=== PATIENT | male | born 1950 ===

== ENCOUNTER 2023-09-02 10:47 | Outpatient (AMB) | payer MEDICARE, MEDICAID, SELFPAY ==
[2023-09-02 10:55] VITALS: BP 163/83; PULSE 78; RESP 14; O2SAT 96; BMI 26.4
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
== END 2023-09-06 14:22 | disposition home or self-care (01) ==
PROVIDERS: PCP Physical Medicine & Rehabilitation; Visit Provider Internal Medicine
DX: M54.51 Vertebrogenic low back pain (principal); M47.816 Spondylosis without myelopathy or radiculopathy, lumbar region; M54.16 Radiculopathy, lumbar region
CPT/HCPCS: 99204

== ENCOUNTER → 2023-09-02 10:47 | Outpatient (BNVA) | payer MEDICARE, MEDICAID, SELFPAY | PROVIDERS: PCP Physical Medicine & Rehabilitation; Visit Provider Internal Medicine | DX: M54.51 Vertebrogenic low back pain (principal); M47.816 Spondylosis without myelopathy or radiculopathy, lumbar region; M54.16 Radiculopathy, lumbar region | CPT/HCPCS: 99202 ==

== ENCOUNTER 2023-10-12 08:53 | Outpatient (AMB) | payer MEDICARE, MEDICAID, SELFPAY ==
--- NOTE | 2023-10-12 09:32 | MHC.OFFVIS ---
Vital Signs 10/12/23 09:34 Height 6 ft Weight 195 lb BMI 26.4 BP 157/86 H Blood Pressure Location Rt brachial Position Sitting Respiration 15 Pulse 86 Pulse Source Pulse Oximeter Pulse Oximetry (%) 96 Oxygen Delivery Method Room Air Intake Visit Reasons: 6 Week Follow Up Allergies No Known Allergies Allergy (Verified 10/12/23 09:35) Medication List - Last Reconciled 10/12/23 by Marilu Rincon LPN amlodipine 5 mg PO BID cholecalciferol (vitamin D3) 50 mcg PO DAILY diazepam (Valium) 0.5 mg PO BID PRN irbesartan (Avapro) 300 mg PO DAILY rosuvastatin (Crestor) 40 mg PO DAILY tamsulosin 0.4 mg PO BEDTIME HPI HPI 6 Week Follow Up: Details: 72-year-old male who presents today to the office for a follow-up. He reports he has a long standing history of sciatica pain with worsening symptoms for the past 11 months. He notices he has difficulty lifting his hand up to his chin. He has excruciating pain in the back and lumbar area along with sciatica associated with difficulty bending over. 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 He recalls he had an injury to the back for which he was seen in the [place], and had taken many months to recover. He has been evaluated by Dr. Thomson and Dr. CHAVES. He has had 2 TFESI at the L4-L5 with [address] Thomson which provided some benefit. He states Dr. Cortez refused to operate for his sciatica pain. He is taking ibuprofen. He had an MRI scan at [facility]. She requests referral to a different spine surgery facility for a 2nd opinion. [facility] Medical History (Updated 09/05/23 @ 11:19 by Feliberto Delgadillo MD) BPH (benign prostatic hyperplasia) Hyperlipidemia Hypertension Physical Exam Vital Signs: Last Vital Signs Pulse 86 10/12/23 09:34 Resp 15 10/12/23 09:34 BP 157/86 H 10/12/23 09:34 Pulse Ox 96 10/12/23 09:34 Oxygen Delivery Method Room Air 10/12/23 09:34 BMI result Body Mass Index 26.4 General: Appears afebrile. Alert and oriented. Mood and affect appropriate. Follows and participates in conversation appropriately. Respiratory effort is unlabored. Able to transition from sit to stand unassisted. Ambulates with bilaterally normal heel strike and toe off. Assessment & Plan Assessment & Plan (1) Lumbar radiculitis: Code(s): M54.16 - Radiculopathy, lumbar region Category: Medical (2) Vertebrogenic low back pain: Code(s): M54.51 - Vertebrogenic low back pain Category: Medical Plan 73-year-old male with a combination of lumbar radiculitis causing left leg pain as well as vertebrogenic low back pain. I had a long discussion with him, and explained to him that while we can address his axial low back pain with a potential basivertebral nerve ablation, this is unlikely to help with his lumbar radicular symptoms. He has had 2 prior TFESIs that have provided positive diagnostic relief at the left L4-5 level. I recommended that he follow-up with an endoscopic supine surgeon to assess his candidacy for an endoscopic diskectomy/decompression. Once his lumbar radicular symptoms are addressed, we can potentially revisit the basivertebral nerve ablation for the axial low back component of his pain. Patient expressed understanding and is in agreement with the plan. He will contact Dr. Thomson to place a referral for [facility]. Scribed for Dr. Delgadillo by Alejandro medical illustrator, on 10/12/2023. I, Dr. Delgadillo, have personally reviewed and agree with the information entered by the scribe. Coding Level of Care Code Est Pt Level 4 (13339) Diagnoses Lumbar radiculitis M54.16 Vertebrogenic low back pain M54.51
[2023-10-12 09:34] VITALS: BP 157/86; PULSE 86; RESP 15; O2SAT 96; BMI 26.4
== END 2023-10-12 10:19 | disposition home or self-care (01) ==
PROVIDERS: PCP Physical Medicine & Rehabilitation; Visit Provider Internal Medicine
DX: M54.16 Radiculopathy, lumbar region (principal); M54.51 Vertebrogenic low back pain
CPT/HCPCS: 99214

== ENCOUNTER → 2023-10-12 08:53 | Outpatient (BNVA) | payer MEDICARE, MEDICAID, SELFPAY | PROVIDERS: PCP Physical Medicine & Rehabilitation; Visit Provider Internal Medicine | DX: M54.16 Radiculopathy, lumbar region (principal); M54.51 Vertebrogenic low back pain | CPT/HCPCS: 99212 ==

== ENCOUNTER 2023-11-07 09:25 | Outpatient (AMB) | payer MEDICARE, MEDICAID, SELFPAY ==
--- NOTE | 2023-11-07 10:06 | MHC.OFFVIS ---
Vital Signs 11/07/23 10:09 Height 6 ft Weight 195 lb BMI 26.4 BP 130/76 Blood Pressure Location Lt brachial Position Sitting Respiration 14 Pulse 80 Pulse Source Pulse Oximeter Pulse Oximetry (%) 98 Oxygen Delivery Method Room Air Intake Visit Reasons: Lumbar Pain/Discuss Ablations Allergies No Known Allergies Allergy (Verified 11/07/23 10:09) Medication List - Last Reconciled 11/07/23 by Marilu Rincon LPN amlodipine 5 mg PO BID cholecalciferol (vitamin D3) 50 mcg PO DAILY clonidine HCl 0.2 mg PO BID diazepam (Valium) 0.5 mg PO BID PRN irbesartan (Avapro) 300 mg PO DAILY rosuvastatin (Crestor) 40 mg PO DAILY tamsulosin 0.4 mg PO BEDTIME HPI HPI Lumbar Pain/Discuss Ablations: Details: 73-year-old male who presents today to the office for lumbar pain and discussion of BVN ablation. He had neck fusion surgery in the recent past. He states that he had limited ROM for three weeks post-surgery. He has also tried oxycodone with no relief. He was put in new orthotics after six months. He has been following up with the womens health nurse practitioner. He states that his bone in the foot is different. His weight has been affecting his bones. He requested to undergo a nerve ablation procedure for lower back pain. He has difficulty sitting straight for prolonged periods of time. He reports severe pain with weight bearing. He had a sciatic-pain attack and was seen in the ER. He states that he also saw a neurologist, who recommended evaluation for lumbar surgery. He was taking oral medications with minimal benefits. He had five epidural steroid injections and two transforaminal injections in the past. He lives alone and has no support for dressing changes at home. [facility] Medical History (Updated 09/05/23 @ 11:19 by Feliberto Delgadillo MD) BPH (benign prostatic hyperplasia) Hyperlipidemia Hypertension Review of Systems Const All systems reviewed & are unremarkable except as noted in HPI and below Physical Exam Vital Signs: Last Vital Signs Pulse 80 11/07/23 10:09 Resp 14 11/07/23 10:09 BP 130/76 11/07/23 10:09 Pulse Ox 98 11/07/23 10:09 Oxygen Delivery Method Room Air 11/07/23 10:09 BMI result Body Mass Index 26.4 General: Appears afebrile. Alert and oriented. Mood and affect appropriate. Follows and participates in conversation appropriately. Respiratory effort is unlabored. Able to transition from sit to stand unassisted. Ambulates with bilaterally normal heel strike and toe off. Results Reviewed Results Reviewed: No imaging is available for review. Assessment & Plan Assessment & Plan (1) Vertebrogenic low back pain: Code(s): M54.51 - Vertebrogenic low back pain Category: Medical (2) Lumbar radiculitis: Code(s): M54.16 - Radiculopathy, lumbar region Category: Medical Plan Discussed trying diagnostic facet injections prior to proceeding with basi-vertebral nerve ablation procedure as possible treatment option but he is not interested in short term solution. Therefore we will schedule him for a BVN ablation at L3-L4-L5 S1 level for vertebrogenic low back pain associated with Modic changes on MRI. Discussed the risks and benefits of the procedure with the patient in detail. All questions were answered. The patient is on board with the plan. Advised follow-up with spine surgery to continue discussions regarding addressing his radicular symptoms. Justification for interventional therapy: ? Patient with average pain > 6/10 ? Patient has exhausted conservative therapy ? Patient unable to tolerate physical therapy due to pain. . Patient has a good understanding of their pain condition and has appropriate mental and social support Scribed for Dr. Delgadillo by Herman White, medical staff coordinator, on 11/07/2023. I, Dr. Delgadillo, have personally reviewed and agree with the information entered by the scribe. Coding Level of Care Code Est Pt Level 3 (25920) Diagnoses Vertebrogenic low back pain M54.51 Lumbar radiculitis M54.16
[2023-11-07 10:09] VITALS: BP 130/76; PULSE 80; RESP 14; O2SAT 98; BMI 26.4
== END 2023-11-07 10:53 | disposition home or self-care (01) ==
LOC: HO.PMC 09:26
PROVIDERS: PCP Physical Medicine & Rehabilitation; Visit Provider Internal Medicine
DX: M54.51 Vertebrogenic low back pain (principal); M54.16 Radiculopathy, lumbar region
CPT/HCPCS: 99213

== ENCOUNTER → 2023-11-07 09:25 | Outpatient (BNVA) | payer MEDICARE, MEDICAID, SELFPAY | PROVIDERS: PCP Physical Medicine & Rehabilitation; Visit Provider Internal Medicine | DX: M54.51 Vertebrogenic low back pain (principal); M54.16 Radiculopathy, lumbar region | CPT/HCPCS: 99212 ==

== ENCOUNTER 2023-12-28 09:29 | Day surgery (SDC) | payer MEDICARE, MEDICAID, SELFPAY ==
--- NOTE | 2023-12-27 09:57 | P.CONAN_ITS ---
Documented by User: Heydi Taveras NP 12/27/23 09:57 HPI - Anesthesia Eval Consult details Narrative: 73yo M for L3,L4,L5 and S1 Basivertebral Nerve Ablation (Intracept RFA) PMFSH Active Problems Active Problems: All Active Problems Lumbar radiculitis (Acute) Lumbar spondylosis (Acute) Vertebrogenic low back pain (Acute) Past Medical History Medical History (Updated 12/28/23 @ 10:22 by Leslie Gillis, RN) Pre-diabetes BRIANA (obstructive sleep apnea) BPH (benign prostatic hyperplasia) Hyperlipidemia Hypertension Surgical History Surgical History (Updated 12/28/23 @ 10:24 by Leslie Gillis RN) History of orthopedic surgery H/O hernia repair History of knee replacement Social History Social History Are you a primary personal care assistant to a significant other at home: No Do you presently have visiting nurse or other home services: No Patient Tobacco Use Status: Never used Tobacco Use of substances other than those prescribed or required for medical reasons: No Have you been hit, kicked, punched, or otherwise hurt by someone within the past year? If so, by whom?: No Are you DNR?: No Advance Directives: No Advance Directives Information Provided: Yes (Sister Hyun Green/Yefri (per patient)) Advance Directives on File: No Recently lost weight without trying: No How much weight loss: Not applicable Eating poorly because of decreased appetite: No Nutrition screen score: 0 Nutrition Risks: No Nutritional Risk Poor oral hygiene: No Meds Allergies Allergy/AdvReac Type Severity Reaction Status Date / Time No Known Allergies Allergy Verified 12/28/23 10:11 Home Medications ?Medication ?Instructions ?Recorded ?Confirmed ?Last Taken ?Type amlodipine 5 mg tablet 5 mg PO BID 09/02/23 12/28/23 12/28/23 History cholecalciferol (vitamin D3) 50 50 mcg PO DAILY 09/02/23 12/28/23 Unknown History mcg (2,000 unit) capsule diazepam 2 mg tablet (Valium) 0.5 mg PO BID PRN Anxiety 09/02/23 12/28/23 Unknown History irbesartan 300 mg tablet (Avapro) 300 mg PO DAILY 09/02/23 12/28/23 12/27/23 History rosuvastatin 40 mg tablet (Crestor) 40 mg PO DAILY 09/02/23 12/28/23 Unknown History tamsulosin 0.4 mg capsule 0.4 mg PO BEDTIME 09/02/23 12/28/23 Unknown History clonidine HCl 0.1 mg tablet 0.2 mg PO BID 11/07/23 12/28/23 Unknown History Assessment and Plan Assessment Anesthesia Assessment: Chart Reviewed Documented by User: Tashia Escobar MD 12/28/23 11:10 [facility] Past Medical History Medical History (Updated 12/28/23 @ 10:22 by Leslie Gillis RN) Pre-diabetes BRIANA (obstructive sleep apnea) BPH (benign prostatic hyperplasia) Hyperlipidemia Hypertension Family History Family history of problems with anesthesia: No Surgical History Surgical History (Updated 12/28/23 @ 10:24 by Leslie Gillis RN) History of orthopedic surgery H/O hernia repair History of knee replacement History of Problems with Anesthesia: No Social History Social History Are you a primary personal care assistant to a significant other at home: No Do you presently have visiting nurse or other home services: No Patient Tobacco Use Status: Never used Tobacco Use of substances other than those prescribed or required for medical reasons: No Have you been hit, kicked, punched, or otherwise hurt by someone within the past year? If so, by whom?: No Are you DNR?: No Advance Directives: No Advance Directives Information Provided: Yes (Sister Hyun Green/Yefri (per patient)) Advance Directives on File: No Recently lost weight without trying: No How much weight loss: Not applicable Eating poorly because of decreased appetite: No Nutrition screen score: 0 Nutrition Risks: No Nutritional Risk Poor oral hygiene: No Meds Allergies Allergy/AdvReac Type Severity Reaction Status Date / Time No Known Allergies Allergy Verified 12/28/23 10:11 Home Medications ?Medication ?Instructions ?Recorded ?Confirmed ?Last Taken ?Type amlodipine 5 mg tablet 5 mg PO BID 09/02/23 12/28/23 12/28/23 History cholecalciferol (vitamin D3) 50 50 mcg PO DAILY 09/02/23 12/28/23 Unknown History mcg (2,000 unit) capsule diazepam 2 mg tablet (Valium) 0.5 mg PO BID PRN Anxiety 09/02/23 12/28/23 Unknown History irbesartan 300 mg tablet (Avapro) 300 mg PO DAILY 09/02/23 12/28/23 12/27/23 History rosuvastatin 40 mg tablet (Crestor) 40 mg PO DAILY 09/02/23 12/28/23 Unknown History tamsulosin 0.4 mg capsule 0.4 mg PO BEDTIME 09/02/23 12/28/23 Unknown History clonidine HCl 0.1 mg tablet 0.2 mg PO BID 11/07/23 12/28/23 Unknown History Exam Airway Mallampati Class: II (caps laterally) TM Dist: >3cm Neck ROM: Full Heart: rrr Lungs: cta Assessment and Plan Assessment Anesthesia Assessment: Anesthesia Plan Discussed Final Anesthetic Review Family History of Problems with Anesthesia: No History of Problems with Anesthesia: No NPO: Yes ASA Class: III Final Preanesthetic Review: No Changes in Pt Med Stat, Meds/Allgs Chart Reviewed and Consent Obtained/Reviewed Patient Risk: Low Procedure Risk: Low Anesthetic Plan Anesthetic Plan: GA Disposition: Standard PACU
[2023-12-28] VITALS (10 sets, daily range): BP systolic 142–167; BP diastolic 79–92; PULSE 77–81; RESP 16–20; TEMP 36.2–37; O2SAT 91–96; BMI 26.2
[2023-12-28] MEDS: Lactated Ringers 1,000 ML 100 ML IVCONT (10:51)
[2023-12-28] MEDS: dexAMETHasone sod phosphate 4 MG/ML VIAL IVPUSH (10:51)
[2023-12-28 12:08] LABS: MRSA Nasal PCR NEGATIVE (Negative); SA Nasal PCR POSITIVE (Negative)
--- NOTE | 2023-12-28 12:14 | MHC.SHP ---
Pre-Procedural Eval Section A - 24 Hr Update-Section A only Date of Service: 12/28/23 The patient is an INPATIENT: No Changes since office visit: Yes Patient answered all questions The patient has been examined within 24 hours of the surgical procedure. The History & Physical has been completed within 30 days and I have reviewed it.: No Section B - Complete if H&P > 30 days Chief Complaint: Vertebrogenic low back pain Relevant Family History (Specify if Yes): No Relevant Social History: None Present Medications: see Short Stay Collaborative assessment Medical History: No relevant PMH History of Previous Operations: No relevant previous surgery Allergies: Allergies Allergy/AdvReac Type Severity Reaction Status Date / Time No Known Allergies Allergy Verified 12/28/23 10:11 Review of Systems Sugical H&P ROS: Negative: Constitution, Cardiovascular and Respiratory Exam Surgical H&P Exam: Normal: HEENT, Normal: Heart and Normal: Lungs Plan Diagnosis/Plan: Unchanged I have reviewed the history and physical and performed a pertinent physical examination on my patient. No changes have occurred unless specified. Time Spent With Patient Time: Total time managing care of this patient today ____ minutes.
--- NOTE | 2023-12-28 14:55 | PM.OP ---
Brief Operative Note Date of Service: 12/28/23 Pre-op diagnosis: Vertebrogenic low back pain Post-op diagnosis: same Procedure: Basivertebral nerve ablation (Intracept procedure) L3, L4, L5, S1 Surgeon: Feliberto Delgadillo MD Anesthesia: GETA Was an Feltmaker And Weigher used for this Procedure?: No Estimated blood loss (mL): 20 Pathology: none sent Condition: stable Disposition: PACU
--- NOTE | 2023-12-28 14:56 | P.OP_ITS ---
Operative Note Operative Note Date of Service: 12/28/23 Narrative: Preoperative diagnosis: Vertebrogenic low back pain Postoperative diagnosis: Same Procedure: Basivertebral nerve (BVN) ablation ? Intracept Procedure L3, L4, L5, S1 Procedure Time Out: Patient ID confirmed, correct procedure to be performed, correct site and/or side for procedure as per marked location and correct medication(s), including antibiotic to be used for the procedure. Description of Procedure: After receiving anesthesia in the supine position, the patient was placed prone on the operating room table and all pressure points w ere appropriately padded. The back was sterilely prepped and draped. The C-arm was sterilely draped and moved into position to visualize the S1 vertebral body in the AP and lateral plane. The C-arm was rotated to a Horn view to square off the superior endplate at S1. The C-arm was then rotated to the right approximately 15-20 degrees for an approach to the right S1 pedicle. The skin entry point was identified and infiltrated with 1% lidocaine using a 25-gauge 1- 1/2 inch needle. A 22-gauge 5-inch spinal needle was used to anesthetize the track to the pedicle and periosteum and confirm the introducer cannula trajectory. A skin incision was made with 15 scalpel blade. The introducer cannula with bevel tip was then introduced through the skin, subcutaneous tissue and paraspinal muscle until bony contact was made. The position was checked in the AP and lateral plane. Using a mallet, the trocar was then advanced thru the pedicle to the posterior aspect of the vertebral body using a combination of AP and lateral views to ensure appropriate traversing of the pedicle and no breaching of the pedicle medially. Once the trocar was in the posterior aspect of the S1 vertebral body, the trocar was removed from the cannula and the curved cannula assembly with the nitinol J-stylet was inserted. The spin wheel was rotated counterclockwise permitting excursion of the J-stylet. The curved can nula assembly was then advanced using a mallet in 1-2 mm increments. The J- stylet was observed to traverse the vertebral body in the AP and lateral views. The J-stylet was removed and replaced with the straight stylet to reach the BVN target. Target was reached when the tip of the stylet was 50% anterior of the posterior wall of the S1 in the lateral view (midway between the superior and inferior endplates) and it crossed the midline of the S1 spinous process in the AP view. The stylet was then removed. The bipolar radiofrequency (RF) probe was connected to the generator and then inserted into the introducer cannula in its ablation position. The spin wheel was rotated clockwise to retract the PEEK sleeve to expose the proximal electrode on the radiofrequency probe. The BVN was then ablated using [employer]?s targeted RFG algorithm. While the ablation was occurring at S1, the C-arm was moved to visualize the target at the superolateral aspect of the L5 vertebral body. The C-arm was rota devan to square off the superior endplate at L5 and rotated left to obtain an oblique view. The superolateral left L5 pedicle was identified for access. The same process was utilized to place the tip of the cannular 40% anterior of the posterior wall of the L5 in the lateral view and it crossed the midline of the L5 spinous process in the AP view. The stylet was then removed. The bipolar radiofrequency (RF) probe was removed from the previous vertebral body, the tip cleaned and was inserted into the introducer cannula in its ablation position. The spin wheel was rotated clockwise to retract the PEEK sleeve to expose the proximal electrode on the radiofrequency probe. The BVN was then ablated using [employer]?s targeted RFG algorithm. While the ablation was occurring at L5, the C-arm was moved to visualize the target at the superolateral aspect of the L3 vertebral body using the approach similar to the L5 vertebral body. The C-arm was rotated to square off the superior endplate at L3 and rotated approximately to the right to obtain an oblique view. The superolateral right L3 pedicle was identified, and the skin entry point identified. Same steps were followed as for L5. Target was reached when the tip of the stylet was 30% anterior of the posterior wall of the L3 in the lateral view and it crossed the midline of the L3 spinous process in the AP view. The stylet was then removed. The bipolar radiofrequency (RF) probe was removed from the previous vertebral body, the tip cleaned and was inserted into the introducer cannula in its ablation position. The spin wheel was rotated cl ockwise to retract the PEEK sleeve to expose the proximal electrode on the radiofrequency probe. The BVN was then ablated using [employer]?s targeted RFG algorithm. While the ablation was occurring at L3, the C-arm was moved to visualize the target at the superolateral aspect of the L4 vertebral body. The C-arm was rotated to square off the superior endplate at L4 and rotated left to obtain an oblique view. The superolateral left L4 pedicle was identified for access. The same process was utilized to place the tip of the cannular 30% anterior of the posterior wall of the L4 in the lateral view and it crossed the midline of the L4 spinous process in the AP view. The stylet was then removed. The bipolar radiofrequency (RF) probe was removed from the previous vertebral body, the tip cleaned and was inserted into the introducer cannula in its ablation position. The spin wheel was rotated clockwise to retract the PEEK sleeve to expose the proximal electrode on the radiofrequency probe. The BVN was then ablated using [employer]?s targeted RFG algorithm. With all ablations completed, the instruments were removed from the vertebral bodies. The surgical wounds were closed with Mastisol and Steri-Strips and a sterile dressing was applied. The patient was returned to the supine position and the anesthesia reversed. The patient tolerated the procedure well and was brought to the recovery room. No changes in lower extremity strength or sensation was reported by the patient in the PACU. The patient was provided post-op and follow up instructions. Complications: None Estimate Blood Loss: 20 mL
[2023-12-28] MEDS: fentaNYL citrate/PF 100 MCG/2 ML VIAL 50 MCG IVPUSH (15:12)
== END 2023-12-28 16:22 | disposition home or self-care (01) ==
PROVIDERS: Registered Nurse Emergency; PCP Internal Medicine; Visit Provider Internal Medicine
PROC: (CPT 64628; principal; 2023-12-28 11:30)
DX: M54.51 Vertebrogenic low back pain (principal); M54.16 Radiculopathy, lumbar region; I10 Essential (primary) hypertension; E78.5 Hyperlipidemia, unspecified; R73.03 Prediabetes; N40.0 Benign prostatic hyperplasia without lower urinary tract symptoms; G47.33 Obstructive sleep apnea (adult) (pediatric); Z79.899 Other long term (current) drug therapy; Z98.1 Arthrodesis status
CPT/HCPCS: 64628; 64629 ×2; 87640; 87641; C1889; J0690; J1100; J2003; J2371; J2405; J2704; J3010

== ENCOUNTER → 2023-12-28 09:29 | Outpatient (BNV) | payer MEDICARE, MEDICAID, SELFPAY | PROVIDERS: PCP Internal Medicine; Visit Provider Internal Medicine | DX: M54.51 Vertebrogenic low back pain (principal) | CPT/HCPCS: 64628; 64629 ==

== ENCOUNTER 2024-01-04 08:33 | Outpatient (AMB) | payer MEDICARE, MEDICAID, SELFPAY ==
[2024-01-04 09:05] VITALS: BP 180/88; PULSE 72; RESP 15; O2SAT 95; BMI 26.3
--- NOTE | 2024-01-04 09:05 | MHC.OFFVIS ---
Vital Signs 01/04/24 09:05 Height 6 ft 1 in Weight 199 lb BMI 26.3 BP 180/88 H Blood Pressure Location Lt radial Position Sitting Respiration 15 Pulse 72 Pulse Source Pulse Oximeter Pulse Oximetry (%) 95 Oxygen Delivery Method Room Air Intake Visit Reasons: S/p L3, L4, L5, and S1 BVN (Intracept) 12/28/23 Allergies No Known Allergies Allergy (Verified 01/04/24 09:08) Medication List - Last Reconciled 01/04/24 by Marilu Rincon LPN amlodipine 5 mg PO BID cholecalciferol (vitamin D3) 50 mcg PO DAILY clonidine HCl 0.2 mg PO BID diazepam (Valium) 0.5 mg PO BID PRN irbesartan (Avapro) 300 mg PO DAILY oxycodone-acetaminophen 5-325 mg 1 tab PO TID PRN rosuvastatin (Crestor) 40 mg PO DAILY tamsulosin 0.4 mg PO BEDTIME HPI HPI S/p L3, L4, L5, and S1 BVN (Intracept) 12/28/23: Details: 73-year-old male who presents today to the office for status post L3, L4, L5, S1 BVN ablation. The patient reports mild initial relief following the procedure. He has been doing well since the surgery. He continues to have some soreness at the needle insertion sites, his left side feels better than the right, but seems to be improving at this point.He has been having some polyarticular pain issues, especially in his shoulders, worse on the left side than right, which have been very painful lately. He reports pain with ROM. He also reports pain in the hip which radiates down to the ankles. He reports difficulty getting up from the chair and sleeping due to pain. He notices his pain is more muscular which is different from before. He is following up with a surgeon next week, and is inquiring if he needs to wait for injection until he sees him. He reports pain in the bottom of the feet and he was previous advised to wear arch supports. He is taking Percocet, which causes weakness, dizzy, nausea, headache, and vomiting. He used to be on oxycodone in the past with benefit. He reports feeling anxious and depressed due to his health condition. He is planning to receive medication for anxiety. He was noted to have elevated BP and his initial BP was 185/111 today. He is seeing a nephrology for elevated BP. He was advised to avoid NSAIDs. Past procedures 12/28/23: Basivertebral nerve (BVN) ablation ? Intracept Procedure L3, L4, L5, S1: mild initial relief. [facility] Medical History (Updated 01/17/24 @ 08:29 by Feliberto Delgadillo MD) Pre-diabetes BRIANA (obstructive sleep apnea) BPH (benign prostatic hyperplasia) Hyperlipidemia Hypertension Surgical History (Updated 12/28/23 @ 10:24 by Leslie Gillis RN) History of orthopedic surgery H/O hernia repair History of knee replacement Social History Are you a primary critical care clinical nurse specialist to a significant other at home: No Do you presently have visiting nurse or other home services: No Patient Tobacco Use Status: Never used Tobacco Review of Systems Const All systems reviewed & are unremarkable except as noted in HPI and below Physical Exam Vital Signs: Last Vital Signs Pulse 72 01/04/24 09:05 Resp 15 01/04/24 09:05 BP 180/88 H 01/04/24 09:05 Pulse Ox 95 01/04/24 09:05 Oxygen Delivery Method Room Air 01/04/24 09:05 BMI result Body Mass Index 26.3 General: Appears afebrile. Alert and oriented. Mood and affect appropriate. Follows and participates in conversation appropriately. Respiratory effort is unlabored. Able to transition from sit to stand unassisted. Ambulates with bilaterally normal heel strike and toe off. Incisions well healed. Results Reviewed Results Reviewed: No imaging is available for review. Assessment & Plan Assessment & Plan (1) Vertebrogenic low back pain: Code(s): M54.51 - Vertebrogenic low back pain Category: Medical (2) Chronic shoulder pain: Code(s): M25.519 - Pain in unspecified shoulder; G89.29 - Other chronic pain Category: Medical Plan Discussed intraarticular steroid injection vs PRP injection vs temporary nerve stimulation and permanent nerve stimulation as possible treatments for the shoulder pain. The patient will continue his home exercise program for low back rehabilitation. For his shoulder, he has a follow-up coming up with Dr. Walker. I asked him to have Dr. Walker fax us their notes and exam findings and we can potentially then plan for an ultrasound guided intraarticular glenohumeral/supraspinatus tendon injection. I also discussed PRP and temporary PNS with him, but he would like to hold off on those options for now. Scribed for Dr. Delgadillo by Alejandro medical office representative, on 01/04/2024. I, Dr. Delgadillo, have personally reviewed and agree with the information entered by the scribe. Coding Level of Care Code Est Pt Level 4 (04866) Diagnoses Vertebrogenic low back pain M54.51 Chronic shoulder pain M25.519; G89.29
== END 2024-01-04 09:42 | disposition home or self-care (01) ==
PROVIDERS: PCP Internal Medicine; Visit Provider Internal Medicine
DX: M54.51 Vertebrogenic low back pain (principal); M25.519 Pain in unspecified shoulder; G89.29 Other chronic pain
CPT/HCPCS: 99024

== ENCOUNTER → 2024-01-04 08:33 | Outpatient (BNVA) | payer MEDICARE, MEDICAID, SELFPAY | PROVIDERS: PCP Internal Medicine; Visit Provider Internal Medicine | DX: M54.51 Vertebrogenic low back pain (principal); M25.519 Pain in unspecified shoulder; G89.29 Other chronic pain; Z98.890 Other specified postprocedural states | CPT/HCPCS: 99212 ==

== ENCOUNTER 2024-01-25 10:31 | Outpatient (AMB) | payer MEDICARE, MEDICAID, SELFPAY ==
--- NOTE | 2024-01-25 10:39 | MHC.OFFVIS ---
Vital Signs 01/25/24 10:41 Height 6 ft 1 in Weight 199 lb BMI 26.3 BP 150/84 H Blood Pressure Location Lt brachial Position Sitting Respiration 15 Pulse 90 Pulse Source Pulse Oximeter Pulse Oximetry (%) 98 Oxygen Delivery Method Room Air Intake Visit Reasons: Shoulder Injetion Allergies No Known Allergies Allergy (Verified 01/25/24 10:42) Medication List - Last Reconciled 01/25/24 by Marilu Rincon LPN amlodipine 5 mg PO BID cholecalciferol (vitamin D3) 50 mcg PO DAILY clonidine HCl 0.2 mg PO BID diazepam (Valium) 0.5 mg PO BID PRN irbesartan (Avapro) 300 mg PO DAILY oxycodone-acetaminophen 5-325 mg 1 tab PO TID PRN rosuvastatin (Crestor) 40 mg PO DAILY tamsulosin 0.4 mg PO BEDTIME HPI HPI Shoulder Injetion: Details: 73-year-old male who presents to the office today for bilateral glenohumeral injection. He reports having sciatica pain which radiates down to the knees. He has had epidural injection to the back with Dr. Thomson. He still continues to have pain in the bilateral shoulder. He is following up with Dr. Santamaria next week, and is planning to discuss possible surgery. He notices pain in the scapular region while holding his pants. He states he underwent neck fusion with Dr. Slater. He used to do 20-35 bicep curls but is not able to do it now due to pain. He is frustrated that he is not able to workout. He had injections under fluoroscopy in 2021. He is inquiring about ablation. Denies any recent cough, cold, infection, fever or other significant changes in medical history since last office visit. Past procedures 12/28/23: Basivertebral nerve (BVN) ablation ? Intracept Procedure L3, L4, L5, S1: Reduced axial low back pain. [facility] Medical History (Updated 01/17/24 @ 08:29 by Feliberto Delgadillo MD) Pre-diabetes BRIANA (obstructive sleep apnea) BPH (benign prostatic hyperplasia) Hyperlipidemia Hypertension Surgical History (Updated 12/28/23 @ 10:24 by Leslie Gillis RN) History of orthopedic surgery H/O hernia repair History of knee replacement Social History Are you a primary respiratory care instructor to a significant other at home: No Do you presently have visiting nurse or other home services: No Patient Tobacco Use Status: Never used Tobacco Review of Systems Const All systems reviewed & are unremarkable except as noted in HPI and below Physical Exam Vital Signs: Last Vital Signs Pulse 90 01/25/24 10:41 Resp 15 01/25/24 10:41 BP 150/84 H 01/25/24 10:41 Pulse Ox 98 01/25/24 10:41 Oxygen Delivery Method Room Air 01/25/24 10:41 BMI result Body Mass Index 26.3 General: Appears afebrile. Alert and oriented. Mood and affect appropriate. Follows and participates in conversation appropriately. Respiratory effort is unlabored. Able to transition from sit to stand unassisted. Ambulates with bilaterally normal heel strike and toe off. Office Procedures AMB Joint Injection/Aspiration Joint Injection/Aspiration Primary Site: right shoulder Secondary Site: left shoulder Prep: site was prepped using aseptic technique and site was prepped using sterile technique Injected: 40 mg of, Kenalog, with 0.25 mL of and with 3 mL of (ropivacaine ) Procedure: The patient tolerated the procedure well Coding Details: An ultrasound image of the injection was taken and stored in the permanent record. - Glenohumeral with ultrasound guidance Procedure code (CPT) selection complete Results Reviewed Results Reviewed: Ultrasound exam did not reveal any obvious calcific tendinitis or rotator cuff pathology in either shoulder. Assessment & Plan Assessment & Plan (1) Chronic shoulder pain: Code(s): M25.519 - Pain in unspecified shoulder; G89.29 - Other chronic pain Category: Medical (2) Vertebrogenic low back pain: Code(s): M54.51 - Vertebrogenic low back pain Category: Medical Plan Patient is status post bilateral glenohumeral injections under US-guidance. Patient tolerated procedure well and was discharged home in stable condition with discharge instructions. All questions were answered. Follow up as needed. Scribed for Dr. Delgadillo by Alejandro bilingual medical receptionist, on 01/25/2024. I, Dr. Delgadillo, have personally reviewed and agree with the information entered by the scribe. Coding Level of Care Code Procedure Only Diagnoses Chronic shoulder pain M25.519; G89.29 Vertebrogenic low back pain M54.51 CPT Codes Coding - Joint 8: 62886 - Glenohumeral with ultrasound guidance ([id number])
[2024-01-25 10:41] VITALS: BP 150/84; PULSE 90; RESP 15; O2SAT 98; BMI 26.3
== END 2024-01-25 11:20 | disposition home or self-care (01) ==
PROVIDERS: PCP Internal Medicine; Visit Provider Internal Medicine
DX: M25.511 Pain in right shoulder (principal); G89.29 Other chronic pain; M54.51 Vertebrogenic low back pain
CPT/HCPCS: 20611

== ENCOUNTER → 2024-01-25 | Outpatient (BNVA) | payer MEDICARE, MEDICAID, SELFPAY | PROVIDERS: PCP Internal Medicine; Visit Provider Internal Medicine | DX: M25.512 Pain in left shoulder (principal); M25.511 Pain in right shoulder; M54.51 Vertebrogenic low back pain; G89.29 Other chronic pain | CPT/HCPCS: 20610; 20611 ==

== ENCOUNTER 2024-04-16 10:17 | Outpatient (AMB) | payer MEDICARE, MEDICAID, SELFPAY ==
--- NOTE | 2024-04-16 10:38 | A.OFFVIS_ITS ---
Vital Signs 04/16/24 10:39 Height 6 ft 1 in Weight 192 lb BMI 25.3 BP 145/80 H Blood Pressure Location Rt brachial Position Sitting Pulse 93 Pulse Source Pulse Oximeter Pulse Oximetry (%) 97 Oxygen Delivery Method Room Air Intake Visit Reasons: Shoulder Injection Parts Coordinator Required: No Allergies No Known Allergies Allergy (Verified 04/16/24 10:40) Medication List - Last Reconciled 04/16/24 by Madison Gill, SUPERVISOR [employer] WORKER amlodipine 5 mg PO BID cholecalciferol (vitamin D3) 50 mcg PO DAILY clonidine HCl 0.2 mg PO BID diazepam (Valium) 0.5 mg PO BID PRN irbesartan (Avapro) 300 mg PO DAILY rosuvastatin (Crestor) 40 mg PO DAILY tamsulosin 0.4 mg PO BEDTIME HPI HPI Shoulder Injection: Details: History of Present Illness The patient is a 73-year-old male presenting with chronic shoulder pain and sleep deprivation. 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 An injection from the last visit helped alleviate the shoulder pain for a significant period, yet the pain has returned, affecting his ability to sleep. The patient describes exasperating pain specifically when sleeping on his left side, complicated by living alone amidst stressful social dynamics. The patient's musculoskeletal complaints are compounded by chronic foot pain post knee replacement, which hinders his physical activity and worsens his overall mobility. He underwent neck fusion surgery last year, which led to muscle attrition in his left arm, further limiting his physical capacity. Medications such as NSAIDs are minimally effective due to gastrointestinal constraints. Pain Description - Chronic, severe shoulder pain with epik-jo-nwci osteoarthritis. - Exacerbated pain when sleeping on the left side. - Pain radiates to the right side but less severe. - Pain markedly affects the patient's sleep and daily function. - Foot pain post bilateral knee replacement affecting gait. - Pain intensified by lack of sleep and emotional distress. Physical Exam Appears afebrile. Alert and oriented. Mood and affect appropriate. Follows and participates in conversation appropriately. Respiratory effort is unlabored. Able to transition from sit to stand unassisted. Ambulates with bilaterally normal heel strike and toe off. Able to stand and walk on toes and heels. Pain Management - Affect: The patient experiences significant psychological distress due to chronic pain and sleep deprivation. - Analgesia: Previous injections provided substantial relief; current medications include NSAIDs but are ineffective due to side effects. - Adverse Effects: Gastrointestinal side effects from NSAIDs prevent effective pain management. - Activities of Daily Living: Severely limited by pain; unable to exercise or perform basic self-care effectively. - Aberrant Drug Related Behaviors: No aberrant behaviors noted; compliance with current medication regimen. AMB Joint Injection/Aspiration Joint Injection/Aspiration Primary Site: right shoulder Secondary Site: left shoulder Prep: site was prepped using aseptic technique and site was prepped using sterile technique Injected: 40 mg of, Kenalog, with 0.25 mL of and with 3 mL of (ropivacaine ) Procedure: The patient tolerated the procedure well Coding Details: An ultrasound image of the injection was taken and stored in the permanent record. - Glenohumeral with ultrasound guidance [facility] Medical History (Updated 01/17/24 @ 08:29 by Feliberto Delgadillo MD) Pre-diabetes BRIANA (obstructive sleep apnea) BPH (benign prostatic hyperplasia) Hyperlipidemia Hypertension Surgical History (Updated 12/28/23 @ 10:24 by Leslie Glilis RN) History of orthopedic surgery H/O hernia repair History of knee replacement Social History Are you a primary primary care pediatrician to a significant other at home: No Do you presently have visiting nurse or other home services: No Patient Tobacco Use Status: Never used Tobacco Physical Exam Vital Signs: Last Vital Signs Pulse 93 04/16/24 10:39 BP 145/80 H 04/16/24 10:39 Pulse Ox 97 04/16/24 10:39 Oxygen Delivery Method Room Air 04/16/24 10:39 BMI result Body Mass Index 25.3 Assessment & Plan Assessment & Plan (1) Chronic shoulder pain: Code(s): M25.519 - Pain in unspecified shoulder; G89.29 - Other chronic pain Category: Medical (2) Lumbar radiculitis: Code(s): M54.16 - Radiculopathy, lumbar region Category: Medical Plan Plan The patient's chronic shoulder pain was addressed today with steroid injection to provide symptom relief while minimizing the risk of joint damage. The patient's limited efficacy from traditional NSAIDs can be supplemented by trying CBD gummies for potential relief. Follow-up is scheduled in three months to assess treatment response and consider further interventions. In parallel, recommendations on sleep hygiene and managing pain-induced psychological distress were made to support the patient's overall well-being. Patient was informed and verbally consented to the use of an ambient scribe for clinic note documentation during this visit. Discussion Notes During the visit, I discussed with the patient the potential benefits and risks of receiving an injection for managing chronic shoulder pain, emphasizing a reduced dosage due to potential joint damage with repeated use. The patient was informed about the possibility of future shoulder replacement surgery should conservative treatments fail. I also discussed non-pharmacologic interventions, including modifications in sleep positioning and adaptive devices. The patient expressed understanding of the discussed risks and benefits and agreed with proceeding with the injection and use of CBD gummies. A three-month follow-up was scheduled to monitor progress. I emphasized the importance of maintaining social support and implementing strategies to manage stress and improve sleep quality. Patient Instructions - Return in three months for re-evaluation. - Try CBD gummies for additional pain relief. - Practice sleep hygiene and consider sleep position modifications for comfort. - Report any adverse effects or worsening symptoms immediately. - Maintain regular follow-ups and adhere to prescribed medication regimen. Coding Level of Care Code Est Pt Level 3 (07963) Diagnoses Chronic shoulder pain M25.519; G89.29 Lumbar radiculitis M54.16
[2024-04-16 10:39] VITALS: BP 145/80; PULSE 93; O2SAT 97; BMI 25.3
--- OUTSIDE RECORDS SUMMARY | 2024-04-16 11:32 | XMS_ITS | Encounter Summary ---
Author Organization [facility] Address [address] [place] [address] Phone Care Team Providers Care Emt Name Role Phone Ja Holley MD Primary Care Provider Encounter Details Date Type Department Care Team (Late st Contact Info) Description 03/16/2024 Documentation Only [facility], [address] [place] [address] Manuela Torres [address] [place] [address] Social History Tobacco Use Types Packs/Day Years Used Date Smoking Tobacco: Never Assessed Sex and Gender Information Value Date Recorded Sex Assigned at Not on file Legal Sex Male 5:20 PM EST Gender Identity Not on file Sexual Orientation Not on file documented as of this encounter Plan of Treatment Not on file documented as of this encounter Visit Diagnoses Not on filedocumented in this encounter Care Teams Emt Relationship Specialty Start Date End Date Ja Holley MD [address] [place] [address], [address] [place] [address] PCP - General Internal Medicine 02/21/24 documented as of this encounter
--- OUTSIDE RECORDS SUMMARY | 2024-04-16 11:32 | XMS_ITS | Encounter Summary ---
Author Organization [facility] Address [address] [place] [address] Phone Care Team Providers Care Vegetable Canner Name Role Phone Ja Holley MD Primary Care Provider Encounter Details Date Type Department Care Team (Late st Contact Info) Description 03/30/2024 Office Communication [facility], [address] [place] [address] Santa Santoyo [address] [place] [address] Social History Tobacco Use Types [...] on filedocumented in this encounter Care Teams Vegetable Canner Relationship Specialty Start Date End Date Ja Holley MD [address] [place] [address], [address] [place] [address] PCP - General Internal Medicine 02/21/24 documented as of this encounter
--- OUTSIDE RECORDS SUMMARY | 2024-04-16 11:32 | XMS_ITS | Encounter Summary ---
Author Organization [facility] Address [address] [place] [address] Phone Care Team Providers Care Vendor Analyst Name Role Phone Ja Holley MD Primary Care Provider [phone] Encounter Details Date Type Department Care Team (Late st Contact Info) Description 02/21/2024 Documentation Only [facility], [address] [place] [address] Laina MunozKISSIMMEE, [place] [address] [place] [address] Social History Tobacco Use Types [...] on filedocumented in this encounter Care Teams Vendor Analyst Relationship Specialty Start Date End Date Ja Holley MD [address] [place] [address], [address] [place], [place] [phone] PCP - General Internal Medicine 02/21/24 documented as of this encounter
--- OUTSIDE RECORDS SUMMARY | 2024-04-16 11:32 | XMS_ITS | Encounter Summary ---
Author Organization [facility] Address [address] [place] [address] Phone Care Team Providers Care Diamond Expert Name Role Phone Ja Holley MD Primary Care Provider Encounter Details Date Type Department Care Team (Late st Contact Info) Description 02/24/2024 Documentation Only [facility], [address] [place] [address] Laina MunozPIERCE, [place] [address] [place] [address] Social History Tobacco Use Types [...] on filedocumented in this encounter Care Teams Diamond Expert Relationship Specialty Start Date End Date Ja Holley MD [address] [place] [address], [address] [place], [place] [phone] PCP - General Internal Medicine 02/21/24 documented as of this encounter
--- OUTSIDE RECORDS SUMMARY | 2024-04-16 11:32 | XMS_ITS | Clinical Summary ---
Author Organization [facility] Address [address] [place] [address] Phone Care Team Providers Care Data Center Manager Name Role Phone Ja Holley MD Primary Care Provider Medications doxazosin (Cardura) 2 MG tablet Take 1 tablet (2 mg total) by mouth every night 30 tablet 3 03/07/2024 Active Active Problems Problem Noted Date Diagnosed Date Essential (primary) hypertension 03/07/2024 Encounters Date Type Department Care Team Description 03/30/2024 Office Communication [facility] [address] [place] [address] Santa Santoyo 03/16/2024 Documentation Only [facility] [address] [place] [address] Manuela Torres 03/07/2024 2:30 PM EST Office Visit [facility] [address] [place] [phone] Nathan Bacon MD Hypertension (Primary Dx); Essential (primary) hypertension 02/24/2024 Documentation Only [facility] [address] [place] [address] Laina Munoz MA 02/23/2024 Telephone [facility] [address] [place] [address] Laina Munoz MA 02/23/2024 Office Communication [facility] [address] [place] [address] Laina Munoz MA 02/21/2024 Documentation Only [facility] [address] [place] [address] Laina Munoz MA from Last 3 Months Social History Tobacco Use Types Packs/Day Years Used Date Smoking Tobacco: Never Assessed Sex and Gender Information Value Date Recorded Sex Assigned at Not on file Legal Sex Male 5:20 PM EST Gender Identity Not on file Sexual Orientation Not on file Plan of Treatment Health Maintenance Due Date Last Done Comments Colorectal Cancer Screening: Annual FOBT 09/08/1999 Colorectal Cancer Screening: Colonoscopy 09/08/1999 Colorectal Cancer Screening: Sigmoidoscopy 09/08/1999 Influenza Vaccine (#1) 2023 0, 11/08/2019, 12/19/2018, Additional history exists Diabetes: Hemoglobin A1C 02/23/2024 Diabetes: Ophthalmology Exam 02/23/2024 Diabetes: Pedal Pulse Checked 02/23/2024 Diabetes: Sensory Foot Exam 02/23/2024 Diabetes: Visual Foot Exam 02/23/2024 Pneumococcal Vaccine: 65+ Years Completed 12/27/2019, 12/16/2016 Hepatitis B Vaccine Aged Out No longe r eligible based on patient's age to complete this topic Insurance * Guarantor: Albert [employer] Account Type Relation to Patient Date of Phone Billing Address Personal/Family Self [address] [place] [address] MEDICARE MEDICAID [place] * Guarantor: Albert Green Account Type Relation to Patient Date of Phone Billing Address Personal/Family Self [address] [place] [address] * Guarantor: Albert [employer] Account Type Relation to Patient Date of Phone Billing Address Personal/Family Self [address] [place] [address] Care Teams Data Center Manager Relationship Specialty Start Date End Date Ja Holley MD [address] [place] [address], [address] [place] [address] PCP - General Internal Medicine 02/21/24
== END 2024-04-16 11:36 | disposition home or self-care (01) ==
PROVIDERS: PCP Internal Medicine; Visit Provider Internal Medicine
DX: M25.519 Pain in unspecified shoulder (principal); G89.29 Other chronic pain; M54.16 Radiculopathy, lumbar region
CPT/HCPCS: 99213

== ENCOUNTER → 2024-04-16 10:17 | Outpatient (BNVA) | payer MEDICARE, MEDICAID, SELFPAY | PROVIDERS: PCP Internal Medicine; Visit Provider Internal Medicine | DX: M25.511 Pain in right shoulder (principal); M25.512 Pain in left shoulder; G89.29 Other chronic pain; M54.16 Radiculopathy, lumbar region | CPT/HCPCS: 20611; 99212; J2795; J3301 ==

== ENCOUNTER 2024-07-18 09:00 | Outpatient (AMB) | payer MEDICARE, MEDICAID, SELFPAY ==
[2024-07-18 09:15] VITALS: BP 149/81; PULSE 74; RESP 16; O2SAT 97; BMI 23.9
--- NOTE | 2024-07-18 09:15 | MHC.OFFVIS ---
Vital Signs 07/18/24 09:15 Height 6 ft 1 in Weight 181 lb BMI 23.9 BP 149/81 H Blood Pressure Location Rt brachial Position Sitting Respiration 16 Pulse 74 Pulse Source Pulse Oximeter Pulse Oximetry (%) 97 Oxygen Delivery Method Room Air Intake Visit Reasons: Shoulder Injection Marketing Account Manager Required: No Chinese Medicine Practitioner: Chinese Medicine Practitioner Present Accompanied by: Nish Howard Allergies No Known Allergies Allergy (Verified 07/18/24 09:18) Medication List - Last Reconciled 07/18/24 by Marilu Rincon LPN amlodipine 5 mg PO BID cholecalciferol (vitamin D3) 50 mcg PO DAILY clonidine HCl 0.2 mg PO BID diazepam (Valium) 0.5 mg PO BID PRN olmesartan 40 mg PO DAILY rosuvastatin (Crestor) 40 mg PO DAILY tamsulosin 0.4 mg PO BEDTIME tirzepatide (Mounjaro) mg subcut HPI HPI Shoulder Injection: Details: History of Present Illness The patient is a 73-year-old male presenting with chronic pain management concerns. The patient has a longstanding history of an adrenal tumor, which has increased in size over the years but has not yet reached the threshold for surgical intervention. The patient also reports a history of sciatica. His LBP has somewhat improved since BVN ablation. Additionally, the patient has had bilateral knee replacements and continues to experience lumbar pain, likely related to unresolved foot and ankle injuries sustained from a fall. Despite using custom orthotics, the patient remains symptomatic due to continued pronation. The patient has shoulder pain that worsens at night, and despite injections for muscle relief, the discomfort persists. Following a cervical spinal fusion, the patient has experienced muscle atrophy and weakness, particularly in the arms. The patient remains active, engaging in physical therapy and regular exercise, but continues to seek effective pain management strategies, including PRP injections. Pain Description - Chronic lumbar pain, exacerbated by biomechanical issues related to foot and ankle alignment. - Shoulder pain, particularly during sleep, following internal rotator muscle injections. - Muscle atrophy and weakness in the arms following spinal fusion. - Pain in feet and ankles due to past injuries and pronation, exacerbated by inadequate orthotics. Physical Exam - Appears afebrile. - Alert and oriented. - Mood and affect appropriate. - Follows and participates in conversation appropriately. - Respiratory effort is unlabored. Results - Labs: Elevated metanephrines, dexamethasone suppression test results indicating possible adrenal suppression. - Tests: Adrenal tumor measurements indicating growth from 2 cm to 3.8 cm. - Procedures: Lumbar injection provided temporary relief for sciatica. Pain Management - Affect: Chronic pain impacts daily life and mood. - Analgesia: History of steroid injections, considering PRP injections. - Adverse Effects: Concerns about adrenal suppression from long-term steroid use. - Activities of Daily Living: Pain interferes with normal activities, despite regular exercise and physical therapy. - Aberrant Drug Related Behaviors: No evidence of medication misuse. [facility] Medical History (Updated 01/17/24 @ 08:29 by Feliberto Delgadillo MD) Pre-diabetes BRIANA (obstructive sleep apnea) BPH (benign prostatic hyperplasia) Hyperlipidemia Hypertension Surgical History (Updated 12/28/23 @ 10:24 by Leslie Mattson RN) History of orthopedic surgery H/O hernia repair History of knee replacement Social History Are you a primary home health caregiver to a significant other at home: No Do you presently have visiting nurse or other home services: No Patient Tobacco Use Status: Never used Tobacco Physical Exam Vital Signs: Last Vital Signs Pulse 74 07/18/24 09:15 Resp 16 07/18/24 09:15 BP 149/81 H 07/18/24 09:15 Pulse Ox 97 07/18/24 09:15 Oxygen Delivery Method Room Air 07/18/24 09:15 BMI result Body Mass Index 23.9 Assessment & Plan Assessment & Plan (1) Chronic shoulder pain: Code(s): M25.519 - Pain in unspecified shoulder; G89.29 - Other chronic pain Category: Medical (2) Lumbar radiculitis: Code(s): M54.16 - Radiculopathy, lumbar region Category: Medical (3) Lumbar spondylosis: Code(s): M47.816 - Spondylosis without myelopathy or radiculopathy, lumbar region Category: Medical (4) Vertebrogenic low back pain: Code(s): M54.51 - Vertebrogenic low back pain Category: Medical Plan Plan - Discussed avoiding further steroid injections due to adrenal suppression concerns. - PRP injections considered as an alternative, though not covered by insurance. - Continue physical therapy and exercise regimen. - Follow up with adjuster arbitrator regarding adrenal tumor and function concerns. - Explore better orthotic solutions for foot and ankle alignment. Patient was informed and verbally consented to the use of an ambient scribe for clinic note documentation during this visit. Discussion Notes During the consultation, I discussed with the patient the potential risks associated with continued steroid use, particularly adrenal suppression, and the need to consult with his adjuster arbitrator. I explained the option of PRP injections as an alternative treatment for chronic pain, although it is not covered by insurance. We reviewed the patient's current exercise and physical therapy regimen, emphasizing the importance of maintaining mobility and strength. I also addressed the patient's concerns about orthotics and recommended exploring other options for better foot and ankle alignment. I advised the patient to follow up with his adjuster arbitrator regarding the adrenal tumor and potential implications of adrenal suppression. Patient Instructions - Avoid further steroid injections until further consultation with your adjuster arbitrator. - Consider PRP injections for pain management, keeping in mind they are not covered by insurance. - Continue regular physical therapy and exercise to maintain strength and mobility. - Follow up with your adjuster arbitrator regarding the adrenal tumor and discuss the possibility of adrenal suppression. - Explore alternative orthotic solutions to improve foot and ankle alignment. Coding Level of Care Code Est Pt Level 4 (36668) Diagnoses Chronic shoulder pain M25.519; G89.29 Lumbar radiculitis M54.16 Lumbar spondylosis M47.816 Vertebrogenic low back pain M54.51
--- OUTSIDE RECORDS SUMMARY | 2024-07-18 09:29 | XMS_ITS | Encounter Summary ---
Author Organization [facility] Address [address] [place] [address] Phone Care Team Providers Care Fugitive Investigator Name Role Phone Ja Holley MD Primary Care Provider Encounter Details Date Type Department Care Team (Late Contact Info) Description 02/21/2024 Documentation Only [facility] [address] [place] [address] [facility] [place], [place] [address] [place] [address] Social History Tobacco Use Types Packs/Day Years Used Date Smoking Tobacco: Never Assessed Sex and Gender Information Value Date Recorded Sex Assigned at Not on file Legal Sex Male 5:20 PM EST Gender Identity Not on file Sexual Orientation Not on file documented as of this encounter Plan of Treatment Upcoming Encounters Date Type Department Care Team (Late Contact Info) Description 11/29/2024 9:30 AM EDT Office Visit [facility] Dr Claudette CALIX [address] [place] [phone] Nathan Bacon MD [address] [place] [address] [place] [address] documented as of this encounter Visit Diagnoses Not on filedocumented in this encounter Care Teams Fugitive Investigator Relationship Specialty Start Date End Date Ja Holley MD [address] [place] [address], [address] [place] [address] PCP - General Internal Medicine 02/21/24 documented as of this encounter
== END 2024-07-18 10:14 | disposition home or self-care (01) ==
LOC: HO.PMC 09:01
PROVIDERS: PCP Internal Medicine; Visit Provider Internal Medicine
DX: M25.519 Pain in unspecified shoulder (principal); G89.29 Other chronic pain; M54.16 Radiculopathy, lumbar region; M47.816 Spondylosis without myelopathy or radiculopathy, lumbar region; M54.51 Vertebrogenic low back pain
CPT/HCPCS: 99214

== ENCOUNTER → 2024-07-18 09:00 | Outpatient (BNVA) | payer MEDICARE, MEDICAID, SELFPAY | PROVIDERS: PCP Internal Medicine; Visit Provider Internal Medicine | DX: M25.519 Pain in unspecified shoulder (principal); G89.29 Other chronic pain; M54.16 Radiculopathy, lumbar region; M47.816 Spondylosis without myelopathy or radiculopathy, lumbar region; M54.51 Vertebrogenic low back pain; Z96.653 Presence of artificial knee joint, bilateral | CPT/HCPCS: 99212 ==

== ENCOUNTER 2024-09-17 10:52 | Outpatient (AMB) | payer MEDICARE, MEDICAID, SELFPAY ==
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
[2024-09-17 11:40] VITALS: BP 166/87; PULSE 79; RESP 16; O2SAT 96; BMI 23.9
--- OUTSIDE RECORDS SUMMARY | 2024-09-17 12:08 | XMS_ITS | Encounter Summary ---
Author Organization [facility] Address [address] [place] [address] Phone Care Team Providers Care Fiber Analyst Name Role Phone Leonel Alegria MD Primary Care Provider [phone] Emile Blake MD Unavailable Andrei Coon DO Primary Care Provider Lupis Copeland MD Primary Care Provider [phone] Gordon Moralez MD Primary Care Provider Ja Holley MD Primary Care Provider [phone] Frank Mak MD Unavailable Alfonzo Perkins MD Unavailable Rosalia Vargas RN Unavailable [phone] Jamari Ellison DO Unavailable [phone] Fredi Unger MD Unavailable Elroy Calderon MD Unavailable [phone] Ja Holley MD Unavailable [phone] Bartolo Morgan MD Unavailable Molly Spring RN Unavailable Criss Cosme Unavailable [phone] Maximino Dorado MD, PhD Unavailable [phone] Maximino Dorado MD, PhD Unavailable Lincoln Thomson MD Unavailable [phone] Dhaval Slater MD Unavailable Reason for Referral * Physical Therapy (Routine) - Closed Specialty Diagnoses / Procedures Referred By Glory pablo Referred To Contact Physical Therapy Diagnoses Encounter for rehabilitation System, Provider Not In, [facility] [id number] [place] [address] [address] [place] [address] Phone: tel: Referral ID Status Reason Start Date Expiration Date Visits Re quested Visits Authorized [id number] Closed 11/07/2017 02/20/2018 99 99 Encounter Details Date Type Department Care Team (Latest Contact Info) Description 11/07/2017 Transcribe Orders [facility] [address] [place] [address] [place] [address] [email or web address] Encounter for rehabilitation (Primary Dx) Social History Tobacco Use Types Packs/Day Years Used Date Smoking Tobacco: Never Smokeless Tobacco: Never Alcohol Use Standard Drinks/Week Comments Yes 0 (1 standard drink = 0.6 oz pur e alcohol) few times a year Sex and Gender Information Value Date Recorded Sex Assigned at Male 02/19/2018 2:53 AM EST Legal Sex Male 5:26 PM EST Gender Identity Male 02/19/2018 2:53 AM EST Sexual Orientation Straight 11/22/2019 9: 30 AM EDT documented as of this encounter Plan of Treatment Upcoming Encounters Date Type Department Care Team (Late st Contact Info) Description 09/21/2024 1:30 PM EDT Office Visit [facility] Comprehensive Hypertension Program [address] [place] [address], [address] [place] [address] Rashard Garcia MD [address] [place] [address] [address] [place] [address] [email or web address] 10/03/2024 2:30 PM EDT Office Visit [facility] [address] [place] [address] Jamari Ellison DO 4 [facility], [facility] [place] [address] 10/31/2024 12:10 PM EDT Office Visit [facility] [address] [place] [address] Fredi Elaine [address] [address] 12/27/2024 1:30 PM EST Appointment Department of Radiation Oncology [address] [place] [address] Lincoln Burton, MABLE [address] [place] [address] [email or web address] 03/01/2025 10:50 AM EST Office Visit [facility] [address] [place] [address] Fred[address] Elaine [address] [address] 07/22/2025 9:40 AM EDT Office Visit [facility] [address] [place] [address] 3rd Floor, [address] [place] [address] Asif Araiza MD, [place] 22 [facility], [address] [id number] [email or web address] Scheduled Referrals Name Type Priority Associated Diagnoses Orde r Schedule Ambulatory referral to [facility] Physical Therapy Outpatient Referral Routine Encounter for rehabilitation Ordered: 11/07/2017 documented as of this encounter Visit Diagnoses Diagnosis Encounter for rehabilitation- Primary documented in this encounter Additional Health Concerns Infection Onset Date Last Indicated Resolved Time CoV-Exposed Comment:Recent close contact documented in the COVID-19 PCR/PRO order 12/04/2020 12/18/2020 12/19/2020 1:25 AM E DT CoV-Risk 01/21/2022 01/21/2022 02/01/2022 1:32 AM EST documented as of this encounter Care Teams Fiber Analyst Relationship Specialty Start Date End [place] [address] [email or web address] PCP - General Internal Medicine 05/20/17 01/07/19 Andrei Coon DO [address] [place] [phone] [email or web address] PCP - General Family Medicine 01/08/19 01/03/20 Lupis Copeland MD [address] [place] [phone] [email or web address] PCP - General Family Medicine 01/04/20 06/09/20 Gordon Moralez MD [address] [place] [phone] [email or web address] PCP - General 06/10/20 07/22/20 Ja Holley MD [address] [place] [address], [address] [place] [address] [email or web address] PCP - General Internal Medicine 07/23/20 Emile Blake MD [address] [place] [address] Gastroenterology 10/31/18 Frank Mak MD [address] [place] [address], [address] [place] [address] [email or web address] Physical Medicine and Rehabilitation 11/14/20 Alfonzo Perkins MD [address] [place], [place] [address] [address] Psychiatry 02/01/21 10/07/22 Rosalia Vargas RN [address] [place] [address] [email or web address] 02/12/21 03/10/21 Jamari Ellison DO [address] [place] [address] [facility] [place] [address] Orthopedic Surgery 07/24/21 Fredi Unger MD [address] [place] [address] Ophthalmology 07/24/21 Elroy Calderon MD [address] [place] [address], [address] [place] [address] Urology 10/27/21 Ja Holley MD [address] [place] [address], [address] [place] [address] Insurance Assigned Provider 05/28/23 Bartolo Morgan MD [address] [place] [address] Psychiatry 10/08/22 Molly Spring, KATEY [address] [place] [address] [email or web address] [facility] Beverage Host 02/07/23 Criss Cosme [address] [place] [address] [email or web address] Community Health Worker 03/29/23 03/29/23 Maximino Dorado MD, PhD [address] [place] [phone] [email or web address] 05/03/23 Maximino Dorado MD, PhD [address] [place] [phone] [email or web address] 06/01/23 06/25/23 Lincoln Thomson MD [address] [place] [address], [address] [place] [phone] [email or web address] Physical Medicine and Rehabilitation 06/26/23 Dhaval Slater MD [address] [place] [address] Dr CALIX [address] [place] [phone] Neurosurgery 07/07/23 documented as of this encounter Additional Source Comments The information contained in this document represents components of the legal health record. It is not the complete legal health record.[facility]
--- OUTSIDE RECORDS SUMMARY | 2024-09-17 12:08 | XMS_ITS | Encounter Summary ---
Author Organization [facility] Address [address] [place] [address] Phone Care Team Providers Care Tow Motor Driver Name Role Phone Ja Holley MD Primary Care Provider Encounter Details Date Type Department Care Team (Late st Contact Info) Description 07/19/2024 Documentation Only [facility], [address] [place] [address] [facility] [address] [place] [address] Social History Tobacco Use Types [...] on filedocumented in this encounter Care Teams Tow Motor Driver Relationship Specialty Start Date End Date Ja Holley MD [address] [place] [address], [address] [place] [address] PCP - General Internal Medicine 02/21/24 documented as of this encounter
== END 2024-09-17 12:35 | disposition home or self-care (01) ==
LOC: HO.PMC 10:52
PROVIDERS: PCP Internal Medicine; Visit Provider Internal Medicine
DX: M25.519 Pain in unspecified shoulder (principal); G89.29 Other chronic pain
CPT/HCPCS: 20611

== ENCOUNTER → 2024-09-17 10:52 | Outpatient (BNVA) | payer MEDICARE, MEDICAID, SELFPAY | PROVIDERS: PCP Internal Medicine; Visit Provider Internal Medicine | DX: M25.511 Pain in right shoulder (principal); M25.562 Pain in left knee; G89.29 Other chronic pain | CPT/HCPCS: 20611; J2795; J3301 ==

== ENCOUNTER 2024-09-24 12:48 | Outpatient (AMB) | payer MEDICARE, MEDICAID, SELFPAY ==
--- NOTE | 2024-09-24 12:49 | MHC.OFFVIS ---
Vital Signs 09/24/24 12:51 Height 6 ft 1 in Weight 181 lb BMI 23.9 BP 144/70 H Blood Pressure Location Lt brachial Position Sitting Respiration 16 Pulse 83 Pulse Source Pulse Oximeter Pulse Oximetry (%) 94 Oxygen Delivery Method Room Air Intake Visit Reasons: Back Pain [employer] Bus Dispatcher Required: No Allergies No Known Allergies Allergy (Verified 09/24/24 12:52) Medication List - Last Reconciled 09/24/24 by Marilu Rincon LPN amlodipine 5 mg PO BID cholecalciferol (vitamin D3) 50 mcg PO DAILY clonidine HCl 0.2 mg PO BID diazepam (Valium) 0.5 mg PO BID PRN olmesartan 40 mg PO DAILY rosuvastatin (Crestor) 40 mg PO DAILY tamsulosin 0.4 mg PO BEDTIME tirzepatide (Mounjaro) mg subcut HPI HPI Back Pain: Details: History of Present Illness The patient is a 74-year-old male presenting with chronic pain management. He reports persistent and severe pain, primarily in the back, knees, and feet, which has been ongoing for many years. The pain worsens with age and movement, despite attempts to remain active, including rowing and pool walking. The patient has a history of arthritis affecting multiple areas of his body except his hair. He has tried various medications, including ibuprofen and meloxicam, with limited relief. He expresses frustration with the lack of effective pain management options and the impact of chronic pain on his quality of life. The patient also reports sciatica, with pain radiating down both legs, and has undergone microdiscectomy in the past. His knees were replaced, but he continues to experience significant pain due to issues with his ankles and feet. He is concerned about the potential for further degeneration and disability. He has a history of hypertension and is worried about the risk of stroke, especially given his family history of stroke and his sister's experience. The patient is also experiencing muscle loss, which he attributes to a GLP-1 receptor agonist he was previously taking. He has since discontinued the medication due to concerns about muscle loss. The patient expresses a significant fear of , which he attributes to his experiences with family members' deaths and his own health challenges. He describes himself as a thanatophobe and is preoccupied with thoughts of mortality. Pain Description - Onset: Chronic, ongoing for many years - Quality: Severe, persistent - Location: Primarily in the back, knees, and feet - Radiation: Pain radiating down both legs (sciatica) - Exacerbating factors: Movement, age - Relieving factors: Limited relief with ibuprofen and meloxicam - Interference: Affects quality of life and daily activities Physical Exam - Musculoskeletal: Pain on lumbar extension and facet loading Pain Management - Affect: Significant impact on mood and psychological wellbeing due to chronic pain and fear of - Analgesia: Currently using ibuprofen and meloxicam with limited relief; pain remains severe - Adverse Effects: Concerns about muscle loss from previous GLP-1 receptor agonist use - Activities of Daily Living: Pain significantly affects daily activities and quality of life - Aberrant Drug Related Behaviors: No evidence of medication misuse or abuse [facility] Medical History (Updated 01/17/24 @ 08:29 by Feliberto Delgadillo MD) Pre-diabetes BRIANA (obstructive sleep apnea) BPH (benign prostatic hyperplasia) Hyperlipidemia Hypertension Surgical History (Updated 12/28/23 @ 10:24 by Leslie Mattson RN) History of orthopedic surgery H/O hernia repair History of knee replacement Social History Are you a primary health care marketing specialist to a significant other at home: No Do you presently have visiting nurse or other home services: No Patient Tobacco Use Status: Never used Tobacco Physical Exam Vital Signs: Last Vital Signs Pulse 83 09/24/24 12:51 Resp 16 09/24/24 12:51 BP 144/70 H 09/24/24 12:51 Pulse Ox 94 09/24/24 12:51 Oxygen Delivery Method Room Air 09/24/24 12:51 BMI result Body Mass Index 23.9 Assessment & Plan Assessment & Plan (1) Lumbar spondylosis: Code(s): M47.816 - Spondylosis without myelopathy or radiculopathy, lumbar region Category: Medical Plan Plan - Consider spinal cord stimulation and ITDD for chronic pain management, with options for temporary or permanent solutions discussed. - Proceed with diagnostic bilateral L3, L4, L5 medial branch blocks for facet-mediated pain, with potential for ablation if effective. He has previously had 1 round of positive diagnostic blocks with >80% relief for the duration of the anesthetic. - Evaluate the use of a pain pump for back pain, noting its limitations for neck pain. - Advise alternating NSAID use, such as ibuprofen and naproxen, while monitoring for gastrointestinal side effects. - Encourage continued physical activity within pain tolerance limits. Patient was informed and verbally consented to the use of an ambient scribe for clinic note documentation during this visit. Discussion Notes During the consultation, I discussed with the patient the potential benefits and risks of spinal cord stimulation for chronic pain management, including the differences between temporary and permanent options. We also reviewed the plan for diagnostic bilateral L3, L4, L5 medial branch blocks to assess facet-mediated pain, with the possibility of proceeding to ablation if the blocks provide relief. The option of a pain pump was considered, with an explanation of its potential benefits for back pain but limitations for neck pain. I advised the patient on the use of NSAIDs, such as ibuprofen and naproxen, emphasizing the importance of monitoring for gastrointestinal side effects and considering alternating use. We discussed the importance of maintaining physical activity as tolerated, to help manage pain and improve quality of life. Patient Instructions - Consider spinal cord stimulation for pain management; discuss options with your doctor. - Follow up with diagnostic injections for back pain and discuss potential ablation with your healthcare provider. - Use NSAIDs like ibuprofen or naproxen as directed, and watch for stomach issues. - Stay active as much as possible without worsening your pain. Medications: New naproxen 375 mg PO BID PRN 30 tabs 0RF pain Coding Level of Care Code Est Pt Level 5 (54909) Diagnoses Lumbar spondylosis M47.816 Time Spent (min) 40
[2024-09-24 12:51] VITALS: BP 144/70; PULSE 83; RESP 16; O2SAT 94; BMI 23.9
--- OUTSIDE RECORDS SUMMARY | 2024-09-24 13:07 | XMS_ITS | Encounter Summary ---
Author Organization [facility] Address [address] [place] [phone] Phone Care Team Providers Care Jet Wiper Name Role Phone Leonel Alegria MD Primary Care Provider Emile Blake MD Unavailable [email or web address] Andrei Coon DO Primary Care Provider [phone] Lupis Copeland MD Primary Care Provider Gordon Moralez MD Primary Care Provider + [phone] Ja Holley MD Primary Care Provider [phone] Frank Mak MD Unavailable [phone] Alfonzo Perkins MD Unavailable Rosalia Vargas RN Unavailable [phone] Jamari Ellison DO Unavailable [phone] Fredi Unger MD Unavailable [phone] Elroy Calderon MD Unavailable [phone] Ja Holley MD Unavailable [phone] Bartolo [place] MD Unavailable [phone] Molly Spring RN Unavailable [phone] Criss Cosme Unavailable [phone] Maximino Dorado MD, PhD Unavailable [phone] Maximino Dorado MD, PhD Unavailable [phone] [place] Thomsno MD Unavailable [phone] Dhaval Slater MD Unavailable Reason for Referral * Physical Therapy (Routine) - Closed Specialty Diagnoses / Procedures Referred By Glory pablo Referred To Contact Physical Therapy Diagnoses Encounter for rehabilitation System, Provider Not In, [facility] [id number] [place] [address] [address] [place] [address] Phone: tel: Referral ID Status Reason Start Date Expiration Date Visits Re quested Visits Authorized [id number] Closed 11/07/2017 02/20/2018 99 99 Encounter Details Date Type Department Care Team (Latest Contact Info) Description 11/07/2017 Transcribe Orders [facility] [address] [place] [address] [place] [address] [email or web address] Encounter for rehabilitation (Primary Dx) Social [...] Care Team (Late st Contact Info) Description 10/03/2024 2:30 PM EDT Office Visit [facility] Orthopedics & Sports Medicine [address] [place] [phone] Jamari Ellison DO [address] [place] [address] Orthopedics & Sports Medicine, [facility]. [place], [place] [phone] 10/31/2024 12:10 PM EDT Office Visit [facility] [address] [place] [address] Fredi Elaine DO [address] [place] [address] 12/27/2024 1:30 PM EST Appointment Department of Radiation Oncology [address] [place] [phone] [place] Burton, MABLE [address] [place] [address] [email or web address] 03/01/2025 10:50 AM EST Office Visit [facility] [address] [place] [address] Fredi Elaine DO [address] [place] [id number] 07/22/2025 9:40 AM EDT Office Visit [facility] [address] [place] [address] 3rd Floor, [address] [place] [address] Asif Araiza MD, MS 22 [facility], [address] [address] [email or web address] Scheduled Referrals Name Type Priority Associated Diagnoses Orde r Schedule Ambulatory referral to [facility] Physical Therapy Outpatient Referral Routine Encounter for [...] documented as of this encounter Care Teams Jet Wiper Relationship Specialty Start Date End Date [place] [address] [email or web address] PCP - General Internal Medicine 05/20/17 01/07/19 Andrei Coon DO [address] [place] [address] [email or web address] PCP - General Family Medicine 01/08/19 01/03/20 Lupis Copeland MD [address] [address] [email or web address] PCP - General Family Medicine 01/04/20 06/09/20 Gordon Moralez MD [address] [place] [id number] [email or web address] PCP - General 06/10/20 07/22/20 Ja Holley MD [address] [place] [address], [address] [place] [address] [email or web address] PCP - General Internal Medicine 07/23/20 Emile Blake MD [address] [place] [address] [email or web address] Gastroenterology 10/31/18 Frank Mak MD [address] [place] [address], [address] [place] [address] [email or web address] Physical Medicine and Rehabilitation 11/14/20 Alfonzo Perkins MD [address] [place] [address]. [address] [address] Psychiatry 02/01/21 10/07/22 Rosalia Vargas RN [address] [place] [address] [facility] [employer] 02/12/21 03/10/21 Jamari Ellison DO [address] [place] [address] Orthopedics & Sports Medicine, [facility] [place] [address] Orthopedic Surgery 07/24/21 Fredi Unger MD [address] [place] [address] Ophthalmology 07/24/21 Elroy Calderon MD [address] [place] [address], [address] [place] [address] Urology 10/27/21 Ja Holley MD [address] [place] [address], [address] [place] [address] Insurance Assigned Provider 05/28/23 Bartolo [place] MD [address] [place] [address] Psychiatry 10/08/22 Molly Spring, KATEY [address] [place] [address] [facility] [employer] 02/07/23 Criss Cosme [address] [place] [address] [email or web address] [facility] Community Health Worker 03/29/23 03/29/23 Maximino Dorado MD, PhD [address] [place] [id number] [email or web address] Radiation Oncology 05/03/23 Maximino Dorado MD, PhD [address] [place] [phone] [email or web address] Radiation Oncology 06/01/23 06/25/23 [place] Thomson MD [address] [place] [address], [address] [place] [address] [email or web address] Physical Medicine and Rehabilitation 06/26/23 Dhaval Slater MD [address] [place] [address] [place] [address] Neurosurgery 07/07/23 documented as of this encounter Additional Source Comments The information contained in this document represents components of the legal health record. It is not the complete legal health record.[facility]
--- OUTSIDE RECORDS SUMMARY | 2024-09-24 13:07 | XMS_ITS | Encounter Summary ---
Author Organization [facility] Address [address] [place] [address] Phone Care Team Providers Care Scale Tank Operator Name Role Phone Ja Holley MD Primary Care Provider Encounter Details Date Type Department Care Team (Late st Contact Info) Description 07/19/2024 Documentation Only [facility], [address] [place] [address] Manuela Torres [address] [place] [address] Social History Tobacco Use Types [...] on filedocumented in this encounter Care Teams Scale Tank Operator Relationship Specialty Start Date End Date Ja Holley MD [address] [place] [address], [address] [place] [address] PCP - General Internal Medicine 02/21/24 documented as of this encounter
== END 2024-09-24 13:48 | disposition home or self-care (01) ==
PROVIDERS: PCP Internal Medicine; Visit Provider Internal Medicine
DX: M47.816 Spondylosis without myelopathy or radiculopathy, lumbar region (principal)
CPT/HCPCS: 99215

== ENCOUNTER → 2024-09-24 12:48 | Outpatient (BNVA) | payer MEDICARE, MEDICAID, SELFPAY | PROVIDERS: PCP Internal Medicine; Visit Provider Internal Medicine | DX: M47.816 Spondylosis without myelopathy or radiculopathy, lumbar region (principal); G89.29 Other chronic pain | CPT/HCPCS: 99212 ==

== ENCOUNTER 2024-11-23 12:09 | Outpatient (AMB) | payer MEDICARE, MEDICAID, SELFPAY ==
--- OUTSIDE RECORDS SUMMARY | 2006-04-20 01:00 | XMS_ITS | Encounter Summary ---
Author Organization [facility] Address [address] [facility] [address] [place] [phone] Phone Care Team Providers Care Certified Residential Medication Aide Name Role Phone Unavailable Primary Care Provider Unavailabl e Encounter Details Date Type Department Care Team (Late st Contact Info) Description 04/20/2006 Hospital Encounter [facility] [address] [place] [address] Reese Villegas PA-C [address] [place] [facility] [place] [address] Social History Tobacco Use Types Packs/Day Years [...] 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 on file disabled Not on file Not on file Not on file documented as of this encounter Functional Status * Calculated C-SSRS Risk Score (Lifetime/Recent) Answer Date of Assessment Author No Risk Indicated 10/08/2023 10:04 PM EDT Antonia Kuhn RN * [place] Suicide Severity Rating Scale (Screener/Recent Self-Report) Question [...] Care Team (Late st Contact Info) Description 12/27/2024 1:30 PM EST Appointment Department of Radiation Oncology [address] [place] [address] Lincoln Burton NP [address] [place] [address] [email or web address] 02/19/2025 3:00 PM EST Office Visit [address] [place] [address] Ja Holley MD [address] [place] [address], [address] [place] [address] 04/30/2025 10:30 AM EDT Office Visit [facility] [address] [place] [address] [place] [address] Fredi Elaine DO [address] [place] [address] 07/22/2025 9:40 AM EDT Office Visit [facility] [address] [place] [address] [address]rd Floor, [address] [place] [address] Asif Araiza MD, MS [address] [place] [address], [address] [address] documented as of this encounter Procedures Procedure Name Priority Date/Time Associated Diagnosis Comments XR LOWER EXTREMITY OUTSIDE (NO INTERPRETATION) Routine 04/20/2006 12:00 AM EST documented in this encounter Results * XR Lower Extremity Outside (No Interpretation) (04/20/2006 12:00 AM EST) Narrative [facility] [place] - 11/22/2019 1:12 PM EDT This study is for PACS storage only and not for interpretation. us Reese Villegas PA-C IMG OUTSIDE IMAGING W/OUT IN TERPRETATION Final Result [facility] [place] [place] documented in this encounter Visit [...] It is not the complete legal health record.[facility]
--- NOTE | 2024-11-23 12:18 | MHC.OFFVIS ---
Vital Signs 11/23/24 12:19 Height 6 ft 1 in Weight 181 lb BMI 23.9 BP 126/86 Blood Pressure Location Lt brachial Position Sitting Respiration 16 Pulse 80 Pulse Source Pulse Oximeter Pulse Oximetry (%) 99 Oxygen Delivery Method Room Air Intake Visit Reasons: PROCEDURE DISCUSSION Fingernail Sculpturer Required: No Allergies No Known Allergies Allergy (Verified 11/23/24 12:20) Medication List - Last Reconciled 11/23/24 by Marilu Rincon LPN amlodipine 5 mg PO BID cholecalciferol (vitamin D3) 50 mcg PO DAILY clonidine HCl 0.2 mg PO BID diazepam (Valium) 0.5 mg PO BID PRN nabumetone 500 mg PO BID olmesartan 40 mg PO DAILY rosuvastatin (Crestor) 40 mg PO DAILY tamsulosin 0.4 mg PO BEDTIME tirzepatide (Mounjaro) mg subcut HPI HPI PROCEDURE DISCUSSION: Details: History of Present Illness The patient is a 74-year-old male presenting with low back pain. The pain is primarily located in the lumbar region and has been persistent, causing significant discomfort, especially when sitting. The patient reports that the pain is throbbing and is exacerbated by sitting, while bending does not significantly increase the pain. The patient has previously undergone medial branch blocks at the L3, L4, and L5 levels, which provided 80% relief during the duration of the anesthetic. The numbing agent used in the past was effective, but the steroid did not provide relief. The patient is physically active, engaging in activities such as rowing and weightlifting, which he believes may be affected by more invasive procedures like spinal stimulators. He expresses concern about the impact of his pain on his ability to maintain his active lifestyle. The patient also reports experiencing sciatica, which is temporarily intense but subsides with movement. He has not had an SI joint injection previously and is considering it as a potential intervention. Pain Description - Onset: Persistent lumbar pain - Quality: Throbbing pain - Location: Lumbar region - Exacerbating factors: Sitting - Relieving factors: Movement for sciatica - Interference: Affects ability to sit comfortably and maintain active lifestyle Pain Management - Affect: Pain impacts ability to maintain active lifestyle - Analgesia: Previous medial branch blocks provided 80% relief; numbing agent effective, steroid not effective - Activities of Daily Living: Pain affects sitting and physical activities like rowing and weightlifting [facility] Medical History (Updated 01/17/24 @ 08:29 by Feliberto Delgadillo MD) Pre-diabetes BRIANA (obstructive sleep apnea) BPH (benign prostatic hyperplasia) Hyperlipidemia Hypertension Surgical History (Updated 12/28/23 @ 10:24 by Leslie Mattson RN) History of orthopedic surgery H/O hernia repair History of knee replacement Social History Are you a primary healthcare consulting manager to a significant other at home: No Do you presently have visiting nurse or other home services: No Patient Tobacco Use Status: Never used Tobacco Physical Exam Vital Signs: Last Vital Signs Pulse 80 11/23/24 12:19 Resp 16 11/23/24 12:19 BP 126/86 11/23/24 12:19 Pulse Ox 99 11/23/24 12:19 Oxygen Delivery Method Room Air 11/23/24 12:19 BMI result Body Mass Index 23.9 Assessment & Plan Assessment & Plan (1) Lumbar spondylosis: Code(s): M47.816 - Spondylosis without myelopathy or radiculopathy, lumbar region Category: Medical Plan Plan Patient was informed and verbally consented to the use of an ambient scribe for clinic note documentation during this visit. 1. Low Back Pain - Plan to proceed with a second round of medial branch blocks at L3, L4, and L5 once insurance approval is obtained. This is the same level he previously had the diagnostic injection at and obtained >80% diagnostic relief. - Consideration of diagnostic SI joint injections if current interventions are not effective. 2. Sciatica - Monitor symptoms and consider further interventions if necessary. Discussion Notes We discussed the potential for a second round of medial branch blocks at the L3, L4, and L5 levels, pending insurance approval. The patient was informed about the possibility of diagnostic SI joint injections if the current interventions do not provide adequate relief. We also reviewed the impact of pain on his active lifestyle and the limitations it imposes. Patient Instructions - Await insurance approval for the second round of medial branch blocks. - Consider SI joint injections if current treatments are ineffective. - Maintain physical activity as tolerated and monitor symptoms. Coding Level of Care Code Est Pt Level 3 (27469) Diagnoses Lumbar spondylosis M47.816
[2024-11-23 12:19] VITALS: BP 126/86; PULSE 80; RESP 16; O2SAT 99; BMI 23.9
--- OUTSIDE RECORDS SUMMARY | 2024-11-23 13:00 | XMS_ITS | Encounter Summary ---
Author Organization [facility] Address [address] [place] [address] Phone Care Team Providers Care Mailroom Manager Name Role Phone Leonel Alegria MD Primary Care Provider [phone] Emile Blake MD Unavailable [phone] Andrei Coon DO Primary Care Provider [phone] Lupis Copeland MD Primary Care Provider Gordon Moralez MD Primary Care Provider Ja Holley MD Primary Care Provider [phone] Frank Mak MD Unavailable [phone] Alfonzo Perkins MD Unavailable [phone] Rosalia Vargas RN Unavailable [phone] Jamari Ellison DO Unavailable [phone] Fredi Unger MD Unavailable [phone] Elroy Calderon MD Unavailable [phone] Ja Holley MD Unavailable [phone] Bartolo Morgan MD Unavailable [phone] Molly Spring RN Unavailable [email or web address] Criss Cosme Unavailable [phone] Maximino Dorado MD, PhD Unavailable [phone] Maximino Dorado MD, PhD Unavailable [phone] Lincoln Thomson MD Unavailable [phone] OhDhaval MD Unavailable Reason for Referral * Physical Therapy (Routine) - Closed Specialty Diagnoses / Procedures Referred By Glory pablo Referred To Contact Physical Therapy Diagnoses Encounter for rehabilitation System, Provider Not In, PhD Partners [facility] 2 [place] [address] [address] Phone: tel: Referral ID Status Reason Start Date Expiration Date Visits Re quested Visits Authorized [id number] Closed 07/14/2017 02/20/2018 99 99 Encounter Details Date Type Department Care Team (Latest Contact Info) Description 07/11/2017 Transcribe Orders [facility] [address] [place] [address] [place] [address] [email or web address] Encounter for rehabilitation (Primary Dx) Social [...] PM EST Appointment Department of Radiation Oncology [address] [place] [address] Lincoln Burton, SPIN INSTRUCTOR [address] [place] [address] [email or web address] 02/19/2025 3:00 PM EST Office Visit [facility] [address] [place] [address] [place] [address] Ja Holley MD 22 [facility], [address] [place] [address] 04/30/2025 10:30 AM EDT Office Visit [facility] [address] [place] [address] [place] [address] Fredi Elaine DO 22 [place] [address] 07/22/2025 9:40 AM EDT Office Visit [facility] [address] [place] [address] 3rd Floor, [address] [place] [address] Asif Araiza MD, MS [address] [place] [address], [address] [place] [address] documented as of this encounter Procedures Procedure Name Priority Date/Time Associated Diagnosis Comments AMB REFERRAL TO [facility] PHYSICAL THERAPY Routine 07/14/2017 1:39 PM EDT Encounter for rehabilitation documented in this encounter Results * Ambulatory referral to [facility] Physical Therapy (07/14/2017 1:39 PM EDT) us Provider Not In System PhD AMB [facility] REFERRALS Fin al Result documented in this encounter Visit Diagnoses Diagnosis Encounter for rehabilitation- Primary documented in this encounter Additional Health Concerns Infection Onset Date Last Indicated Resolved Time CoV-Exposed Comment:Recent close contact documented in the COVID-19 PCR/PRO order 12/04/2020 12/18/2020 12/19/2020 1:25 AM E DT CoV-Risk 01/21/2022 01/21/2022 02/01/2022 1:32 AM EST documented as of this encounter Care Teams Mailroom Manager Relationship Specialty Start Date End [place] [address] [email or web address] PCP - General Internal Medicine 05/20/17 01/07/19 Andrei Coon DO [address] [place] [address] [email or web address] PCP - General Family Medicine 01/08/19 01/03/20 Lupis Copeland MD [address] [place] [address] [email or web address] PCP - General Family Medicine 01/04/20 06/09/20 Gordon Moralez MD [address] [place] [address] Saji [email or web address] g PCP - General 06/10/20 07/22/20 Ja Holley MD [address] [place] [address], [address] [place] [address] [email or web address] PCP - General Internal Medicine 07/23/20 Emile Blake MD [address] [place] [address] [email or web address] Gastroenterology 10/31/18 Frank Mak MD [address] [place] [address], [address] [place] [address] [email or web address] Physical Medicine and Rehabilitation 11/14/20 [place] [address] [email or web address] Psychiatry 02/01/21 10/07/22 Rosalia Vargas RN [address] [place] [address] [email or web address] [facility] Colleter 02/12/21 03/10/21 Jamari Ellison DO [address] [place] [address] Orthopedics & Sports Medicine, [facility] [place] [address] [email or web address] Orthopedic Surgery 07/24/21 Fredi Unger MD [address] [place] [address] Ophthalmology 07/24/21 Elroy Calderon MD [address] [place] [address], [address] [address] [email or web address] Urology 10/27/21 Ja Holley MD [address] [place] [address] [address] [place] [address] [email or web address] Insurance Assigned Provider 05/28/23 Bartolo Morgan MD [address] [place] [address] Psychiatry 10/08/22 Molly Spring RN [address] [place] [address] [email or web address] 02/07/23 10/07/24 Criss Cosme [address] [place] [address] [email or web address] [facility] Community Health Worker 03/29/23 03/29/23 Maximino Dorado MD, PhD [address] [place] [address] [email or web address] Radiation Oncology 05/03/23 Maximino Dorado MD, PhD [address] [place] [address] [email or web address] Radiation Oncology 06/01/23 06/25/23 Lincoln Thomson MD [address] [place] [address], 2nd [place] [address] Physical Medicine and Rehabilitation 06/26/23 Dhavla Slater MD [address] [place] [address] [place] [address] Neurosurgery 07/07/23 documented as of this encounter Additional Source Comments The information contained in this document represents components of the legal health record. It is not the complete legal health record.[facility]
--- OUTSIDE RECORDS SUMMARY | 2024-11-23 13:00 | XMS_ITS | Encounter Summary ---
Author Organization [facility] Address [address] [place] [address] Phone Care Team Providers Care Occupational Health And Safety Officer Name Role Phone Emile Blake MD Unavailable Andrei Coon DO Primary Care Provider Lupis Copeland MD Primary Care Provider Gordon Moralez MD Primary Care Provider [phone] Ja Holley MD Primary Care Provider [phone] Frank Mak MD Unavailable Alfonzo Perkins MD Unavailable [phone] Rosalia Vargas RN Unavailable [phone] Jamari Ellison DO Unavailable Fredi Unger MD Unavailable Elroy Calderon MD Unavailable [phone] Ja Holley MD Unavailable Bartolo Morgan MD Unavailable [phone] Molly Spring RN Unavailable [email or web address] Criss Cosme Unavailable [phone] Maximino Dorado MD, PhD Unavailable [phone] Maximino Dorado MD, PhD Unavailable [phone] Lincoln Thomson MD Unavailable Dhaval Slater MD Unavailable Encounter Details Date Type Department Care Team (Late st Contact Info) Description 03/27/2019 Ancillary Orders Virtual Department [address] [place] [address] Arben Crews MD 100 [facility], [address] [place] [address] [email or web address] Voice hoarsenesses; Dysphagia, unspecified type Social History Tobacco Use Types Packs/Day Years [...] PM EST Appointment Department of Radiation Oncology [address] [place] [address] Lincoln Burton, PLATING AND POINT ASSEMBLY SUPERVISOR [address] [place] [address] [email or web address] 02/19/2025 3:00 PM EST Office Visit [facility] [address] [place] [address] Ja Holley MD 22 [facility], [address] [place] [address] 04/30/2025 10:30 AM EDT Office Visit [facility] [address] [place] [address] [place] [address] Fredi Elaine DO [address] [place] [address] 07/22/2025 9:40 AM EDT Office Visit [facility] [address] [place] [address] 3rd Floor, [address] [place] [address] Asif Araiza MD, MS 22 [facility], [address] [place] [address] [email or web address] documented as of this encounter Visit Diagnoses Diagnosis Voice hoarsenesses Dysphonia Dysphagia, unspecified type documented in this encounter Additional Health Concerns Infection Onset Date Last Indicated Resolved Time CoV-Exposed Comment:Recent close contact documented in the COVID-19 PCR/PRO order 12/04/2020 12/18/2020 12/19/2020 1:25 AM E DT CoV-Risk 01/21/2022 01/21/2022 02/01/2022 1:32 AM EST documented as of this encounter Care Teams Occupational Health And Safety Officer Relationship Specialty Start Date End Date Andrei Coon DO [address] [place] [address] [email or web address] PCP - General Family Medicine 01/08/19 01/03/20 Lupis Copeland MD [address] [place] [address] [email or web address] PCP - General Family Medicine 01/04/20 06/09/20 Gordon Moralez MD [address] [address] Saji [email or web address] PCP - General 06/10/20 07/22/20 Ja Holley MD [address] [place] [address], [address] [place] [address] PCP - General Internal Medicine 07/23/20 Emile Blake MD [address] [place] [address] Gastroenterology 10/31/18 Frank Mak MD [address] [place] [address], [address] [place] [address] [email or web address] Physical Medicine and Rehabilitation 11/14/20 [place] [address] Psychiatry 02/01/21 10/07/22 Rosalia Vargas, KATEY 30 [place] [address] [email or web address] iCMP Ict Programmer 02/12/21 03/10/21 Jamari Ellison DO [address] [place] [address] Orthopedics & Sports Medicine, [place] [address] Orthopedic Surgery 07/24/21 Fredi Unger MD [address] [place] [address] 2 [place] [address] Ophthalmology 07/24/21 Elroy Calderon MD [address] [place] [address], [address] [place] [address] Urology 10/27/21 Ja Holley MD [address] [place] [address] [address] [place] [address] [email or web address] Insurance Assigned Provider 05/28/23 Bartolo Morgan MD [address] [place] [address] Psychiatry 10/08/22 Molly Spring RN [address] [place] [address] [email or web address] Ict Programmer 02/07/23 10/07/24 Criss Cosme [address] [place] [address] [email or web address] Community Health Worker 03/29/23 03/29/23 Maximino Dorado MD, PhD [address] [place] [address] [email or web address]@[email or web address] Radiation Oncology 05/03/23 Maximino Dorado MD, PhD [address] [place] [address] [email or web address] Radiation Oncology 06/01/23 06/25/23 Lincoln Thomson MD [address] [place] [address], 2nd [place] [address] [email or web address] Physical Medicine and Rehabilitation 06/26/23 Dhaval Slater MD [address] [place] [address] Dr CALIX [address] [place] [address] Neurosurgery 07/07/23 documented as of this encounter Additional Source Comments The information contained in this document represents components of the legal health record. It is not the complete legal health record.[facility]
--- OUTSIDE RECORDS SUMMARY | 2024-11-23 13:00 | XMS_ITS | Encounter Summary ---
Author Organization [facility] Address [address] [place] [address] Phone Care Team Providers Care Beehive Kil[employer] Charcoal Burner Name Role Phone Leonel Alegria MD Primary Care Provider [phone] Emile Blake MD Unavailable [phone] Andrei Coon DO Primary Care Provider [phone] Lupis Copeland MD Primary Care Provider Gordon Moralez MD Primary Care Provider Ja Holley MD Primary Care Provider [phone] Frank Mak MD Unavailable [phone] Alfonzo Perkins MD Unavailable [phone] Rosalia Vargas RN Unavailable [phone] Jamari Ellison DO Unavailable [phone] Fredi Unger MD Unavailable [phone] Elroy Calderon MD Unavailable [phone] Ja Holley MD Unavailable [phone] Bartool Morgan MD Unavailable [phone] Molly Spring RN Unavailable [email or web address] Criss Cosme Unavailable [phone] Maximino Dorado MD, PhD Unavailable [phone] Maximino Dorado MD, PhD Unavailable Lincoln Thomson MD Unavailable OhDhaval MD Unavailable Encounter Details Date Type Department Care Team (Late Contact Info) Description 03/23/2018 Transcribe Orders Virtual Department [address] [place] [address] Ernestina Chapman MD [address] [place] [address] [email or web address] Dysphagia, unspecified type (Primary Dx) Social History Tobacco Use Types [...] Department Care Team (Late Contact Info) Description 12/27/2024 1:30 PM EST Appointment Department of Radiation Oncology [address] [place] [address] Lincoln Burton, MACHINE OPERATOR SLITTER TECHNICIAN [address] [place] [address] [email or web address] 02/19/2025 3:00 PM EST Office Visit [facility] [address] [place] [address] Ja Holley MD [address] [place] [address], [address] [place], [place] [phone] 04/30/2025 10:30 AM EDT Office Visit [facility] [address] [place] [address] [place] [address] CheleFredi poole DO 22 [place] [address] 07/22/2025 9:40 AM EDT Office Visit [facility] [address] [place] [address] 3rd Floor, [address] [place] [address] Asif Araiza MD, MS 22 [facility], [address] [place] [address] [email or web address] documented as of this encounter Results * FL (Speech) Video Swallow Study (04/05/2018 10:46 AM EST) Anatomical Region Laterality Modality Radiographic Crystal ging 04/05/2018 11:5 1 AM EST Impressions 04/05/2018 1:19 PM EST 1. No significant swallowing abnormality identified. No aspiration. Please refer to the speech pathologist's full report to follow. FLUOROSCOPY TIME: 1 MIN. 33 SEC; 2823 IMAGES/FRAMES POS [id number] Edited by: Bianka Lockhart on 04/05/2018 12:44 PM Narrative 04/05/2018 1:19 PM EST FL (SPEECH) VIDEO SWALLOW STUDY HISTORY: - DYSPHAGIA [SIGN/SX] hoarseness TECHNIQUE: Modified barium swallow examination was performed, with oral and pharyngeal swallowing function evaluated fluoroscopically with the assistance of a speech pathologist. FINDINGS: The patient was given thin liquid, applesauce, cracker, all mixed with barium. Normal oral and pharyngeal phase with normal swallowing reflex. There is normal epiglottic deflection. There is no significant residue. There is no deep penetration or aspiration. The patient swallowed one time performing chin tuck on his own, at which time there was transient penetration which promptly cleared. On the cripple cutter view there are multilevel endplate changes of degenerative disc disease with disc space narrowing, anterior marginal osteophytes. There is an anterior marginal disc calcification at C4-C5. Procedure Note Mariana Meyer MD - 04/05/2018 FL (SPEECH) VIDEO SWALLOW STUDY HISTORY: - DYSPHAGIA [SIGN/SX] hoarseness TECHNIQUE: Modified barium swallow examination was performed, with oraland pharyngeal swallowing function evaluated fluoroscopically with theassistance of a speech pathologist. FINDINGS: The patient was given thin liquid, applesauce, cracker, all mixed withbarium. Normal oral and pharyngeal phase with normal swallowing reflex. There isnormal epiglottic deflection. There is no significant residue. There is nodeep penetration or aspiration. The patient swallowed one time performing chin tuck on his own, at whichtime there was transient penetration which promptly cleared. On the cripple cutter view there are multilevel endplate changes of degenerativedisc disease with disc space narrowing, anterior marginal osteophytes.There is an anterior marginal disc calcification at C4-C5. IMPRESSION: 1. No significant swallowing abnormality identified. No aspiration. Pleaserefer to the speech pathologist's full report to follow. FLUOROSCOPY TIME: 1 MIN. 33 SEC; 2823 IMAGES/FRAMES POS [email or web address] Edited by: Bianka Lockhart on 04/05/2018 12:44 PM Ernestina Chapman MD IMG FL EXAMS Tasha l Result documented in this encounter Visit Diagnoses Diagnosis Dysphagia, unspecified type- Primary Dysphagia, unspecified type documented in this encounter Additional Health Concerns Infection Onset Date Last Indicated Resolved Time CoV-Exposed Comment:Recent close contact documented in the COVID-19 PCR/PRO order 12/04/2020 12/18/2020 12/19/2020 1:25 AM E DT CoV-Risk 01/21/2022 01/21/2022 02/01/2022 1:32 AM EST documented as of this encounter Care Teams Beehive Kiln Charcoal Burner Relationship Specialty Start Date End [place] [address] [email or web address] PCP - General Internal Medicine 05/20/17 01/07/19 Andrei Coon DO [address] [place] [id number] [email or web address] PCP - General Family Medicine 01/08/19 01/03/20 Lupis Copeland MD [address] [place] [address] [email or web address] PCP - General Family Medicine 01/04/20 06/09/20 Gordon Moralez MD [address] [address] Saji @[email or web address] g PCP - General 06/10/20 07/22/20 Ja Holley MD [address] [place] [address], [address] [place] [address] PCP - General Internal Medicine 07/23/20 Emile Blake MD [address] [address] Gastroenterology 10/31/18 Frank Mak MD [address] [place] [address], [address] [place] [address] [email or web address] Physical Medicine and Rehabilitation 11/14/20 [place] [address] Psychiatry 02/01/21 10/07/22 Rosalia Vargas, KATEY [address] [place] [address] [facility] Installment Agent 02/12/21 03/10/21 Jamari Ellison DO [address] [place] [address] Orthopedics & Sports Medicine, [place] [address] [email or web address] Orthopedic Surgery 07/24/21 Fredi Unger MD [address] [place] [address] [address] [place] [address] Ophthalmology 07/24/21 Elroy Calderon MD [address] [place] [address], [address] [place] [address] [email or web address] Urology 10/27/21 Ja Holley MD [address] [place] [address], [address] [place] [address] [email or web address] Insurance Assigned Provider 05/28/23 Bartolo Morgan MD [address] [place] [address] Psychiatry 10/08/22 Molly Spring RN [address] [place] [address] [email or web address] Installment Agent 02/07/23 10/07/24 Criss Cosme 10 [place] [address] [email or web address] martín [facility] Community Health Worker 03/29/23 03/29/23 Maximino Dorado MD, PhD [address] [place] [address] [email or web address] Radiation Oncology 05/03/23 Maximino Dorado MD, PhD [address] [place] [address] [email or web address] Radiation Oncology 06/01/23 06/25/23 Lincoln Thomson MD [address] [place] [address], 2nd [place] [address] [email or web address] Physical Medicine and Rehabilitation 06/26/23 Dhaval Slater MD [address] [place] [address] [place] [address] Neurosurgery 07/07/23 documented as of this encounter Additional Source Comments The information contained in this document represents components of the legal health record. It is not the complete legal health record.[facility]
--- OUTSIDE RECORDS SUMMARY | 2024-11-23 13:00 | XMS_ITS | Encounter Summary ---
Author Organization [facility] Address [address] [place] [address] Phone Care Team Providers Care Progressive Care Manager Name Role Phone Emile Blake MD Unavailable Ja Holley MD Primary Care Provider [phone] Frank Mak MD Unavailable Alfonzo Perkins MD Unavailable Jamari Ellison DO Unavailable [phone] Fredi Unger MD Unavailable Elroy Calderon MD Unavailable [phone] Ja Holley MD Unavailable [phone] Bartolo Morgan MD Unavailable [phone] Molly Spring RN Unavailable [email or web address] Criss Cosme Unavailable +[phone] Maximino Dorado MD, PhD Unavailable +[phone] Maximino Dorado MD, PhD Unavailable [phone] Lincoln Thomson MD Unavailable [phone] Dhaval Slater MD Unavailable Encounter Details Date Type Department Care Team (Late st Contact Info) Description 03/27/2021 Ancillary Orders [address] [id number] Niya Jaimes MD [address] [place] [address] [facility] [place] [address] [email or web address] Bilateral shoulder pain, unspecified chronicity Social History Tobacco Use Types Packs/Day Years [...] work, study, or receive health care? No 07/23/2020 Education Answer Date Recorded Are you interested in help w ith more adult education (for example, completing high school, GED, job training, learning the Syrian language, technical skills, or developing parenting skills)? I choose not to answer 07/23/2020 Food Answer Date Recorded Within the past 6 months we worried whether our food would run out before we got money to buy more. Sometimes True 021 Within the past 6 months the food we bought just didn't last and we didn't have enough money to get more. Never True 03/2020 Residential Stability Answer Date Recor ded What is your housing situation today? I have bolivardarren toro 07/23/2020 How many times have you move d in the past 12 months? Zero (I did not move) 07/23/2020 06 Are you worried that in t he next 2 months, you may not have your own housing to live in? I choose not to answer 07/24/19 21 Paying for Meds Answer Date Recorded Do you have trouble paying for medicines? No 07/23/2020 Paying Utility Bills Answer Date Record ed Do you have trouble paying your heating or elect ricity bill? No 07/23/2020 Transportation Answer Date Recorded Has the lack of transportati on kept you from medical appointments or from getting medications? No 07/23/2020 Unemployment Answer Date Recorded Are you currently unemployed or working on a part-time or temporary basis, and looking for work? 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 Not on file Not on file disabled Not on file Not on file Not on file documented as of this encounter Plan of Treatment Upcoming Encounters Date Type Department Care Team (Late st Contact Info) Description 12/27/2024 1:30 PM EST Appointment Department of Radiation Oncology [address] [place] [address] Lincoln Burton, MABLE [address] [place], [place] [id number] [place] [address] [email or web address] 02/19/2025 3:00 PM EST Office Visit [address] [place] [address] Ja Holley MD [address] [place] [address], [address] [place] [address] 04/30/2025 10:30 AM EDT Office Visit [facility] [address] [place] [address] [place] [address] Fredi Elaine DO [address] [place] [address] 07/22/2025 9:40 AM EDT Office Visit [facility] [address] [place] [address] 3rd Floor, [address] [place] [address] Asif Araiza MD, MS [address] [place] [address], [address] [address] Pending Results Name Type Priority Associated Diagnoses Date /Time FL Guidance Needle Placement Non-Spine Imaging Routine Bilateral shoulder pain, unspecified chronicity 03/31/2021 9:23 AM EST Scheduled Orders Name Type Priority Associated Diagnoses Orde r Schedule FL Guidance Needle Placement Non-Spine Imaging Routine Bilateral shoulder pain, unspecified chronicity 1 Occurrences starting 03/27/2021 until 06/24/2021 documented as of this encounter Visit Diagnoses Diagnosis Bilateral shoulder pain, unspecified chronicity documented in this encounter Additional Health Concerns Infection Onset Date Last Indicated Resolved Time CoV-Risk 01/21/2022 01/21/2022 02/01/2022 1:32 AM EST Assessment Noted Time PHQ-9 Depression Total Score: 23 021 8:56 AM EDT PHQ-2 Depression Total Score: 6 07/24/19 21 8:56 AM EDT documented as of this encounter Care Teams Progressive Care Manager Relationship Specialty Start Date End Date Ja Holley MD [address] [place] [address], [address] [place] [address] PCP - General Internal Medicine 07/23/20 Emile Blake MD [address] [place] [address] [email or web address] Gastroenterology 10/31/18 Frank Mak MD [address] [place] [address], [address] [place] [address] [email or web address] Physical Medicine and Rehabilitation 11/14/20 [place] [address] Psychiatry 02/01/21 10/07/22 Jamari Ellison DO [address] [place] [address] [facility], [place] [address] Orthopedic Surgery 07/24/21 Fredi Unger MD [address] [place] [address] 2 [place] [address] Ophthalmology 07/24/21 Elroy Calderon MD [address] [place] [address] [address] [place] [address] [email or web address] Urology 10/27/21 Ja Holley MD [address] [place] [address], [address] [place] [address] [email or web address] Insurance Assigned Provider 05/28/23 Bartolo Morgan MD [address] [place] [address] Psychiatry 10/08/22 Molly Spring RN [address] [place] [address] [email or web address] Ortho/[email or web address] Aide 02/07/23 10/07/24 Criss Cosme [address] [place] [address] [email or web address] Community Health Worker 03/29/23 03/29/23 Maximino Dorado MD, PhD [address] [place] [address] [email or web address] Radiation Oncology 05/03/23 Maximino Dorado MD, PhD [address] [place] [address] [email or web address] Radiation Oncology 06/01/23 06/25/23 Lincoln Thomson MD [address] [place] [address], 2nd [place] [address] Physical Medicine and Rehabilitation 06/26/23 Bryon, Dhaval Alvarado MD [address] [place] [address] [place] [address] Neurosurgery 07/07/23 documented as of this encounter Additional Source Comments The information contained in this document represents components of the legal health record. It is not the complete legal health record.[facility]
--- OUTSIDE RECORDS SUMMARY | 2024-11-23 13:00 | XMS_ITS | Encounter Summary ---
Author Organization [facility] Address [address] [place] [address] Phone Care Team Providers Care Jet Dyeing Machine Operator Name Role Phone Emile Blake MD Unavailable Ja Holley MD Primary Care Provider [phone] Frank Mak MD Unavailable Alfonzo Perkins MD Unavailable Jamari Ellison DO Unavailable [phone] Fredi Unger MD Unavailable Elroy Calderon MD Unavailable [phone] Ja Holley MD Unavailable [phone] Bartolo Morgan MD Unavailable [phone] Molly Spring RN Unavailable [email or web address] Criss Cosme Unavailable [phone] Maximino Dorado MD, PhD Unavailable [phone] Maximino Dorado MD, PhD Unavailable [phone] Lincoln Tohmson MD Unavailable [phone] Dhaval Slater MD Unavailable Encounter Details Date Type Department Care Team (Late st Contact Info) Description 03/27/2021 Ancillary Orders [facility] Medicine [address] [place] [address] [phone] Niya Jaimes MD [address] [place] [address] [facility] [address] [email or web address] Social History Tobacco Use Types Packs/Day Years [...] high school, GED, job training, learning the Israeli language, technical skills, or developing parenting skills)? [...] housing situation today? 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 Not on file Not on file Not on file documented as of this encounter Plan of Treatment Upcoming Encounters Date Type Department Care Team ([facility] st Contact Info) Description 12/27/2024 1:30 PM EST Appointment Department of Radiation Oncology [address] [place] [address] Lincoln Burton, MABLE [address] [place], [place] [address] [place] [address] [email or web address] 02/19/2025 3:00 PM EST Office Visit [facility] Medicine [address] [place] [address] [place] [address] Ja Holley MD [address] [place] [address], [address] [place] [address] 04/30/2025 10:30 AM EDT Office Visit [facility] [address] [place] [address] Fredi Elaine DO 22 [place] [address] 07/22/2025 9:40 AM EDT Office Visit [facility] [address] [place] [address] 3rd Floor, [address] [place] [address] Asif Araiza MD, MS 22 [facility], [address] [place] [address] documented as of this encounter Visit Diagnoses Not on filedocumented in this encounter Additional Health Concerns Infection Onset Date Last Indicated Resolved Time CoV-Risk 01/21/2022 01/21/2022 02/01/2022 1:32 AM EST Assessment Noted Time PHQ-9 Depression Total Score: 23 021 8:56 AM EDT PHQ-2 Depression Total Score: 6 07/24/19 21 8:56 AM EDT documented as of this encounter Care Teams Jet Dyeing Machine Operator Relationship Specialty Start Date End Date Ja Holley MD [address] [place] [address], [address] [place] [address] PCP - General Internal Medicine 07/23/20 Emile Blake MD [address] [place] [address] Gastroenterology 10/31/18 Frank Mak MD [address] [place] [address], [address] [place] [address] [email or web address] Physical Medicine and Rehabilitation 11/14/20 [place] [address] Psychiatry 02/01/21 10/07/22 Jamari Ellison DO [address] [place] [address] [facility], [place] [address] Orthopedic Surgery 07/24/21 Fredi Unger MD [address] [place] [address] Ophthalmology 07/24/21 Elroy Calderon MD [address] [place] [address], [address] [place] [address] Urology 10/27/21 Ja Holley MD [address] [place] [address], [address] [place] [address] [email or web address] Insurance Assigned Provider 05/28/23 Bartolo Morgan MD [address] [place] [address] Psychiatry 10/08/22 Molly Spring RN [address] [place] [address] [email or web address] [place] 02/07/23 10/07/24 Criss Cosme [address] [place] [address] [email or web address] [facility] Community Health Worker 03/29/23 03/29/23 Maximino Dorado MD, PhD [address] [place] [address] [email or web address] Radiation Oncology 05/03/23 Maximino Dorado MD, PhD [address] [place] [address] [email or web address] Radiation Oncology 06/01/23 06/25/23 Lincoln Thomson MD [address] [place] [address], 2nd [place] [address] [email or web address] Physical Medicine and Rehabilitation 06/26/23 Dhaval Slater MD [address] [place] [address] Dr CALIX [address] [place] [address] Neurosurgery 07/07/23 documented as of this encounter Additional Source Comments The information contained in this document represents components of the legal health record. It is not the complete legal health record.[facility]
--- OUTSIDE RECORDS SUMMARY | 2024-11-23 13:00 | XMS_ITS | Encounter Summary ---
Author Organization [facility] Address [address] [place] [address] Phone Care Team Providers Care Patient Office Rep Name Role Phone Leonel Alegria MD Primary Care Provider [phone] Emile Blake MD Unavailable [phone] Andrei Coon DO Primary Care Provider [phone] Lupis Copeland MD Primary Care Provider Gordon Moralez MD Primary Care Provider Ja Holley MD Primary Care Provider [phone] Frank Mak MD Unavailable [phone] Alfonzo Perkins MD Unavailable [phone] Rosalia Vargas RN Unavailable [phone] Jamari Ellison DO Unavailable [phone] Fredi Unger MD Unavailable [phone] Elroy Calderon MD Unavailable [phone] Ja Holley MD Unavailable [phone] Bartolo Morgan MD Unavailable [phone] Molly Spring RN Unavailable [email or web address] Criss Cosme Unavailable Maximino Dorado MD, PhD Unavailable [phone] Maximino Dorado MD, PhD Unavailable [phone] Lincoln Thomson MD Unavailable [phone] OhDhaval MD Unavailable Encounter Details Date Type Department Care Team (Late Contact Info) Description 05/23/2018 Procedure Pass [facility] Endoscopy Admitting Dept Virtual Department [address] [place] [address] Social History Tobacco Use Types Packs/Day Years [...] PM EST Appointment Department of Radiation Oncology [address] [place] [address] Lincoln Burton, SHOT BAGGER [address] [place] [address] [email or web address] 02/19/2025 3:00 PM EST Office Visit [facility] Medicine [address] [place] [address] [place] [address] Ja Holley MD [address] [place] [address], [address] [place] [address] 04/30/2025 10:30 AM EDT Office Visit [facility] [address] [place] [address] [place] [address] Fredi Elaine DO [address] [place] [address] 07/22/2025 9:40 AM EDT Office Visit [facility] [address] [facility] 3rd Floor, [address] [place] [address] Asif Araiza MD, MS 22 [facility], [address] [place] [address] [email or web address] documented as of this encounter Visit Diagnoses Not on filedocumented in this encounter Additional Health Concerns Infection Onset Date Last Indicated Resolved Time CoV-Exposed Comment:Recent close contact documented in the COVID-19 PCR/PRO order 12/04/2020 12/18/2020 12/19/2020 1:25 AM E DT CoV-Risk 01/21/2022 01/21/2022 02/01/2022 1:32 AM EST documented as of this encounter Care Teams Patient Office Rep Relationship Specialty Start Date End [place] [address] [email or web address] PCP - General Internal Medicine 05/20/17 01/07/19 Andrei Coon DO [address] [place] [address] [email or web address] PCP - General Family Medicine 01/08/19 01/03/20 Lupis Copeland MD [address] [place] [address] [email or web address] PCP - General Family Medicine 01/04/20 06/09/20 Gordon Moralez MD [address] [place] [address] Saji [email or web address] PCP - General 06/10/20 07/22/20 Ja Hollye MD [address] [place] [address], [address] [place] [address] PCP - General Internal Medicine 07/23/20 Emile Blake MD [address] [place] [address] Gastroenterology 10/31/18 Frank Mak MD [address] [place] [address], [address] [place] [address] [email or web address] Physical Medicine and Rehabilitation 11/14/20 [place] [address] Psychiatry 02/01/21 10/07/22 Rosalia Vargas, RN [address] [place] [address] [email or web address] Offshore Diver 02/12/21 03/10/21 Jamari Ellison DO [address] [place] [address] Orthopedics & Sports Medicine, [facility] [place] [address] Orthopedic Surgery 07/24/21 Fredi Unger MD [address] [place] [address] Ophthalmology 07/24/21 Elroy Calderon MD [address] [place] [address], [address] [place] [address] Urology 10/27/21 Ja Holley MD [address] [place] [address], [address] [place] [address] [email or web address] Insurance Assigned Provider 05/28/23 Bartolo Morgan MD [address] [place] [address] Psychiatry 10/08/22 Molly Spring RN [address] [place] [address] [email or web address] 02/07/23 10/07/24 Criss Cosme [address] [place] [address] [email or web address] [facility] Community Health Worker 03/29/23 03/29/23 Maximino Dorado MD, PhD [address] [place] [address] [email or web address] Radiation Oncology 05/03/23 Maximino Dorado MD, PhD [address] [place] [address] [email or web address] Radiation Oncology 06/01/23 06/25/23 Lincoln Thomson MD [address] [place] [address], 2nd [place] [address] [email or web address] Physical Medicine and Rehabilitation 06/26/23 Dhaval Slater MD [address] [place] [address] [place] [address] Neurosurgery 07/07/23 documented as of this encounter Additional Source Comments The information contained in this document represents components of the legal health record. It is not the complete legal health record.[facility]
--- OUTSIDE RECORDS SUMMARY | 2024-11-23 13:00 | XMS_ITS | Encounter Summary ---
Author Organization [facility] Address [address] [place] [address] Phone Care Team Providers Care Ebay Reseller Name Role Phone Emile Blake MD Unavailable Andrei Coon DO Primary Care Provider Lupis Copeland MD Primary Care Provider Gordon Moralez MD Primary Care Provider [phone] Ja Holley MD Primary Care Provider [phone] Frank Mak MD Unavailable Alfonzo Perkins MD Unavailable Rosalia Vargas RN Unavailable [phone] Jamari Ellison DO Unavailable Fredi Unger MD Unavailable Elroy Calderon MD Unavailable [phone] Ja Holley MD Unavailable Bartolo Morgan MD Unavailable [phone] Molly Spring RN Unavailable [email or web address] Criss Cosme Unavailable [phone] Maximino Dorado MD, PhD Unavailable [phone] Maximino Dorado MD, PhD Unavailable [phone] Lincoln Thomson MD Unavailable Dhaval Slater MD Unavailable Reason for Referral * MRI/CAT Scan - Closed Specialty Diagnoses / Procedures Referred By Glory pablo Referred To Contact Radiology Diagnoses Voice hoarsenesses Dysphagia, unspecified type GERD without esophagitis Postnasal drip Vasomotor rhinitis Feeling of foreign body in throat Obstructive sleep apnea (adult) (pediatric) Procedures CT Neck CT Neck Arben Crews MD Phone: tel: fax: [email or web address] Referral ID Status Reason Start Date Expiration Date Visits Re quested Visits Authorized [id number] Closed 03/27/2019 03/26/2020 1 1 Encounter Details Date Type Department Care Team (Late Contact Info) Description 03/27/2019 Ancillary Orders Virtual Department [address] [place] [address] Arben Crews MD [address] [place] [address], [address] [place] [address] [email or web address] Voice hoarsenesses; Dysphagia, unspecified type; GERD without esophagitis; Postnasal drip; Vasomotor rhinitis; Feeling of foreign body in throat; Obstructive sleep apnea (adult) (pediatric) Social History Tobacco Use Types Packs/Day Years [...] PM EST Appointment Department of Radiation Oncology [address] [place] [address] Lincoln Burton, MABLE 75 [facility] ASB1-L2 [place] [address] [email or web address] 02/19/2025 3:00 PM EST Office Visit [address] [place] [address] Ja Holley MD [address] [place] [address], [address] [place] [address] 04/30/2025 10:30 AM EDT Office Visit [facility] [address] [place] [address] [place] [address] Fredi Elaine DO [address] [place] [address] 07/22/2025 9:40 AM EDT Office Visit [facility] [address] [place] [address] [address]rd Floor, [address] [place] [address] Asif Araiza MD, MS 22 [facility], [address] [place] [address] documented as of this encounter Results * CT NECK SOFT TISSUE WITH CONTRAST (03/29/2019 8:42 AM EST) Anatomical Region Laterality Modality Neck Computed Tomogra phy 03/29/2019 9:13 AM EST Impressions 03/29/2019 9:28 AM EST 1. No evidence of cervical masses or measurable lymphadenopathy. No explanation for dysphagia. Clinical follow-up recommended. 2. 2 mm calculus in the inferior medial aspect of the left parotid gland, possibly a calculus. TOTAL CTDIvol: 10.50 mGy POS - [id number] Narrative 03/29/2019 9:28 AM EST HISTORY: Dysphagia, voice changes. COMPARISON: None. TECHNIQUE: After the administration of intravenous contrast, scanning obtained from skull base to thoracic inlet. Sagittal and coronal reformats generated. Automated exposure control utilized. FINDINGS: No evidence of cervical mass or measurable lymphadenopathy. Parapharyngeal soft tissues are within normal limits. Prevertebral soft tissues and epiglottis appear normal. Soft tissues in the region of the glottis and subglottic soft tissues appear normal. 2 mm calcification within the inferior medial aspect of the left parotid gland. Parotid glands otherwise appear normal. Submandibular glands appear normal. 5 mm well-circumscribed hypodense nodule in the right thyroid lobe, potentially a cyst. Thyroid normal in size. Lung apices are clear. Mild-moderate mucosal thickening in the right maxillary sinus. More mild mucosal thickening in the left maxillary sinus. Degenerative disc and endplate changes at multiple levels in the cervical spine, severe at C6-C7. Procedure Note Emile Christianson MD - 03/29/2019 HISTORY: Dysphagia, voice changes. COMPARISON: None. TECHNIQUE: After the administration of intravenous contrast, scanningobtained from skull base to thoracic inlet. Sagittal and coronalreformats generated. Automated exposure control utilized. FINDINGS: No evidence of cervical mass or measurable lymphadenopathy. Parapharyngeal soft tissues are within normal limits. Prevertebral softtissues and epiglottis appear normal. Soft tissues in the region of theglottis and subglottic soft tissues appear normal. 2 mm calcification within the inferior medial aspect of the left parotidgland. Parotid glands otherwise appear normal. Submandibular glands appearnormal. 5 mm well-circumscribed hypodense nodule in the right thyroidlobe, potentially a cyst. Thyroid normal in size. Lung apices are clear. Mild-moderate mucosal thickening in the right maxillary sinus. More mildmucosal thickening in the left maxillary sinus. Degenerative disc and endplate changes at multiple levels in the cervicalspine, severe at C6-C7. IMPRESSION: 1. No evidence of cervical masses or measurable lymphadenopathy. Noexplanation for dysphagia. Clinical follow-up recommended. 2. 2 mm calculus in the inferior medial aspect of the left parotid gland,possibly a calculus. TOTAL CTDIvol: 10.50 mGy POS - [id number] Arben Crews MD IMG CT XSPECIALTY ORDERA BLES Final Result documented in this encounter Visit Diagnoses Diagnosis Voice hoarsenesses Dysphonia Dysphagia, unspecified type GERD without esophagitis Esophageal reflux Postnasal drip Vasomotor rhinitis Allergic rhinitis, cause unspecified Feeling of foreign body in throat Other symptoms involving head and neck Obstructive sleep apnea (adult) (pediatric) Voice hoarsenesses Dysphonia Dysphagia, unspecified type GERD without esophagitis Esophageal reflux Postnasal drip Vasomotor rhinitis Allergic rhinitis, cause unspecified Feeling of foreign body in throat Other symptoms involving head and neck Obstructive sleep apnea (adult) (pediatric) documented in this encounter Additional Health Concerns Infection Onset Date Last Indicated Resolved Time CoV-Exposed Comment:Recent close contact documented in the COVID-19 PCR/PRO order 12/04/2020 12/18/2020 12/19/2020 1:25 AM E DT CoV-Risk 01/21/2022 01/21/2022 02/01/2022 1:32 AM EST documented as of this encounter Care Teams Ebay Reseller Relationship Specialty Start Date End Date Andrei Coon DO [address] [place] [address] [email or web address] PCP - General Family Medicine 01/08/19 01/03/20 Lupis Copeland MD [address] [place] [address] [email or web address] PCP - General Family Medicine 01/04/20 06/09/20 Gordon Moralez MD [address] [place] [address] Saji [email or web address] PCP - General 06/10/20 07/22/20 Ja Holley MD [address] [place] [address] [address] [place] [address] PCP - General Internal Medicine 07/23/20 Emile Blake MD [address] [place] [address] Gastroenterology 10/31/18 Frank Mak MD [address] [place] [address], [address] [place] [address] [email or web address] Physical Medicine and Rehabilitation 11/14/20 [place] [address] Psychiatry 02/01/21 10/07/22 Rosalia Vargas, KATEY [address] [place] [address] [email or web address] Environmental Education Specialist 02/12/21 03/10/21 Jamari Ellison DO [address] [place] [address] Orthopedics & Sports Medicine, [facility] [place] [address] Orthopedic Surgery 07/24/21 Fredi Unger MD [address] [place] [address] Ophthalmology 07/24/21 Elroy Calderon MD [address] [place] [address], [address] [place] [address] Urology 10/27/21 Ja Holley MD [address] [place] [address], [address] [place] [address] [email or web address] Insurance Assigned Provider 05/28/23 Bartolo Morgan MD [address] [place] [address] Psychiatry 10/08/22 Molly Spring RN [address] [place] [address] [email or web address] Environmental Education Specialist 02/07/23 10/07/24 Criss Cosme [address] [place] [address] [email or web address] Community Health Worker 03/29/23 03/29/23 Maximino Dorado MD, PhD [address] [place] [address] [email or web address] Radiation Oncology 05/03/23 Maximino Dorado MD, PhD [address] [place] [address] [email or web address] Radiation Oncology 06/01/23 06/25/23 Lincoln Thomson MD [address] [place] [address], 2[address] [place] [address] [email or web address] Physical Medicine and Rehabilitation 06/26/23 Dhaval Slater MD [address] [place] [address] Neurosurgery 07/07/23 documented as of this encounter Additional Source Comments The information contained in this document represents components of the legal health record. It is not the complete legal health record.[facility]
--- OUTSIDE RECORDS SUMMARY | 2024-11-23 13:00 | XMS_ITS | Encounter Summary ---
Author Organization [facility] Address [address] [place] [address] Phone Care Team Providers Care Skidder Loader Name Role Phone Leonel Alegria MD Primary Care Provider [phone] Emile Blake MD Unavailable [phone] Andrei Coon DO Primary Care Provider [phone] Lupis Copeland MD Primary Care Provider Gordon Moralez MD Primary Care Provider Ja Holley MD Primary Care Provider [phone] Frank Mak MD Unavailable [phone] Alfonzo Perkins MD Unavailable [phone] Rosalia Vargas RN Unavailable [phone] Jamari Ellison DO Unavailable [phone] Fredi Unger MD Unavailable [phone] Elroy Calderon MD Unavailable [phone] Ja Holley MD Unavailable [phone] Bartolo Morgan MD Unavailable [phone] Molly Spring RN Unavailable [email or web address] Criss Cosme Unavailable [phone] Maximino Dorado MD, PhD Unavailable [phone] Maximino Dorado MD, PhD Unavailable [phone] Lincoln Thomson MD Unavailable Dhaval Slater MD Unavailable Reason for Referral * Physical Therapy (Routine) - Closed Specialty Diagnoses / Procedures Referred By Glory pablo Referred To Contact Physical Therapy Diagnoses Encounter for rehabilitation System, Provider Not In, PhD [facility] [address] [place] [address] [address] Phone: tel: Referral ID Status Reason Start Date Expiration Date Visits Re quested Visits Authorized [id number] Closed 11/07/2017 02/20/2018 99 99 Encounter Details Date Type Department Care Team (Latest Contact Info) Description 11/07/2017 Transcribe Orders [facility] [address] [place] [address] [place] [address] [email or web address] Encounter for rehabilitation (Primary Dx) [...] PM EST Appointment Department of Radiation Oncology [address] [place] [address] Lincoln Burton, CONFERENCE SERVICES COORDINATOR [address] [place] [address] [email or web address] 02/19/2025 3:00 PM EST Office Visit [facility] [address] [place] [address] Ja Holley MD 22 [facility], [address] [place] [address] 04/30/2025 10:30 AM EDT Office Visit [facility] [address] [place] [address] Fredi Elaine DO [address] [place] [address] 07/22/2025 9:40 AM EDT Office Visit [facility] [address] [place] [address] 3rd Floor, [address] [place] [address] Asif Araiza MD, MS [address] [place] [address], [address] [place] [address] Scheduled Referrals Name Type Priority Associated Diagnoses Orde r Schedule Ambulatory referral to [facility] Physical Therapy Outpatient Referral Routine Encounter for [...] documented as of this encounter Care Teams Skidder Loader Relationship Specialty Start Date End Date [place] [address] PCP - General Internal Medicine 05/20/17 01/07/19 Andrei Coon DO [address] [place] [address] [email or web address] PCP - General Family Medicine 01/08/19 01/03/20 Lupis Copeland MD [address] [place] [address] [email or web address] PCP - General Family Medicine 01/04/20 06/09/20 Gordon Moralez MD [address] [place] [address] Saji [email or web address] PCP - General 06/10/20 07/22/20 Ja Holley MD [address] [place] [address], [address] [place] [address] PCP - General Internal Medicine 07/23/20 Emile Blake MD [address] [place] [address] [email or web address] Gastroenterology 10/31/18 Frank Mak MD [address] [place] [address], [address] [place] [address] [email or web address] Physical Medicine and Rehabilitation 11/14/20 [place] [address] Psychiatry 02/01/21 10/07/22 Rosalia Vargas, KATEY [address] [place] [address] [email or web address] Field Health Officer 02/12/21 03/10/21 Jamari Ellison DO [address] [place] [address] [facility] [place] [address] [email or web address] Orthopedic Surgery 07/24/21 Fredi Unger MD [address] [place] [address] Ophthalmology 07/24/21 Elroy Calderon MD [address] [place] [address], [address] [place] [address] [email or web address] Urology 10/27/21 Ja Holley MD [address] [place] [address], [address] [place] [address] [email or web address] Insurance Assigned Provider 05/28/23 Bartolo Morgan MD [address] [place] [address] Psychiatry 10/08/22 Molly Spring RN [address] [place] [address] [email or web address] Field Health Officer 02/07/23 10/07/24 Criss Cosme [address] [place] [address] [email or web address] Community Health Worker 03/29/23 03/29/23 Maximino Dorado MD, PhD [address] [place] [address] [email or web address] Radiation Oncology 05/03/23 Maximino Dorado MD, PhD [address] [place] [address] [email or web address] Radiation Oncology 06/01/23 06/25/23 Lincoln Thomson MD [address] [place] [address], 2[address] [place] [address] [email or web address] Physical Medicine and Rehabilitation 06/26/23 Dhaval Slater MD [address] [place] [address] [place] [address] Neurosurgery 07/07/23 documented as of this encounter Additional Source Comments The information contained in this document represents components of the legal health record. It is not the complete legal health record.[facility]
--- OUTSIDE RECORDS SUMMARY | 2024-11-23 13:03 | XMS_ITS | Encounter Summary ---
Author Organization [facility] Address [address] [place] [address] Phone Care Team Providers Care Application Software Engineer Name Role Phone Emile Blake MD Unavailable [phone] Andrei Coon DO Primary Care Provider Lupis Copeland MD Primary Care Provider Gordon Moralez MD Primary Care Provider [phone] Ja Holley MD Primary Care Provider [phone] Frank Mak MD Unavailable Alfonzo Perkins MD Unavailable [phone] Rosalia Vargas RN Unavailable [phone] Jamari Ellison DO Unavailable Fredi Unger MD Unavailable Elroy Calderon MD Unavailable [phone] Ja Holley MD Unavailable Bartolo Morgan MD Unavailable [phone] Molly Spring RN Unavailable [email or web address] Criss Cosme Unavailable [phone] Maximino Dorado MD, PhD Unavailable [phone] Maximino Dorado MD, PhD Unavailable [phone] Lincoln Thomson MD Unavailable Bryon Dhavalmumtaz Alvarado MD Unavailable Reason for Referral * MRI/CAT Scan - Closed Specialty Diagnoses / Procedures Referred By Glory pablo Referred To Contact Radiology Diagnoses Cervical disc disorder with radiculopathy, unspecified cervical region Procedures MRI Cervical Spine Compa Monsalve MD Phone: tel: fax: Referral ID Status Reason Start Date Expiration Date Visits Re quested Visits Authorized [id number] Closed 03/13/2019 03/12/2020 1 1 Encounter Details Date Type Department Care Team (Late Contact Info) Description 03/13/2019 Ancillary Orders Virtual Department [address] [place] [address] Compa Monsalve MD [address] [facility] 3 [place] [address] Cervical disc disorder with radiculopathy, unspecified cervical region Social History Tobacco Use Types Packs/Day Years [...] PM EST Appointment Department of Radiation Oncology [address] [place] [address] Lincoln Burton, MINE MOTOR OPERATOR [address] [place] [address] [email or web address] 02/19/2025 3:00 PM EST [facility] [address] [place] [address] Ja Holley MD 22 [facility], [address] [place] [address] 04/30/2025 10:30 AM EDT Office Visit [facility] [address] [place] [address] Fredi Elaine, DO 22 [place] [address] 07/22/2025 9:40 AM EDT Office Visit [facility] 22 [facility] 3rd Floor, [address] [place] [address] Asif Araiza MD, MS 22 [facility], [address] [place] [address] [email or web address] documented as of this encounter Results * MRI CERVICAL SPINE (NEURO) FOCUS WITHOUT CONTRAST (03/20/2019 7:55 AM EST) Anatomical Region Laterality Modality C-spine Magnetic Resonan ce 03/20/2019 10:1 2 AM EST Impressions 03/20/2019 10:18 AM EST Multilevel degenerative changes of the cervical spine with central canal and foraminal stenoses as described above. Borderline left-sided cord compression at C5-C6. No cord signal abnormality. The findings can be correlated with the patient's symptoms and neurological exam. POS - [id number] Narrative 03/20/2019 10:18 AM EST MRI CERVICAL SPINE (NEURO) FOCUS WITHOUT CONTRAST w/o contrast Cervical disc disorder with radiculopathy, unspecified cervical region TECHNIQUE: MRI of the cervical spine was performed without intravenous contrast utilizing sagittal T1, sagittal T2, sagittal STIR, axial gradient echo, and axial T2-weighted sequences. COMPARISON: None FINDINGS: ALIGNMENT, VERTEBRAE, MARROW, AND DISCS: Mild reversal of the cervical lordosis. Animal retrolisthesis of C4 on C5, C5 on C6, and C6 on C7. Subtle degenerative anterolisthesis of C7 on T1. The cervical vertebral bodies are normal in height. Marginal spurring and facet arthroses are present at multiple levels. Moderate- severe loss of height of C4-C5, C5-C6, and C6-C7. 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 No cervical cord signal abnormality. PARASPINAL TISSUES: The paraspinal soft tissues and visualized vertebral artery flow voids are unremarkable. DETAILED FINDINGS BY LEVEL: C2-C3: Left facet arthrosis. No central canal or significant foraminal narrowing. C3-C4: Right facet arthrosis. No central canal or foraminal stenosis. C4-C5: Concentric disc-osteophyte complex with minimal indentation of the ventral thecal sac. Moderate-severe right and severe left foraminal stenosis. C5-C6: Concentric disc-osteophyte complex. Moderate central canal narrowing and borderline left-sided cord compression. Severe bilateral foraminal stenosis. C6-C7: Concentric disc-osteophyte complex with mild-moderate central canal stenosis. Severe bilateral foraminal stenosis. C7-T1: Mild facet arthrosis. No central canal stenosis. No significant foraminal narrowing. Procedure Note Luis Carlin MD - 03/20/2019 MRI CERVICAL SPINE (NEURO) FOCUS WITHOUT CONTRAST w/o contrast Cervical disc disorder with radiculopathy, unspecifiedcervical region TECHNIQUE: MRI of the cervical spine was performed without intravenouscontrast utilizing sagittal T1, sagittal T2, sagittal STIR, axial gradientecho, and axial T2-weighted sequences. COMPARISON: None FINDINGS: ALIGNMENT, VERTEBRAE, MARROW, AND DISCS: Mild reversal of the cervicallordosis. Animal retrolisthesis of C4 on C5, C5 on C6, and C6 on C7.Subtle degenerative anterolisthesis of C7 on T1. The cervical vertebralbodies are normal in height. Marginal spurring and facet arthroses arepresent at multiple levels. Moderate- severe loss of height of C4-C5,C5-C6, and C6-C7. 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 Nocervical cord signal abnormality. PARASPINAL TISSUES: The paraspinal soft tissues and visualized vertebralartery flow voids are unremarkable. DETAILED FINDINGS BY LEVEL: C2-C3: Left facet arthrosis. No central canal or significant foraminalnarrowing. C3-C4: Right facet arthrosis. No central canal or foraminal stenosis. C4-C5: Concentric disc-osteophyte complex with minimal indentation of theventral thecal sac. Moderate-severe right and severe left foraminalstenosis. C5-C6: Concentric disc-osteophyte complex. Moderate central canalnarrowing and borderline left-sided cord compression. Severe bilateralforaminal stenosis. C6-C7: Concentric disc-osteophyte complex with mild-moderate central canalstenosis. Severe bilateral foraminal stenosis. C7-T1: Mild facet arthrosis. No central canal stenosis. No significantforaminal narrowing. IMPRESSION: Multilevel degenerative changes of the cervical spine with central canaland foraminal stenoses as described above. Borderline left-sided cordcompression at C5-C6. No cord signal abnormality. The findings can becorrelated with the patient's symptoms and neurological exam. POS - [id number] Compa Monsalve MD IMG MR XSPECIALTY Fin al Result documented in this encounter Visit Diagnoses Diagnosis Cervical disc disorder with radiculopathy, unspecified cervical region Cervical disc disorder with radiculopathy, unspecified cervical region documented in this encounter Additional Health Concerns Infection Onset Date Last Indicated Resolved Time CoV-Exposed Comment:Recent close contact documented in the COVID-19 PCR/PRO order 12/04/2020 12/18/2020 12/19/2020 1:25 AM E DT CoV-Risk 01/21/2022 01/21/2022 02/01/2022 1:32 AM EST documented as of this encounter Care Teams Application Software Engineer Relationship Specialty Start Date End Date Andrei Coon DO [address] [place] [address] [email or web address] PCP - General Family Medicine 01/08/19 01/03/20 Lupis Copeland MD [address] [place] [address] [email or web address] PCP - General Family Medicine 01/04/20 06/09/20 Gordon Moralez MD [address] [address] Saji [email or web address] PCP - General 06/10/20 07/22/20 Ja Holley MD [address] [place] [address], [address] [place] [address] PCP - General Internal Medicine 07/23/20 Emile Blake MD [address] [place] [address] Gastroenterology 10/31/18 Frank Mak MD [address] [place] [address], [address] [place] [address] [email or web address] Physical Medicine and Rehabilitation 11/14/20 [place] [address] Psychiatry 02/01/21 10/07/22 Rosalia Vargas RN 30 [place] [address] [email or web address] Airplane Dispatcher 02/12/21 03/10/21 Jamari Ellison DO [address] [place] [address] Orthopedics & Sports Medicine, [facility] [place] [address] [email or web address] Orthopedic Surgery 07/24/21 Fredi Unger MD [address] [place] [address] 2 [place] [address] Ophthalmology 07/24/21 Elroy Calderon MD [address] [place] [address], [address] [place] [address] [email or web address] Urology 10/27/21 Ja Holley MD [address] [place] [address], [address] [place] [address] [email or web address] Insurance Assigned Provider 05/28/23 Bartolo Morgan MD [address] [place] [address] Psychiatry 10/08/22 Molly Spring RN [address] [place] [address] [email or web address] Dispatcher 02/07/23 10/07/24 Criss Cosme [address] [place] [address] [email or web address] [facility] Community Health Worker 03/29/23 03/29/23 Maximino Dorado MD, PhD [address] [place] [address] [email or web address] Radiation Oncology 05/03/23 Maximino Dorado MD, PhD [address] [place] [address] [email or web address] Radiation Oncology 06/01/23 06/25/23 Lincoln Thomson MD [address] [place] [address], 2nd [place] [address] [email or web address] Physical Medicine and Rehabilitation 06/26/23 Dhaval Slater MD [address] [place] [address] [place] [address] Neurosurgery 07/07/23 documented as of this encounter Additional Source Comments The information contained in this document represents components of the legal health record. It is not the complete legal health record.[facility]
--- OUTSIDE RECORDS SUMMARY | 2024-11-23 13:03 | XMS_ITS | Encounter Summary ---
Author Organization [facility] Address [address] [place] [address] Phone Care Team Providers Care Commercial Litigation Associate Name Role Phone Emile Blake MD Unavailable [phone] Lupis Copeland MD Primary Care Provider Gordon Moralez MD Primary Care Provider [phone] Ja Holley MD Primary Care Provider [phone] Frank Mak MD Unavailable [phone] Alfonzo Perkins MD Unavailable Rosalia Vargas RN Unavailable [phone] Jamari Ellison DO Unavailable [phone] Fredi Unger MD Unavailable Elroy Calderon MD Unavailable [phone] Ja Holley MD Unavailable [phone] Bartolo Morgan MD Unavailable [phone] Molly Spring RN Unavailable [email or web address] Criss Cosme Unavailable Maximino Dorado MD, PhD Unavailable [phone] Maximino Dorado MD, PhD Unavailable [phone] Lincoln Thomson MD Unavailable [phone] Dhaval Slater MD Unavailable Encounter Details Date Type Department Care Team (Late st Contact Info) Description 01/09/2020 Telephone [facility] Department of Orthopaedic Surgery, Foot & Ankle Service [address] [facility], 3rd Floor, [address] [place] [address] Joel Cardona MD 55 [facility] [address] [place] [address] [email or web address] Social History Tobacco Use Types Packs/Day Years [...] PM EST Appointment Department of Radiation Oncology [address] [place] [address] Lincoln Burton, MABLE [address] [place] [address] [email or web address] 02/19/2025 3:00 PM EST [facility] Medicine [address] [place] [address] [place] [address] Ja Holley MD 22 [facility], [address] [place] [address] 04/30/2025 10:30 AM EDT Office Visit [facility] [address] [place] [address] [place] [address] Fredi Elaine DO 22 [place] [address] 07/22/2025 9:40 AM EDT Office Visit [facility] 22 [facility] 3rd Floor, [address] [place] [address] Asif Araiza MD, MS 22 [facility], [address] [place] [address] documented as of this encounter Visit Diagnoses Not on filedocumented in this encounter Additional Health Concerns Infection Onset Date Last Indicated Resolved Time CoV-Exposed Comment:Recent close contact documented in the COVID-19 PCR/PRO order 12/04/2020 12/18/2020 12/19/2020 1:25 AM E DT CoV-Risk 01/21/2022 01/21/2022 02/01/2022 1:32 AM EST documented as of this encounter Care Teams Commercial Litigation Associate Relationship Specialty Start Date End Date Lupis Copeland MD [address] [place] [address] [email or web address] PCP - General Family Medicine 01/04/20 06/09/20 Gordon Moralez MD [address] [place] [address] Saji [email or web address] PCP - General 06/10/20 07/22/20 aJ Holley MD 22 [facility], [address] [place] [address] PCP - General Internal Medicine 07/23/20 Emile Blake MD [address] [place] [address] Gastroenterology 10/31/18 Frank Mak MD [address] [place] [address], [address] [place] [address] [email or web address] Physical Medicine and Rehabilitation 11/14/20 [place] [address] Psychiatry 02/01/21 10/07/22 Rosalia Vargas RN 30 [place] [address] [email or web address] Surface Plate Finisher 02/12/21 03/10/21 Jamari Ellison DO [address] [place] [address] Orthopedics & Sports Medicine, [place] [address] Orthopedic Surgery 07/24/21 Fredi Unger MD [address] [place] [address] Ophthalmology 07/24/21 Elroy Calderon MD [address] [place] [address], [address] [place] [address] [email or web address] Urology 10/27/21 Ja Holley MD [address] [place] [address], [address] [place] [address] [email or web address] Insurance Assigned Provider 05/28/23 Bartolo Morgan MD [address] [place] [address] Psychiatry 10/08/22 Molly Spring, KATEY [address] [place] [address] [email or web address] Surface Plate Finisher 02/07/23 10/07/24 Priscilla Cosmes 10 [place] [address] [email or web address] Community Health Worker 03/29/23 03/29/23 Maximino Dorado MD, PhD [address] [place] [address] [email or web address] Radiation Oncology 05/03/23 Maximino Dorado MD, PhD [address] [place] [address] [email or web address] Radiation Oncology 06/01/23 06/25/23 Lincoln Thomson MD [address] [place] [address], [address] [place] [address] [email or web address] Physical Medicine and Rehabilitation 06/26/23 Dhaval Slater MD [address] [place] [address] Neurosurgery 07/07/23 documented as of this encounter Additional Source Comments The information contained in this document represents components of the legal health record. It is not the complete legal health record.[facility]
--- OUTSIDE RECORDS SUMMARY | 2024-11-23 13:03 | XMS_ITS | Encounter Summary ---
Author Organization [facility] Address [address] [place] [address] [place] [address] Phone Care Team Providers Care Information Developer Name Role Phone Emile Blake MD Unavailable [phone] Ja Holley MD Primary Care Provider [phone] Frank Mak MD Unavailable [phone] Jamari Ellison DO Unavailable [phone] Fredi Unger MD Unavailable [phone] Elroy Calderon MD Unavailable [phone] Ja Holley MD Unavailable [phone] Bartolo Morgan MD Unavailable [phone] Molly Spring RN Unavailable [email or web address] Criss Cosme Unavailable [phone] Maximino Dorado MD, PhD Unavailable [phone] Maximino Dorado MD, PhD Unavailable [phone] Lincoln Thomson MD Unavailable [phone] Dhaval Slater MD Unavailable Encounter Details Date Type Department Care Team (Late st Contact Info) Description 12/23/2022 Transcribe Orders [facility] Specimen Processing [address] [place], [place] [id number] Ja Holley MD 22 [facility], [address] [place], [place] [id number] [email or web address] Social History Tobacco Use Types Packs/Day Years [...] work, study, or receive health care? No 09/13/2022 Education Answer Date Recorded Are you interested in more education? Not on francisca e 07/26/2022 Are you concerned about learning? Not on file 07/26/2022 No 07/26/2022 No 07/26/2022 Food Answer Date Recorded Within the past 6 months we worried whether our food would run out before we got money to buy more. Sometimes True 023 Within the past 6 months the food we bought just didn't last and we didn't have enough money to get more. Sometimes True 08/22 Residential Stability Answer Date Recor ded What is your housing situation today? I have a place to live today, but I am worried about losing it in the next 3 months 09/13/2022 How many times have you move d in the past 12 months? Zero (I did not move) 09/13/2022 Paying for Meds Answer Date Recorded Do you have trouble paying for medicines? No 09/13/2022 Paying Utility Bills Answer Date Record ed Do you have trouble paying your heating or elect ricity bill? No 09/13/2022 Transportation Answer Date Recorded Has the lack of transportati on kept you from medical appointments or from getting medications? No 09/13/2022 Unemployment Answer Date Recorded Are you currently unemployed or working on a part-time or temporary basis, and looking for work? Yes 07/23/2020 Digital Access Answer Date Recorded No 09/13/2022 Yes 09/13/2022 Do you have reliable internet access at home? Ye s 09/13/2022 Do you have a device (e.g., phone, tablet, computer) with a working camera? 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 Not on file Not on file disabled Not on file Not on file Not on file documented as of this encounter Plan of Treatment Upcoming Encounters Date Type Department Care Team (Late st Contact Info) Description 12/27/2024 1:30 PM EST Appointment Department of Radiation Oncology [address] [place] [address] Lincoln Burton, MABLE [address] [place], [place] [address]L2 [place] [address] [email or web address] 02/19/2025 3:00 PM EST Office Visit [address] [address] Ja Holley MD [address] [place] [address], [address] [place] [address] 04/30/2025 10:30 AM EDT Office Visit [facility] [address] [place] [address] Fredi Elaine DO 22 [place] [address] 07/22/2025 9:40 AM EDT Office Visit [facility] [address] [place] [address] 3rd Floor, [address] [place] [address] Asif Araiza MD, MS [address] [place] [address], [address] [address] documented as of this encounter Visit Diagnoses Not on filedocumented in this encounter Additional Health Concerns Assessment Noted Time PHQ-9 Depression Total Score: 12 023 11:21 AM EDT PHQ-2 Depression Total Score: 3 07/14/19 23 11:21 AM EDT documented as of this encounter Care Teams Information Developer Relationship Specialty Start Date End Date Ja Holley MD [address] [place] [address], [address] [place] [address] PCP - General Internal Medicine 07/23/20 Emile Blake MD [address] [place] [address] Gastroenterology 10/31/18 Frank Mak MD [address] [place] [address], [address] [place] [address] [email or web address] Physical Medicine and Rehabilitation 11/14/20 Jamari Ellison DO [address] [place] [address] Orthopedics & Sports Medicine, [place] [address] Orthopedic Surgery 07/24/21 Fredi Unger MD [address] [place] [address] Ophthalmology 07/24/21 Elroy Calderon MD [address] [place] [address], [address] [place] [address] Urology 10/27/21 Ja Holley MD [address] [place] [address], [address] [place] [address] Insurance Assigned Provider 05/28/23 Bartolo Morgan MD [address] [place] [address] Psychiatry 10/08/22 Molly Spring RN [address] [address] [email or web address] [email or web address] Sales Agent 02/07/23 10/07/24 Criss Cosme [address] [place] [address] [email or web address] Community Health Worker 03/29/23 03/29/23 Maximino Dorado MD, PhD [address] [place] [address] [email or web address] Radiation Oncology 05/03/23 Maximino Dorado MD, PhD [address] [place] [address] [email or web address] Radiation Oncology 06/01/23 06/25/23 Lincoln Thomson MD [address] [place] [address] [email or web address] Physical Medicine and Rehabilitation 06/26/23 Dhaval Slater MD [address] [place] [address] Dr CALIX [address] [place] [address] Neurosurgery 07/07/23 documented as of this encounter Additional Source Comments The information contained in this document represents components of the legal health record. It is not the complete legal health record.[facility]
--- OUTSIDE RECORDS SUMMARY | 2024-11-23 13:03 | XMS_ITS | Clinical Summary ---
Author Organization [facility] Address [address] [place] [id number] Phone Care Team Providers Care Intervention Analyst Name Role Phone Emile Blake MD Unavailable Ja Holley MD Primary Care Provider [phone] Frank Mak MD Unavailable Jamari Ellison DO Unavailable Fredi Unger MD Unavailable Elroy Calderon MD Unavailable [phone] Ja Holley MD Unavailable Bartolo Morgan MD Unavailable Maximino Dorado MD, PhD Unavailable Lincoln Thomson MD Unavailable Dhaval Slater MD Unavailable Allergies No known active allergies Medications pantoprazole (PROTONIX) 20 MG tablet Take 1 tablet by mouth as needed. 04/06/19 24 Active olopatadine (PATADAY) 0.2 % Drop as needed. 10/03/19 24 Active olmesartan (BENICAR) 40 mg tablet Take 40 mg by mouth. 05/26/19 25 Active QUEtiapine (SEROQUEL) 25 MG tablet Take 1 tablet by mouth nightly at bedtime as needed. 03/26/19 25 Active amLODIPine (NORVASC) 5 MG tablet Take 5 mg by mouth daily. 05/26/19 25 Active albuterol 90 mcg/actuation inhaler Inhale 2 puffs into the lungs every 6 (six) hours as needed for wheezing. 18 g 1 06/21/19 25 Active sildenafiL (VIAGRA) 25 mg tabletIndicat ions:Prostate cancer Take 1-4 tablets (25-100 mg total) by mouth daily as needed (1 hr prior to sexual activity. No more than 100 mg in a 24-hour period). 10 tablet 09/11/19 25 Active tamsulosin (FLOMAX) 0.4 mg Cap TAKE ONE CAPSULE BY MOUTH EVERY DAY. START 1 WEEK BEFORE PROCEDURE 30 capsule 5 10/01/19 25 Active cholecalcifer ol (VITAMIN D3) 2,000 unit capsuleIndica tions:Vitamin D deficiency TAKE ONE CAPSULE BY MOUTH EVERY DAY 90 capsule 3 10/27/19 25 Active rosuvastatin (CRESTOR) 40 MG tabletIndicat ions:Hyperlip idemia LDL goal <70 Take 1 tablet (40 mg total) by mouth daily. 90 tablet 1 11/01/19 25 Active FREESTYLE 28 gauge lancetsIndica tions:Type 2 diabetes mellitus without complication, without long-term current use of insulin 1 each by Miscellaneous route daily. 100 each 3 11/01/19 25 Active FREESTYLE LITE Strp stripsIndicat ions:Type 2 diabetes mellitus without complication, without long-term current use of insulin 1 each by Miscellaneous route daily. 100 strip 3 11/01/19 25 Active naproxen (NAPROSYN) 375 MG tablet Take 375 mg by mouth 2 (two) times a day as needed. 10/03/19 25 Active FREESTYLE LITE Strp stripsIndicat ions:Type 2 diabetes mellitus without complication, without long-term current use of insulin 1 each by Miscellaneous route daily. 100 strip 3 04/02/19 25 2024 Discontinued(R eorder) FREESTYLE 28 gauge lancetsIndica tions:Type 2 diabetes mellitus without complication, without long-term current use of insulin 1 each by Miscellaneous route daily. 100 each 3 04/02/19 25 2024 Discontinued(R eorder) cholecalcifer ol (VITAMIN D3) 2,000 unit capsuleIndica tions:Vitamin D deficiency TAKE ONE CAPSULE BY MOUTH EVERY DAY 90 capsule 07/31/19 25 2024 Discontinued rosuvastatin (CRESTOR) 40 MG tabletIndicat ions:Hyperlip idemia LDL goal <100 TAKE ONE TABLET BY MOUTH EVERY DAY 90 tablet 09/29/19 25 2024 Discontinued(R eorder) Active Problems Problem Noted Date Diagnosed Date Adrenal benign tumor, left 07/05/2024 Assessment & Plan (07/19/2024 10:05 AM EDT): This is a benign adrenal tumor which is nonsecreting based on biochemical evaluation. He does not require further workup. Assessment & Plan (07/05/2024 9:27 AM EDT): At this point I am going to repeat 24-hour urine catecholamines and obtain metanephrines as well since this was not done. I will request serum aldosterone and renin level. This blood test should be done fasting in the morning. At this point I am still waiting on the dexamethasone level to see if the dexamethasone suppression test was an accurate study. However I will also request 24-hour urine cortisol since repeating the 24-hour urine studies and check salivary cortisol x 2 for further evaluation of the adrenal nodule/tumor. Hallux rigidus of both feet 03/09/2024 Osteoarthritis of ankle and foot 03/09/2024 Acquired hallux valgus of right foot 03/09/2024 Obsessive behavior 02/28/2024 Primary osteoarthritis of both shoulders 024 Assessment & Plan (12/15/2023 9:37 AM EDT): Pain is significantly disruptive. I reviewed his x-ray. The fact that he is failed to get substantial improvement with injections likely means his best option would be shoulder replacement. He is going to follow-up with orthopedics to discuss this later this year. He can continue using ibuprofen as needed but should use it sparingly and only if its effective in significantly improving his pain. Assessment & Plan (07/21/2023 9:32 AM EDT): Chronic osteoarthritis in multiple joints contributing to overall pain. -Continue current pain management regimen. History of actinic keratosis 10/27/2021 Assessment & Plan (10/27/2021 9:20 AM EDT): The area on his nose I believe is probably a scar from cryotherapy from an old actinic keratosis. At this point it appears benign. Should be followed clinically. Cervical spinal stenosis 07/28/2021 Overview (06/26/2023): Moderate at C5-6 on MRI in 2019. Unchanged on MRI June 2021, but severe multilevel foraminal stenosis. June 2023, worsening cord compression, now severe with worsening foraminal stenosis. Referred back to neurosurgery. Previous neurosurgical evaluation by Dr. Slater in 2019 and 2021 did not recommend surgery (symptoms do not seem consistent with myelopathy or radiculopathy). Assessment & Plan (07/21/2023 9:29 AM EDT): History of multiple injuries and surgeries leading to chronic pain in multiple joints including knees, lumbar spine, and shoulders. Recent cervical fusion due to arm weakness. Current pain management with Vicodin and Tizanidine deemed ineffective by the patient. -Continue current pain management regimen. -Consider consultation with custom motorcycle painter for further evaluation and treatment options. Assessment & Plan (07/06/2023 11:24 AM EDT): If labs show no significant abnormality, he is at low risk for complication related to surgery and there is no contraindication to proceeding with his cervical decompression. Assessment & Plan (01/13/2022 12:45 PM EST): MRI certainly seems to show multiple areas that could be causing his symptoms, but is not clear how much of these symptoms in his arms are related to arthritis and tendinitis versus radiculopathy. I like to have him reevaluated by neurosurgery. Referral was sent. Fibromyalgia syndrome 06/18/2021 Overview (05/31/2022): Failed multiple medications in the past Assessment & Plan (05/31/2022 8:51 AM EDT): Continues to have symptoms. I encouraged him to continue to exercise as tolerated but would avoid making any changes in his medication as they have not been efficacious in the past. Assessment & Plan (03/15/2022 1:07 PM EST): Significant amount of his problems related to fibromyalgia pain from his osteoarthritis. Importance of treatment for his mental health to lessen this application was emphasized. Continue regular exercise as this is definitely been helpful for him. Assessment & Plan (06/18/2021 9:20 AM EDT): Patient has a complex pain syndrome, clearly with some osteoarthritic component. His pain certainly seems amplified by his anxiety. I discouraged him from using an opioid as I doubt very much this will give him significant or lasting pain relief. I did applaud him for planning to work with the [facility] pain clinic which I think is likely to be very helpful to him. Treating his anxiety may be helpful and I encouraged him to try taking diazepam scheduled twice daily for a week to see if this has any significant impact on his pain. He has seen some benefit from ketorolac injections so I will give him a prescription to take the oral formulation to see if this is helpful. He will stop using meloxicam or other nonsteroidals. Primary osteoarthritis involving multiple joints 06/18/2021 Overview (06/18/2021): Failed Euflexxa and steroid injections Assessment & Plan (09/20/2023 8:54 PM EDT): Continues to have multiple joint pains. I think there is a component of fibromyalgia, but likely also significant osteoarthritis. He would like to try another medication. Meloxicam is a reasonable option, but it could raise his blood pressure so he needs to monitor that. If effective, he can take meloxicam once daily as needed for pain. Assessment & Plan (03/15/2022 1:09 PM EST): Left knee is feeling better after knee replacement. He is considering having his right knee done later this year. Assessment & Plan (10/27/2021 9:21 AM EDT): Planning to have a left knee replacement at [facility]. He will likely need a preop with me prior. Assessment & Plan (07/24/2021 10:15 AM EDT): Follow-up as planned with orthopedics he is planning to discuss possible knee replacement surgery Assessment & Plan (06/18/2021 9:19 AM EDT): Patient is considering total knee replacement. Asked him to follow-up with orthopedics. He is considering seeing an orthopedist at [facility] for Vitamin D deficiency 03/30/2021 Assessment & Plan (06/30/2021 9:41 AM EDT): Vitamin D levels are replete as long as he continues to take cholecalciferol 2000 units he should be fine. Narcissistic personality disorder 02/11/2021 Assessment & Plan (04/20/2023 9:12 AM EST): Doing reasonably well, seems somewhat better since starting ketamine. Type 2 diabetes mellitus wit hout complication, without long-term current use of insulin 02/01/2021 Overview (04/20/2023): Diet controlled. Assessment & Plan (11/01/2024 3:26 PM EDT): Blood sugars well-controlled, continue dietary management. Reminded to get influenza and COVID-19 vaccines at the pharmacy this fall. Assessment & Plan (10/31/2024 12:28 PM EDT): Controlled. Hemoglobin A1c 6.1% continue diet management exercise. Assessment & Plan (08/30/2024 11:12 AM EDT): Controlled. Hemoglobin A1c 6.4%. He was using Mounjaro temporarily but lost too much weight felt very fatigued and decided to stop. He actually does not require this medication he was doing well with diet control and he should continue doing the same continue monitoring diet and exercise. Exercise he gets plenty. Assessment & Plan (07/19/2024 10:09 AM EDT): Diet controlled. He was to follow-up in 3 months requested a hemoglobin A1c. Assessment & Plan (07/05/2024 9:46 AM EDT): Controlled. Hemoglobin A1c 6.4% urine microalbumin in the reference range. He is diet controlled. He should continue current regimen. Assessment & Plan (03/30/2024 8:54 AM EST): Controlled. But he would like to try a GLP-1 agonist. I will prescribe Mounjaro. Assessment & Plan (03/22/2024 9:14 AM EST): Sugars been well-controlled, continue dietary management Assessment & Plan (01/09/2024 9:30 AM EST): Controlled. Patient is diet controlled he exercises regularly. He does not require medications at present. Assessment & Plan (12/15/2023 9:36 AM EDT): Asymptomatic, unless hemoglobin A1c is substantially higher, continue dietary management. Assessment & Plan (09/28/2023 8:44 AM EDT): Controlled. Hemoglobin A1c is 6.6%. Continue diet and exercise. Assessment & Plan (09/20/2023 8:55 PM EDT): Blood sugars well-controlled with diet, continue same and recheck hemoglobin A1c at upcoming appointment Assessment & Plan (07/07/2023 3:17 PM EDT): Controlled. Continue diet and exercise. Repeat hemoglobin A1c in 6 months. Assessment & Plan (07/06/2023 11:24 AM EDT): Clinically doing well. Hemoglobin A1c has consistently been well-controlled below 6.5. Will recheck prior to surgery Assessment & Plan (04/20/2023 9:11 AM EST): Doing well with dietary management, continue the same. Assessment & Plan (03/29/2023 9:54 AM EST): Controlled. Hemoglobin A1c is 6.6%. Continue diet and exercise. Assessment & Plan (01/03/2023 2:07 PM EST): Doing very well with diet and exercise his hemoglobin A1c 6.4% he should continue what he is doing. Assessment & Plan (09/27/2022 11:06 AM EDT): His hemoglobin A1c increased but is still at or below 6.9%. This is controlled. He asked about use of metformin and I did tell him that based on diabetes prevention program trial study diet and exercise works best but if he wants to use metformin he can also use this. He states he does not want to be placed on another medication. So he should continue diet and exercise and repeat hemoglobin A1c in 6 months. Assessment & Plan (07/13/2022 12:01 PM EDT): Asymptomatic, recheck labs today. Assessment & Plan (05/31/2022 8:50 AM EDT): Last hemoglobin A1c about 2 months ago was up but still quite good. Continue dietary management. Assessment & Plan (03/25/2022 9:59 AM EST): Fair control his hemoglobin A1c is 6.5% increased from 5.7% but he states that he has been eating more sweets such as ice cream, chocolate and drinking soda something that he did not really used to do before he states he has not been eating it excessively but when he does eat it he does not do portion control very well. He is going to work on this he does not want to use diabetic medications at the present time. Assessment & Plan (01/01/2022 8:45 AM EST): Diet controlled hemoglobin A1c 5.7 continue what he is doing. Assessment & Plan (10/27/2021 9:21 AM EDT): Blood sugars well controlled, continue current diet. Assessment & Plan (07/24/2021 10:15 AM EDT): Diabetes is well controlled with diet and exercise. Continue the same. Assessment & Plan (06/30/2021 9:40 AM EDT): Diet controlled his hemoglobin A1c is 6.1% he should continue monitoring his diet he is following with the dietitian. He exercises regularly. Assessment & Plan (04/23/2021 10:52 AM EST): Dietary counseling was given. Unless his hemoglobin A1c is significantly higher, he does not need any medication. Assessment & Plan (03/30/2021 9:23 AM EST): The patient is now officially diabetic based on hemoglobin A1c of 6.5% so he continues with diet and exercise and he has seen the promotions manager and has learned a great deal and he is limiting his carbohydrate count. He is continuing to exercise. I will repeat her hemoglobin A1c in 3 months and also will obtain a urine microalbumin creatinine ratio asked him not to eat on that day to make sure that he does not exercise so that the protein will not be increased in the urine. Assessment & Plan (02/11/2021 2:39 PM EST): Blood sugar is gone up a little bit in the past couple of years. He is now at the point where he does have diabetes. He will see a clinical trial educator today and continue working on his diet. We will recheck his hemoglobin A1c at his next appointment Gastroesophageal reflux disease without esophagi tis 12/26/2020 Assessment & Plan (11/01/2024 3:28 PM EDT): Minimal amount of symptoms. This sensation he has around his thyroid cartilage is likely benign. Less symptoms worsen, I do not see any indication for an ENT evaluation Assessment & Plan (10/08/2022 9:29 AM EDT): Clearly symptoms are exacerbated by drinking coffee and encouraged him to discontinue this. He may then be able to discontinue using sucralfate and omeprazole. Assessment & Plan (04/23/2021 10:53 AM EST): He has had chronic symptoms for many years. I think part of this is due to his anxiety and I tried to reassure him that there is unlikely that he has any significant pathology in his esophagus since he has been symptomatic for many years and endoscopy is a consistently been normal. Assessment & Plan (12/26/2020 10:04 AM EDT): He can continue using Tums or famotidine as needed. Patient is concerned about the potential for developing osteopenia on a proton pump inhibitor, but reviewing his chart shows he has normal bone density. S/P inguinal hernia repair using synthetic patch 11/18/2020 Prostate cancer 10/09/2020 Overview (06/01/2023): Diagnosed in 2019, Tatyana 3+3. 2023, disease progressing. April 2023 started brachytherapy at [facility] Assessment & Plan (11/01/2024 3:26 PM EDT): Clinically doing well with PSA low and stable. Follow-up as planned with radiation oncology. Assessment & Plan (03/22/2024 9:13 AM EST): Doing well. He does have some symptoms of overactive bladder. I asked him to cut back on his caffeine intake and see if that helps. If symptoms persist we could add some medication for this. Assessment & Plan (12/15/2023 9:36 AM EDT): Clinically doing well. Recheck PSA and follow-up as planned with urology later this month. Assessment & Plan (07/06/2023 11:23 AM EDT): Clinically doing well Assessment & Plan (06/01/2023 1:39 PM EDT): More tired since last brachytherapy, but generally doing okay. Follow-up with radiation oncology as planned. Assessment & Plan (04/20/2023 9:11 AM EST): Considering having intermittent radium seeds implanted in [place]. Follow-up as planned with radiation oncology. Assessment & Plan (03/10/2023 8:46 AM EST): Clinically is doing reasonably well. Planning to start radiation. Follow-up as planned with radiation oncology and urology. Assessment & Plan (02/16/2023 2:48 PM EST): From his description sounds like he has had progression of his disease. He will follow-up as planned with urology to discuss management. Assessment & Plan (12/03/2022 5:58 PM EDT): Possible the back pain could be related to progression of prostate cancer. Like him to have a PSA checked as well as an x-ray of his spine. Assessment & Plan (10/27/2021 9:21 AM EDT): Clinically is doing well, follow-up as planned with urology this fall Assessment & Plan (07/24/2021 10:15 AM EDT): He is minimally symptomatic and his PSA is quite low. Continue to follow clinically and follow-up as planned with urology Assessment & Plan (02/11/2021 2:35 PM EST): Clinically is doing well, follow-up as scheduled with urology every 3-month Spondylolisthesis, lumbar region 09/25/2020 Overview (09/25/2020): L4-5, xray 2015, retrolisthesis of 6 mm of L2-3, anterolisthesis 6 mm L5-S1 November 2019 Assessment & Plan (12/15/2023 9:38 AM EDT): Back pain and radicular pain are unchanged. I would not recommend using an opioid due to the chronicity of his pain and pain involving multiple sites. Likelihood he will have significant improvement in his quality of life is low also given his chronic mental health problems. A better option may be nerve ablation as these considering. No follow-up as planned with the [place] pain clinic. Degenerative disc disease, cervical 09/25/2020 Overview (11/01/2024): MRI 2021 severe multilevel foraminal stenosis, moderate central canal stenosis. C3-5 fusion 2023 Assessment & Plan (07/24/2021 10:17 AM EDT): He continues to have pain in his shoulders which is more likely arthritic than radicular. He can continue using diclofenac and home exercises, but I do not see any indication for surgical intervention. Assessment & Plan (04/23/2021 10:55 AM EST): He has some paresthesias in the C6 distribution. He has no weakness. I reassured him it is unlikely his symptoms will progress. He should avoid any hyper flexion or extension of his neck. Unless his symptoms worsen no further intervention is recommended. Assessment & Plan (09/25/2020 9:47 AM EDT): MRI done about 18 months ago shows significant foraminal stenosis. From what he describes as something he had an EMG to assess the significance of the compression. I will pain the report and review it. My impression is that physiatry did not feel that surgical intervention was likely to be help. Chronic fatigue 08/22/2020 Assessment & Plan (09/25/2020 9:29 AM EDT): I check endocrine etiologies for fatigue and at their levels are within reference range of check for acromegaly and adrenal insufficiency, cortisol levels were in the reference range. TSH levels within the reference range. Assessment & Plan (08/22/2020 9:50 AM EDT): He has multiple reasons for fatigue he has arthralgias he does not sleep well he is depressed he is taking antidepressants. Hormonally everything so far that has been checked has been within the reference range. Potentially diabetes can result in fatigue. He has not had IGF-I levels checked and I really doubt that he has growth hormone deficiency but we can check this. I can repeat cortisol levels that in the past have been in the reference range. Hyperlipidemia LDL goal <70 08/22/2020 Assessment & Plan (10/31/2024 12:28 PM EDT): Controlled. LDL 69 mg/dL continue rosuvastatin 40. Assessment & Plan (08/30/2024 11:11 AM EDT): Controlled. LDL 63 mg/dL on rosuvastatin 40 mg daily no changes required. Assessment & Plan (07/05/2024 9:47 AM EDT): Controlled. LDL 63 mg/dL. Continue rosuvastatin. Assessment & Plan (03/30/2024 8:53 AM EST): Controlled. LDL 94 mg continue Crestor 40. Assessment & Plan (01/09/2024 9:30 AM EST): Controlled based on last lipid panel LDL 94 mg/dL previously using Crestor 40 mg. Unfortunately he did not repeat lipid panel prior to this visit. Advised to obtain at a later date. Assessment & Plan (09/28/2023 8:43 AM EDT): Controlled, LDL is 94 mg/dl he continues on Rosuvastatin 40 mg daily. Repeat lipid in 6 months. Assessment & Plan (07/07/2023 3:18 PM EDT): Controlled. LDL is 94 mg/dl continue Rosuvastatin 40 mg daily. Assessment & Plan (03/29/2023 9:28 AM EST): I do not have a lipid panel. He needs to get this done fasting but based on last LDL of 116 mg/dL he was not in the reference range but he has an excellent HDL and low cardiac risk ratio. He should continue Crestor 40 mg. Assessment & Plan (01/03/2023 2:07 PM EST): Uncontrolled we aim for an LDL of less than 100 mg/dL. Having said this he has very high HDL and low cardiac risk ratio. He should make an effort to take rosuvastatin 40 mg daily. Repeat lipid panel in 6 months time. Assessment & Plan (09/27/2022 11:06 AM EDT): Uncontrolled. His LDL was 112 mg he is going to do a trial of Crestor 40 mg concerned about myalgias. He should repeat the lipid panel prior to the follow-up visit in 6 months Assessment & Plan (03/25/2022 10:00 AM EST): Fair control. His LDL was 104 mg/dL on Crestor 20 mg but his cardiac risk ratio is low at 3.0 because he has very high HDL due to exercise. So not going to increase the dose of the Crestor and will continue monitoring levels. Assessment & Plan (01/01/2022 8:46 AM EST): Uncontrolled LDL 122 mg on Crestor 10 mg he feels that when he stopped statin he still continues to have myalgias. So he does not feel that the statin is the cause of his muscle pain. If this is the case then I will increase the dose of Crestor to 20 mg. I had a discussion with him where I explained that if he is having muscle pain and he feels that it is due to the Crestor we can always stop this and prescribe another medication such as ezetimibe. There are also PCSK9 inhibitors that he can use which is an injectable medication so maybe he would not want to do that. The bottom line is his LDL was uncontrolled and we need to find the right management. So at this point he feels okay to proceed with increasing the dose of Crestor to 20 mg a day. Assessment & Plan (06/30/2021 9:40 AM EDT): His LDL was elevated I had increased his Crestor to 10 mg but unfortunately forgot to request a lipid panel. I will request this today and he can get it done anytime. Assessment & Plan (03/30/2021 9:27 AM EST): UNControlled. LDL 133 mg/dL will increase Crestor to 10 mg daily and repeat levels in 3 months. He was advised to do the lab work fasting. Assessment & Plan (12/26/2020 10:38 AM EDT): He was prescribed Crestor 5 mg unfortunately he did not repeat her lipid panel prior to this visit. At this point I have renew the patient's medication. I deleted the previous lipid panel and I ordered a new 1 to be done fasting prior to the follow-up visit in 3 months. Assessment & Plan (09/25/2020 9:28 AM EDT): LDL should be less than 160 mg he agreed to take statins I will prescribe Crestor 5 mg daily repeat lipid panel in 3 months time. Assessment & Plan (08/22/2020 9:48 AM EDT): The patient has hyperlipidemia 1 risk factor his LDL should be less than 160. If he is diabetic the LDL should be less than 100 but I cannot say he is diabetic because his hemoglobin A1c was 6.4%. I do recommend a statin either atorvastatin or rosuvastatin he states that he is going to inquire with his primary care physician. Essential (primary) hypertension 07/23/2020 Overview (09/20/2023): No change with spironolactone, hydrochlorothiazide Assessment & Plan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 BRIANA (obstructive sleep apnea) 10/27/2021 06/01/2023 Overview (01/13/2022): Not able to tolerate CPAP. Sleep study in 2019. Noted to desaturate into the low 80s postoperatively after knee replacement in November 2021 Assessment & Plan (07/13/2022 12:01 PM EDT): Fortunately has been able to find a new mask that he is able to tolerate is doing much better. Continue the same Assessment & Plan (01/13/2022 12:48 PM EST): Patient is agreeable to retrying CPAP. He will see if he can get a copy of his sleep study done at sleep medicine services. I will also like him to be evaluated by sleep medicine referral was sent. He should avoid taking diazepam within 6 hours of bedtime because of the potential for respiratory depression, hypoxemia which could precipitate a fatal arrhythmia. Assessment & Plan (10/27/2021 9:22 AM EDT): Daytime somnolence is likely at least partially due to sleep apnea. Unfortunately is not able to tolerate CPAP and is not interested in looking at any other treatments at this time. Low back pain at multiple sites 06/24/2021 03/10/2023 Need for prophylactic vaccin ation and inoculation against influenza 12/26/2020 02/11/2021 S/P umbilical hernia repair, follow-up exam 11/18/2020 02/16/2023 Non-recurrent unilateral ing uinal hernia without obstruction or gangrene 10/20/2020 02/27/19 25 Prediabetes 08/22/2020 02/01/2021 Assessment & Plan (12/26/2020 10:39 AM EDT): Based on glucose tolerance test he does not have diabetes. I see that his primary care physician has requested hemoglobin A1c. In order to prevent progression from prediabetes to diabetes he needs to diet and exercise. He could also use Metformin extended release 500 mg once a day. The patient is on many medications. He exercises regularly and is quite fit. So he should continue with diet and exercise for the time being. Based on the diabetes prevention trial diet and exercise was more effective than Metformin for prevention of diabetes mellitus. Assessment & Plan (09/25/2020 9:28 AM EDT): Hemoglobin A1c 6.4% he is going to get a glucose tolerance test eventually. We will discuss this after the fact. Assessment & Plan (08/22/2020 9:49 AM EDT): Hemoglobin A1c 6.4% I explained to him that hemoglobin A1c of 6.5% his diabetes but he has high hemoglobin hematocrit unclear why and this may give us a false hemoglobin A1c what I will recommend is a glucose tolerance test if he's willing. Health care maintenance 08/22/202010/22 Assessment & Plan (08/30/2024 11:03 AM EDT): He is currently taking vitamin D 2000 units daily in the past he was deficient so I believe that he needs to take it. I will check a vitamin D level just to make sure that his numbers are in the reference range. Assessment & Plan (12/26/2020 10:25 AM EDT): On the last visit I requested a DXA scan that was done at [facility] on 10/03/2020 his T-scores are all in the normal reference range so he has normal bone mineral density. Assessment & Plan (09/25/2020 9:30 AM EDT): I requested a DEXA scan this is going to be done next week. Assessment & Plan (08/22/2020 9:51 AM EDT): The patient believes he has DJD he has arthralgias. He is on SSRIs and proton pump inhibitors that are risk factors for developing osteopenia/osteoporosis he may benefit from DXA scan. Lumbar radiculopathy 12/10/2008 025 Overview (02/28/2024): Dr Rodriguez, [facility] Encounters Date Type Department Care Team Description 11/15/[address] [place] [address] Ja Holley MD Referral; Request For Order(s) 11/01/2024 3:00 PM EDT Office Visit [address] [place] [address] Ja Holley MD Essential (primary) hypertension (Primary Dx); Type 2 diabetes mellitus without complication, without long-term current use of insulin; Degenerative disc disease, cervical; Generalized anxiety disorder; Prostate cancer; Gastroesophageal reflux disease without esophagitis 10/31/2024 12:10 PM EDT Office Visit [facility] Endocrinology [address] [place] [address] [place] [address] Fredi Elaine DO Type 2 diabetes mellitus without complication, without long-term current use of insulin (Primary Dx); Hyperlipidemia LDL goal <70 10/26/2024 Refill [facility] Endocrinology [address] [place] [address] [place] [address] Fredi Elaine DO Medication Refill 10/24/2024 12:30 PM EDT - 10/24/2024 11:59 PM EDT Hospital Encounter [facility] [address] [place] [address] Fredi Elaine DO Discharge Disposition: Home or Self Care 10/08/2024 Patient Outreach [facility] [address] [place] [address] Rosalia Vargas RN Administration (iCMP Discharge ) 10/08/2024 Patient Outreach [facility] [address] [place] [address] Molly Spring, KATEY Care Coordination (iCMP Follow up outreach/NCM transition ) 10/03/2024 2:30 PM EDT Office Visit [facility] Orthopedics & Sports Medicine [address] [place] [address] Jamari Ellison DO Chronic pain of both shoulders (Primary Dx) 09/27/2024 Refill [facility] [address] [place] [address] Fredi Elaine DO Medication Refill 09/27/2024 Refill Department of Radiation Oncology [address] [place] [address] Susy Murphy PA-C Medication Refill 09/10/2024 10:50 AM EDT - 09/10/2024 11:59 PM EDT Hospital Encounter Department of Radiation Oncology [address] [place] [address] Lincoln Burton, ALTERATION HAND Discharge Disposition: Home or Self Care 09/05/2024 Patient Outreach [facility] [address] [place] [address] Molly Spring, KATEY Care Coordination (iCMP Follow up outreach ) 08/30/2024 11:28 AM EDT - 08/30/2024 11:59 PM EDT Hospital Encounter [facility] Laboratory [address] [place] [address] [place] [address] Lincoln Burton, ALTERATION HAND Discharge Disposition: Home or Self Care 08/30/2024 11:10 AM EDT Office Visit [facility] [address] [place] [address] Fredi Elaine DO Type 2 diabetes mellitus without complication, without long-term current use of insulin (Primary Dx); Long-term corticosteroid use; Hyperlipidemia LDL goal <70; Health care maintenance from Last 3 Months Immunizations Immunization Administration Dates Next Due COVID-19 (Pre-12/13) Pfizer Vaccine, mRNA, PF 10/31/2021,05/13/2020,04/14/2020 INFLUENZA, SPLIT VIRUS, TRIV ALENT W/ PRESERVATIVE IM 12/16/2016,12/06/2014,11/09/2013,12/18,11/18/2011,11/02/2010,12/25/2009 Influenza High-Dose Quadriva lent Preservative Free IM 02/08/2022,10/31/2021,03/04/2021,12/26 Influenza High-Dose Trivalen t Preservative Free IM 12/19/2018,12/09/2015 Influenza Quadrivalent Adjuv anted Preservative Free IM 11/08/2019 Influenza Trivalent Adjuvant ed Preservative free IM 11/22/2017 Pneumococcal conjugate PCV13 12/16/2016 Pneumococcal polysaccharide PPSV23 12/27/2019 Td, unspecified formulation 12/09/2008, 8 Tdap 12/27/2019 Zoster recombinant 09/14/2017,06/03/2017 Family History Medical History Relation Comments Prostate cancer Brother Stroke Father Breast cancer Mother Hypertension Sister Stroke Sister Sleep disorder Neg Hx Relation Status Comments Brother (Age 72) Father (Age 71) Mother (Age 62) Sister (Age 62) Social History Tobacco Use Types Packs/Day Years Used Date Smoking Tobacco: Never Smokeless Tobacco: Never Tobacco Cessation:Counseling Given: Not Answered Alcohol Use Standard Drinks/Week Comments Not Currently [...] 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 Not on file Not on file disabled Not on file Not on file Not on file Last Filed Vital Signs Vital Sign Reading Time Taken Comments Blood Pressure 130/62 11/01/2024 2:59 PM EDT Pulse 62 11/01/2024 2:59 PM EDT Temperature 36.4 C (97.6 F) 11/01/2024 2:59 PM EDT Respiratory Rate 20 10/08/2023 10:0 1 PM EDT Oxygen Saturation 98% 11/01/2024 2:59 PM EDT Inhaled Oxygen Concentration - - Weight 83.8 kg (184 lb 12.8 oz) 11/01/2024 2:59 PM EDT Height 185.4 cm (6' 0.99 ) 11/01/2024 2:59 PM ED T Body Mass Index 24.39 11/01/2024 2:59 PM EDT Plan of Treatment Upcoming Encounters Date Type Department Care Team (Late st Contact Info) Description 12/27/2024 1:30 PM EST Appointment Department of Radiation Oncology [address] [place] [address] Lincoln Burton, MABLE [address] [place] [address] [email or web address] 02/19/2025 3:00 PM EST Office Visit [facility] [address] [place] [address] Ja Holley MD [address] [facility] [place] [address] 04/30/2025 10:30 AM EDT Office Visit [facility] [address] [place] [address] Fredi Elaine DO 22 [place] [address] 07/22/2025 9:40 AM EDT Office Visit [facility] [address], [address] [place] [address] Asif Araiza MD, MS [address] [facility], [address] [place] [address] [email or web address] Health Maintenance Due Date Last Done Comments HEPATITIS A VACCINES (1 of 2 - Risk 2-dose series) 1969 COLOGUARD 09/08/1995 FIT TEST 09/08/1995 FOBT 09/08/1995 SIGMOIDOSCOPY 09/08/1995 VIRTUAL COLONOSCOPY 09/08/1995 DIABETIC EYE EXAM 11/09/2023 11/08/2022 INFLUENZA VACCINE (#1) 2024 , 11/18/2022, 11/18/2022, Additional history exists COVID-19 VACCINE (2024- season) 2024 12/06/2023, 11/18/2022, 10/31/2021, Additional history exists REPEAT PHQ 12/01/2024 11/01/2024, 11/01/2024 COLONOSCOPY 03/10/2025 03/10/2022, 01/20/2017 COLORECTAL CANCER SCREENING 03/10/2025 HEMOGLOBIN A1C 04/23/2025 10/24/2024, 05, 12/15/2023, Additional history exists BLOOD PRESSURE 05/01/2025 11/01/2024 URINE MICROALBUMIN/CREATININE RATIO 06/30/2025 06/30/2024, 03/30/2023, 01/04/2023, Additional history exists DEPRESSION SCREENING 11/01/2025 11/01/2024, 11/02/19 25 Adult Td,Tdap Booster 02/25/2033 02/25/2023 , 12/27/2019, 12/09/2008, Additional history exists HEPATITIS C SCREENING Completed 03/28/2017, 018 ZOSTER VACCINES Completed 09/14/2017, 06/03/2017 PNEUMOCOCCAL VACCINES (50+ years) Completed 12/27/2019, 12/16/2016 RSV VACCINE Completed 02/25/2023 SMOKING STATUS SCREENING (Once After 26 Yrs) Completed 11/01/2024 HIB VACCINES Aged Out No longer eligi ble based on patient's age to complete this topic MENINGOCOCCAL VACCINES (ACWY) Aged Out No longer eligible based on patient's age to complete this topic MENINGOCOCCAL VACCINES (B) Aged Out N o longer eligible based on patient's age to complete this topic Medical Devices Implanted Type Area Heading Machine Operator Device Identifier Shelf Expiration Date Model / Serial / Lot Mesh Graft 1.6x1.9in 4.1 4.8cm Lg Perfix Polypropylene Monofilament Plug Inguinal Hernia Soft Tissue Repair Cs/2ea - [id number] Implanted:Qty: 1 on 11/05/2020 by Monique Cuenca MD at [facility] STANDARD Left: Inguinal DAVOL 06/18/2025 [id number] / / [id number] Mesh Surgical 1 32/32in Hernia Prolene 3d Polypropylene Patch Bx/3ea - [id number] Implanted:Qty: 1 on 11/05/2020 by Monique Cuenca MD at [facility] STANDARD N/A: Umbilical JNJ ETHICON / DIVISION OF J 04/20/2024 [id number] / / [id number] Procedures Procedure Name Priority Date/Time Associated Diagnosis Comments HEMOGLOBIN A1C Routine 10/24/2024 12:33 PM EDT Type 2 diabetes mellitus without complication, without long-term current use of insulin 25-OH VITAMIN D Routine 10/24/2024 12:33 PM EDT Health care maintenance PSA DIAGNOSTIC (MONITORING) Routine 08/30/2024 11:38 AM EDT Prostate cancer MICROALBUMIN/CREATIN INE RATIO, RANDOM URINE Routine 06/30/2024 9:39 AM EDT Type 2 diabetes mellitus without complication, without long-term current use of insulin HM DIABETES EYE EXAM FOR RESULT ENTRY ONLY Routine 11/08/2022 HM COLONOSCOPY FOR RESULT ENTRY ONLY Routine 03/10/2022 HEPATITIS C ANTIBODY, QUALITATIVE Routine 03/28/2017 1:35 PM EST Abdominal distention from Last 3 Months or Most Recently Relevant to Health Maintenance Results * 25-OH vitamin D (10/24/2024 12:33 PM EDT) 25 OH VIT D (TOTAL) 59 30 - 60 ng/mL [facility] Blood 10/24/2024 12:3 3 PM EDT 10/24/2024 12:44 PM EDT Fredi Elaine DO LAB BLOOD ORDERABLES Final Resul t Performing Organization Address [facility] Co de Phone Number [address] [address] * (ABNORMAL) Hemoglobin A1c (10/24/2024 12:33 PM EDT) HEMOGLOBIN A1C 6.1(H) 4.3 - 5.8 % [facility] Blood 10/24/2024 12:3 3 PM EDT 10/24/2024 12:44 PM EDT us Fredi Elaine DO LAB BLOOD ORDERABLES Final Resul t Performing Organization Address [facility] Co de Phone Number [address] [address] * PSA diagnostic (monitoring) (08/30/2024 11:38 AM EDT) PSA 0.89 0 - 4.00 ng/mL [facility] Comment: Test Methodology Maricruz [id number] Patient results determined by assays using different manufacturers or methods may not be comparable. Blood 08/30/2024 11:3 8 AM EDT 08/30/2024 11:42 AM EDT us Lincoln Burton ALTERATION HAND LAB BLOOD ORDERABLES Final Result Performing Organization Address [facility] Co de Phone Number [address] [address] * Microalbumin/creatinine ratio, random urine (06/30/2024 9:39 AM EDT) URINE MICROALBUMIN <1.2 0 - 2.3 mg/dL [facility] URINE CREATININE 39 mg/dL [facility] MICROALB/CRE RATIO NOT CALCULATED 0 - 20 mg/g Cre [facility] Comment:due to Microalbumin <1.2 Urine (Urine) 06/30/2024 9:3 9 AM EDT 06/30/2024 9:41 AM EDT us Fredi Elaine DO URINE ORDERABLES Final Result Performing Organization Address [facility] Co de Phone Number [address] [address] * DIABETES EYE EXAM FOR RESULT ENTRY ONLY (11/08/2022) us Annie Provider HEALTH MAINTENANCE Edited Result - Final * COLONOSCOPY FOR RESULT ENTRY ONLY (03/10/2022) us Ja Holley MD HEALTH MAINTENANCE Edited Result - Final * Hepatitis C antibody, qualitative (03/28/2017 1:35 PM EST) HCV Negative Negative [facility] Comment: This is a screening test and should be confirmed with molecular testing Blood 03/28/2017 1:35 PM EST 03/28/2017 1:39 PM EST us Emile Blake MD LAB BLOOD ORDERABLES Final R esult Performing Organization Address [facility] Co de Phone Number [address] [address] from Last 3 Months or Most Recently Relevant to Health Maintenance Insurance MEDICARE PART A & B [facility] * Guarantor: Albert [employer] Account Type Relation to Patient Date of Phone Billing Address Personal/Family Self [address] [place] [address] MEDICARE PART A & B [facility] MEDICARE PART A & [address] [place], [place] [address]HEALTH MEDICARE PART A & B [facility] MEDICARE PART A & B [place]ALTH MEDICARE PART [place] & [place] MED[place] PART [place] & B HEALTH MEDICARE PART A & B [facility] Advance Directives For more information, please contact: [phone] (9AM - 5PM [facility], Tuesday-Tuesday) Documents on File Type Date Recorded Patient Larder Cook Expl anation Healthcare Proxy 08/04/2018 2:10 PM HC PRO XY * Full Code (Latest Code Status on File) Date Activated Date Inactivated Comments 11/05/2020 11:05 AM Question Answer Comments Code Status Confirmed With: Patient Care Teams Intervention Analyst Relationship Specialty Start Date End Date Ja Holley MD [address] [place] [address], [address] [place] [address] PCP - General Internal Medicine 07/23/20 Emile Blake MD [address] [place] [address] Gastroenterology 10/31/18 Frank Mak MD [address] [place] [address], [address] [place] [address] [email or web address] Physical Medicine and Rehabilitation 11/14/20 Jamari [place] DO [address] [place] [address] Orthopedics & Sports Medicine, [place] [address] Orthopedic Surgery 07/24/21 Fredi Unger MD [address] [place] [address] [address] [place] [address] Ophthalmology 07/24/21 Elroy Calderon MD [address] [place] [address], [address] [place] [address] Urology 10/27/21 Ja Holley MD [address] [place] [address], [address] [place] [address] [email or web address] Insurance Assigned Provider 05/28/23 Bartolo Morgan MD [address] [place] [address] Psychiatry 10/08/22 Maximino Dorado MD, PhD [address] [place] [address] [email or web address] Radiation Oncology 05/03/23 Lincoln Thomson MD [address] [place] [address], [address] [place] [address] Physical Medicine and Rehabilitation 06/26/23 Dhaval Slater MD [address] [place] [address] Neurosurgery 07/07/23 Additional Source Comments The information contained in this document represents components of the legal health record. It is not the complete legal health record.[facility]
--- OUTSIDE RECORDS SUMMARY | 2024-11-23 13:03 | XMS_ITS | Encounter Summary ---
Author Organization [facility] Address [address] [place] [address] Phone Care Team Providers Care Pick Up Name Role Phone Emile Blake MD Unavailable [phone] Ja Holley MD Primary Care Provider [phone] Frank Mak MD Unavailable [phone] Alfonzo Perkins MD Unavailable Jamari Ellison DO Unavailable [phone] Fredi Unger MD Unavailable Elroy Calderon MD Unavailable [phone] Ja Holley MD Unavailable [phone] Bartolo Morgan MD Unavailable [phone] Molly Spring RN Unavailable [email or web address] Criss Cosme Unavailable [phone] Maximino Dorado MD, PhD Unavailable [phone] Maximino Dorado MD, PhD Unavailable [phone] Lincoln Thomson MD Unavailable [phone] Dhaval Slater MD Unavailable Encounter Details Date Type Department Care Team (Late st Contact Info) Description 12/23/2021 Procedure Pass OR Admitting Dept - Virtual Department [address] [place], [place] [id number] Social History Tobacco Use Types Packs/Day Years [...] high school, GED, job training, learning the Hungarian language, technical skills, or developing parenting skills)? [...] in? 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 file disabled Not on file Not on file Not on file documented as of this encounter Plan of Treatment Upcoming Encounters Date Type Department Care Team (Late st Contact Info) Description 12/27/2024 1:30 PM EST Appointment Department of Radiation Oncology [address] [facility] [address] [place] [address] Lincoln Burton, WOMEN'S STUDIES LECTURER [address] [facility] [address] [place] [address] [email or web address] 02/19/2025 3:00 PM EST Office Visit [address] [place] [address] Ja Holley MD [address] [place] [address], [address] [place] [address] 04/30/2025 10:30 AM EDT Office Visit [facility] [address] [place] [address] [place] [address] Fredi Elaine DO 22 [place] [address] 07/22/2025 9:40 AM EDT Office Visit [facility] [address] [place] [address] Dr [address] Floor, [address] [place] [address] Asif Araiza MD, MS [address] [place] [address], [address] [place] [address] documented as of this encounter Visit Diagnoses Not on filedocumented in this encounter Additional Health Concerns Infection Onset Date Last Indicated Resolved Time CoV-Risk 01/21/2022 01/21/2022 02/01/2022 1:32 AM EST Assessment Noted Time PHQ-9 Depression Total Score: 23 021 8:56 AM EDT PHQ-2 Depression Total Score: 6 07/24/19 21 8:56 AM EDT documented as of this encounter Care Teams Pick Up Relationship Specialty Start Date End Date Ja Holley MD [address] [place] [address], [address] [place] [address] PCP - General Internal Medicine 07/23/20 Emile Blake MD [address] [place] [address] [email or web address] Gastroenterology 10/31/18 Frank Mak MD [address] [place] [address], [address] [place] [address] [email or web address] Physical Medicine and Rehabilitation 11/14/20 [place] [address] [email or web address] 02/01/21 10/07/22 Jamari [place] DO [address] [place] [address] Orthopedics & Sports Medicine, [place] [address] Orthopedic Surgery 07/24/21 Fredi Unger MD [address] [place] [address] Ophthalmology 07/24/21 Elroy Calderon MD [address] [place] [address], [address] [address] Urology 10/27/21 Ja Holley MD [address] [place] [address], [address] [place] [address] [email or web address] Insurance Assigned Provider 05/28/23 Bartolo Morgan MD [address] [address] Psychiatry 10/08/22 Molly Spring RN [address] [place] [address] [email or web address] Insurance Underwriter 02/07/23 10/07/24 Criss Cosme [address] [place] [address] [email or web address] 03/29/23 03/29/23 Maximino Dorado MD, PhD [address] [place] [phone] [email or web address] Radiation Oncology 05/03/23 Maximino Dorado MD, PhD [address] [place] [phone] [email or web address] [email or web address] Oncology 06/01/23 06/25/23 Lincoln Thomson MD [address] [place] [address], [address] [place] [address] [email or web address] Physical Medicine and Rehabilitation 06/26/23 Dhaval Slater MD [address] [place] [address] Dr CALIX [address] [place] [address] Neurosurgery 07/07/23 documented as of this encounter Additional Source Comments The information contained in this document represents components of the legal health record. It is not the complete legal health record.[facility]
--- OUTSIDE RECORDS SUMMARY | 2024-11-23 13:03 | XMS_ITS | Encounter Summary ---
Author Organization [facility] Address [address] [place] [address] Phone Care Team Providers Care Life Support Technician Name Role Phone Emile Blake MD Unavailable Andrei Coon DO Primary Care Provider Lupis Copeland MD Primary Care Provider [phone] Gordon Moralez MD Primary Care Provider [phone] Ja Holley MD Primary Care Provider [phone] Frank Mak MD Unavailable Alfonzo Perkins MD Unavailable Rosalia Vargas RN Unavailable [phone] Jamari Ellison DO Unavailable Fredi Unger MD Unavailable Elroy Calderon MD Unavailable Ja Holley MD Unavailable Bartolo Morgan MD Unavailable [phone] Molly Spring RN Unavailable [email or web address] Criss Cosme Unavailable [phone] Maximino Dorado MD, PhD Unavailable [phone] Maximino Dorado MD, PhD Unavailable [phone] Lincoln Thomson MD Unavailable Dhaval Slater MD Unavailable Encounter Details Date Type Department Care Team (Late Contact Info) Description 03/13/2019 Procedure Pass [facility], [facility] - [address] [address] Social History Tobacco Use Types Packs/Day Years [...] AM EDT documented as of this encounter Last Filed Vital Signs Vital Sign Reading Time Taken Comments Blood Pressure - - Pulse - - Temperature - - Respiratory Rate - - Oxygen Saturation - - Inhaled Oxygen Concentration - - Weight 87.1 kg (192 lb) 03/14/2019 2:09 PM EST Height 185.4 cm (6' 1 ) 03/14/2019 2:09 PM EST Body Mass Index 25.33 03/14/2019 2:09 PM EST documented in this encounter Plan of Treatment Upcoming Encounters Date Type Department Care Team (Late Contact Info) Description 12/27/2024 1:30 PM EST Appointment Department of Radiation Oncology [address] [place] [address] Lincoln Burton, PHOTO LAB MANAGER [address] [place] [address] [email or web address] 02/19/2025 3:00 PM EST Office Visit [address] [place] [address] Ja Holley MD [address] [place] [address], [address] [place] [address] 04/30/2025 10:30 AM EDT Office Visit [facility] [address] [place] [address] [place] [address] Fredi Elaine DO 22 [place] [address] [email or web address] 07/22/2025 9:40 AM EDT Office Visit [facility] 22 [facility] 3rd Floor, [address] [place] [address] Asif Araiza MD, MS 22 [facility], [address] [place] [address] [email or web address] documented as of this encounter Visit Diagnoses Not on filedocumented in this encounter Additional Health Concerns Infection Onset Date Last Indicated Resolved Time CoV-Exposed Comment:Recent close contact documented in the COVID-19 PCR/PRO order 12/04/2020 12/18/2020 12/19/2020 1:25 AM E DT CoV-Risk 01/21/2022 01/21/2022 02/01/2022 1:32 AM EST documented as of this encounter Care Teams Life Support Technician Relationship Specialty Start Date End Date Andrei Coon DO [address] [place] [address] [email or web address] PCP - General Family Medicine 01/08/19 01/03/20 Lupis Copeland MD [address] [place] [address] [email or web address] PCP - General Family Medicine 01/04/20 06/09/20 Gordon Moralez MD [address] [place] [address] Saji [email or web address] PCP - General 06/10/20 07/22/20 Ja Holley MD [address] [place] [address], [address] [place] [address] PCP - General Internal Medicine 07/23/20 Emile Blake MD [address] [place] [address] Gastroenterology 10/31/18 Frank Mak MD [address] [place] [address], [address] [place] [address] [email or web address] Physical Medicine and Rehabilitation 11/14/20 [place] [address] Psychiatry 02/01/21 10/07/22 Rosalia Vargas, RN [address] [place] [address] [email or web address] iCMP Video Production Engineer 02/12/21 03/10/21 Jamari Ellison DO [address] [place] [address] Orthopedics & Sports Medicine, [facility] [place] [address] Orthopedic Surgery 07/24/21 Fredi Unger MD [address] [place] [address] Ophthalmology 07/24/21 Elroy Calderon MD [address] [place] [address], [address] [place] [address] Urology 10/27/21 Ja Holley MD [address] [place] [address], [address] [place] [address] [email or web address] Insurance Assigned Provider 05/28/23 Bartolo Morgan MD [address] [place] [address] Psychiatry 10/08/22 Molly Spring RN [address] [place] [address] [email or web address] Video Production Engineer 02/07/23 10/07/24 Criss Cosme [address] [place] [address] [email or web address] [facility] Community Health Worker 03/29/23 03/29/23 Maximino Dorado MD, PhD [address] [place] [address] [email or web address] Radiation Oncology 05/03/23 Maximino Dorado MD, PhD [address] [place] [address] [email or web address] Radiation Oncology 06/01/23 06/25/23 Lincoln Thomson MD [address] [place] [address], 2[address] [place] [address] [email or web address] Physical Medicine and Rehabilitation 06/26/23 Dhaval Slater MD [address] [place] [address] [place] [address] Neurosurgery 07/07/23 documented as of this encounter Additional Source Comments The information contained in this document represents components of the legal health record. It is not the complete legal health record.[facility]
--- OUTSIDE RECORDS SUMMARY | 2024-11-23 13:03 | XMS_ITS | Encounter Summary ---
Author Organization [facility] Address [address] [place] [address] Phone Care Team Providers Care Assistant Technician Name Role Phone Emile Blake MD Unavailable [phone] Ja Holley MD Primary Care Provider [phone] Frank Mak MD Unavailable Alfonzo Perkins MD Unavailable Jamari Ellison DO Unavailable [phone] Fredi Unger MD Unavailable Elroy Calderon MD Unavailable [phone] Ja Holley MD Unavailable [phone] Bartolo Morgan MD Unavailable [phone] Molly Spring RN Unavailable [email or web address] Criss Cosme Unavailable [phone] Maximino Dorado MD, PhD Unavailable [phone] Maximino Dorado MD, PhD Unavailable [phone] Lincoln Thomson MD Unavailable [phone] Dhaval Slater MD Unavailable Encounter Details Date Type Department Care Team (Late st Contact Info) Description 07/28/2021 Procedure Pass [facility], [address] [place] [address] Social History Tobacco Use Types Packs/Day Years [...] high school, GED, job training, learning the Marshallese language, technical skills, or developing parenting skills)? 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 Not on file disabled Not on file Not on file Not on file documented as of this encounter Plan of Treatment Upcoming Encounters Date Type Department Care Team (Late st Contact Info) Description 12/27/2024 1:30 PM EST Appointment Department of Radiation Oncology [address] [facility] [address] [place] [address] Lincoln Burton, CLEANING AND WASHING EQUIPMENT OPERATOR 75 [facility] ASB1-L2 [place] [address] [email or web address] 02/19/2025 3:00 PM EST Office Visit [address] [place] [address] Ja Holley MD [address] [place] [address], [address] [place] [address] 04/30/2025 10:30 AM EDT Office Visit [facility] [address] [place] [address] [place] [address] Fredi Elaine DO 22 [place] [address] 07/22/2025 9:40 AM EDT Office Visit [facility] [address] [place] [address] Dr [address]rd Floor, [address] [place] [address] Asif Araiza MD, MS [address] [place] [address], [address] [place] [address] documented as of this encounter Visit Diagnoses Not on filedocumented in this encounter Additional Health Concerns Infection Onset Date Last Indicated Resolved Time CoV-Risk 01/21/2022 01/21/2022 02/01/2022 1:32 AM EST Assessment Noted Time PHQ-9 Depression Total Score: 23 021 8:56 AM EDT PHQ-2 Depression Total Score: 6 07/24/19 21 8:56 AM EDT documented as of this encounter Care Teams Assistant Technician Relationship Specialty Start Date End Date Ja Holley MD [address] [place] [address], [address] [place] [address] PCP - General Internal Medicine 07/23/20 Emile Blake MD [address] [place] [address] [email or web address] Gastroenterology 10/31/18 Frank Mak MD [address] [place] [address], [address] [place] [address] [email or web address] Physical Medicine and Rehabilitation 11/14/20 [place] [address] [email or web address] Psychiatry 02/01/21 10/07/22 Jamari Ellison DO [address] [place] [address] Orthopedics & Sports Medicine, [place] [address] Orthopedic Surgery 07/24/21 Fredi Unger MD [address] [place] [address] Ophthalmology 07/24/21 Elroy Calderon MD [address] [place] [address], [address] [address] Urology 10/27/21 Ja Holley MD [address] [place] [address], [address] [place] [address] [email or web address] Insurance Assigned Provider 05/28/23 Bartolo Morgan MD [address] [address] Psychiatry 10/08/22 Molly Spring RN [address] [place] [address] [email or web address] Web Production Manager 02/07/23 10/07/24 Criss Cosme [address] [place] [address] [email or web address] Community Health Worker 03/29/23 03/29/23 Maximino Dorado MD, PhD [address] [place] [address] [email or web address] Radiation Oncology 05/03/23 Maximino Dorado MD, PhD [address] [place] [address] [email or web address] Radiation Oncology 06/01/23 06/25/23 Lincoln Thomson MD [address] [place] [address], [address] [place] [address] [email or web address] Physical Medicine and Rehabilitation 06/26/23 Dhaval Slater MD [address] [place] [address] Dr CALIX [address] [place] [address] Neurosurgery 07/07/23 documented as of this encounter Additional Source Comments The information contained in this document represents components of the legal health record. It is not the complete legal health record.[facility]
--- OUTSIDE RECORDS SUMMARY | 2024-11-23 13:03 | XMS_ITS | Encounter Summary ---
Author Organization [facility] Address [address] [place] [address] Phone Care Team Providers Care Hoop Machine Operator Name Role Phone Emile Blake MD Unavailable [phone] Lupis Copeland MD Primary Care Provider [phone] Gordon Moralez MD Primary Care Provider [phone] Ja Holley MD Primary Care Provider [phone] Frank Mak MD Unavailable [phone] Alfonzo Perkins MD Unavailable Rosalia Vargas RN Unavailable [phone] Jamari Ellison DO Unavailable [phone] Fredi Unger MD Unavailable Elroy Calderon MD Unavailable [phone] Ja Holley MD Unavailable [phone] Bartolo Morgan MD Unavailable [phone] Molly Spring RN Unavailable [email or web address] Criss Cosme Unavailable [phone] Maximino Dorado MD, PhD Unavailable [phone] Maximino Dorado MD, PhD Unavailable [phone] Lincoln Thomson MD Unavailable [phone] Dhaval Slater MD Unavailable Encounter Details Date Type Department Care Team (Late Contact Info) Description 05/27/2020 Ancillary Orders Virtual Department 30 [place] [address] Ewa Reza [place] [address] [address] Acquired cyst of kidney Social History Tobacco Use Types Packs/Day Years [...] PM EST Appointment Department of Radiation Oncology [address] [place] [address] Lincoln Burton, BRINE TANK OPERATOR [address] [place] [address] [email or web address] 02/19/2025 3:00 PM EST Office Visit [facility] [address] [place] [address] [place] [address] Ja Holley MD 22 [facility], [address] [place] [address] 04/30/2025 10:30 AM EDT Office Visit [facility] [address] [place] [address] [place] [address] Fredi Elaine DO 22 [place] [address] 07/22/2025 9:40 AM EDT Office Visit [facility] 22 [facility] 3rd Floor, [address] [place] [address] Asif Araiza MD, MS 22 [facility], [address] [place] [address] documented as of this encounter Results * US Kidneys (06/10/2020 9:26 AM EDT) Anatomical Region Laterality Modality Abdomen, Kidney Ultrasound 06/10/2020 9:32 AM EDT Impressions 06/10/2020 9:46 AM EDT Benign-appearing small bilateral renal cortical and parapelvic cysts as above. No acute findings. Narrative 06/10/2020 9:46 AM EDT COMPARISON: CT abdomen pelvis 03/08/2017. RENAL ULTRASOUND FINDINGS: Right Kidney: measures 12 x 7 cm. No hydronephrosis, masses or calculi. 1.9 cm upper interpolar cyst with echogenic focus in the wall which which may represent calcification but no CT correlate. 2.6 cm mid pole parapelvic cyst with similar findings in the wall with no CT correlate. Cortical echogenicity and thickness are normal. No perinephric fluid collections. Left Kidney: measures 12 x 6 cm. No hydronephrosis, masses or calculi. 1.1 cm simple upper pole cortical cyst. 1.9 cm upper interpolar cortical cyst and a 1.4 cm lower pole parapelvic simple cyst. Cortical echogenicity and thickness are normal. No perinephric fluid collections. Procedure Note Ja Leblanc MD - 06/10/2020 COMPARISON: CT abdomen pelvis 03/08/2017. RENAL ULTRASOUND FINDINGS: Right Kidney: measures 12 x 7 cm. No hydronephrosis, masses or calculi.1.9 cm upper interpolar cyst with echogenic focus in the wall which whichmay represent calcification but no CT correlate. 2.6 cm mid poleparapelvic cyst with similar findings in the wall with no CT correlate.Cortical echogenicity and thickness are normal. No perinephric fluidcollections. Left Kidney: measures 12 x 6 cm. No hydronephrosis, masses or calculi.1.1 cm simple upper pole cortical cyst. 1.9 cm upper interpolar corticalcyst and a 1.4 cm lower pole parapelvic simple cyst. Cortical echogenicityand thickness are normal. No perinephric fluid collections. IMPRESSION: Benign-appearing small bilateral renal cortical and parapelvic cysts asabove. No acute findings. Ewa [facility] RENAL Final Result documented in this encounter Visit Diagnoses Diagnosis Acquired cyst of kidney Acquired cyst of kidney documented in this encounter Additional Health Concerns Infection Onset Date Last Indicated Resolved Time CoV-Exposed Comment:Recent close contact documented in the COVID-19 PCR/PRO order 12/04/2020 12/18/2020 12/19/2020 1:25 AM E DT CoV-Risk 01/21/2022 01/21/2022 02/01/2022 1:32 AM EST documented as of this encounter Care Teams Hoop Machine Operator Relationship Specialty Start Date End Date Lupis Copeland MD [address] [place] [address] [email or web address] PCP - General Family Medicine 01/04/20 06/09/20 Gordon Moralez MD [address] [place] [address] Saji [email or web address] PCP - General 06/10/20 07/22/20 Ja Holley MD [address] [place] [address], [address] [place] [address] PCP - General Internal Medicine 07/23/20 Emile Blake MD [address] [place] [address] Gastroenterology 10/31/18 Frank Mak MD [address] [place] [address], [address] [place] [address] [email or web address] Physical Medicine and Rehabilitation 11/14/20 [place] [address] Psychiatry 02/01/21 10/07/22 Rosalia Vargas RN 30 [place] [address] [email or web address] Claim Administrator 02/12/21 03/10/21 Jamari Ellison DO [address] [place] [address] Orthopedics & Sports Medicine, [place] [address] Orthopedic Surgery 07/24/21 Fredi Unger MD [address] [place] [address] Ophthalmology 07/24/21 Elroy Calderon MD [address] [place] [address], [address] [place] [address] Urology 10/27/21 Ja Holley MD [address] [place] [address], [address] [place] [address] [email or web address] Insurance Assigned Provider 05/28/23 Bartolo Morgan MD [address] [address] Psychiatry 10/08/22 Molly Spring RN [address] [address] [email or web address] Claim Administrator 02/07/23 10/07/24 Criss Cosme [address] [place] [address] [email or web address] [facility] Community Health Worker 03/29/23 03/29/23 Maximino Dorado MD, PhD [address] [place] [address] [email or web address] Radiation Oncology 05/03/23 Maximino Dorado MD, PhD [address] [place] [address] [email or web address] Radiation Oncology 06/01/23 06/25/23 Lincoln Thomson MD [address] [place] [address], [address] [place] [address] [email or web address] Physical Medicine and Rehabilitation 06/26/23 Dhaval Slater MD [address] [place] [address] Dr CALIX [address] [place] [address] Neurosurgery 07/07/23 documented as of this encounter Additional Source Comments The information contained in this document represents components of the legal health record. It is not the complete legal health record.[facility]
--- OUTSIDE RECORDS SUMMARY | 2024-11-23 13:03 | XMS_ITS | Encounter Summary ---
Author Organization [facility] Address [address] [place] [address] Phone Care Team Providers Care Floor Tech Name Role Phone Emile Blake MD Unavailable Andrei Coon DO Primary Care Provider Lupis Copeland MD Primary Care Provider Gordon Moralez MD Primary Care Provider [phone] Ja Holley MD Primary Care Provider [phone] Frank Mak MD Unavailable Alfonzo Perkins MD Unavailable oRsalia Vargas RN Unavailable [phone] Jamari Ellison DO Unavailable Fredi Unger MD Unavailable Elroy Calderon MD Unavailable [phone] Ja Holley MD Unavailable Bartolo Morgan MD Unavailable [phone] Molly [place] RN Unavailable [email or web address] Criss Cosme Unavailable [phone] Maximino Dorado MD, PhD Unavailable [phone] Maximino Dorado MD, PhD Unavailable [phone] Lincoln Thomson MD Unavailable Dhaval Slater MD Unavailable Reason for Referral * MRI/CAT Scan - Closed Specialty Diagnoses / Procedures Referred By Glory pablo Referred To Contact Radiology Diagnoses Spondylosis Lumbar radiculopathy Procedures MRI Lumbar Spine Frank Finney PA Phone: tel: Referral ID Status Reason Start Date Expiration Date Visits Re quested Visits Authorized [id number] Closed 12/04/2019 12/03/2020 1 1 Encounter Details Date Type Department Care Team (Latest Contact Info) Description 12/04/2019 Ancillary Orders Virtual Department [address] [place] [address] Frank Finney PA 16 [facility] John 1 [place] [address] Spondylosis; Lumbar radiculopathy Social History Tobacco Use Types Packs/Day Years [...] EST Appointment Department of Radiation Oncology [address] [place] [address] Lincoln Burton, CLIMATOLOGY PROFESSOR [address] [place] [address] [email or web address] 02/19/2025 3:00 PM EST Office Visit [address] [place] [address] Ja Holley MD [address] [place] [address], [address] [place] [address] 04/30/2025 10:30 AM EDT Office Visit [facility] [address] [place] [address] Fredi Elaine DO 22 [place] [address] 07/22/2025 9:40 AM EDT Office Visit [facility] [address] [facility] 3rd Floor, [address] [place] [address] Asif Araiza MD, MS 22 [facility], [address] [place] [address] documented as of this encounter Results * MRI LUMBAR SPINE (NEURO) WITHOUT CONTRAST (12/11/2019 6:23 PM EDT) Anatomical Region Laterality Modality L-spine Magnetic Resonan ce 12/11/2019 6:41 PM EDT Impressions 12/11/2019 7:04 PM EDT 1. Diffuse degenerative disc disease. 2. Mild right L2 neural foraminal narrowing. 3. Central disc protrusion at L4-5. Bilateral L4 neural foraminal stenosis. 4. Mild L5-S1 spinal canal narrowing and mild right L5 neural foraminal narrowing. 5. Bilateral renal cysts, larger on the right. The right-sided cyst has increased in size compared to the 2010 lumbar spine MRI. POS - [facility]-RWVX Narrative 12/11/2019 7:04 PM EDT HISTORY: Spondylosis. Lumbar radiculopathy. TECHNIQUE: Exam performed on a 1.5 Elena high-field MRI scanner. Sagittal T1, T2 and STIR, axial T1 and T2 sequences were obtained. COMPARISON: 07/23/2009 FINDINGS: There is 6 mm of retrolisthesis of L2 on L3. There is 6 mm of anterolisthesis of L5 on S1. L1-2: There is disc space narrowing and anterior osteophytic spurring. There is no significant spinal canal or neural foraminal stenosis. L2-3: There is disc space narrowing and osteophytic spurring. There is mild right L2 neural foraminal narrowing. There is no significant spinal canal or left L2 neural foraminal stenosis. L3-4: There is mild facet hypertrophy. There is no significant spinal canal or neural foraminal stenosis. L4-5: There is disc space narrowing, degenerative endplate change and marrow edema. There is a central disc protrusion that indents the ventral margin of the thecal sac. There is bilateral L4 neural foraminal stenosis. L5-S1: There is bilateral facet hypertrophy. There is broad osteophytic spurring that indents the ventral margin of the thecal sac and mildly narrows the spinal canal. There is mild right L5 neural foraminal narrowing. The left L5 neural foramen is patent. Imaged portions of the aorta and iliac vessels are unremarkable. There is incompletely imaged cyst in the lower pole of the right kidney. It measures at least 2 x 5 cm. No suspicious features are identified. There is a 7 mm incompletely imaged cyst in the left kidney. Procedure Note Simón Aguilar MD - 12/11/2019 HISTORY: Spondylosis. Lumbar radiculopathy. TECHNIQUE: Exam performed on a 1.5 Elena high-field MRI scanner. SagittalT1, T2 and STIR, axial T1 and T2 sequences were obtained. COMPARISON: 07/23/2009 FINDINGS: There is 6 mm of retrolisthesis of L2 on L3. There is 6 mm ofanterolisthesis of L5 on S1. L1-2: There is disc space narrowing and anterior osteophytic spurring.There is no significant spinal canal or neural foraminal stenosis. L2-3: There is disc space narrowing and osteophytic spurring. There ismild right L2 neural foraminal narrowing. There is no significant spinalcanal or left L2 neural foraminal stenosis. L3-4: There is mild facet hypertrophy. There is no significant spinalcanal or neural foraminal stenosis. L4-5: There is disc space narrowing, degenerative endplate change andmarrow edema. There is a central disc protrusion that indents the ventralmargin of the thecal sac. There is bilateral L4 neural foraminalstenosis. L5-S1: There is bilateral facet hypertrophy. There is broad osteophyticspurring that indents the ventral margin of the thecal sac and mildlynarrows the spinal canal. There is mild right L5 neural foraminalnarrowing. The left L5 neural foramen is patent. Imaged portions of the aorta and iliac vessels are unremarkable. There isincompletely imaged cyst in the lower pole of the right kidney. Itmeasures at least 2 x 5 cm. No suspicious features are identified. Thereis a 7 mm incompletely imaged cyst in the left kidney. IMPRESSION: 1. Diffuse degenerative disc disease. 2. Mild right L2 neural foraminal narrowing. 3. Central disc protrusion at L4-5. Bilateral L4 neural foraminalstenosis. 4. Mild L5-S1 spinal canal narrowing and mild right L5 neural foraminalnarrowing. 5. Bilateral renal cysts, larger on the right. The right-sided cyst hasincreased in size compared to the 2010 lumbar spine MRI. POS - [facility]-RWVX Frank SALES IMG MR XSPECIALTY Final Result documented in this encounter Visit Diagnoses Diagnosis Spondylosis Spondylosis of unspecified site without mention of myelopathy Lumbar radiculopathy Thoracic or lumbosacral neuritis or radiculitis, unspecified Spondylosis Spondylosis of unspecified site without mention of myelopathy Lumbar radiculopathy Thoracic or lumbosacral neuritis or radiculitis, unspecified documented in this encounter Additional Health Concerns Infection Onset Date Last Indicated Resolved Time CoV-Exposed Comment:Recent close contact documented in the COVID-19 PCR/PRO order 12/04/2020 12/18/2020 12/19/2020 1:25 AM E DT CoV-Risk 01/21/2022 01/21/2022 02/01/2022 1:32 AM EST documented as of this encounter Care Teams Floor Tech Relationship Specialty Start Date End Date Andrei Coon DO [address] [place] [address] [email or web address] PCP - General Family Medicine 01/08/19 01/03/20 Lupis Copeland MD [address] [place] [address] [email or web address] PCP - General Family Medicine 01/04/20 06/09/20 Gordon Moralez MD [address] [address] [email or web address] PCP - General 06/10/20 07/22/20 Ja Holley MD [address] [facility], [address] [place] [address] PCP - General Internal Medicine 07/23/20 Emile Blake MD [address] [place] [address] Gastroenterology 10/31/18 Frank Mak MD [address] [place] [address], [address] [place] [address] [email or web address] Physical Medicine and Rehabilitation 11/14/20 [place] [address] Psychiatry 02/01/21 10/07/22 Rosalia Vargas RN 30 [place] [address] iCMP Rope Coiling Machine Operator 02/12/21 03/10/21 Jamari Ellison DO [address] [place] [address] [facility] [place] [address] [email or web address] Orthopedic Surgery 07/24/21 Fredi Unger MD [address] [place] [address] 2 [place] [address] Ophthalmology 07/24/21 Elroy Calderon MD [address] [place] [address], [address] [place] [address] [email or web address] Urology 10/27/21 Ja Holley MD [address] [place] [address], [address] [place] [address] [email or web address] Insurance Assigned Provider 05/28/23 Bartolo Morgan MD [address] [place] [address] Psychiatry 10/08/22 Molly [place] RN [address] [place] [address] [email or web address] Rope Coiling Machine Operator 02/07/23 10/07/24 Criss Cosme [address] [place] [address] [email or web address] [facility] Community Health Worker 03/29/23 03/29/23 Maximino Dorado MD, PhD [address] [place] [address] [email or web address] Radiation Oncology 05/03/23 Maximino Dorado MD, PhD [address] [place] [address] [email or web address] Radiation Oncology 06/01/23 06/25/23 Lincoln Thomson MD [address] [facility], 2nd [place] [address] [email or web address] Physical Medicine and Rehabilitation 06/26/23 Dhaval Slater MD [address] [place] [address] [place] [address] Neurosurgery 07/07/23 documented as of this encounter Additional Source Comments The information contained in this document represents components of the legal health record. It is not the complete legal health record.[facility]
--- OUTSIDE RECORDS SUMMARY | 2024-11-23 13:03 | XMS_ITS | Encounter Summary ---
Author Organization [facility] Address [address] [place] [address] Phone Care Team Providers Care Orthopedic Coder Name Role Phone Emile Blake MD Unavailable [phone] Ja Holley MD Primary Care Provider [phone] Frank Mak MD Unavailable Alfonzo Perkins MD Unavailable Rosalia Vargas RN Unavailable [phone] Jamari Ellison DO Unavailable [phone] Fredi Unger MD Unavailable Elroy Calderon MD Unavailable [phone] Ja Holley MD Unavailable [phone] Bartolo Morgan MD Unavailable [phone] Molly [place] RN Unavailable [email or web address] Criss Cosme Unavailable [phone] Maximino Dorado MD, PhD Unavailable [phone] Maximino Dorado MD, PhD Unavailable [phone] Lincoln Thomson MD Unavailable [phone] Dhaval Slater MD Unavailable Encounter Details Date Type Department Care Team (Latest Contact Info) Description 10/21/2020 Prep for Surgery [facility] General Surgical Care [address] [place] [address] Monique Cuenca MD 15 [facility], 2nd [place] [address] [email or web address] Non-recurrent unilateral inguinal hernia without obstruction or gangrene (Primary Dx); Umbilical hernia, incarcerated Social History Tobacco Use Types Packs/Day Years [...] high school, GED, job training, learning the Togolese language, technical skills, or developing parenting skills)? [...] your housing situation today? 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 Not on file Not on file Not on file documented as of this encounter Plan of Treatment Upcoming Encounters Date Type Department Care Team (Late st Contact Info) Description 12/27/2024 1:30 PM EST Appointment Department of Radiation Oncology [address] [place] [address] Lincoln Burton, MABLE [address] [place] [address] [email or web address] 02/19/2025 3:00 PM EST Office Visit [facility] [address] [place] [address] Ja Holley MD [address] [place] [address], [address] [place] [address] 04/30/2025 10:30 AM EDT Office Visit [facility] [address] [place] [address] Fredi Elaine DO [address] [place] [address] 07/22/2025 9:40 AM EDT Office Visit [facility] [address] [place] [address] 3rd Floor, [address] [place] [address] Asif Araiza MD, MS [address] [place] [address], [address] [address] documented as of this encounter Visit Diagnoses Diagnosis Non-recurrent unilateral inguinal hernia without obstruction or gangrene- Primary Umbilical hernia, incarcerated Umbilical hernia with obstruction documented in this encounter Additional Health Concerns Infection Onset Date Last Indicated Resolved Time CoV-Exposed Comment:Recent close contact documented in the COVID-19 PCR/PRO order 12/04/2020 12/18/2020 12/19/2020 1:25 AM E DT CoV-Risk 01/21/2022 01/21/2022 02/01/2022 1:32 AM EST Assessment Noted Time PHQ-9 Depression Total Score: 23 021 8:56 AM EDT PHQ-2 Depression Total Score: 07/24/19 21 8:56 AM EDT documented as of this encounter Care Teams Orthopedic Coder Relationship Specialty Start Date End Date Ja Holley MD [address] [place] [address], [address] [place] [address] PCP - General Internal Medicine 07/23/20 Emile Blake MD [address] [place] [address] Gastroenterology 10/31/18 Frank Mak MD [address] [place] [address], [address] [place] [address] [email or web address] Physical Medicine and Rehabilitation 11/14/20 [place] [address] Psychiatry 02/01/21 10/07/22 Rosalia Vargas RN 30 [place] [address] iCMP Unix Administrator 02/12/21 03/10/21 Jamari Ellison DO [address] [place] [address] [facility] Sports [facility], [place] [address] [email or web address] Orthopedic Surgery 07/24/21 Fredi Unger MD [address] [place] [address] 2 [place] [address] Ophthalmology 07/24/21 Elroy Calderon MD [address] [place] [address], [address] [place] [address] [email or web address] Urology 10/27/21 Ja Holley MD [address] [place] [address], [address] [place] [address] [email or web address] Insurance Assigned Provider 05/28/23 Bartolo Morgan MD [address] [place] [address] Psychiatry 10/08/22 Molly [place] RN [address] [place] [address] [email or web address] Administrator 02/07/23 10/07/24 Criss Cosme 10 [place] [address] [email or web address] [facility] Community Health Worker 03/29/23 03/29/23 Maximino Dorado MD, PhD [address] [place] [address] [email or web address] Radiation Oncology 05/03/23 Maximino Dorado MD, PhD [address] [place] [address] [email or web address] Radiation Oncology 06/01/23 06/25/23 Lincoln Thomson MD [address] [place] [address], 2nd [place] [address] [email or web address] Physical Medicine and Rehabilitation 06/26/23 Dhaval Slater MD [address] [place] [address] [place] [address] Neurosurgery 07/07/23 documented as of this encounter Additional Source Comments The information contained in this document represents components of the legal health record. It is not the complete legal health record.[facility]
--- OUTSIDE RECORDS SUMMARY | 2024-11-23 13:03 | XMS_ITS | Encounter Summary ---
Author Organization [facility] Address [address] [place] [address] Phone Care Team Providers Care Linen Room Supervisor Name Role Phone Emile Blake MD Unavailable [phone] Ja Holley MD Primary Care Provider + [phone] Frank Mak MD Unavailable [phone] Jamari Ellison DO Unavailable [phone] Fredi Unger MD Unavailable [phone] Elroy Calderon MD Unavailable [phone] Ja Holley MD Unavailable [phone] Bartolo Morgan MD Unavailable [phone] Molly [place] RN Unavailable [email or web address] Maximino Dorado MD, PhD Unavailable [phone] Maximino Dorado MD, PhD Unavailable [phone] Lincoln Thomson MD Unavailable [phone] Dhaval Slater MD Unavailable Encounter Details Date Type Department Care Team (Late st Contact Info) Description 06/13/2023 Procedure Pass [address] [place] [address] Social History Tobacco Use Types Packs/Day Years [...] your housing situation today? 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 file Not on file Not on file documented as of this encounter Last Filed Vital Signs Vital Sign Reading Time Taken Comments Blood Pressure - - Pulse - - Temperature - - Respiratory Rate - - Oxygen Saturation - - Inhaled Oxygen Concentration - - Weight 87.1 kg (192 lb) 06/15/2023 5:36 PM EDT Height 180.3 cm (5' 11 ) 06/15/2023 5:36 PM EDT Body Mass Index 26.78 06/15/2023 5:36 PM EDT documented in this encounter Plan of Treatment Upcoming Encounters Date Type Department Care Team (Late st Contact Info) Description 12/27/2024 1:30 PM EST Appointment Department of Radiation Oncology [address] [place] [address] Lincoln Burton, MABLE [address] [place] [address] [email or web address] 02/19/2025 3:00 PM EST Office Visit [facility] Medicine [address] [place] [address] Ja Holley MD [address] [place] [address], [address] [place] [address] 04/30/2025 10:30 AM EDT Office Visit [facility] [address] [place] [address] Fredi Elaine DO [address] [place] [address] 07/22/2025 9:40 AM EDT Office Visit [facility] [address] [place] [address] [address]rd Floor, [address] [place] [address] Asif Araiza MD, MS [address] [place] [address], [address] [address] documented as of this encounter Visit Diagnoses Not on filedocumented in this encounter Additional Health Concerns Assessment Noted Time PHQ-9 Depression Total Score: 24 024 12:44 PM EDT PHQ-2 Depression Total Score: 6 06/01/19 24 12:44 PM EDT documented as of this encounter Care Teams Linen Room Supervisor Relationship Specialty Start Date End Date Ja Holley MD [address] [place] [address], [address] [place] [address] PCP - General Internal Medicine 07/23/20 Emile Blake MD [address] [place] [address] Gastroenterology 10/31/18 Frank Mak MD [address] [place] [address], [address] [place] [address] [email or web address] Physical Medicine and Rehabilitation 11/14/20 Jamari Ellison DO [address] [place] [address] Orthopedics & Sports Medicine, [place] [address] Orthopedic Surgery 07/24/21 Fredi Unger MD [address] [place] [address] Ophthalmology 07/24/21 Elroy Calderon MD [address] [place] [address], [address] [place] [address] Urology 10/27/21 Ja Holley MD [address] [place] [address], [address] [place] [address] Insurance Assigned Provider 05/28/23 Bartolo Morgan MD [address] [address] Psychiatry 10/08/22 Molly [place] RN [address] [address] [email or web address] Marine Resource Economist 02/07/23 10/07/24 Maximino Dorado MD, PhD [address] [place] [address] [email or web address] Radiation Oncology 05/03/23 Maximino Dorado MD, PhD [address] [place] [address] [email or web address] Radiation Oncology 06/01/23 06/25/23 Lincoln Thomson MD [address] [place] [address], 2nd [place] [address] [email or web address] Physical Medicine and Rehabilitation 06/26/23 Dhaval Slater MD [address] [place] [address] [place] [address] Neurosurgery 07/07/23 documented as of this encounter Additional Source Comments The information contained in this document represents components of the legal health record. It is not the complete legal health record.[facility]
--- OUTSIDE RECORDS SUMMARY | 2024-11-23 13:03 | XMS_ITS ---
Author Organization [facility] Address [address] [place] [address] Phone Care Team Providers Care Filler Picker Name Role Phone Emile Blake MD Unavailable Ja Holley MD Primary Care Provider [phone] Frank Mak MD Unavailable [phone] Jamari Ellison DO Unavailable Fredi Unger MD Unavailable Elroy Calderon MD Unavailable [phone] Ja Holley MD Unavailable Bartolo Morgan MD Unavailable Maximino Dorado MD, PhD Unavailable Lincoln Thomson MD Unavailable Dhaval Slater MD Unavailable Active Problems Problem Noted Date Diagnosed Date [...] current pain management regimen. -Consider consultation with painting supervisor for further evaluation and treatment options. Assessment [...] him for planning to work with the [facility] pain clinic which I think is likely [...] to have a left knee replacement at [facility]. He will likely need a preop with me prior. Assessment & Plan (07/24/2021 10:15 AM EDT): Follow-up as planned with orthopedics he is planning to discuss possible knee replacement surgery Assessment & Plan (06/18/2021 9:19 AM EDT): Patient is considering total knee replacement. Asked him to follow-up with orthopedics. He is considering seeing an orthopedist at [facility] for Vitamin D deficiency 03/30/2021 Assessment & [...] and exercise and he has seen the pneumatic tube operator and has learned a great deal and [...] does have diabetes. He will see a perioperative educator today and continue working on his [...] disease progressing. April 2023 started brachytherapy at [facility] Assessment & Plan (11/01/2024 3:26 PM EDT): [...] Considering having intermittent radium seeds implanted in [place]. Follow-up as planned with radiation oncology. Assessment [...] considering. No follow-up as planned with the [place] pain clinic. Degenerative disc disease, cervical 09/25/2020 [...] treated prejudicially and was never accepted to [employer]. He did study medicine in [...] also asked him to start services with [facility]. Assessment & Plan (11/14/2020 12:50 PM EDT): [...] to try and establish care longitudinally with [facility] or [facility], and while awaiting for this [...] that continued treatments will help in this pr intern I expect will help his blood [...] clinical support options, I recommend he contact [facility], [facility], or service net and get on their [...] for him to see someone through the [facility]. There is only brief comment [...] his 20s. Managed by Dr. Finney at [facility]. MRI lumbar spine November [...] treatment options with implantable devices with the [facility] pain clinic. Follow-up as scheduled. Assessment [...] ibuprofen with acetaminophen. Follow-up as planned with [facility], considering another steroid injection. [...] to look into getting involved with the [place] functional druze program. I think this is a very [...] Calderon. He will follow-up as scheduled with [facility] pain Assessment & Plan (12/26/2020 10:02 AM [...] observed postoperatively for possible hypoventilation. Insomnia 09/19/2008 Current Treatment and Therapy Plans No current plan information found. Past Treatment and Therapy Plans No past plan information found. Radiation Treatments * Course C1 05/16/2023 - 05/26/2023 Treatment Period Energy Fraction Dose Fractions Total Dose Plans Planned C1A1F2 05/26/2023 - 05/26/2023 1,350 cGy 1,350 cGy C1A1F1^C1A1F1 05/16/2023 - 05/16/2023 1,350 cGy 1,350 cGy Reference Points Delivered Brachy 05/16/2023 - 05/26/2023 2,700 cGy Ci*s 05/16/2023 - 05/26/2023 7,061 cGy Resolved Problems Problem Noted Date Diagnosed Date [...] He will try to do this at [facility] I did inform him this can take up to a year. Vertigo 02/28/2024 09/10/2024 Abnormal LFTs 02/28/2024 02/28/2024 Asthma 02/28/2024 02/28/2024 Benign prostatic hyperplasia with urinary obstruction 02/28/2024 02/28/2024 Benign prostatic hyperplasia 02/28/2024 02/28/2024 Blepharitis, bilateral 02/28/202402/27 Carpal tunnel syndrome 02/28/202402/27 Constipation 02/28/2024 02/28/2024 Decreased liver function 02/28/202408/2024 FH: prostate cancer 02/28/2024 03/22/19 Osteoarthritis of knee 02/28/202411/01 Overview (02/28/2024): DR [...] a DXA scan that was done at [facility] on 10/03/2020 his T-scores are all in [...] radiculopathy 12/10/2008 025 Overview (02/28/2024): Dr Rodriguez, [facility]
--- OUTSIDE RECORDS SUMMARY | 2024-11-23 13:03 | XMS_ITS | Encounter Summary ---
Author Organization [facility] Address [address] [place] [address] Phone Care Team Providers Care Power Shear Operator Name Role Phone Emile Blake MD Unavailable Andrei Coon DO Primary Care Provider Lupis Copeland MD Primary Care Provider Gordon Moralez MD Primary Care Provider [phone] Ja Holley MD Primary Care Provider [phone] Frank Mak MD Unavailable Alfonzo Perkins MD Unavailable Rosalia Vargas RN Unavailable [phone] Jamari Ellison DO Unavailable Fredi Unger MD Unavailable Elroy Calderon MD Unavailable [phone] Ja Holley MD Unavailable Bartolo Morgan MD Unavailable [phone] Molly Spring RN Unavailable [email or web address] Criss Cosme Unavailable Maximino Dorado MD, PhD Unavailable [phone] Maximino Dorado MD, PhD Unavailable [phone] Lincoln Thomson MD Unavailable Dhaval Slater MD Unavailable Encounter Details Date Type Department Care Team (Late st Contact Info) Description 12/04/2019 Procedure Pass [facility] - [address] [address] Social History Tobacco Use Types Packs/Day Years [...] - Inhaled Oxygen Concentration - - Weight 81.6 kg (180 lb) 12/06/2019 1:09 PM EDT Height 185.4 cm (6' 1 ) 12/06/2019 1:09 PM EDT Body Mass Index 23.75 12/06/2019 1:09 PM EDT documented in this encounter Plan of Treatment Upcoming Encounters Date Type Department Care Team (Late st Contact Info) Description 12/27/2024 1:30 PM EST Appointment Department of Radiation Oncology [address] [place] [address] Lincoln Burton, CONTROL CLERK HEAD [address] [place] [address] [email or web address] 02/19/2025 3:00 PM EST Office Visit [address] [address] Ja Holley MD [address] [place] [address], [address] [place] [address] 04/30/2025 10:30 AM EDT Office Visit [facility] [place] [address] Fredi Elaine DO [address] [place] [address] 07/22/2025 9:40 AM EDT Office Visit [facility] [address] [facility] 3rd Floor, [address] [place] [address] Asif Araiza MD, MS 22 [facility], [address] [place] [address] [email or web address] documented as of this encounter Visit Diagnoses Not on filedocumented in this encounter Additional Health Concerns Infection Onset Date Last Indicated Resolved Time CoV-Exposed Comment:Recent close contact documented in the COVID-19 PCR/PRO order 12/04/2020 12/18/2020 12/19/2020 1:25 AM E DT CoV-Risk 01/21/2022 01/21/2022 02/01/2022 1:32 AM EST documented as of this encounter Care Teams Power Shear Operator Relationship Specialty Start Date End Date Andrei Coon DO [address] [place] [address] [email or web address] PCP - General Family Medicine 01/08/19 01/03/20 Lupis Copeland MD [address] [place] [address] [email or web address] PCP - General Family Medicine 01/04/20 06/09/20 Gordon Moralez MD [address] [address] [email or web address] PCP - General 06/10/20 07/22/20 Ja Holley MD [address] [place] [address], [address] [place] [address] PCP - General Internal Medicine 07/23/20 Emile Blake MD [address] [place] [address] Gastroenterology 10/31/18 Frank Mak MD [address] [place] [address], [address] [place] [address] [email or web address] Physical Medicine and Rehabilitation 11/14/20 [place] [address] Psychiatry 02/01/21 10/07/22 Rosalia Vargas, RN [address] [place] [address] [email or web address] Bike Mechanic 02/12/21 03/10/21 Jamari Ellison DO [address] [place] [address] Orthopedics & Sports Medicine, [place] [address] Orthopedic Surgery 07/24/21 Fredi Unger MD [address] [place] [address] Ophthalmology 07/24/21 Elroy Calderon MD [address] [place] [address], [address] [place] [address] Urology 10/27/21 Ja Holley MD [address] [place] [address], [address] [place] [address] [email or web address] Insurance Assigned Provider 05/28/23 Bartolo Morgan MD [address] [place] [address] Psychiatry 10/08/22 Molly Spring RN [address] [place] [address] [email or web address] B[facility] Mechanic 02/07/23 10/07/24 Criss Cosme [address] [place] [address] [email or web address] [facility] Community Health Worker 03/29/23 03/29/23 Maximino Dorado MD, PhD [address] [place] [address] [email or web address] Radiation Oncology 05/03/23 Maximino Dorado MD, PhD [address] [place] [address] [email or web address] Radiation Oncology 06/01/23 06/25/23 Lincoln Thomson MD [address] [place] [address], 2nd [place] [address] [email or web address] Physical Medicine and Rehabilitation 06/26/23 Dhaval Slater MD [address] [place] [address] Dr CALIX [address] [place] [address] Neurosurgery 07/07/23 documented as of this encounter Additional Source Comments The information contained in this document represents components of the legal health record. It is not the complete legal health record.[facility]
--- OUTSIDE RECORDS SUMMARY | 2024-11-23 13:03 | XMS_ITS | Encounter Summary ---
Author Organization [facility] Address [address] [place] [address] Phone Care Team Providers Care Radio Program Checker Name Role Phone Emile Blake MD Unavailable [phone] Ja oHlley MD Primary Care Provider + [phone] Frank Mak MD Unavailable [phone] Jamari Ellison DO Unavailable [phone] Fredi Unger MD Unavailable [phone] Elroy Calderon MD Unavailable [phone] Ja Holley MD Unavailable [phone] Bartolo Morgan MD Unavailable [phone] Molly Spring RN Unavailable [email or web address] Criss Cosme Unavailable [phone] Maximino Dorado MD, PhD Unavailable [phone] Maximino Dorado MD, PhD Unavailable [phone] Lincoln Thomson MD Unavailable [phone] Dhaval Slater MD Unavailable Encounter Details Date Type Department Care Team (Late st Contact Info) Description 12/21/2022 Procedure Pass [facility], [address] [place] [address] Social History Tobacco Use Types Packs/Day Years [...] 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 Not on file Not on file Not on file documented as of this encounter Plan of Treatment Upcoming Encounters Date Type Department Care Team (Late st Contact Info) Description 12/27/2024 1:30 PM EST Appointment Department of Radiation Oncology [address] [place] [address] Lincoln Burton, NEAR EASTERN ARCHAEOLOGY LECTURER [address] [facility] [place] [address] [email or web address] 02/19/2025 3:00 PM EST Office Visit [address] [place] [address] Ja Holley MD [address] [place] [address], [address] [address] 04/30/2025 10:30 AM EDT Office Visit [facility] [address] [place] [address] [place] [address] Fredi Elaine DO [address] [place] [address] 07/22/2025 9:40 AM EDT Office Visit [facility] [address] [place] [address] 3rd Floor, [address] [place] [address] Asif Araiza MD, MS [address] [place] [address], [address] [place] [address] documented as of this encounter Visit Diagnoses Not on filedocumented in this encounter Additional Health Concerns Assessment Noted Time PHQ-9 Depression Total Score: 12 023 11:21 AM EDT PHQ-2 Depression Total Score: 3 07/14/19 23 11:21 AM EDT documented as of this encounter Care Teams Radio Program Checker Relationship Specialty Start Date End Date Ja Holley MD [address] [place] [address], [address] [place] [address] PCP - General Internal Medicine 07/23/20 Emile Blake MD [address] [place] [address] Gastroenterology 10/31/18 Frank Mak MD [address] [place] [address], [address] [place] [address] [email or web address] Physical Medicine and Rehabilitation 11/14/20 Jamari Ellison DO [address] [place] [address] Orthopedics & Sports Medicine, [place] [address] Orthopedic Surgery 07/24/21 Fredi Unger MD [address] [place] [address] Ophthalmology 07/24/21 Elroy Calderon MD [address] [place] [address], [address] [place] [address] Urology 10/27/21 Ja Holley MD [address] [place] [address], [address] [place] [address] Insurance Assigned Provider 05/28/23 Bartolo Morgan MD [address] [place] [address] Psychiatry 10/08/22 Molly Spring RN [address] [place] [address] [email or web address] Nurse Practitioner 02/07/23 10/07/24 Criss Cosme [address] [place] [address] [email or web address] g [facility] Community Health Worker 03/29/23 03/29/23 Maximino Dorado MD, PhD [address] [place] [address] [email or web address] Radiation Oncology 05/03/23 Maximino Dorado MD, PhD [address] [place] [address] [email or web address] Radiation Oncology 06/01/23 06/25/23 Lincoln Thomson MD [address] [place] [address], [address] [place] [address] [email or web address] Physical Medicine and Rehabilitation 06/26/23 Dhaval Slater MD [address] [place] [address] Neurosurgery 07/07/23 documented as of this encounter Additional Source Comments The information contained in this document represents components of the legal health record. It is not the complete legal health record.[facility]
--- OUTSIDE RECORDS SUMMARY | 2024-11-23 13:03 | XMS_ITS | Encounter Summary ---
Author Organization [facility] Address [address] [place] [address] Phone Care Team Providers Care Automatic Operator Name Role Phone Emile Blake MD Unavailable [phone] Ja Holley MD Primary Care Provider + [phone] Frank Mak MD Unavailable [phone] Jamari Ellison DO Unavailable [phone] Fredi Unger MD Unavailable [phone] Elroy Calderon MD Unavailable [phone] Ja Holley MD Unavailable [phone] Bartolo Morgan MD Unavailable [phone] Molly Spring RN Unavailable [email or web address] Maximino Dorado MD, PhD Unavailable [phone] Lincoln Thomson MD Unavailable [phone] Dhaval Slater MD Unavailable Encounter Details Date Type Department Care Team (Late st Contact Info) Description 10/14/2023 Procedure Pass [facility], [address] [place] [address] Social History Tobacco Use Types Packs/Day Years [...] computer) with a working camera? 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 Not on file Not on file Not on file documented as of this encounter Last Filed Vital Signs Vital Sign Reading Time Taken Comments Blood Pressure - - Pulse - - Temperature - - Respiratory Rate - - Oxygen Saturation - - Inhaled Oxygen Concentration - - Weight 88.5 kg (195 lb) 10/14/2023 12:34 PM EDT Height 185.4 cm (6' 1 ) 10/14/2023 12:34 PM EDT Body Mass Index 25.73 10/14/2023 12:34 PM EDT documented in this encounter Plan of Treatment Upcoming Encounters Date Type Department Care Team (Late st Contact Info) Description 12/27/2024 1:30 PM EST Appointment Department of Radiation Oncology [address] [place] [address] Lincoln Burton, MABLE [address] [place] [address] [email or web address] 02/19/2025 3:00 PM EST Office Visit [facility] [address] [place] [address] Ja Holley MD [address] [place] [address], [address] [place] [address] 04/30/2025 10:30 AM EDT Office Visit [facility] [address] [place] [address] Fredi Elaine DO 22 [place] [address] 07/22/2025 9:40 AM EDT Office Visit [facility] [address], [address] [place] [address] Asif Araiza MD, MS 22 [facility], [address] [place] [address] [email or web address] documented as of this encounter Visit Diagnoses Not on filedocumented in this encounter Additional Health Concerns Assessment Noted Time PHQ-9 Depression Total Score: 23 024 3:21 PM EDT PHQ-2 Depression Total Score: 6 09/20/19 24 3:21 PM EDT documented as of this encounter Care Teams Automatic Operator Relationship Specialty Start Date End Date Ja Holley MD [address] [place] [address], [address] [place] [address] [email or web address] PCP - General Internal Medicine 07/23/20 Emile Blake MD [address] [place] [address] [email or web address] Gastroenterology 10/31/18 Frank Mak MD [address] [place] [address], [address] [place] [address] [email or web address] Physical Medicine and Rehabilitation 11/14/20 Jamari Ellison DO [address] [place] [address] [facility] [place] [address] Orthopedic Surgery 07/24/21 Fredi Unger MD [address] [place] [address] Ophthalmology 07/24/21 Elroy Calderon MD [address] [place] [address], [address] [place] [address] [place] [address] [email or web address] Urology 10/27/21 Ja Holley MD [address] [place] [address], [address] [place] [address] [email or web address] Insurance Assigned Provider 05/28/23 Bartolo Morgan MD [address] [place] [address] Psychiatry 10/08/22 Molly Spring RN [address] [place] [address] [email or web address] iCMP Game Designer/Creative Director 02/07/23 10/07/24 Maximino Dorado MD, PhD [address] [place] [address] [email or web address] Radiation Oncology 05/03/23 Lincoln Thomson MD [address] [place] [address], 2[address] [place] [address] [email or web address] Physical Medicine and Rehabilitation 06/26/23 Dhaval Slater MD [address] [place] [address] Dr CALIX [address] [place] [address] Neurosurgery 07/07/23 documented as of this encounter Additional Source Comments The information contained in this document represents components of the legal health record. It is not the complete legal health record.[facility]
--- OUTSIDE RECORDS SUMMARY | 2024-11-23 13:04 | XMS_ITS | Encounter Summary ---
Author Organization [facility] Address [address] [place] [address] Phone Care Team Providers Care Filler Sifter Helper Name Role Phone Emile Blake MD Unavailable [phone] Ja Holley MD Primary Care Provider [phone] Frank Mak MD Unavailable Alfonzo Perkins MD Unavailable Jamari Ellison DO Unavailable [phone] Fredi Unger MD Unavailable Elroy Calderon MD Unavailable [phone] Ja Holley MD Unavailable [phone] Bartolo [place] MD Unavailable [phone] Molly Spring RN Unavailable [email or web address] Criss Cosme Unavailable Maximino Dorado MD, PhD Unavailable [phone] Maximino Dorado MD, PhD Unavailable [phone] Lincoln Thomson MD Unavailable [phone] Dhaval Slater MD Unavailable Encounter Details Date Type Department Care Team (Late st Contact Info) Description 08/21/2022 Procedure Pass [facility], Ct Scan - [address] [address] Social History Tobacco Use Types Packs/Day Years [...] 07/23/2020 Digital Access Answer Date Recorded No 07/13/2022 No 07/13/2022 Reliable internet access at home? Not on file 07/13/2022 Device with a working camera? 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 Wish to be (Past 1 Month) No 08/21/2022 10:06 AM EDT Laura Underwood RN 2. Non-Specific Active Suici oral Thoughts (Past 1 Month) No 08/21/2022 10:06 AM EDT Alyse Underwood RN 6. Suicidal Behavior (Lifetime) No 10:06 AM EDT Laura Underwood RN documented as of this encounter Plan of Treatment Upcoming Encounters Date Type Department Care Team (Late st Contact Info) Description 12/27/2024 1:30 PM EST Appointment Department of Radiation Oncology [address] [place] [address] Lincoln Burton, MABLE [address] [place] [address] [email or web address] 02/19/2025 3:00 PM EST Office Visit [facility] [address] [place] [address] Ja Holley MD [address] [place] [address], [address] [place] [address] 04/30/2025 10:30 AM EDT Office Visit [facility] [address] [place] [address] [place] [address] Fredi Elaine DO [address] [place] [address] 07/22/2025 9:40 AM EDT Office Visit [facility] [address] [place] [address] 3rd Floor, [address] [place] [address] Asif Araiza MD, MS [address] [facility], [address] [place] [address] [email or web address] documented as of this encounter Visit Diagnoses Not on filedocumented in this encounter Additional Health Concerns Assessment Noted Time PHQ-9 Depression Total Score: 12 023 11:21 AM EDT PHQ-2 Depression Total Score: 3 07/14/19 23 11:21 AM EDT documented as of this encounter Care Teams Filler Sifter Helper Relationship Specialty Start Date End Date Ja Holley MD [address] [place] [address], [address] [place] [address] PCP - General Internal Medicine 07/23/20 Emile Blake MD [address] [place] [address] Gastroenterology 10/31/18 Frank Mak MD [address] [place] [address], [address] [place] [address] [email or web address] Physical Medicine and Rehabilitation 11/14/20 [place] [address] Psychiatry 02/01/21 10/07/22 Jamari Ellison DO [address] [place] [address] Orthopedics & Sports Medicine, [place] [address] [email or web address] Orthopedic Surgery 07/24/21 Fredi Unger MD [address] [place] [address] 2 [place] [address] Ophthalmology 07/24/21 Elroy Calderon MD [address] [place] [address], [address] [place] [address] [email or web address] Urology 10/27/21 Ja Holley MD [address] [place] [address], [address] [place] [address] [email or web address] Insurance Assigned Provider 05/28/23 Bartolo [place] MD [address] [place] [address] Psychiatry 10/08/22 Molly Spring, KATEY [address] [place] [address] [email or web address] 02/07/23 10/07/24 Criss Cosme [address] [place] [address] [email or web address] [facility] Community Health Worker 03/29/23 03/29/23 Maximino Dorado MD, PhD [address] [place] [address] [email or web address] Radiation Oncology 05/03/23 Maximino Dorado MD, PhD [address] [place] [address] [email or web address] Radiation Oncology 06/01/23 06/25/23 Lincoln Thomson MD [address] [place] [address], 2nd [place] [address] [email or web address] Physical Medicine and Rehabilitation 06/26/23 Dhaval Slater MD [address] [place] [address] [place] [address] Neurosurgery 07/07/23 documented as of this encounter Additional Source Comments The information contained in this document represents components of the legal health record. It is not the complete legal health record.[facility]
--- OUTSIDE RECORDS SUMMARY | 2024-11-23 13:04 | XMS_ITS | Encounter Summary ---
Author Organization [facility] Address [address] [facility] [address] [place] [address] Phone Care Team Providers Care Print Production Manager Name Role Phone Emile Blake MD Unavailable [phone] Ja Holley MD Primary Care Provider + [phone] Frank Mak MD Unavailable Jamari Ellison DO Unavailable [phone] Fredi Unger MD Unavailable [phone] Elroy Calderon MD Unavailable [phone] Ja Holley MD Unavailable [phone] Bartolo [place] MD Unavailable [phone] Molly Spring RN Unavailable [email or web address] Maximino Dorado MD, PhD Unavailable [phone] Lincoln Thomson MD Unavailable [phone] Dhaval Slater MD Unavailable Reason for Referral * Outpatient Procedure - Closed Specialty Diagnoses / Procedures Referred By Glory pablo Referred To Contact Radiology Diagnoses Hypertension, unspecified type Procedures US Renal Artery/ Veins Duplex Nathan Bacon MD [address] [facility] [address] [place] [address] Phone: tel: fax: [email or web address] Referral ID Status Reason Start Date Expiration Date Visits Re quested Visits Authorized [id number] Closed 03/09/2024 03/09/2025 1 1 Encounter Details Date Type Department Care Team (Latest Contact Info) Description 03/09/2024 Transcribe Orders Virtual Department [address] [place] [address] Nathan Bacon MD [address] [address] [email or web address] Hypertension, unspecified type (Primary Dx) Social History Tobacco [...] 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 Not on file Not on file Not on file documented as of this encounter Plan of Treatment Upcoming Encounters Date Type Department Care Team (Late st Contact Info) Description 12/27/2024 1:30 PM EST Appointment Department of Radiation Oncology [address] [place] [address] Lincoln Burton NP [address] [place] [address] [email or web address] 02/19/2025 3:00 PM EST Office Visit [facility] [address] [place] [address] Ja Hol[place] MD [address] [facility], [address] [place] [address] 04/30/2025 10:30 AM EDT Office Visit [facility] [address] [place] [address] Fredi Elaine DO [address] [place] [address] 07/22/2025 9:40 AM EDT Office Visit [facility] [address], [address] [place] [address] Asif Araiza MD, MS [address] [facility], [address] [place] [address] documented as of this encounter Results * US RENAL ARTERIES AND VEINS DUPLEX COMPLETE (03/16/2024 8:44 AM EST) Anatomical Region Laterality Modality Abdominal Vasculature Ultrasound 03/16/2024 8:50 AM EST Narrative 03/16/2024 10:46 AM EST US RENAL ARTERIES AND VEINS DUPLEX COMPLETE Referring clinician's provided indication for this examination in Epic: Outside Radiology Order; Hypertension, primary TECHNIQUE: A duplex ultrasound evaluation of the renal arteries and veins, was performed using a combination of bustamante scale imaging, color duplex and spectral Doppler analysis. COMPARISON: US KIDNEYS FINDINGS: Exam Quality: Technically adequate exam demonstrates: Multiple bilateral renal cysts. AORTA (cm/s) Aorta: 130 RIGHT: Kidney length: 12.1 cm Renal Artery (cm/s) Ostium: 89.2 Proximal: 159 Mid: 160 Distal: 79.7 Distal AT: 119 msec RAR: invalid Renal Vein: Patent with normal spectral Doppler waveforms. Resistance Index (RI): Upper Pole: 0.7 Mid: 0.6 Lower Pole: 0.6 Resistance Index: Normal Renal/Aortic Ratio: invalid Renal Artery Stenosis: no LEFT: Kidney length: 11.2 cm Renal Artery (cm/s) Ostium: 99.4 Proximal: 116 Mid: 118 Distal: 68.5 Distal AT: 120 msec RAR: invalid Renal Vein: Patent with normal spectral Doppler waveforms. Resistance Index (RI): Upper Pole: 0.6 Mid: 0.6 Lower Pole: 0.8 Resistance Index: Elevated Renal/Aortic Ratio: invalid Renal Artery Stenosis: no IMPRESSIONS: * No evidence of renal artery stenosis bilaterally. * Elevated resistive index in the left kidney may reflect intrinsic renal parenchymal disease. Procedure Note Anel Henley MD - 03/16/2024 US RENAL ARTERIES AND VEINS DUPLEX COMPLETE Referring clinician's provided indication for this examination in Epic:Outside Radiology Order; Hypertension, primary TECHNIQUE: A duplex ultrasound evaluation of the renal arteries and veins,was performed using a combination of bustamante scale imaging, color duplex andspectral Doppler analysis. COMPARISON: US KIDNEYS FINDINGS: Exam Quality: Technically adequate exam demonstrates: Multiple bilateralrenal cysts. AORTA (cm/s) Aorta: 130 RIGHT: Kidney length: 12.1 cm Renal Artery (cm/s) Ostium: 89.2 Proximal: 159 Mid: 160 Distal: 79.7 Distal AT: 119 msec RAR: invalid Renal Vein: Patent with normal spectral Doppler waveforms. Resistance Index (RI): Upper Pole: 0.7 Mid: 0.6 Lower Pole: 0.6 Resistance Index: Normal Renal/Aortic Ratio: invalid Renal Artery Stenosis: no LEFT: Kidney length: 11.2 cm Renal Artery (cm/s) Ostium: 99.4 Proximal: 116 Mid: 118 Distal: 68.5 Distal AT: 120 msec RAR: invalid Renal Vein: Patent with normal spectral Doppler waveforms. Resistance Index (RI): Upper Pole: 0.6 Mid: 0.6 Lower Pole: 0.8 Resistance Index: Elevated Renal/Aortic Ratio: invalid Renal Artery Stenosis: no IMPRESSIONS: * No evidence of renal artery stenosis bilaterally. * Elevated resistive index in the left kidney may reflect intrinsic renalparenchymal disease. Nathan Bacon MD IMG US ABDOMEN Final Result documented in this encounter Visit Diagnoses Diagnosis Hypertension, unspecified type- Primary Hypertension, unspecified type documented in this encounter Additional Health Concerns Assessment Noted Time PHQ-9 Depression Total Score: 23 09/19/ 024 3:21 PM EDT PHQ-2 Depression Total Score: 6 09/20/19 24 3:21 PM EDT documented as of this encounter Care Teams Print Production Manager Relationship Specialty Start Date End Date Ja Holley MD [address] [place] [address], [address] [place] [address] PCP - General Internal Medicine 07/23/20 Emile [place] MD [address] [place] [address] Gastroenterology 10/31/18 Frank Mak MD [address] [place] [address], [address] [place] [address] [email or web address] Physical Medicine and Rehabilitation 11/14/20 Jamari Ellison DO [address] [place] [address] Orthopedics & Sports Medicine, [place] [address] Orthopedic Surgery 07/24/21 Fredi Unger MD [address] [place] [address] Ophthalmology 07/24/21 Elroy Calderon MD [address] [place] [address], [address] [address] Urology 10/27/21 Ja Holley MD [address] [place] [address], [address] [place] [address] Insurance Assigned Provider 05/28/23 Bartolo [place] MD [address] [place] [address] Psychiatry 10/08/22 Molly Spring RN [address] [place] [address] [email or web address] Specialist 02/07/23 10/07/24 Maximino Dorado MD, PhD [address] [place] [address] [email or web address] Radiation Oncology 05/03/23 Lincoln Thomson MD [address] [place] [address], [address] [place] [address] [email or web address] Physical Medicine and Rehabilitation 06/26/23 Dhaval Slater MD [address] [place] [address] Dr CALIX [address] [place] [address] Neurosurgery 07/07/23 documented as of this encounter Additional Source Comments The information contained in this document represents components of the legal health record. It is not the complete legal health record.[facility]
--- OUTSIDE RECORDS SUMMARY | 2024-11-23 13:04 | XMS_ITS | Encounter Summary ---
Author Organization [facility] Address [address] [place] [address] Phone Care Team Providers Care Leg Breaker Name Role Phone Emile Blake MD Unavailable [phone] Ja Holley MD Primary Care Provider + [phone] Frank Mak MD Unavailable [phone] Jamari Ellison DO Unavailable [phone] Fredi Unger MD Unavailable [phone] Elroy Calderon MD Unavailable [phone] Ja Holley MD Unavailable [phone] Bartolo [place] MD Unavailable [phone] Molly Spring RN Unavailable [email or web address] Maximino Dorado MD, PhD Unavailable [phone] Lincoln Thomson MD Unavailable [phone] Dhaval Slater MD Unavailable Encounter Details Date Type Department Care Team (Late st Contact Info) Description 05/07/2024 Procedure Pass [facility], Ct Scan - [address] [id number] Social History Tobacco Use Types Packs/Day Years [...] 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 Not on file Not on file Not on file documented as of this encounter Plan of Treatment Upcoming Encounters Date Type Department Care Team (Late st Contact Info) Description 12/27/2024 1:30 PM EST Appointment Department of Radiation Oncology [address] [place] [address] Lincoln uBrton NP [address] [place] [address] [email or web address] 02/19/2025 3:00 PM EST Office Visit [facility] Medicine [address] [place] [address] [place] [address] Ja Holley MD [address] [place] [address], [address] [place] [address] 04/30/2025 10:30 AM EDT Office Visit [facility] [address] [place] [address] [place] [address] Fredi Elaine DO [address] [place] [address] 07/22/2025 9:40 AM EDT Office Visit [facility] [address] [place] [address] [address]rd Floor, [address] [place] [address] Asif Araiza MD, MS [address] [place] [address], [address] [place] [address] documented as of this encounter Visit Diagnoses Not on filedocumented in this encounter Additional Health Concerns Assessment Noted Time PHQ-9 Depression Total Score: 24 025 8:29 AM EST PHQ-2 Depression Total Score: 6 03/22/19 25 8:29 AM EST documented as of this encounter Care Teams Leg Breaker Relationship Specialty Start Date End Date Ja Holley MD [address] [place] [address], [address] [place] [address] PCP - General Internal Medicine 07/23/20 Emile Blake MD [address] [place] [address] Gastroenterology 10/31/18 Frank Mak MD [address] [place] [address], [address] [place] [address] [email or web address] Physical Medicine and Rehabilitation 11/14/20 Jamari Ellison DO [address] [place] [address] Orthopedics & Sports Medicine, [place] [address] Orthopedic Surgery 07/24/21 Fredi Unger MD [address] [place] [address] Ophthalmology 07/24/21 Elroy Calderon MD [address] [place] [address], [address] [place] [address] Urology 10/27/21 Ja Holley MD [address] [place] [address], [address] [place] [address] Insurance Assigned Provider 05/28/23 Bartolo [place] MD [address] [place] [address] Psychiatry 10/08/22 Molly Spring RN [address] [place] [address] [email or web address] Product Development Chemist 02/07/23 10/07/24 Maximino Dorado MD, PhD [address] [place] [address] [email or web address] Radiation Oncology 05/03/23 Lincoln Thomson MD [address] [place] [address], [address] [place] [address] [email or web address] Physical Medicine and Rehabilitation 06/26/23 Dhaval Slater MD [address] [place] [address] Dr CALIX [address] [place] [address] Neurosurgery 07/07/23 documented as of this encounter Additional Source Comments The information contained in this document represents components of the legal health record. It is not the complete legal health record.[facility]
--- OUTSIDE RECORDS SUMMARY | 2024-11-23 13:04 | XMS_ITS | Encounter Summary ---
Author Organization [facility] Address [address] [place] [address] Phone Care Team Providers Care Hydro Plant Technician Name Role Phone Emile Blake MD Unavailable Ja Holley MD Primary Care Provider [phone] Frank Mak MD Unavailable [phone] Alfonzo Perkins MD Unavailable [phone] Rosalia Vargas RN Unavailable [phone] Jamari Ellison DO Unavailable [phone] Fredi Unger MD Unavailable Elroy Calderon MD Unavailable [phone] Ja Holley MD Unavailable [phone] Bartolo Morgan MD Unavailable [phone] Molly Spring RN Unavailable [email or web address] Criss Cosme Unavailable Maximino Dorado MD, PhD Unavailable [phone] Maximino Dorado MD, PhD Unavailable [phone] Lincoln Thomson MD Unavailable Dhaval Slater MD Unavailable Reason for Visit * Reason Onset Date Comments pain clinic referral 11/21/2020 Encounter Details Date Type Department Care Team (Late st Contact Info) Description 11/21/2020 Telephone See [facility] [address] [place] [address] Ja Holley MD [address], [address] [place] [address] [email or web address] pain clinic referral Social History Tobacco Use Types Packs/Day Years [...] high school, GED, job training, learning the Scottish language, technical skills, or developing parenting skills)? 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 Patient would like referral for [facility] pain clinic. Script and referral pended. * Ja Holley MD - 11/24/2020 11:35 AM EDT I sent in a prescription for venlafaxine. He can start taking that now and discontinue taking citalopram. During the transition between medications, he may feel mildly unwell, but this should gradually improve over a week or 2. [facility] pain clinic is not likely to be able to offer anything other than injections. I think he will have better luck at the [facility] pain clinic. If you would like referral there I can arrangethat. I suggest seeing the pain clinic there prior to seeing another surgeon. * Terrie Meyers RN - 11/24/2020 9:05 AM EDT Spoke with patient who calls to request [facility] Pain management referral. Would like to explore other modalities of treatment rather than injections and mediation. Referral pended. Patient also would like to see a back surgeon. Does PCP have recommendations at [facility], or [facility]? Patient requests new prescription. States currently taking half of Celexa and had discussed switching to Effexor at last OV. * Angel Toth - 11/21/2020 1:37 PM EDT Albert called in, is not satisfied with his treatment from [facility], he would like to go to a pain clinic. Please contact and advise. documented in this encounter Plan of Treatment Upcoming Encounters Date Type Department Care Team (Late st Contact Info) Description 12/27/2024 1:30 PM EST Appointment Department of Radiation Oncology [address] [place] [address] Lincoln Burton, MABLE [address] [place] [address] [email or web address] 02/19/2025 3:00 PM EST Office Visit [facility] [address] [place] [address] [place] [address] Ja Holley MD [address] [place] [address], [address] [place] [address] 04/30/2025 10:30 AM EDT Office Visit [facility] [address] [place] [address] [place] [address] Fredi Elaine DO [address] [place] [address] 07/22/2025 9:40 AM EDT Office Visit [facility] [address] [place] [address] 3rd Floor, [address] [place] [address] Asif Araiza MD, MS [address] [place] [address], [address] [place] [address] documented as of this encounter Visit Diagnoses Diagnosis Degenerative disc disease, cervical- Primary Non-recurrent unilateral inguinal hernia without obstruction or gangrene Spondylolisthesis, lumbar region Chronic bilateral back pain Anxiety Anxiety state, unspecified documented in this encounter Additional Health [...] documented as of this encounter Care Teams Hydro Plant Technician Relationship Specialty Start Date End Date Ja Holley MD [address] [place] [address] PCP - General Internal Medicine 07/23/20 Emile Blake MD [address] [place] [address] Gastroenterology 10/31/18 Frank Mak MD [address] [place] [address] [address] [place] [address] [email or web address] Physical Medicine and Rehabilitation 11/14/20 [place] [address] Psychiatry 02/01/21 10/07/22 Rosalia Vargas RN [address] [place] [address] iCMP Plaster Die Maker 02/12/21 03/10/21 Jamari Ellison DO [address] [place] [address] [facility] [address] [email or web address] Orthopedic Surgery 07/24/21 Fredi Unger MD [address] [place] [address] 2 [place] [address] Ophthalmology 07/24/21 Elroy Calderon MD [address] [place] [address], [address] [place] [address] [email or web address] Urology 10/27/21 Ja Holley MD [address] [place] [address], [address] [place] [address] [email or web address] Insurance Assigned Provider 05/28/23 Bartolo Morgan MD [address] [place] [address] Psychiatry 10/08/22 Molly Spring, KATEY [address] [place] [address] [email or web address] Plaster Die Maker 02/07/23 10/07/24 Criss Cosme [address] [place] [address] [email or web address] [facility] Community Health Worker 03/29/23 03/29/23 Maximino Dorado MD, PhD [address] [place] [address] [email or web address] Radiation Oncology 05/03/23 Maximino Dorado MD, PhD [address] [place] [address] [email or web address] Radiation Oncology 06/01/23 06/25/23 Lincoln Thomson MD [address] [place] [address], 2[address] [place] [address] [email or web address] Physical Medicine and Rehabilitation 06/26/23 Dhaval Slater MD [address] [place] [address] [place] [address] Neurosurgery 07/07/23 documented as of this encounter Additional Source Comments The information contained in this document represents components of the legal health record. It is not the complete legal health record.[facility]
--- OUTSIDE RECORDS SUMMARY | 2024-11-23 13:04 | XMS_ITS | Encounter Summary ---
Author Organization [facility] Address [address] [place] [address] Phone Care Team Providers Care Curtain Stitcher Name Role Phone Kellee Gomez Allan PRICE Primary Care Provider [phone] Leonel Alegria MD Primary Care Provider Emile Blake MD Unavailable [phone] Andrei Coon DO Primary Care Provider [phone] Lupis Copeland MD Primary Care Provider Gordon Moralez MD Primary Care Provider + [phone] Ja Holley MD Primary Care Provider [phone] Frank Mak MD Unavailable [phone] Alfonzo Perkins MD Unavailable [phone] Rosalia Vargas RN Unavailable Jamari Ellison DO Unavailable [phone] Fredi Unger MD Unavailable [phone] Elroy Calderon MD Unavailable [phone] Ja Holley MD Unavailable [phone] Bartolo Morgan MD Unavailable [phone] Molly Spring RN Unavailable [email or web address] Criss Cosme Unavailable [phone] Maximino Dorado MD, PhD Unavailable [phone] Maximino Dorado MD, PhD Unavailable [phone] Lincoln Thomson MD Unavailable Dhaval Slater MD Unavailable Encounter Details Date Type Department Care Team (Latest Contact Info) Description 03/28/2017 Transcribe Orders [facility] [address] [place] [address] Emile Blake MD [address] [facility] 2 [place] [address] Abdominal distention (Primary Dx) Social History Tobacco Use Types Packs/Day Years Used Date Smoking Tobacco: Never Alcohol Use Standard Drinks/Week Comments [...] PM EST Appointment Department of Radiation Oncology [address] [place] [address] Lincoln Burton, RAMP AGENT [address] [place] [address] [email or web address] 02/19/2025 3:00 PM EST Office Visit [facility] [address] [place] [address] Ja Holley MD [address] [place] [address], [address] [place] [address] 04/30/2025 10:30 AM EDT Office Visit [facility] [address] [place] [address] [place] [address] Fredi Elaine, [address] [place] [address] 07/22/2025 9:40 AM EDT Office Visit [facility] [address] [facility] 3rd Floor, [address] [place] [address] Asif Araiza MD, MS 22 [facility], [address] [place] [address] [email or web address] documented as of this encounter Results * TSH (03/28/2017 1:35 PM EST) TSH 0.78 0.27 - 4.20 uIU/mL [facility] Blood 03/28/2017 1:35 PM EST 03/28/2017 1:39 PM EST us Emile Blake MD LAB BLOOD ORDERABLES Final R esult [address] [address] * Lipase (03/28/2017 1:35 PM EST) LIPASE 34 16 - 63 U/L [facility] Blood 03/28/2017 1:35 PM EST 03/28/2017 1:39 PM EST us Emile Blake MD LAB BLOOD ORDERABLES Final R esult [address] [address] * Hepatitis C antibody, qualitative (03/28/2017 1:35 PM EST) HCV Negative Negative [facility] Comment: This is a screening test and should be confirmed with molecular testing Blood 03/28/2017 1:35 PM EST 03/28/2017 1:39 PM EST us Emile Blake MD LAB BLOOD ORDERABLES Final R esult Performing Organization Address [facility] Co pr Phone Number [address] [address] * Hepatitis B surface antigen (03/28/2017 1:35 PM EST) HBV SURFACE ANTIGEN Negative Negative [facility] Blood 03/28/2017 1:35 PM EST 03/28/2017 1:39 PM EST Emile Blake MD LAB BLOOD ORDERABLES Final R esult Performing Organization Address [facility] Phone Number [address] [address] * Hepatitis A antibody, total (03/28/2017 1:35 PM EST) HAV TOTAL AB Negative Negative [facility] Blood 03/28/2017 1:35 PM EST 03/28/2017 1:39 PM EST us Emile Blake MD LAB BLOOD ORDERABLES Final R esult Performing Organization Address [facility] de Phone Number [address] [address] * C-Reactive Protein (03/28/2017 1:35 PM EST) C REACTIVE PROTEIN 0.2 0 - 0.5 mg/L [facility] Blood 03/28/2017 1:35 PM EST 03/28/2017 1:39 PM EST us Emile Blake MD LAB BLOOD ORDERABLES Final R esult Performing Organization Address [facility] Co pr Phone Number [address] [address] documented in this encounter Visit Diagnoses Diagnosis Abdominal distention- Primary Flatulence, eructation, and gas pain documented in this encounter Additional Health Concerns Infection Onset Date Last Indicated Resolved Time CoV-Exposed Comment:Recent close contact documented in the COVID-19 PCR/PRO order 12/04/2020 12/18/2020 12/19/2020 1:25 AM E DT CoV-Risk 01/21/2022 01/21/2022 02/01/2022 1:32 AM EST documented as of this encounter Care Teams Curtain Stitcher Relationship Specialty Start Date End Date Kellee Gomez FNP [address] [place] [address] [email or web address] PCP - General Family Medicine 01/19/17 05/19/17 [place] [address] [email or web address] PCP - General Internal Medicine 05/20/17 01/07/19 Andrei Coon DO [address] [place] [address] [email or web address] PCP - General Family Medicine 01/08/19 01/03/20 Lupis Copeland MD [address] [place] [address] [email or web address] PCP - General Family Medicine 01/04/20 06/09/20 Gordon Moralez MD [address] [address] [email or web address] PCP - General 06/10/20 07/22/20 Ja Holley MD [address] [place] [address], [address] [place] [address] [email or web address] PCP - General Internal Medicine 07/23/20 Emile Blake MD [address] [place] [address] 2 [place] [address] Gastroenterology 10/31/18 Frank Mak MD [address] [place] [address], [address] [place] [address] [email or web address] Physical Medicine and Rehabilitation 11/14/20 [place] [address] Psychiatry 02/01/21 10/07/22 Rosalia Vargas, KATEY [address] [place] [address] [email or web address] Bakery Supervisor 02/12/21 03/10/21 Jamari Ellison DO [address] [place] [address] [facility] Sports Medicine, [place] [address] Orthopedic Surgery 07/24/21 Fredi Unger MD [address] [place] [address] 2 [place] [address] Ophthalmology 07/24/21 Elroy Calderon MD [address] [place] [address], [address] [place] [address] Urology 10/27/21 Ja Holley MD [address] [place] [address], [address] [place] [address] [email or web address] Insurance Assigned Provider 05/28/23 Bartolo Morgan MD [address] [place] [address] Psychiatry 10/08/22 Molly Spring RN [address] [place] [address] [email or web address] Bakery Supervisor 02/07/23 10/07/24 Criss Cosme [address] [place] [address] [email or web address] Community Health Worker 03/29/23 03/29/23 Maximino Dorado MD, PhD [address] [place] [address] [email or web address] Radiation Oncology 05/03/23 Maximino Dorado MD, PhD [address] [place] [address] [email or web address] Radiation Oncology 06/01/23 06/25/23 Lincoln Thomson MD [address] [place] [address], 2nd [place] [address] [email or web address] Physical Medicine and Rehabilitation 06/26/23 Dhaval Slater MD [address] [place] [address] Dr CALIX [address] [place] [address] Neurosurgery 07/07/23 documented as of this encounter Additional Source Comments The information contained in this document represents components of the legal health record. It is not the complete legal health record.[facility]
--- OUTSIDE RECORDS SUMMARY | 2024-11-23 13:04 | XMS_ITS | Encounter Summary ---
Author Organization [facility] Address [address] [place] [address] Phone Care Team Providers Care Fiscal Services Manager Name Role Phone Emile Blake MD Unavailable [phone] Ja Holley MD Primary Care Provider + [phone] Frank Mak MD Unavailable [phone] Jamari Ellison DO Unavailable [phone] Fredi Unger MD Unavailable [phone] Elroy Calderon MD Unavailable [phone] Ja Holley MD Unavailable [phone] Bartolo Morgan MD Unavailable [phone] Molly Spring RN Unavailable [email or web address] Maximino Dorado MD, PhD Unavailable [phone] Lincoln Thomson MD Unavailable [phone] Dhaval Slater MD Unavailable Reason for Referral * MRI/CAT Scan - Closed Specialty Diagnoses / Procedures Referred By Glory pablo Referred To Contact Radiology Diagnoses Liver nodule Adrenal nodule Procedures MRI Abdomen Dorita Mcelroy PA [address] [place] [address] Phone: tel: fax: Referral ID Status Reason Start Date Expiration Date Visits Re quested Visits Authorized [id number] Closed 05/29/2024 05/29/2025 1 1 Encounter Details Date Type Department Care Team (Latest Contact Info) Description 05/29/2024 Transcribe Orders Virtual Department 30 [place] [address] Dorita Mcelroy PA [address] [place] [address] Mass of adrenal gland (Primary Dx); Liver nodule; Adrenal nodule Social History Tobacco Use Types Packs/Day Years [...] 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 Not on file disabled Not on file Not on file Not on file documented as of this encounter Plan of Treatment Upcoming Encounters Date Type Department Care Team ([facility] st Contact Info) Description 12/27/2024 1:30 PM EST Appointment Department of Radiation Oncology [address] [place] [address] Lincoln Burton, MABLE [address] [place] [address] [email or web address] 02/19/2025 3:00 PM EST Office Visit [facility] [address] [place] [address] [place] [address] Ja Holley MD [address] [facility], [address] [place] [address] 04/30/2025 10:30 AM EDT Office Visit [facility] [address] [place] [address] [place] [address] Fredi Elaine, 22 [place] [address] [email or web address] 07/22/2025 9:40 AM EDT Office Visit [facility] [address]rd Floor, [address] [place] [address] Asif Araiza MD, MS [address] [facility], [address] [place] [address] [email or web address] documented as of this encounter Results * MRI ABDOMEN (LIVER) WITH AND WITHOUT CONTRAST (06/19/2024 10:09 AM EDT) [facility] VETERAN APPEALS REVIEWER COMMENT Growing left adrenal nodule without specific benign features. Endocrine surgery consultation advised. Numerous pancreatic cystic lesions. Subspecialty follow-up and 12 month follow-up advised. [employer] Anatomical Region Laterality Modality Abdomen Magnetic Resonan ce 06/22/2024 10:0 3 AM EDT Impressions 06/22/2024 10:20 AM EDT 1. A heterogeneous left adrenal nodule measuring 3.4 cm has increased in size compared to more distant prior study from 03/03/2007 where it measured 2.0 cm. This does not demonstrate specific benign features on MRI. Endocrine surgical consult recommended for further management decisions. 2. No MR evidence for suspicious hepatic lesion. 3. Innumerable pancreatic cystic lesions measuring up to 10 mm without suspicious enhancement or main ductal dilatation. Leading differential is intraductal papillary mucinous neoplasm. Follow-up within 12 months recommended subspecialty referral for further management could be considered. A clinically significant result was initiated on 06/22/2024 10:20 AM, Message ID [id number]. Narrative 06/22/2024 10:20 AM EDT MRI ABDOMEN (LIVER) WITH AND WITHOUT CONTRAST Referring clinician's provided indication for this examination in Epic: Outside Radiology Order; liver and adrenal gland nodule TECHNIQUE: Multiplanar MR imaging of the abdomen was performed using T1, T2, fat saturated, and diffusion weighted techniques. Dynamic multiphase imaging was also performed after administration of an intravenous gadolinium contrast agent. COMPARISON: Prior studies, including CT abdomen/pelvis 05/19/2024 FINDINGS: Lower Chest: Normal. No effusions. Liver: No suspicious enhancing liver lesions. No definite MR correlate for ill-defined low-attenuation lesion in the left hepatic lobe on prior CT which may represent an area of altered perfusion. Biliary: No biliary ductal dilatation. Spleen: The spleen is not enlarged. Thin-walled T2 hyperintense posterior splenic lesion measuring 6 mm is likely a cyst. Pancreas: Numerous pancreatic cystic lesions are present throughout the head, body and tail of pancreas, measuring up to 10 mm (12:28). No pancreatic ductal dilatation or suspicious enhancement. Adrenal Glands: Heterogeneous left adrenal nodule measures 3.4 x 3.2 cm (8:39). This does not have specific benign features on MRI. Review of prior studies demonstrates that this measured 2.0 x 1.9 cm on 03/03/2007. No right adrenal nodule. Kidneys/Ureters: No hydronephrosis or enhancing renal lesion. Bilateral renal cysts. Peritoneum/Retroperitoneum: No suspicious free fluid in the abdomen. Lymph Nodes: No enlarged upper abdominal lymph nodes. Vessels: No abdominal aortic aneurysm. Patent portal vein. Bones/Soft Tissues: No focal marrow replacing lesions. Small hiatal hernia. Procedure Note Fredi Guevara MD - 06/22/2024 MRI ABDOMEN (LIVER) WITH AND WITHOUT CONTRAST Referring clinician's provided indication for this examination in Epic:Outside Radiology Order; liver and adrenal gland nodule TECHNIQUE: Multiplanar MR imaging of the abdomen was performed using T1,T2, fat saturated, and diffusion weighted techniques. Dynamic multiphaseimaging was also performed after administration of an intravenousgadolinium contrast agent. COMPARISON: Prior studies, including CT abdomen/pelvis 05/19/2024 FINDINGS: Lower Chest: Normal. No effusions. Liver: No suspicious enhancing liver lesions. No definite MR correlate forill- defined low-attenuation lesion in the left hepatic lobe on prior CTwhich may represent an area of altered perfusion. Biliary: No biliary ductal dilatation. Spleen: The spleen is not enlarged. Thin-walled T2 hyperintense posteriorsplenic lesion measuring 6 mm is likely a cyst. Pancreas: Numerous pancreatic cystic lesions are present throughout thehead, body and tail of pancreas, measuring up to 10 mm (12:28). Nopancreatic ductal dilatation or suspicious enhancement. Adrenal Glands: Heterogeneous left adrenal nodule measures 3.4 x 3.2 cm (8:39). This doesnot have specific benign features on MRI. Review of prior studiesdemonstrates that this measured 2.0 x 1.9 cm on 03/03/2007. No right adrenal nodule. Kidneys/Ureters: No hydronephrosis or enhancing renal lesion. Bilateralrenal cysts. Peritoneum/Retroperitoneum: No suspicious free fluid in the abdomen. Lymph Nodes: No enlarged upper abdominal lymph nodes. Vessels: No abdominal aortic aneurysm. Patent portal vein. Bones/Soft Tissues: No focal marrow replacing lesions. Small hiatal hernia. IMPRESSION: 1. A heterogeneous left adrenal nodule measuring 3.4 cm has increased insize compared to more distant prior study from 03/03/2007 where it measured2.0 cm. This does not demonstrate specific benign features on MRI.Endocrine surgical consult recommended for further management decisions. 2. No MR evidence for suspicious hepatic lesion. 3. Innumerable pancreatic cystic lesions measuring up to 10 mm withoutsuspicious enhancement or main ductal dilatation. Leading differential isintraductal papillary mucinous neoplasm. Follow-up within 12 monthsrecommended subspecialty referral for further management could beconsidered. A clinically significant result was initiated on 06/22/2024 10:20 AM,Message ID [id number]. us Dorita SALES IMG MR ABDOMEN Final Resul t documented in this encounter Visit Diagnoses Diagnosis Mass of adrenal gland- Primary Liver nodule Other specified disorders of liver Adrenal nodule Benign neoplasm of adrenal gland Liver nodule Other specified disorders of liver Adrenal nodule Benign neoplasm of adrenal gland documented in this encounter Additional Health Concerns Assessment Noted Time PHQ-9 Depression Total Score: 24 025 8:29 AM EST PHQ-2 Depression Total Score: 6 03/22/19 25 8:29 AM EST documented as of this encounter Care Teams Fiscal Services Manager Relationship Specialty Start Date End Date Ja Holley MD [address] [place] [address], [address] [place] [address] [email or web address] PCP - General Internal Medicine 07/23/20 Emile Blake MD [address] [place] [address] Gastroenterology 10/31/18 Frank Mak MD [address] [place] [address], [address] [place] [address] [email or web address] Physical Medicine and Rehabilitation 11/14/20 Jamari Ellison DO [address] [place] [address] Orthopedics & Sports Medicine, [place] [address] Orthopedic Surgery 07/24/21 Fredi Unger MD [address] [place] [address] Ophthalmology 07/24/21 Elroy Calderon MD [address] [place] [address], [address] [place] [address] Urology 10/27/21 Ja Holley MD [address] [place] [address], [address] [place] [address] [email or web address] Insurance Assigned Provider 05/28/23 Bartolo Morgan MD [address] [place] [address] Psychiatry 10/08/22 Molly Spring RN [address] [place] [address] [email or web address] 02/07/23 10/07/24 Maximino Dorado MD, PhD [address] [place] [address] [email or web address] Radiation Oncology 05/03/23 Lincoln Thomson MD [address] [place] [address], 2nd [place] [address] [email or web address] Physical Medicine and Rehabilitation 06/26/23 Dhaval Slater MD [address] [place] [address] Dr CALIX [address] [place] [address] Neurosurgery 07/07/23 documented as of this encounter Additional Source Comments The information contained in this document represents components of the legal health record. It is not the complete legal health record.[facility]
--- OUTSIDE RECORDS SUMMARY | 2024-11-23 13:04 | XMS_ITS | Encounter Summary ---
Author Organization [facility] Address [address] [place] [address] Phone Care Team Providers Care Automobile Mechanic Radiator Name Role Phone Kellee Gomez Allan PRICE Primary Care Provider [phone] Leonel Alegria MD Primary Care Provider [phone] Emile Blake MD Unavailable [phone] Andrei Coon DO Primary Care Provider [phone] Lupis Copeland MD Primary Care Provider [phone] Gordon Moralez MD Primary Care Provider + [phone] Ja Holley MD Primary Care Provider [phone] Frank Mak MD Unavailable [phone] Alfonzo Perkins MD Unavailable [phone] Rosalia Vargas RN Unavailable [phone] Jamari Ellison DO Unavailable [phone] Fredi Unger MD Unavailable [phone] Elroy Calderon MD Unavailable [phone] Ja Holley MD Unavailable [phone] Bartolo Morgan MD Unavailable [phone] Molly Spring RN Unavailable [email or web address] Criss Cosme Unavailable [phone] Maximino Dorado MD, PhD Unavailable [phone] Maximino Dorado MD, PhD Unavailable [phone] Lincoln Thomson MD Unavailable Dhaval Slater MD Unavailable Encounter Details Date Type Department Care Team (Late Contact Info) Description 01/20/2017 Procedure Pass [facility] Endoscopy Admitting Dept Virtual Department [address] [place] [address] Social History Tobacco Use Types Packs/Day Years [...] EST Appointment Department of Radiation Oncology [address] [place] [address] Lincoln Burton, EMERGENCY DEPARTMENT CLINICIAN [address] [place] [address] [email or web address] 02/19/2025 3:00 PM EST Office Visit [facility] [address] [place] [address] Ja Holley MD [address] [place] [address], [address] [place] [address] 04/30/2025 10:30 AM EDT Office Visit [facility] [address] [place] [address] [place] [address] Fredi Elaine DO [address] [place] [address] 07/22/2025 9:40 AM EDT Office Visit [facility] [address] [facility] 3rd Floor, [address] [place] [address] Asif Araiza MD, MS 22 [facility], [address] [place] [address] [email or web address] documented as of this encounter Visit Diagnoses Not on filedocumented in this encounter Additional Health Concerns Infection Onset Date Last Indicated Resolved Time CoV-Exposed Comment:Recent close contact documented in the COVID-19 PCR/PRO order 12/04/2020 12/18/2020 12/19/2020 1:25 AM E DT CoV-Risk 01/21/2022 01/21/2022 02/01/2022 1:32 AM EST documented as of this encounter Care Teams Automobile Mechanic Radiator Relationship Specialty Start Date End Date Kellee Gomez FNP [address] [place] [address] [email or web address] PCP - General Family Medicine 01/19/17 05/19/17 [place] [address] [email or web address] PCP - General Internal Medicine 05/20/17 01/07/19 Andrei Coon DO [address] [place] [address] [email or web address] PCP - General Family Medicine 01/08/19 01/03/20 Lupis Copeland MD [address], [place] [address] [email or web address] PCP - General Family Medicine 01/04/20 06/09/20 Gordon Moralez MD [address] [facility] [address] [place] [address] [email or web address] PCP - General 06/10/20 07/22/20 Ja Holley MD [address] [facility], [address] [place] [address] PCP - General Internal Medicine 07/23/20 Emile Blake MD [address] [place] [address] [address] Gastroenterology 10/31/18 Frank Mak MD [address] [facility], [address] [place] [address] [email or web address] Physical Medicine and Rehabilitation 11/14/20 [place] [address] Psychiatry 02/01/21 10/07/22 Rosalia Vargas, KATEY [address] [place] [address] iCMP Field Radio Technician 02/12/21 03/10/21 Jamari Ellison DO [address] [place] [address] [facility] [place] [address] Orthopedic Surgery 07/24/21 Fredi Unger MD [address] [place] [address] 2 [place] [address] Ophthalmology 07/24/21 Elroy Calderon MD [address] [place] [address] [address] [place] [address] [email or web address] Urology 10/27/21 Ja Holley MD [address] [place] [address], [address] [place] [address] [email or web address] Insurance Assigned Provider 05/28/23 Bartolo Morgan MD [address] [place] [address] Psychiatry 10/08/22 Molly Spring RN [address] [place] [address] [email or web address] Field [email or web address] 02/07/23 10/07/24 Criss Cosme 10 [place] [address] [email or web address] [facility] Community Health Worker 03/29/23 03/29/23 Maximino Dorado MD, PhD [address] [place] [address] [email or web address] Radiation Oncology 05/03/23 Maximino Dorado MD, PhD [address] [place] [place] [address] [email or web address] Radiation Oncology 06/01/23 06/25/23 Lincoln Thomson MD [address] [place] [address], 2nd [place] [address] Physical Medicine and Rehabilitation 06/26/23 Dhaval Slater MD [address] [place] [address] [place] [address] Neurosurgery 07/07/23 documented as of this encounter Additional Source Comments The information contained in this document represents components of the legal health record. It is not the complete legal health record.[facility]
--- OUTSIDE RECORDS SUMMARY | 2024-11-23 13:04 | XMS_ITS | Encounter Summary ---
Author Organization [facility] Address [address] [place] [address] Phone Care Team Providers Care Demo Event Specialist Name Role Phone Emile Blake MD Unavailable Ja Holley MD Primary Care Provider [phone] Frank Mak MD Unavailable Alfonzo Perkins MD Unavailable Rosalia Vargas RN Unavailable [phone] Jamari Ellison DO Unavailable [phone] Fredi Unger MD Unavailable Elroy Calderon MD Unavailable [phone] Ja Holley MD Unavailable [phone] Bartolo Morgan MD Unavailable [phone] Molly Spring RN Unavailable [email or web address] Criss Cosme Unavailable [phone] Maximino Dorado MD, PhD Unavailable [phone] Maximino Dorado MD, PhD Unavailable [phone] Lincoln Thomson MD Unavailable Dhaval Slater MD Unavailable Encounter Details Date Type Department Care Team (Late st Contact Info) Description 11/05/2020 Procedure Pass [place] Admitting Dept - Virtual Department [address] [place] [address] Social History Tobacco Use Types Packs/Day Years [...] high school, GED, job training, learning the [place] language, technical skills, or developing parenting skills)? 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 file disabled Not on file Not on file Not on file documented as of this encounter Plan of Treatment Upcoming Encounters Date Type Department Care Team (Late st Contact Info) Description 12/27/2024 1:30 PM EST Appointment Department of Radiation Oncology [address] [address] Lincoln Burton, MABLE 75 [facility] [place] [address] [email or web address] 02/19/2025 3:00 PM EST Office Visit [facility] [address] [place] [address] Ja Holley MD [address] [place] [address], [address] [place] [address] 04/30/2025 10:30 AM EDT Office Visit [facility] [address] [place] [address] [place] [address] Fredi Elaine DO [address] [place] [address] 07/22/2025 9:40 AM EDT Office Visit [facility] [address] [place] [address] 3rd Floor, [address] [place] [address] Asif Araiza MD, MS [address] [place] [address], [address] [place] [address] documented as of this encounter Visit Diagnoses Not on filedocumented in this encounter Additional Health Concerns Infection Onset Date Last Indicated Resolved Time CoV-Exposed Comment:Recent close contact documented in the COVID-19 PCR/PRO order 12/04/2020 12/18/2020 12/19/2020 1:25 AM E DT CoV-Risk 01/21/2022 01/21/2022 02/01/2022 1:3 2 AM EST Assessment Noted Time PHQ-9 Depression Total Score: 23 021 8:56 AM EDT PHQ-2 Depression Total Score: 6 07/24/19 21 8:56 AM EDT documented as of this encounter Care Teams Demo Event Specialist Relationship Specialty Start Date End Date Ja Holley MD [address] [place] [address], [address] [place] [address] PCP - General Internal Medicine 07/23/20 Emile Blake MD [address] [place] [address] Gastroenterology 10/31/18 Frank Mak MD [address] [place] [address], [address] [place] [address] [email or web address] Physical Medicine and Rehabilitation 11/14/20 [place] [address] Psychiatry 02/01/21 10/07/22 Rosalia Vargas, KATEY [address] [place] [address] [email or web address] Museum Preparator 02/12/21 03/10/21 Jamari Ellison DO [address] [place] [address] [facility] [place] [address] Orthopedic Surgery 07/24/21 Fredi Unger MD [address] [place] [address] Ophthalmology 07/24/21 Elroy Calderon MD [facility], [address] [place] [address] [email or web address] Urology 10/27/21 Ja Holley MD [address] [place] [address], [address] [place] [address] [email or web address] Insurance Assigned Provider 05/28/23 Bartolo Morgan MD [address] [place] [address] Psychiatry 10/08/22 Molly Spring RN [address] [place] [address] [email or web address] 02/07/23 10/07/24 Criss Cosme 10 [place] [address] [email or web address] [facility] Community Health Worker 03/29/23 03/29/23 Maximino Dorado MD, PhD [address] [place] [address] [email or web address] Radiation Oncology 05/03/23 Maximino Dorado MD, PhD [address] [place] [address] [email or web address] Radiation Oncology 06/01/23 06/25/23 Lincoln Thomson MD [address] [place] [address], 2nd [place] [address] [email or web address] Physical Medicine and Rehabilitation 06/26/23 Dhaval Slater MD [address] [place] [address] Dr [address] [place] [address] Neurosurgery 07/07/23 documented as of this encounter Additional Source Comments The information contained in this document represents components of the legal health record. It is not the complete legal health record.[facility]
--- OUTSIDE RECORDS SUMMARY | 2024-11-23 13:04 | XMS_ITS | Encounter Summary ---
Author Organization [facility] Address [address] [place] [address] Phone Care Team Providers Care Director Operations Broadcast Name Role Phone Kellee Gomez Allan PRICE Primary Care Provider [phone] Leonel Alegria MD Primary Care Provider Emile Blake MD Unavailable [phone] Andrei Coon DO Primary Care Provider [phone] Lupis Copeland MD Primary Care Provider Gordon Moralez MD Primary Care Provider + [phone] Ja Holley MD Primary Care Provider [phone] Frank Mak MD Unavailable [phone] Alfonzo Perkins MD Unavailable [phone] Rosalia Vargas RN Unavailable [phone] Jamari Ellison DO Unavailable [phone] Fredi Unger MD Unavailable [phone] Elroy Calderon MD Unavailable [phone] Ja Holley MD Unavailable [phone] Bartolo Morgan MD Unavailable [phone] Molly Spring RN Unavailable [email or web address] Criss Cosme Unavailable [phone] Maximino Dorado MD, PhD Unavailable [phone] Maximino Dorado MD, PhD Unavailable [phone] Lincoln Thomson MD Unavailable [phone] Dhaval Slater MD Unavailable Encounter Details Date Type Department Care Team (Late Contact Info) Description 03/02/2017 Ancillary Orders Virtual Department [address] [place] [address] Emile Blake MD [address] [place] [address] Lower abdominal pain; Abnormal results of liver function studies; Bloated abdomen; Weight gain Social History Tobacco Use Types Packs/Day Years [...] PM EST Appointment Department of Radiation Oncology [address] [place] [address] Lincoln Burton, OUTCOMES MANAGER [address] [place] [address] [email or web address] 02/19/2025 3:00 PM EST Office Visit [facility] [address] [address] Ja Holley MD [address] [facility] [place] [address] 04/30/2025 10:30 AM EDT Office Visit [facility] [address] [place] [address] Fredi Elaine, 22 [place] [address] 07/22/2025 9:40 AM EDT Office Visit [facility] [address], [address] [place] [address] Asif Araiza MD, MS [address] [facility], [address] [place] [address] documented as of this encounter Results * CT ABDOMEN/PELVIS WITH CONTRAST (03/08/2017 11:29 AM EST) Anatomical Region Laterality Modality Abdomen, Pelvis Computed Tomogra phy 03/08/2017 11:2 0 AM EST Addenda Addendum by Marcio Mckeon MD on 03/28/2017 11:23 AM EST COMPARISON: CT abdomen and pelvis March 03, 2007. TECHNIQUE: After the administration of oral and intravenous contrast, multidetector CT is obtained from dome of the liver through the inferior pubic rami. Multiplanar reformatted images generated. Automated exposure control utilized. FINDINGS: The lung bases are clear. No significant pleural fluid is seen. The liver is homogeneous. No focal findings of concern are seen. No bile duct dilatation is evident. The spleen is unremarkable. The pancreas appears normal. There is a low-density mass in the left adrenal gland consistent with an adenoma. This is unchanged. The right adrenal gland is unremarkable. There are multifocal renal low-density masses consistent with cysts. <<< SOME HAVE >>> developed since prior imaging. No hydronephrosis is seen. No nephrolithiasis is noted. No periaortic lymphadenopathy is seen. The bowel pattern is non-specific with scattered diverticulosis but no findings of diverticulitis identified. The terminal ileum is unremarkable. I cannot identify a definitive appendix. No pericecal inflammatory process is seen. The urinary bladder is unremarkable. There is a left inguinal hernia with fat in the hernia sac. There are moderately prominent degenerative changes in the thoracolumbar spine with definite progression noted at L4-5 since prior imaging. IMPRESSION: Sigmoid diverticulosis without diverticulitis. No bowel distention or displacement is seen. Fat-containing left inguinal hernia. Unchanged left adrenal adenoma. Multifocal renal cysts which have increased in number since prior imaging. Minor sliding-type hiatal hernia. Mild prominence of <<< MUCOSA >>> at the GE junction is noted which may be a benign finding but if symptoms persist, endoscopy may be helpful in further assessment. TOTAL CTDIvol: 7.90 mGy S/S: Lower abdominal pain, abnormal LFTs, bloating, weight gain. Diverticulosis of the sigmoid colon. POS - [id number] Edited by: Shilpi Delgado on 03/26/2017 6:37 PM Impressions 03/08/2017 11:34 AM EST Sigmoid diverticulosis without diverticulitis. No bowel distention or displacement is seen. Fat-containing left inguinal hernia. Unchanged left adrenal adenoma. Multifocal renal cysts which have increased in number since prior imaging. Minor sliding-type hiatal hernia. Mild prominence of ventricles at the GE junction is noted which may be a benign finding but if symptoms persist, endoscopy may be helpful for further assessment. TOTAL CTDIvol: 7.90 mGy S/S: Lower abdominal pain, abnormal LFTs, bloating, weight gain diverticulosis of the sigmoid colon POS - [id number] Narrative 03/08/2017 11:34 AM EST COMPARISON: CT abdomen pelvis March 03, 2007 TECHNIQUE: After the administration of oral and intravenous contrast, multidetector CT is obtained from dome of the liver through the inferior pubic rami. Multiplanar reformatted images generated. Automated exposure control utilized. FINDINGS: The lung bases are clear. No significant pleural fluid is seen. The liver is homogeneous. No focal findings of concern are seen. No bile duct dilatation is evident. The spleen is unremarkable. The pancreas appears normal. There is a low-density mass in the left adrenal gland consistent with an adenoma. This is unchanged. The right adrenal gland is unremarkable. There are multifocal renal low-density masses consistent with cysts. Sonographic developed since prior imaging. No hydronephrosis is seen. No nephrolithiasis is noted. No periaortic lymphadenopathy is seen. The bowel pattern is non-specific with scattered diverticulosis but no findings of diverticulitis identified. The terminal ileum is unremarkable. I cannot identify definitive appendix. No pericecal inflammatory process is seen. Urinary bladder is unremarkable. There is a left inguinal hernia with fat in the hernia sac. There are moderately prominent degenerative changes in the thoracal lumbar spine with definite progression noted at L4-5 since prior imaging. Procedure Note Marcio Mckeon MD - 03/08/2017 COMPARISON: CT abdomen pelvis March 03, 2007 TECHNIQUE: After the administration of oral and intravenous contrast,multidetector CT is obtained from dome of the liver through the inferiorpubic rami. Multiplanar reformatted images generated. Automated exposurecontrol utilized. FINDINGS: The lung bases are clear. No significant pleural fluid is seen. The liver is homogeneous. No focal findings of concern are seen. No bileduct dilatation is evident. The spleen is unremarkable. The pancreas appears normal. There is a low-density mass in the left adrenal gland consistent with anadenoma. This is unchanged. The right adrenal gland is unremarkable. There are multifocal renal low-density masses consistent with cysts.Sonographic developed since prior imaging. No hydronephrosis is seen. Nonephrolithiasis is noted. No periaortic lymphadenopathy is seen. The bowel pattern is non-specific with scattered diverticulosis but nofindings of diverticulitis identified. The terminal ileum is unremarkable.I cannot identify definitive appendix. No pericecal inflammatory processis seen. Urinary bladder is unremarkable. There is a left inguinal hernia with fat in the hernia sac. There are moderately prominent degenerative changes in the thoracal lumbarspine with definite progression noted at L4-5 since prior imaging. IMPRESSION: Sigmoid diverticulosis without diverticulitis. No bowel distention ordisplacement is seen. Fat-containing left inguinal hernia. Unchanged left adrenal adenoma. Multifocal renal cysts which have increased in number since priorimaging. Minor sliding-type hiatal hernia. Mild prominence of ventricles at the GEjunction is noted which may be a benign finding but if symptoms persist,endoscopy may be helpful for further assessment. TOTAL CTDIvol: 7.90 mGy S/S: Lower abdominal pain, abnormal LFTs, bloating, weight gaindiverticulosis of the sigmoid colon POS - [id number] Emile Blake MD IMG CT ABD/PELVIS Edited Res ult - Final documented in this encounter Visit Diagnoses Diagnosis Lower abdominal pain Abdominal pain, other specified site Abnormal results of liver function studies Nonspecific abnormal results of liver function study Bloated abdomen Flatulence, eructation, and gas pain Weight gain Other symptoms concerning nutrition, metabolism, and development Lower abdominal pain Abdominal pain, other specified site Abnormal results of liver function studies Nonspecific abnormal results of liver function study Bloated abdomen Flatulence, eructation, and gas pain Weight gain Other symptoms concerning nutrition, metabolism, and development documented in this encounter Additional Health Concerns Infection Onset Date Last Indicated Resolved Time CoV-Exposed Comment:Recent close contact documented in the COVID-19 PCR/PRO order 12/04/2020 12/18/2020 12/19/2020 1:25 AM E DT CoV-Risk 01/21/2022 01/21/2022 02/01/2022 1:32 AM EST documented as of this encounter Care Teams Director Operations Broadcast Relationship Specialty Start Date End Date Kellee Gomez FNP [address] [place] [id number] PCP - General Family Medicine 01/19/17 05/19/17 [place] [address] PCP - General Internal Medicine 05/20/17 01/07/19 Andrei Coon DO [address] [place] [address] [email or web address] PCP - General Family Medicine 01/08/19 01/03/20 Lupis Copeland MD [address] [place] [address] [email or web address] PCP - General Family Medicine 01/04/20 06/09/20 Gordon Moralez MD 110 [facility] [address] [place] [address] [email or web address] PCP - General 06/10/20 07/22/20 Ja Holley MD 22 [facility] [address] [place] [address] PCP - General Internal Medicine 07/23/20 Emile Blake MD [address] [address] Gastroenterology 10/31/18 Frank Mak MD [address] [place] [address], [address] [place] [address] [email or web address] Physical Medicine and Rehabilitation 11/14/20 [place] [address] Psychiatry 02/01/21 10/07/22 Rosalia Vargas, KATEY [address] [place] [address] [email or web address] [place] 02/12/21 03/10/21 Jamari Ellison DO [address] [place] [address] Orthopedics & Sports Medicine, [facility] [place] [address] Orthopedic Surgery 07/24/21 Fredi Unger MD [address] [place] [address] 2 [place] [address] Ophthalmology 07/24/21 Elroy Calderon MD [address] [place] [address], [address] [place] [address] [email or web address] Urology 10/27/21 Ja Holley MD [address] [place] [address], [address] [place] [address] [email or web address] Insurance Assigned Provider 05/28/23 Bartolo Morgan MD [address] [place] [address] Psychiatry 10/08/22 Molly Spring, KATEY [address] [place] [address] [email or web address] 02/07/23 10/07/24 Criss Cosme [address] [place] [address] [email or web address] [facility] Community Health Worker 03/29/23 03/29/23 Maximino Dorado MD, PhD [address] [place] [phone] [email or web address] Radiation Oncology 05/03/23 Maximino Dorado MD, PhD [address] [place] [id number] [email or web address] Radiation Oncology 06/01/23 06/25/23 Lincoln Thomson MD [address] [place] [address], [address] [place] [address] Physical Medicine and Rehabilitation 06/26/23 Dhaval Slater MD [address] [place] [address] [place] [address] Neurosurgery 07/07/23 documented as of this encounter Additional Source Comments The information contained in this document represents components of the legal health record. It is not the complete legal health record.[facility]
--- OUTSIDE RECORDS SUMMARY | 2024-11-23 13:04 | XMS_ITS | Encounter Summary ---
Author Organization [facility] Address [address] [place] [address] Phone Care Team Providers Care Radio Frequency Design Engineer Name Role Phone Emlie Blake MD Unavailable [phone] Ja Holley MD Primary Care Provider + [phone] Frank Mak MD Unavailable [phone] Jamari Ellison DO Unavailable [phone] Fredi Unger MD Unavailable [phone] Elroy Calderon MD Unavailable [phone] Ja Holley MD Unavailable [phone] Bartolo Morgan MD Unavailable [phone] Molly Spring RN Unavailable [email or web address] Maximino Dorado MD, PhD Unavailable +[phone] Lincoln Thomson MD Unavailable [phone] Dhaval Slater MD Unavailable Encounter Details Date Type Department Care Team (Late st Contact Info) Description 05/29/2024 Procedure [facility], [address] [place] [address] Social History Tobacco Use Types Packs/Day Years [...] Upcoming Encounters Date Type Department Care Team ([facility] st Contact Info) Description 12/27/2024 1:30 PM EST Appointment Department of Radiation Oncology [address] [place] [address] Lincoln Burton NP [address] [place], [place] [address] [place] [address] [email or web address] 02/19/2025 3:00 PM EST Office Visit [facility] [address] [place] [address] [place] [address] Ja Holley MD [address] [place] [address], [address] [place] [address] 04/30/2025 10:30 AM EDT Office Visit [facility] [address] [place] [address] [place] [address] Fredi Elaine DO [address] [place] [address] 07/22/2025 9:40 AM EDT Office Visit [facility] [address] [place] [address] [address] Floor, [address] [place] [address] Asif Araiza MD, MS [address] [place] [address], [address] [place] [address] documented as of this encounter Visit Diagnoses Not on filedocumented in this encounter Additional Health Concerns Assessment Noted Time PHQ-9 Depression Total Score: 24 025 8:29 AM EST PHQ-2 Depression Total Score: 6 03/22/19 25 8:29 AM EST documented as of this encounter Care Teams Radio Frequency Design Engineer Relationship Specialty Start Date End Date Ja Holley MD [address] [place] [address], [address] [place] [address] PCP - General Internal Medicine 07/23/20 Emile Blake MD [address] [place] [address] Gastroenterology 10/31/18 Frank Mak MD [address] [place] [address], [address] [place] [address] [email or web address] Physical Medicine and Rehabilitation 11/14/20 Jamari Ellison DO [address] [place] [address] Orthopedics & Sports Medicine, [place] [address] Orthopedic Surgery 07/24/21 Fredi Unger MD [address] [place] [address] Ophthalmology 07/24/21 Elroy Calderon MD [address] [place] [address], [address] [place] [address] Urology 10/27/21 Ja Holley MD [address] [place] [address], [address] [place] [address] Insurance Assigned Provider 05/28/23 Bartolo Morgan MD [address] [address] Psychiatry 10/08/22 Molly Spring RN [address] [address] [email or web address] Early Childhood Teacher 02/07/23 10/07/24 Maximino Dorado MD, PhD [address] [place] [address] [email or web address] Radiation Oncology 05/03/23 Lincoln Thomson MD [address] [place] [address], 2[address] [place] [address] [email or web address] Physical Medicine and Rehabilitation 06/26/23 Dhaval Slater MD [address] [place] [address] Dr CALIX [address] [place] [address] Neurosurgery 07/07/23 documented as of this encounter Additional Source Comments The information contained in this document represents components of the legal health record. It is not the complete legal health record.[facility]
--- OUTSIDE RECORDS SUMMARY | 2024-11-23 13:04 | XMS_ITS | Encounter Summary ---
Author Organization [facility] Address [address] [place] [phone] Phone Care Team Providers Care Propellant Charge Zone Assembler Name Role Phone Kellee Gomez Allan PRICE Primary Care Provider [phone] Leonel Alegria MD Primary Care Provider Emile Blake MD Unavailable [phone] Andrei Coon DO Primary Care Provider [phone] Lupis Copeland MD Primary Care Provider [phone] Gordon Moralez MD Primary Care Provider + [phone] Ja Holley MD Primary Care Provider [phone] Frank Mak MD Unavailable [phone] Alfonzo Perkins MD Unavailable [phone] Rosalia Vargas RN Unavailable [phone] Jamari Ellison DO Unavailable [phone] Fredi Unger MD Unavailable [phone] Elroy Calderon MD Unavailable [phone] Ja Holley MD Unavailable [phone] Bartolo Morgan MD Unavailable [phone] Molly Spring RN Unavailable [email or web address] Criss Cosme Unavailable [phone] Maximino Dorado MD, PhD Unavailable [phone] Maximino Dorado MD, PhD Unavailable [phone] Lincoln Thomson MD Unavailable Dhaval Slater MD Unavailable Encounter Details Date Type Department Care Team (Latest Contact Info) Description 03/02/2017 Transcribe Orders [facility] [address] 2[address] [place] [address] Emile Blake MD [address] . [facility] 2 [place] [address] Inguinal pain, unspecified laterality (Primary Dx); Nonspecific abnormal results of liver function study Social History Tobacco Use Types Packs/Day Years [...] EST Appointment Department of Radiation Oncology [address] [place] [address] Lincoln Burton, APPARATUS ENGINEERING TECHNOLOGIST [address] [place] [address] [email or web address] 02/19/2025 3:00 PM EST Office Visit See [facility] [address] [place] [address] Ja Holley MD [address] [place] [address], [address] [place] [address] 04/30/2025 10:30 AM EDT Office Visit [facility] [address] [place] [address] Fredi Elaine DO 22 [place] [address] 07/22/2025 9:40 AM EDT Office Visit [facility] [address], [address] [place] [address] Asif Araiza MD, MS 22 [facility], [address] [address] [email or web address] documented as of this encounter Results * Sedimentation rate (ESR) (03/02/2017 10:54 AM EST) ESR 9 0 - 20 mm/h [facility] Blood 03/02/2017 10:5 4 AM EST 03/02/2017 11:04 AM EST us Emile Blake MD LAB BLOOD ORDERABLES Final R esult [address] [address] * Ferritin (03/02/2017 10:54 AM EST) FERRITIN 237 30 - 400 ug/L [facility] Blood 03/02/2017 10:5 4 AM EST 03/02/2017 11:04 AM EST us Emile Blake MD LAB BLOOD ORDERABLES Final R esult [address] [address] * C-Reactive Protein (03/02/2017 10:54 AM EST) C REACTIVE PROTEIN 0.3 0 - 0.5 mg/L [facility] Blood 03/02/2017 10:5 4 AM EST 03/02/2017 11:04 AM EST us Emile Blake MD LAB BLOOD ORDERABLES Final R esult [address] [address] * (ABNORMAL) Comprehensive metabolic panel (03/02/2017 10:54 AM EST) SODIUM 140 133 - 146 mmol/L [facility] POTASSIUM 4.9 3.3 - 5.1 mmol/L [facility] CHLORIDE 100 96 - 108 mmol/L [facility] CO2 28 21 - 35 mmol/L [facility] BUN 21(H) 6 - 19 mg/dL [facility] CREATININE 0.90 0.5 - 1.5 mg/dL [facility] GLUCOSE 115(H) 70 - 99 mg/dL [facility] ALBUMIN 4.7 3.9 - 4.8 g/dL [facility] TOTAL PROTEIN 7.6 6.5 - 8.0 g/dL [facility] CALCIUM 10.0 8.4 - 10.3 mg/dL [facility] ALKALINE PHOSPHATASE 94 39 - 117 U/L [facility] TOTAL BILIRUBIN 0.7 0 - 1.2 mg/dL [facility] AST 29 0 - 37 U/L [facility] ALT 43(H) 0 - 40 U/L [facility] GLOBULIN 2.9 1 - 4.8 g/dL [facility] EGFR >60 >60 mL/min/1.7 3m2 [facility] Comment:Abnormal if <60. If patient is -Omani, multiply the result by 1.21. ANION GAP 17 10 - 20 mmol/L [facility] Blood 03/02/2017 10:5 4 AM EST 03/02/2017 11:04 AM EST us Emile Blake MD LAB BLOOD ORDERABLES Final R esult [address] [address] * Tissue transglutaminase IgA (03/02/2017 10:54 AM EST) TTG IGA ANTIBODY <1.2 <4.0 (Negative) U/mL [facility] MED [facility] PAT+ Blood 03/02/2017 10:5 4 AM EST 03/02/2017 11:04 AM EST us Emile Blake MD LAB BLOOD ORDERABLES Final R esult Performing Organization Address City/[facility]/ZIP Co de Phone Number [facility] MED [facility] PAT+ [address] [place] [address] * Immunoglobulin A (03/02/2017 10:54 AM EST) IgA 102 70 - 400 mg/dL [facility] Blood 03/02/2017 10:5 4 AM EST 03/02/2017 11:04 AM EST us Emile Blake MD LAB BLOOD ORDERABLES Final R esult Performing Organization Address City/[facility] Co de Phone Number [facility] [address] [place] [address] * Gliadin deamidated antibody, IgG/IgA (03/02/2017 10:54 AM EST) Gliadin Ab, IGA <10.0 <20.0 (Negative) U [facility] MED [facility] PAT+ GLIADIN AB IGG <10.0 <20.0 (Negative) U [facility] MED AND PAT+ Blood 03/02/2017 10:5 4 AM EST 03/02/2017 11:04 AM EST us Emile Blake MD LAB BLOOD ORDERABLES Final R esult Performing Organization Address City/[facility] Co de Phone Number [facility] MED [facility] PAT+ [address] [place] [address] * CBC and differential (03/02/2017 10:54 AM EST) WBC 6.20 3.40 - 11.20 K/uL [facility] RBC 5.33 4.50 - 5.50 M/uL [facility] HGB 15.8 13.0 - 17.0 g/dL [facility] HCT 46.7 40.0 - 51.0 % [facility] PLT 326 130 - 400 K/uL [facility] MCV 87.6 79.0 - 98.0 fL [facility] MCH 29.6 27.0 - 34.8 pg [facility] MCHC 33.8 31.5 - 36.0 g/dL [facility] RDW 13.4 10.8 - 14.6 % [facility] MPV 10.0 9.4 - 12.4 fl [facility] NRBC 0.00 /100 WBCs [facility] ABSOLUTE NRBC 0.00 K/uL [facility] DIFF METHOD Auto [facility] NEUTS 52.8 45.30 - 77.70 % [facility] LYMPHS 33.5 12.30 - 39.70 % [facility] MONOS 8.4 4.10 - 12.80 % [facility] EOS 4.0 0 - 7.2 % [facility] BASOS 1.0 0 - 2.80 % [facility] Granulocytes, immature (%) 0.3 0.0 - 0.9 % [facility] ABSOLUTE NEUTS 3.27 1.40 - 7.70 K/uL [facility] ABSOLUTE LYMPHS 2.08 0.60 - 3.20 K/uL [facility] ABSOLUTE MONOS 0.52 0.11 - 0.59 K/uL [facility] ABSOLUTE EOS 0.25 0.01 - 0.50 K/uL [facility] ABSOLUTE BASOS 0.06 0.00 - 0.08 K/uL [facility] Granulocytes, immature 0.02 0.00 - 0.05 K/uL [facility] Blood 03/02/2017 10:5 4 AM EST 03/02/2017 11:04 AM EST us Emile Blake MD LAB BLOOD ORDERABLES Final R esult [facility] [address] [place] [address] * Smooth Muscle Antibody (03/02/2017 10:54 AM EST) ANTI-SMOOTH MUSCLE AB Negative Negative [facility] MED AND PAT+ Comment: (NOTE) ADDITIONAL INFORMATION This test was developed and its performance characteristics determined by [facility] in a manner consistent with CLIA requirements. This test has not been cleared or approved by the U.S. Food and Drug Administration. Blood 03/02/2017 10:5 4 AM EST 03/02/2017 11:04 AM EST Emile Blake MD LAB BLOOD ORDERABLES Final R esult Performing Organization Address [facility] Co de Phone Number [facility] MED [facility] PAT+ [address] [place] [address] * Antinuclear antibody (RAFA) (03/02/2017 10:54 AM EST) RAFA SCREEN ON HEP 2 Negative Negative [facility] Blood 03/02/2017 10:5 4 AM EST 03/02/2017 11:04 AM EST Emile Blake MD LAB BLOOD ORDERABLES Final R esult Performing Organization Address City/[facility]/ZIP Co de Phone Number [facility] [address] [place] [address] * Anti-Mitochondrial Antibody (AMA) (03/02/2017 10:54 AM EST) MITOCHONDRIAL AB M2 <0.1 <0.1 (Negative) U [facility] MED AND PAT+ Blood 03/02/2017 10:5 4 AM EST 03/02/2017 11:04 AM EST Emile Blake MD LAB BLOOD ORDERABLES Final R esult Performing Organization Address City/[facility]/ZIP Co de Phone Number [facility] PAT+ [address] [place] [address] * Qvncb-3-gtqyzoktzmq phenotyping (03/02/2017 10:54 AM EST) ALPHA 1 ANTITRYPSIN 112 100 - 190 mg/dL [facility] MED AND PAT+ A1A PHENOTYPE MM bands [facility] MED AND PAT+ Comment: (NOTE) A single M isoform is detected. In the context of a normal quuhq-8-cojpsitwvyz concentration, this is consistent with an MM phenotype. Blood 03/02/2017 10:5 4 AM EST 03/02/2017 11:04 AM EST us Emile Blake MD LAB BLOOD ORDERABLES Final R esult [facility] MED AND PAT+ [address] [place] [address] documented in this encounter Visit Diagnoses Diagnosis Inguinal pain, unspecified laterality- Primary Nonspecific abnormal results of liver function study documented in this encounter Additional Health Concerns Infection Onset Date Last Indicated Resolved Time CoV-Exposed Comment:Recent close contact documented in the COVID-19 PCR/PRO order 12/04/2020 12/18/2020 12/19/2020 1:25 AM E DT CoV-Risk 01/21/2022 01/21/2022 02/01/2022 1:32 AM EST documented as of this encounter Care Teams Propellant Charge Zone Assembler Relationship Specialty Start Date End Date Kellee Gomez FNP [address] [place] [address] PCP - General Family Medicine 01/19/17 05/19/17 [place] [address] PCP - General Internal Medicine 05/20/17 01/07/19 Andrei Coon DO [address] [place] [address] [email or web address] PCP - General Family Medicine 01/08/19 01/03/20 Lupis Copeland MD [address] [place] [address] [email or web address] PCP - General Family Medicine 01/04/20 06/09/20 Gordon Moralez MD [address] [address] [email or web address] PCP - General 06/10/20 07/22/20 Ja Holley MD [address] [place] [address], [address] [place] [address] PCP - General Internal Medicine 07/23/20 Emile Blake MD [address] [place] [address] Gastroenterology 10/31/18 Frank Mak MD [address] [place] [address], [address] [place] [address] [email or web address] Physical Medicine and Rehabilitation 11/14/20 [place] [address] Psychiatry 02/01/21 10/07/22 Rosalia Vargas, KATEY [address] [place], [place] [id number] [email or web address] [facility] Faceter 02/12/21 03/10/21 Jamari Ellison DO [address] [place] [address] Orthopedics & Sports Medicine, [place] [address] [email or web address] Orthopedic Surgery 07/24/21 Fredi Unger MD [address] [place] [address] 2 [place] [address] Ophthalmology 07/24/21 Elroy Calderon MD [address] [place] [address], [address] [place] [address] [email or web address] Urology 10/27/21 Ja Holley MD [address] [place] [address], [address] [place] [address] [email or web address] Insurance Assigned Provider 05/28/23 Bartolo Morgan MD [address] [place] [address] Psychiatry 10/08/22 Molly Spring RN [address] [place] [address] [email or web address] 02/07/23 10/07/24 Criss Cosme [address] [place] [address] [email or web address] [facility] Community Health Worker 03/29/23 03/29/23 Maximino Dorado MD, PhD [address] [place] [address] [email or web address] Radiation Oncology 05/03/23 Maximino Dorado MD, PhD [address] [place] [address] [email or web address] Radiation Oncology 06/01/23 06/25/23 Lincoln Thomson MD [address] [place] [address], 2nd [place] [address] [email or web address] Physical Medicine and Rehabilitation 06/26/23 Dhaval Slater MD [address] [place] [address] [place] [address] Neurosurgery 07/07/23 documented as of this encounter Additional Source Comments The information contained in this document represents components of the legal health record. It is not the complete legal health record.[facility]
--- OUTSIDE RECORDS SUMMARY | 2024-11-23 13:04 | XMS_ITS | Encounter Summary ---
Author Organization [facility] Address [address] [place] [address] Phone Care Team Providers Care Nipple Maker Name Role Phone Emile Blake MD Unavailable Ja Holley MD Primary Care Provider [phone] Frank Mak MD Unavailable Alfonzo Perkins MD Unavailable Rosalia Vargas RN Unavailable [phone] Jamari Ellison DO Unavailable Fredi Unger MD Unavailable Elroy Calderon MD Unavailable [phone] Ja Holley MD Unavailable [phone] Bartolo Morgan MD Unavailable [phone] Molly Spring RN Unavailable [email or web address] Criss Cosme Unavailable [phone] Maximino Dorado MD, PhD Unavailable [phone] Maximino Dorado MD, PhD Unavailable [phone] Lincoln Thomson MD Unavailable Dhaval Slater MD Unavailable Encounter Details Date Type Department Care Team (Late st Contact Info) Description 02/04/2021 [facility] [address] [facility] 101 [place] [address] Eunice Rajan [email or web address] Social History Tobacco Use Types Packs/Day Years [...] high school, GED, job training, learning the Tajik language, technical skills, or developing parenting skills)? 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 st Contact Info) Description 12/27/2024 1:30 PM EST Appointment Department of Radiation Oncology [address] [address] Lincoln Burton, MABLE 75 [facility] ASB1-L2 [place] [address] [email or web address] 02/19/2025 3:00 PM EST Office Visit [facility] [address] [place] [address] Ja Holley MD [address] [place] [address], [address] [place] [address] 04/30/2025 10:30 AM EDT Office Visit [facility] [address] [place] [address] [place] [address] Fredi Elaine DO [address] [place] [address] 07/22/2025 9:40 AM EDT Office Visit [facility] [address] [place] [address] 3rd Floor, [address] [place] [address] Asif Araiza MD, MS [address] [place] [address], [address] [place] [address] documented as of this encounter Visit Diagnoses Not on filedocumented in this encounter Additional Health Concerns Infection Onset Date Last Indicated Resolved Time CoV-Risk 01/21/2022 01/21/2022 02/01/2022 1:32 AM EST Assessment Noted Time PHQ-9 Depression Total Score: 23 021 8:56 AM EDT PHQ-2 Depression Total Score: 6 07/24/19 21 8:56 AM EDT documented as of this encounter Care Teams Nipple Maker Relationship Specialty Start Date End Date Ja Holley MD [address] [place] [address], [address] [place] [address] PCP - General Internal Medicine 07/23/20 Emile Blake MD [address] [place] [address] Gastroenterology 10/31/18 Frank Mak MD [address] [place] [address], [address] [place] [address] [email or web address] Physical Medicine and Rehabilitation 11/14/20 [place] [address] Psychiatry 02/01/21 10/07/22 Rosalia Vargas, KATEY [address] [place] [address] [employer] Dimethylaniline Sulfator Operator 02/12/21 03/10/21 Jamari Ellison DO [address] [place] [address] [facility] [place] [address] Orthopedic Surgery 07/24/21 Fredi Unger MD [address] [place] [address] Ophthalmology 07/24/21 Elroy Calderon MD [address] [place] [address] [email or web address] Urology 10/27/21 Ja Holley MD 22 [facility], [address] [place] [address] [email or web address] Insurance Assigned Provider 05/28/23 Bartolo oMrgan MD [address] [place] [address] Psychiatry 10/08/22 Molly Spring RN [address] [place] [address] [email or web address] Dimethylaniline Sulfator Operator 02/07/23 10/07/24 Criss Cosme [address] [place] [address] [email or web address] [facility] Community Health Worker 03/29/23 03/29/23 Maximino Dorado MD, PhD [address] [place] [address] [email or web address] Radiation Oncology 05/03/23 Maximino Dorado MD, PhD [address] [place] [address] [email or web address] Radiation Oncology 06/01/23 06/25/23 Lincoln Thomson MD [address] [place] [address], 2nd [place] [address] [email or web address] Physical Medicine and Rehabilitation 06/26/23 Dhaval Slater MD [address] [place] [address] [place] [address] Neurosurgery 07/07/23 documented as of this encounter Additional Source Comments The information contained in this document represents components of the legal health record. It is not the complete legal health record.[facility]
--- OUTSIDE RECORDS SUMMARY | 2024-11-23 13:04 | XMS_ITS | Encounter Summary ---
Author Organization [facility] Address [address] [place] [address] Phone Care Team Providers Care Filler Mixer Name Role Phone Emile Blake MD Unavailable Ja Holley MD Primary Care Provider [phone] Frank Mak MD Unavailable Alfonzo Perkins MD Unavailable Rosalia Vargas RN Unavailable [phone] Jamari Ellison DO Unavailable [phone] Fredi Unger MD Unavailable Elroy Calderon MD Unavailable [phone] Ja Holley MD Unavailable [phone] Bartolo Morgan MD Unavailable [phone] Molly Spring RN Unavailable [email or web address] Criss Cosme Unavailable +[phone] Maximino Dorado MD, PhD Unavailable [phone] Maximino Dorado MD, PhD Unavailable [phone] Lincoln Thomson MD Unavailable Dhaval Slater MD Unavailable Encounter Details Date Type Department Care Team (Late st Contact Info) Description 02/24/2021 Telephone CuiCommissioner [address] [place] [address] Ja Holley MD 22 [facility], [address] [place] [address] [email or web address] Social History Tobacco Use Types Packs/Day Years [...] high school, GED, job training, learning the [place] language, technical skills, or developing parenting skills)? 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 Had gone to Dr Thomson's office. Patient said they recommended EMG referral to Dr Haas. Patient would also like referral to Dr Thomson for back pain and injection. * Sandrita Hansen - 02/24/2021 10:42 AM EST Patient presents in office. Dr Calderon wants EMG but patient does not want to go [facility]--will go anywhere else but [facility]. Patient is asking for valium because patient can't sleep at night because of pain. Patient says that he is ready to flip out because of pain. Patient state again that he does not want to go to [facility] and that valium is needed. documented in this encounter Plan of Treatment Upcoming Encounters Date Type Department Care Team (Late st Contact Info) Description 12/27/2024 1:30 PM EST Appointment Department of Radiation Oncology [address] [place] [address] Lincoln Burton, MABLE [address] [place] [address] [email or web address] 02/19/2025 3:00 PM EST Office Visit See [facility] [address] [place] [address] Ja Holley MD [address] [place] [address], [address] [place] [address] 04/30/2025 10:30 AM EDT Office Visit [facility] [address] [place] [address] Fredi Elaine DO 22 [place] [address] 07/22/2025 9:40 AM EDT Office Visit [facility] [address] Floor, [address] [place] [address] Asif Araiza MD, MS 22 [facility], [address] [place] [address] documented as of this encounter Visit Diagnoses Not on filedocumented in this encounter Additional Health Concerns Infection Onset Date Last Indicated Resolved Time CoV-Risk 01/21/2022 01/21/2022 02/01/2022 1:32 AM EST Assessment Noted Time PHQ-9 Depression Total Score: 23 021 8:56 AM EDT PHQ-2 Depression Total Score: 6 07/24/19 21 8:56 AM EDT documented as of this encounter Care Teams Filler Mixer Relationship Specialty Start Date End Date Ja Holley MD [address] [place] [address], [address] [place] [address] PCP - General Internal Medicine 07/23/20 Emile Blake MD [address] [place] [address] Gastroenterology 10/31/18 Frank Mak MD [address] [place] [address], [address] [place] [address] [email or web address] Physical Medicine and Rehabilitation 11/14/20 [place] [address] [email or web address] Psychiatry 02/01/21 10/07/22 Rosalia Vargas RN 30 [place] [address] [email or web address] iCMP Transportation Dispatcher 02/12/21 03/10/21 Jamari Ellison DO [address] [place] [address] Orthopedics & Sports Medicine, [place] [address] [email or web address] Orthopedic Surgery 07/24/21 Fredi Unger MD [address] [place] [address] 2 [place] [address] Ophthalmology 07/24/21 Elroy Calderon MD [address] [place] [address], [address] [place] [address] [email or web address] Urology 10/27/21 Ja Holley MD [address] [place] [address], [address] [place] [address] [email or web address] Insurance Assigned Provider 05/28/23 Bartolo Morgan MD 201 [facility] 5 [place] [address] Psychiatry 10/08/22 Molly Spring RN 201 [facility] 5 [place] [address] [email or web address] Transportation Dispatcher 02/07/23 10/07/24 Criss Cosme [address] [place] [address] [email or web address] [facility] Community Health Worker 03/29/23 03/29/23 Maximino Dorado MD, PhD [address] [place] [address] [email or web address] Radiation Oncology 05/03/23 Maximino Dorado MD, PhD [address] [place] [address] [email or web address] Radiation Oncology 06/01/23 06/25/23 Lincoln Thomson MD [address] [place] [address], [address] [place] [address] [email or web address] Physical Medicine and Rehabilitation 06/26/23 Dhaval Slater MD [address] [place] [address] [place] [address] Neurosurgery 07/07/23 documented as of this encounter Additional Source Comments The information contained in this document represents components of the legal health record. It is not the complete legal health record.[facility]
--- OUTSIDE RECORDS SUMMARY | 2024-11-23 13:04 | XMS_ITS | Encounter Summary ---
Author Organization [facility] Address [address] [place] [address] Phone Care Team Providers Care Drafter Civil (Cad) Name Role Phone Kellee Gomez Allan PRICE Primary Care Provider [phone] Leonel Alegria MD Primary Care Provider Emile Blake MD Unavailable [phone] Andrei Coon DO Primary Care Provider [phone] Lupis Copeland MD Primary Care Provider Gordon Moralez MD Primary Care Provider + [phone] Ja Holley MD Primary Care Provider [phone] Frank Mak MD Unavailable [phone] Alfonzo Perkins MD Unavailable [phone] Rosalia Vargas RN Unavailable Jamari Ellison DO Unavailable [phone] Fredi Unger MD Unavailable [phone] Elroy Calderon MD Unavailable [phone] Ja Holley MD Unavailable [phone] Bartolo Morgan MD Unavailable [phone] Molly Spring RN Unavailable [email or web address] Criss Cosme Unavailable [phone] Maximino Dorado MD, PhD Unavailable [phone] Maximino Dorado MD, PhD Unavailable [phone] Lincoln Thomson MD Unavailable [phone] Dhaval Slater MD Unavailable Encounter Details Date Type Department Care Team (Late Contact Info) Description 05/19/2017 Ancillary Orders Virtual Department [address] [place] [address] Katty Love PA-C [address] [place] [address] Abdominal bloating; Nausea; Gastroesophageal reflux disease, esophagitis presence not specified Social History Tobacco Use Types Packs/Day Years [...] PM EST Appointment Department of Radiation Oncology [address] [place] [address] Lincoln Burton, CLIENT CARE REPRESENTATIVE [address] [place] [address] [email or web address] 02/19/2025 3:00 PM EST Office Visit See [facility] [address] [place] [address] Ja Holley MD [address] [place] [address], [address] [place] [address] 04/30/2025 10:30 AM EDT Office Visit [facility] [address] [place] [address] Fredi Elaine DO 22 [place] [address] 07/22/2025 9:40 AM EDT Office Visit [facility] [address] Floor, [address] [place] [address] Asif Araiza MD, MS 22 [facility], [address] [address] [email or web address] documented as of this encounter Results * NM GASTRIC EMPTYING SOLID PHASE (05/20/2017 2:07 PM EDT) Anatomical Region Laterality Modality Abdomen, Pelvis Nuclear Medicine 05/20/2017 2:35 PM EDT Impressions 05/20/2017 2:39 PM EDT Normal gastric emptying at all 3 time points assessed. No findings of gastroparesis are seen. S/S: Abdominal bloating, nausea, gastroesophageal reflux disease, esophagitis POS - [id number] Narrative 05/20/2017 2:39 PM EDT The patient is given an oral meal of 0.976 mCi of Tc99m labeled sulfur colloid with egg whites, toast, jam and water. Evaluation of gastric emptying over four hours is obtained. At one hour there is 75.9% residual activity in the stomach which is within the normal range. At two hours there is 44.6% residual activity in the stomach which is within the normal range. At four hours there is 1.5% residual activity in the stomach which is within the normal range. No obvious gastroesophageal reflux is seen. NORMAL RANGE One hour 37-90% Two hours 30-60% Four hours 0-10% Procedure Note Marcio Mckeon MD - 05/20/2017 The patient is given an oral meal of 0.976 mCi of Tc99m labeled sulfurcolloid with egg whites, toast, jam and water. Evaluation of gastricemptying over four hours is obtained. At one hour there is 75.9% residual activity in the stomach which iswithin the normal range. At two hours there is 44.6% residual activity in the stomach which iswithin the normal range. At four hours there is 1.5% residual activity in the stomach which iswithin the normal range. No obvious gastroesophageal reflux is seen. NORMAL RANGE One hour 37-90% Two hours 30-60% Four hours 0-10% IMPRESSION: Normal gastric emptying at all 3 time points assessed. No findings ofgastroparesis are seen. S/S: Abdominal bloating, nausea, gastroesophageal reflux disease,esophagitis POS - [id number] Katty Love PA-C IMG NM ABDOMEN Final Result documented in this encounter Visit Diagnoses Diagnosis Abdominal bloating Flatulence, eructation, and gas pain Nausea Nausea alone Gastroesophageal reflux disease, esophagitis presence not specified Abdominal bloating Flatulence, eructation, and gas pain Nausea Nausea alone Gastroesophageal reflux disease, esophagitis presence not specified documented in this encounter Additional Health Concerns Infection Onset Date Last Indicated Resolved Time CoV-Exposed Comment:Recent close contact documented in the COVID-19 PCR/PRO order 12/04/2020 12/18/2020 12/19/2020 1:25 AM E DT CoV-Risk 01/21/2022 01/21/2022 02/01/2022 1:32 AM EST documented as of this encounter Care Teams Drafter Civil (Cad) Relationship Specialty Start Date End Date Kellee Gomez FNP [address] [place] [address] PCP - General Family Medicine 01/19/17 05/19/17 [place] [address] PCP - General Internal Medicine 05/20/17 01/07/19 Andrei Coon DO [address] [place] [address] [email or web address] PCP - General Family Medicine 01/08/19 01/03/20 Lupis Copeland MD [address] [place] [address] [email or web address] PCP - General Family Medicine 01/04/20 06/09/20 Gordon Moralez MD [address] [place] [address] Saji [email or web address] g PCP - General 06/10/20 07/22/20 Ja Holley MD [address] [place] [address], [address] [place] [address] PCP - General Internal Medicine 07/23/20 Emile Blake MD [address] [place] [address] Gastroenterology 10/31/18 Frank Mak MD [address] [place] [address], [address] [place] [address] [email or web address] Physical Medicine and Rehabilitation 11/14/20 [place] [address] Psychiatry 02/01/21 10/07/22 Rosalia Vargas, KATEY [address] [place] [address] [email or web address] [facility] Resaw Operator 02/12/21 03/10/21 Jamari Ellison DO [address] [place] [address] [facility] [place] [address] [email or web address] Orthopedic Surgery 07/24/21 Fredi Unger MD [address] [place] [address] 2 [place] [address] Ophthalmology 07/24/21 Elroy Calderon MD [address] [place] [address], [address] [place] [address] [email or web address] Urology 10/27/21 Ja Holley MD [address] [place] [address], [address] [place] [address] [email or web address] Insurance Assigned Provider 05/28/23 Bartolo Morgan MD [address] [place] [address] Psychiatry 10/08/22 Molly Spring RN [address] [place] [address] [email or web address] 02/07/23 10/07/24 Criss Cosme 10 [place] [address] [email or web address] [facility] Community Health Worker 03/29/23 03/29/23 Maximino Dorado MD, PhD [address] [place] [address] [email or web address] [email or web address] Oncology 05/03/23 Maximino Dorado MD, PhD [address] [place] [address] [email or web address] Oncology 06/01/23 06/25/23 Lincoln Thomson MD [address] [place] [address], 2nd [place] [address] Physical Medicine and Rehabilitation 06/26/23 Dhaval Slater MD [address] [place] [address] [place] [address] Neurosurgery 07/07/23 documented as of this encounter Additional Source Comments The information contained in this document represents components of the legal health record. It is not the complete legal health record.[facility]
--- OUTSIDE RECORDS SUMMARY | 2024-11-23 13:04 | XMS_ITS | Encounter Summary ---
Author Organization [facility] Address [address] [place] [address] Phone Care Team Providers Care Pharmacist In Charge Name Role Phone Kellee Gomez Allan PRICE Primary Care Provider [phone] Leonel Alegria MD Primary Care Provider Emile Blake MD Unavailable [phone] Andrei Coon DO Primary Care Provider [phone] Lupis Copeland MD Primary Care Provider Gordon Moralez MD Primary Care Provider + [phone] Ja Holley MD Primary Care Provider [phone] Frank Mak MD Unavailable [phone] Alfonzo Perkins MD Unavailable [phone] Rosalia Vargas RN Unavailable [phone] Jamari Ellison DO Unavailable [phone] Fredi Unger MD Unavailable [phone] Elroy Calderon MD Unavailable [phone] Ja Holley MD Unavailable [phone] Bartolo Morgan MD Unavailable [phone] Molly Spring RN Unavailable [email or web address] Criss Cosme Unavailable [phone] Maximino Dorado MD, PhD Unavailable [phone] Maximino Dorado MD, PhD Unavailable [phone] Lincoln Thomson MD Unavailable Dhaval Slater MD Unavailable Encounter Details Date Type Department Care Team (Late st Contact Info) Description 03/02/2017 Procedure Pass [facility] Ct Scan - [address] [address] Social History Tobacco Use Types Packs/Day Years [...] PM EST Appointment Department of Radiation Oncology [address] [place] [address] Lincoln Burton, ASSEMBLER RUBBER FOOTWEAR [address] [place] [address] [email or web address] 02/19/2025 3:00 PM EST Office Visit [address] [place] [address] Ja Holley MD [address] [place] [address], [address] [place] [address] 04/30/2025 10:30 AM EDT Office Visit [facility] [address] [place] [address] [place] [address] Fredi Elaine DO 22 [place] [address] 07/22/2025 9:40 AM EDT Office Visit [facility] 22 [facility] 3rd Floor, [address] [place] [address] Asif Araiza MD, MS 22 [facility], [address] [place] [address] [email or web address] documented as of this encounter Visit Diagnoses Not on filedocumented in this encounter Additional Health Concerns Infection Onset Date Last Indicated Resolved Time CoV-Exposed Comment:Recent close contact documented in the COVID-19 PCR/PRO order 12/04/2020 12/18/2020 12/19/2020 1:25 AM E DT CoV-Risk 01/21/2022 01/21/2022 02/01/2022 1:32 AM EST documented as of this encounter Care Teams Pharmacist In Charge Relationship Specialty Start Date End Date Kellee Gomez FNP [address] [place] [address] [email or web address] PCP - General Family Medicine 01/19/17 05/19/17 [place] [address] [email or web address] PCP - General Internal Medicine 05/20/17 01/07/19 Andrei Coon DO [address] [place] [address] [email or web address] PCP - General Family Medicine 01/08/19 01/03/20 Lupis Copeland MD [address] [address] [email or web address] PCP - General Family Medicine 01/04/20 06/09/20 Gordon Moralez MD [address] [facility] [address] [place], [place] [address] Saji [email or web address] g PCP - General 06/10/20 07/22/20 Ja Holley MD 22 [facility], [address] [place] [address] PCP - General Internal Medicine 07/23/20 Emile Blake MD [address] [address] Gastroenterology 10/31/18 Frank Mak MD 22 [facility], [address] [place] [address] [email or web address] Physical Medicine and Rehabilitation 11/14/20 [place] [address] Psychiatry 02/01/21 10/07/22 Rosalia Vargas, KATEY 30 [place] [address] iCMP Commercial Shrimping Captain 02/12/21 03/10/21 Jamari Ellison DO [address] [place] [address] [facility] [address] Orthopedic Surgery 07/24/21 Fredi Unger MD [address] [place] [address] 2 [place] [address] Ophthalmology 07/24/21 Elroy Calderon MD [address] [place] [address] [address] [place] [address] [email or web address] Urology 10/27/21 Ja Holley MD [address] [place] [address], [address] [place] [address] [email or web address] Insurance Assigned Provider 05/28/23 Bartolo Morgan MD [address] [place] [address] Psychiatry 10/08/22 Molly Spring RN [address] [place] [address] [email or web address] Commercial Shrimping Captain 02/07/23 10/07/24 Criss Cosme 10 [place] [address] [email or web address] [facility] Community Health Worker 03/29/23 03/29/23 Maximino Dorado MD, PhD [address] [place] [address] [email or web address] Radiation Oncology 05/03/23 Maximino Dorado MD, PhD [address] [place] [address] [email or web address] Radiation Oncology 06/01/23 06/25/23 Lincoln Thomson MD [address] [place] [address], 2nd [place] [address] Physical Medicine and Rehabilitation 06/26/23 Dhaval Slater MD [address] [place] [address] [place] [address] Neurosurgery 07/07/23 documented as of this encounter Additional Source Comments The information contained in this document represents components of the legal health record. It is not the complete legal health record.[facility]
--- OUTSIDE RECORDS SUMMARY | 2024-11-23 13:05 | XMS_ITS | Encounter Summary ---
Author Organization [facility] Address [address] [place] [address] Phone Care Team Providers Care Media Sales Consultant Name Role Phone Kellee Gomez Allan PRICE Primary Care Provider [phone] Leonel Alegria MD Primary Care Provider Emile Blake MD Unavailable [phone] Andrei Coon DO Primary Care Provider [phone] Lupis Copeland MD Primary Care Provider [phone] Gordon Moralez MD Primary Care Provider + [phone] Ja Holley MD Primary Care Provider [phone] Frank Mak MD Unavailable [phone] Alfonzo Perkins MD Unavailable [phone] Rosalia Vargas RN Unavailable [phone] Jamari Ellison DO Unavailable +[phone] Fredi Unger MD Unavailable +[phone] Elroy Calderon MD Unavailable [phone] Ja Holley MD Unavailable +[phone] Bartolo Morgan MD Unavailable [phone] Molly Spring RN Unavailable [email or web address] Criss Cosme Unavailable Maximino Dorado MD, PhD Unavailable +[phone] Maximino Dorado MD, PhD Unavailable +[phone] Lincoln Thomson MD Unavailable [phone] Dhaval Slater MD Unavailable Encounter Details Date Type Department Care Team (Latest Contact Info) Description 01/19/2017 Transcribe Orders [facility] [address] [address] Dorita Mcelroy PA 10 [place] [address] Abdominal pain, epigastric (Primary Dx) Social History Tobacco Use Types [...] PM EST Appointment Department of Radiation Oncology [address] [place] [address] Lincoln Burton, DESIGN DIRECTOR [address] [place] [address] [email or web address] 02/19/2025 3:00 PM EST Office Visit See [facility] Medicine [address] [place] [address] [place] [address] Ja Holley MD [address] [facility], [address] [place] [address] 04/30/2025 10:30 AM EDT Office Visit [facility] [address] [place] [address] [place] [address] Fredi Elaine DO [address] [place] [address] 07/22/2025 9:40 AM EDT Office Visit [facility] [address] [facility] 3rd Floor, [address] [place] [address] Asif Araiza MD, MS [address] [facility], [address] [place] [address] [email or web address] documented as of this encounter Results * Lipase (01/19/2017 11:41 AM EST) LIPASE 32 16 - 63 U/L [facility] Blood 01/19/2017 11:4 1 AM EST 01/19/2017 11:45 AM EST us Dorita SALES LAB BLOOD ORDERABLES Final Result Performing Organization Address City/State/[facility] Co de Phone Number [facility] [address] [place] [address] * (ABNORMAL) Comprehensive metabolic panel (01/19/2017 11:41 AM EST) SODIUM 140 133 - 146 mmol/L [facility] POTASSIUM 4.5 3.3 - 5.1 mmol/L [facility] CHLORIDE 101 96 - 108 mmol/L [facility] CO2 29 21 - 35 mmol/L [facility] BUN 19 6 - 19 mg/dL [facility] CREATININE 1.10 0.5 - 1.5 mg/dL [facility] GLUCOSE 97 70 - 99 mg/dL [facility] ALBUMIN 4.3 3.9 - 4.8 g/dL [facility] TOTAL PROTEIN 7.1 6.5 - 8.0 g/dL [facility] CALCIUM 9.7 8.4 - 10.3 mg/dL [facility] ALKALINE PHOSPHATASE 89 39 - 117 U/L [facility] TOTAL BILIRUBIN 0.6 0 - 1.2 mg/dL [facility] AST 48(H) 0 - 37 U/L [facility] ALT 64(H) 0 - 40 U/L [facility] GLOBULIN 2.8 1 - 4.8 g/dL [facility] EGFR >60 60 - 1000 mL/min/1.7 3m2 [facility] Comment:Abnormal if <60. If patient is -Indian, multiply the result by 1.21. ANION GAP 15 10 - 20 mmol/L [facility] Blood 01/19/2017 11:4 1 AM EST 01/19/2017 11:45 AM EST us Dorita SALES LAB BLOOD ORDERABLES Final Result [facility] [address] [place] [address] * CBC and differential (01/19/2017 11:41 AM EST) WBC 6.48 3.40 - 11.20 K/uL [facility] RBC 5.16 4.50 - 5.50 M/uL [facility] HGB 15.1 13.0 - 17.0 g/dL [facility] HCT 44.7 40.0 - 51.0 % [facility] PLT 280 130 - 400 K/uL [facility] MCV 86.6 79.0 - 98.0 fL [facility] MCH 29.3 27.0 - 34.8 pg [facility] MCHC 33.8 31.5 - 36.0 g/dL [facility] RDW 13.2 10.8 - 14.6 % [facility] MPV 9.8 9.4 - 12.4 fl [facility] NRBC 0.00 /100 WBCs [facility] ABSOLUTE NRBC 0.00 K/uL [facility] DIFF METHOD Auto [facility] NEUTS 50.0 45.30 - 77.70 % [facility] LYMPHS 36.7 12.30 - 39.70 % [facility] MONOS 8.8 4.10 - 12.80 % [facility] EOS 2.9 0 - 7.2 % [facility] BASOS 1.1 0 - 2.80 % [facility] Granulocytes, immature (%) 0.5 0.0 - 0.9 % [facility] ABSOLUTE NEUTS 3.24 1.40 - 7.70 K/uL [facility] ABSOLUTE LYMPHS 2.38 0.60 - 3.20 K/uL [facility] ABSOLUTE MONOS 0.57 0.11 - 0.59 K/uL [facility] ABSOLUTE EOS 0.19 0.01 - 0.50 K/uL [facility] ABSOLUTE BASOS 0.07 0.00 - 0.08 K/uL [facility] Granulocytes, immature 0.03 0.00 - 0.05 K/uL [facility] Blood 01/19/2017 11:4 1 AM EST 01/19/2017 11:45 AM EST us Dorita SALES LAB BLOOD ORDERABLES Final Result [address] [address] documented in this encounter Visit Diagnoses Diagnosis Abdominal pain, epigastric- Primary documented in this encounter Additional Health Concerns Infection Onset Date Last Indicated Resolved Time CoV-Exposed Comment:Recent close contact documented in the COVID-19 PCR/PRO order 12/04/2020 12/18/2020 12/19/2020 1:25 AM E DT CoV-Risk 01/21/2022 01/21/2022 02/01/2022 1:3 2 AM EST documented as of this encounter Care Teams Media Sales Consultant Relationship Specialty Start Date End Date Kellee Gomez FNP [address] [place] [address] [email or web address] PCP - General Family Medicine 01/19/17 05/19/17 [place] [address] [email or web address] PCP - General Internal Medicine 05/20/17 01/07/19 Andrei Coon DO [address] [place] [address] [email or web address] PCP - General Family Medicine 01/08/19 01/03/20 Lupis Copeland MD [address] [place] [address] [email or web address] PCP - General Family Medicine 01/04/20 06/09/20 Gordon Moralez MD [address] [address] Saji [email or web address] PCP - General 06/10/20 07/22/20 Ja Holley MD [address] [facility], [address] [place] [address] PCP - General Internal Medicine 07/23/20 Emile Blake MD [address] [address] Gastroenterology 10/31/18 Frank Mak MD [address] [place] [address], [address] [place] [address] [email or web address] Physical Medicine and Rehabilitation 11/14/20 [place] [address] Psychiatry 02/01/21 10/07/22 Rosalia Vargas, KATEY 30 [place] [address] iCMP Soft Iron Inspector 02/12/21 03/10/21 Jamari Ellison DO [address] [place] [address] Orthopedics & Sports Medicine, [place] [address] [email or web address] Orthopedic Surgery 07/24/21 Fredi Ungre MD [address] [place] [address] 2 [place] [address] Ophthalmology 07/24/21 Elroy Calderon MD [address] [place] [address], [address] [place] [address] [email or web address] Urology 10/27/21 Ja Holley MD [address] [place] [address], [address] [place] [address] [email or web address] Insurance Assigned Provider 05/28/23 Bartolo Morgan MD [address] [place] [address] Psychiatry 10/08/22 Molly Spring RN [address] [place] [address] [email or web address] Soft Iron Inspector 02/07/23 10/07/24 Criss Cosme 10 [place] [address] [email or web address] [facility] Community Health Worker 03/29/23 03/29/23 Maximino Dorado MD, PhD [address] [place] [address] [email or web address] Radiation Oncology 05/03/23 Maximino Dorado MD, PhD [address] [place] [address] [email or web address] Radiation Oncology 06/01/23 06/25/23 Lincoln Thomson MD [address] [place] [address], 2nd [place] [address] Physical Medicine and Rehabilitation 06/26/23 Dhaval Slater MD [address] [place] [address] [place] [address] Neurosurgery 07/07/23 documented as of this encounter Additional Source Comments The information contained in this document represents components of the legal health record. It is not the complete legal health record.[facility]
== END 2024-11-23 12:40 | disposition home or self-care (01) ==
PROVIDERS: PCP Internal Medicine; Visit Provider Internal Medicine
DX: M47.816 Spondylosis without myelopathy or radiculopathy, lumbar region (principal)
CPT/HCPCS: 99213

== ENCOUNTER → 2024-11-23 12:09 | Outpatient (BNVA) | payer MEDICARE, MEDICAID, SELFPAY | PROVIDERS: PCP Internal Medicine; Visit Provider Internal Medicine | DX: M47.816 Spondylosis without myelopathy or radiculopathy, lumbar region (principal) | CPT/HCPCS: 99212 ==

== ENCOUNTER 2024-12-13 06:23 | Outpatient (REF) | payer MEDICARE, MEDICAID, SELFPAY ==
--- OUTSIDE RECORDS SUMMARY | 2006-04-20 01:00 | XMS_ITS | Encounter Summary ---
Author Organization [facility] Address [address] [facility] [address] [place] [address] Phone Care Team Providers Care Gas Torch Solderer Name Role Phone Unavailable Primary Care Provider Unavailabl e Encounter Details Date Type Department Care Team (Late st Contact Info) Description 04/20/2006 Hospital Encounter [facility] [address] [place] [address] Reese Villegas PA-C [address] [facility] [place] [address] [email or web address] Social History Tobacco Use Types Packs/Day Years [...] work, study, or receive health care? No 04/06/2023 Education Answer Date Recorded Are you interested in more education? Not on francisca e 07/26/2022 Are you concerned about learning? Not on file 07/26/2022 No 07/26/2022 No 07/26/2022 Food Answer Date Recorded Within the past 6 months we worried whether our food would run out before we got money to buy more. Sometimes True 024 Within the past 6 months the food we bought just didn't last and we didn't have enough money to get more. Never True 03/24 Residential Stability Answer Date Recor ded What is your housing situation today? I have bolivar toro 04/06/2023 How many times have you move d in the past 12 months? Zero (I did not move) 04/06/2023 Paying for Meds Answer Date Recorded Do you have trouble paying for medicines? No 04/06/2023 Paying Utility Bills Answer Date Record ed Do you have trouble paying your heating or elect ricity bill? No 04/06/2023 Transportation Answer Date Recorded Has the lack of transportati on kept you from medical appointments or from getting medications? No 04/06/2023 Unemployment Answer Date Recorded Are you currently unemployed or working on a part-time or temporary basis, and looking for work? Yes 07/23/2020 Digital Access Answer Date Recorded No 09/13/2024 No 09/13/2024 Reliable internet access at home? Not on file 09/13/2024 Device with a working camera? Not on file Intimate Partner Violence Answer Date R ecorded Are you denied basic needs s uch as food, clothing, or medical care? No 10/08/2023 In the past 12 months have y ou been in a relationship with a person who hurts, threatens, or tries to control you? No 10/08/2023 Are you denied basic needs s uch as food, clothing, or medical care? No 10/08/2023 In the past 12 months have y ou been in a relationship with a person who hurts, threatens, or tries to control you? 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 Not on file disabled Not on file Not on file Not on file documented as of this encounter Functional Status * Calculated C-SSRS Risk Score (Lifetime/Recent) Answer Date of Assessment Author No Risk Indicated 10/08/2023 10:04 PM EDT Antonia Kuhn RN * [place] Suicide Severity Rating Scale (Screener/Recent Self-Report) Question [...] Care Team (Late st Contact Info) Description 12/28/2024 1:00 PM EST Appointment Department of Radiation Oncology [address] [place] [address] Susy Murphy PA-C [address] [place], [place] [address]am [place] [address] [email or web address] 02/19/2025 3:00 PM EST Office Visit [address] [address] Ja Holley MD [address] [place] [address], [address] [place] [address] 04/30/2025 10:30 AM EDT Office Visit [facility] [address] [place] [address] Fredi Elaine DO [address] [place] [address] 07/22/2025 9:40 AM EDT Office Visit [facility] [address] [place] [address] 3rd Floor, [address] [place] [address] Asif Araiza MD, MS [address] [place] [address], [address] [address] Scheduled Procedures Name Priority Associated Diagnoses Date/Ti ri COLONOSCOPY Gastroesophageal reflux disease with esophagitis without hemorrhage ESOPHAGOGASTRODUODENOSCOPY Gastroesophageal reflux disease with esophagitis without hemorrhage documented as of this encounter Procedures Procedure Name Priority Date/Time Associated Diagnosis Comments XR LOWER EXTREMITY OUTSIDE (NO INTERPRETATION) Routine 04/20/2006 12:00 AM EST documented in this encounter Results * XR Lower Extremity Outside (No Interpretation) (04/20/2006 12:00 AM EST) Narrative [facility] [place] [place] IMG INTERFACES - 11/22/2019 1:12 PM EDT This study is for PACS storage only and not for interpretation. Reese Villegas PA-C IMG OUTSIDE IMAGING W/OUT IN TERPRETATION Final Result [facility] [place] [place] IMG INTERFACES documented in this encounter Visit Diagnoses Not on filedocumented in this encounter Additional Health Concerns Infection Onset Date Last Indicated Resolved Time CoV-Exposed Comment:Recent close contact documented in the COVID-19 PCR/PRO order 12/04/2020 12/18/2020 12/19/2020 1:25 AM E DT CoV-Risk 01/21/2022 01/21/2022 02/01/2022 1:32 AM EST documented as of this encounter Additional Source Comments The information contained in this document represents components of the legal health record. It is not the complete legal health record.[facility]
--- NOTE | ~2024-12-13 | FL_ITS ---
EXAMINATION: FL GUIDANCE ONLY HISTORY: M47.816 - Spondylosis without myelopathy or radiculopathy, lumbar region COMPARISON: None available. TECHNIQUE: Fluoroscopy time: 0.2 minutes. Cumulative Dose: 3.10 mGy. DAP: 64.54 uGym2 Images: 2. FINDINGS: Fluoroscopic spot films of the lumbar spine in the AP projection demonstrate needles and contrast material in the regions of the bilateral L3-4, L4-5, and L5-S1 facet joints. FL/FL guidance in treatment room IMPRESSION: Fluoroscopy during procedure. Please see procedure report for additional information. Electronically signed by: Asif Garcia MD 12/13/2024 03:17 PM EDT
--- OUTSIDE RECORDS SUMMARY | 2024-12-13 06:25 | XMS_ITS | Encounter Summary ---
Author Organization [facility] Address [address] [place] [address] Phone Care Team Providers Care Body Wirer Name Role Phone Leonel Alegria MD Primary Care Provider [phone] Emile Blake MD Unavailable [phone] Andrei Coon DO Primary Care Provider [phone] Lupis Copeland MD Primary Care Provider [phone] Gordon Moralez MD Primary Care Provider Ja Holley MD Primary Care Provider [phone] Frank Mak MD Unavailable [phone] Alfonzo Perkins MD Unavailable [phone] Rosalia Vargas RN Unavailable [phone] Jamari Ellison DO Unavailable [phone] Fredi Unger MD Unavailable [phone] Elroy Calderon MD Unavailable [phone] Ja Holley MD Unavailable [phone] Bartolo Morgan MD Unavailable [phone] Molly Spring RN Unavailable [email or web address] Criss Cosme Unavailable [phone] Maximino Dorado MD, PhD Unavailable [phone] Maximino Dorado MD, PhD Unavailable [phone] Lincoln Thomson MD Unavailable [phone] Dhaval Slater MD Unavailable Reason for Referral * Physical Therapy (Routine) - Closed Specialty Diagnoses / Procedures Referred By Glory pablo Referred To Contact Physical Therapy Diagnoses Encounter for rehabilitation System, Provider Not In, PhD Partners [address] [address] [facility] 30 [place] [address] Phone: tel: Referral ID Status Reason Start Date Expiration Date Visits Re quested Visits Authorized [id number] Closed 07/14/2017 02/20/2018 99 99 Encounter Details Date Type Department Care Team (Latest Contact Info) Description 07/11/2017 Transcribe Orders [facility] 8 [place] [address] [place] [address] [email or web address] Encounter for rehabilitation (Primary Dx) [...] PM EST Appointment Department of Radiation Oncology [address] [place] [address] Susy Murphy PA-C [address] [place] [address] [place] [address] [email or web address] 02/19/2025 3:00 PM EST Office Visit [facility] [address] [place] [address] Ja Holley MD [address] [facility], [address] [place] [address] 04/30/2025 10:30 AM EDT Office Visit [facility] [address] [place] [address] [place] [address] Fredi Elaine DO [address] [place] [address] 07/22/2025 9:40 AM EDT Office Visit [facility] [address] [place] [address] 3rd Floor, [address] [place] [address] Asif Araiza MD, MS [address] [facility], [address] [place] [address] [email or web address] Scheduled Procedures Name Priority Associated Diagnoses Date/Ti me COLONOSCOPY Gastroesophageal reflux disease with esophagitis without hemorrhage ESOPHAGOGASTRODUODENOSCOPY Gastroesophageal reflux disease with esophagitis without hemorrhage documented as of this encounter Procedures Procedure Name Priority Date/Time Associated Diagnosis Comments AMB REFERRAL TO [facility] PHYSICAL THERAPY Routine 07/14/2017 1:39 PM EDT Encounter for rehabilitation documented in this encounter Results * Ambulatory referral to [facility] Physical Therapy (07/14/2017 1:39 PM EDT) us Provider Not In System PhD AMB [facility] REFERRALS Fin al Result documented in this encounter Visit Diagnoses Diagnosis Encounter for rehabilitation- Primary documented in this encounter Additional Health Concerns Infection Onset Date Last Indicated Resolved Time CoV-Exposed Comment:Recent close contact documented in the COVID-19 PCR/PRO order 12/04/2020 12/18/2020 12/19/2020 1:25 AM E DT CoV-Risk 01/21/2022 01/21/2022 02/01/2022 1:32 AM EST documented as of this encounter Care Teams Body Wirer Relationship Specialty Start Date End Date [place] [address] [email or web address] PCP - General Internal Medicine 05/20/17 01/07/19 Andrei Coon DO [address] [place] [address] [email or web address] PCP - General Family Medicine 01/08/19 01/03/20 Lupis Copeland MD [address] [place] [address] [email or web address] PCP - General Family Medicine 01/04/20 06/09/20 Gordon Moralez MD [address] [place] [address] Saji [email or web address] PCP - General 06/10/20 07/22/20 Ja Holley MD [address] [place] [address], [address] [place] [address] [email or web address] PCP - General Internal Medicine 07/23/20 Emile Blake MD [address] [place] [address] [email or web address] Gastroenterology 10/31/18 Frank Mak MD [address] [place] [address], [address] [place] [address] [email or web address] Physical Medicine and Rehabilitation 11/14/20 [place] [address] [email or web address] Psychiatry 02/01/21 10/07/22 Rosalia Vargas RN 30 [place] [address] [email or web address] Paste Thinner 02/12/21 03/10/21 Jamari Ellison DO [address] [place] [address] Orthopedics & Sports Medicine, [place] [address] [email or web address] Orthopedic Surgery 07/24/21 Fredi Unger MD [address] [place] [address] Ophthalmology 07/24/21 Elroy Calderon MD [address] [place] [address], [address] [place] [address] [email or web address] Urology 10/27/21 Ja Holley MD [address] [place] [address], [address] [place] [address] [email or web address] Insurance Assigned Provider 05/28/23 Bartolo Morgan MD [address] [address] Psychiatry 10/08/22 Molly Spring RN [address] [address] [email or web address] Paste Thinner 02/07/23 10/07/24 Criss Cosme 10 [place] [address] [email or web address] [facility] Community Health Worker 03/29/23 03/29/23 Maximino Dorado MD, PhD [address] [place] [address] [email or web address] Radiation Oncology 05/03/23 Maximino Dorado MD, PhD [address] [place] [address] [email or web address] Radiation Oncology 06/01/23 06/25/23 Lincoln Thomson MD [address] [place] [address], [address] [place] [address] Physical Medicine and Rehabilitation 06/26/23 Dhaval Slater MD [address] [place] [address] [place] [address] Neurosurgery 07/07/23 documented as of this encounter Additional Source Comments The information contained in this document represents components of the legal health record. It is not the complete legal health record.[facility]
--- OUTSIDE RECORDS SUMMARY | 2024-12-13 06:25 | XMS_ITS | Encounter Summary ---
Author Organization [facility] Address [address] [place] [address] Phone Care Team Providers Care Surgical Physician Assistant Name Role Phone Leonel Alegria MD Primary Care Provider [phone] Emile Blake MD Unavailable [phone] Andrei Coon DO Primary Care Provider [phone] Lupis Copeland MD Primary Care Provider [phone] Gordon Moralez MD Primary Care Provider Ja Holley MD Primary Care Provider [phone] Frank Mak MD Unavailable [phone] Alfonzo Perkins MD Unavailable [phone] Rosalia Vargas RN Unavailable [phone] Jamari Ellison DO Unavailable +[phone] Fredi Unger MD Unavailable [phone] Elroy Calderon MD Unavailable [phone] Ja Holley MD Unavailable [phone] Bartolo Morgan MD Unavailable [phone] Molly Spring RN Unavailable [email or web address] Criss Cosme Unavailable Maximino Dorado MD, PhD Unavailable [phone] Maximino Dorado MD, PhD Unavailable [phone] [place] Thomson MD Unavailable OhDhaval MD Unavailable Encounter Details Date Type Department Care Team (Late st Contact Info) Description 03/23/2018 Transcribe Orders Virtual Department 30 [place] [address] Ernestina Chapman MD [address] [place] [address] [email or web address] Dysphagia, unspecified type (Primary Dx) Social History [...] PM EST Appointment Department of Radiation Oncology [address] [place] [address] Susy Murphy PA-C [address] [place], [place] [address]am [place] [address] [email or web address] 02/19/2025 3:00 PM EST Office Visit [facility] [address] [place] [address] [place] [address] Ja Holley MD [address] [place] [address], [address] [place] [address] 04/30/2025 10:30 AM EDT Office Visit [facility] [address] [place] [address] [place] [address] Fredi Elaine, 22 [place] [address] [email or web address] 07/22/2025 9:40 AM EDT Office Visit [facility] [address] Floor, [address] [place] [address] Asif Araiza MD, MS 22 [facility], [address] [place] [address] [email or web address] Scheduled Procedures Name Priority Associated Diagnoses Date/Ti me COLONOSCOPY Gastroesophageal reflux disease with esophagitis without hemorrhage ESOPHAGOGASTRODUODENOSCOPY Gastroesophageal reflux disease with esophagitis without hemorrhage documented as of this encounter Results * [...] transient penetration which promptly cleared. On the glass unloading equipment tender view there are multilevel endplate changes of [...] transient penetration which promptly cleared. On the glass unloading equipment tender view there are multilevel endplate changes of degenerativedisc disease with disc space narrowing, anterior marginal osteophytes.There is an anterior marginal disc calcification at C4-C5. IMPRESSION: 1. No significant swallowing abnormality identified. No aspiration. Pleaserefer to the speech pathologist's full report to follow. FLUOROSCOPY TIME: 1 MIN. 33 SEC; 2823 IMAGES/FRAMES POS [id number] Edited by: Bianka Lockhart on 04/05/2018 12:44 PM Ernetsina Chapman MD IMG [place] EXAMS Tasha l [...] documented as of this encounter Care Teams Surgical Physician Assistant Relationship Specialty Start Date End [place] [address] PCP - General Internal Medicine 05/20/17 01/07/19 Andrei Coon DO [address] [place] [address] [email or web address] PCP - General Family Medicine 01/08/19 01/03/20 Lupis Copeland MD [address] [place] [address] [email or web address] PCP - General Family Medicine 01/04/20 06/09/20 Gordon Moralez MD [address] [place] [address] Saji [email or web address] g PCP - General 06/10/20 07/22/20 Ja Holley MD [address] [place] [address], [address] [place] [address] PCP - General Internal Medicine 07/23/20 Emile Blake MD [address] [place] [address] Gastroenterology 10/31/18 Frank Mak MD [address] [place] [address], [address] [place] [address] [email or web address] Physical Medicine and Rehabilitation 11/14/20 [place] [address] Psychiatry 02/01/21 10/07/22 Rosalia Vargas RN 30 [place] [address] [email or web address] PHCM Emissions Testing Technician 02/12/21 03/10/21 Jamari Ellison DO [address] [place] [address] Orthopedics & Sports Medicine, [facility] [place] [address] Orthopedic Surgery 07/24/21 Fredi Unger MD [address] [place] [address] Ophthalmology 07/24/21 Elroy Calderon MD [address] [place] [address], [address] [place] [address] [email or web address] Urology 10/27/21 Ja Holley MD [address] [place] [address], [address] [place] [address] [email or web address] Insurance Assigned Provider 05/28/23 Bartolo Morgan MD [address] [place] [address] Psychiatry 10/08/22 Molly Spring RN [address] [address] [email or web address] Emissions Testing Technician 02/07/23 10/07/24 Criss Cosme 10 [place] [address] [email or web address] [facility] Community Health Worker 03/29/23 03/29/23 Maximino Dorado MD, PhD [address] [place] [address] [email or web address] Radiation Oncology 05/03/23 Maximino Dorado MD, PhD [address] [place] [address] [email or web address] Radiation Oncology 06/01/23 06/25/23 Lincoln Thomson MD [address] [place] [address], 2nd [place] [address] Physical Medicine and Rehabilitation 06/26/23 Dhaval Slater MD [address] [place] [address] [place] [address] Neurosurgery 07/07/23 documented as of this encounter Additional Source Comments The information contained in this document represents components of the legal health record. It is not the complete legal health record.[facility]
--- OUTSIDE RECORDS SUMMARY | 2024-12-13 06:25 | XMS_ITS | Encounter Summary ---
Author Organization [facility] Address [address] [place] [address] Phone Care Team Providers Care Credit Product Analyst Name Role Phone Leonel Alegria MD Primary Care Provider [phone] Emile Blake MD Unavailable [phone] Andrei Coon DO Primary Care Provider [phone] Lupis Copeland MD Primary Care Provider Gordon Moralez MD Primary Care Provider Ja Holley MD Primary Care Provider [phone] Frank Mak MD Unavailable [phone] Alfonzo Perkins MD Unavailable [phone] Rosalia Vargas RN Unavailable [phone] Jamari Ellison DO Unavailable [phone] Fredi Unger MD Unavailable [phone] Elroy Calderon MD Unavailable [phone] Ja Holley MD Unavailable [phone] Bartolo Morgan MD Unavailable [phone] Molly Spring RN Unavailable [email or web address] Criss Cosme Unavailable [phone] Maximino Dorado MD, PhD Unavailable [phone] Maximino Dorado MD, PhD Unavailable Lincoln Thomson MD Unavailable [phone] OhDhaval MD Unavailable Encounter Details Date Type Department Care Team (Late Contact Info) Description 05/23/2018 Procedure Pass [facility] Endoscopy Admitting Dept Virtual Department [address] [place] [phone] Social History Tobacco Use Types Packs/Day Years [...] Department Care Team (Late Contact Info) Description 12/28/2024 1:00 PM EST Appointment Department of Radiation Oncology [address] [place] [address] Susy Murphy PA-C [address] [place], [place] [address]am [place] [address] [email or web address] 02/19/2025 3:00 PM EST Office Visit See [facility] [address] [address] Ja Holley MD [address] [place] [address], [address] [place] [address] 04/30/2025 10:30 AM EDT Office Visit [facility] [address] [place] [address] Fredi Elaine DO [address] [place] [address] 07/22/2025 9:40 AM EDT Office Visit [facility] [address] [facility] 3rd Floor, [address] [place] [address] Asif Araiza MD, MS [address] [facility], [address] [place] [address] [email or web address] Scheduled Procedures Name Priority Associated Diagnoses Date/Ti me COLONOSCOPY Gastroesophageal reflux disease with esophagitis without hemorrhage ESOPHAGOGASTRODUODENOSCOPY Gastroesophageal reflux disease with esophagitis without hemorrhage documented as of this encounter Visit Diagnoses Not on filedocumented in this encounter Additional Health Concerns Infection Onset Date Last Indicated Resolved Time CoV-Exposed Comment:Recent close contact documented in the COVID-19 PCR/PRO order 12/04/2020 12/18/2020 12/19/2020 1:25 AM E DT CoV-Risk 01/21/2022 01/21/2022 02/01/2022 1:32 AM EST documented as of this encounter Care Teams Credit Product Analyst Relationship Specialty Start Date End Date Le[place] [address] [email or web address] PCP - General Internal Medicine 05/20/17 01/07/19 Andrei Coon DO [address] [place] [address] [email or web address] PCP - General Family Medicine 01/08/19 01/03/20 Lupis Copeland MD [address] [place] [address] [email or web address] PCP - General Family Medicine 01/04/20 06/09/20 Gordon Moralez MD [address] [address] [email or web address] PCP - General 06/10/20 07/22/20 Ja Holley MD [address] [place] [address], [address] [place] [address] PCP - General Internal Medicine 07/23/20 Emile Blake MD [address] [place] [address] Gastroenterology 10/31/18 Frank Mak MD [address] [place] [address], [address] [place] [address] [email or web address] Physical Medicine and Rehabilitation 11/14/20 Al[place] [address] Psychiatry 02/01/21 10/07/22 Rosalia Vargas, KATEY [address] [place] [address] PHC Veterinary Pathologist 02/12/21 03/10/21 Jamari Ellison DO [address] [place] [address] [facility] [place] [place] [address] Orthopedic Surgery 07/24/21 Fredi Unger MD [address] [place] [address] Ophthalmology 07/24/21 Elroy Calderon MD [address] [facility], [address] [place] [address] [email or web address] Urology 10/27/21 Ja Holley MD [address] [place] [address], [address] [place] [address] [email or web address] Insurance Assigned Provider 05/28/23 Bartolo Morgan MD [address] [place] [address] Psychiatry 10/08/22 Molly Spring RN [address] [place] [address] [email or web address] PHCM Veterinary Pathologist 02/07/23 10/07/24 Criss Cosme [address] [place] [address] [email or web address] PHC Community Health Worker 03/29/23 03/29/23 Maximino Dorado MD, PhD [address] [place] [address] [email or web address] Radiation Oncology 05/03/23 Maximino Dorado MD, PhD [address] [place] [address] [email or web address] Radiation Oncology 06/01/23 06/25/23 Lincoln Thomson MD [address] [place] [address], 2nd [place] [address] [email or web address] Physical Medicine and Rehabilitation 06/26/23 Dhaval Slater MD [address] [place] [address] Dr CALIX [address] [place] [address] Neurosurgery 07/07/23 documented as of this encounter Additional Source Comments The information contained in this document represents components of the legal health record. It is not the complete legal health record.[facility]
--- OUTSIDE RECORDS SUMMARY | 2024-12-13 06:25 | XMS_ITS | Encounter Summary ---
Author Organization [facility] Address [address] [place] [address] Phone Care Team Providers Care Bulldozer/Loader/Compactor/Scraper Name Role Phone Emile Blake MD Unavailable [phone] Andrei Coon DO Primary Care Provider Lupis Copeland MD Primary Care Provider Gordon Moralez MD Primary Care Provider [phone] Ja Holley MD Primary Care Provider [phone] Frank Mak MD Unavailable Alfonzo Perkins MD Unavailable Rosalia Vargas RN Unavailable [phone] Jamari Ellison DO Unavailable Fredi Unger MD Unavailable Elroy Calderon MD Unavailable [phone] Ja Holley MD Unavailable Bartolo Morgan MD Unavailable [phone] Molly Spring RN Unavailable [email or web address] Criss Cosme Unavailable [phone] Maximino Dorado MD, PhD Unavailable [phone] Maximino Dorado MD, PhD Unavailable [phone] Lincoln Thomson MD Unavailable Dhaval Slater MD Unavailable Encounter Details Date Type Department Care Team (Late st Contact Info) Description 03/27/2019 Ancillary Orders Virtual Department [address] [place] [address] Arben Crews MD [address] [facility], [address] [place] [address] [email or web address] Voice hoarsenesses; Dysphagia, unspecified type Social History [...] EST Appointment Department of Radiation Oncology [address] [place] [address] Susy Murphy PA-C [address] [place] [address] [place] [address] [email or web address] 02/19/2025 3:00 PM EST Office Visit [facility] [address] [place] [address] Ja Holley MD 22 [facility], [address] [place], [place] [phone] 04/30/2025 10:30 AM EDT Office Visit [facility] [address] [place] [address] [place], [place] [phone] Fredi Elaine DO 22 [place] [address] [email or web address] 07/22/2025 9:40 AM EDT Office Visit [facility] [address] [place] [address] Dr 3rd Floor, [address] [place] [address] Asif Araiza MD, MS 22 [facility], [address] [place] [address] [email or web address] Scheduled Procedures Name Priority Associated Diagnoses Date/Ti [...] documented as of this encounter Care Teams Bulldozer/Loader/Compactor/Scraper Relationship Specialty Start Date End Date Andrei Coon DO [address] [place] [address] [email or web address] PCP - General Family Medicine 01/08/19 01/03/20 Lupis Copeland MD [address] [place] [address] [email or web address] PCP - General Family Medicine 01/04/20 06/09/20 Gordon Moralez MD [address] [address] [email or web address] PCP - General 06/10/20 07/22/20 Ja Holley MD [address] [place] [address], [address] [place] [address] PCP - General Internal Medicine 07/23/20 Emile Blake MD [address] [place] [address] Gastroenterology 10/31/18 Frank Mak MD [address] [place] [address], [address] [place] [address] [email or web address] Physical Medicine and Rehabilitation 11/14/20 [place] [address] Psychiatry 02/01/21 10/07/22 Rosalia Vargas, KATEY [address] [place] [address] PHC Analysis Director 02/12/21 03/10/21 Jamari Ellison DO [address] [place] [address] [facility] [place] [address] Orthopedic Surgery 07/24/21 Fredi Unger MD [address] [place] [address] Ophthalmology 07/24/21 Elroy Calderon MD [address] [place] [address], [address] [address] [email or web address] Urology 10/27/21 Ja Holley MD [address] [place] [address], [address] [place] [address] [email or web address] Insurance Assigned Provider 05/28/23 Bartolo Morgan MD [address] [place] [address] Psychiatry 10/08/22 Molly Spring RN [address] [place] [address] [email or web address] Director 02/07/23 10/07/24 Criss Cosme [address] [place] [address] [email or web address] [facility] Community Health Worker 03/29/23 03/29/23 Maximino Dorado MD, PhD [address] [place] [address] [email or web address] Radiation Oncology 05/03/23 Maximino Dorado MD, PhD [address] [place] [address] [email or web address] Radiation Oncology 06/01/23 06/25/23 Lincoln Thomson MD [address] [place] [address], 2nd [place] [address] [email or web address] Physical Medicine and Rehabilitation 06/26/23 Dhaval Slater MD [address] [place] [address] Neurosurgery 07/07/23 documented as of this encounter Additional Source Comments The information contained in this document represents components of the legal health record. It is not the complete legal health record.[facility]
--- OUTSIDE RECORDS SUMMARY | 2024-12-13 06:25 | XMS_ITS | Encounter Summary ---
Author Organization [facility] Address [address] [place] [address] Phone Care Team Providers Care Writer Editor Name Role Phone Emile Blake MD Unavailable Ja Holley MD Primary Care Provider [phone] Frank Mak MD Unavailable Alfonzo Perkins MD Unavailable Jamari Ellison DO Unavailable [phone] Fredi Unger MD Unavailable Elroy Calderon MD Unavailable [phone] Ja Holley MD Unavailable [phone] Bartolo Morgan MD Unavailable [phone] Molly Spring RN Unavailable [email or web address] Criss Cosme Unavailable [phone] Maximino Dorado MD, PhD Unavailable [phone] Maximino Dorado MD, PhD Unavailable [phone] Lincoln Thomson MD Unavailable [phone] Dhaval Slater MD Unavailable Encounter Details Date Type Department Care Team (Late st Contact Info) Description 03/27/2021 Ancillary Orders [facility] Orthopedics & Sports Medicine [address] [place] [phone] Niya Jaimes MD [address] [place] [address] [facility] [place] [address] [email or web address] Social History Tobacco Use Types Packs/Day Years [...] high school, GED, job training, learning the Tongan language, technical skills, or developing parenting skills)? 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 Not on file Not on file Not on file documented as of this encounter Plan of Treatment Upcoming Encounters Date Type Department Care Team (Late st Contact Info) Description 12/28/2024 1:00 PM EST Appointment Department of Radiation Oncology [address] [place] [address] Susy Murphy PA-C [address] [place] [address] [place] [address] [email or web address] 02/19/2025 3:00 PM EST Office Visit [address] [place] [address] Ja Holley MD [address] [place] [address], [address] [place] [address] 04/30/2025 10:30 AM EDT Office Visit [facility] [address] [place] [address] [place] [address] Fredi Elaine DO [address] [place] [address] 07/22/2025 9:40 AM EDT Office Visit [facility] [address] [place] [address] 3rd Floor, [address] [place] [address] Asif Araiza MD, MS [address] [place] [address], [address] [address] Scheduled Procedures Name Priority Associated Diagnoses Date/Ti mo COLONOSCOPY Gastroesophageal reflux disease with esophagitis without [...] documented as of this encounter Care Teams Writer Editor Relationship Specialty Start Date End Date Ja Holley MD [address] [place] [address], [address] [place] [address] [email or web address] PCP - General Internal Medicine 07/23/20 Emile Blake MD [address] [place] [address] Gastroenterology 10/31/18 Frank Mak MD [address] [place] [address], [address] [place] [address] [email or web address] Physical Medicine and Rehabilitation 11/14/20 [place] [address] Psychiatry 02/01/21 10/07/22 Jamari Ellison DO [address] [place] [address] [facility] [place] [address] Orthopedic Surgery 07/24/21 Fredi Unger MD [address] [place] [address] Ophthalmology 07/24/21 Elroy Calderon MD [facility], [address] [place] [address] [email or web address] Urology 10/27/21 Ja Holley MD [address] [place] [address], [address] [place] [address] [email or web address] Insurance Assigned Provider 05/28/23 Bartolo Morgan MD [address] [place] [address] Psychiatry 10/08/22 Molly Spring RN [address] [place] [address] [email or web address] PHCM Plant Anatomy Teacher 02/07/23 10/07/24 Criss Cosme [address] [place] [address] [email or web address] PHC Community Health Worker 03/29/23 03/29/23 Maximino Dorado MD, PhD [address] [place] [address] [email or web address] Radiation Oncology 05/03/23 Maximino Dorado MD, PhD [address] [place] [address] [email or web address] Radiation Oncology 06/01/23 06/25/23 Lincoln Thomson MD [address] [place] [address], 2nd [place] [address] [email or web address] Physical Medicine and Rehabilitation 06/26/23 Dhaval Slater MD [address] [place] [address] Dr CALIX [address] [place] [address] Neurosurgery 07/07/23 documented as of this encounter Additional Source Comments The information contained in this document represents components of the legal health record. It is not the complete legal health record.[facility]
--- OUTSIDE RECORDS SUMMARY | 2024-12-13 06:25 | XMS_ITS | Encounter Summary ---
Author Organization [facility] Address [address] [place] [address] Phone Care Team Providers Care Digital Camera Technician Name Role Phone Emile Blake MD Unavailable Andrei Coon DO Primary Care Provider Lupis Copeland MD Primary Care Provider Gordon Moralez MD Primary Care Provider [phone] Ja Holley MD Primary Care Provider [phone] Frank Mak MD Unavailable Alfonzo Perkins MD Unavailable Rosalia Vargas RN Unavailable [phone] Jamari Ellison DO Unavailable Fredi Unger MD Unavailable Elroy Calderon MD Unavailable [phone] Ja Holley MD Unavailable Bartolo Morgan MD Unavailable [phone] Molly Spring RN Unavailable [email or web address] Criss Cosme Unavailable [phone] Maximino Dorado MD, PhD Unavailable [phone] Maximino Dorado MD, PhD Unavailable [phone] Lincoln Thomson MD Unavailable Dhaval Slater MD Unavailable Encounter Details Date Type Department Care Team (Latest Contact Info) Description 01/28/2019 Transcribe Orders [facility] [address] [place] [address] Compa Monsalve MD [address] [facility] [address] [place] [address] Chronic fatigue syndrome (Primary Dx); Retention of urine, unspecified; Prostate enlargement Social History Tobacco Use Types Packs/Day Years [...] EST Appointment Department of Radiation Oncology [address] [place] [address] Susy Murphy PA-C [address] [place] [address] [place] [address] [email or web address] 02/19/2025 3:00 PM EST Office Visit [facility] Medicine [address] [place] [address] [place] [address] Ja Holley MD [address] [facility], [address] [place] [address] 04/30/2025 10:30 AM EDT Office Visit [facility] [address] [place] [address] [place] [address] Fredi Elaine DO 22 [place] [address] 07/22/2025 9:40 AM EDT Office Visit [facility] [address] [place] [address] 3rd Floor, [address] [place] [address] Asif Araiza MD, MS [address] [facility], [address] [place] [address] [email or web address] Scheduled Procedures Name Priority Associated Diagnoses Date/Ti va COLONOSCOPY Gastroesophageal reflux disease with esophagitis without hemorrhage ESOPHAGOGASTRODUODENOSCOPY Gastroesophageal reflux disease with esophagitis without hemorrhage documented as of this encounter Results * (ABNORMAL) Hemoglobin A1c (01/28/2019 10:36 AM EST) HEMOGLOBIN A1C 6.3(H) 4.3 - 5.8 % [facility] Blood 01/28/2019 10:3 6 AM EST 01/28/2019 10:44 AM EST Compa Monsalve MD LAB BLOOD ORDERABLES Final Result Performing Organization Address City/[facility]/ZIP Co de Phone Number [address] [address] * Cortisol AM (01/28/2019 10:36 AM EST) CORTISOL AM 8.1 6.2 - 19.4 ug/dL [facility] Blood 01/28/2019 10:3 6 AM EST 01/28/2019 10:44 AM EST Compa Monsalve MD LAB BLOOD ORDERABLES Final Result Performing Organization Address City/[facility]/ZIP Co de Phone Number [address] [address] * PSA (screening) (01/28/2019 10:36 AM EST) PSA 2.77 0 - 4.00 ng/mL [facility] Blood 01/28/2019 10:3 6 AM EST 01/28/2019 10:43 AM EST us Compa Monsalve MD LAB BLOOD ORDERABLES Final Result Performing Organization Address City/[facility]/ZIP Co de Phone Number [address] [address] * (ABNORMAL) 25-OH vitamin D (01/28/2019 10:36 AM EST) 25 OH VIT D (TOTAL) 28(L) 30 - 60 ng/mL [facility] Blood 01/28/2019 10:3 6 AM EST 01/28/2019 10:44 AM EST us Compa Monsalve MD LAB BLOOD ORDERABLES Final Result Performing Organization Address [facility] de Phone Number [address] [address] * Testosterone, total and free (01/28/2019 10:36 AM EST) FREE TESTOSTERONE 11.2 3.47 - 13.0 ng/dL [facility] Comment: (NOTE) ADDITIONAL INFORMATION Testing performed by [facility]. This test was developed and its performance characteristics determined by [facility] in a manner consistent with CLIA requirements. This test has not been cleared or approved by the U.S. Food and Drug Administration. TESTOSTERONE, TOTAL 511 240 - 950 ng/dL [facility] Comment: (NOTE) ADDITIONAL INFORMATION Testing performed by Liquid Chromatography-Tandem Mass Spectrometry (LC-MS/MS). This test was developed and its performance characteristics determined by [facility] in a manner consistent with CLIA requirements. This test has not been cleared or approved by the U.S. Food and Drug Administration. Blood 01/28/2019 10:3 6 AM EST 01/28/2019 10:45 AM EST us Compa Monsalve MD LAB BLOOD ORDERABLES Final Result [facility] [address] [place] [address] * TSH with reflex (01/28/2019 10:36 AM EST) TSH 1.20 0.27 - 4.20 uIU/mL [facility] Blood 01/28/2019 10:3 6 AM EST 01/28/2019 10:44 AM EST Compa Monsalve MD LAB BLOOD ORDERABLES Final Result Performing Organization Address City/[facility] Co de Phone Number [facility] [address] [place] [address] documented in this encounter Visit Diagnoses Diagnosis Chronic fatigue syndrome- Primary Retention of urine, unspecified Prostate enlargement Hypertrophy of prostate without urinary obstruction and other lower urinary tract symptoms (LUTS) documented in this encounter Additional Health Concerns Infection Onset Date Last Indicated Resolved Time CoV-Exposed Comment:Recent close contact documented in the COVID-19 PCR/PRO order 12/04/2020 12/18/2020 12/19/2020 1:25 AM E DT CoV-Risk 01/21/2022 01/21/2022 02/01/2022 1:32 AM EST documented as of this encounter Care Teams Digital Camera Technician Relationship Specialty Start Date End Date Andrei Coon DO [address] [place] [address] [email or web address] PCP - General Family Medicine 01/08/19 01/03/20 Lupis Copeland MD [address] [place] [address] [email or web address] PCP - General Family Medicine 01/04/20 06/09/20 Gordon Moralez MD [address] [facility] [address] [place], [place] [id number] Saji [email or web address] PCP - General 06/10/20 07/22/20 Ja Holley MD [address] [place] [address], [address] [place] [address] PCP - General Internal Medicine 07/23/20 Emile Blake MD [address] [place] [address] Gastroenterology 10/31/18 Frank Mak MD [address] [place] [address], [address] [place] [address] [email or web address] Physical Medicine and Rehabilitation 11/14/20 [place] [address] Psychiatry 02/01/21 10/07/22 Rosalia Vargas, KATEY [address] [place] [address] [facility] Cookie Breaker 02/12/21 03/10/21 Jamari Ellison DO [address] [place] [address] [facility] [place] [address] Orthopedic Surgery 07/24/21 Fredi Unger MD [address] [place] [address] 2 [place] [address] Ophthalmology 07/24/21 Elroy Calderon MD [address] [place] [address], [address] [place] [address] [email or web address] Urology 10/27/21 Ja Holley MD [address] [place] [address], [address] [place] [address] [email or web address] Insurance Assigned Provider 05/28/23 Bartolo Morgan MD [address] [place] [address] Psychiatry 10/08/22 Molly Spring, KATEY [address] [address] [email or web address] Cookie Breaker 02/07/23 10/07/24 Criss Cosme [address] [place] [address] [email or web address] PHC Community Health Worker 03/29/23 03/29/23 Maximino Dorado MD, PhD [address] [place] [address] [email or web address] Radiation Oncology 05/03/23 Maximino Dorado MD, PhD [address] [place] [address] [email or web address] Radiation Oncology 06/01/23 06/25/23 Lincoln Thomson MD [address] [place] [address], 2nd [place] [address] [email or web address] Physical Medicine and Rehabilitation 06/26/23 Dhaval Slater MD [address] [place] [address] [place] [address] Neurosurgery 07/07/23 documented as of this encounter Additional Source Comments The information contained in this document represents components of the legal health record. It is not the complete legal health record.[facility]
--- OUTSIDE RECORDS SUMMARY | 2024-12-13 06:25 | XMS_ITS | Encounter Summary ---
Author Organization [facility] Address [address] [place] [address] Phone Care Team Providers Care Store Specialist Name Role Phone Emile Blake MD Unavailable [phone] Andrei Coon DO Primary Care Provider Lupis Copeland MD Primary Care Provider Gordon Moralez MD Primary Care Provider [phone] Ja Holley MD Primary Care Provider [phone] Frank Mak MD Unavailable Alfonzo Perkins MD Unavailable Rosalia Vargas RN Unavailable [phone] Jamari Ellison DO Unavailable Fredi Unger MD Unavailable Elroy Calderon MD Unavailable [phone] Ja Holley MD Unavailable Bartolo Morgan MD Unavailable [phone] Molly Spring RN Unavailable [email or web address] Criss Cosme Unavailable [phone] Maximino Dorado MD, PhD Unavailable [phone] Maximino Dorado MD, PhD Unavailable [phone] Lincoln Thomson MD Unavailable Dhaval Slater MD Unavailable Encounter Details Date Type Department Care Team (Late st Contact Info) Description 03/13/2019 Procedure Pass [facility], [facility] - [address] [address] Social History Tobacco Use Types Packs/Day Years [...] EST Appointment Department of Radiation Oncology [address] [place] [address] Susy Murphy PA-C [address] [place] [address] [place] [address] [email or web address] 02/19/2025 3:00 PM EST Office Visit [address] [place] [address] Ja Holley MD [address] [facility] [place] [address] 04/30/2025 10:30 AM EDT Office Visit [facility] [address] [place] [address] Fredi Elaine DO 22 [place] [address] [email or web address] 07/22/2025 9:40 AM EDT Office Visit [facility] [address] [facility] 3rd Floor, [address] [place] [address] Asif Araiza MD, MS [address] [facility], [address] [place] [address] [email or web address] Scheduled Procedures Name Priority Associated Diagnoses Date/Ti [...] documented as of this encounter Care Teams Store Specialist Relationship Specialty Start Date End Date Andrei Coon DO [address] [place] [address] [email or web address] PCP - General Family Medicine 01/08/19 01/03/20 Lupis Copeland MD [address] [place] [address] [email or web address] PCP - General Family Medicine 01/04/20 06/09/20 Gordon Moralez MD [address] [address] Saji [email or web address] PCP - General 06/10/20 07/22/20 Ja Holley MD [address] [place] [address], [address] [place] [address] PCP - General Internal Medicine 07/23/20 Emile Blake MD [address] [place] [address] Gastroenterology 10/31/18 Frank Mak MD [address] [place] [address], [address] [place] [address] [email or web address] Physical Medicine and Rehabilitation 11/14/20 [place] [address] Psychiatry 02/01/21 10/07/22 Rosalia Vargas, KATEY 30 [place] [address] PHC Staff Air Defense Officer 02/12/21 03/10/21 Jamari Ellison DO [address] [place] [address] [facility] [place] [address] Orthopedic Surgery 07/24/21 Fredi Unger MD [address] [place] [address] Ophthalmology 07/24/21 Elroy Calderon MD Replaced by [facility], [address] [place] [address] [email or web address] Urology 10/27/21 Ja Holley MD [address] [place] [address], [address] [place] [address] [email or web address] Insurance Assigned Provider 05/28/23 Bartolo Morgan MD [address] [place] [address] Psychiatry 10/08/22 Molly Spring RN [address] [place] [address] [email or web address] PHC Staff Air Defense Officer 02/07/23 10/07/24 Criss Cosme 10 [place] [address] [email or web address] PHC Community Health Worker 03/29/23 03/29/23 Maximino Dorado MD, PhD [address] [place] [address] [email or web address] Radiation Oncology 05/03/23 Maximino Dorado MD, PhD [address] [place] [address] [email or web address] Radiation Oncology 06/01/23 06/25/23 Lincoln Thomson MD [address] [place] [address], 2nd [place] [address] [email or web address] Physical Medicine and Rehabilitation 06/26/23 Dhaval Slater MD [address] [place] [address] [place] [address] Neurosurgery 07/07/23 documented as of this encounter Additional Source Comments The information contained in this document represents components of the legal health record. It is not the complete legal health record.[facility]
--- OUTSIDE RECORDS SUMMARY | 2024-12-13 06:25 | XMS_ITS | Encounter Summary ---
Author Organization [facility] Address [address] [place] [address] Phone Care Team Providers Care Apartment Coordinator Name Role Phone Emile Blake MD Unavailable Ja Holley MD Primary Care Provider [phone] Frank Mak MD Unavailable Alfonzo Perkins MD Unavailable Jamari Ellison DO Unavailable Fredi Unger MD Unavailable Elroy Calderon MD Unavailable [phone] Ja Holley MD Unavailable [phone] Bartolo Morgan MD Unavailable [phone] Molly Spring RN Unavailable [email or web address] Criss Cosme Unavailable [phone] Maximino Dorado MD, PhD Unavailable [phone] Maximino Dorado MD, PhD Unavailable [phone] Lincoln Thomson MD Unavailable [phone] Dhaval Slater MD Unavailable Encounter Details Date Type Department Care Team (Late st Contact Info) Description 03/27/2021 Ancillary Orders [address] [phone] Niya Jaimes MD [address] [place] [address] [facility] [place] [address] [email or web address] Bilateral shoulder pain, unspecified chronicity [...] high school, GED, job training, learning the [place] language, technical skills, or developing parenting skills)? 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 Not on file Not on file Not on file documented as of this encounter Plan of Treatment Upcoming Encounters Date Type Department Care Team (Late st Contact Info) Description 12/28/2024 1:00 PM EST Appointment Department of Radiation Oncology [address] [place] [address] Susy Murphy PA-C [address] [place], [place] [address]am [place] [address] [email or web address] 02/19/2025 3:00 PM EST Office Visit [address] [place] [address] Ja Holley MD [address] [place] [address], [address] [place] [address] 04/30/2025 10:30 AM EDT Office Visit [facility] [address] [place] [address] [place] [address] Fredi Elaine DO [address] [place] [address] 07/22/2025 9:40 AM EDT Office Visit [facility] [address] [place] [address] 3rd Floor, [address] [place] [address] Asif Arazia MD, MS [address] [place] [address], [address] [address] Pending Results Name Type Priority Associated Diagnoses Date /Time FL Guidance Needle Placement Non-Spine Imaging Routine Bilateral shoulder pain, unspecified chronicity 03/31/2021 9:23 AM EST Scheduled Orders Name Type Priority Associated Diagnoses Orde r Schedule FL Guidance Needle Placement Non-Spine Imaging Routine Bilateral shoulder pain, unspecified chronicity 1 Occurrences starting 03/27/2021 until 06/24/2021 Scheduled Procedures Name Priority Associated Diagnoses Date/Ti [...] documented as of this encounter Care Teams Apartment Coordinator Relationship Specialty Start Date End Date Ja Holley MD [address] [place] [address], [address] [place] [address] PCP - General Internal Medicine 07/23/20 Emile Blake MD [address] [place] [address] Gastroenterology 10/31/18 Frank Mak MD [address] [place] [address], [address] [place] [address] [email or web address] Physical Medicine and Rehabilitation 11/14/20 [place] [address] Psychiatry 02/01/21 10/07/22 Jamari Ellison DO [address] [place] [address] [facility], [place] [address] [email or web address] Orthopedic Surgery 07/24/21 Fredi Unger MD [address] [place] [address] 2 [place] [address] Ophthalmology 07/24/21 Elroy Calderon MD [address] [place] [address], [address] [place] [address] [email or web address] Urology 10/27/21 Ja Holley MD [address] [place] [address], [address] [place] [address] [email or web address] Insurance Assigned Provider 05/28/23 Bartolo Morgan MD [address] [place] [address] Psychiatry 10/08/22 Molly Spring, KATEY [address] [place] [address] [email or web address] Business Management Consultant 02/07/23 10/07/24 Criss Cosme 10 [place] [address] [email or web address] [facility] Community Health Worker 03/29/23 03/29/23 Maximino Dorado MD, PhD [address] [place] [address] [email or web address] Radiation Oncology 05/03/23 Maximino Dorado MD, PhD [address] [place] [address] [email or web address] Radiation Oncology 06/01/23 06/25/23 Lincoln Thomson MD [address] [place] [address], 2nd [place] [address] [email or web address] Physical Medicine and Rehabilitation 06/26/23 Dhaval Slater MD [address] [place] [address] [place] [address] Neurosurgery 07/07/23 documented as of this encounter Additional Source Comments The information contained in this document represents components of the legal health record. It is not the complete legal health record.[facility]
--- OUTSIDE RECORDS SUMMARY | 2024-12-13 06:25 | XMS_ITS | Encounter Summary ---
Author Organization [facility] Address [address] [place] [address] Phone Care Team Providers Care Special Education Inclusion Teacher Name Role Phone Emile Blake MD Unavailable [phone] Andrei Coon DO Primary Care Provider Lupis Copeland MD Primary Care Provider Gordon Moralez MD Primary Care Provider [phone] Ja Holley MD Primary Care Provider [phone] Frank Mak MD Unavailable Alfonzo Perkins MD Unavailable Rosalia Vargas RN Unavailable [phone] Jamari Ellison DO Unavailable Fredi Unger MD Unavailable Elroy Calderon MD Unavailable [phone] Ja Holley MD Unavailable Bartolo Morgan MD Unavailable [phone] Molly Spring RN Unavailable [email or web address] Criss Cosme Unavailable [phone] Maximino Dorado MD, PhD Unavailable [phone] Maximino Dorado MD, PhD Unavailable + [...] Neck Arben Crews MD Phone: tel: fax: mailto:[email or web address] Referral ID Status Reason Start Date Expiration Date Visits Re quested Visits Authorized [id number] Closed 03/27/2019 03/26/2020 1 1 Encounter Details Date Type Department Care Team (Late Contact Info) Description 03/27/2019 Ancillary Orders Virtual Department [address] [place] [address] Arben Crews MD [address] [place] [address], [address] [place] [address] [email or web address] Voice hoarsenesses; Dysphagia, unspecified type; GERD without [...] EST Appointment Department of Radiation Oncology [address] [place] [address] Susy Murphy PA-C [address] [place], [place] [address]am [place] [address] [email or web address] 02/19/2025 3:00 PM EST Office Visit [address] [place] [address] Ja Holley MD [address] [place] [address], [address] [place] [address] 04/30/2025 10:30 AM EDT Office Visit [facility] [address] [place] [address] [place] [address] Fredi Elaine DO [address] [place] [address] 07/22/2025 9:40 AM EDT Office Visit [facility] [address] [place] [address] 3rd Floor, [address] [place] [address] Asif Araiza MD, [place] [address] [place] [address], [address] [place] [address] [email or web address] Scheduled Procedures Name Priority Associated Diagnoses Date/Ti hi COLONOSCOPY Gastroesophageal reflux disease with esophagitis without [...] TOTAL CTDIvol: 10.50 mGy POS - [id number] us Arben Crews MD IMG CT XSPECIALTY ORDERA [...] documented as of this encounter Care Teams Special Education Inclusion Teacher Relationship Specialty Start Date End Date Andrei Coon DO [address] [place] [address] [email or web address] PCP - General Family Medicine 01/08/19 01/03/20 Lupis Copeland MD [address] [place] [address] [email or web address] PCP - General Family Medicine 01/04/20 06/09/20 Gordon Moralez MD [address] [address] [email or web address] PCP - General 06/10/20 07/22/20 Ja Holley MD [address] [place] [address], [address] [place] [address] PCP - General Internal Medicine 07/23/20 Emile Blake MD [address] [place] [address] Gastroenterology 10/31/18 Frank Mak MD [address] [place] [address], [address] [place] [address] [email or web address] Physical Medicine and Rehabilitation 11/14/20 [place] [address] Psychiatry 02/01/21 10/07/22 Rosalia Vagras, RN 30 [place] [address] PHC Flap Presser 02/12/21 03/10/21 Jamari Ellison DO [address] [place] [address] [facility] [place] [address] Orthopedic Surgery 07/24/21 Fredi Unger MD [address] [place] [address] Ophthalmology 07/24/21 Elroy Calderon MD [address] [place] [address] [address] [place] [address] [email or web address] Urology 10/27/21 Ja Holley MD [address] [place] [address], [address] [place] [address] [email or web address] Insurance Assigned Provider 05/28/23 Bartool Morgan MD [address] [place] [address] Psychiatry 10/08/22 Molly Spring RN [address] [place] [address] [email or web address] PHCM Flap Presser 02/07/23 10/07/24 Criss Cosme 10 [place] [address] [email or web address] PHC Community Health Worker 03/29/23 03/29/23 Maximino Dorado MD, PhD [address] [place] [address] [email or web address] Radiation Oncology 05/03/23 Maximino Dorado MD, PhD [address] [place] [address] [email or web address] Radiation Oncology 06/01/23 06/25/23 Licnoln Thomson MD [address] [place] [address], 2nd [place] [address] [email or web address] Physical Medicine and Rehabilitation 06/26/23 Dhaval Slater MD [address] [place] [address] Dr CALIX [address] [place] [address] Neurosurgery 07/07/23 documented as of this encounter Additional Source Comments The information contained in this document represents components of the legal health record. It is not the complete legal health record.[facility]
--- OUTSIDE RECORDS SUMMARY | 2024-12-13 06:25 | XMS_ITS | Encounter Summary ---
Author Organization [facility] Address [address] [place] [address] Phone Care Team Providers Care Web Development Director Name Role Phone Leonel Alegria MD Primary Care Provider [phone] Emile Blake MD Unavailable [phone] Andrei Coon DO Primary Care Provider [phone] Lupis Copeland MD Primary Care Provider Gordon Moralez MD Primary Care Provider Ja Holley MD Primary Care Provider [phone] Frank Mak MD Unavailable [phone] Alfonzo Perkins MD Unavailable [phone] Rosalia Vargas RN Unavailable Jamari Ellison DO Unavailable [phone] Fredi Unger MD Unavailable [phone] Elroy Calderon MD Unavailable [phone] Ja Holley MD Unavailable [phone] Bartolo Morgan MD Unavailable [phone] Molly Spring RN Unavailable [email or web address] Criss Cosme Unavailable [phone] Maximino Dorado MD, PhD Unavailable [phone] Maximino Dorado MD, PhD Unavailable [phone] Lincoln Thomson MD Unavailable [phone] Dhaval Slater MD Unavailable Reason for Referral * Physical Therapy (Routine) - Closed Specialty Diagnoses / Procedures Referred By Glory pablo Referred To Contact Physical Therapy Diagnoses Encounter for rehabilitation System, Provider Not In, PhD Partners [address] [address] [facility] 30 [place] [address] Phone: tel: Referral ID Status Reason Start Date Expiration Date Visits Re quested Visits Authorized [id number] Closed 11/07/2017 02/20/2018 99 99 Encounter Details Date Type Department Care Team (Latest Contact Info) Description 11/07/2017 Transcribe Orders [facility] [address] [place] [address] [place] [address] [email or web address] Encounter for rehabilitation (Primary Dx) [...] EST Appointment Department of Radiation Oncology [address] [place] [address] Susy Murphy PA-C [address] [place] [address] [place] [address] [email or web address] 02/19/2025 3:00 PM EST Office Visit [facility] [place] [facility] [address] [place] [address] [place] [address] Ja Holley MD [address] [facility] [place], [address] [place] [address] 04/30/2025 10:30 AM EDT Office Visit [facility] [address] [place] [address] [place] [address] Fredi Elaine DO [address] [place] [address] 07/22/2025 9:40 AM EDT Office Visit [facility] [address] [place] [address] 3rd Floor, [address] [place] [address] Asif Araiza MD, MS [address] [facility] [place], [address] [place] [address] [email or web address] Scheduled Procedures Name Priority Associated Diagnoses Date/Ti me COLONOSCOPY Gastroesophageal reflux disease with esophagitis without hemorrhage ESOPHAGOGASTRODUODENOSCOPY Gastroesophageal reflux disease with esophagitis without hemorrhage Scheduled Referrals Name Type Priority Associated Diagnoses Orde r Schedule [facility] Outpatient Referral Routine Encounter for [...] documented as of this encounter Care Teams Web Development Director Relationship Specialty Start Date End Date [place] [address] [email or web address] PCP - General Internal Medicine 05/20/17 01/07/19 Andrei Coon DO [address] [place] [address] [email or web address] PCP - General Family Medicine 01/08/19 01/03/20 Lupis Copeland MD [address] [place] [address] [email or web address] PCP - General Family Medicine 01/04/20 06/09/20 Gordon Moralez MD [address] [place] [address] Saji [email or web address] g PCP - General 06/10/20 07/22/20 Ja Holley MD [address] [place] [address], [address] [place] [address] [email or web address] PCP - General Internal Medicine 07/23/20 Emile Blake MD [address] [place] [address] [email or web address] Gastroenterology 10/31/18 Frank Mak MD [address] [place] [address], [address] [place] [address] [email or web address] Physical Medicine and Rehabilitation 11/14/20 [place] [address] Psychiatry 02/01/21 10/07/22 Rosalia Vargas RN 30 [place] [address] [email or web address] PHCM Geriatric Personal Care Aide 02/12/21 03/10/21 Jamari Ellison DO [address] [place] [address] [facility] [place] [address] Orthopedic Surgery 07/24/21 Fredi Unger MD [address] [place] [address] Ophthalmology 07/24/21 Elroy Calderon MD [address] [place] [address], [address] [place] [address] [email or web address] Urology 10/27/21 Ja Holley MD [address] [place] [address] [address] [place] [address] [email or web address] Insurance Assigned Provider 05/28/23 Bartolo Morgan MD [address] [place] [address] Psychiatry 10/08/22 Molly Spring RN [address] [place] [address] [email or web address] PHC Geriatric Personal Care Aide 02/07/23 10/07/24 Criss Cosme 10 [place] [address] [email or web address] PHC Community Health Worker 03/29/23 03/29/23 Maximino Dorado MD, PhD [address] [place] [address] [email or web address] Radiation Oncology 05/03/23 Maximino Dorado MD, PhD [address] [place] [address] [email or web address] Radiation Oncology 06/01/23 06/25/23 Lincoln Thomson MD [address] [place] [address], 2nd [place] [address] [email or web address] Physical Medicine and Rehabilitation 06/26/23 Dhaval Slater MD [address] [place] [address] [place] [address] Neurosurgery 07/07/23 documented as of this encounter Additional Source Comments The information contained in this document represents components of the legal health record. It is not the complete legal health record.[facility]
--- OUTSIDE RECORDS SUMMARY | 2024-12-13 06:26 | XMS_ITS | Encounter Summary ---
Author Organization [facility] Address [address] [place] [address] [place] [address] Phone Care Team Providers Care Sr. Vendor Management Associate Name Role Phone Emile Blake MD Unavailable [phone] Ja Holley MD Primary Care Provider + [phone] Frank Mak MD Unavailable [phone] Jamari Ellison DO Unavailable [phone] Fredi Unger MD Unavailable [phone] Elroy Calderon MD Unavailable [phone] Ja Holley MD Unavailable [phone] Bartolo Morgan MD Unavailable [phone] Molly Spring RN Unavailable [email or web address] Criss Cosme Unavailable [phone] Maximino Dorado MD, PhD Unavailable [phone] Maximino Dorado MD, PhD Unavailable [phone] Lincoln Thomson MD Unavailable [phone] Dhaval Slater MD Unavailable Encounter Details Date Type Department Care Team (Late st Contact Info) Description 12/23/2022 Transcribe Orders [facility] Specimen Processing 30 [place], [place] [id number] Ja Holley MD [address] [facility], [address] [place], [place] [phone] [email or web address] Social History Tobacco Use Types Packs/Day Years [...] EST Appointment Department of Radiation Oncology [address] [place] [address] Susy Murphy PA-C [address] [place] [address] [place] [address] [email or web address] 02/19/2025 3:00 PM EST Office Visit [address] [place] [address] Ja Holley MD [address] [place] [address], [address] [place] [address] 04/30/2025 10:30 AM EDT Office Visit [facility] [address] [place] [address] [place] [address] Fredi Elaine DO [address] [place] [address] 07/22/2025 9:40 AM EDT Office Visit [facility] [address] [place] [address] 3rd Floor, [address] [place] [address] Asif Araiza MD, MS [address] [place] [address], [address] [address] Scheduled Procedures Name Priority Associated Diagnoses Date/Ti in COLONOSCOPY Gastroesophageal reflux disease with esophagitis without hemorrhage ESOPHAGOGASTRODUODENOSCOPY Gastroesophageal reflux disease with esophagitis without hemorrhage documented as of this encounter Visit Diagnoses Not on filedocumented in this encounter Additional Health Concerns Assessment Noted Time PHQ-9 Depression Total Score: 12 023 11:21 AM EDT PHQ-2 Depression Total Score: 3 07/14/19 23 11:21 AM EDT documented as of this encounter Care Teams Sr. Vendor Management Associate Relationship Specialty Start Date End Date Ja Holley MD [address] [place] [address], [address] [place] [address] PCP - General Internal Medicine 07/23/20 Emile Blake MD [address] [place] [address] Gastroenterology 10/31/18 Frank Mak MD [address] [place] [address], [address] [place] [address] [email or web address] Physical Medicine and Rehabilitation 11/14/20 Jamari Ellison DO [address] [place] [address] [facility], [place] [address] Orthopedic Surgery 07/24/21 Fredi Unger MD [address] [place] [address] Ophthalmology 07/24/21 Elroy Calderon MD [address] [place] [address], [address] [address] Urology 10/27/21 Ja Holley MD [address] [place] [address], [address] [place] [address] [email or web address] Insurance Assigned Provider 05/28/23 Bartolo Morgan MD [address] [place] [address] Psychiatry 10/08/22 Molly Spring RN [address] [place] [address] [email or web address] Wafer Fabricator 02/07/23 10/07/24 Criss Cosme [address] [place] [address] [email or web address] Community Health Worker 03/29/23 03/29/23 Maximino Dorado MD, PhD [address] [place] [address] [email or web address] Radiation Oncology 05/03/23 Maximino Dorado MD, PhD [address] [place] [address] [email or web address] Radiation Oncology 06/01/23 06/25/23 Lincoln Thomson MD [address] [place] [address], [address] [place] [address] Physical Medicine and Rehabilitation 06/26/23 Dhaval Slater MD [address] [place] [address] Dr CALIX [address] [place] [address] Neurosurgery 07/07/23 documented as of this encounter Additional Source Comments The information contained in this document represents components of the legal health record. It is not the complete legal health record.[facility]
--- OUTSIDE RECORDS SUMMARY | 2024-12-13 06:26 | XMS_ITS | Encounter Summary ---
Author Organization [facility] Address [address] [place] [address] Phone Care Team Providers Care Mobile Ui Developer Name Role Phone Emile Blake MD Unavailable [phone] Lupis Copeland MD Primary Care Provider Gordon Moralez MD Primary Care Provider [phone] Ja Holley MD Primary Care Provider [phone] Frank Mka MD Unavailable [phone] Alfonzo Perkins MD Unavailable Rosalia Vargas RN Unavailable [phone] Jamari Ellison DO Unavailable [phone] Fredi Unger MD Unavailable Elroy Calderon MD Unavailable [phone] Ja Holley MD Unavailable [phone] Bartolo Morgan MD Unavailable [phone] Molly Spring RN Unavailable [email or web address] Criss Cosme Unavailable [phone] Maximino Dorado MD, PhD Unavailable [phone] Maximino Dorado MD, PhD Unavailable [phone] Lincoln Thomson MD Unavailable [phone] Dhaval Slater MD Unavailable Encounter Details Date Type Department Care Team (Late st Contact Info) Description 05/27/2020 Ancillary Orders Virtual Department 30 [place] [address] Ewa Reza PA [address] [address] Acquired cyst of kidney Social History Tobacco [...] PM EST Appointment Department of Radiation Oncology [address] [place] [address] Susy Murphy PA-C [address] [place] [address] [place] [address] [email or web address] 02/19/2025 3:00 PM EST Office Visit [facility] [address] [place] [address] Ja Holley MD [address] [facility], [address] [place] [address] 04/30/2025 10:30 AM EDT Office Visit [facility] [address] [place] [address] [place] [address] Fredi Elaine DO [address] [place] [address] 07/22/2025 9:40 AM EDT Office Visit [facility] [address] [facility] 3rd Floor, [address] [place] [address] Asif Araiza MD, MS [address] [facility], [address] [place] [address] [email or web address] Scheduled Procedures Name Priority Associated Diagnoses Date/Ti ca COLONOSCOPY Gastroesophageal reflux disease with esophagitis without [...] cysts asabove. No acute findings. Ewa SALES [facility] Final Result documented in this [...] documented as of this encounter Care Teams Mobile Ui Developer Relationship Specialty Start Date End Date Lupis Copeland MD [address] [place] [address] [email or web address] PCP - General Family Medicine 01/04/20 06/09/20 Gordon Moralez MD [address] [address] Saji [email or web address] PCP - General 06/10/20 07/22/20 Ja Holley MD [address] [place] [address], [address] [place] [address] PCP - General Internal Medicine 07/23/20 Emile Blake MD [address] [place] [address] Gastroenterology 10/31/18 Frank Mak MD [address] [place] [address], [address] [place] [address] [email or web address] Physical Medicine and Rehabilitation 11/14/20 [place] [address] Psychiatry 02/01/21 10/07/22 Rosalia Vargas, KATEY 30 [place] [address] [email or web address] Quality Technician 02/12/21 03/10/21 Jamari Ellison DO [address] [place] [address] Orthopedics & Sports Medicine, [place] [address] Orthopedic Surgery 07/24/21 Fredi Unger MD [address] [place] [address] Ophthalmology 07/24/21 Elroy Calderon MD [address] [place] [address], [address] [address] Urology 10/27/21 Ja Holley MD [address] [place] [address], [address] [place] [address] [email or web address] Insurance Assigned Provider 05/28/23 Bartolo Morgan MD [address] [place] [address] Psychiatry 10/08/22 Molly Spring RN [address] [place] [address] [email or web address] PHC Quality Technician 02/07/23 10/07/24 Criss Cosme [address] [place] [address] [email or web address] PHC Community Health Worker 03/29/23 03/29/23 Maximino Dorado MD, PhD [address] [place] [address] [email or web address] Radiation Oncology 05/03/23 Maximino Dorado MD, PhD [address] [place] [address] [email or web address] Radiation Oncology 06/01/23 06/25/23 Lincoln Thomson MD [address] [place] [address], 2nd [place] [address] [email or web address] Physical Medicine and Rehabilitation 06/26/23 Dhaval Slater MD [address] [place] [address] Dr CALIX [address] [place] [address] Neurosurgery 07/07/23 documented as of this encounter Additional Source Comments The information contained in this document represents components of the legal health record. It is not the complete legal health record.[facility]
--- OUTSIDE RECORDS SUMMARY | 2024-12-13 06:26 | XMS_ITS | Encounter Summary ---
Author Organization [facility] Address [address] [place] [address] Phone Care Team Providers Care Marketing Rep Name Role Phone Emile Blake MD Unavailable Andrei Coon DO Primary Care Provider Lupis Copeland MD Primary Care Provider Gordon Moralez MD Primary Care Provider [phone] Ja Holley MD Primary Care Provider [phone] Frank Mak MD Unavailable Alfonzo Perkins MD Unavailable Rosalia Vargas RN Unavailable [phone] Jamari Ellison DO Unavailable Fredi Unger MD Unavailable Elroy Calderon MD Unavailable [phone] Ja Holley MD Unavailable Bartolo Morgan MD Unavailable [phone] Molly Spring RN Unavailable [email or web address] Criss Cosme Unavailable [phone] Maximino Dorado MD, PhD Unavailable [phone] Maximino Dorado MD, PhD Unavailable + [...] Expiration Date Visits Re quested Visits Authorized [id number] Closed 03/13/2019 03/12/2020 1 1 Encounter Details Date Type Department Care Team (Late Contact Info) Description 03/13/2019 Ancillary Orders Virtual Department [address] [place] [address] Compa Monsalve MD [address] [address] Cervical disc disorder with radiculopathy, unspecified cervical [...] PM EST Appointment Department of Radiation Oncology [address] [place] [address] Susy Murphy PA-C [address] [place] [address] [place] [address] [email or web address] 02/19/2025 3:00 PM EST Office Visit [facility] [address] [place] [address] Ja Holley MD [address] [place] [address] 04/30/2025 10:30 AM EDT Office Visit [facility] [address] [place] [address] Fredi Elaine DO [address] [place] [address] 07/22/2025 9:40 AM EDT Office Visit [facility] [address] [facility] 3rd Floor, [address] [place] [address] Asif Araiza MD, MS [address] [place] [address] Scheduled Procedures Name Priority Associated Diagnoses Date/Ti [...] patient's symptoms and neurological exam. POS - [id number] Narrative 03/20/2019 10:18 AM EST MRI CERVICAL [...] patient's symptoms and neurological exam. POS - [id number] Compa Monsalve MD IMG MR XSPECIALTY Fin [...] documented as of this encounter Care Teams Marketing Rep Relationship Specialty Start Date End Date Andrei Coon DO [address] [place] [address] [email or web address] PCP - General Family Medicine 01/08/19 01/03/20 Lupis Copeland MD [address] [place] [address] [email or web address] PCP - General Family Medicine 01/04/20 06/09/20 Gordon Moralez MD [address] [address] [email or web address] PCP - General 06/10/20 07/22/20 Ja Holley MD [address] [place] [address], [address] [place] [address] PCP - General Internal Medicine 07/23/20 Emile Blake MD [address] [address] Gastroenterology 10/31/18 Frank Mak MD [address] [place] [address], [address] [place] [address] [email or web address] Physical Medicine and Rehabilitation 11/14/20 [place] [address] Psychiatry 02/01/21 10/07/22 Rosalia Vargas, KATEY [address] [place] [address] PHC Electric Sign Assembler 02/12/21 03/10/21 Jamari Ellison DO [address] [place] [address] Orthopedics & Sports Medicine, [place] [address] [email or web address] Orthopedic Surgery 07/24/21 Fredi Unger MD [address] [place] [address] 2 [place] [address] Ophthalmology 07/24/21 Elroy Calderon MD [address] [place] [address], [address] [place] [address] [email or web address] Urology 10/27/21 Ja Holley MD [address] [place] [address], [address] [place] [address] [email or web address] Insurance Assigned Provider 05/28/23 Bartolo Morgan MD [address] [place] [address] Psychiatry 10/08/22 Molly Spring RN [address] [place] [address] [email or web address] Sign Assembler 02/07/23 10/07/24 Criss Cosme [address] [place] [address] [email or web address] [facility] Community Health Worker 03/29/23 03/29/23 Maximino Dorado MD, PhD [address] [place] [address] [email or web address] Radiation Oncology 05/03/23 Maximino Dorado MD, PhD [address] [place] [address] [email or web address] Radiation Oncology 06/01/23 06/25/23 [place] Thomson MD [address] [place] [address], 2[address] [place] [address] [email or web address] Physical Medicine and Rehabilitation 06/26/23 Dhaval Slater MD [address] [place] [address] [place] [address] Neurosurgery 07/07/23 documented as of this encounter Additional Source Comments The information contained in this document represents components of the legal health record. It is not the complete legal health record.[facility]
--- OUTSIDE RECORDS SUMMARY | 2024-12-13 06:26 | XMS_ITS | Encounter Summary ---
Author Organization [facility] Address [address] [place] [address] Phone Care Team Providers Care Radiology Technologist Name Role Phone Emile Blake MD Unavailable [phone] Ja Holley MD Primary Care Provider + [phone] Frank Mak MD Unavailable [phone] Jamari Ellison DO Unavailable [phone] Fredi Unger MD Unavailable [phone] Elroy Calderon MD Unavailable [phone] Ja Holley MD Unavailable [phone] Bartolo Morgan MD Unavailable [phone] Molly Spring RN Unavailable [email or web address] Criss Cosme Unavailable [phone] Maximino Dorado MD, PhD Unavailable [phone] Maximino Dorado MD, PhD Unavailable [phone] [place] Thomson MD Unavailable [phone] Dhaval Slater MD Unavailable Encounter Details Date Type Department Care Team (Late st Contact Info) Description 12/21/2022 Procedure Pass [facility], [address] [place] [address] Social History Tobacco Use Types Packs/Day Years [...] 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 file disabled Not on file Not on file Not on file documented as of this encounter Plan of Treatment Upcoming Encounters Date Type Department Care Team (Late st Contact Info) Description 12/28/2024 1:00 PM EST Appointment Department of Radiation Oncology [address] [address] Susy Murphy PA-C [address] [place], [place] [address]am [place] [address] [email or web address] 02/19/2025 3:00 PM EST Office Visit [address] [place] [address] Ja Holley MD [address] [place] [address], [address] [place] [address] 04/30/2025 10:30 AM EDT Office Visit [facility] [address] [place] [address] [place] [address] Fredi Elaine DO [address] [place] [address] 07/22/2025 9:40 AM EDT Office Visit [facility] [address] [place] [address] 3rd Floor, [address] [place] [address] Asif Araiza MD, MS [address] [place] [address], [address] [place] [address] Scheduled Procedures Name Priority Associated Diagnoses Date/Ti [...] documented as of this encounter Care Teams Radiology Technologist Relationship Specialty Start Date End Date Ja Holley MD [address] [place] [address], [address] [place] [address] PCP - General Internal Medicine 07/23/20 Emile Blake MD [address] [place] [address] Gastroenterology 10/31/18 Frank Mak MD [address] [place] [address], [address] [place] [address] [email or web address] Physical Medicine and Rehabilitation 11/14/20 Jamari Ellison DO [address] [place] [address] Orthopedics & Sports Medicine, [place] [address] Orthopedic Surgery 07/24/21 Fredi Unger MD [address] [place] [address] Ophthalmology 07/24/21 Elroy Calderon MD [address] [place] [address], [address] [place] [address] Urology 10/27/21 Ja Holley MD [address] [place] [address], [address] [place] [address] Insurance Assigned Provider 05/28/23 Bartolo Morgan MD [address] [place] [address] Psychiatry 10/08/22 Molly Spring RN [address] [place] [address] [email or web address] PHC Body Artist 02/07/23 10/07/24 Criss Cosme 10 [place] [address] [email or web address] Community Health Worker 03/29/23 03/29/23 Maximino Dorado MD, PhD [address] [place] [address] [email or web address] Radiation Oncology 05/03/23 Maximino Dorado MD, PhD [address] [place] [address] [email or web address] Radiation Oncology 06/01/23 06/25/23 [place] Thomson MD [address] [place] [address], [address] [place] [address] [email or web address] Physical Medicine and Rehabilitation 06/26/23 Dhaval Slater MD [address] [place] [address] Dr CALIX [address] [place] [address] Neurosurgery 07/07/23 documented as of this encounter Additional Source Comments The information contained in this document represents components of the legal health record. It is not the complete legal health record.[facility]
--- OUTSIDE RECORDS SUMMARY | 2024-12-13 06:26 | XMS_ITS ---
Author Organization [facility] Address [address] [place] [address] Phone Care Team Providers Care Silk Screen Painter Name Role Phone Emile Blake MD Unavailable Ja Holley MD Primary Care Provider [phone] Frank Mak MD Unavailable Jamari Ellison DO Unavailable Fredi Unger MD Unavailable Elroy Calderon MD Unavailable [phone] Ja Holley MD Unavailable Bartolo Morgan [...] current pain management regimen. -Consider consultation with rug touch up painter for further evaluation and treatment options. [...] him for planning to work with the [facility] pain clinic which I think is likely [...] to have a left knee replacement at [facility]. He will likely need a preop with me prior. Assessment & Plan (07/24/2021 10:15 AM EDT): Follow-up as planned with orthopedics he is planning to discuss possible knee replacement surgery Assessment & Plan (06/18/2021 9:19 AM EDT): Patient is considering total knee replacement. Asked him to follow-up with orthopedics. He is considering seeing an orthopedist at [facility] for Vitamin D deficiency 03/30/2021 Assessment & [...] and exercise and he has seen the constitutional law professor and has learned a great deal and [...] does have diabetes. He will see a wellness educator today and continue working on his [...] disease progressing. April 2023 started brachytherapy at [facility] Assessment & Plan (11/01/2024 3:26 PM EDT): [...] Considering having intermittent radium seeds implanted in [place]. Follow-up as planned with radiation oncology. Assessment [...] considering. No follow-up as planned with the [place] pain clinic. Degenerative disc disease, cervical 09/25/2020 [...] treated prejudicially and was never accepted to [employer]. He did study medicine in [...] also asked him to start services with [employer]. 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 Managed by Dr. Finney at [facility]. MRI lumbar spine November [...] treatment options with implantable devices with the [facility] pain clinic. Follow-up as scheduled. Assessment [...] ibuprofen with acetaminophen. Follow-up as planned with [facility], considering another steroid injection. [...] to look into getting involved with the [place] [facility] program. I think this is a very [...] Calderon. He will follow-up as scheduled with [facility] pain Assessment & Plan (12/26/2020 10:02 AM [...] He will try to do this at [facility] I did inform him this can [...] a DXA scan that was done at [facility] on 10/03/2020 his T-scores are all in [...] radiculopathy 12/10/2008 025 Overview (02/28/2024): Dr Rodriguez, [facility]
--- OUTSIDE RECORDS SUMMARY | 2024-12-13 06:26 | XMS_ITS | Clinical Summary ---
Author Organization [facility] Address [address] [place] [address] Phone Care Team Providers Care Irrigation District Manager Name Role Phone Emile Blake MD Unavailable Ja Holley MD Primary Care Provider Frank Mak MD Unavailable Jamari Ellison DO Unavailable Fredi Unger MD Unavailable Elroy Calderon MD Unavailable [phone] Ja Holley MD Unavailable Bartolo Morgan MD Unavailable Maximino Dorado MD, PhD Unavailable [phone] Lincoln Thomson MD Unavailable [phone] Dhaval Slater MD Unavailable Allergies No known active allergies Medications olopatadine (PATADAY) 0.2 % Drop as needed. [...] a day as needed. 10/03/19 25 Active pantoprazole (PROTONIX) 20 MG tablet TAKE ONE TABLET BY MOUTH EVERY DAY 30 tablet 5 11/30/19 25 Active pantoprazole (PROTONIX) 20 MG tablet Take 1 tablet by mouth as needed. 04/06/19 24 025 Discontinued Active Problems Problem Noted Date Diagnosed Date [...] current pain management regimen. -Consider consultation with cloth painter for further evaluation and treatment options. [...] him for planning to work with the [facility] pain clinic which I think is likely [...] to have a left knee replacement at [facility]. He will likely need a preop with me prior. Assessment & Plan (07/24/2021 10:15 AM EDT): Follow-up as planned with orthopedics he is planning to discuss possible knee replacement surgery Assessment & Plan (06/18/2021 9:19 AM EDT): Patient is considering total knee replacement. Asked him to follow-up with orthopedics. He is considering seeing an orthopedist at [facility] for Vitamin D deficiency 03/30/2021 Assessment & [...] and exercise and he has seen the special events fundraiser and has learned a great deal and [...] does have diabetes. He will see a medical educator today and continue working on his [...] disease progressing. April 2023 started brachytherapy at [facility] Assessment & Plan (11/01/2024 3:26 PM EDT): [...] Considering having intermittent radium seeds implanted in [place]. Follow-up as planned with radiation oncology. Assessment [...] considering. No follow-up as planned with the [place] pain clinic. Degenerative disc disease, cervical 09/25/2020 [...] treated prejudicially and was never accepted to [employer]. He did study medicine in [...] also asked him to start services with [employer]. 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 There is only brief [...] his 20s. Managed by Dr. Finney at [facility]. MRI lumbar spine November [...] treatment options with implantable devices with the [facility] pain clinic. Follow-up as scheduled. Assessment & [...] ibuprofen with acetaminophen. Follow-up as planned with [facility], considering another steroid injection. [...] to look into getting involved with the [employer] functional [employer] program. I think this is a very [...] Calderon. He will follow-up as scheduled with [facility] pain Assessment & Plan (12/26/2020 10:02 AM [...] He will try to do this at [facility] I did inform him this can [...] a DXA scan that was done at [facility] on 10/03/2020 his T-scores are all in [...] radiculopathy 12/10/2008 025 Overview (02/28/2024): Dr Rodriguez, [facility] Encounters Date Type Department Care Team Description 12/07/2024 Telephone [facility] [address] [place] [address] Louise Goetz Imaging Follow Up 11/28/2024 Refill [facility] [address] [place] [address] Emile Blake MD Medication Refill 11/15/2024 Telephone [facility] [address] [place] [address] Ja Holley MD Referral; Request For Order(s) 11/01/2024 3:00 PM EDT Office Visit [facility] [address] [place] [address] Ja oHlley MD Essential (primary) hypertension (Primary Dx); Type 2 diabetes mellitus without complication, without long-term current use of insulin; Degenerative disc disease, cervical; Generalized anxiety disorder; Prostate cancer; Gastroesophageal reflux disease without esophagitis 10/31/2024 12:10 PM EDT Office Visit [facility] [address] [place] [address] Fredi Elaine DO Type 2 diabetes mellitus without complication, without long-term current use of insulin (Primary Dx); Hyperlipidemia LDL goal <70 10/26/2024 Refill [facility] [address] [place] [address] Fredi Elaine DO Medication Refill 10/24/2024 12:30 PM EDT - 10/24/2024 11:59 PM EDT Hospital Encounter [facility] [address] [place] [address] Fredi Elaine DO Discharge Disposition: Home or Self Care 10/08/2024 Patient Outreach [facility] [address] [place] [address] Rosalia Vargas, KATEY Administration (iCMP Discharge ) 10/08/2024 Patient Outreach [facility] [address] [place] [address] Molly Spring, KATEY Care Coordination (iCMP Follow up outreach/NCM transition ) 10/03/2024 2:30 PM EDT Office Visit [facility] Orthopedics & Sports Medicine [address] [place] [address] Jamari Ellison DO Chronic pain of both shoulders (Primary Dx) 09/27/2024 Refill [facility] [address] [place] [address] Fredi Elaine DO Medication Refill 09/27/2024 Refill Department of Radiation Oncology [address] [place] [address] Susy Murphy PA-C Medication Refill from Last 3 Months Immunizations Immunization Administration [...] 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 02/19/2025 3:00 PM EST Office Visit [place] [address] [place] [address] Ja Holley MD [address] [facility], [address] [place] [address] 04/30/2025 10:30 AM EDT Office Visit [facility] [address] [place] [address] [place] [address] Fredi Elaine DO [address] [place] [address] 07/22/2025 9:40 AM EDT Office Visit [facility] [address] [place] [address] Dr 3rd Floor, [address] [place] [address] Asif Araiza MD, MS [address] [facility], [address] [place] [address] Scheduled Procedures Name Priority Associated Diagnoses Date/Ti wv COLONOSCOPY Gastroesophageal reflux disease with esophagitis without hemorrhage ESOPHAGOGASTRODUODENOSCOPY Gastroesophageal reflux disease with esophagitis without hemorrhage Health Maintenance Due Date Last Done Comments HEPATITIS A VACCINES (1 of 2 - Risk 2-dose series) 1969 COLOGUARD 09/08/1995 FIT TEST 09/08/1995 FOBT 09/08/1995 SIGMOIDOSCOPY 09/08/1995 VIRTUAL COLONOSCOPY 09/08/1995 DIABETIC EYE EXAM 11/09/2023 11/08/2022 INFLUENZA VACCINE (#1) 2024 , 11/18/2022, 11/18/2022, Additional history exists COVID-19 VACCINE ( season) 2024 12/06/2023, 11/18/2022, 10/31/2021, Additional history exists REPEAT PHQ 12/01/2024 11/01/2024, 11/01/2024 COLONOSCOPY 03/10/2025 03/10/2022, 01/20/2017 COLORECTAL CANCER SCREENING 03/10/2025 HEMOGLOBIN A1C 04/23/2025 10/24/2024, 05/1 , 12/15/2023, Additional history exists BLOOD PRESSURE 05/01/2025 [...] this topic Medical Devices Implanted Type Area Pay Clerk Device Identifier Shelf Expiration Date Model / Serial / Lot Mesh Graft 1.6x1.9in 4.1 4.8cm Lg Perfix Polypropylene Monofilament Plug Inguinal Hernia Soft Tissue Repair Cs/2ea - [id number] Implanted:Qty: 1 on 11/05/2020 by Monique Cuenca MD at [facility] STANDARD Left: Inguinal DAVOL 06/18/2025 [id number] / / [id number] Mesh Surgical 1 32/32in Hernia Prolene 3d Polypropylene Patch Bx/3ea - [id number] Implanted:Qty: 1 on 11/05/2020 by Monique Cuenca MD at [facility] STANDARD N/A: Umbilical JNJ ETHICON / DIVISION OF J 04/20/2024 [id number] / / [id number] Procedures Procedure Name Priority Date/Time Associated Diagnosis Comments HEMOGLOBIN A1C Routine 10/24/2024 12:33 PM EDT Type 2 diabetes mellitus without complication, without long-term current use of insulin 25-OH VITAMIN D Routine 10/24/2024 12:33 PM EDT Health care maintenance MICROALBUMIN/CREATIN INE RATIO, RANDOM URINE Routine 06/30/2024 [...] D (TOTAL) 59 30 - 60 ng/mL [facility] Blood 10/24/2024 12:3 3 PM EDT 10/24/2024 12:44 PM EDT [facility] LAB BLOOD ORDERABLES Final Resul t Performing Organization Address City/[facility]/ZIP Co de Phone Number [address] [address] * (ABNORMAL) Hemoglobin A1c (10/24/2024 12:33 PM EDT) HEMOGLOBIN A1C 6.1(H) 4.3 - 5.8 % [facility] Blood 10/24/2024 12:3 3 PM EDT 10/24/2024 12:44 PM EDT [facility] LAB BLOOD ORDERABLES Final Resul t [address] [address] * Microalbumin/creatinine ratio, random urine (06/30/2024 9:39 AM EDT) URINE MICROALBUMIN <1.2 0 - 2.3 mg/dL [facility] URINE CREATININE 39 mg/dL [facility] MICROALB/CRE RATIO NOT CALCULATED 0 - 20 mg/g Cre [facility] Comment:due to Microalbumin <1.2 Urine (Urine) 06/30/2024 9:3 9 AM EDT 06/30/2024 9:41 AM EDT us Fredi Elaine DO URINE ORDERABLES Final Result Performing Organization Address [facility] Co de Phone Number [address] [address] * DIABETES EYE EXAM FOR RESULT ENTRY ONLY (11/08/2022) us Historical Provider HEALTH MAINTENANCE Edited Result - Final * COLONOSCOPY FOR RESULT ENTRY ONLY (03/10/2022) us Ja Holley MD HEALTH MAINTENANCE Edited Result - Final * Hepatitis C antibody, qualitative (03/28/2017 1:35 PM EST) HCV Negative Negative [facility] Comment: This is a screening test and should be confirmed with molecular testing Blood 03/28/2017 1:35 PM EST 03/28/2017 1:39 PM EST us Emile Blake MD LAB BLOOD ORDERABLES Final R esult Performing Organization Address [facility] Co de Phone Number [address] [address] from Last 3 Months or Most Recently Relevant to Health Maintenance Insurance MEDICARE PART A & [facility] A & B [facility] MEDICARE PART A & B HEALTH MEDICARE PART A & B MEDICARE [place]ALTH MEDICARE [place] MED[place] & [place] HEALTH MEDICARE PART A & B [facility] Advance Directives For more information, please contact: [phone] (9AM - 5PM [facility], Tuesday-Tuesday) Documents on File Type Date Recorded Patient Admission Nurse Coordinator Expl anation Healthcare Proxy 08/04/2018 2:10 PM HC PRO XY * Full Code (Latest Code Status on File) Date Activated Date Inactivated Comments 11/05/2020 11:05 AM Question Answer Comments Code Status Confirmed With: Patient Care Teams Irrigation District Manager Relationship Specialty Start Date End Date Ja Holley MD [address] [place] [address], [address] [place] [address] PCP - General Internal Medicine 07/23/20 Emile Blake MD [address] [place] [address] Gastroenterology 10/31/18 Frank Mak MD [address] [place] [address], [address] [place] [address] [email or web address] Physical Medicine and Rehabilitation 11/14/20 Jamari Ellison DO [address] [place] [address] Orthopedics & Sports Medicine, [place] [address] Orthopedic Surgery 07/24/21 Fredi Unger MD [address] [place] [address] Ophthalmology 07/24/21 Elroy Calderon MD [address] [place] [address], [address] [place] [address] Urology 10/27/21 Ja Holely MD [address] [place] [address], [address] [place] [address] [email or web address] Insurance Assigned Provider 05/28/23 Bartolo Morgan MD [address] [place] [address] Psychiatry 10/08/22 Maximino Dorado MD, PhD [address] [place] [address] [email or web address] Radiation Oncology 05/03/23 Lincoln Thomson MD [address] [place] [address], 2nd [place] [address] Physical Medicine and Rehabilitation 06/26/23 Dhaval Slater MD [address] [place] [address] Neurosurgery 07/07/23 Additional Source Comments The information contained in this document represents components of the legal health record. It is not the complete legal health record.[facility]
--- OUTSIDE RECORDS SUMMARY | 2024-12-13 06:26 | XMS_ITS | Encounter Summary ---
Author Organization [facility] Address [address] [place] [address] Phone Care Team Providers Care Denitrator Name Role Phone Emile Blake MD Unavailable [phone] Andrei Coon DO Primary Care Provider Lupis Copeland MD Primary Care Provider Gordon Moralez MD Primary Care Provider [phone] Ja Holley MD Primary Care Provider [phone] Frank Mak MD Unavailable Alfonzo Perkins MD Unavailable Rosalia Vargas RN Unavailable Jamari Ellison DO Unavailable Fredi Unger MD Unavailable Elroy Calderon MD Unavailable [phone] Ja Holley MD Unavailable Bartolo Morgan MD Unavailable [phone] Molly Spring RN Unavailable [email or web address] Criss Cosme Unavailable [phone] Maximino Dorado MD, PhD Unavailable [phone] Maximino Dorado MD, PhD Unavailable [phone] Lincoln Thomson MD Unavailable Dhaval Slater MD Unavailable Encounter Details Date Type Department Care Team (Late st Contact Info) Description 12/04/2019 Procedure Pass [facility] - [address] [address] Social History Tobacco Use Types Packs/Day Years [...] PM EST Appointment Department of Radiation Oncology [address] [place] [address] Susy Murphy PA-C [address] [place], [place] [address]am [place] [address] [email or web address] 02/19/2025 3:00 PM EST Office Visit [address] [place] [address] Ja Holley MD 22 [facility], [address] [place] [address] 04/30/2025 10:30 AM EDT Office Visit [facility] [address] [place] [address] Fredi Elaine DO 22 [place] [address] 07/22/2025 9:40 AM EDT Office Visit [facility] 22 [facility] 3rd Floor, [address] [place] [address] Asif Araiza MD, MS 22 [facility], [address] [place] [address] [email or web address] Scheduled [...] documented as of this encounter Care Teams Denitrator Relationship Specialty Start Date End Date Andrei Coon DO [address] [place] [address] [email or web address] PCP - General Family Medicine 01/08/19 01/03/20 Lupis Copeland MD [address] [place] [address] [email or web address] PCP - General Family Medicine 01/04/20 06/09/20 Gordon Moralez MD [address] [employer] [address] [place] [address] [email or web address] PCP - General 06/10/20 07/22/20 Ja Holley MD [address] [place] [address], [address] [place] [address] PCP - General Internal Medicine 07/23/20 Emile Blake MD [address] [place] [address] Gastroenterology 10/31/18 Frank Mak MD [address] [place] [address], [address] [place] [address] [email or web address] Physical Medicine and Rehabilitation 11/14/20 [place] [address] Psychiatry 02/01/21 10/07/22 Rosalia Vargas, KATEY [address] [place] [address] PHC Customer Service Engineer 02/12/21 03/10/21 Jamari Ellison DO [address] [place] [address] [facility] [place] [address] Orthopedic Surgery 07/24/21 Fredi Unger MD [address] [place] [address] Ophthalmology 07/24/21 Elroy Calderon MD [facility], [address] [place] [address] [email or web address] Urology 10/27/21 Ja Holley MD [address] [place] [address], [address] [place] [address] [email or web address] Insurance Assigned Provider 05/28/23 Bartolo Morgan MD [address] [place] [address] Psychiatry 10/08/22 Molly Spring RN [address] [place] [address] [email or web address] PHCM Customer Service Engineer 02/07/23 10/07/24 Criss Cosme [address] [place] [address] [email or web address] PHC Community Health Worker 03/29/23 03/29/23 Maximino Dorado MD, PhD [address] [place] [address] [email or web address] Radiation Oncology 05/03/23 Maximino Dorado MD, PhD [address] [place] [address] [email or web address] Radiation Oncology 06/01/23 06/25/23 Lincoln Thomson MD [address] [place] [address], 2nd [place] [address] [email or web address] Physical Medicine and Rehabilitation 06/26/23 Dhaval Slater MD [address] [place] [address] Dr CALIX [address] [place] [address] Neurosurgery 07/07/23 documented as of this encounter Additional Source Comments The information contained in this document represents components of the legal health record. It is not the complete legal health record.[facility]
--- OUTSIDE RECORDS SUMMARY | 2024-12-13 06:26 | XMS_ITS | Encounter Summary ---
Author Organization [facility] Address [address] [place] [address] Phone Care Team Providers Care Supply Officer Name Role Phone Emile Blake MD Unavailable [phone] Lupis Copeland MD Primary Care Provider Gordon Moralez MD Primary Care Provider [phone] Ja Holley MD Primary Care Provider [phone] Frank Mak MD Unavailable [phone] Alfonzo Perkins MD Unavailable Rosalia Vargas RN Unavailable Jamari Ellison DO Unavailable [phone] Fredi Unger MD Unavailable Elroy Calderon MD Unavailable [phone] Ja Holley MD Unavailable [phone] Bartolo Morgan MD Unavailable [phone] Molly Spring RN Unavailable [email or web address] Criss Cosme Unavailable [phone] Maximino Dorado MD, PhD Unavailable [phone] Maximino Dorado MD, PhD Unavailable [phone] Lincoln Thomson MD Unavailable [phone] Dhaval Slater MD Unavailable Encounter Details Date Type Department Care Team (Late st Contact Info) Description 01/09/2020 Telephone [facility] Department of Orthopaedic Surgery, Foot & Ankle Service [address] [facility], 3rd Floor, [address] [place] [address] Joel Cardona MD [address] [facility] [address] [place] [address] [email or web address] Social History Tobacco Use Types Packs/Day Years [...] PM EST Appointment Department of Radiation Oncology [address] [place] [address] Susy Murphy PA-C [address] [place] [address] [place] [address] [email or web address] 02/19/2025 3:00 PM EST Office Visit [facility] [address] [place] [address] Ja Holley MD 22 [facility], [address] [place] [address] 04/30/2025 10:30 AM EDT Office Visit [facility] [address] [place] [address] [place] [address] Fredi Elaine DO [address] [place] [address] 07/22/2025 9:40 AM EDT Office Visit [facility] [address] [place] [address] 3rd Floor, [address] [place] [address] Asif Araiza MD, MS [address] [facility], [address] [place] [address] [email or web address] Scheduled Procedures Name Priority Associated Diagnoses Date/Ti [...] documented as of this encounter Care Teams Supply Officer Relationship Specialty Start Date End Date Lupis Copeland MD [address] [place] [address] [email or web address] PCP - General Family Medicine 01/04/20 06/09/20 Gordon Moralez MD [address] [place] [address] Saji [email or web address] PCP - General 06/10/20 07/22/20 Ja Holley MD [address] [facility], [address] [place] [address] [email or web address] PCP - General Internal Medicine 07/23/20 Emile Blake MD [address] [place] [address] [email or web address] Gastroenterology 10/31/18 Frank Mak MD [address] [place] [address], [address] [place] [address] [email or web address] Physical Medicine and Rehabilitation 11/14/20 [place] [address] Psychiatry 02/01/21 10/07/22 Rosalia Vargas RN [address] [place] [address] [email or web address] [place] Geothermal Field Technician 02/12/21 03/10/21 Jamari Ellison DO [address] [place] [address] Orthopedics & Sports Medicine, [place] [address] [email or web address] Orthopedic Surgery 07/24/21 Fredi Unger MD [address] [place] [address] Ophthalmology 07/24/21 Elroy Calderon MD [address] [place] [address], [address] [place] [address] [email or web address] Urology 10/27/21 Ja Holley MD [address] [place] [address], [address] [place] [address] [email or web address] Insurance Assigned Provider 05/28/23 Bartolo Morgan MD [address] [address] Psychiatry 10/08/22 Molly Spring RN [address] [address] [email or web address] PHC Geothermal Field Technician 02/07/23 10/07/24 Criss Cosme [address] [place] [address] [email or web address] PHC Community Health Worker 03/29/23 03/29/23 Maximino Dorado MD, PhD [address] [place] [address] [email or web address] Radiation Oncology 05/03/23 Maximino Dorado MD, PhD [address] [place] [address] [email or web address] Radiation Oncology 06/01/23 06/25/23 Lincoln Thomson MD [address] [place] [address], [address] [place] [address] [email or web address] Physical Medicine and Rehabilitation 06/26/23 Dhaval Slater MD [address] [place] [address] Dr CALIX [address] [place] [address] Neurosurgery 07/07/23 documented as of this encounter Additional Source Comments The information contained in this document represents components of the legal health record. It is not the complete legal health record.[facility]
--- OUTSIDE RECORDS SUMMARY | 2024-12-13 06:26 | XMS_ITS | Encounter Summary ---
Author Organization [facility] Address [address] [place] [address] Phone Care Team Providers Care Pipe Fitter Helper Name Role Phone Emiel Blake MD Unavailable [phone] Andrei Coon DO Primary Care Provider [phone] Lupis Copeland MD Primary Care Provider Gordon Moralez MD Primary Care Provider [phone] Ja Holley MD Primary Care Provider [phone] Frank Mak MD Unavailable Alfonzo Perkins MD Unavailable Rosalia Vargas RN Unavailable [phone] Jamari Ellison DO Unavailable Fredi Unger MD Unavailable Elroy Calderon MD Unavailable [phone] Ja Holley MD Unavailable Bartolo Morgan MD Unavailable [phone] Molly Spring RN Unavailable [email or web address] Criss Cosme Unavailable [phone] Maximino Dorado MD, PhD Unavailable [phone] Maximino Dorado MD, PhD Unavailable [phone] Lincoln Thomson MD Unavailable Dhaval Slater MD Unavailable Reason for Referral * MRI/CAT Scan - Closed Specialty Diagnoses / Procedures Referred By Glory pablo Referred To Contact Radiology Diagnoses Spondylosis Lumbar radiculopathy Procedures MRI Lumbar Spine Frank Finney PA Phone: tel: Referral ID Status Reason Start Date Expiration Date Visits Re quested Visits Authorized [id number] Closed 12/04/2019 12/03/2020 1 1 Encounter Details Date Type Department Care Team (Latest Contact Info) Description 12/04/2019 Ancillary Orders Virtual Department 30 [place] [address] Frank Finney PA 16 [facility] John 1 [place] [address] Spondylosis; Lumbar radiculopathy Social History Tobacco Use [...] PM EST Appointment Department of Radiation Oncology [address] [place] [address] Susy Murphy PA-C [address] [place], [place] [address]am and Women[place] [address] [email or web address] 02/19/2025 3:00 PM EST Office Visit [facility] [address] [place] [address] Ja Holley MD 22 [facility], [address] [place] [address] [email or web address] 04/30/2025 10:30 AM EDT Office Visit [facility] [address] [place] [address] Fredi Elaine DO 22 [place] [address] 07/22/2025 9:40 AM EDT Office Visit [facility] [address]rd Floor, [address] [place] [address] Asif Araiza MD, MS 22 [facility], [address] [place] [address] Scheduled Procedures Name Priority Associated Diagnoses Date/Ti [...] spine MRI. POS - [id number] Frank SALES [facility] XSPECIALTY Final Result documented in this encounter [...] documented as of this encounter Care Teams Pipe Fitter Helper Relationship Specialty Start Date End Date Andrei Coon DO [address] [place] [address] [email or web address] PCP - General Family Medicine 01/08/19 01/03/20 Lupis Copeland MD [address] [place] [address] [email or web address] PCP - General Family Medicine 01/04/20 06/09/20 Gordon Moralez MD 110 [facility] [address] [place] [address] Saji [email or web address] PCP - General 06/10/20 07/22/20 Ja Holley MD [address] [place] [address], [address] [place] [address] PCP - General Internal Medicine 07/23/20 Emile Blake MD [address] [address] Gastroenterology 10/31/18 Frank Mak MD [address] [place] [address], [address] [place] [address] [email or web address] Physical Medicine and Rehabilitation 11/14/20 [place] [address] Psychiatry 02/01/21 10/07/22 Rosalia Vargas RN 30 [place] [address] PHCM Icu Nurse 02/12/21 03/10/21 Jamari Ellison DO [address] [place] [address] Orthopedics & Sports Medicine, [place] [address] [email or web address] Orthopedic Surgery 07/24/21 Fredi Unger MD [address] [place] [address] 2 [place] [address] Ophthalmology 07/24/21 Elroy Calderon MD [address] [place] [address], [address] [place] [address] [email or web address] Urology 10/27/21 Ja Holley MD [address] [place] [address], [address] [place] [address] [email or web address] Insurance Assigned Provider 05/28/23 Bartolo Morgan MD [address] [place] [address] Psychiatry 10/08/22 Molly Spring RN [address] [place] [address] [email or web address] [email or web address] Nurse 02/07/23 10/07/24 Criss Cosme 10 [place] [address] [email or web address] [facility] Community Health Worker 03/29/23 03/29/23 Maximino Dorado MD, PhD [address] [place] [address] [email or web address] Radiation Oncology 05/03/23 Maximino Dorado MD, PhD [address] [place] [address] [email or web address] Radiation Oncology 06/01/23 06/25/23 Lincoln Thomson MD [address] [place] [address], 2nd [place] [address] [email or web address] Physical Medicine and Rehabilitation 06/26/23 Dhaval Slater MD [address] [place] [address] [place] [address] Neurosurgery 07/07/23 documented as of this encounter Additional Source Comments The information contained in this document represents components of the legal health record. It is not the complete legal health record.[facility]
--- OUTSIDE RECORDS SUMMARY | 2024-12-13 06:26 | XMS_ITS | Encounter Summary ---
Author Organization [facility] Address [address] [place] [address] Phone Care Team Providers Care Hand Cutter Name Role Phone Emile Blake MD Unavailable [phone] Ja Holley MD Primary Care Provider [phone] Frank Mak MD Unavailable [phone] Alfonzo Perkins MD Unavailable Jamari Ellison DO Unavailable [phone] Fredi Unger MD Unavailable Elroy Calderon MD Unavailable [phone] Ja Holley MD Unavailable [phone] Bartolo Morgan MD Unavailable [phone] Molly Spring RN Unavailable [email or web address] Criss Cosme Unavailable [phone] Maximino Dorado MD, PhD Unavailable [phone] Maximino Dorado MD, PhD Unavailable [phone] Lincoln Thomson MD Unavailable [phone] Dhaval Slater MD Unavailable Encounter Details Date Type Department Care Team (Late st Contact Info) Description 07/28/2021 Procedure Pass [facility], [address] [place] [address] Social History Tobacco Use Types Packs/Day Years [...] high school, GED, job training, learning the Austrian language, technical skills, or developing parenting skills)? 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 Not on file Not on file Not on file documented as of this encounter Plan of Treatment Upcoming Encounters Date Type Department Care Team (Late st Contact Info) Description 12/28/2024 1:00 PM EST Appointment Department of Radiation Oncology [address] [address] Susy Murphy PA-C [address] [place], [place] [address]am [place] [address] [email or web address] 02/19/2025 3:00 PM EST Office Visit [address] [place] [address] Ja Holley MD [address] [place] [address], [address] [place] [address] 04/30/2025 10:30 AM EDT Office Visit [facility] [address] [place] [address] [place] [address] Fredi Elaine DO [address] [place] [address] 07/22/2025 9:40 AM EDT Office Visit [facility] [address] [place] [address] Dr 3rd Floor, [address] [place] [address] Asif Araiza MD, MS [address] [place] [address], [address] [place] [address] Scheduled Procedures Name Priority Associated Diagnoses Date/Ti tx COLONOSCOPY Gastroesophageal reflux disease with esophagitis without [...] documented as of this encounter Care Teams Hand Cutter Relationship Specialty Start Date End Date Ja Holley MD [address] [place] [address], [address] [place] [address] PCP - General Internal Medicine 07/23/20 Emile Blake MD [address] [place] [address] Gastroenterology 10/31/18 Frank Mak MD [address] [place] [address], [address] [place] [address] [email or web address] Physical Medicine and Rehabilitation 11/14/20 [place] [address] Psychiatry 02/01/21 10/07/22 Jamari Ellison DO [address] [place] [address] Orthopedics & Sports Medicine, [place] [address] Orthopedic Surgery 07/24/21 Fredi Unger MD [address] [place] [address] Ophthalmology 07/24/21 Elroy Calderon MD [address] [place] [address], [address] [place] [address] Urology 10/27/21 Ja Holley MD 22 [facility], [address] [place] [address] [email or web address] Insurance Assigned Provider 05/28/23 Bartolo Morgan MD [address] [place] [address] Psychiatry 10/08/22 Molly Spring RN [address] [address] [email or web address] Soil Sampler 02/07/23 10/07/24 Criss Cosme [address] [place] [address] [email or web address] martín [facility] Community Health Worker 03/29/23 03/29/23 Maximino Dorado MD, PhD [address] [place] [address] [email or web address] Radiation Oncology 05/03/23 Maximino Dorado MD, PhD [address] [place] [address] [email or web address] Radiation Oncology 06/01/23 06/25/23 Lincoln Thomson MD [address] [place] [address], 2nd [place] [address] [email or web address] Physical Medicine and Rehabilitation 06/26/23 Dhaval Slater MD [address] [place] [address] Dr CALIX [address] [place] [address] Neurosurgery 07/07/23 documented as of this encounter Additional Source Comments The information contained in this document represents components of the legal health record. It is not the complete legal health record.[facility]
--- OUTSIDE RECORDS SUMMARY | 2024-12-13 06:26 | XMS_ITS | Encounter Summary ---
Author Organization [facility] Address [address] [place] [address] Phone Care Team Providers Care Supervisor Drying And Softening Name Role Phone Emile Blake MD Unavailable [phone] Ja Holley MD Primary Care Provider + [phone] Frank Mak MD Unavailable [phone] Jamari Ellison DO Unavailable [phone] Fredi Unger MD Unavailable [phone] Elroy Calderon MD Unavailable [phone] Ja Holley MD Unavailable [phone] Bartolo Morgan MD Unavailable [phone] Molly Spring RN Unavailable [email or web address] Maximino Dorado MD, PhD Unavailable [phone] Lincoln Thomson MD Unavailable [phone] Dhaval Slater MD Unavailable Encounter Details Date Type Department Care Team (Late st Contact Info) Description 10/14/2023 Procedure Pass 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 [...] EST Appointment Department of Radiation Oncology [address] [place] [address] Susy Murphy PA-C [address] [place] [address] [place] [address] [email or web address] 02/19/2025 3:00 PM EST Office Visit [address] [place] [address] Ja Holley MD [address] [place] [address], [address] [place] [address] 04/30/2025 10:30 AM EDT Office Visit [facility] [address] [place] [address] Fredi Elaine DO 22 [place] [address] 07/22/2025 9:40 AM EDT Office Visit [facility] [address] [place] [address] 3rd Floor, [address] [place] [address] Asif Araiza MD, MS 22 [facility], [address] [place] [address] [email or web address] Scheduled Procedures Name Priority Associated Diagnoses Date/Ti ar COLONOSCOPY Gastroesophageal reflux disease with esophagitis without hemorrhage ESOPHAGOGASTRODUODENOSCOPY Gastroesophageal reflux disease with esophagitis without hemorrhage documented as of this encounter Visit Diagnoses Not on filedocumented in this encounter Additional Health Concerns Assessment Noted Time PHQ-9 Depression Total Score: 024 3:21 PM EDT PHQ-2 Depression Total Score: 09/20/19 24 3:21 PM EDT documented as of this encounter Care Teams Supervisor Drying And Softening Relationship Specialty Start Date End Date Ja Holley MD [address] [place] [address], [address] [place] [address] [email or web address] PCP - General Internal Medicine 07/23/20 Emile Blake MD [address] [place] [address] [email or web address] Gastroenterology 10/31/18 Frank Mak MD [address] [place] [address], [address] [place] [address] [email or web address] Physical Medicine and Rehabilitation 11/14/20 Jamari Ellison DO [address] [place] [address] [facility] [place], [place] [address] [email or web address] Orthopedic Surgery 07/24/21 Fredi Unger MD [address] [place] [address] Ophthalmology 07/24/21 Elroy Calderon MD [address] [place] [address], [address] [place] [address] Urology 10/27/21 Ja Holley MD [address] [place] [address], [address] [place] [address] [email or web address] Insurance Assigned Provider 05/28/23 Bartolo Morgan MD [address] [place] [address] Psychiatry 10/08/22 Molly Spring RN [address] [place] [address] [email or web address] Taxi Driver Supervisor 02/07/23 10/07/24 Maximino Dorado MD, PhD [address] [place] [address] [email or web address] Radiation Oncology 05/03/23 Lincoln Thomson MD [address] [place] [address], 2nd [place] [address] [email or web address] Physical Medicine and Rehabilitation 06/26/23 Dhaval Slater MD [address] [place] [address] [place] [address] Neurosurgery 07/07/23 documented as of this encounter Additional Source Comments The information contained in this document represents components of the legal health record. It is not the complete legal health record.[facility]
--- OUTSIDE RECORDS SUMMARY | 2024-12-13 06:27 | XMS_ITS | Encounter Summary ---
Author Organization [facility] Address [address] [place] [address] Phone Care Team Providers Care Lining Brusher Name Role Phone Kellee Gomez Allan PRICE Primary Care Provider [phone] Leonel Alegria MD Primary Care Provider Emile Blake MD Unavailable [phone] Andrei Coon DO Primary Care Provider [phone] Lupis Copeland MD Primary Care Provider Gordon Moralez MD Primary Care Provider + [phone] Ja Holley MD Primary Care Provider [phone] Frank Mak MD Unavailable [phone] Alfonzo Perkins MD Unavailable [phone] Rosalia Vargas RN Unavailable [phone] Jamari Ellison DO Unavailable [phone] Fredi Unger MD Unavailable [phone] Elroy Calderon MD Unavailable [phone] Ja Holley MD Unavailable [phone] Bartolo Morgna MD Unavailable [phone] Molly Spring RN Unavailable [email or web address] Criss Cosme Unavailable [phone] Maximnio Dorado MD, PhD Unavailable [phone] Maximino Dorado MD, PhD Unavailable [phone] Lincoln Thomson MD Unavailable [phone] Dhaval Slater MD Unavailable Encounter Details Date Type Department Care Team (Late Contact Info) Description 03/02/2017 Ancillary Orders Virtual Department 30 [place] [address] Emile Blake MD [address] [place] [address] Lower abdominal pain; Abnormal results of liver [...] PM EST Appointment Department of Radiation Oncology [address] [place] [address] Susy Murphy PA-C [address] [place], [place] [address]am [place] [address] [email or web address] 02/19/2025 3:00 PM EST Office Visit [facility] [address] [place] [address] Ja Holley MD 22 [facility], [address] [place] [address] 04/30/2025 10:30 AM EDT Office Visit [facility] [address] [place] [address] Fredi Elaine DO 22 [place] [address] 07/22/2025 9:40 AM EDT Office Visit [facility] [address] 3rd Floor, [address] [place] [address] Asif Araiza MD, MS 22 [facility], [address] [place] [address] [email or web address] Scheduled Procedures Name Priority Associated [...] of the sigmoid colon POS - [id number] us Emile Blake MD IMG CT ABD/PELVIS Edited [...] documented as of this encounter Care Teams Lining Brusher Relationship Specialty Start Date End Date Kellee Gomez FNP [address] [place] [address] [email or web address] PCP - General Family Medicine 01/19/17 05/19/17 [place] [address] [email or web address] PCP - General Internal Medicine 05/20/17 01/07/19 Andrei Coon DO [address] [place] [address] [email or web address] PCP - General Family Medicine 01/08/19 01/03/20 Lupis Copeland MD [address] [place] [address] [email or web address] PCP - General Family Medicine 01/04/20 06/09/20 Gordon Moralez MD [address] [address] Saji [email or web address] g PCP - General 06/10/20 07/22/20 Ja Holley MD [address] [place] [address], [address] [place] [address] PCP - General Internal Medicine 07/23/20 Emile Blake MD [address] [place] [address] Gastroenterology 10/31/18 Frank Mak MD [address] [place] [address], [address] [place] [address] [email or web address] Physical Medicine and Rehabilitation 11/14/20 [place] [address] Psychiatry 02/01/21 10/07/22 Rosalia Vargas, KATEY [address] [place] [address] [facility] Stock Parts Inspector 02/12/21 03/10/21 Jamari Ellison DO [address] [place] [address] [facility] [place] [address] [email or web address] Orthopedic Surgery 07/24/21 Fredi Unger MD [address] [place] [address] 2 [place] [address] Ophthalmology 07/24/21 Elroy Calderon MD [address] [place] [address], [address] [place] [address] [email or web address] Urology 10/27/21 Ja Holley MD [address] [place] [address], [address] [place] [address] [email or web address] Insurance Assigned Provider 05/28/23 Bartolo Morgan MD [address] [place] [address] Psychiatry 10/08/22 Molly Spring, KATEY [address] [place] [address] [email or web address] Stock Parts Inspector 02/07/23 10/07/24 Criss Cosme 10 [place] [address] [email or web address] PHC Community Health Worker 03/29/23 03/29/23 Maximino Dorado MD, PhD [address] [place] [address] [email or web address] Radiation Oncology 05/03/23 Maximino Dorado MD, PhD [address] [place] [address] [email or web address] Radiation Oncology 06/01/23 06/25/23 Lincoln Thomson MD [address] [place] [address], 2nd [place] [address] [email or web address] Physical Medicine and Rehabilitation 06/26/23 Dhaval Slater MD [address] [place] [address] Dr CALIX [address] [place] [address] Neurosurgery 07/07/23 documented as of this encounter Additional Source Comments The information contained in this document represents components of the legal health record. It is not the complete legal health record.[facility]
--- OUTSIDE RECORDS SUMMARY | 2024-12-13 06:27 | XMS_ITS | Encounter Summary ---
Author Organization [facility] Address [address] [place] [address] Phone Care Team Providers Care Entertainment Production Professional Name Role Phone Emile Blake MD Unavailable [phone] Ja Holley MD Primary Care Provider [phone] Frank Mak MD Unavailable Alfonzo Perkins MD Unavailable Jamari Ellison DO Unavailable [phone] Fredi Unger MD Unavailable Elroy Calderon MD Unavailable [phone] Ja Holley MD Unavailable [phone] Bartolo Morgan MD Unavailable [phone] Molly Spring RN Unavailable [email or web address] Criss Cosme Unavailable [phone] Maximino Dorado MD, PhD Unavailable [phone] Maximino Dorado MD, PhD Unavailable [phone] Lincoln Thomson MD Unavailable [phone] Dhaval Slater MD Unavailable Encounter Details Date Type Department Care Team (Late st Contact Info) Description 12/23/2021 Procedure Pass OR Admitting Dept - Virtual Department 30 [place], [place] [id number] Social History Tobacco Use Types Packs/Day Years [...] high school, GED, job training, learning the Paraguayan language, technical skills, or developing parenting skills)? 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 Not on file Not on file Not on file documented as of this encounter Plan of Treatment Upcoming Encounters Date Type Department Care Team (Late st Contact Info) Description 12/28/2024 1:00 PM EST Appointment Department of Radiation Oncology [address] [address] Susy Murphy PA-C [address] [place], [place] [address]am [place] [address] [email or web address] 02/19/2025 3:00 PM EST Office Visit [address] [place] [address] Ja Holley MD [address] [place] [address], [address] [place] [address] 04/30/2025 10:30 AM EDT Office Visit [facility] [address] [place] [address] [place] [address] Fredi Elaine DO [address] [place] [address] 07/22/2025 9:40 AM EDT Office Visit [facility] [address] [place] [address] Dr 3rd Floor, [address] [place] [address] Asif Araiza MD, MS [address] [place] [address], [address] [place] [address] Scheduled Procedures Name Priority Associated Diagnoses Date/Ti ne COLONOSCOPY Gastroesophageal reflux disease with esophagitis without [...] documented as of this encounter Care Teams Entertainment Production Professional Relationship Specialty Start Date End Date Ja Holley MD [address] [place] [address], [address] [place] [address] PCP - General Internal Medicine 07/23/20 Emile Blake MD [address] [place] [address] Gastroenterology 10/31/18 Frank Mak MD [address] [place] [address], [address] [place] [address] [email or web address] Physical Medicine and Rehabilitation 11/14/20 [place] [address] Psychiatry 02/01/21 10/07/22 Jamari Ellison DO [address] [place] [address] Orthopedics & Sports Medicine, [place] [address] Orthopedic Surgery 07/24/21 Fredi Unger MD [address] [place] [address] Ophthalmology 07/24/21 Elroy Calderon MD [address] [place] [address], [address] [place] [address] Urology 10/27/21 Ja Holley MD 22 [facility], [address] [place] [address] [email or web address] Insurance Assigned Provider 05/28/23 Bartolo Morgan MD [address] [place] [address] Psychiatry 10/08/22 Molly Spring RN [address] [address] [email or web address] PHC Senior Loss Control Specialist 02/07/23 10/07/24 Cirss Cosme [address] [place] [address] [email or web address] [facility] Community Health Worker 03/29/23 03/29/23 Maximino Dorado MD, PhD [address] [place] [address] [email or web address] Radiation Oncology 05/03/23 Maximino Dorado MD, PhD [address] [place] [address] [email or web address] Radiation Oncology 06/01/23 06/25/23 Lincoln Thomson MD [address] [place] [address], 2nd [place] [address] [email or web address] Physical Medicine and Rehabilitation 06/26/23 Dhaval Slater MD [address] [place] [address] Dr CALIX [address] [place] [address] Neurosurgery 07/07/23 documented as of this encounter Additional Source Comments The information contained in this document represents components of the legal health record. It is not the complete legal health record.[facility]
--- OUTSIDE RECORDS SUMMARY | 2024-12-13 06:27 | XMS_ITS | Encounter Summary ---
Author Organization [facility] Address [address] [place] [address] Phone Care Team Providers Care Information Assurance Manager Name Role Phone Emile Blake MD Unavailable Ja Holley MD Primary Care Provider [phone] Frank Mak MD Unavailable Alfonzo Perkins MD Unavailable Rosalia Vargas RN Unavailable [phone] Jamari Ellison DO Unavailable [phone] Fredi Unger MD Unavailable Elroy Calderon MD Unavailable [phone] Ja Holley MD Unavailable [phone] Bartolo Morgan MD Unavailable [phone] Molly Spring RN Unavailable [email or web address] Criss Cosme Unavailable [phone] Maximino Dorado MD, PhD Unavailable [phone] Maximino Dorado MD, PhD Unavailable [phone] Lincoln Thomson MD Unavailable [phone] Dhaval Slater MD Unavailable Encounter Details Date Type Department Care Team (Late st Contact Info) Description 02/24/2021 Telephone [facility] [address] [place] [address] Ja Holley MD 22 [facility], [address] [place] [address] [email or web address] Social History Tobacco Use Types Packs/Day Years [...] high school, GED, job training, learning the Kittitian language, technical skills, or developing parenting skills)? 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 [...] EST Appointment Department of Radiation Oncology [address] [place] [address] Susy Murphy PA-C [address] [place] [address] [place] [address] [email or web address] 02/19/2025 3:00 PM EST Office Visit [facility] [address] [place] [address] Ja Holley MD 22 [facility], [address] [place] [address] 04/30/2025 10:30 AM EDT Office Visit [facility] [address] [place] [address] Fredi Elaine DO 22 [place] [address] 07/22/2025 9:40 AM EDT Office Visit [facility] [address] Floor, [address] [place] [address] Asif Araiza MD, MS 22 [facility], [address] [address] Scheduled Procedures Name Priority Associated Diagnoses Date/Ti [...] as of this encounter Care Teams Information Assurance Manager Relationship Specialty Start Date End Date Ja Holley MD [address] [place] [address], [address] [place] [address] PCP - General Internal Medicine 07/23/20 Emile Blake MD [address] [place] [address] Gastroenterology 10/31/18 Frank Mak MD [address] [place] [address], [address] [place] [address] [email or web address] Physical Medicine and Rehabilitation 11/14/20 [place] [address] Psychiatry 02/01/21 10/07/22 Rosalia Vargas RN 30 [place] [address] [facility] Hardwood Floor Layer 02/12/21 03/10/21 Jamari Ellison DO [address] [place] [address] Orthopedics & Sports Medicine, [place] [address] Orthopedic Surgery 07/24/21 Fredi Unger MD [address] [place] [address] Ophthalmology 07/24/21 Elroy Calderon MD [address] [place] [address], [address] [place] [address] Urology 10/27/21 Ja Holley MD [address] [place] [address], [address] [place] [address] Insurance Assigned Provider 05/28/23 Bartolo Morgan MD [address] [place] [address] Psychiatry 10/08/22 Molly Spring RN [address] [place] [address] [email or web address] PHCM Hardwood Floor Layer 02/07/23 10/07/24 Criss Cosme [address] [place] [address] [email or web address] PHC Community Health Worker 03/29/23 03/29/23 Maximino Dorado MD, PhD [address] [place] [address] [email or web address] Radiation Oncology 05/03/23 Maximino Dorado MD, PhD [address] [place] [address] [email or web address] Radiation Oncology 06/01/23 06/25/23 Lincoln Thomson MD [address] [place] [address], [address] [place] [address] [email or web address] Physical Medicine and Rehabilitation 06/26/23 Dhaval Slater MD [address] [place] [address] Dr CALIX [address] [place] [address] Neurosurgery 07/07/23 documented as of this encounter Additional Source Comments The information contained in this document represents components of the legal health record. It is not the complete legal health record.[facility]
--- OUTSIDE RECORDS SUMMARY | 2024-12-13 06:27 | XMS_ITS | Encounter Summary ---
Author Organization [facility] Address [address] [place] [address] Phone Care Team Providers Care Rotary Driller Prospecting Name Role Phone Emile Blake MD Unavailable [phone] Ja Holley MD Primary Care Provider + [phone] Frank Mak MD Unavailable [phone] Jamari Ellison DO Unavailable [phone] Fredi Unger MD Unavailable [phone] Elroy Calderon MD Unavailable [phone] Ja Holley MD Unavailable [phone] Bartolo Morgan MD Unavailable [phone] Molly Spring RN Unavailable [email or web address] Maximino Dorado MD, PhD Unavailable [phone] Lincoln Thomson MD Unavailable [phone] Dhaval Slater MD Unavailable Encounter Details Date Type Department Care Team (Late st Contact Info) Description 05/07/2024 Procedure Pass [facility], Ct Scan - [address] [id number] Social History Tobacco Use Types Packs/Day Years [...] 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 Not on file Not on file Not on file documented as of this encounter Plan of Treatment Upcoming Encounters Date Type Department Care Team (Late st Contact Info) Description 12/28/2024 1:00 PM EST Appointment Department of Radiation Oncology [address] [place] [address] Susy Murphy PA-C [address] [place] [address] [place], [place] [address]am [place] [address] [email or web address] 02/19/2025 3:00 PM EST Office Visit [address] [address] Ja Holley MD [address] [place] [address], [address] [place] [address] 04/30/2025 10:30 AM EDT Office Visit [facility] [address] [place] [address] Fredi Elaine DO [address] [place] [address] 07/22/2025 9:40 AM EDT Office Visit [facility] [address] [place] [address] 3rd Floor, [address] [place] [address] Asif Araiza MD, MS [address] [place] [address], [address] [place] [address] Scheduled Procedures Name Priority Associated Diagnoses Date/Ti [...] documented as of this encounter Care Teams Rotary Driller Prospecting Relationship Specialty Start Date End Date Ja Holley MD [address] [place] [address], [address] [place] [address] PCP - General Internal Medicine 07/23/20 Emile Blake MD [address] [place] [address] Gastroenterology 10/31/18 Frank Mak MD [address] [place] [address], [address] [place] [address] [email or web address] Physical Medicine and Rehabilitation 11/14/20 Jamari Ellison DO [address] [place] [address] Orthopedics & Sports Medicine, [place] [address] Orthopedic Surgery 07/24/21 Fredi Unger MD [address] [place] [address] Ophthalmology 07/24/21 Elroy Calderon MD [facility], [address] [place] [address] Urology 10/27/21 aJ Holley MD 22 [facility], [address] [place] [address] [email or web address] Insurance Assigned Provider 05/28/23 Bartolo Morgan MD [address] [place] [address] Psychiatry 10/08/22 Molly Spring RN [address] [place] [address] [email or web address] 02/07/23 10/07/24 Maximino Dorado MD, PhD [address] [place] [address] [email or web address] Radiation Oncology 05/03/23 Lincoln Thomson MD [address] [place] [address], 2nd [place] [address] [email or web address] Physical Medicine and Rehabilitation 06/26/23 Dhaval Slater MD [address] [place] [address] Dr CALIX [address] [place] [address] Neurosurgery 07/07/23 documented as of this encounter Additional Source Comments The information contained in this document represents components of the legal health record. It is not the complete legal health record.[facility]
--- OUTSIDE RECORDS SUMMARY | 2024-12-13 06:27 | XMS_ITS | Encounter Summary ---
Author Organization [facility] Address [address] [facility] [address] [place] [address] Phone Care Team Providers Care Factory Laborer Name Role Phone Emile Blake MD Unavailable [phone] Ja Holley MD Primary Care Provider + [phone] Frank Mak MD Unavailable Jamari Ellison DO Unavailable [phone] Fredi Unger MD Unavailable [phone] Elroy Calderon MD Unavailable [phone] Ja Holley MD Unavailable [phone] Bartolo Morgan MD Unavailable Molly Spring RN Unavailable [email or web address] Maximino Dorado MD, PhD Unavailable [phone] Lincoln Thomson MD Unavailable [phone] Dhaval Slater MD Unavailable Reason for Referral * Outpatient Procedure - Closed Specialty Diagnoses / Procedures Referred By Glory pablo Referred To Contact Radiology Diagnoses Hypertension, unspecified type Procedures US Renal Artery/ Veins Duplex Nathan Bacon MD [address] [facility] [address] [place] [address] Phone: tel: fax: [email or web address] Referral ID Status Reason Start Date Expiration Date Visits Re quested Visits Authorized [id number] Closed 03/09/2024 03/09/2025 1 1 Encounter Details Date Type Department Care Team (Latest Contact Info) Description 03/09/2024 Transcribe Orders Virtual Department 30 [place] [address] Nathan Bacon MD [address] [address] [email or web address] Hypertension, unspecified type (Primary Dx) Social History [...] 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 02/19/2025 3:00 PM EST Office Visit [facility] [address] [place] [address] Ja Holley MD [address] [facility], [address] [place] [address] [email or web address] 04/30/2025 10:30 AM EDT Office Visit [facility] [address] [place] [address] Fredi Elaine DO 22 [place] [address] [email or web address] 07/22/2025 9:40 AM EDT Office Visit [facility] [address] Floor, [address] [place] [address] Asif Araiza MD, MS [address] [facility], [address] [place] [address] [email or web address] Scheduled Procedures Name [...] reflect intrinsic renalparenchymal disease. Nathan Bacon MD [facility] US ABDOMEN Final Result documented in this encounter Visit Diagnoses Diagnosis Hypertension, unspecified type- Primary Hypertension, unspecified type documented in this encounter Additional Health Concerns Assessment Noted Time PHQ-9 Depression Total Score: 23 024 3:21 PM EDT PHQ-2 Depression Total Score: 09/20/19 24 3:21 PM EDT documented as of this encounter Care Teams Factory Laborer Relationship Specialty Start Date End Date Ja Holley MD [address] [place] [address], [address] [place] [address] PCP - General Internal Medicine 07/23/20 Emile Blake MD [address] [place] [address] Gastroenterology 10/31/18 Frank Mak MD [address] [place] [address], [address] [place] [address] [email or web address] Physical Medicine and Rehabilitation 11/14/20 Jamari Ellison DO [address] [place] [address] Orthopedics & Sports Medicine, [place] [address] Orthopedic Surgery 07/24/21 Fredi Unger MD [address] [place] [address] Ophthalmology 07/24/21 Elroy Calderon MD [address] [place] [address] Urology 10/27/21 Ja Holley MD [address] [place] [address], [address] [place] [address] [email or web address] Insurance Assigned Provider 05/28/23 Bartolo Morgan MD [address] [place] [address] Psychiatry 10/08/22 Molly Spring RN [address] [place] [address] [email or web address] 02/07/23 10/07/24 Maximino Dorado MD, PhD [address] [place] [address] [email or web address] Radiation Oncology 05/03/23 Lincoln Thomson MD [address] [place] [address], 2nd [place] [address] [email or web address] Physical Medicine and Rehabilitation 06/26/23 Dhaval Slater MD [address] [place] [address] Dr CALIX [address] [place] [address] Neurosurgery 07/07/23 documented as of this encounter Additional Source Comments The information contained in this document represents components of the legal health record. It is not the complete legal health record.[facility]
--- OUTSIDE RECORDS SUMMARY | 2024-12-13 06:27 | XMS_ITS | Encounter Summary ---
Author Organization [facility] Address [address] [place] [address] Phone Care Team Providers Care Fiberglass Roller Name Role Phone Kellee Gomez Allan PRICE Primary Care Provider [phone] Leonel Alegria MD Primary Care Provider Emile Blake MD Unavailable [phone] Andrei Coon DO Primary Care Provider [phone] Lupis Copeland MD Primary Care Provider Gordon Moralez MD Primary Care Provider + [phone] Ja Holley MD Primary Care Provider +[phone] Frank Mak MD Unavailable + [phone] Alfonzo Perkins MD Unavailable [phone] Rosalia Vargas RN Unavailable [phone] Jamari Ellison DO Unavailable +[phone] Fredi Unger MD Unavailable +[phone] Elroy Calderon MD Unavailable [phone] Ja Holley MD Unavailable +[phone] Bartolo Morgan MD Unavailable +[phone] Molly Spring RN Unavailable [email or web address] Criss Cosme Unavailable +[phone] Maximino Dorado MD, PhD Unavailable +[phone] Maximino Dorado MD, PhD Unavailable [phone] Lincoln Thomson MD Unavailable Dhaval Slater MD Unavailable Encounter Details Date Type Department Care Team (Late Contact Info) Description 05/19/2017 Ancillary Orders Virtual Department [address] [place] [address] Katty Love PA-C [address] John[address] [place] [address] Abdominal bloating; Nausea; Gastroesophageal reflux disease, esophagitis [...] PM EST Appointment Department of Radiation Oncology [address] [place] [address] Susy Murphy PA-C [address] [place], [place] [address]am [place] [address] [email or web address] 02/19/2025 3:00 PM EST Office Visit [facility] [address] [place] [address] Ja Holley MD 22 [facility], [address] [place] [address] 04/30/2025 10:30 AM EDT Office Visit [facility] [address] [place] [address] Fredi Elaine DO 22 [place] [address] 07/22/2025 9:40 AM EDT Office Visit [facility] [address]rd Floor, [address] [place] [address] Asif Araiza MD, MS 22 [facility], [address] [place] [address] [phone] [email or web address] Scheduled Procedures Name Priority Associated Diagnoses Date/Ti [...] documented as of this encounter Care Teams Fiberglass Roller Relationship Specialty Start Date End Date Kellee Gomez FNP [address] [place] [address] PCP - General Family Medicine 01/19/17 05/19/17 [place] [address] [email or web address] PCP - General Internal Medicine 05/20/17 01/07/19 Andrei Coon DO [address] [place] [address] [email or web address] PCP - General Family Medicine 01/08/19 01/03/20 Lupis Copeland MD [address] [place] [address] [email or web address] PCP - General Family Medicine 01/04/20 06/09/20 Gordon Moralez MD [address] [place] [address] [phone] Saji [email or web address] PCP - General 06/10/20 07/22/20 Ja Holley MD [address] [place] [address], [address] [place] [address] [email or web address] PCP - General Internal Medicine 07/23/20 Emile Blake MD [address] [place] [address] [email or web address] Gastroenterology 10/31/18 Frank Mak MD [address] [place] [address], [address] [place] [address] [email or web address] Physical Medicine and Rehabilitation 11/14/20 [place] [address] Psychiatry 02/01/21 10/07/22 Rosalia Vargas RN 30 [place] [address] [email or web address] PHC Bridge Painter Helper 02/12/21 03/10/21 Jamari Ellison DO [address] [place] [address] [facility] [place] [address] Orthopedic Surgery 07/24/21 Fredi Unger MD [address] [place] [address] Ophthalmology 07/24/21 Elroy Calderon MD [address] [place] [address], [address] [place] [address] [email or web address] Urology 10/27/21 Ja Holley MD [address] [place] [address] [address] [place] [address] [email or web address] Insurance Assigned Provider 05/28/23 Bartolo Morgan MD [address] [place] [address] Psychiatry 10/08/22 Molly Spring RN [address] [place] [address] [email or web address] PHC Bridge Painter Helper 02/07/23 10/07/24 Criss Cosme 10 [place] [address] [email or web address] [facility] Community Health Worker 03/29/23 03/29/23 Maximino Dorado MD, PhD [address] [place] [address] [email or web address] Radiation Oncology 05/03/23 Maximino Dorado MD, PhD [address] [place] [address] [email or web address] Radiation Oncology 06/01/23 06/25/23 Lincoln Thomson MD [address] [place] [address], [address] [place] [address] [email or web address] Physical Medicine and Rehabilitation 06/26/23 Dhaval Slater MD [address] [place] [address] [place] [address] Neurosurgery 07/07/23 documented as of this encounter Additional Source Comments The information contained in this document represents components of the legal health record. It is not the complete legal health record.[facility]
--- OUTSIDE RECORDS SUMMARY | 2024-12-13 06:27 | XMS_ITS | Encounter Summary ---
Author Organization [facility] Address [address] [place] [address] Phone Care Team Providers Care Fire Extinguisher Technician Name Role Phone Emile Blake MD Unavailable [phone] Ja Holley MD Primary Care Provider [phone] Frank Mak MD Unavailable Alfonzo Perkins MD Unavailable Jamari Ellison DO Unavailable [phone] Fredi Unger MD Unavailable Elroy Calderon MD Unavailable [phone] Ja Holley MD Unavailable +[phone] Bartolo Morgan MD Unavailable [phone] Molly Spring RN Unavailable [email or web address] Criss Cosme Unavailable [phone] Maximino Dorado MD, PhD Unavailable +[phone] Maximino Dorado MD, PhD Unavailable [phone] Lincoln Thomson MD Unavailable [phone] Dhaval Slater MD Unavailable Encounter Details Date Type Department Care Team (Late st Contact Info) Description 08/21/2022 Procedure Pass [facility], Ct Scan - [address] [address] Social History Tobacco Use Types Packs/Day Years [...] 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 Not on file Not on file documented as of this encounter Functional Status * Calculated C-SSRS Risk Score (Lifetime/Recent) Answer Date of Assessment Author No Risk Indicated 08/21/2022 10:06 AM EDT aLura Underwood RN * [place] Suicide Severity Rating Scale (Screener/Recent Self-Report) Question [...] PM EST Appointment Department of Radiation Oncology [address] [place] [address] Susy Murphy PA-C [address] [place], [place] [address]am [place] [address] [email or web address] 02/19/2025 3:00 PM EST Office Visit [facility] [address] [place] [address] [place] [address] Ja Holley MD [address] [place] [address], [address] [place] [address] 04/30/2025 10:30 AM EDT Office Visit [facility] [address] [place] [address] [place] [address] Fredi Elaine DO [address] [place] [address] 07/22/2025 9:40 AM EDT Office Visit [facility] [address] [place] [address] 3rd Floor, [address] [place] [address] Asif Araiza MD, MS 22 [facility], [address] [place] [address] [email or web address] Scheduled Procedures Name Priority Associated Diagnoses Date/Ti nh COLONOSCOPY Gastroesophageal reflux disease with esophagitis without hemorrhage ESOPHAGOGASTRODUODENOSCOPY Gastroesophageal reflux disease with esophagitis without hemorrhage documented as of this encounter Visit Diagnoses Not on filedocumented in this encounter Additional Health Concerns Assessment Noted Time PHQ-9 Depression Total Score: 12 023 11:21 AM EDT PHQ-2 Depression Total Score: 3 07/14/19 23 11:21 AM EDT documented as of this encounter Care Teams Fire Extinguisher Technician Relationship Specialty Start Date End Date Ja Holley MD [address] [place] [address], [address] [place] [address] PCP - General Internal Medicine 07/23/20 Emile Blake MD [address] [place] [address] Gastroenterology 10/31/18 Frank Mak MD [address] [place] [address], [address] [place] [address] [email or web address] Physical Medicine and Rehabilitation 11/14/20 [place] [address] Psychiatry 02/01/21 10/07/22 Jamari Ellison DO [address] [place] [address] [facility] [address] [email or web address] Orthopedic Surgery 07/24/21 Fredi Unger MD [address] [place] [address] 2 [place] [address] Ophthalmology 07/24/21 Elroy Calderon MD [address] [place] [address], [address] [place] [address] [email or web address] Urology 10/27/21 Ja Holley MD [address] [place] [address], [address] [place] [address] [email or web address] Insurance Assigned Provider 05/28/23 Bartolo Morgan MD [address] [place] [address] Psychiatry 10/08/22 Molly Spring, KATEY [address] [place] [address] [email or web address] PHCM Pressure Vessel Inspector 02/07/23 10/07/24 Criss Cosme 10 [place] [address] [email or web address] PHCM Community Health Worker 03/29/23 03/29/23 Maximino Dorado MD, PhD [address] [place] [address] [email or web address] Radiation Oncology 05/03/23 Maximino Dorado MD, PhD [address] [place] [address] [email or web address] Radiation Oncology 06/01/23 06/25/23 Lincoln Thomson MD [address] [place] [address], 2nd [place] [address] [email or web address] Physical Medicine and Rehabilitation 06/26/23 Dhaval Slater MD [address] [place] [address] Dr CALIX [address] [place] [address] Neurosurgery 07/07/23 documented as of this encounter Additional Source Comments The information contained in this document represents components of the legal health record. It is not the complete legal health record.[facility]
--- OUTSIDE RECORDS SUMMARY | 2024-12-13 06:27 | XMS_ITS | Encounter Summary ---
Author Organization [facility] Address [address] [place] [address] Phone Care Team Providers Care Doctor Assistant Name Role Phone Emile Blake MD Unavailable Ja Holley MD Primary Care Provider [phone] Frank Mak MD Unavailable Alfonzo Perkins MD Unavailable Rosalia Vargas RN Unavailable [phone] Jamari Ellison DO Unavailable [phone] Fredi Unger MD Unavailable Elroy Calderon MD Unavailable [phone] Ja Holley MD Unavailable [phone] Bartolo Morgan MD Unavailable [phone] Molly Spring RN Unavailable [email or web address] Criss Cosme Unavailable [phone] Maximino Dorado MD, PhD Unavailable [phone] Maximino Dorado MD, PhD Unavailable [phone] Lincoln Thomson MD Unavailable [phone] Dhaval Slater MD Unavailable Encounter Details Date Type Department Care Team (Latest Contact Info) Description 10/21/2020 Prep for Surgery [facility] General Surgical Care [address] [place] [address] Monique Cuenca MD 15 [facility], 2nd [place] [address] [email or web address] Non-recurrent unilateral inguinal hernia without obstruction [...] high school, GED, job training, learning the Barb[place] language, technical skills, or developing parenting skills)? 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 Not on file Not on file documented as of this encounter Plan of Treatment Upcoming Encounters Date Type Department Care Team (Late st Contact Info) Description 12/28/2024 1:00 PM EST Appointment Department of Radiation Oncology [address] [place] [address] Susy Murphy PA-C [address] [place], [place] [address]am [place] [address] [email or web address] 02/19/2025 3:00 PM EST Office Visit [facility] [address] [place] [address] Ja Holley MD [address] [place] [address], [address] [place] [address] 04/30/2025 10:30 AM EDT Office Visit [facility] [address] [place] [address] [place] [address] Fredi Elaine DO [address] [place] [address] 07/22/2025 9:40 AM EDT Office Visit [facility] [address] [place] [address] 3rd Floor, [address] [place] [address] Asif Araiza MD, MS [address] [place] [address], [address] [place] [address] Scheduled Procedures Name Priority Associated Diagnoses Date/Ti la COLONOSCOPY Gastroesophageal reflux disease with esophagitis without [...] Assessment Noted Time PHQ-9 Depression Total Score: 021 8:56 AM EDT PHQ-2 Depression Total Score: 07/24/19 21 8:56 AM EDT documented as of this encounter Care Teams Doctor Assistant Relationship Specialty Start Date End Date Ja Holley MD [address] [place] [address], [address] [place] [address] PCP - General Internal Medicine 07/23/20 Emile Blake MD [address] [place] [address] Gastroenterology 10/31/18 Frank Mak MD [address] [place] [address], [address] [place] [address] [email or web address] Physical Medicine and Rehabilitation 11/14/20 [place] [address] Psychiatry 02/01/21 10/07/22 Rosalia Vargas RN 30 [place] [address] PHCM Batch Mixing Truck Driver 02/12/21 03/10/21 Jamari Ellison DO [address] [place] [address] [facility], [place] [address] Orthopedic Surgery 07/24/21 Fredi Unger MD [address] [place] [address] 2 [place] [address] Ophthalmology 07/24/21 Elroy Calderon MD [address] [place] [address], [address] [place] [address] Urology 10/27/21 Ja Holley MD [address] [place] [address], [address] [place] [address] Insurance Assigned Provider 05/28/23 Bartolo Morgan MD [address] [place] [address] Psychiatry 10/08/22 Molly Spring RN [address] [place] [address] [email or web address] Batch Mixing Truck Driver 02/07/23 10/07/24 Criss Cosme 10 [place] [address] [email or web address] [facility] Community Health Worker 03/29/23 03/29/23 Maximino Dorado MD, PhD [address] [place] [address] [email or web address] Radiation Oncology 05/03/23 Maximino Dorado MD, PhD [address] [place] [address] [email or web address] Radiation Oncology 06/01/23 06/25/23 Lincoln Thomson MD [address] [place] [address], 2nd [place] [address] Physical Medicine and Rehabilitation 06/26/23 Dhaval Slater MD [address] [place] [address] [place] [address] Neurosurgery 07/07/23 documented as of this encounter Additional Source Comments The information contained in this document represents components of the legal health record. It is not the complete legal health record.[facility]
--- OUTSIDE RECORDS SUMMARY | 2024-12-13 06:27 | XMS_ITS | Encounter Summary ---
Author Organization [facility] Address [address] [place] [address] Phone Care Team Providers Care Trial Court Justice Name Role Phone Kellee Gomez Allan PRICE Primary Care Provider [phone] Leonel Alegria MD Primary Care Provider [phone] Emile Blake MD Unavailable [phone] Andrei Coon DO Primary Care Provider [phone] Lupis Copeland MD Primary Care Provider Gordon Moralez MD Primary Care Provider + [phone] Ja Holley MD Primary Care Provider [phone] Frank Mak MD Unavailable [phone] Alfonzo Perkins MD Unavailable [phone] Rosalia Vargas RN Unavailable [phone] Jamari Ellison DO Unavailable +[phone] Fredi Unger MD Unavailable [phone] Elroy Calderon MD Unavailable [phone] Ja Holley MD Unavailable +[phone] Bartolo Morgan MD Unavailable [phone] Molly Spring RN Unavailable [email or web address] Criss Cosme Unavailable [phone] Maximino Dorado MD, PhD Unavailable +[phone] Maximino Dorado MD, PhD Unavailable [phone] Lincoln Thomson MD Unavailable Dhaval Slater MD Unavailable Encounter Details Date Type Department Care Team (Late st Contact Info) Description 03/02/2017 Procedure Pass [facility], Ct Scan - [address] [address] Social History Tobacco Use Types Packs/Day Years [...] EST Appointment Department of Radiation Oncology [address] [place] [address] Susy Murphy PA-C [address] [place] [address] [place] [address] [email or web address] 02/19/2025 3:00 PM EST Office Visit [address] [address] Ja Holley MD [address] [place] [address], [address] [place] [address] 04/30/2025 10:30 AM EDT Office Visit [facility] [address] [place] [address] Fredi Elaine DO [address] [place] [address] [email or web address] 07/22/2025 9:40 AM EDT Office Visit [facility] 3rd Floor, [address] [place] [address] Asif Araiza MD, MS 22 [facility], [address] [place] [address] [email or web address] Scheduled Procedures Name Priority Associated Diagnoses Date/Ti [...] documented as of this encounter Care Teams Trial Court Justice Relationship Specialty Start Date End Date Kellee Gomez FNP [address] [place] [address] [email or web address] PCP - General Family Medicine 01/19/17 05/19/17 [place] [address] [email or web address] PCP - General Internal Medicine 05/20/17 01/07/19 Andrei Coon DO [address] [place] [address] [email or web address] PCP - General Family Medicine 01/08/19 01/03/20 Lupis Copeland MD [address] [place] [address] [email or web address] PCP - General Family Medicine 01/04/20 06/09/20 Gordon Moralez MD [address] [place] [address] Saji @[email or web address] g PCP - General 06/10/20 07/22/20 Ja Holley MD [address] [facility], [address] [place] [address] PCP - General Internal Medicine 07/23/20 Emile Blake MD [address] [address] Gastroenterology 10/31/18 Frank Mak MD [address] [place] [address], [address] [place] [address] [email or web address] Physical Medicine and Rehabilitation 11/14/20 [place] [address] Psychiatry 02/01/21 10/07/22 Rosalia Vargas, KATEY [address] [place] [address] PHC Ballistic Expert 02/12/21 03/10/21 Jamari Ellison DO [address] [place] [address] Orthopedics & Sports Medicine, [place] [address] [email or web address] Orthopedic Surgery 07/24/21 Fredi Unger MD [address] [place] [address] Ophthalmology 07/24/21 Elroy Calderon MD [address] [place] [address], [address] [place] [address] [email or web address] Urology 10/27/21 Ja Holley MD [address] [place] [address], [address] [place] [address] [email or web address] Insurance Assigned Provider 05/28/23 Bartolo Morgan MD [address] [place] [address] Psychiatry 10/08/22 Molly Spring, KATEY [address] [place] [address] [email or web address] Ballistic Expert 02/07/23 10/07/24 Criss Cosme 10 [place] [address] [email or web address] [facility] Community Health Worker 03/29/23 03/29/23 Maximino Dorado MD, PhD [address] [place] [address] [email or web address] Radiation Oncology 05/03/23 Maximino Dorado MD, PhD [address] [place] [address] [email or web address] Radiation Oncology 06/01/23 06/25/23 Lincoln Thomson MD 22 [facility], 2nd [place] [address] [email or web address] Physical Medicine and Rehabilitation 06/26/23 Dhaval Slater MD [address] [place] [address] [place] [address] Neurosurgery 07/07/23 documented as of this encounter Additional Source Comments The information contained in this document represents components of the legal health record. It is not the complete legal health record.[facility]
--- OUTSIDE RECORDS SUMMARY | 2024-12-13 06:27 | XMS_ITS | Encounter Summary ---
Author Organization [facility] Address [address] [place] [address] Phone Care Team Providers Care Rubber Tile Floor Layer Name Role Phone Kellee Gomez Allan PRICE Primary Care Provider [phone] Leonel Alegria MD Primary Care Provider Emile Blake MD Unavailable [phone] Andrei Coon DO Primary Care Provider [phone] Lupis Copeland MD Primary Care Provider Gordon Moralez MD Primary Care Provider + [phone] Ja Holley MD Primary Care Provider [phone] Frank Mak MD Unavailable [phone] Alfonzo Perkins MD Unavailable [phone] Rosalia Vargas RN Unavailable [phone] Jamari Ellison DO Unavailable +[phone] Fredi Unger MD Unavailable +[phone] Elroy Calderon MD Unavailable [phone] Ja Holley MD Unavailable +[phone] Bartolo Morgan MD Unavailable +[phone] Molly Spring RN Unavailable [email or web address] Criss Cosme Unavailable +[phone] Maximino Dorado MD, PhD Unavailable +[phone] Maximino Dorado MD, PhD Unavailable +[phone] Lincoln Thomson MD Unavailable +[phone] Dhaval Slater MD Unavailable Encounter Details Date Type Department Care Team (Late Contact Info) Description 01/20/2017 Procedure Pass [facility] Endoscopy Admitting Dept Virtual Department [address] [place] [address] Social History Tobacco Use Types Packs/Day Years [...] EST Appointment Department of Radiation Oncology [address] [place] [address] Susy Murphy PA-C [address] [place] [address] [place] [address] [email or web address] 02/19/2025 3:00 PM EST Office Visit [facility] Medicine [address] [place] [address] Ja Holley MD [address] [place] [address], [address] [place] [address] 04/30/2025 10:30 AM EDT Office Visit [facility] [address] [place] [address] Fredi Elaine DO [address] [place] [address] [email or web address] 07/22/2025 9:40 AM EDT Office Visit [facility] [address] [facility] 3rd Floor, [address] [place] [address] Asif Araiza MD, MS [address] [facility], [address] [place] [address] [email or web address] Scheduled Procedures Name Priority Associated Diagnoses Date/Ti [...] documented as of this encounter Care Teams Rubber Tile Floor Layer Relationship Specialty Start Date End Date Kellee Gomez FNP 30 [place] [address] [email or web address] PCP - General Family Medicine 01/19/17 05/19/17 [place] [address] [email or web address] PCP - General Internal Medicine 05/20/17 01/07/19 Andrei Coon DO [address] [place] [address] [email or web address] PCP - General Family Medicine 01/08/19 01/03/20 Lupis Copeland MD [address] [place] [address] [email or web address] PCP - General Family Medicine 01/04/20 06/09/20 Gordon Moralez MD [address] [facility] 212 [place] [address] Saji [email or web address] g PCP - General 06/10/20 07/22/20 Ja Holley MD [address] [facility], [address] [place] [address] PCP - General Internal Medicine 07/23/20 Emile Blake MD [address] [address] Gastroenterology 10/31/18 Frank Mak MD [address] [place] [address], [address] [place] [address] [email or web address] Physical Medicine and Rehabilitation 11/14/20 [place] [address] Psychiatry 02/01/21 10/07/22 Rosalia Vargas, KATEY 30 [place] [address] [facility] Operations Leader 02/12/21 03/10/21 Jamari Ellison DO [address] [place] [address] Orthopedics & Sports Medicine, [place] [address] [email or web address] Orthopedic Surgery 07/24/21 Fredi Unger MD [address] [place] [address] 2 [place] [address] Ophthalmology 07/24/21 Elroy Calderon MD [address] [place] [address], [address] [place] [address] [email or web address] Urology 10/27/21 Ja Holley MD [address] [place] [address], [address] [place] [address] [email or web address] Insurance Assigned Provider 05/28/23 Bartolo Morgan MD [address] [place] [address] Psychiatry 10/08/22 Molly Spring, KATEY [address] [place] [address] [email or web address] Leader 02/07/23 10/07/24 Criss Cosme 10 [place] [address] [email or web address] martín PHC Community Health Worker 03/29/23 03/29/23 Maximino Dorado MD, PhD [address] [place] [address] [email or web address] Radiation Oncology 05/03/23 Maximino Dorado MD, PhD [address] [place] [address] [email or web address] Radiation Oncology 06/01/23 06/25/23 Lincoln Thomson MD [address] [place] [address], 2nd [place] [address] [email or web address] Physical Medicine and Rehabilitation 06/26/23 Dhaval Slater MD [address] [place] [address] [place] [address] Neurosurgery 07/07/23 documented as of this encounter Additional Source Comments The information contained in this document represents components of the legal health record. It is not the complete legal health record.[facility]
--- OUTSIDE RECORDS SUMMARY | 2024-12-13 06:27 | XMS_ITS | Encounter Summary ---
Author Organization [facility] Address [address] [place] [address] Phone Care Team Providers Care Skill Training Program Coordinator Name Role Phone Emile Blake MD Unavailable [phone] Ja Holley MD Primary Care Provider + [phone] Frank Mak MD Unavailable [phone] Jamari Ellison DO Unavailable [phone] Fredi Unger MD Unavailable [phone] Elroy Calderon MD Unavailable [phone] Ja Holley MD Unavailable [phone] Bartolo Morgan MD Unavailable [phone] Molly Spring RN Unavailable [email or web address] Maximino Dorado MD, PhD Unavailable [phone] Maximino Dorado MD, PhD Unavailable +[phone] Lincoln Thomson MD Unavailable [phone] Dhaval Slater MD Unavailable Encounter Details Date Type Department Care Team (Late st Contact Info) Description 06/13/2023 Procedure Pass [address] [place] [address] Social History Tobacco Use Types Packs/Day Years [...] 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 02/19/2025 3:00 PM EST Office Visit [address] [place] [address] Ja Holley MD [address] [place] [address], [address] [place] [address] 04/30/2025 10:30 AM EDT Office Visit [facility] [address] [place] [address] [place] [address] Fredi Elaine DO [address] [place] [address] 07/22/2025 9:40 AM EDT Office Visit [facility] [address] [place] [address] 3rd Floor, [address] [place] [address] Asif Araiza MD, MS [address] [place] [address], [address] [place] [address] Scheduled Procedures Name Priority Associated Diagnoses Date/Ti nd COLONOSCOPY Gastroesophageal reflux disease with esophagitis without hemorrhage ESOPHAGOGASTRODUODENOSCOPY Gastroesophageal reflux disease with esophagitis without hemorrhage documented as of this encounter Visit Diagnoses Not on filedocumented in this encounter Additional Health Concerns Assessment Noted Time PHQ-9 Depression Total Score: 24 024 12:44 PM EDT PHQ-2 Depression Total Score: 6 06/01/19 24 12:44 PM EDT documented as of this encounter Care Teams Skill Training Program Coordinator Relationship Specialty Start Date End Date Ja Holley MD [address] [place] [address], [address] [place] [address] PCP - General Internal Medicine 07/23/20 Emile Blake MD [address] [place] [address] Gastroenterology 10/31/18 Frank Mak MD [address] [place] [address], [address] [place] [address] [email or web address] Physical Medicine and Rehabilitation 11/14/20 Jamari Ellison DO [address] [place] [address] Orthopedics & Sports Medicine, [place] [address] Orthopedic Surgery 07/24/21 Fredi Unger MD [address] [place] [address] Ophthalmology 07/24/21 Elroy Calderon MD [address] [place] [address], [address] [address] Urology 10/27/21 Ja Holley MD [address] [place] [address], [address] [place] [address] [email or web address] Insurance Assigned Provider 05/28/23 Bartolo Morgan MD [address] [place] [address] Psychiatry 10/08/22 Molly Spring RN [address] [place] [address] [email or web address] 02/07/23 10/07/24 Maximino Dorado MD, PhD [address] [place] [address] [email or web address] Radiation Oncology 05/03/23 Maximino Dorado MD, PhD [address] [place] [address] [email or web address] Radiation Oncology 06/01/23 06/25/23 Lincoln Thomson MD 22 [facility], 2nd [place] [address] [email or web address] Physical Medicine and Rehabilitation 06/26/23 Dhaval Slater MD [address] [place] [address] Dr CALIX [address] [place] [address] Neurosurgery 07/07/23 documented as of this encounter Additional Source Comments The information contained in this document represents components of the legal health record. It is not the complete legal health record.[facility]
--- OUTSIDE RECORDS SUMMARY | 2024-12-13 06:27 | XMS_ITS | Encounter Summary ---
Author Organization [facility] Address [address] [place] [address] Phone Care Team Providers Care Library Clerical Assistant Name Role Phone Kellee Gomez Allan PRICE Primary Care Provider [phone] Leonel Alegria MD Primary Care Provider [phone] Emile Blake MD Unavailable [phone] Andrei Coon DO Primary Care Provider [phone] Lupis Copeland MD Primary Care Provider Gordon Moralez MD Primary Care Provider + [phone] Ja Holley MD Primary Care Provider [phone] Frank Mak MD Unavailable [phone] Alfonzo Perkins MD Unavailable [phone] Rosalia Vargas RN Unavailable [phone] Jamari Ellison DO Unavailable [phone] Fredi Unger MD Unavailable [phone] Elroy Calderon MD Unavailable [phone] Ja Holley MD Unavailable [phone] Bartolo Morgan MD Unavailable [phone] Molly Spring RN Unavailable [email or web address] Criss Cosme Unavailable [phone] Maximino Dorado MD, PhD Unavailable [phone] Maximino Dorado MD, PhD Unavailable [phone] Lincoln Thomson MD Unavailable Dhaval Slater MD Unavailable Encounter Details Date Type Department Care Team (Latest Contact Info) Description 03/02/2017 Transcribe Orders [facility] Laboratory [address] 2nd [place] [address] Emile Blake MD [address] . [facility] 2 [place] [address] Inguinal pain, unspecified laterality (Primary Dx); Nonspecific [...] PM EST Appointment Department of Radiation Oncology [address] [place] [address] Susy Murphy PA-C [address] [place], [place] [address]am [place] [address] [email or web address] 02/19/2025 3:00 PM EST Office Visit [facility] Medical [address] [place] [address] Ja Holley MD 22 [facility], [address] [place] [address] 04/30/2025 10:30 AM EDT Office Visit [facility] [address] [place] [address] Fredi Elaine DO 22 [place] [address] 07/22/2025 9:40 AM EDT Office Visit [facility] [address]rd Floor, [address] [place] [address] Asif Araiza MD, MS 22 [facility], [address] [place] [address] [email or web address] Scheduled Procedures Name Priority Associated Diagnoses Date/Ti me COLONOSCOPY Gastroesophageal reflux disease with esophagitis without hemorrhage ESOPHAGOGASTRODUODENOSCOPY Gastroesophageal reflux disease with esophagitis without hemorrhage documented as of this encounter Results * Sedimentation rate (ESR) (03/02/2017 10:54 AM EST) ESR 9 0 - 20 mm/h [facility] Blood 03/02/2017 10:5 4 AM EST 03/02/2017 11:04 AM EST us Emile Blake MD LAB BLOOD ORDERABLES Final R esult Performing Organization Address City/[facility]/ZIP Co de Phone Number [address] [address] * Ferritin (03/02/2017 10:54 AM EST) FERRITIN 237 30 - 400 ug/L [facility] Blood 03/02/2017 10:5 4 AM EST 03/02/2017 11:04 AM EST us Emile Blake MD LAB BLOOD ORDERABLES Final R esult Performing Organization Address City/[facility]/ZIP Co de Phone Number [address] [address] * C-Reactive Protein (03/02/2017 10:54 AM EST) C REACTIVE PROTEIN 0.3 0 - 0.5 mg/L [facility] Blood 03/02/2017 10:5 4 AM EST 03/02/2017 11:04 AM EST us Emile Blake MD LAB BLOOD ORDERABLES Final R esult [address] [address] * (ABNORMAL) Comprehensive metabolic panel (03/02/2017 10:54 AM EST) SODIUM 140 133 - 146 mmol/L [facility] POTASSIUM 4.9 3.3 - 5.1 mmol/L [facility] CHLORIDE 100 96 - 108 mmol/L [facility] CO2 28 21 - 35 mmol/L [facility] BUN 21(H) 6 - 19 mg/dL [facility] CREATININE 0.90 0.5 - 1.5 mg/dL [facility] GLUCOSE 115(H) 70 - 99 mg/dL [facility] ALBUMIN 4.7 3.9 - 4.8 g/dL [facility] TOTAL PROTEIN 7.6 6.5 - 8.0 g/dL [facility] CALCIUM 10.0 8.4 - 10.3 mg/dL [facility] ALKALINE PHOSPHATASE 94 39 - 117 U/L [facility] TOTAL BILIRUBIN 0.7 0 - 1.2 mg/dL [facility] AST 29 0 - 37 U/L [facility] ALT 43(H) 0 - 40 U/L [facility] GLOBULIN 2.9 1 - 4.8 g/dL [facility] EGFR >60 >60 mL/min/1.7 3m2 [facility] Comment:Abnormal if <60. If patient is -Monegasque, multiply the result by 1.21. ANION GAP 17 10 - 20 mmol/L [facility] Blood 03/02/2017 10:5 4 AM EST 03/02/2017 11:04 AM EST us Emile Blake MD LAB BLOOD ORDERABLES Final R esult Performing Organization Address City/[facility]/ZIP Co de Phone Number [address] [address] * Tissue transglutaminase IgA (03/02/2017 10:54 AM EST) TTG IGA ANTIBODY <1.2 <4.0 (Negative) U/mL [facility]+ Blood 03/02/2017 10:5 4 AM EST 03/02/2017 11:04 AM EST us Emile Blake MD LAB BLOOD ORDERABLES Final R esult Performing Organization Address [facility] Co de Phone Number [facility] PAT+ [address] [place] [address] * Immunoglobulin A (03/02/2017 10:54 AM EST) IgA 102 70 - 400 mg/dL [facility] Blood 03/02/2017 10:5 4 AM EST 03/02/2017 11:04 AM EST us Emile Blake MD LAB BLOOD ORDERABLES Final R esult Performing Organization Address [facility] Co de Phone Number [address] [address] * Gliadin deamidated antibody, IgG/IgA (03/02/2017 10:54 AM EST) Gliadin Ab, IGA <10.0 <20.0 (Negative) U [facility] MED AND PAT+ GLIADIN AB IGG <10.0 <20.0 (Negative) U [facility] MED AND PAT+ Blood 03/02/2017 10:5 4 AM EST 03/02/2017 11:04 AM EST us Emile Blake MD LAB BLOOD ORDERABLES Final R esult Performing Organization Address City/[facility]/ZIP Co de Phone Number [facility] PAT+ [address] [place] [address] * CBC and differential (03/02/2017 10:54 AM EST) WBC 6.20 3.40 - 11.20 K/uL [facility] RBC 5.33 4.50 - 5.50 M/uL [facility] HGB 15.8 13.0 - 17.0 g/dL [facility] HCT 46.7 40.0 - 51.0 % [facility] PLT 326 130 - 400 K/uL [facility] MCV 87.6 79.0 - 98.0 fL [facility] MCH 29.6 27.0 - 34.8 pg [facility] MCHC 33.8 31.5 - 36.0 g/dL [facility] RDW 13.4 10.8 - 14.6 % [facility] MPV 10.0 9.4 - 12.4 fl [facility] NRBC 0.00 /100 WBCs [facility] ABSOLUTE NRBC 0.00 K/uL [facility] DIFF METHOD Auto [facility] NEUTS 52.8 45.30 - 77.70 % [facility] LYMPHS 33.5 12.30 - 39.70 % [facility] MONOS 8.4 4.10 - 12.80 % [facility] EOS 4.0 0 - 7.2 % [facility] BASOS 1.0 0 - 2.80 % [facility] Granulocytes, immature (%) 0.3 0.0 - 0.9 % [facility] ABSOLUTE NEUTS 3.27 1.40 - 7.70 K/uL [facility] ABSOLUTE LYMPHS 2.08 0.60 - 3.20 K/uL [facility] ABSOLUTE MONOS 0.52 0.11 - 0.59 K/uL [facility] ABSOLUTE EOS 0.25 0.01 - 0.50 K/uL [facility] ABSOLUTE BASOS 0.06 0.00 - 0.08 K/uL [facility] Granulocytes, immature 0.02 0.00 - 0.05 K/uL [facility] Blood 03/02/2017 10:5 4 AM EST 03/02/2017 11:04 AM EST us Emile Blake MD LAB BLOOD ORDERABLES Final R esult Performing Organization Address City/[facility] Co de Phone Number [address] [address] * Smooth Muscle Antibody (03/02/2017 10:54 AM EST) ANTI-SMOOTH MUSCLE AB Negative Negative [facility] Comment: (NOTE) ADDITIONAL INFORMATION This test was developed and its performance characteristics determined by [facility] in a manner consistent with CLIA requirements. This test has not been cleared or approved by the U.S. Food and Drug Administration. Blood 03/02/2017 10:5 4 AM EST 03/02/2017 11:04 AM EST Emile Blake MD LAB BLOOD ORDERABLES Final R esult Performing Organization Address City/[facility]/ZIP Co de Phone Number [facility] AND PAT+ [address] [place] [address] * Antinuclear antibody (RAFA) (03/02/2017 10:54 AM EST) RAFA SCREEN ON HEP 2 Negative Negative [facility] Blood 03/02/2017 10:5 4 AM EST 03/02/2017 11:04 AM EST Emile Blake MD LAB BLOOD ORDERABLES Final R esult Performing Organization Address City/[facility] Co de Phone Number [address] [address] * Anti-Mitochondrial Antibody (AMA) (03/02/2017 10:54 AM EST) MITOCHONDRIAL AB M2 <0.1 <0.1 (Negative) U [facility] AND PAT+ Blood 03/02/2017 10:5 4 AM EST 03/02/2017 11:04 AM EST us Emile Blake MD LAB BLOOD ORDERABLES Final R esult Performing Organization Address City/[facility]/ZIP Co de Phone Number [facility] AND PAT+ [address] [place] [address] * Lkujj-2-ifzsdxnzhla phenotyping (03/02/2017 10:54 AM EST) ALPHA 1 ANTITRYPSIN 112 100 - 190 mg/dL [facility]+ A1A PHENOTYPE MM bands [facility] DPT OF LAB MED AND PAT+ Comment: (NOTE) A single M isoform is detected. In the context of a normal qpxja-0-xfqtcnlaidl concentration, this is consistent with an MM phenotype. Blood 03/02/2017 10:5 4 AM EST 03/02/2017 11:04 AM EST us Emile Blake MD LAB BLOOD ORDERABLES Final R esult Performing Organization Address City/[facility]/ZIP Co de Phone Number [facility] AND PAT+ [address] [place] [address] documented in this encounter Visit Diagnoses Diagnosis [...] documented as of this encounter Care Teams Library Clerical Assistant Relationship Specialty Start Date End Date Kellee Gomez FNP [address] [place] [address] [email or web address] PCP - General Family Medicine 01/19/17 05/19/17 Le[place] [address] [email or web address] PCP - General Internal Medicine 05/20/17 01/07/19 Andrei Coon DO [address] [place] [address] [email or web address] PCP - General Family Medicine 01/08/19 01/03/20 Lupis Copeland MD [address] [place] [address] [email or web address] PCP - General Family Medicine 01/04/20 06/09/20 Gordon Moralez MD [address] [place] [address] Saji [email or web address] PCP - General 06/10/20 07/22/20 Ja Holley MD [address] [place] [address], [address] [place] [address] [email or web address] PCP - General Internal Medicine 07/23/20 Emile Blake MD [address] [place] [address] [email or web address] Gastroenterology 10/31/18 Frank Mak MD [address] [place] [address], [address] [place] [address] [email or web address] Physical Medicine and Rehabilitation 11/14/20 Alfonzo [place] [address] Psychiatry 02/01/21 10/07/22 Rosalia Vargas RN [address] [place] [address] [email or web address] PHCM Application Developer Manager 02/12/21 03/10/21 Jamari Ellison DO [address] [place] [address] Orthopedics & Sports Medicine, [place] [address] Orthopedic Surgery 07/24/21 Fredi Unger MD [address] [place] [address] Ophthalmology 07/24/21 Elroy Calderon MD [address] [place] [address], [address] [place] [address] [email or web address] Urology 10/27/21 Ja Holley MD [address] [place] [address], [address] [place] [address] [email or web address] Insurance Assigned Provider 05/28/23 Bartolo Morgan MD [address] [place] [address] Psychiatry 10/08/22 Molly Spring RN [address] [address] [email or web address] PHC Application Developer Manager 02/07/23 10/07/24 Criss Cosme [address] [place] [address] [email or web address] Community Health Worker 03/29/23 03/29/23 Maximino Dorado MD, PhD [address] [place] [address] [email or web address] Radiation Oncology 05/03/23 Maximino Dorado MD, PhD [address] [place] [address] [email or web address] Radiation Oncology 06/01/23 06/25/23 Lincoln Thomson MD [address] [place] [address], 2nd [place] [address] [email or web address] Physical Medicine and Rehabilitation 06/26/23 Dhaval Slater MD [address] [place] [address] [place] [address] Neurosurgery 07/07/23 documented as of this encounter Additional Source Comments The information contained in this document represents components of the legal health record. It is not the complete legal health record.[facility]
--- OUTSIDE RECORDS SUMMARY | 2024-12-13 06:27 | XMS_ITS | Encounter Summary ---
Author Organization [facility] Address [address] [place] [address] Phone Care Team Providers Care Blown Film Extrusion Operator Name Role Phone Emile Blake MD Unavailable [phone] Ja Holley MD Primary Care Provider + [phone] Frank Mak MD Unavailable [phone] Jamari Ellison DO Unavailable [phone] Fredi Unger MD Unavailable +[phone] Elroy Calderon MD Unavailable [phone] Ja Holley MD Unavailable [phone] Bartolo Morgan MD Unavailable [phone] Molly Spring RN Unavailable [email or web address] Maximino Dorado MD, PhD Unavailable +[phone] Lincoln Thomson MD Unavailable +[phone] Dhaval Slater MD Unavailable Reason for Referral * MRI/CAT Scan - Closed Specialty Diagnoses / Procedures Referred By Glory pablo Referred To Contact Radiology Diagnoses Liver nodule Adrenal nodule Procedures MRI Abdomen Dorita Mcelroy PA [address] [place] [address] Phone: tel: fax: Referral ID Status Reason Start Date Expiration Date Visits Re quested Visits Authorized [id number] Closed 05/29/2024 05/29/2025 1 1 Encounter Details Date Type Department Care Team (Latest Contact Info) Description 05/29/2024 Transcribe Orders Virtual Department [address] [place] [address] Dorita Mcelroy PA [address] [place] [address] Mass of adrenal gland (Primary Dx); Liver [...] 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 Not on file Not on file Not on file documented as of this encounter Plan of Treatment Upcoming Encounters Date Type Department Care Team (Late st Contact Info) Description 12/28/2024 1:00 PM EST Appointment Department of Radiation Oncology [address] [place] [address] Susy Murphy PA-C [address] [place], [place] [address]am [place] [address] [email or web address] 02/19/2025 3:00 PM EST Office Visit See [facility] [address] [place] [address] Ja Holley MD 22 [facility], [address] [place] [address] 04/30/2025 10:30 AM EDT Office Visit [facility] [address] [place] [address] Fredi Elaine DO 22 [place] [address] [email or web address] 07/22/2025 9:40 AM EDT Office Visit [facility] 22 [facility] 3rd Floor, [address] [place] [address] Asif Araiza MD, MS 22 [facility], [address] [place] [address] [email or web address] Scheduled Procedures Name Priority Associated Diagnoses Date/Ti me COLONOSCOPY Gastroesophageal reflux disease with esophagitis without hemorrhage ESOPHAGOGASTRODUODENOSCOPY Gastroesophageal reflux disease with esophagitis without hemorrhage documented as of this encounter Results * MRI ABDOMEN (LIVER) WITH AND WITHOUT CONTRAST (06/19/2024 10:09 AM EDT) MGB IMG WOOD SHINGLE ROOFER COMMENT Growing left adrenal nodule without specific benign features. Endocrine surgery consultation advised. Numerous pancreatic cystic lesions. Subspecialty follow-up and 12 month follow-up advised. [facility] Anatomical Region Laterality Modality Abdomen Magnetic Resonan [...] initiated on 06/22/2024 10:20 AM, Message ID [id number]. Narrative 06/22/2024 10:20 AM EDT MRI ABDOMEN (LIVER) WITH AND WITHOUT CONTRAST Referring clinician's provided indication for this examination in [facility]: Outside Radiology Order; liver and adrenal gland [...] was initiated on 06/22/2024 10:20 AM,Message ID [id number]. us Dorita SALES IMG MR ABDOMEN Final [...] documented as of this encounter Care Teams Blown Film Extrusion Operator Relationship Specialty Start Date End Date Ja Holley MD [address] [place] [address], [address] [place] [address] PCP - General Internal Medicine 07/23/20 Emile Blake MD [address] [place] [address] Gastroenterology 10/31/18 Frank Mak MD [address] [place] [address], [address] [place] [address] [email or web address] Physical Medicine and Rehabilitation 11/14/20 Jamari Ellison DO [address] [place] [address] Orthopedics & Sports Medicine, [place] [address] Orthopedic Surgery 07/24/21 Fredi Unger MD [address] [place] [address] Ophthalmology 07/24/21 Elroy Calderon MD [address] [place] [address], [address] [place] [address] Urology 10/27/21 Ja Holley MD [address] [place] [address], [address] [place] [address] Insurance Assigned Provider 05/28/23 Bartolo Morgan MD [address] [place] [address] Psychiatry 10/08/22 Molly Spring RN [address] [address] [email or web address] Transmission Operator 02/07/23 10/07/24 Maximino Dorado MD, PhD [address] [place] [address] [email or web address] Radiation Oncology 05/03/23 Lincoln Thomson MD [address] [place] [address], 2nd [place] [address] [email or web address] Physical Medicine and Rehabilitation 06/26/23 Dhaval Slater MD [address] [place] [address] Dr CALIX [address] [place] [address] Neurosurgery 07/07/23 documented as of this encounter Additional Source Comments The information contained in this document represents components of the legal health record. It is not the complete legal health record.[facility]
--- OUTSIDE RECORDS SUMMARY | 2024-12-13 06:27 | XMS_ITS | Encounter Summary ---
Author Organization [facility] Address [address] [place] [address] Phone Care Team Providers Care Jr. Java Developer Name Role Phone Emile Blake MD Unavailable [phone] Ja Holley MD Primary Care Provider [phone] Frank Mak MD Unavailable [phone] Alfonzo Perkins MD Unavailable Jamari Ellison DO Unavailable [phone] Fredi Unger MD Unavailable Elroy Calderon MD Unavailable [phone] Ja Holley MD Unavailable [phone] Bartolo Morgan MD Unavailable [phone] Molly Spring RN Unavailable [email or web address] Criss Cosme Unavailable [phone] Maximino Dorado MD, PhD Unavailable [phone] Maximino Dorado MD, PhD Unavailable [phone] Lincoln Thomson MD Unavailable [phone] Dhaval Slater MD Unavailable Encounter Details Date Type Department Care Team (Late st Contact Info) Description 03/25/2021 Transcribe Orders [facility] [address] [place] [address] Elroy Calderon MD [address] [place] [address], [address] [place] [address] [email or web address] Social History Tobacco Use Types Packs/Day Years [...] GED, job training, learning the [place] language, technical skills, or developing parenting skills)? [...] housing situation today? 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 Not on file Not on file Not on file documented as of this encounter Plan of Treatment Upcoming Encounters Date Type Department Care Team (Late st Contact Info) Description 12/28/2024 1:00 PM EST Appointment Department of Radiation Oncology [address] [place] [address] Susy Murphy PA-C [address] [place], [place] [address]am [place] [address] [email or web address] 02/19/2025 3:00 PM EST Office Visit [address] [place] [address] Ja Holley MD [address] [place] [address], [address] [place] [address] 04/30/2025 10:30 AM EDT Office Visit [facility] [address] [place] [address] [place] [address] Fredi Elaine DO [address] [place] [address] 07/22/2025 9:40 AM EDT Office Visit [facility] [address] [place] [address] 3rd Floor, [address] [place] [address] Asif Araiza MD, MS 22 [facility], [address] [place] [address] Scheduled Procedures Name Priority Associated Diagnoses Date/Ti nv COLONOSCOPY Gastroesophageal reflux disease with esophagitis without [...] documented as of this encounter Care Teams Jr. Java Developer Relationship Specialty Start Date End Date Ja Holley MD [address] [place] [address], [address] [place] [address] PCP - General Internal Medicine 07/23/20 Emile Blake MD [address] [place] [address] Gastroenterology 10/31/18 Frank Mak MD [address] [place] [address], [address] [place] [address] [email or web address] Physical Medicine and Rehabilitation 11/14/20 [place] [address] Psychiatry 02/01/21 10/07/22 Jamari Ellison DO [address] [place] [address] [facility] [place] [address] Orthopedic Surgery 07/24/21 Fredi Unger MD [address] [place] [address] Ophthalmology 07/24/21 Elroy Calderon MD [address] [place] [address], [address] [place] [address] [email or web address] Urology 10/27/21 Ja Holley MD [address] [place] [address], [address] [place] [address] [email or web address] Insurance Assigned Provider 05/28/23 Bartolo Morgan MD [address] [place] [address] Psychiatry 10/08/22 Molly Spring RN [address] [place] [address] [email or web address] Patient Biller 02/07/23 10/07/24 Criss Cosme [address] [place] [address] [email or web address] [facility] Community Health Worker 03/29/23 03/29/23 Maximino Dorado MD, PhD [address] [place] [address] [email or web address] Radiation Oncology 05/03/23 Maximino Dorado MD, PhD [address] [place] [address] [email or web address] Radiation Oncology 06/01/23 06/25/23 Lincoln Thomson MD [address] [place] [address], 2nd [place] [address] [email or web address] Physical Medicine and Rehabilitation 06/26/23 Dhaval Slater MD [address] [place] [address] [place] [address] Neurosurgery 07/07/23 documented as of this encounter Additional Source Comments The information contained in this document represents components of the legal health record. It is not the complete legal health record.[facility]
--- OUTSIDE RECORDS SUMMARY | 2024-12-13 06:27 | XMS_ITS | Encounter Summary ---
Author Organization [facility] Address [address] [place] [address] Phone Care Team Providers Care Sliding Joint Maker Name Role Phone Kellee Gomez Allan PRICE Primary Care Provider [phone] Leonel Alegria MD Primary Care Provider Emile Blake MD Unavailable [phone] Andrei Coon DO Primary Care Provider [phone] Lupis Copeland MD Primary Care Provider Gordon Moralez MD Primary Care Provider + [phone] Ja Holley MD Primary Care Provider [phone] Frank Mak MD Unavailable [phone] Alfonzo Perkins MD Unavailable [phone] Rosalia Vargas RN Unavailable [phone] Jamari Ellison DO Unavailable [phone] Fredi Unger MD Unavailable [phone] Elroy Calderon MD Unavailable [phone] Ja Holley MD Unavailable [phone] Bartolo Morgan MD Unavailable [phone] Molly Spring RN Unavailable [email or web address] Criss Cosme Unavailable [phone] Maximino Dorado MD, PhD Unavailable [phone] Maximino Dorado MD, PhD Unavailable [phone] Lincoln Thomson MD Unavailable Dhaval Slater MD Unavailable Encounter Details Date Type Department Care Team (Latest Contact Info) Description 03/28/2017 Transcribe Orders [facility] [address] 2nd [place] [address] Emile Blake MD [address] . [facility] 2 [place] [address] Abdominal distention (Primary Dx) Social History Tobacco [...] PM EST Appointment Department of Radiation Oncology [address] [place] [address] Susy Murphy PA-C [address] [place], [place] [address]am [place] [address] [email or web address] 02/19/2025 3:00 PM EST Office Visit See [facility] [address] [place] [address] Ja Holley MD [address] [place] [address], [address] [place] [address] 04/30/2025 10:30 AM EDT Office Visit [facility] [address] [place] [address] Fredi Elaine DO 22 [place] [address] 07/22/2025 9:40 AM EDT Office Visit [facility] [address], [address] [place] [address] Asif Araiza MD, MS 22 [facility], [address] [address] [email or web address] Scheduled Procedures Name Priority Associated Diagnoses Date/Ti me COLONOSCOPY Gastroesophageal reflux disease with esophagitis without hemorrhage ESOPHAGOGASTRODUODENOSCOPY Gastroesophageal reflux disease with esophagitis without hemorrhage documented as of this encounter Results * TSH (03/28/2017 1:35 PM EST) TSH 0.78 0.27 - 4.20 uIU/mL [facility] Blood 03/28/2017 1:35 PM EST 03/28/2017 1:39 PM EST us Emile Blake MD LAB BLOOD ORDERABLES Final R esult Performing Organization Address City/[facility]/ZIP Co de Phone Number [address] [address] * Lipase (03/28/2017 1:35 PM EST) LIPASE 34 16 - 63 U/L [facility] Blood 03/28/2017 1:35 PM EST 03/28/2017 1:39 PM EST us Emile Blake MD LAB BLOOD ORDERABLES Final R esult [address] [address] * Hepatitis C antibody, qualitative (03/28/2017 1:35 PM EST) HCV Negative Negative [facility] Comment: This is a screening test and should be confirmed with molecular testing Blood 03/28/2017 1:35 PM EST 03/28/2017 1:39 PM EST us Emile Blake MD LAB BLOOD ORDERABLES Final R esult Performing Organization Address [facility] Co dc Phone Number [address] [address] * Hepatitis B surface antigen (03/28/2017 1:35 PM EST) HBV SURFACE ANTIGEN Negative Negative [facility] Blood 03/28/2017 1:35 PM EST 03/28/2017 1:39 PM EST us Emile Blake MD LAB BLOOD ORDERABLES Final R esult Performing Organization Address [facility] Co dc Phone Number [address] [address] * Hepatitis A antibody, total (03/28/2017 1:35 PM EST) HAV TOTAL AB Negative Negative [facility] Blood 03/28/2017 1:35 PM EST 03/28/2017 1:39 PM EST us Emile Blake MD LAB BLOOD ORDERABLES Final R esult Performing Organization Address [facility] Co de Phone Number [address] [address] * C-Reactive Protein (03/28/2017 1:35 PM EST) C REACTIVE PROTEIN 0.2 0 - 0.5 mg/L [facility] Blood 03/28/2017 1:35 PM EST 03/28/2017 1:39 PM EST us Emile Blake MD LAB BLOOD ORDERABLES Final R esult Performing Organization Address [facility] de Phone Number [facility] [address] [place] [address] documented in this encounter Visit Diagnoses Diagnosis Abdominal distention- Primary Flatulence, eructation, and gas pain documented in this encounter Additional Health Concerns Infection Onset Date Last Indicated Resolved Time CoV-Exposed Comment:Recent close contact documented in the COVID-19 PCR/PRO order 12/04/2020 12/18/2020 12/19/2020 1:25 AM E DT CoV-Risk 01/21/2022 01/21/2022 02/01/2022 1:32 AM EST documented as of this encounter Care Teams Sliding Joint Maker Relationship Specialty Start Date End Date Kellee Gomez FNP [address] [place] [address] [email or web address] PCP - General Family Medicine 01/19/17 05/19/17 [place] [address] [email or web address] PCP - General Internal Medicine 05/20/17 01/07/19 Andrei Coon DO [address] [place] [address] [email or web address] PCP - General Family Medicine 01/08/19 01/03/20 Lupis Copeland MD [address] [place] [address] [email or web address] PCP - General Family Medicine 01/04/20 06/09/20 Gordon Moralez MD [address] [address] [email or web address] PCP - General 06/10/20 07/22/20 Ja Holley MD [address] [place] [address], [address] [place] [address] PCP - General Internal Medicine 07/23/20 Emile Blake MD [address] [place] [address] Gastroenterology 10/31/18 Frank Mak MD [address] [place] [address], [address] [place] [address] [email or web address] Physical Medicine and Rehabilitation 11/14/20 [place] [address] Psychiatry 02/01/21 10/07/22 Rosalia Vargas, KATEY [address] [place] [address] PHC Iron Pellet Tester 02/12/21 03/10/21 Jamari Ellison DO [address] [place] [address] [facility] [place] [address] Orthopedic Surgery 07/24/21 Fredi Unger MD [address] [place] [address] Ophthalmology 07/24/21 Elroy Calderon MD [address] [place] [address], [address] [place] [address] [email or web address] Urology 10/27/21 Ja Holley MD [address] [place] [address], [address] [place] [address] [email or web address] Insurance Assigned Provider 05/28/23 Bartolo Morgan MD [address] [place] [address] Psychiatry 10/08/22 Molly Spring RN [address] [place] [address] [email or web address] Iron Pellet Tester 02/07/23 10/07/24 Criss Cosme [address] [place] [address] [email or web address] [facility] Community Health Worker 03/29/23 03/29/23 Maximino Dorado MD, PhD [address] [place] [address] [email or web address] Radiation Oncology 05/03/23 Maximino Dorado MD, PhD [address] [place] [address] [email or web address] Radiation Oncology 06/01/23 06/25/23 Lincoln Thomson MD [address] [place] [address], 2nd [place] [address] [email or web address] Physical Medicine and Rehabilitation 06/26/23 Dhaval Slater MD [address] [place] [address] Neurosurgery 07/07/23 documented as of this encounter Additional Source Comments The information contained in this document represents components of the legal health record. It is not the complete legal health record.[facility]
--- OUTSIDE RECORDS SUMMARY | 2024-12-13 06:27 | XMS_ITS | Encounter Summary ---
Author Organization [facility] Address [address] [place] [address] Phone Care Team Providers Care Wall Crane Operator Name Role Phone Kellee Gomez Allan PRICE Primary Care Provider [phone] Leonel Alegria MD Primary Care Provider Emile Blake MD Unavailable [phone] Andrei Coon DO Primary Care Provider [phone] Lupis Copeland MD Primary Care Provider Gordon Moralez MD Primary Care Provider + [phone] Ja Holley MD Primary Care Provider [phone] Frank Mak MD Unavailable [phone] Alfonzo Perkins MD Unavailable [phone] Rosalia Vargas RN Unavailable [phone] Jamari Ellison DO Unavailable [phone] Fredi Unger MD Unavailable [phone] Elroy Calderon MD Unavailable [phone] Ja Holley MD Unavailable [phone] Bartolo Morgan MD Unavailable [phone] Molly Spring RN Unavailable [email or web address] Criss Cosme Unavailable [phone] Maximino Dorado MD, PhD Unavailable [phone] Maximino Dorado MD, PhD Unavailable [phone] Lincoln Thomson MD Unavailable Dhaval Slater MD Unavailable Encounter Details Date Type Department Care Team (Latest Contact Info) Description 01/19/2017 Transcribe Orders [facility] [address] [address] Dorita Mcelroy PA 10 [place] [address] Abdominal pain, epigastric (Primary Dx) Social History [...] EST Appointment Department of Radiation Oncology [address] [place] [address] Susy Murphy PA-C [address] [place] [address] [place] [address] [email or web address] 02/19/2025 3:00 PM EST Office Visit [facility] [address] [place] [address] Ja Holley MD 22 [facility], [address] [place], [place] [id number] 04/30/2025 10:30 AM EDT Office Visit [facility] [address] [place] [address] [place] [address] Fredi Elaine DO 22 [place] [address] 07/22/2025 9:40 AM EDT Office Visit [facility] 22 [facility] 3rd Floor, [address] [place] [address] Asif Araiza MD, MS 22 [facility], [address] [place] [address] [email or web address] Scheduled Procedures Name Priority Associated Diagnoses Date/Ti ok COLONOSCOPY Gastroesophageal reflux disease with esophagitis without hemorrhage ESOPHAGOGASTRODUODENOSCOPY Gastroesophageal reflux disease with esophagitis without hemorrhage documented as of this encounter Results * Lipase (01/19/2017 11:41 AM EST) LIPASE 32 16 - 63 U/L [facility] Blood 01/19/2017 11:4 1 AM EST 01/19/2017 11:45 AM EST us Dorita SALES LAB BLOOD ORDERABLES Final Result [facility] [address] [place] [address] * (ABNORMAL) Comprehensive metabolic panel (01/19/2017 11:41 AM EST) SODIUM 140 133 - 146 mmol/L [facility] POTASSIUM 4.5 3.3 - 5.1 mmol/L [facility] CHLORIDE 101 96 - 108 mmol/L [facility] CO2 29 21 - 35 mmol/L [facility] BUN 19 6 - 19 mg/dL [facility] CREATININE 1.10 0.5 - 1.5 mg/dL [facility] GLUCOSE 97 70 - 99 mg/dL [facility] ALBUMIN 4.3 3.9 - 4.8 g/dL [facility] TOTAL PROTEIN 7.1 6.5 - 8.0 g/dL [facility] CALCIUM 9.7 8.4 - 10.3 mg/dL [facility] ALKALINE PHOSPHATASE 89 39 - 117 U/L [facility] TOTAL BILIRUBIN 0.6 0 - 1.2 mg/dL [facility] AST 48(H) 0 - 37 U/L [facility] ALT 64(H) 0 - 40 U/L [facility] GLOBULIN 2.8 1 - 4.8 g/dL [facility] EGFR >60 60 - 1000 mL/min/1.7 3m2 [facility] Comment:Abnormal if <60. If patient is -Jamaican, multiply the result by 1.21. ANION GAP 15 10 - 20 mmol/L [facility] Blood 01/19/2017 11:4 1 AM EST 01/19/2017 11:45 AM EST us Dorita SALES LAB BLOOD ORDERABLES Final Result Performing Organization Address City/State/[facility] Co de Phone Number [facility] [address] [place] [address] * CBC and differential (01/19/2017 11:41 AM EST) WBC 6.48 3.40 - 11.20 K/uL [facility] RBC 5.16 4.50 - 5.50 M/uL [facility] HGB 15.1 13.0 - 17.0 g/dL [facility] HCT 44.7 40.0 - 51.0 % [facility] PLT 280 130 - 400 K/uL [facility] MCV 86.6 79.0 - 98.0 fL [facility] MCH 29.3 27.0 - 34.8 pg [facility] MCHC 33.8 31.5 - 36.0 g/dL [facility] RDW 13.2 10.8 - 14.6 % [facility] MPV 9.8 9.4 - 12.4 fl [facility] NRBC 0.00 /100 WBCs [facility] ABSOLUTE NRBC 0.00 K/uL [facility] DIFF METHOD Auto [facility] NEUTS 50.0 45.30 - 77.70 % [facility] LYMPHS 36.7 12.30 - 39.70 % [facility] MONOS 8.8 4.10 - 12.80 % [facility] EOS 2.9 0 - 7.2 % [facility] BASOS 1.1 0 - 2.80 % [facility] Granulocytes, immature (%) 0.5 0.0 - 0.9 % [facility] ABSOLUTE NEUTS 3.24 1.40 - 7.70 K/uL [facility] ABSOLUTE LYMPHS 2.38 0.60 - 3.20 K/uL [facility] ABSOLUTE MONOS 0.57 0.11 - 0.59 K/uL [facility] ABSOLUTE EOS 0.19 0.01 - 0.50 K/uL [facility] ABSOLUTE BASOS 0.07 0.00 - 0.08 K/uL [facility] Granulocytes, immature 0.03 0.00 - 0.05 K/uL [facility] Blood 01/19/2017 11:4 1 AM EST 01/19/2017 11:45 AM EST us Dorita SALES LAB BLOOD ORDERABLES Final Result Performing Organization Address City/State/[facility] Co de Phone Number [address] [address] documented in this encounter Visit Diagnoses Diagnosis Abdominal pain, epigastric- Primary documented in this encounter Additional Health Concerns Infection Onset Date Last Indicated Resolved Time CoV-Exposed Comment:Recent close contact documented in the COVID-19 PCR/PRO order 12/04/2020 12/18/2020 12/19/2020 1:25 AM E DT CoV-Risk 01/21/2022 01/21/2022 02/01/2022 1:32 AM EST documented as of this encounter Care Teams Wall Crane Operator Relationship Specialty Start Date End Date Kellee Gomez FNP [address] [place] [address] PCP - General Family Medicine 01/19/17 05/19/17 [place] [address] PCP - General Internal Medicine 05/20/17 01/07/19 Andrei Coon DO [address] [place] [address] [email or web address] PCP - General Family Medicine 01/08/19 01/03/20 Lupis Copeland MD [address] [place] [address] [email or web address] PCP - General Family Medicine 01/04/20 06/09/20 Gordon Moralez MD [address] [place] [address] [email or web address] PCP - General 06/10/20 07/22/20 Ja Holley MD [address] [place] [address], [address] [place] [address] PCP - General Internal Medicine 07/23/20 Emile Blake MD [address] [place] [address] Gastroenterology 10/31/18 Frank Mak MD [address] [place] [address], [address] [place] [address] [email or web address] Physical Medicine and Rehabilitation 11/14/20 [place] [address] Psychiatry 02/01/21 10/07/22 Rosalia Vargas RN [address] [place] [address] [email or web address] PHCM Campaign Director 02/12/21 03/10/21 Jamari Ellison DO 4 [facility] Orthopedics & Sports Medicine, [facility] [place] [address] Orthopedic Surgery 07/24/21 Fredi Unger MD [address] [place] [address] Ophthalmology 07/24/21 Elroy Calderon MD [address] [place] [address], [address] [place] [address] Urology 10/27/21 Ja [place]ley MD [address] [place] [address], [address] [place] [address] [email or web address] Insurance Assigned Provider 05/28/23 Bartolo Morgan MD [address] [place] [address] Psychiatry 10/08/22 Molly Spring RN [address] [address] [email or web address] PHCM Campaign Director 02/07/23 10/07/24 Criss Cosme 10 [place] [address] [email or web address] [facility] Community Health Worker 03/29/23 03/29/23 Maximino Droado MD, PhD [address] [place] [address] [email or web address] Radiation Oncology 05/03/23 Maximino Dorado MD, PhD [address] [place] [address] [email or web address] Radiation Oncology 06/01/23 06/25/23 [place] Thomson MD [address] [place] [address], 2nd [place] [address] [email or web address] Physical Medicine and Rehabilitation 06/26/23 Dhaval Slater MD [address] [place] [address] [place] [address] Neurosurgery 07/07/23 documented as of this encounter Additional Source Comments The information contained in this document represents components of the legal health record. It is not the complete legal health record.[facility]
--- OUTSIDE RECORDS SUMMARY | 2024-12-13 06:27 | XMS_ITS | Encounter Summary ---
Author Organization [facility] Address [address] [place] [address] Phone Care Team Providers Care Tar Leveler Name Role Phone Emile Blake MD Unavailable Ja Holley MD Primary Care Provider [phone] Frank Mak MD Unavailable [phone] Alfonzo Perkins MD Unavailable Rosalia Vargas RN Unavailable [phone] Jamari Ellison DO Unavailable Fredi Unger MD Unavailable Elroy Calderon MD Unavailable [phone] Ja Holley MD Unavailable [phone] Bartolo Morgan MD Unavailable [phone] Molly Spring RN Unavailable [email or web address] Criss Cosme Unavailable [phone] Maximino Dorado MD, PhD Unavailable [phone] Maximino Dorado MD, PhD Unavailable [phone] [place] Thomson MD Unavailable Dhaval Slater MD Unavailable Encounter Details Date Type Department Care Team (Late st Contact Info) Description 02/04/2021 Transcribe Orders [facility] PM[facility]R [address] [address] Eunice Rajan [address] [address] [email or web address] Social History Tobacco Use Types Packs/Day Years [...] high school, GED, job training, learning the Bahraini language, technical skills, or developing parenting skills)? 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 Not on file disabled Not on file Not on file Not on file documented as of this encounter Plan of Treatment Upcoming Encounters Date Type Department Care Team (Late st Contact Info) Description 12/28/2024 1:00 PM EST Appointment Department of Radiation Oncology [address] [place] [address] Susy Murphy PA-C [address] [place] [address] [place] [address] [email or web address] 02/19/2025 3:00 PM EST Office Visit [address] [place] [address] Ja Holley MD [address] [place] [address], [address] [place] [address] 04/30/2025 10:30 AM EDT Office Visit [facility] [address] [place] [address] [place] [address] Fredi Elaine DO [address] [place] [address] 07/22/2025 9:40 AM EDT Office Visit [facility] [address] [place] [address] 3rd Floor, [address] [place] [address] Asif Araiza MD, MS [address] [place] [address], [address] [place] [address] Scheduled Procedures Name Priority Associated Diagnoses Date/Ti wa COLONOSCOPY Gastroesophageal reflux disease with esophagitis without [...] documented as of this encounter Care Teams Tar Leveler Relationship Specialty Start Date End Date Ja Holley MD [address] [place] [address], [address] [place] [address] PCP - General Internal Medicine 07/23/20 Emile Blake MD [address] [place] [address] Gastroenterology 10/31/18 Frank Mak MD [address] [place] [address], [address] [place] [address] [email or web address] Physical Medicine and Rehabilitation 11/14/20 [place] [address] Psychiatry 02/01/21 10/07/22 Rosalia Vargas, KATEY 30 [place] [address] PHC Facetor 02/12/21 03/10/21 Jamari Ellison DO [address] [place] [address] [facility] [address] Orthopedic Surgery 07/24/21 Fredi Unger MD 33 [facility] 2 [place] [address] Ophthalmology 07/24/21 Elroy Calderon MD [address] [place], [place] [address] [place] [address] [email or web address] Urology 10/27/21 Ja Holley MD [address] [place] [address], [address] [place] [address] [email or web address] Insurance Assigned Provider 05/28/23 Bartolo Morgan MD [address] [place] [address] Psychiatry 10/08/22 Molly Spring, KATEY [address] [place] [address] [email or web address] PHCM Facetor 02/07/23 10/07/24 Criss Cosme 10 [place] [address] [email or web address] PHC Community Health Worker 03/29/23 03/29/23 Maximino Dorado MD, PhD [address] [place] [address] [email or web address] Radiation Oncology 05/03/23 Maximino Dorado MD, PhD [address] [place] [address] [email or web address] Radiation Oncology 06/01/23 06/25/23 [place] Thomson MD [address] [place] [address], 2nd [place] [address] [email or web address] Physical Medicine and Rehabilitation 06/26/23 Dhaval Slater MD [address] [place] [address] [place] [address] Neurosurgery 07/07/23 documented as of this encounter Additional Source Comments The information contained in this document represents components of the legal health record. It is not the complete legal health record.[facility]
--- OUTSIDE RECORDS SUMMARY | 2024-12-13 06:27 | XMS_ITS | Encounter Summary ---
Author Organization [facility] Address [address] [place] [address] Phone Care Team Providers Care Bender Hand Name Role Phone Emile Blake MD Unavailable Ja Holley MD Primary Care Provider [phone] Frank Mak MD Unavailable Alfonzo Perkins MD Unavailable Rosalia Vargas RN Unavailable [phone] Jamari Ellison DO Unavailable Fredi Unger MD Unavailable Elroy Calderon MD Unavailable Ja [place]ley MD Unavailable [phone] Bartolo Morgan MD Unavailable [phone] Molly Spring RN Unavailable [email or web address] Criss Cosme Unavailable [phone] Maximino Dorado MD, PhD Unavailable [phone] Maximino Dorado MD, PhD Unavailable [phone] [place] Thomson MD Unavailable Dhaval Slater MD Unavailable Reason for Visit * Reason Onset Date Comments pain clinic referral 11/21/2020 Encounter Details Date Type Department Care Team (Late st Contact Info) Description 11/21/2020 Telephone See [facility] [address] [place] [address] Ja [place]ley MD [address], [address] [place] [address] [email or web address] pain clinic referral Social History Tobacco Use [...] high school, GED, job training, learning the Finnish language, technical skills, or developing parenting skills)? 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 Patient would like referral for [facility] pain clinic. Script and referral pended. * Ja Holley MD - 11/24/2020 11:35 AM EDT I sent in a prescription for venlafaxine. He can start taking that now and discontinue taking citalopram. During the transition between medications, he may feel mildly unwell, but this should gradually improve over a week or 2. [facility] pain clinic is not likely to be able to offer anything other than injections. I think he will have better luck at the [facility] pain clinic. If you would like referral there I can arrangethat. I suggest seeing the pain clinic there prior to seeing another surgeon. * Terrie Meyers RN - 11/24/2020 9:05 AM EDT Spoke with patient who calls to request [facility] Pain management referral. Would like to explore other modalities of treatment rather than injections and mediation. Referral pended. Patient also would like to see a back surgeon. Does PCP have recommendations at [facility], or [facility]? Patient requests new prescription. States currently taking half of Celexa and had discussed switching to Effexor at last OV. * Angel Ttoh - 11/21/2020 1:37 PM EDT Albert called in, is not satisfied with his treatment from [facility], he would like to go to a pain clinic. Please contact and advise. documented in this encounter Plan of Treatment Upcoming Encounters Date Type Department Care Team (Late st Contact Info) Description 12/28/2024 1:00 PM EST Appointment Department of Radiation Oncology [address] [place] [address] Susy Murphy PA-C [address] [place] [address] [place] [address] [email or web address] 02/19/2025 3:00 PM EST Office Visit [facility] [address] [place] [address] [place] [address] Ja Holley MD [address] [place] [address], [address] [place] [address] 04/30/2025 10:30 AM EDT Office Visit [facility] [address] [place] [address] [place] [address] Fredi Elaine DO [address] [place] [address] 07/22/2025 9:40 AM EDT Office Visit [facility] [address] [place] [address] 3rd Floor, [address] [place] [address] Asif Araiza MD, MS [address] [place] [address], [address] [place] [address] Scheduled Procedures Name Priority Associated Diagnoses Date/Ti [...] documented as of this encounter Care Teams Bender Hand Relationship Specialty Start Date End Date Ja Holley MD [address] [place] [address] PCP - General Internal Medicine 07/23/20 Emile Blake MD [address] [place] [address] Gastroenterology 10/31/18 Frank Mak MD [address] [place] [address] [email or web address] Physical Medicine and Rehabilitation 11/14/20 [place] [address] Psychiatry 02/01/21 10/07/22 Rosalia Vargas RN [address] [place] [address] [email or web address] PHC Verify Rep 02/12/21 03/10/21 Jamari Ellison DO [address] [place] [address] Orthopedics & Sports Medicine, [facility] [place] [address] Orthopedic Surgery 07/24/21 Fredi Unger MD [address] [place] [address] 2 [place] [address] Ophthalmology 07/24/21 Elroy Calderon MD [address] [place] [address], [address] [place] [address] [email or web address] Urology 10/27/21 Ja Holley MD [address] [place] [address], [address] [place] [address] [email or web address] Insurance Assigned Provider 05/28/23 Bartolo Morgan MD [address] [place] [address] Psychiatry 10/08/22 Molly Spring RN [address] [place] [address] [email or web address] [email or web address] Rep 02/07/23 10/07/24 Criss Cosme 10 [place] [address] [email or web address] [facility] Community Health Worker 03/29/23 03/29/23 Maximino Dorado MD, PhD [address] [place] [address] [email or web address] Radiation Oncology 05/03/23 Maximino Dorado MD, PhD [address] [place] [address] [email or web address] Radiation Oncology 06/01/23 06/25/23 Lincoln Thomson MD [address] [place] [address], 2nd [place] [address] [email or web address] Physical Medicine and Rehabilitation 06/26/23 Dhaval Slater MD [address] [place] [address] [place] [address] Neurosurgery 07/07/23 documented as of this encounter Additional Source Comments The information contained in this document represents components of the legal health record. It is not the complete legal health record.[facility]
--- OUTSIDE RECORDS SUMMARY | 2024-12-13 06:27 | XMS_ITS | Encounter Summary ---
Author Organization [facility] Address [address] [place] [address] Phone Care Team Providers Care Signal Wirer Name Role Phone Emile Blake MD Unavailable [phone] Ja Holley MD Primary Care Provider + [phone] Frank Mak MD Unavailable [phone] Jamari Ellison DO Unavailable [phone] Fredi Unger MD Unavailable [phone] Elroy Calderon MD Unavailable [phone] Ja Holley MD Unavailable [phone] Bartolo Morgan MD Unavailable [phone] Molly Spring RN Unavailable [email or web address] Maximino Dorado MD, PhD Unavailable +[phone] Lincoln Thomson MD Unavailable [phone] Dhaval Slater MD Unavailable Encounter Details Date Type Department Care Team (Late st Contact Info) Description 05/29/2024 Procedure Pass [facility], [address] [place] [address] Social History Tobacco Use Types Packs/Day Years [...] 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 Not on file Not on file Not on file documented as of this encounter Plan of Treatment Upcoming Encounters Date Type Department Care Team (Late st Contact Info) Description 12/28/2024 1:00 PM EST Appointment Department of Radiation Oncology [address] [place] [address] Susy Murphy PA-C [address] [place] [address] [place] [address] [email or web address] 02/19/2025 3:00 PM EST Office Visit [address] [address] Ja Holley MD [address] [place] [address], [address] [place] [address] 04/30/2025 10:30 AM EDT Office Visit [facility] [address] [place] [address] Fredi Elaine DO [address] [place] [address] 07/22/2025 9:40 AM EDT Office Visit [facility] [address] [place] [address] 3rd Floor, [address] [place] [address] Asif Araiza MD, MS [address] [place] [address], [address] [place] [address] Scheduled Procedures Name Priority Associated Diagnoses Date/Ti nv COLONOSCOPY Gastroesophageal reflux disease with esophagitis without hemorrhage ESOPHAGOGASTRODUODENOSCOPY Gastroesophageal reflux disease with esophagitis without hemorrhage documented as of this encounter Visit Diagnoses Not on filedocumented in this encounter Additional Health Concerns Assessment Noted Time PHQ-9 Depression Total Score: 24 025 8:29 AM EST PHQ-2 Depression Total Score: 03/22/19 25 8:29 AM EST documented as of this encounter Care Teams Signal Wirer Relationship Specialty Start Date End Date Ja Holley MD [address] [place] [address], [address] [place] [address] PCP - General Internal Medicine 07/23/20 Emile Blake MD [address] [place] [address] Gastroenterology 10/31/18 Frank Mak MD [address] [place] [address], [address] [place] [address] [email or web address] Physical Medicine and Rehabilitation 11/14/20 Jamari Ellison DO [address] [place] [address] Orthopedics & Sports Medicine, [place] [address] Orthopedic Surgery 07/24/21 Fredi Unger MD [address] [place] [address] Ophthalmology 07/24/21 Elroy Calderon MD [address] [place] [address], [address] [address] Urology 10/27/21 Ja Holley MD [address] [facility], [address] [place] [address] [email or web address] Insurance Assigned Provider 05/28/23 Bartolo Morgan MD [address] [place] [address] Psychiatry 10/08/22 Molly Spring RN [address] [place] [address] [email or web address] 02/07/23 10/07/24 Maximino Dorado MD, PhD [address] [place] [address] [email or web address] Radiation Oncology 05/03/23 Lincoln Thomson MD [address] [place] [address], 2nd [place] [address] [email or web address] Physical Medicine and Rehabilitation 06/26/23 Dhaval Slater MD [address] [place] [address] Dr [address] [place] [address] Neurosurgery 07/07/23 documented as of this encounter Additional Source Comments The information contained in this document represents components of the legal health record. It is not the complete legal health record.[facility]
--- OUTSIDE RECORDS SUMMARY | 2024-12-13 06:27 | XMS_ITS | Encounter Summary ---
Author Organization [facility] Address [address] [place] [address] Phone Care Team Providers Care Rn Intensive Care Unit Name Role Phone Emile Blake MD Unavailable Ja Holley MD Primary Care Provider [phone] Frank Mak MD Unavailable Alfonzo Perkins MD Unavailable Rosalia Vargas RN Unavailable [phone] Jamari Ellison DO Unavailable [phone] Fredi Unger MD Unavailable Elroy Calderon MD Unavailable [phone] Ja Holley MD Unavailable [phone] Bartolo Morgan MD Unavailable [phone] Molly Spring RN Unavailable [email or web address] Criss Cosme Unavailable [phone] Maximino Dorado MD, PhD Unavailable [phone] Maximino Dorado MD, PhD Unavailable [phone] Lincoln Thomson MD Unavailable Dhaval Slater MD Unavailable Encounter Details Date Type Department Care Team (Late st Contact Info) Description 11/05/2020 Procedure Pass [place] Admitting Dept - Virtual Department [address] [place] [address] Social History Tobacco Use Types Packs/Day Years [...] high school, GED, job training, learning the Hong Konger language, technical skills, or developing parenting skills)? 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 Not on file Not on file Not on file documented as of this encounter Plan of Treatment Upcoming Encounters Date Type Department Care Team (Late st Contact Info) Description 12/28/2024 1:00 PM EST Appointment Department of Radiation Oncology [address] [address] Susy Murphy PA-C [address] [place] [address] [place] [address] [email or web address] 02/19/2025 3:00 PM EST Office Visit [address] [place] [address] Ja Holley MD [address] [place] [address], [address] [place] [address] 04/30/2025 10:30 AM EDT Office Visit [facility] [address] [place] [address] [place] [address] Fredi Elaine DO [address] [place] [address] 07/22/2025 9:40 AM EDT Office Visit [facility] [address] [place] [address] 3rd Floor, [address] [place] [address] Asif Araiza MD, MS [address] [place] [address], [address] [place] [address] Scheduled Procedures Name Priority Associated Diagnoses Date/Ti sd COLONOSCOPY Gastroesophageal reflux disease with esophagitis without [...] documented as of this encounter Care Teams Rn Intensive Care Unit Relationship Specialty Start Date End Date Ja Holley MD [address] [place] [address], [address] [place] [address] PCP - General Internal Medicine 07/23/20 Emile Blake MD [address] [place] [address] Gastroenterology 10/31/18 Frank Mak MD [address] [place] [address] [address] [place] [address] [email or web address] Physical Medicine and Rehabilitation 11/14/20 [place] [address] Psychiatry 02/01/21 10/07/22 Rosalia Vargas, RN [address] [place] [address] PHCM World Renowned Chef And Restaurant Owner 02/12/21 03/10/21 Jamari Ellison DO [address] [place] [address] Orthopedics & Sports Medicine, [facility] [place] [address] Orthopedic Surgery 07/24/21 Fredi Unger MD [address] [place] [address] 2 [place] [address] Ophthalmology 07/24/21 Elroy Calderon MD [address] [place] [address], [address] [place] [address] [email or web address] Urology 10/27/21 Ja Holley MD [address] [place] [address], [address] [place] [address] [email or web address] Insurance Assigned Provider 05/28/23 Bartolo Morgan MD [address] [place] [address] Psychiatry 10/08/22 Molly Spring RN [address] [place] [address] [email or web address] PHCM World Renowned Chef And Restaurant Owner 02/07/23 10/07/24 Criss Cosme [address] [place] [address] [email or web address] PHC Community Health Worker 03/29/23 03/29/23 Maximino Dorado MD, PhD [address] [place] [address] [email or web address] Radiation Oncology 05/03/23 Maximino Dorado MD, PhD [address] [place] [address] [email or web address] Oncology 06/01/23 06/25/23 Lincoln Thomson MD [address] [place] [address], 2nd [place] [address] Physical Medicine and Rehabilitation 06/26/23 Bryon, Dhaval Alvarado MD [address] [place] [address] [place] [address] Neurosurgery 07/07/23 documented as of this encounter Additional Source Comments The information contained in this document represents components of the legal health record. It is not the complete legal health record.[facility]
== END 2024-12-13 06:24 | disposition home or self-care (01) ==
LOC: CF 06:23
PROVIDERS: Visit Provider Internal Medicine
DX: M47.816 Spondylosis without myelopathy or radiculopathy, lumbar region (principal)
CPT/HCPCS: 64493; 64494; J2003; J2795; Q9967

== ENCOUNTER 2024-12-13 12:32 | Outpatient (AMB) | payer MEDICARE, MEDICAID, SELFPAY ==
[2024-12-13 12:48] VITALS: BP 128/67; PULSE 67; RESP 16; O2SAT 98
--- NOTE | 2024-12-13 12:48 | A.OFFVIS_ITS ---
Vital Signs 12/13/24 12:48 12/13/24 13:26 BP 128/67 138/72 Blood Pressure Location Lt brachial Lt brachial Position Sitting Sitting Respiration 16 16 Pulse 67 60 Pulse Source Pulse Oximeter Pulse Oximeter Pulse Oximetry (%) 98 97 Oxygen Delivery Method Room Air Room Air Intake Visit Reasons: Bilateral Diagnostic L3-L4-L5 MBB Certified Bench Jeweler Technician Required: No Allergies No Known Allergies Allergy (Verified 12/13/24 12:49) Medication List - Last Reconciled 12/13/24 by Marilu Rincon LPN amlodipine 5 mg PO BID cholecalciferol (vitamin D3) 50 mcg PO DAILY clonidine HCl 0.2 mg PO BID diazepam (Valium) 0.5 mg PO BID PRN olmesartan 40 mg PO DAILY rosuvastatin (Crestor) 40 mg PO DAILY tamsulosin 0.4 mg PO BEDTIME tirzepatide (Mounjaro) mg subcut HPI HPI Bilateral Diagnostic L3-L4-L5 MBB: Details: Patient presents for scheduled procedure. Denies any recent cough, cold, infection, fever or other significant changes in medical history since last office visit. [facility]LY [facility], [facility] Medical History (Updated 01/17/24 @ 08:29 by Feliebrto Delgadillo MD) Pre-diabetes BRIANA (obstructive sleep apnea) BPH (benign prostatic hyperplasia) Hyperlipidemia Hypertension Surgical History (Updated 12/28/23 @ 10:24 by Leslie Mattson RN) History of orthopedic surgery H/O hernia repair History of knee replacement Social History Are you a primary prompt care rn to a significant other at home: No Do you presently have visiting nurse or other home services: No Patient Tobacco Use Status: Never used Tobacco Physical Exam Vital Signs: Last Vital Signs Pulse 60 12/13/24 13:26 Resp 16 12/13/24 13:26 BP 138/72 12/13/24 13:26 Pulse Ox 97 12/13/24 13:26 Oxygen Delivery Method Room Air 12/13/24 13:26 Office Procedures Details: Lumbar Medial Branch Block, bilateral L3, L4 medial branches and L5 Dorsal Ramus (2 levels, 3 nerves) After obtaining written consent, pre-procedure blood pressure and pulse were recorded and are in the nursing record for review. The patient was placed in a prone position. The respective lumbosacral area was prepped with chloraprep and draped in sterile fashion. The skin over the target medial branch nerves was anesthetized with 0.5% lidocaine. A 22 gauge 3.5 inch needle was inserted into the target medial branch nerve under fluoroscopic guidance. No paresthesias were elicited with needle placement and aspiration was negative for blood and CSF. Next, 0.2cc of omnipaque 180 was injected to verify positioning in AP and oblique imaging. Next 0.5 ml 0.5% ropivicaine was injected (0.5cc total per level). The identical procedure was performed at the remaining levels. The skin was cleansed and a sterile bandage was applied. Following the procedure the patient's vital signs were stable. The patient tolerated the procedure well and no complications were encountered. Following the procedure the patient's vital signs were stable. The patient was discharged home in good condition with post-procedural instructions. Time Out: Immediately prior to the procedure, the following was verbally confirmed that there is a signed consent form and that the correct patient, planned procedure, site and side are consistent with documentation and that necessary equipment and/or blood products are available prior to the start of the case. Complications: none EBL: <5 cc 15483 - with Fluoroscopy (L3-L4) (Bilateral) 30512 - second level with Fluoroscopy (L3-L4-L5) Procedure code (CPT) selection complete Assessment & Plan Assessment & Plan (1) Lumbar spondylosis: Code(s): M47.816 - Spondylosis without myelopathy or radiculopathy, lumbar region Category: Medical Plan Patient is status post bilateral L3, L4 medial branches and L5 dorsal ramus diagnostic blocks. Patient tolerated procedure well and was discharged home in stable condition with discharge instructions. All questions were answered. We will follow-up via telephone or in clinic to assess response to therapy. A follow-up appointment was made during today's visit. Orders: Orders FL guidance in treatment room Today Radha Orellana APRN, MOTORCYCLE FABRICATOR M47.816 - Spondylosis without myelopathy or radiculopathy, lumbar region AMB Medial Branch Block - Lumbar/Sacral Today Feliberto Delgadillo MD M47.816 - Spondylosis without myelopathy or radiculopathy, lumbar region Coding Level of Care Code Procedure Only Diagnoses Lumbar spondylosis M47.816 CPT Codes Medial Branch Block Lumbar/Sacral1 - Branch Block Lumb/Sac 1: 50956 - with Fluoroscopy (L3-L4) ([id number]) Medial Branch Block Lumbar/Sacral1 - Branch Block Lumb/Sac 2: 04870 - second level with Fluoroscopy (L3-L4-L5) ([id number])
[2024-12-13 13:26] VITALS: BP 138/72; PULSE 60; RESP 16; O2SAT 97
--- OUTSIDE RECORDS SUMMARY | 2024-12-13 15:39 | XMS_ITS | Clinical Summary ---
Author Organization [facility] [address] [place] [address] Phone Care Team Providers Care Correctional Officer Captain Name Role Phone Ja Holley MD Primary Care Provider Allergies No known active allergies Medications olmesartan (Benicar) 40 MG tablet Take 1 tablet (40 mg total) by mouth 1 (one) time each day 30 tablet 5 05/25/2024 Active amLODIPine (NORVASC) 5 MG tablet Take 1 tablet (5 mg total) by mouth at bed time 30 tablet 5 05/25/2024 Active Active Problems Problem Noted Date Diagnosed Date Essential (primary) hypertension 03/07/2024 Encounters Date Type Department Care Team Description 12/13/2024 Refill [facility] [address]ette [address] [place] [address] Nathan Bacon MD from Last 3 Months Social History Tobacco [...] Colonoscopy 09/08/1999 Colorectal Cancer Screening: Sigmoidoscopy 09/08/1999 Hepatitis B Vaccine (1 of 3 - Risk 3-dose series) 2010 Diabetes: Hemoglobin A1C 02/23/2024 Diabetes: Ophthalmology Exam 02/23/2024 Diabetes: Pedal Pulse Checked 02/23/2024 Diabetes: Sensory Foot Exam 02/23/2024 Diabetes: Visual Foot Exam 02/23/2024 Influenza Vaccine (#1) 2024 0, 11/08/2019, 12/19/2018, Additional history exists Pneumococcal Vaccine: 50+ Years Completed 0, 12/16/2016 Pneumococcal Vaccine: Peds ( 0 to 5 Years) and At-Risk Patients (6 to 49 Years) Discontinued 12/27/2019, 12/16/2016 Insurance * Guarantor: Albert Green Account Type Relation to Patient Date of Phone Billing Address Personal/Family Self [address] [place] [address] Medicare Medicaid [place] * Guarantor: Albert Green Account Type Relation to Patient Date of Phone Billing Address Personal/Family Self [address] [place] [address] * Guarantor: Albert Green Account Type Relation to Patient Date of Phone Billing Address Personal/Family Self [address] [place] [address] Care Teams Correctional Officer Captain Relationship Specialty Start Date End Date Ja Holley MD [address] [place] [address], [address] [place] [address] PCP - General Internal Medicine 02/21/24
--- OUTSIDE RECORDS SUMMARY | 2024-12-13 15:39 | XMS_ITS | Encounter Summary ---
Author Organization [facility] Address [address] [place] [address] Phone Care Team Providers Care Silo Erector Name Role Phone Ja Holley MD Primary Care Provider Encounter Details Date Type Department Care Team (Late st Contact Info) Description 07/19/2024 Documentation Only [facility] [place], [address] [place] [address] Manuela Torres [address] [place] [address] Social History Tobacco Use Types [...] on filedocumented in this encounter Care Teams Silo Erector Relationship Specialty Start Date End Date Ja Holley MD [address] [place] [address], [address] [place] [address] PCP - General Internal Medicine 02/21/24 documented as of this encounter
--- OUTSIDE RECORDS SUMMARY | 2024-12-13 15:39 | XMS_ITS | Encounter Summary ---
Author Organization [facility] Address [address] [place] [address] Phone Care Team Providers Care Choke Setter Name Role Phone Ja Holley MD Primary Care Provider Encounter Details Date Type Department Care Team (Late st Contact Info) Description 05/24/2024 Documentation Only [facility] [place], [address] [place] [address] [place] [address] [place] [address] Social History Tobacco Use Types [...] on filedocumented in this encounter Care Teams Choke Setter Relationship Specialty Start Date End Date Ja Holley MD [address] [place] [address], [address] [place] [address] PCP - General Internal Medicine 02/21/24 documented as of this encounter
--- OUTSIDE RECORDS SUMMARY | 2024-12-13 15:39 | XMS_ITS | Encounter Summary ---
Author Organization [facility] Address [address] [place] [address] Phone Care Team Providers Care Glass Mold Repairer Name Role Phone Ja Holley MD Primary Care Provider [phone] Encounter Details Date Type Department Care Team (Late st Contact Info) Description 02/21/2024 Documentation Only [facility] [place], [address] [place] [address] [place], [place] [address] [place] [address] Social History Tobacco Use Types [...] on filedocumented in this encounter Care Teams Glass Mold Repairer Relationship Specialty Start Date End Date Ja Holley MD [address] [place] [address], [address] [place] [address] PCP - General Internal Medicine 02/21/24 documented as of this encounter
--- OUTSIDE RECORDS SUMMARY | 2024-12-13 15:39 | XMS_ITS | Encounter Summary ---
Author Organization [facility] Address [address] [place] [address] Phone Care Team Providers Care Charging Manipulator Name Role Phone Ja Holley MD Primary Care Provider Encounter Details Date Type Department Care Team (Late st Contact Info) Description 03/16/2024 Documentation Only [facility] [place], [address] [place] [address] Manuela Torres [address] [place] [address] Social History Tobacco Use Types [...] on filedocumented in this encounter Care Teams Charging Manipulator Relationship Specialty Start Date End Date Ja Holley MD [address] [place] [address], [address] [place] [address] PCP - General Internal Medicine 02/21/24 documented as of this encounter
--- OUTSIDE RECORDS SUMMARY | 2024-12-13 15:39 | XMS_ITS | Encounter Summary ---
Author Organization [facility] Address [address] [place] [address] Phone Care Team Providers Care Oracle Security Consultant Name Role Phone Ja Holley MD Primary Care Provider Encounter Details Date Type Department Care Team (Late st Contact Info) Description 07/19/2024 Documentation Only [facility] [place], [address] [place] [address] Manuela Torres [address] [place] [address] Social History Tobacco Use Types [...] on filedocumented in this encounter Care Teams Oracle Security Consultant Relationship Specialty Start Date End Date Ja Holley MD [address] [place] [address], [address] [place] [address] PCP - General Internal Medicine 02/21/24 documented as of this encounter
--- OUTSIDE RECORDS SUMMARY | 2024-12-13 15:39 | XMS_ITS | Encounter Summary ---
Author Organization [facility] [place], Address [address] [place] [address] Phone Care Team Providers Care Mandarin Speaking Nanny Name Role Phone Ja Holley MD Primary Care Provider [phone] Reason for Visit * Reason Comments Med Refill Encounter Details Date Type Department Care Team (Late st Contact Info) Description 12/13/2024 Refill [facility] [address] [place] [address] Nathan Bacon MD [address] [place] [address] [place] [address] Social History Tobacco Use Types Packs/Day Years [...] on filedocumented in this encounter Care Teams Mandarin Speaking Nanny Relationship Specialty Start Date End Date Ja Holley MD [address] [place] [address], [address] [place] [address] PCP - General Internal Medicine 02/21/24 documented as of this encounter
--- OUTSIDE RECORDS SUMMARY | 2024-12-13 15:39 | XMS_ITS | Encounter Summary ---
Author Organization [facility] Address [address] [place] [address] Phone Care Team Providers Care Insurance Sales Professional Name Role Phone Ja Holley MD Primary Care Provider Encounter Details Date Type Department Care Team (Late st Contact Info) Description 02/24/2024 Documentation Only [facility] [place], [address] [place] [address] [place], [place] [address] [place] [address] Social History Tobacco Use Types [...] on filedocumented in this encounter Care Teams Insurance Sales Professional Relationship Specialty Start Date End Date Ja Holley MD [address] [place] [address], [address] [place] [address] PCP - General Internal Medicine 02/21/24 documented as of this encounter
== END 2024-12-13 13:25 | disposition home or self-care (01) ==
LOC: HO.PMCPRC 12:32
PROVIDERS: PCP Internal Medicine; Visit Provider Internal Medicine
DX: M47.816 Spondylosis without myelopathy or radiculopathy, lumbar region (principal)
CPT/HCPCS: 64493; 64494

== ENCOUNTER 2024-12-17 11:06 | Outpatient (AMB) | payer MEDICARE, MEDICAID, SELFPAY ==
--- NOTE | 2024-12-17 11:40 | MHC.OFFVIS ---
Vital Signs 12/17/24 11:41 Height 6 ft 1 in Weight 181 lb BMI 23.9 BP 130/68 Blood Pressure Location Lt brachial Position Sitting Respiration 16 Pulse 62 Pulse Source Pulse Oximeter Pulse Oximetry (%) 98 Oxygen Delivery Method Room Air Intake Visit Reasons: S/P Bilateral Diagnostic L3-L4-L5 MBB Scouring Pads Supervisor Required: No Allergies No Known Allergies Allergy (Verified 12/17/24 11:43) Medication List - Last Reconciled 12/17/24 by Marilu Rincon LPN amlodipine 5 mg PO BID cholecalciferol (vitamin D3) 50 mcg PO DAILY clonidine HCl 0.2 mg PO BID diazepam (Valium) 0.5 mg PO BID PRN olmesartan 40 mg PO DAILY rosuvastatin (Crestor) 40 mg PO DAILY tamsulosin 0.4 mg PO BEDTIME tirzepatide (Mounjaro) mg subcut HPI HPI S/P Bilateral Diagnostic L3-L4-L5 MBB: Details: History of Present Illness The patient is a 74-year-old male presenting with chronic pain management issues. He reports having undergone diagnostic medial branch blocks, which provided approximately five and a half hours of significant >90% pain relief, allowing him to function better during that period. The patient has osteoarthritis in his shoulders, described as [id number], leading to significant discomfort and difficulty sleeping. He has been advised against shoulder replacement due to concerns about muscle loss and further complications. The patient also suffers from osteoarthritis in his knees, which has been exacerbated by ineffective orthotics. He has experienced knee pain for several years, and previous attempts to manage it with orthotics have worsened the condition. Insomnia is a significant issue for the patient, primarily due to pain in his shoulders and knees, which prevents him from sleeping comfortably. He has expressed a need for medication to aid sleep, such as Oxycodone, due to the severity of his pain. Pain Description - Pain relief from medial branch blocks lasted approximately five and a half hours. - Shoulder pain described as [id number], causing significant discomfort and sleep disturbance. - Knee pain exacerbated by ineffective orthotics, leading to increased discomfort. - Insomnia due to pain in shoulders and knees, impacting sleep quality. Physical Exam - Appears afebrile. - Alert and oriented. - Mood and affect appropriate. - Follows and participates in conversation appropriately. Results Pain Management - Affect: Pain significantly impacts sleep and daily functioning, causing distress. - Analgesia: Medial branch blocks provided temporary relief; patient requests Oxycodone for sleep. - Adverse Effects: Concerns about muscle loss with certain treatments. - Activities of Daily Living: Pain interferes with sleep and mobility, affecting quality of life. - Aberrant Drug Related Behaviors: Patient has seen multiple doctors for pain management, raising concerns. [facility] Medical History (Updated 01/17/24 @ 08:29 by Feliberto Delgadillo MD) Pre-diabetes BRIANA (obstructive sleep apnea) BPH (benign prostatic hyperplasia) Hyperlipidemia Hypertension Surgical History (Updated 12/28/23 @ 10:24 by Leslie Mattson RN) History of orthopedic surgery H/O hernia repair History of knee replacement Social History Are you a primary child adolescent care to a significant other at home: No Do you presently have visiting nurse or other home services: No Patient Tobacco Use Status: Never used Tobacco Physical Exam Vital Signs: Last Vital Signs Pulse 62 12/17/24 11:41 Resp 16 12/17/24 11:41 BP 130/68 12/17/24 11:41 Pulse Ox 98 12/17/24 11:41 Oxygen Delivery Method Room Air 12/17/24 11:41 BMI result Body Mass Index 23.9 Assessment & Plan Assessment & Plan (1) Vertebrogenic low back pain: Code(s): M54.51 - Vertebrogenic low back pain Category: Medical (2) Lumbar spondylosis: Code(s): M47.816 - Spondylosis without myelopathy or radiculopathy, lumbar region Category: Medical (3) Chronic shoulder pain: Code(s): M25.519 - Pain in unspecified shoulder; G89.29 - Other chronic pain Category: Medical Plan Plan Patient was informed and verbally consented to the use of an ambient scribe for clinic note documentation during this visit. 1. Lumbar spondylosis lumbar spondylosis - Plan to repeat diagnostic medial branch blocks L3, L4, L5 to confirm reproducibility of pain relief. - Consideration of pain management options, including potential use of Oxycodone for sleep. We will provide a 1 time short script of 10 pills. 2. Osteoarthritis Of The Knees - Discussion of ineffective orthotics and need for proper fitting to alleviate knee pain. Discussion Notes During the visit, we discussed the patient's ongoing pain management challenges, particularly the effectiveness of medial branch blocks and the potential need for repeat procedures to confirm pain relief. We also addressed the patient's insomnia related to pain and considered the use of Oxycodone as a temporary measure to improve sleep quality. The patient expressed concerns about previous orthotic interventions worsening knee pain, and we discussed the importance of proper fitting orthotics. Patient Instructions - Follow up for repeat medial branch blocks as scheduled. - Use prescribed medications as directed to manage pain and improve sleep. - Consider consulting with an orthotic specialist for proper fitting orthotics to alleviate knee pain. Medications: New oxycodone Partial Fill upon patient request. 5 mg PO BID PRN 10 tabs 0RF pain Coding Level of Care Code Est Pt Level 4 (39514) Diagnoses Vertebrogenic low back pain M54.51 Lumbar spondylosis M47.816 Chronic shoulder pain M25.519; G89.29
[2024-12-17 11:41] VITALS: BP 130/68; PULSE 62; RESP 16; O2SAT 98; BMI 23.9
--- OUTSIDE RECORDS SUMMARY | 2024-12-17 14:02 | XMS_ITS | Encounter Summary ---
Author Organization [facility] Address [address] [place] [address] Phone Care Team Providers Care Water Treatment Operator Name Role Phone Ja Holley MD Primary Care Provider Encounter Details Date Type Department Care Team (Late st Contact Info) Description 02/24/2024 Documentation Only [facility] [place], [address] [place] [address] Laina Mun[place], [place] [address] [place] [address] Social History Tobacco Use Types [...] on filedocumented in this encounter Care Teams Water Treatment Operator Relationship Specialty Start Date End Date Ja Holley MD [address] [place] [place] [address], [address] [place] [address] PCP - General Internal Medicine 02/21/24 documented as of this encounter
--- OUTSIDE RECORDS SUMMARY | 2024-12-17 14:02 | XMS_ITS | Encounter Summary ---
Author Organization [facility] Address [address] [place] [address] Phone Care Team Providers Care Burrer Machine Name Role Phone Ja Holley MD Primary Care Provider Encounter Details Date Type Department Care Team ([facility] st Contact Info) Description 02/21/2024 Documentation Only [facility] [place], [address] [place] [address] [place], [place] [address] [place] [address] Social History Tobacco Use Types [...] on filedocumented in this encounter Care Teams Burrer Machine Relationship Specialty Start Date End Date Ja Holley MD [address] [place] [address], [address] [place] [address] PCP - General Internal Medicine 02/21/24 documented as of this encounter
--- OUTSIDE RECORDS SUMMARY | 2024-12-17 14:02 | XMS_ITS | Clinical Summary ---
Author Organization [facility] Address [address] [place] [address] Phone Care Team Providers Care Outside Residential Sales Professional Name Role Phone Ja Holley MD Primary Care Provider Allergies No known active allergies Medications olmesartan (Benicar) 40 MG tablet Take 1 tablet (40 mg total) by mouth 1 (one) time each day 30 tablet 5 5 Active amLODIPine (NORVASC) 5 MG tablet Take 1 tablet (5 mg total) by mouth every night 90 tablet 3 5 12/15/19 26 Active amLODIPine (NORVASC) 5 MG tablet Take 1 tablet (5 mg total) by mouth at bed time 30 tablet 5 5 12/15/19 25 Discontinued Active Problems Problem Noted Date Diagnosed Date Essential (primary) hypertension 03/07/2024 Encounters Date Type Department Care Team Description 12/13/2024 Refill [facility], - [address] [place] [address] Nathan Bacon MD from Last [...] to 49 Years) Discontinued 12/27/2019, 12/16/2016 Insurance Medicare Medicaid [place] * Guarantor: Albert Green Account Type Relation to Patient Date of Phone Billing Address Personal/Family Self [address] [place] [address] * Guarantor: Albert Green Account Type Relation to Patient Date of Phone Billing Address Personal/Family Self [address] [place] [address] Care Teams Outside Residential Sales Professional Relationship Specialty Start Date End Date Ja Holley MD [address] [place] [address], [address] [place] [address] PCP - General Internal Medicine 02/21/24
--- OUTSIDE RECORDS SUMMARY | 2024-12-17 14:02 | XMS_ITS | Encounter Summary ---
Author Organization [facility] Address [address] [place] [address] Phone Care Team Providers Care Janitorial Manager Name Role Phone Ja Holley MD Primary Care Provider Encounter Details Date Type Department Care Team (Late st Contact Info) Description 03/16/2024 Documentation Only [facility] [place], [address] [place] [address] Manuela Torres [address] [place] [address] Social History Tobacco Use Types [...] on filedocumented in this encounter Care Teams Janitorial Manager Relationship Specialty Start Date End Date Ja Holley MD [address] [place] [address], [address] [place] [address] PCP - General Internal Medicine 02/21/24 documented as of this encounter
--- OUTSIDE RECORDS SUMMARY | 2024-12-17 14:02 | XMS_ITS | Encounter Summary ---
Author Organization [facility] Address [address] [place] [address] Phone Care Team Providers Care Hematology Supervisor Name Role Phone Ja Holley MD Primary Care Provider Encounter Details Date Type Department Care Team (Late st Contact Info) Description 07/19/2024 Documentation Only [facility] [place], [address] [place] [address] Manuela Torres [address] [place] [address] Social History Tobacco Use Types [...] on filedocumented in this encounter Care Teams Hematology Supervisor Relationship Specialty Start Date End Date Ja Holley MD [address] [place] [address], [address] [place] [address] PCP - General Internal Medicine 02/21/24 documented as of this encounter
--- OUTSIDE RECORDS SUMMARY | 2024-12-17 14:02 | XMS_ITS | Encounter Summary ---
Author Organization [facility] Address [address] [place] [address] Phone Care Team Providers Care Technical Support Agent Name Role Phone Ja Holley MD Primary Care Provider Encounter Details Date Type Department Care Team (Late st Contact Info) Description 07/19/2024 Documentation Only [facility] [place], [address] [place] [address] Manuela Torres [address] [place] [address] Social History Tobacco Use Types [...] on filedocumented in this encounter Care Teams Technical Support Agent Relationship Specialty Start Date End Date Ja Holley MD [address] [place] [address], [address] [place] [address] PCP - General Internal Medicine 02/21/24 documented as of this encounter
--- OUTSIDE RECORDS SUMMARY | 2024-12-17 14:03 | XMS_ITS | Encounter Summary ---
Author Organization [facility] [place], Address [address] [place] [address] Phone Care Team Providers Care Audiometric Technician Name Role Phone Ja Holley MD Primary Care Provider [phone] Reason for Visit * Reason Comments Med Refill Encounter Details Date Type Department Care Team (Late st Contact Info) Description 12/13/2024 [facility]ill [facility], [facility] [address] [place] [phone] Nathan Bacon MD [address] [place] [address] [place] [address] Social History Tobacco Use Types Packs/Day Years [...] on filedocumented in this encounter Care Teams Audiometric Technician Relationship Specialty Start Date End Date Ja Holley MD [address] [place] [address], [address] [place] [address] PCP - General Internal Medicine 02/21/24 documented as of this encounter
--- OUTSIDE RECORDS SUMMARY | 2024-12-17 14:03 | XMS_ITS | Encounter Summary ---
Author Organization [facility] Address [address] [place] [address] Phone Care Team Providers Care Tailor Helper Name Role Phone Ja Holley MD Primary Care Provider Encounter Details Date Type Department Care Team (Late st Contact Info) Description 05/24/2024 Documentation Only [facility] [place], [address] [place] [address] [place] [address] [place] [address] Social History Tobacco Use Types [...] on filedocumented in this encounter Care Teams Tailor Helper Relationship Specialty Start Date End Date Ja Holley MD [address] [place] [address], [address] [place] [address] PCP - General Internal Medicine 02/21/24 documented as of this encounter
== END 2024-12-17 12:21 | disposition home or self-care (01) ==
PROVIDERS: PCP Internal Medicine; Visit Provider Internal Medicine
DX: M54.51 Vertebrogenic low back pain (principal); M47.816 Spondylosis without myelopathy or radiculopathy, lumbar region; M25.519 Pain in unspecified shoulder; G89.29 Other chronic pain
CPT/HCPCS: 99214

== ENCOUNTER → 2024-12-17 11:06 | Outpatient (BNVA) | payer MEDICARE, MEDICAID, SELFPAY | PROVIDERS: PCP Internal Medicine; Visit Provider Internal Medicine | DX: M54.51 Vertebrogenic low back pain (principal); M47.816 Spondylosis without myelopathy or radiculopathy, lumbar region; M19.012 Primary osteoarthritis, left shoulder; M19.011 Primary osteoarthritis, right shoulder; M17.0 Bilateral primary osteoarthritis of knee; G47.00 Insomnia, unspecified | CPT/HCPCS: 99212 ==

== ENCOUNTER 2025-01-31 06:30 | Outpatient (REF) | payer MEDICARE, MEDICAID, SELFPAY ==
--- OUTSIDE RECORDS SUMMARY | 2006-04-20 | XMS_ITS | Encounter Summary ---
Author Organization [facility] Address [address] [facility] [address] [place] [address] Phone Care Team Providers Care Senior Controls Technician Name Role Phone Unavailable Primary Care Provider Unavailabl e Encounter Details Date Type Department Care Team (Late st Contact Info) Description 04/20/2006 Hospital Encounter [facility] [address] [place] [address] Reese Villegas PA-C [address] [facility] [place] [address] [email or web address] Social History Tobacco Use Types Packs/Day Years Used Date Smoking Tobacco: Never Smokeless Tobacco: Never Alcohol Use Standard Drinks/Week Comments Not Currently 0 (1 standard drink = 0.6 oz pur e alcohol) few times a year Child or Family Care Answer Date Record ed Do you have problems with on e of the following making it difficult for you to work, study, or receive health care? No 01/02/2025 Education Answer Date Recorded Are you interested in more education? Not on francisca e 07/26/2022 Are you concerned about learning? Not on file 07/26/2022 No 07/26/2022 No 07/26/2022 Food Answer Date Recorded Within the past 6 months we worried whether our food would run out before we got money to buy more. Sometimes True 025 Within the past 6 months the food we bought just didn't last and we didn't have enough money to get more. Never True 12/22 Residential Stability Answer Date Recor ded What is your housing situation today? I have bolivar toro 01/02/2025 How many times have you move d in the past 12 months? Zero (I did not move) 01/02/2025 Paying for Meds Answer Date Recorded Do you have trouble paying for medicines? No 01/02/2025 Paying Utility Bills Answer Date Record ed Do you have trouble paying your heating or elect ricity bill? No 01/02/2025 Transportation Answer Date Recorded Has the lack of transportati on kept you from medical appointments or from getting medications? No 01/02/2025 Unemployment Answer Date Recorded Are you currently unemployed or working on a part-time or temporary basis, and looking for work? Yes 07/23/2020 Digital Access Answer Date Recorded No 01/02/2025 Yes 01/02/2025 Do you have reliable internet access at home? Ye s 01/02/2025 Do you have a device (e.g., phone, tablet, computer) with a working camera? Yes 01/02/2025 Intimate Partner Violence Answer Date R ecorded Are you denied basic needs s uch as food, clothing, or medical care? No 01/11/2025 In the past 12 months have y ou been in a relationship with a person who hurts, threatens, or tries to control you? No 01/11/2025 Are you denied basic needs s uch as food, clothing, or medical care? No 01/11/2025 In the past 12 months have y ou been in a relationship with a person who hurts, threatens, or tries to control you? 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 Wish to be (Past 1 Month) No 10/08/2023 10:04 PM EDT Antonia Berger RN 2. Non-Specific Active Suicidal Thoughts (Past 1 Month) No 10/08/2023 10:04 PM EDT Antonia Berger RN 6. Suicidal Behavior (Lifetime) No 10/08/2023 10:04 PM EDT Antonia Berger RN documented as of this encounter Plan of Treatment Upcoming Encounters Date Type Department Care Team (Late st Contact Info) Description 02/19/2025 3:00 PM EST Office Visit [address] [place] [address] Ja Holley MD [address] [place] [address], [address] [place] [address] 04/30/2025 10:30 AM EDT Office Visit [facility] [address] [place] [address] Fredi Elaine DO [address] [place] [address] 05/06/2025 12:00 PM EDT Appointment Department of Radiation Oncology [address] [place] [address] Lincoln Burton NP [address] [place] [address] [email or web address] 07/22/2025 9:40 AM EDT Office Visit [facility] [address] [place] [address] 3rd Floor, [address] [place] [address] Asif Araiza MD, MS [address] [facility], [address] [place] [address] Scheduled Procedures Name Priority Associated Diagnoses Date/Ti mn COLONOSCOPY Gastroesophageal reflux disease with esophagitis without hemorrhage ESOPHAGOGASTRODUODENOSCOPY Gastroesophageal reflux disease with esophagitis without hemorrhage documented as of this encounter Procedures Procedure Name Priority Date/Time Associated Diagnosis Comments XR LOWER EXTREMITY OUTSIDE (NO INTERPRETATION) Routine 04/20/2006 12:00 AM EST documented in this encounter Results * XR Lower Extremity Outside (No Interpretation) (04/20/2006 12:00 AM EST) Narrative [facility] [place] IMG INTERFACES - 11/22/2019 1:12 PM EDT This study is for PACS storage only and not for interpretation. us Reese Villegas PA-C IMG OUTSIDE IMAGING W/OUT IN TERPRETATION Final Result [facility] IMG INTERFACES documented in this encounter Visit Diagnoses Not on filedocumented in this encounter Additional Health Concerns Infection Onset Date Last Indicated Resolved Time CoV-Exposed Comment:Recent close contact documented in the COVID-19 PCR/PRO order 12/04/2020 12/18/2020 12/19/2020 1:25 AM E DT CoV-Risk 01/21/2022 01/21/2022 02/01/2022 1:32 AM EST Resp-Risk 01/25/2025 01/25/2025 documented as of this encounter Additional Source Comments The information contained in this document represents components of the legal health record. It is not the complete legal health record.[facility]
--- OUTSIDE RECORDS SUMMARY | 2025-01-22 08:30 | XMS_ITS | Encounter Summary ---
Author Organization [facility] Address [address] [place] [address] Phone Care Team Providers Care Military Professional Name Role Phone Emile Blake MD Unavailable Ja Holley MD Primary Care Provider [phone] Frank Mak MD Unavailable [phone] Jamari Ellison DO Unavailable Fredi Unger MD Unavailable Elroy Calderon MD Unavailable [phone] Ja Holley MD Unavailable Bartolo Morgan MD Unavailable Maximino Dorado MD, PhD Unavailable Lincoln Thomson MD Unavailable Dhaval Slater MD Unavailable Encounter Details Date Type Department Care Team (Late st Contact Info) Description 01/22/2025 8:30 AM EST Hospital Encounter Department of Radiation Oncology [address] [facility] [address] [place] [address] Lincoln Burton, INSOLE TACK PULLER HAND [address] [place] [address] [email or web address] Social History Tobacco Use Types Packs/Day Years [...] got money to buy more. Sometimes True Within the past 6 months the food we bought just didn't last and we didn't have enough money to get more. Never True 12/22 Residential Stability Answer Date Recor ded What is your housing situation today? 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 Radiation Oncology Remote Established Patient Note ? Name: ??Albert Green : ??1950 MRN: ?[id number] Date of Completion:?HDR monotherapy: May 26, 2023 Care Team: Patient Care Team Relationship Specialty Notifications Start End Ja Holley MD PCP - General Internal Medicine 07/23/20 Address: [address] [place] [address], [address] [facility] [address] Emile Blake MD Gastroenterology 10/31/18 Address: [address] [place] [address] Frank Mak MD Physical Medicine and Rehabilitation 11/14/20 Address: [address] [facility] [address] Jamari Ellison DO Orthopedic Surgery 07/24/21 Address: 4 [facility] [address] Fredi Unger MD Ophthalmology 07/24/21 Address: [address] [facility] 2 [facility] [address] Elroy Calderon MD Urology 10/27/21 Address: [address] [facility], [address] [facility] [address] Bartolo Morgan MD Psychiatry 10/08/22 Address: [address] [address] Maximino Dorado MD, PhD Radiation Oncology 05/03/23 Address: [address] [place] [address] Ja Holley MD Insurance Assigned Provider 05/28/23 Address: [address] [facility], [address] [facility] [address] Lincoln Thomson MD Physical Medicine and Rehabilitation 06/26/23 Address: [address] [facility], 2nd Floor [facility] [address] Dhaval Slater MD Neurosurgery 07/07/23 Address: [address] [place] [address] Dr [facility] [address] Date of Completion: May 26, 2023 Treatment Intent: Radical Concise Clinical History: 72 y.o. male with prior Rezium procedure, and a cT1c, iPSA 5.11, GS 3+4 (5/12 cores), prostate cancer. HDR mono (13.5 GY x 2). The patient presents for PSA and treatment related toxicity monitoring Overall Oncology Management Plan: HDR monotherapy Today's visit was conducted for routine follow-up to discuss his PSA &/or imaging results and management of his prostate cancer History of Present Illness:? Oncology History Overview Note 2014: Flomax without benefit. Stopped due to dizziness. Also stopped proscar. No retention. 07/12/2016 PSA: 1.560 06/08/2018 PSA: 2.1, prostatis, 09/27/2018 PSA: 2.2, 01/28/2019 PSA: 2.77 07/20/19: Rezum procedure with Dr. Arellano. 02/29/2020 PSA: 3.8, 04/24/2020 PSA: 3.9 07/26/2020: MRI of the prostate showed a 1.2 cm PI-RADS 4 lesion at the left posterior peripheral zone at the base. The volume of the gland at that time was 24 cc. 09/18/2020: [facility]SY [facility] review showed a RIGHT BASE LATERAL, RIGHT BASE MEDIAL: Benign prostatic tissue. RIGHT MID LATERAL: PROSTATIC ADENOCARCINOMA, Opheim score 3+4=7 (Grade Group 2), involving 50% of one (1) core. Tatyana pattern 4 comprises 10% of the tumor. No perineural invasion. RIGHT MID MEDIAL: PROSTATIC ADENOCARCINOMA, Tatyana score 3+4=7 (Grade Group 2), involving 20% of one (1) core. Opheim pattern 4 comprises 30% of the tumor. No perineural invasion. RIGHT APEX LATERAL: PROSTATIC ADENOCARCINOMA, Opheim score 3+3=6 (Grade Group 1), involving 15% of one (1) core. No perineural invasion. RIGHT APEX MEDIAL: Benign prostatic tissue. TARGETED #1 LEFT BASE: Atypical small acinar proli feration. LEFT BASE LATERAL: PROSTATIC ADENOCARCINOMA, Tatyana score 3+3=6 (Grade Group 1), involving 10% of one (1) core. Perineural invasion is present. LEFT BASE MEDIAL: PROSTATIC ADENOCARCINOMA, Tatyana score 3+3=6 (Grade Group 1), involving 5% of one (1) core. No perineural invasion. LEFT MID LATERAL, LEFT MID MEDIA, LEFT APEX LATERAL & LEFT APEX MEDIAL: Benign prostatic tissue. 12/10/2020 PSA: 4.6 03/25/2021 PSA: 4.30, 06/25/2021 PSA: 3.95 12/28/2021 PSA: 3.57 12/23/2022 PSA: 5.11 01/31/2023: TRUSP Ultrasound Biopsy ([facility]) showed 30 c gland. 5/12 cores positive, of which 2 cores from Right Lateral Base and Right Lateral Manila were with Tatyana's Score (3+4) =7. GS3+3 in RRM, RMA, and LLB. 05/16/2023 Brachy_HDR to Brachy_ProsHDR_Mono, Dose: 1350 cGy Fx 1:2 05/26/2023 Brachy_HDR to Brachy_ProsHDR_Mono, Dose: 1350 cGy Fx 2:2 total dose: 2700 cGy 08/30/2023 PSA: 1.83, 12/15/2023 PSA: 2.87, 01/23/2024 PSA: 2.1 05/16/2024 PSA: 1.56 05/19/2024 CT Abdomen/Pelvis With Contrast ([facility]) No CT evidence for acute abdominal/pelvic process including no ascites to account for bloating. Colonic diverticulosis without evidence for acute diverticulitis.Ill-defined hypodense lesion within segment 3 of the liver measuring 13 mm is nonspecificand indeterminate. Contrast-enhanced abdominal MRI in the next 30 days should be considered for further assessment. Heterogeneous left adrenal nodule measuring 3.4 cm, mildly enlarged from 03/08/2017.Given slow growth, this is likely a benign nodule but could also be assessed/characterize on the above recommended MRI. Other findings, as above, including moderate size hiatal hernia, bilateral renal cysts, and postoperative changes status post interval umbilical and bilateral inguinal hernia repairs. 07/30/2024 DXA Spine, Hip, and Forearm ([facility]) Impression: Interpretation: Normal bone mineral density. 08/30/2024: PSA- 0.89 Prostate cancer 10/09/2020 Initial Diagnosis Prostate cancer The HPI above is from previous notes as clinical reference and update during this visit today ?Interval History:? Gastroesophageal reflux disease and caffeine sensitivity - Severe GERD and gastrointestinal symptoms attributed to caffeine consumption - Experimented with various types of coffee, including low acid and decaffeinated options - Elimination of caffeinated coffee resulted in resolution of GERD symptoms - Currently maintains symptom control with decaffeinated coffee - Consumes two to three cups of a mixture of caffeinated/decaffeinated coffee per day, spread throughout the day typically up to 9 PM at night - Uses herbal tea as an alternative to caffeinated beverages in the evening Psychological distress - Experiences anxiety and depression - Seeking treatment from his psychiatrist about anti-anxiety and anti-depression medications Impression and Plan of Care:? I communicated with Mr Green via telephone-only technology ?. The total time spent in this remote visit ?was 25 minutes ? Greater than 50% of this visit was spent on counseling, discussion and/or coordination of care as documented. He was made aware that in-person care is available in case of emergencies and was consented for virtual care, including informing the patient that insurance will be billed, and that in-person care is available in case of emergencies or as needed otherwise, was discussed at the time of scheduling. I discussed the following with and answered his questions to his apparent satisfaction:?? Prostate cancer control to date: Status post HDR Brachytherapy w/o ADT completed in May 2023 withhis January 21, 2025 PSA decreased to 2.06 compared to the PSA done on December 15, 2024 PSA was 2.4up from his PSA josue done on August 30, 2024 of 0.89 indicating an ongoing biochemical remission & new post-treatment josue . We discussed that after radiation alone we typically see a gradual redu ction in the PSA over a 24-36 month period. He understands that following radiation alone typicallybetween 12-24 months post radiation alone up to 40% of men experience a transient bump in the PSA level. We discussed the RTOG-ARLET definition of biochemical failure. He understands that following radiotherapy, there is still noncancerous prostatic tissue that produces PSA. We will continue monitoring his PSA to evaluate the rate of change, when his PSA is > 3.6, we will order a PSMA PET scanto identify whether the source of biochemical recurrence was local vs. systemic recurrence. His next PSA is due by May 06, 2025 Labs at [facility], orders are in. Post-treatment radiation therapy +/- Androgen deprivation monitoring schedule: For qfh-[id number]-treatment follow-up (PSA, testosterone and toxicity monitoring) every 3-4 months in the first two yearsafter completion of therapy, every 6 months, years 3-5, and yearly after that. If he needs BCR restaging and If he has a local recurrence, we will discuss the role of salvage local radiotherapy +/- ADT. if he has a metastatic recurrence, we will discuss whether radiotherapy to the oligometastatic site(s) is appropriate in addition to ADT with consideration of early abiraterone by Medical Oncology If he has BCR only, we will initially monitor his PSADT and discuss his options. Repeating his PSMA PET when his PSA reaches 1.0 above initial restaging PSA?? vs Establishing a PSA threshold to transition to Medical Oncology for initiating androgen therapy based on PSA dynamics. Continued PSADT monitoring until his PSADT drops to less than 12 months indicating a change from indolent to a more aggressive disease at that point we would initiate restaging and arrange for definitive salvage therapy. *ADT type and duration is a decision by Medical Oncology Gastroesophageal reflux disease (GERD)-Chronic GERD exacerbated by caffeine intake. Symptoms resolved with cessation of caffeinated coffee and improved with decaffeinated coffee. Caffeine identified as the primary trigger rather than coffee acidity. He continues to drink caffeinated coffee - Continue to avoid caffeinated coffee. - Use decaffeinated coffee as needed. - Consider herbal tea as an alternative to caffeinated beverages. Emotional wellbeing: Exacerbation of baseline anxiety and depression with the elevation in the PSA.Assured him this is very common in 40% of men and will trend back downward and we will follow this closely. Encouraged him to continue to work with his psychiatrist around medication to improve his anxiety and depression that are reducing his quality of life. Also encouraged him strongly to discussreferral for cognitive behavioral therapy to break the intrusive thoughts and feel he may benefit greatly from this approach. Cost-effective medications: Patients benefit from using discount sites https://www.Enevo/ or https://www.rxsaver.com/ or https://www.Waddapp.com.com/ Prostate Rich MABLE [facility] Department of Radiation Oncology [address] [place], [place] [id number] Office: [phone] Email: [email or web address] Website: [facility] - [facility] ([email or web address] area medical [email or web address] Protect Me) WB news Story:Link [facility] Medications: Current Outpatient Medications Ordered in Epic Medication Sig albuterol 90 mcg/actuation inhaler Inhale 2 puffs into the lungs every 6 (six) hours as needed for wheezing. (Patient not taking: Reported on 01/11/2025) amLODIPine (NORVASC) 5 MG tablet Take 5 mg by mouth daily. cholecalciferol (VITAMIN D3) 2,000 unit capsule TAKE ONE CAPSULE BY MOUTH EVERY DAY FREESTYLE 28 gauge lancets 1 each by Miscellaneous route daily. FREESTYLE LITE Strp strips 1 each by Miscellaneous route daily. olmesartan (BENICAR) 40 mg tablet Take 40 mg by mouth. olopatadine (PATADAY) 0.2 % Drop as needed. pantoprazole (PROTONIX) 20 MG tablet TAKE ONE TABLET BY MOUTH EVERY DAY rosuvastatin (CRESTOR) 40 MG tablet TAKE ONE TABLET BY MOUTH EVERY DAY sildenafiL (VIAGRA) 25 mg tablet Take 1-4 tablets (25-100 mg total) by mouth daily as needed (1 hr prior to sexual activity. No more than 100 mg in a 24-hour period). (Patient not taking: Reported on01/11/2025) tamsulosin (FLOMAX) 0.4 mg Cap TAKE ONE CAPSULE BY MOUTH EVERY DAY. START 1 WEEK BEFORE PROCEDURE Laboratory Results: Please see updated HPI Lab Results Component Value Date/Time PSA Monitoring 2.06 01/21/2025 11:04 AM PSA 2.40 12/15/2024 12:26 PM No orders of the defined types were placed in this encounter. Future Appointments Date Time Provider Department Center 02/19/2025 3:00 PM Ja Holley MD [facility]GPCNFM None 04/30/2025 10:30 AM Fredi Elaine DO CMGENDOCRIN None 07/22/2025 9:40 AM Asif Araiza MD, MS CMGCARDATW None . documented in this encounter Plan of Treatment Upcoming Encounters Date Type Department Care Team (Late st Contact Info) Description 02/19/2025 3:00 PM EST Office Visit [address] [place] [address] Ja Holley MD [address] [place] [address], [address] [place] [address] 04/30/2025 10:30 AM EDT Office Visit [facility] [address] [place] [address] [place] [address] Fredi Elaine DO [address] [place] [address] 05/06/2025 12:00 PM EDT Appointment Department of Radiation Oncology [address] [place] [address] Lincoln Burton NP [address] [place] [address] [email or web address] 07/22/2025 9:40 AM EDT Office Visit [facility] [address] [place] [address] Dr [address] Floor, [address] [place] [address] Asif Araiza MD, MS [address] [facility], [address] [address] Scheduled Procedures Name Priority Associated Diagnoses Date/Ti ny COLONOSCOPY Gastroesophageal reflux disease with esophagitis without hemorrhage ESOPHAGOGASTRODUODENOSCOPY Gastroesophageal reflux disease with esophagitis without hemorrhage documented as of this encounter Visit Diagnoses Diagnosis Malignant neoplasm of prostate- Primary Anxiety about health documented in this encounter Additional Health Concerns Infection Onset Date Last Indicated Resolved Time Resp-Risk 01/25/2025 01/25/2025 Assessment Noted Time PHQ-9 Depression Total Score: 19 025 2:55 PM EDT PHQ-2 Depression Total Score: 4 01/03/20 25 2:34 PM EST documented as of this encounter Care Teams Military Professional Relationship Specialty Start Date End Date Ja Holley MD [address] [place] [address], [address] [place] [address] PCP - General Internal Medicine 07/23/20 Emile Blake MD [address] [place] [address] Gastroenterology 10/31/18 Frank Mak MD [address] [place] [address], [address] [place] [address] [email or web address] Physical Medicine and Rehabilitation 11/14/20 Jamari Ellison DO [address] [place] [address] Orthopedics & Sports Medicine, [facility] [place] [address] Orthopedic Surgery 07/24/21 Fredi Unger MD [address] [place] [address] Ophthalmology 07/24/21 Elroy Calderon MD [address] [place] [address], [address] [address] Urology 10/27/21 Ja Holley MD [address] [place] [address], [address] [place] [address] [email or web address] Insurance Assigned Provider 05/28/23 Bartolo Morgan MD [address] [place] [address] Psychiatry 10/08/22 Maximino Dorado MD, PhD [address] [place] [address] [email or web address] Radiation Oncology 05/03/23 Lincoln Thomson MD [address] [place] [address], 2[address] [place] [address] [email or web address] Physical Medicine and Rehabilitation 06/26/23 Dhaval Slater MD [address] [place] [address] [address] [place] [address] Neurosurgery 07/07/23 documented as of this encounter Additional Source Comments The information contained in this document represents components of the legal health record. It is not the complete legal health record.[facility]
--- NOTE | ~2025-01-31 | FL_ITS ---
EXAMINATION: FL GUIDANCE ONLY HISTORY: M47.816 - Spondylosis without myelopathy or radiculopathy, lumbar region COMPARISON: None available. TECHNIQUE: Fluoroscopy time: 11 seconds. Cumulative Dose: 2.50 mGy. DAP: 404.50 mGycm2 Images: 3. FINDINGS: Fluoroscopic spot films of the lumbar spine demonstrate needles and contrast material in the regions of the bilateral L3-4, L4-5, and L5-S1 facet joints. FL/FL guidance in treatment room IMPRESSION: Fluoroscopy during procedure. Please see procedure report for additional information. Electronically signed by: Asif Garcia MD 01/31/2025 02:31 PM [facility]
--- OUTSIDE RECORDS SUMMARY | 2025-01-31 06:33 | XMS_ITS | Encounter Summary ---
Author Organization [facility] Address [address] [place] [address] Phone Care Team Providers Care Leasing Sales Consultant Name Role Phone Leonel Alegria MD Primary Care Provider [phone] Emile Blake MD Unavailable Andrei Coon DO Primary Care Provider [phone] Lupis Copeland MD Primary Care Provider Gordon Moralez MD Primary Care Provider [phone] Ja Holley MD Primary Care Provider [phone] Frank Mak MD Unavailable Alfonzo Perkins MD Unavailable Rosalia Vargas RN Unavailable [phone] Jamari Ellison DO Unavailable [phone] Fredi Unger MD Unavailable [phone] Elroy Calderon MD Unavailable [phone] Ja Holley MD Unavailable Bartolo Morgan MD Unavailable [phone] Molly Spring RN Unavailable [email or web address] Criss Cosme Unavailable [phone] Maximino Dorado MD, PhD Unavailable [phone] Maximino Dorado MD, PhD Unavailable [phone] Lincoln Thomson MD Unavailable [phone] Dhaval Slater MD Unavailable Reason for Referral * Physical Therapy (Routine) - Closed Specialty Diagnoses / Procedures Referred By Glory pablo Referred To Contact Physical Therapy Diagnoses Encounter for rehabilitation System, Provider Not In, PhD Partners [phone] [place] [address] [address] [place] [address] Phone: tel: Referral ID Status Reason Start Date Expiration Date Visits Re quested Visits Authorized [id number] Closed 11/07/2017 02/20/2018 99 99 Encounter Details Date Type Department Care Team (Latest Contact Info) Description 11/07/2017 Transcribe Orders [facility] [address] [place] [address] [place] [address] [email or web address] Encounter for rehabilitation (Primary Dx) [...] Description 02/19/2025 3:00 PM EST Office Visit [facility] [address] [place] [address] Ja Holley MD [address] [place] [address], [address] [place] [address] 04/30/2025 10:30 AM EDT Office Visit [facility] [address] [place] [address] Fredi Elaine DO 22 [place] [address] 05/06/2025 12:00 PM EDT Appointment Department of Radiation Oncology [address] [place] [address] Lincoln Burton, MABLE [address] [place], [place] [address] [address] [email or web address] 07/22/2025 9:40 AM EDT Office Visit [facility] [address] [place] [address] 3rd Floor, [address] [place] [address] Asif Araiza MD, MS 22 [facility], [address] [place] [address] [email or web address] Scheduled Procedures Name Priority Associated Diagnoses Date/Ti me COLONOSCOPY Gastroesophageal reflux disease with esophagitis without hemorrhage ESOPHAGOGASTRODUODENOSCOPY Gastroesophageal reflux disease with esophagitis without hemorrhage Scheduled Referrals Name Type Priority Associated Diagnoses Orde r Schedule Ambulatory referral to [facility] Physical Therapy Outpatient Referral Routine Encounter for [...] 01/25/2025 01/25/2025 documented as of this encounter Care Teams Leasing Sales Consultant Relationship Specialty Start Date End Date [place] [address] [email or web address] PCP - General Internal Medicine 05/20/17 01/07/19 Andrei Coon DO [address] [place] [address] [email or web address] PCP - General Family Medicine 01/08/19 01/03/20 Lupis Copeland MD [address] [place] [address] [email or web address] PCP - General Family Medicine 01/04/20 06/09/20 Gordon Moralez MD [address] [place] [address] [email or web address] PCP - General 06/10/20 07/22/20 Ja Holley MD [address] [place] [address], [address] [place] [address] [email or web address] PCP - General Internal Medicine 07/23/20 Emile Blake MD [address] [place] [address] [email or web address] Gastroenterology 10/31/18 Frank Mak MD [address] [place] [address], [address] [place] [address] [email or web address] Physical Medicine and Rehabilitation 11/14/20 Alfonzo Perkins MD [address] [place] [address] Psychiatry 02/01/21 10/07/22 Rosalia Vargas RN [address] [place] [address] [email or web address] PHCM Custom Van Converter 02/12/21 03/10/21 Jamari Ellison DO [address] [place] [address] Orthopedics & Sports Medicine, [facility] [place] [address] Orthopedic Surgery 07/24/21 Fredi Unger MD [address] [place] [address] Ophthalmology 07/24/21 Elroy Calderon MD [address] [place] [address], [address] [place] [address] [email or web address] Urology 10/27/21 Ja Holley MD [address] [place] [address], [address] [place] [address] [email or web address] Insurance Assigned Provider 05/28/23 Bartolo Morgan MD [address] [place] [address] Psychiatry 10/08/22 Molly Spring RN [address] [address] [email or web address] PHCM Custom Van Converter 02/07/23 10/07/24 Criss Cosme [address] [place] [address] [email or web address] [facility] Community Health Worker 03/29/23 03/29/23 Maximino Dorado MD, PhD [address] [place] [address] [email or web address] [email or web address] Oncology 05/03/23 Maximino Dorado MD, PhD [address] [place] [address] [email or web address] Oncology 06/01/23 06/25/23 Lincoln Thomson MD [address] [place] [address], [facility] [place] [address] Physical Medicine and Rehabilitation 06/26/23 Dhaval Slater MD [address] [place] [address] [place] [address] Neurosurgery 07/07/23 documented as of this encounter Additional Source Comments The information contained in this document represents components of the legal health record. It is not the complete legal health record.[facility]
--- OUTSIDE RECORDS SUMMARY | 2025-01-31 06:33 | XMS_ITS | Encounter Summary ---
Author Organization [facility] Address [address] [place] [address] Phone Care Team Providers Care Lining Strap Closer Name Role Phone Emile Blake MD Unavailable Ja Holley MD Primary Care Provider Frank Mak MD Unavailable Alfonzo Perkins MD Unavailable Jamari Ellison DO Unavailable [phone] Fredi Unger MD Unavailable Elroy Calderon MD Unavailable [phone] Ja Holley MD Unavailable [phone] Bartolo Morgan MD Unavailable Molly Spring RN Unavailable [email or web address] Criss Cosme Unavailable [phone] Maximino Dorado MD, PhD Unavailable [phone] Maximino Dorado MD, PhD Unavailable [phone] Lincoln Thomson MD Unavailable [phone] Dhaval Slater MD Unavailable Encounter Details Date Type Department Care Team (Late st Contact Info) Description 03/27/2021 Ancillary Orders [facility] Orthopedics & Sports Medicine [address] [place] [address] [id number] Niya Jaimes MD [address] [place] [address] [facility] [address] [email or web address] Social History Tobacco Use Types Packs/Day Years [...] high school, GED, job training, learning the Guamanian language, technical skills, or developing parenting skills)? 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 file disabled Not on file Not on file Not on file documented as of this encounter Plan of Treatment Upcoming Encounters Date Type Department Care Team (Late st Contact Info) Description 02/19/2025 3:00 PM EST Office Visit [facility] [address] [place] [address] [place] [address] Ja Holley MD 22 [facility], [address] [place] [address] 04/30/2025 10:30 AM EDT Office Visit [facility] [address] [place] [address] [place] [address] Fredi Elaine DO 22 [place] [address] 05/06/2025 12:00 PM EDT Appointment Department of Radiation Oncology [address] [place] [address] Lincoln Burton NP [address] [place] [address] [email or web address] 07/22/2025 9:40 AM EDT Office Visit [facility] [address] [place] [address] 3rd Floor, [address] [place] [address] Asif Araiza MD, MS 22 [facility], [address] [place] [address] Scheduled Procedures Name Priority Associated Diagnoses Date/Ti sd COLONOSCOPY Gastroesophageal reflux disease with esophagitis without hemorrhage ESOPHAGOGASTRODUODENOSCOPY Gastroesophageal reflux disease with esophagitis without hemorrhage documented as of this encounter Visit Diagnoses Not on filedocumented in this encounter Additional Health Concerns Infection Onset Date Last Indicated Resolved Time CoV-Risk 01/21/2022 01/21/2022 02/01/2022 1:32 AM EST Resp-Risk 01/25/2025 01/25/2025 Assessment Noted Time PHQ-9 Depression Total Score: 23 021 8:56 AM EDT PHQ-2 Depression Total Score: 6 07/24/19 21 8:56 AM EDT documented as of this encounter Care Teams Lining Strap Closer Relationship Specialty Start Date End Date Ja Holley MD [address] [place] [address], [address] [place] [address] PCP - General Internal Medicine 07/23/20 Emile Blake MD [address] [place] [address] Gastroenterology 10/31/18 Frank Mak MD [address] [place] [address], [address] [place] [address] [email or web address] Physical Medicine and Rehabilitation 11/14/20 Alfonzo Perkins MD 45 [place] [address] Psychiatry 02/01/21 10/07/22 Jamari Ellison DO [address] [place] [address] [facility] [place] [address] Orthopedic Surgery 07/24/21 Fredi Unger MD [address] [place] [address] Ophthalmology 07/24/21 Elroy Calderon MD [address] [place] [address] [email or web address] Urology 10/27/21 Ja Holley MD [address] [place] [address], [address] [place] [address] [email or web address] Insurance Assigned Provider 05/28/23 Bartolo Morgan MD [address] [place] [address] Psychiatry 10/08/22 Molly Spring RN [address] [place] [address] [email or web address] Interlacer 02/07/23 10/07/24 Criss Cosme [address] [place] [address] [email or web address] [facility] Community Health Worker 03/29/23 03/29/23 Maximino Dorado MD, PhD [address] [place] [address] [email or web address] Radiation Oncology 05/03/23 Maximino Dorado MD, PhD [address] [place] [address] [email or web address] Radiation Oncology 06/01/23 06/25/23 Lincoln Thomson MD [address] [place] [address], 2nd [place] [address] [email or web address] Physical Medicine and Rehabilitation 06/26/23 Dhaval Slater MD [address] [place] [address] [place] [address] Neurosurgery 07/07/23 documented as of this encounter Additional Source Comments The information contained in this document represents components of the legal health record. It is not the complete legal health record.[facility]
--- OUTSIDE RECORDS SUMMARY | 2025-01-31 06:33 | XMS_ITS | Encounter Summary ---
Author Organization [facility] Address [address] [place] [address] Phone Care Team Providers Care Daycare Provider Name Role Phone Emile Blake MD Unavailable [phone] Andrei Coon DO Primary Care Provider [phone] Lupis Copeland MD Primary Care Provider Gordon Moralez MD Primary Care Provider Ja Holley MD Primary Care Provider [phone] Frank Mak MD Unavailable Alfonzo Prekins MD Unavailable Rosalia Vargas RN Unavailable [phone] Jamari Ellison DO Unavailable Fredi Unger MD Unavailable [phone] Elroy Calderon MD Unavailable [phone] Ja Holley MD Unavailable [phone] Bartolo Morgan MD Unavailable [phone] Molly Spring RN Unavailable [email or web address] Criss Cosme Unavailable [phone] Maximino Dorado MD, PhD Unavailable [phone] Maximino Dorado MD, PhD Unavailable [phone] Lincoln Thomson MD Unavailable [phone] Dhaval Slater MD Unavailable Reason for Referral * MRI/CAT Scan - Closed Specialty Diagnoses / Procedures Referred By Glory pablo Referred To Contact Radiology Diagnoses Voice hoarsenesses Dysphagia, unspecified type GERD without esophagitis Postnasal drip Vasomotor rhinitis Feeling of foreign body in throat Obstructive sleep apnea (adult) (pediatric) Procedures CT Neck CT Neck Arben Crews MD Phone: tel: fax: [email or web address] Referral ID Status Reason Start Date Expiration Date Visits Re quested Visits Authorized [id number] Closed 03/27/2019 03/26/2020 1 1 Encounter Details Date Type Department Care Team ([facility] Contact Info) Description 03/27/2019 Ancillary Orders Virtual Department 30 [place] [address] Arben Crews MD [address] [place] [address], [address] [place] [address] [email or web address] Voice hoarsenesses; Dysphagia, unspecified type; [...] Upcoming Encounters Date Type Department Care Team ([facility] Contact Info) Description 02/19/2025 3:00 PM EST Office Visit [facility] [address] [place] [address] Ja Holley MD 22 [facility], [address] [place] [address] 04/30/2025 10:30 AM EDT Office Visit [facility] [address] [place] [address] [place] [address] Fredi Elaine DO 22 [place] [address] 05/06/2025 12:00 PM EDT Appointment Department of Radiation Oncology [address] [place] [address] Lincoln Burton NP [address] [place] [address] [email or web address] 07/22/2025 9:40 AM EDT Office Visit [facility] [address] [place] [address] [address]rd Floor, [address] [place] [address] Asif Araiza MD, MS 22 [facility], [address] [place] [address] [email or web address] Scheduled Procedures Name Priority Associated Diagnoses Date/Ti sc COLONOSCOPY Gastroesophageal reflux disease with esophagitis without [...] documented as of this encounter Care Teams Daycare Provider Relationship Specialty Start Date End Date Andrei Coon DO [address] [place] [address] [email or web address] PCP - General Family Medicine 01/08/19 01/03/20 Lupis Copeland MD [address] [place] [address] [email or web address] PCP - General Family Medicine 01/04/20 06/09/20 Gordon Moralez MD [address] [address] [phone] ([email or web address] PCP - General 06/10/20 07/22/20 Ja Holley MD [address] [place] [address], [address] [place] [address] PCP - General Internal Medicine 07/23/20 Emile Blake MD [address] [place] [address] Gastroenterology 10/31/18 Frank Mak MD [address] [place] [address], [address] [place] [address] [email or web address] Physical Medicine and Rehabilitation 11/14/20 Alfonzo Perkins [place] [address] Psychiatry 02/01/21 10/07/22 Rosalia Vargas, RN 30 [place] [address] [facility] Airborne Electronics Analyst 02/12/21 03/10/21 Jamari Ellison DO [address] [place] [address] [facility] [place] [address] Orthopedic Surgery 07/24/21 Fredi Unger MD [address] [place] [address] Ophthalmology 07/24/21 Elroy Calderon MD [address] [place] [address], [address] [place] [address] [email or web address] Urology 10/27/21 Ja Holley MD [address] [place] [address], [address] [place] [address] [email or web address] Insurance Assigned Provider 05/28/23 Bartolo Morgan MD [address] [place] [address] Psychiatry 10/08/22 Molly Spring RN [address] [place] [address] [email or web address] Airborne Electronics Analyst 02/07/23 10/07/24 Criss Cosme [address] [place] [address] [email or web address] martín [facility] Community Health Worker 03/29/23 03/29/23 Maximino Dorado MD, PhD [address] [place] [address] [email or web address] Radiation Oncology 05/03/23 Maximino Dorado MD, PhD [address] [place] [address] [email or web address] Radiation Oncology 06/01/23 06/25/23 Lincoln Thomson MD [address] [place] [address], 2nd [place] [address] [email or web address] Physical Medicine and Rehabilitation 06/26/23 Dhaval Slater MD [address] [place] [address] Neurosurgery 07/07/23 documented as of this encounter Additional Source Comments The information contained in this document represents components of the legal health record. It is not the complete legal health record.[facility]
--- OUTSIDE RECORDS SUMMARY | 2025-01-31 06:33 | XMS_ITS | Encounter Summary ---
Author Organization [facility] Address [address] [place] [address] Phone Care Team Providers Care Mold Yard Worker Name Role Phone Leonel Alegria MD Primary Care Provider Emile Blake MD Unavailable Andrei Coon DO Primary Care Provider [phone] Lupis Copeland MD Primary Care Provider Gordon Moralez MD Primary Care Provider [phone] Ja Holley MD Primary Care Provider [phone] Frank Mak MD Unavailable Alfonzo Perkins MD Unavailable [phone] Rosalia Vargas RN Unavailable [phone] Jamari Ellison DO Unavailable [phone] Fredi Unger MD Unavailable [phone] Elroy Calderon MD Unavailable [phone] Ja Holley MD Unavailable Bartolo Morgan MD Unavailable [phone] Molly Spring RN Unavailable [email or web address] Criss Cosme Unavailable [phone] Maximino Dorado MD, PhD Unavailable [phone] Maximino Dorado MD, PhD Unavailable [phone] Lincoln Thomson MD Unavailable [phone] Dhaval Slater MD Unavailable Encounter Details Date Type Department Care Team (Latest Contact Info) Description 03/23/2018 Transcribe Orders Virtual Department 30 [place] [address] Ernestina Carlin MD [address] [place] [address] [email or web address] Dysphagia, unspecified type (Primary Dx) Social History [...] Description 02/19/2025 3:00 PM EST Office Visit [facility] Medicine [address] [place] [address] Ja Holley MD [address] [place] [address], [address] [place] [address] 04/30/2025 10:30 AM EDT Office Visit [facility] [address] [place] [address] Fredi Elaine DO 22 [place] [address] 05/06/2025 12:00 PM EDT Appointment Department of Radiation Oncology [address] [place] [address] Lincoln Burton, CLIENT RELATIONSHIP MANAGER [address] [place] [address] [place] [address] [email or web address] 07/22/2025 9:40 AM EDT Office Visit [facility] 22 [facility] 3rd Floor, [address] [place] [address] Asif Araiza MD, MS 22 [facility], [address] [place] [address] [email or web address] Scheduled Procedures Name Priority Associated [...] transient penetration which promptly cleared. On the electric crane operator view there are multilevel endplate changes of [...] transient penetration which promptly cleared. On the electric crane operator view there are multilevel endplate changes of degenerativedisc disease with disc space narrowing, anterior marginal osteophytes.There is an anterior marginal disc calcification at C4-C5. IMPRESSION: 1. No significant swallowing abnormality identified. No aspiration. Pleaserefer to the speech pathologist's full report to follow. FLUOROSCOPY TIME: 1 MIN. 33 SEC; 2823 IMAGES/FRAMES POS [id number] Edited by: Bianka Lockhart on 04/05/2018 12:44 PM Ernestina Carlin MD IMG FL EXAMS Final Result documented in this encounter Visit [...] documented as of this encounter Care Teams Mold Yard Worker Relationship Specialty Start Date End Date [place] [address] [email or web address] PCP - General Internal Medicine 05/20/17 01/07/19 Andrei Coon DO 100 [place] [address] [email or web address] PCP - General Family Medicine 01/08/19 01/03/20 Lupis Copeland MD [address] [place] [address] [email or web address] PCP - General Family Medicine 01/04/20 06/09/20 Gordon Moralez MD [address] [phone] Saji [email or web address] g PCP - General 06/10/20 07/22/20 Ja Holley MD [address] [place] [address], [address] [place] [address] PCP - General Internal Medicine 07/23/20 Emile Blake MD [address] [place] [address] Gastroenterology 10/31/18 Frank Mak MD [address] [place] [address], [address] [place] [address] [email or web address] Physical Medicine and Rehabilitation 11/14/20 Alfonzo Perkins MD [address] [place] [address] Psychiatry 02/01/21 10/07/22 Rosalia Vargas, KATEY 30 [place] [address] [email or web address] PHCM Blasting Gang Miner 02/12/21 03/10/21 Jamari Ellison DO [address] [place] [address] [facility] [address] [email or web address] Orthopedic Surgery 07/24/21 Fredi Unger MD [address] [place] [address] Ophthalmology 07/24/21 Elroy Calderon MD [address] [place] [address], [address] [place] [address] [email or web address] Urology 10/27/21 Ja Holley MD [address] [place] [address], [address] [place] [address] [email or web address] Insurance Assigned Provider 05/28/23 Bartolo Morgan MD [address] [place] [address] Psychiatry 10/08/22 Molly Spring RN [address] [place] [address] [email or web address] PHC Blasting Gang Miner 02/07/23 10/07/24 Criss Cosme 10 [place] [address] [email or web address] [facility] Community Health Worker 03/29/23 03/29/23 Maximino Dorado MD, PhD [address] [place] [address] [email or web address] Radiation Oncology 05/03/23 Maximino Dorado MD, PhD [address] [place] [address] [email or web address] Radiation Oncology 06/01/23 06/25/23 Lincoln Thomson MD [address] [place] [address], 2nd [place] [address] [email or web address] Physical Medicine and Rehabilitation 06/26/23 Dhaval Slater MD [address] [place] [address] [place] [address] Neurosurgery 07/07/23 documented as of this encounter Additional Source Comments The information contained in this document represents components of the legal health record. It is not the complete legal health record.[facility]
--- OUTSIDE RECORDS SUMMARY | 2025-01-31 06:33 | XMS_ITS | Encounter Summary ---
Author Organization [facility] Address [address] [place] [address] Phone Care Team Providers Care System Operator Name Role Phone Emile Blake MD Unavailable Andrei Coon DO Primary Care Provider [phone] Lupis Copeland MD Primary Care Provider Gordon Moralez MD Primary Care Provider Ja Holley MD Primary Care Provider [phone] Frank Mak MD Unavailable Alfonzo Perkins MD Unavailable Rosalia Vargas RN Unavailable [phone] Jamari Ellison DO Unavailable Fredi Unger MD Unavailable [phone] Elroy Calderon MD Unavailable [phone] Ja Holley MD Unavailable [phone] Bartolo Morgan MD Unavailable [phone] Molly Spring RN Unavailable [email or web address] Criss Cosme Unavailable [phone] Maximino Dorado MD, PhD Unavailable [phone] Maximino Dorado MD, PhD Unavailable [phone] Lincoln Thomson MD Unavailable [phone] Dhaval Slater MD Unavailable Encounter Details Date Type Department Care Team (Late Contact Info) Description 03/27/2019 Ancillary Orders Virtual Department [address] [place] [address] Arben Crews MD 100 [facility], [address] [place] [address] [email or web address] Voice hoarsenesses; Dysphagia, unspecified type Social History [...] Department Care Team (Late Contact Info) Description 02/19/2025 3:00 PM EST Office Visit [facility] [address] [place] [address] Ja Holley MD [address] [place] [address], [address] [place] [address] 04/30/2025 10:30 AM EDT Office Visit [facility] [address] [place] [address] Fredi Elaine DO 22 [place] [address] 05/06/2025 12:00 PM EDT Appointment Department of Radiation Oncology [address] [place] [address] Lincoln Burton NP [address] [place] [address] [email or web address] 07/22/2025 9:40 AM EDT Office Visit [facility] 22 [facility] 3rd Floor, [address] [place] [address] Asif Araiza MD, MS 22 [facility], [address] [place] [address] [email or web address] Scheduled Procedures Name Priority Associated Diagnoses Date/Ti [...] documented as of this encounter Care Teams System Operator Relationship Specialty Start Date End Date Andrei Coon DO [address] [place] [address] [email or web address] PCP - General Family Medicine 01/08/19 01/03/20 Lupis Copeland MD [address] [place] [address] [email or web address] PCP - General Family Medicine 01/04/20 06/09/20 Gordon Moralez MD [address] [place] [address] Saji [email or web address] PCP - General 06/10/20 07/22/20 Ja Holley MD [address] [place] [address], [address] [place] [address] PCP - General Internal Medicine 07/23/20 Emile Blake MD [address] [address] Gastroenterology 10/31/18 Frank Mak MD [address] [place] [address], [address] [place] [address] [email or web address] Physical Medicine and Rehabilitation 11/14/20 Alfonzo Perkins MD [address] [place] [address] Psychiatry 02/01/21 10/07/22 Rosalia Vargas, RN 30 [place] [address] [email or web address] [facility] Scientist/Engineer 02/12/21 03/10/21 Jamari Ellison DO [address] [place] [address] [facility] [place] [address] Orthopedic Surgery 07/24/21 Fredi Unger MD [address] [address] Ophthalmology 07/24/21 Elroy Calderon MD [address] [place] [address], [address] [place] [address] Urology 10/27/21 Ja Holley MD [address] [place] [address], [address] [place] [address] [email or web address] Insurance Assigned Provider 05/28/23 Bartolo Morgan MD [address] [place] [address] Psychiatry 10/08/22 Molly Spring RN [address] [address] [email or web address] Scientist/Engineer 02/07/23 10/07/24 Criss Cosme [address] [place] [address] [email or web address] PHC Community Health Worker 03/29/23 03/29/23 Maximino Dorado MD, PhD [address] [place] [address] [email or web address] Radiation Oncology 05/03/23 Maximino Dorado MD, PhD [address] [place] [address] [email or web address] Radiation Oncology 06/01/23 06/25/23 Lincoln Thomson MD [address] [place] [address], 2nd [place] [address] [email or web address] Physical Medicine and Rehabilitation 06/26/23 Dhaval Slater MD [address] [place] [address] [address] Neurosurgery 07/07/23 documented as of this encounter Additional Source Comments The information contained in this document represents components of the legal health record. It is not the complete legal health record.[facility]
--- OUTSIDE RECORDS SUMMARY | 2025-01-31 06:33 | XMS_ITS | Encounter Summary ---
Author Organization [facility] Address [address] [place] [address] Phone Care Team Providers Care Cargo Bracer Name Role Phone Emile Blake MD Unavailable [phone] Ja Holley MD Primary Care Provider Frank Mak MD Unavailable Alfonzo Perkins MD Unavailable Jamari Ellison DO Unavailable [phone] Fredi Unger MD Unavailable lEroy Calderon MD Unavailable [phone] Ja Holley MD Unavailable [phone] Bartolo Morgan MD Unavailable Molly Spring RN Unavailable [email or web address] Criss Cosme Unavailable [phone] Maximino Dorado MD, PhD Unavailable [phone] Maximino Dorado MD, PhD Unavailable [phone] Lincoln Thomson MD Unavailable [phone] Dhaval Slater MD Unavailable Encounter Details Date Type Department Care Team (Late st Contact Info) Description 03/27/2021 Ancillary Orders [address] [id number] Niya Jaimes MD [address] [place] [address] [facility] [place] [address] [email or web address] Bilateral shoulder pain, unspecified chronicity [...] high school, GED, job training, learning the Ukrainian language, technical skills, or developing parenting skills)? 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 Not on file Not on file Not on file documented as of this encounter Plan of Treatment Upcoming Encounters Date Type Department Care Team (Late st Contact Info) Description 02/19/2025 3:00 PM EST Office Visit [facility] [address] [place] [address] [place] [address] Ja Holley MD [address] [place] [address], [address] [place] [address] 04/30/2025 10:30 AM EDT Office Visit [facility] [address] [place] [address] [place] [address] Fredi Elaine DO [address] [place] [address] 05/06/2025 12:00 PM EDT Appointment Department of Radiation Oncology [address] [place] [address] Lincoln Burton, MABLE [address] [place] [address] [email or web address] 07/22/2025 9:40 AM EDT Office Visit [facility] [address] [place] [address] Dr 3rd Floor, [address] [place] [address] Asif Araiza MD, MS 22 [facility], [address] [place] [address] Pending Results Name Type Priority Associated Diagnoses [...] documented as of this encounter Care Teams Cargo Bracer Relationship Specialty Start Date End Date Ja Holley MD 22 [facility], [address] [place] [address] PCP - General Internal Medicine 07/23/20 Emile Blake MD [address] [place] [address] Gastroenterology 10/31/18 Frank Mak MD [address] [place] [address], [address] [place] [address] [email or web address] Physical Medicine and Rehabilitation 11/14/20 Alfonzo Perkins MD [address] [place] [address] Psychiatry 02/01/21 10/07/22 Jamari Ellison DO [address] [place] [address] [facility], [place] [address] [email or web address] Orthopedic Surgery 07/24/21 Fredi Unger MD 33 [facility] 2 [place] [address] Ophthalmology 07/24/21 Elroy Calderon MD [address] [place] [address], [address] [place] [address] [email or web address] Urology 10/27/21 Ja Holley MD [address] [place] [address], [address] [place] [address] [email or web address] Insurance Assigned Provider 05/28/23 Bartolo Morgan MD [address] [place] [address] Psychiatry 10/08/22 Molly Spring RN [address] [place] [address] [email or web address] Owner 02/07/23 10/07/24 Criss Cosme [address] [place] [address] [email or web address] PHC Community Health Worker 03/29/23 03/29/23 Maximino Dorado MD, PhD [address] [place] [address] [email or web address] Radiation Oncology 05/03/23 Maximino Dorado MD, PhD [address] [place] [address] [email or web address] Radiation Oncology 06/01/23 06/25/23 Lincoln Thomson MD [address] [place] [address] 2nd [place] [address] [email or web address] Physical Medicine and Rehabilitation 06/26/23 Dhaval Slater MD [address] [place] [address] [place] [address] Neurosurgery 07/07/23 documented as of this encounter Additional Source Comments The information contained in this document represents components of the legal health record. It is not the complete legal health record.[facility]
--- OUTSIDE RECORDS SUMMARY | 2025-01-31 06:33 | XMS_ITS | Encounter Summary ---
Author Organization [facility] Address [address] [place] [address] Phone Care Team Providers Care Capsule Inspector Name Role Phone Leonel Alegria MD Primary Care Provider Emile Blake MD Unavailable Andrei Coon DO Primary Care Provider [phone] Lupis Copeland MD Primary Care Provider Gordon Moralez MD Primary Care Provider [phone] Ja Holley MD Primary Care Provider [phone] Frank Mak MD Unavailable Alfonzo Perkins MD Unavailable Rosalia Vargas RN Unavailable [phone] Jamari Ellison DO Unavailable [phone] Fredi Unger MD Unavailable [phone] Elroy Calderon MD Unavailable [phone] Ja Holley MD Unavailable Bartolo Morgan MD Unavailable [phone] Molly Spring RN Unavailable [email or web address] Criss Cosme Unavailable [phone] Maximino Dorado MD, PhD Unavailable [phone] Maximino Dorado MD, PhD Unavailable [phone] Lincoln Thomson MD Unavailable [phone] Dhaval Slater MD Unavailable Reason for Referral * Physical Therapy (Routine) - Closed Specialty Diagnoses / Procedures Referred By Glory pablo Referred To Contact Physical Therapy Diagnoses Encounter for rehabilitation System, Provider Not In, PhD Partners [phone] [place] [address] 30 [place] [address] Phone: tel: Referral ID Status Reason Start Date Expiration Date Visits Re quested Visits Authorized [id number] Closed 07/14/2017 02/20/2018 99 99 Encounter Details Date Type Department Care Team (Latest Contact Info) Description 07/11/2017 Transcribe Orders [facility] [address] [place] [address] [place] [address] [email or web address] Encounter for rehabilitation (Primary Dx) Social [...] Description 02/19/2025 3:00 PM EST Office Visit [facility] Family Medicine [address] [place] [address] Ja Holley MD [address] [place] [address], [address] [place] [address] 04/30/2025 10:30 AM EDT Office Visit [facility] [address] [place] [address] Ferdi Elaine DO 22 [place] [address] 05/06/2025 12:00 PM EDT Appointment Department of Radiation Oncology [address] [place] [address] Lincoln Burton NP [address] [place], [place] [address] [address] [email or web address] 07/22/2025 9:40 AM EDT Office Visit [facility] [address] [place] [address] 3rd Floor, [address] [place] [address] Asif Araiza MD, MS 22 [facility], [address] [place] [address] [email or web address] Scheduled Procedures Name Priority Associated Diagnoses Date/Ti me COLONOSCOPY Gastroesophageal reflux disease with esophagitis without hemorrhage ESOPHAGOGASTRODUODENOSCOPY Gastroesophageal reflux disease with esophagitis without hemorrhage documented as of this encounter Procedures Procedure Name Priority Date/Time Associated Diagnosis Comments AMB REFERRAL TO [facility] PHYSICAL THERAPY Routine 07/14/2017 1:39 PM EDT Encounter for rehabilitation documented in this encounter Results * Ambulatory referral to [facility] Physical Therapy (07/14/2017 1:39 PM EDT) us Provider Not In System PhD AMB [facility] REFERRALS Fin al Result documented in this encounter Visit Diagnoses Diagnosis Encounter for rehabilitation- Primary documented in this encounter Additional Health Concerns Infection Onset Date Last Indicated Resolved Time CoV-Exposed Comment:Recent close contact documented in the COVID-19 PCR/PRO order 12/04/2020 12/18/2020 12/19/2020 1:25 AM E DT CoV-Risk 01/21/2022 01/21/2022 02/01/2022 1:32 AM EST Resp-Risk 01/25/2025 01/25/2025 documented as of this encounter Care Teams Capsule Inspector Relationship Specialty Start Date End Date [place] [address] [email or web address] PCP - General Internal Medicine 05/20/17 01/07/19 Andrei Coon DO [address] [place] [address] [email or web address] PCP - General Family Medicine 01/08/19 01/03/20 Lupis Copeland MD [address] [place] [address] [email or web address] PCP - General Family Medicine 01/04/20 06/09/20 Gordon Moralez MD [address] [place] [address] Saji [email or web address] PCP - General 06/10/20 07/22/20 Ja Holley MD [address] [place] [address], [address] [place] [address] [email or web address] PCP - General Internal Medicine 07/23/20 Emile Blake MD [address] [place] [address] [email or web address] Gastroenterology 10/31/18 Frank Mak MD [address] [place] [address], [address] [place] [address] [email or web address] Physical Medicine and Rehabilitation 11/14/20 Alfonzo Perkins MD [address] [place] [address] [email or web address] Psychiatry 02/01/21 10/07/22 Rosalia Vargas RN 30 [place] [address] [email or web address] 02/12/21 03/10/21 Jamari Ellison DO [address] [place] [address] Orth[facility] Sports Medicine, [place] [address] [email or web address] Orthopedic Surgery 07/24/21 Fredi Unger MD [address] [place] [address] Ophthalmology 07/24/21 Elroy Calderon MD [address] [place] [address], [address] [place] [address] [email or web address] Urology 10/27/21 Ja Holley MD [address] [place] [address], [address] [place] [address] [email or web address] Insurance Assigned Provider 05/28/23 Bartolo Morgan MD [address] [place] [address] Psychiatry 10/08/22 Molly Spring RN [address] [place] [address] [email or web address] 02/07/23 10/07/24 Criss Cosme 10 [place] [address] [email or web address] [facility] Community Health Worker 03/29/23 03/29/23 Maximino Dorado MD, PhD [address] [place] [address] [email or web address] Radiation Oncology 05/03/23 Maximino Dorado MD, PhD [address] [place] [address] [email or web address] Radiation Oncology 06/01/23 06/25/23 Lincoln Thomson MD [address] [place] [address], [address] [place] [address] [email or web address] Physical Medicine and Rehabilitation 06/26/23 Dhaval Slater MD [address] [place] [address] [place] [address] Neurosurgery 07/07/23 documented as of this encounter Additional Source Comments The information contained in this document represents components of the legal health record. It is not the complete legal health record.[facility]
--- OUTSIDE RECORDS SUMMARY | 2025-01-31 06:33 | XMS_ITS | Encounter Summary ---
Author Organization [facility] Address [address] [place] [address] Phone Care Team Providers Care Oven Drier Tender Name Role Phone Leonel Alegria MD Primary Care Provider Emile Blake MD Unavailable Andrei Coon DO Primary Care Provider [phone] Lupis Copeland MD Primary Care Provider [phone] Gordon Moralez MD Primary Care Provider [phone] Ja Holley MD Primary Care Provider [phone] Frank Mak MD Unavailable Alfonzo Perkins MD Unavailable Rosalia Vargas RN Unavailable [phone] Jamari Ellison DO Unavailable [phone] Fredi Unger MD Unavailable [phone] Elroy Calderon MD Unavailable [phone] Ja Holley MD Unavailable Bartolo Morgan MD Unavailable [phone] Molly Spring RN Unavailable [email or web address] Criss Cosme Unavailable [phone] Maximino Dorado MD, PhD Unavailable [phone] Maximino Dorado MD, PhD Unavailable [phone] Lincoln Thomson MD Unavailable [phone] Dhaval Slater MD Unavailable Encounter Details Date Type Department Care Team (Late Contact Info) Description 05/23/2018 Procedure Pass [facility] Endoscopy Admitting Dept Virtual Department [address] [place] [address] Social History Tobacco Use Types Packs/Day Years [...] Description 02/19/2025 3:00 PM EST Office Visit [facility] [address] [place] [address] Ja Holley MD [address] [place] [address], [address] [place] [address] 04/30/2025 10:30 AM EDT Office Visit [facility] [address] [place] [address] [place] [address] Fredi Elaine DO [address] [place] [address] 05/06/2025 12:00 PM EDT Appointment Department of Radiation Oncology [address] [place] [address] Lincoln Burton, MECHANICAL DEVELOPMENT ENGINEER [address] [place] [address] [email or web address] 07/22/2025 9:40 AM EDT Office Visit [facility] 22 [facility] 3rd Floor, [address] [place] [address] Asif Araiza MD, MS 22 [facility], [address] [place] [address] [email or web address] [email or web address] Scheduled Procedures Name Priority Associated Diagnoses Date/Ti [...] documented as of this encounter Care Teams Oven Drier Tender Relationship Specialty Start Date End [place] [address] [email or web address] PCP - General Internal Medicine 05/20/17 01/07/19 Andrei Coon DO [address] [place] [address] [email or web address] PCP - General Family Medicine 01/08/19 01/03/20 Lupis Copeland MD [facility] [place] [address] [email or web address] PCP - General Family Medicine 01/04/20 06/09/20 Gordon Moralez MD [address] [address] Saji @[email or web address] g PCP - General 06/10/20 07/22/20 Ja Holley MD [address] [place] [address], [address] [place] [address] PCP - General Internal Medicine 07/23/20 Emile Blake MD [address] [place] [address] Gastroenterology 10/31/18 Frank Mka MD [address] [place] [address], [address] [place] [address] [email or web address] Physical Medicine and Rehabilitation 11/14/20 Alfonzo Perkins MD [address] [place] [address] Psychiatry 02/01/21 10/07/22 Rosalia Vargas, KATEY [address] [place] [address] PHC Electronic Equipment Maint Tech 02/12/21 03/10/21 Jamari Ellison DO [address] [place] [address] [facility] [place] [address] Orthopedic Surgery 07/24/21 Fredi Unger MD [address] [place] [address] Ophthalmology 07/24/21 Elroy Calderon MD [address] [place] [address], [address] [address] [email or web address] [email or web address] Urology 10/27/21 Ja Holley MD [address] [place] [address], [address] [place] [address] [email or web address] Insurance Assigned Provider 05/28/23 Bartolo Morgan MD [address] [place] [address] Psychiatry 10/08/22 Molly Spring RN [address] [place] [address] [email or web address] Electronic Equipment Maint Tech 02/07/23 10/07/24 Criss Cosme [address] [place] [address] [email or web address] [email or web address] [facility] Community Health Worker 03/29/23 03/29/23 Maximino Dorado MD, PhD [address] [place] [address] [email or web address] Radiation Oncology 05/03/23 Maximino Dorado MD, PhD [address] [place] [address] [email or web address] Radiation Oncology 06/01/23 06/25/23 Lincoln Thomson MD [address] [place] [address], 2nd [place] [address] [email or web address] Physical Medicine and Rehabilitation 06/26/23 Dhaval Slater MD [address] [place] [address] Neurosurgery 07/07/23 documented as of this encounter Additional Source Comments The information contained in this document represents components of the legal health record. It is not the complete legal health record.[facility]
--- OUTSIDE RECORDS SUMMARY | 2025-01-31 06:34 | XMS_ITS | Encounter Summary ---
Author Organization [facility] Address [address] [place] [address] Phone Care Team Providers Care Scientific Systems Analyst Name Role Phone Emile Blake MD Unavailable Andrei Coon DO Primary Care Provider [phone] Lupis Copeland MD Primary Care Provider Gordon Moralez MD Primary Care Provider Ja Holley MD Primary Care Provider [phone] Frank Mak MD Unavailable Alfonzo Perkins MD Unavailable Rosalia Vargas RN Unavailable Jamari Ellison DO Unavailable Fredi Unger MD Unavailable [phone] Elroy Calderon MD Unavailable [phone] Ja Holley MD Unavailable [phone] Bartolo Morgan MD Unavailable [phone] Molly Spring RN Unavailable [email or web address] Criss Cosme Unavailable [phone] Maixmino Dorado MD, PhD Unavailable [phone] Maximino Dorado MD, PhD Unavailable [phone] Lincoln Thomson MD Unavailable Dhaval Slater MD Unavailable Encounter Details Date Type Department Care Team (Latest Contact Info) Description 01/28/2019 Transcribe Orders [facility] Main [address] [place] [address] Compa Monsalve MD [address] [facility] [address] [place] [address] Chronic fatigue syndrome (Primary Dx); Retention of [...] Description 02/19/2025 3:00 PM EST Office Visit [facility] [place] [facility] [address] [place] [address] Ja Holley MD [address] [place] [address], [address] [place] [address] 04/30/2025 10:30 AM EDT Office Visit [facility] [address] [place] [address] Fredi Elaine DO 22 [place] [address] 05/06/2025 12:00 PM EDT Appointment Department of Radiation Oncology [address] [place] [address] Lincoln Burton, MABLE [address] [place] [address] [email or web address] 07/22/2025 9:40 AM EDT Office Visit [facility] [address] [facility] 3rd Floor, [address] [place] [address] Asif Araiza MD, MS [address] [facility], [address] [place] [address] Scheduled Procedures Name Priority Associated Diagnoses Date/Ti me COLONOSCOPY Gastroesophageal reflux disease with esophagitis without hemorrhage ESOPHAGOGASTRODUODENOSCOPY Gastroesophageal reflux disease with esophagitis without hemorrhage documented as of this encounter Results * (ABNORMAL) Hemoglobin A1c (01/28/2019 10:36 AM EST) HEMOGLOBIN A1C 6.3(H) 4.3 - 5.8 % [facility] Blood 01/28/2019 10:3 6 AM EST 01/28/2019 10:44 AM EST Compa Monsalve MD LAB BLOOD BKR ORDERAB LES Final Result [address] [address] * Cortisol AM (01/28/2019 10:36 AM EST) CORTISOL AM 8.1 6.2 - 19.4 ug/dL [facility] Blood 01/28/2019 10:3 6 AM EST 01/28/2019 10:44 AM EST Compa Monsalve MD LAB BLOOD BKR ORDERAB LES Final Result [address] [address] * PSA (screening) (01/28/2019 10:36 AM EST) PSA 2.77 0 - 4.00 ng/mL [facility] Blood 01/28/2019 10:3 6 AM EST 01/28/2019 10:43 AM EST Compa Monsalve MD LAB BLOOD BKR ORDERAB LES Final Result Performing Organization Address City/[facility]/ZIP Co de Phone Number [address] [address] * (ABNORMAL) 25-OH vitamin D (01/28/2019 10:36 AM EST) 25 OH VIT D (TOTAL) 28(L) 30 - 60 ng/mL [facility] Blood 01/28/2019 10:3 6 AM EST 01/28/2019 10:44 AM EST Compa Monsalve MD LAB BLOOD BKR ORDERAB LES Final Result Performing Organization Address [facility] Co de Phone Number [address] [address] * Testosterone, total and free (01/28/2019 10:36 AM EST) FREE TESTOSTERONE 11.2 3.47 - 13.0 ng/dL [facility] MED/PATH SUPERIOR Comment: (NOTE) ADDITIONAL INFORMATION Testing performed by [facility]. This test was developed and its performance characteristics determined by [facility] in a manner consistent with CLIA requirements. This test has not been cleared or approved by the U.S. Food and Drug Administration. TESTOSTERONE, TOTAL 511 240 - 950 ng/dL [facility]PER[facility] Comment: (NOTE) ADDITIONAL INFORMATION Testing performed by Liquid Chromatography-Tandem Mass Spectrometry (LC-MS/MS). This test was developed and its performance characteristics determined by [facility] in a manner consistent with CLIA requirements. This test has not been cleared or approved by the U.S. Food and Drug Administration. Blood 01/28/2019 10:3 6 AM EST 01/28/2019 10:45 AM EST Compa Monsalve MD LAB BLOOD BKR ORDERAB LES Final Result [facility] [address] [place] [address] * TSH with reflex (01/28/2019 10:36 AM EST) TSH 1.20 0.27 - 4.20 uIU/mL [facility] Blood 01/28/2019 10:3 6 AM EST 01/28/2019 10:44 AM EST Compa Monsalve MD LAB BLOOD BKR ORDERAB LES Final Result Performing Organization Address City/[facility] Co de Phone Number [facility] [address] [place] [address] documented in this encounter Visit Diagnoses Diagnosis [...] documented as of this encounter Care Teams Scientific Systems Analyst Relationship Specialty Start Date End Date Andrei Coon DO [address] [place] [address] [email or web address] PCP - General Family Medicine 01/08/19 01/03/20 Lupis Copeland MD [address] [place] [address] [email or web address] PCP - General Family Medicine 01/04/20 06/09/20 Gordon Moralez MD [address] [facility] [address] [place] [address] Saji [email or web address] PCP - General 06/10/20 07/22/20 Ja Holley MD [address] [facility], [address] [place] [address] PCP - General Internal Medicine 07/23/20 Emile Blake MD [address] [address] Gastroenterology 10/31/18 Frank Mak MD [address] [place] [address], [address] [place] [address] [email or web address] Physical Medicine and Rehabilitation 11/14/20 Alfonzo Perkins MD [address] [place] [address] Psychiatry 02/01/21 10/07/22 Rosalia Vargas, KATEY 30 [place] [address] PHC Oscillograph Technician 02/12/21 03/10/21 Jamari Ellison DO [address] [place] [address] Orthopedics & Sports Medicine, [facility] [place] [address] Orthopedic Surgery 07/24/21 Fredi Unger MD [address] [facility] 2 [place] [address] Ophthalmology 07/24/21 Elroy Calderon MD [address] [place] [address], [address] [place] [address] [email or web address] Urology 10/27/21 Ja Holley MD [address] [place] [address], [address] [place] [address] [email or web address] Insurance Assigned Provider 05/28/23 Bartolo Morgan MD [address] [place] [address] Psychiatry 10/08/22 Molly Spring, KATEY [address] [place] [address] [email or web address] 02/07/23 10/07/24 Criss Cosme 10 [place] [address] [email or web address] PHC Community Health Worker 03/29/23 03/29/23 Maximino Dorado MD, PhD [address] [place] [address] [email or web address] Radiation Oncology 05/03/23 Maximino Dorado MD, PhD [address] [place] [address] [email or web address] Radiation Oncology 06/01/23 06/25/23 Lincoln Thomson MD [address] [place] [address], 2nd [place] [address] [email or web address] Physical Medicine and Rehabilitation 06/26/23 Dhaval Slater MD [address] [place] [address] [place] [address] Neurosurgery 07/07/23 documented as of this encounter Additional Source Comments The information contained in this document represents components of the legal health record. It is not the complete legal health record.[facility]
--- OUTSIDE RECORDS SUMMARY | 2025-01-31 06:34 | XMS_ITS | Encounter Summary ---
Author Organization [facility] Address [address] [place] [address] Phone Care Team Providers Care Educational Technician Name Role Phone Emile Blake MD Unavailable [phone] Andrei Coon DO Primary Care Provider [phone] Lupis Copeland MD Primary Care Provider Gordon Moralez MD Primary Care Provider Ja Holley MD Primary Care Provider [phone] Frank Mak MD Unavailable Alfonzo Perkins MD Unavailable Rosalia Vargas RN Unavailable [phone] Jamari Ellison DO Unavailable Fredi Unger MD Unavailable [phone] Elroy Calderon MD Unavailable [phone] Ja Holley MD Unavailable [phone] Bartolo Morgan MD Unavailable [phone] Molly Spring RN Unavailable [email or web address] Criss Cosme Unavailable [phone] Maximino Dorado MD, PhD Unavailable [phone] Maximino Dorado MD, PhD Unavailable [phone] Lincoln Thomson MD Unavailable Dhaval Slater MD Unavailable Encounter Details Date Type Department Care Team (Late Contact Info) Description 03/13/2019 Procedure Pass [facility], [facility] - [address] [address] Social History Tobacco Use Types Packs/Day Years [...] Description 02/19/2025 3:00 PM EST Office Visit [address] [place] [address] Ja Holley MD [address] [place] [address], [address] [place] [address] 04/30/2025 10:30 AM EDT Office Visit [facility] [address] [place] [address] [place] [address] Fredi Elaine DO [address] [place] [address] 05/06/2025 12:00 PM EDT Appointment Department of Radiation Oncology [address] [place] [address] Lincoln Burton, HOSE SUSPENDER CUTTER [address] [place] [address] ASB1-L2 [place] [address] [email or web address] 07/22/2025 9:40 AM EDT Office Visit [facility] [address] [facility] 3rd Floor, [address] [place] [address] Asif Araiza MD, MS [address] [facility], [address] [place] [address] [email or web address] Scheduled Procedures [...] documented as of this encounter Care Teams Educational Technician Relationship Specialty Start Date End Date Andrei Coon DO [address] [place] [address] [email or web address] PCP - General Family Medicine 01/08/19 01/03/20 Lupis Copeland MD [address] [place] [address] [email or web address] PCP - General Family Medicine 01/04/20 06/09/20 Gordon Moralez MD [address] [address] Saji [email or web address] PCP - General 06/10/20 07/22/20 Ja Holley MD [address] [place] [address], [address] [place] [address] PCP - General Internal Medicine 07/23/20 Emile Blake MD [address] [place] [address] Gastroenterology 10/31/18 Frank Mak MD [address] [place] [address], [address] [place] [address] [email or web address] Physical Medicine and Rehabilitation 11/14/20 Alfonzo Perkins MD [address] [place] [address] Psychiatry 02/01/21 10/07/22 Rosalia Vargas, KATEY 30 [place] [address] [facility] Molasses Coloring Operator 02/12/21 03/10/21 Jamari Ellison DO [address] [place] [address] [facility] [place] [address] Orthopedic Surgery 07/24/21 Fredi Unger MD [address] [place] [address] Ophthalmology 07/24/21 Elroy Calderon MD [address] [place] [address] [email or web address] Urology 10/27/21 Ja Holley MD [address] [facility], [address] [place] [address] [email or web address] Insurance Assigned Provider 05/28/23 Bartolo Morgan MD [address] [place] [address] Psychiatry 10/08/22 Molly Spring RN [address] [place] [address] [email or web address] Coloring Operator 02/07/23 10/07/24 Criss Cosme [address] [place] [address] [email or web address] [facility] Community Health Worker 03/29/23 03/29/23 Maximino Dorado MD, PhD [address] [place] [address] [email or web address] Radiation Oncology 05/03/23 Maximino Dorado MD, PhD [address] [place] [address] [email or web address] Radiation Oncology 06/01/23 06/25/23 Lincoln Thomson MD [address] [place] [address], 2nd [place] [address] [email or web address] Physical Medicine and Rehabilitation 06/26/23 Dhaval Slater MD [address] [place] [address] [place] [address] Neurosurgery 07/07/23 documented as of this encounter Additional Source Comments The information contained in this document represents components of the legal health record. It is not the complete legal health record.[facility]
--- OUTSIDE RECORDS SUMMARY | 2025-01-31 06:34 | XMS_ITS | Encounter Summary ---
Author Organization [facility] Address [address] [place] [address] Phone Care Team Providers Care Hyperbaric Technologist Name Role Phone Emile Blake MD Unavailable [phone] Ja Holley MD Primary Care Provider + [phone] Frank Mak MD Unavailable [phone] Jamari Ellison DO Unavailable [phone] Fredi Unger MD Unavailable [phone] Elroy Calderon MD Unavailable [phone] Ja Holley MD Unavailable [phone] Bartolo Morgan MD Unavailable [phone] Molly Spring RN Unavailable [email or web address] Criss Cosme Unavailable [phone] Maximino Dorado MD, PhD Unavailable [phone] Maximino Dorado MD, PhD Unavailable [phone] Lincoln Thomson MD Unavailable [phone] Dhaval Slater MD Unavailable Encounter Details Date Type Department Care Team (Late st Contact Info) Description 12/21/2022 Procedure Pass [facility], [address] [place] [address] Social History Tobacco Use Types Packs/Day Years [...] 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 Not on file disabled Not on file Not on file Not on file documented as of this encounter Plan of Treatment Upcoming Encounters Date Type Department Care Team (Late st Contact Info) Description 02/19/2025 3:00 PM EST Office Visit [facility] Medicine [address] [place] [address] [place] [address] Ja Holley MD [address] [place] [address], [address] [place] [address] 04/30/2025 10:30 AM EDT Office Visit [facility] [address] [place] [address] [place] [address] Fredi Elaine DO [address] [place] [address] 05/06/2025 12:00 PM EDT Appointment Department of Radiation Oncology [address] [place] [address] Lincoln Burton NP [address] [place] [address] [email or web address] 07/22/2025 9:40 AM EDT Office Visit [facility] [address] [place] [address] Dr 3rd Floor, [address] [place] [address] Asif Araiza MD, MS 22 [facility], [address] [place] [address] Scheduled Procedures Name Priority Associated Diagnoses Date/Ti pr COLONOSCOPY Gastroesophageal reflux disease with esophagitis without [...] documented as of this encounter Care Teams Hyperbaric Technologist Relationship Specialty Start Date End Date Ja Holley MD [address] [place] [address], [address] [place] [address] PCP - General Internal Medicine 07/23/20 Emile Blake MD [address] [place] [address] Gastroenterology 10/31/18 Frank Mak MD [address] [place] [address], [address] [place] [address] [email or web address] Physical Medicine and Rehabilitation 11/14/20 Jamari Ellison DO [address] [place] [address] Orthopedics & Sports Medicine, [place] [address] Orthopedic Surgery 07/24/21 Fredi Unger MD [address] [place] [address] Ophthalmology 07/24/21 Elroy Calderon MD [address] [place] [address], [address] [place] [address] Urology 10/27/21 Ja Holley MD [address] [place] [address], [address] [place] [address] Insurance Assigned Provider 05/28/23 Bartolo Morgan MD [address] [place] [address] Psychiatry 10/08/22 Molly Spring RN [address] [place] [address] [email or web address] PHCM Network Cable Installer 02/07/23 10/07/24 Criss Cosme [address] [place] [address] [email or web address] PHC Community Health Worker 03/29/23 03/29/23 Maximino Dorado MD, PhD [address] [place] [address] [email or web address] Radiation Oncology 05/03/23 Maximino Dorado MD, PhD [address] [place] [address] [email or web address] Radiation Oncology 06/01/23 06/25/23 Lincoln Thomson MD [address] [place] [address] [email or web address] Physical Medicine and Rehabilitation 06/26/23 Dhaval Slater MD [address] [place] [address] Dr CALIX [address] [place] [address] Neurosurgery 07/07/23 documented as of this encounter Additional Source Comments The information contained in this document represents components of the legal health record. It is not the complete legal health record.[facility]
--- OUTSIDE RECORDS SUMMARY | 2025-01-31 06:34 | XMS_ITS | Encounter Summary ---
Author Organization [facility] Address [address] [place] [address] Phone Care Team Providers Care Parachute Rigger Name Role Phone Ja Holley MD Primary Care Provider Encounter Details Date Type Department Care Team (Late st Contact Info) Description 07/19/2024 Documentation Only [facility], [address] [place] [address] Manuela Torres [address] [place] [address] Social History Tobacco Use Types [...] on filedocumented in this encounter Care Teams Parachute Rigger Relationship Specialty Start Date End Date Ja Holley MD [address] [place] [address], [address] [place] [address] PCP - General Internal Medicine 02/21/24 documented as of this encounter
--- OUTSIDE RECORDS SUMMARY | 2025-01-31 06:34 | XMS_ITS | Clinical Summary ---
Author Organization [facility] Address [address] [place] [address] Phone Care Team Providers Care Drafting Supervisor Name Role Phone Emile Blake MD Unavailable Ja Holley MD Primary Care Provider Frank Mak MD Unavailable [phone] Jamari Ellison DO Unavailable [phone] Fredi Unger MD Unavailable Elroy Calderon MD Unavailable [phone] Ja Holley MD Unavailable Bartolo Morgan MD Unavailable [phone] Maximino Dorado MD, PhD Unavailable Lincoln Thomson MD Unavailable Dhaval Slater MD Unavailable Allergies No known active allergies Medications olopatadine (PATADAY) 0.2 % Drop as needed. 10/03/19 24 Active olmesartan (BENICAR) 40 mg tablet Take 40 mg by mouth. 05/26/19 25 Active amLODIPine (NORVASC) 5 MG tablet Take 5 mg by mouth daily. 05/26/19 25 Active tamsulosin (FLOMAX) 0.4 mg Cap TAKE ONE CAPSULE BY MOUTH EVERY DAY. START 1 WEEK BEFORE PROCEDURE 30 capsule 5 10/01/19 25 Active cholecalcifer ol (VITAMIN D3) 2,000 unit capsuleIndica tions:Vitamin D deficiency TAKE ONE CAPSULE BY MOUTH EVERY DAY 90 capsule 3 10/27/19 25 Active FREESTYLE 28 gauge lancetsIndica tions:Type 2 diabetes mellitus without complication, without long-term current use of insulin 1 each by Miscellaneous route daily. 100 each 3 11/01/19 25 Active FREESTYLE LITE Strp stripsIndicat ions:Type 2 diabetes mellitus without complication, without long-term current use of insulin 1 each by Miscellaneous route daily. 100 strip 3 11/01/19 25 Active pantoprazole (PROTONIX) 20 MG tablet TAKE ONE TABLET BY MOUTH EVERY DAY 30 tablet 5 11/30/19 25 Active rosuvastatin (CRESTOR) 40 MG tabletIndicat ions:Hyperlip idemia LDL goal <70 TAKE ONE TABLET BY MOUTH EVERY DAY 90 tablet 01/16/20 25 Active vilazodone (VIIBRYD) 10 mg Tab Take 10 mg by mouth every morning. 01/04/20 25 Active diazePAM (VALIUM) 5 MG tablet Take 1 tablet by mouth 2 (two) times a day. 01/23/20 25 Active QUEtiapine (SEROQUEL) 25 MG tablet Take 1 tablet by mouth nightly at bedtime as needed. 03/26/19 25 2024 Discontinued albuterol 90 mcg/actuation inhaler Inhale 2 puffs into the lungs every 6 (six) hours as needed for wheezing. 18 g 1 06/21/19 25 2024 Discontinued(N o longer taking) sildenafiL (VIAGRA) 25 mg tabletIndicat ions:Prostate cancer Take 1-4 tablets (25-100 mg total) by mouth daily as needed (1 hr prior to sexual activity. No more than 100 mg in a 24-hour period). 10 tablet 09/11/19 25 2024 Discontinued(N o longer taking) rosuvastatin (CRESTOR) 40 MG tabletIndicat ions:Hyperlip idemia LDL goal <70 Take 1 tablet (40 mg total) by mouth daily. 90 tablet 1 11/01/19 25 2024 Discontinued naproxen (NAPROSYN) 375 MG tablet Take 375 mg by mouth 2 (two) times a day as needed. 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 Elaine: This is a benign adrenal tumor which is nonsecreting based on biochemical evaluation. He does not require further workup. Assessment & Plan (07/19/2024 10:05 AM EDT): [...] for further evaluation of the adrenal nodule/tumor. Long-term corticosteroid use 07/05/2024 Assessment & Plan (01/11/2025 1:25 PM EST): He is on long-term corticosteroid administration for pains which is not great for his diabetes or bones. He wants opioid medications. However his pain management team has been reluctant to give him this potent medication for obvious reason they do not want him to become addicted to it. So he is resorted to receiving intra-articular corticosteroid injections every 4 months. This eventually can potentially result in adrenal insufficiency. My feeling is that his low glucose level was probably due to to a large insulin response to a very high carbohydrate meal. So in order to avoid postprandial hypoglycemia then he should avoid these high carbohydrate meals and focus more complex carbohydrates and protein. As for the question of potentially developing adrenal insufficiency he has been worked up before but I will repeat another fasting cortisol level. He should do this in the morning obviously is as soon as he wakes up. Assessment & Plan (08/30/2024 11:00 AM EDT): [...] He will try to do this at [facility] I did inform him this can take up to a year. Hallux rigidus of both feet 03/09/2024 Osteoarthritis of ankle and foot 03/09/2024 Acquired hallux valgus of right foot 03/09/2024 Vertigo 02/28/2024 Asthma 02/28/2024 Benign prostatic hyperplasia 02/28/2024 Obsessive behavior 02/28/2024 Dysthymia 05/13/2023 Primary osteoarthritis of both shoulders 024 Assessment [...] with myelopathy or radiculopathy). Assessment & Plan (01/03/2025 9:27 AM EST): MRI cervical spine 2021 severe multilevel foraminal stenosis, moderate central canal stenosis. S/p C3-5 fusion in 2023 Symptoms are manageable and stable Assessment & Plan (07/21/2023 9:29 AM EDT): History of multiple injuries and surgeries leading to chronic pain in multiple joints including knees, lumbar spine, and shoulders. Recent cervical fusion due to arm weakness. Current pain management with Vicodin and Tizanidine deemed ineffective by the patient. -Continue current pain management regimen. -Consider consultation with paint line production supervisor for further evaluation and treatment options. [...] medications in the past Assessment & Plan (01/03/2025 9:27 AM EST): Sees pain clinic at [facility]- failed numerous medications in the past Assessment & Plan [...] him for planning to work with the [facility] pain clinic which I think is likely [...] Euflexxa and steroid injections Assessment & Plan (01/03/2025 9:27 AM EST): Following with orthopedics. Will be going to shoulder injections. Previously had Euflexxa and cortisone knee injections. Assessment & Plan (09/20/2023 8:54 PM EDT): [...] to have a left knee replacement at [facility]. He will likely need a preop with me prior. Assessment & Plan (07/24/2021 10:15 AM EDT): Follow-up as planned with orthopedics he is planning to discuss possible knee replacement surgery Assessment & Plan (06/18/2021 9:19 AM EDT): Patient is considering total knee replacement. Asked him to follow-up with orthopedics. He is considering seeing an orthopedist at [facility] for Vitamin D deficiency 03/30/2021 Assessment & Plan (01/03/2025 9:27 AM EST): Taking supplement Lab Results Component Value Date VITDT 59 10/24/2024 VITDT 40 06/25/2021 VITDT 28 (L) 01/28/2019 Assessment & Plan (06/30/2021 9:41 AM EDT): Vitamin D levels are replete as long as he continues to take cholecalciferol 2000 units he should be fine. Narcissistic personality disorder 02/11/2021 Assessment & Plan (01/03/2025 9:27 AM EST): As above. Assessment & Plan (04/20/2023 9:12 AM EST): Doing reasonably well, seems somewhat better since starting ketamine. Type 2 diabetes mellitus wit hout complication, without long-term current use of insulin 02/01/2021 Overview (04/20/2023): Diet controlled. Assessment & Plan (01/11/2025 1:23 PM EST): Last hemoglobin A1c 6.1% which means that he is doing well on diet control. The question is is he developing hypoglycemia due to chronic corticosteroid use and is this potentially decreasing his endogenous cortisol production. I will check a repeat cortisol level. Assessment & Plan (01/03/2025 9:27 AM EST): Lab Results Component Value Date [id number] 6.6 (*) 03/29/2023 GHBA1C 6.1 (H) 10/24/2024 GHBA1C 6.4 (H) 06/30/2024 GHBA1C 6.5 (H) 12/15/2023 Working on diet and exercise efforts Assessment & Plan (11/01/2024 3:26 PM EDT): [...] and exercise and he has seen the product development consultant and has learned a great deal and [...] does have diabetes. He will see a breastfeeding educator today and continue working on his diet. We will recheck his hemoglobin A1c at his next appointment S/P inguinal hernia repair using synthetic patch 11/18/2020 Prostate cancer 10/09/2020 Overview (06/01/2023): Diagnosed in 2019, Tatyana 3+3. 2023, disease progressing. April 2023 started brachytherapy at [facility] Assessment & Plan (01/03/2025 9:27 AM EST): Saw Dr. Calderon 05/2024- plan was to f/u in 1 year with PSA. Also follows at [facility] Per [facility] rad onc visit note 08/2024: Prostate cancer control to date: 15 months post HDR Brachytherapy w/o ADT with his most recent PSA of 0.89 indicating an ongoing biochemical remission & new post-treatment josue . We discussed that after radiation alone we typically see a gradual reduction in the PSA over a 24-36 month period. Unable to see visit note from 12/28/24 as this is not signed yet- repeat PSA was elevated but noted to have sex prior to draw and is planning to repeat this in 6 weeks Lab Results Component Value Date PSA 2.40 12/15/2024 PSA 0.89 08/30/2024 PSA 1.56 05/16/2024 Assessment & Plan (11/01/2024 3:26 PM EDT): [...] Considering having intermittent radium seeds implanted in [place]. Follow-up as planned with radiation oncology. Assessment [...] mm L5-S1 November 2019 Assessment & Plan (01/03/2025 9:27 AM EST): Per prior note: L4-5, xray 2015, retrolisthesis of 6 mm of L2-3, anterolisthesis 6 mm L5-S1 November 2019 Sees pain clinic at [facility]. Assessment & Plan (12/15/2023 9:38 AM EDT): [...] considering. No follow-up as planned with the [facility] pain clinic. Degenerative disc disease, cervical 09/25/2020 [...] LDL goal <70 08/22/2020 Assessment & Plan (01/11/2025 1:27 PM EST): Controlled. LDL 63 mg/dL on rosuvastatin 40 mg continue current medication. Assessment & Plan (01/03/2025 9:27 AM EST): Currently on atorva 40mg. Sent message to PCP re myalgias which seems to be a chronic issue and not related. Assessment & Plan (10/31/2024 12:28 PM EDT): [...] change with spironolactone, hydrochlorothiazide Assessment & Plan (01/03/2025 9:27 AM EST): Taking olmesartan, amlodipine Takes BP at home- BP elevated when in pain CMP is ordered Assessment & Plan (11/01/2024 3:26 PM EDT): [...] treated prejudicially and was never accepted to [employer]. He did study medicine in [place] for a while. Tried many other meds in the past including tricyclic antidepressants. Feels like has nothing to do and feels very alone. Feels stuck since teenager when father from stroke. Assessment & Plan (01/03/2025 9:41 AM EST): Overall stable. Has tried various medications including TCAs without much benefit. No SI/HI Looking for new provider- Will contact Gael Arreguin Assessment & Plan (06/01/2023 1:40 PM EDT): [...] also asked him to start services with PATIENT CARE PROVIDER. Assessment & Plan (11/14/2020 12:50 PM EDT): [...] to try and establish care longitudinally with PATIENT CARE PROVIDER or [facility], and while awaiting for this [...] ketamine treatment in 2022 Assessment & Plan (01/03/2025 9:27 AM EST): Tried ketamine infusions, did help some but had SE and stopped this Assessment & Plan (11/01/2024 3:27 PM EDT): [...] that continued treatments will help in this internet consultant I expect will help his blood pressure [...] support options, I recommend he contact [facility], [facility], or service net and get on [...] for him to see someone through the [facility] health network. There is only brief comment [...] his 20s. Managed by Dr. Finney at [facility]. MRI lumbar spine November [...] treatment options with implantable devices with the [facility] pain clinic. Follow-up as scheduled. Assessment [...] ibuprofen with acetaminophen. Follow-up as planned with [facility], considering another steroid injection. [...] into getting involved with the [facility] functional [facility]andaen program. I think this is a very [...] Calderon. He will follow-up as scheduled with [facility] pain Assessment & Plan (12/26/2020 10:02 AM [...] moderate, with moderate hypoxemia Assessment & Plan (01/03/2025 9:27 AM EST): Working on getting CPAP supplies- CPAP does help- trying to work with regional home care for new supplies Assessment & Plan (07/06/2023 11:23 AM EDT): Doing well with CPAP, should be observed postoperatively for possible hypoventilation. Insomnia 09/19/2008 Assessment & Plan (01/03/2025 9:27 AM EST): As above- BRIANA Resolved Problems Problem Noted Date Diagnosed Date Resolved Date Abnormal LFTs 02/28/2024 02/28/2024 Benign prostatic hyperplasia 02/28/2024 02/28/2024 [...] if symptoms worsen or new symptoms develop. Cervical disc disease 05/13/20232023 Chronic pain 05/13/2023 [...] ation and inoculation against influenza 12/26/2020 02/11/2021 Gastroesophageal reflux dise ase without esophagitis 12/26/2020 01/22/2025 Assessment & Plan (01/03/2025 9:27 AM EST): Symptoms stable and manageable. No dysphagia or odynophagia. Taking pantoprazole 20mg daily Assessment & Plan (11/01/2024 3:28 PM EDT): [...] shows he has normal bone density. S/P umbilical hernia repair, follow-up exam 11/18/2020 [...] a DXA scan that was done at [facility] on 10/03/2020 his T-scores are all in [...] radiculopathy 12/10/2008 025 Overview (02/28/2024): Dr Rodriguez, [facility] Encounters Date Type Department Care Team Description 01/25/2025 11:50 AM EST Office Visit See [facility] [place] [address] [place] [address] Nidia Angelo PA-C Fatigue, unspecified type (Primary Dx); Viral illness 01/22/2025 8:30 AM EST Hospital Encounter Department of Radiation Oncology [address] [place] [address] Lincoln Burton, MELTER OPERATOR 01/14/2025 Refill [facility] [address] [place] [address] Frdei Elaine DO Medication Refill 01/11/2025 1:00 PM EST Office Visit [facility] [address] [place] [address] Fredi Elaine DO Type 2 diabetes mellitus without complication, without long-term current use of insulin (Primary Dx); Long-term corticosteroid use; Hyperlipidemia LDL goal <70 01/11/2025 9:03 AM EST - 01/11/2025 10:00 AM EST Surgery [facility] Cardiovascular And Interventional Radiology [address] [place] [address] Adriana Magaña PA-C Joint INJECTION with Fluoroscopy Guidance 01/11/2025 8:07 AM EST - 01/11/2025 10:08 AM EST Hospital Encounter [facility] Cardiovascular And Interventional Radiology [address] [place] [address] Frank Stephenson MD Discharge Disposition: Home or Self Care 01/11/2025 [facility] [address] [place] [address] 3rd Floor, [address] [place] [address] Asif Araiza MD, MS 01/11/2025 Procedure Pass [facility] Cardiovascular And Interventional Radiology [address] [place] [address] 01/03/2025 9:00 AM EST Telemedicine [facility] [address] [place] [address] Angel Luis PA-C, MPH Annual wellness visit (Primary Dx); Prostate cancer; Adrenal benign tumor, left; Essential (primary) hypertension; BRIANA on CPAP; Hyperlipidemia LDL goal <70; Type 2 diabetes mellitus without complication, without long-term current use of insulin; Vitamin D deficiency; Primary osteoarthritis involving multiple joints; Fibromyalgia syndrome; Cervical spinal stenosis; Insomnia, unspecified type; Gastroesophageal reflux disease without esophagitis; Moderate episode of recurrent major depressive disorder; Generalized anxiety disorder; Narcissistic personality disorder; Spondylolisthesis, lumbar region 12/28/2024 1:00 PM EST - 12/28/2024 11:59 PM EST Hospital Encounter Department of Radiation Oncology [address] [place] [address] Susy Murphy PA-C Left without seen Discharge Disposition: Home or Self Care 12/28/2024 Telephone [facility] [address] [place] [phone] Ja Holley MD 12/28/2024 Orders Only [facility] [address] [place] [phone] Jamari Ellison, DO Primary osteoarthritis of both shoulders (Primary Dx) 12/28/2024 Telephone [facility] [address] [place] [address] Jamari Ellison, DO ? Appt w/Dr Ellison 12/26/2024 Telephone [facility] [address] [place] [address] [address]rd Floor, [address] [place] [address] Asif Araiza MD, MS 12/18/2024 Telephone [facility] [address] [place] [address] Ja Holley MD Care Coordination ([facility]/) 12/15/2024 12:20 PM EDT - 12/15/2024 11:59 PM EDT Hospital Encounter [facility] [address] [address] Lincoln Burton, MELTER OPERATOR Discharge Disposition: Home or Self Care 12/13/2024 Telephone [facility] [address] [place] [address] Emile Blake MD Recall colonoscopy/ Add EGD? 12/13/2024 Telephone [place] [address] [place] [address] Nicole Church [place] Forms & Paperwork ([facility] , 12/12/24) 12/07/2024 Telephone [facility] [address] [place] [address] Louise Go[facility] Imaging Follow Up 11/28/2024 Refill [facility] [address] [place] [address] Emile Blake MD Medication Refill 11/15/[address] [place] [address] Ja Holley MD Referral; Request For Order(s) 11/01/2024 3:00 PM EDT Office Visit [address] [place] [address] Ja Holley MD Essential (primary) hypertension (Primary Dx); Type 2 diabetes mellitus without complication, without long-term current use of insulin; Degenerative disc disease, cervical; Generalized anxiety disorder; Prostate cancer; Gastroesophageal reflux disease without esophagitis from Last 3 Months Immunizations Immunization Administration Dates Next Due COVID-19 (Pre-12/13) Pfizer Vaccine, mRNA, PF 10/31/2021,05/13/2020,04/14/2020 INFLUENZA, SPLIT VIRUS, TRIV ALENT W/ PRESERVATIVE IM 12/16/2016,12/06/2014,11/09/2013,12/18,11/18/2011,11/02/2010,12/25/2009 Influenza High-Dose Quadriva lent Preservative Free IM 11/18/2022,02/08/2022,10/31/2021,03/04,12/26/2020 Influenza High-Dose Trivalen t Preservative Free IM 12/19/2018,12/09/2015 Influenza Quadrivalent Adjuv anted Preservative Free IM 11/08/2019 Influenza Trivalent Adjuvant ed Preservative free IM 11/04/2024,12/06/2023,11/22/2017 Pneumococcal conjugate PCV13 12/16/2016 Pneumococcal polysaccharide PPSV23 12/27/2019 RSV Vaccine (bivalent) 02/25/2023 Td, unspecified formulation 12/09/2008, 8 Tdap 02/25/2023,12/27/2019 Zoster recombinant 09/14/2017,06/03/2017 Family History Medical History [...] 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 Not on file Not on file Not on file disabled Not on file Not on file Not on file Last Filed Vital Signs Vital Sign Reading Time Taken Comments Blood Pressure 135/79 01/25/2025 1:08 PM EST Pulse 71 01/25/2025 1:08 PM EST Temperature 36.4 C (97.5 F) 01/25/2025 1:08 PM EST Respiratory Rate 18 01/25/2025 1:08 PM EST Oxygen Saturation 98% 01/25/2025 1:08 PM EST Inhaled Oxygen Concentration - - Weight 88 kg (194 lb) 01/25/2025 1:08 PM EST Height 182.9 cm (6' 0.01 ) 01/25/2025 1:08 PM ES T Body Mass Index 26.3 01/25/2025 1:08 PM EST Plan of Treatment Upcoming Encounters Date Type Department Care Team (Late st Contact Info) Description 02/19/2025 3:00 PM EST Office Visit See [facility] Medicine [address] [place] [address] [place] [address] Ja Holley MD [address] [facility] [place] [address] 04/30/2025 10:30 AM EDT Office Visit [facility] [address] [place] [address] [place] [address] Fredi Elaine DO [address] [place] [address] 05/06/2025 12:00 PM EDT Appointment Department of Radiation Oncology [address] [place] [address] Lincoln Burton NP [address] [place] [address] [email or web address] 07/22/2025 9:40 AM EDT Office Visit [facility] [address] [place] [address] Dr [address] Floor, [address] [place] [address] Asif Araiza MD, MS [address] [facility] [place] [address] [email or web address] [email or web address] Procedures Name Priority Associated Diagnoses Date/Ti me COLONOSCOPY Gastroesophageal reflux disease with esophagitis without hemorrhage ESOPHAGOGASTRODUODENOSCOPY Gastroesophageal reflux disease with esophagitis without hemorrhage Health Maintenance Due Date Last Done Comments COLOGUARD 09/08/1995 FIT TEST 09/08/1995 FOBT 09/08/1995 SIGMOIDOSCOPY 09/08/1995 VIRTUAL COLONOSCOPY 09/08/1995 DIABETIC EYE EXAM 11/09/2023 11/08/2022 COLONOSCOPY 03/10/2025 03/10/2022, 01/20/2017 COLORECTAL CANCER SCREENING 03/10/2025 HEMOGLOBIN A1C 04/23/2025 10/24/2024, 05/, 12/15/2023, Additional history exists COVID-19 VACCINE (2024- season) 2025 11/04/2024, 12/06/2023, 11/18/2022, Additional history exists URINE MICROALBUMIN/CREATININE RATIO 06/30/2025 06/30/2024, 03/30/2023, 01/04/2023, Additional history exists BLOOD PRESSURE 07/26/2025 01/25/2025 DEPRESSION SCREENING 01/02/2026 01/02/2025, 11/02/19 HEPATITIS A VACCINES (1 of 2 - Risk 2-dose series) 01/03/2026 Postponed from 1969 (Patient Declines / Guardian Declines) Adult Td,Tdap Booster 02/25/2033 02/25/2023 , 12/27/2019, 12/09/2008, Additional history exists HEPATITIS C SCREENING Completed 03/28/2017 , 03/28/2017, 03/28/2017 ZOSTER VACCINES Completed 09/14/2017, 06/03/2017 PNEUMOCOCCAL VACCINES (50+ years) Completed 12/27/2019, 12/16/2016 RSV VACCINE Completed 02/25/2023 INFLUENZA VACCINE Completed 11/04/2024, , 11/18/2022, Additional history exists REPEAT PHQ Completed 01/02/2025, 11/01/2024 SMOKING STATUS SCREENING (Once After 26 Yrs) Completed 01/25/2025 HIB VACCINES Aged Out No longer eligi ble based on patient's age to complete this topic MENINGOCOCCAL VACCINES (ACWY) Aged Out No longer eligible based on patient's age to complete this topic MENINGOCOCCAL VACCINES (B) Aged Out N o longer eligible based on patient's age to complete this topic Medical Devices Implanted Type Area Managing Director Device Identifier Shelf Expiration Date Model / Serial / Lot Mesh Graft 1.6x1.9in 4.1 4.8cm Lg Perfix Polypropylene Monofilament Plug Inguinal Hernia Soft Tissue Repair Cs/2ea - [id number] Implanted:Qty: 1 on 11/05/2020 by Monique Cuenca MD at [facility] STANDARD Left: Inguinal DAVOL 06/18/2025 [id number] / / [id number] Mesh Surgical 1 32/32in Hernia Prolene 3d Polypropylene Patch Bx/3ea - [id number] Implanted:Qty: 1 on 11/05/2020 by Monique Cuenca MD at [facility] STANDARD N/A: Umbilical JNJ ETHICON / DIVISION OF J 04/20/2024 [id number] / / [id number] Procedures Procedure Name Priority Date/Time Associated Diagnosis Comments POCT SARS-COV-2, INFLUENZA A/B, RSV, PCR Routine 01/25/2025 1:21 PM EST PSA DIAGNOSTIC (MONITORING) Routine 01/21/2025 11:04 AM EST Prostate cancer POCT GLUCOSE Routine 01/11/2025 9:54 AM EST POCT GLUCOSE Routine 01/11/2025 9:38 AM EST JOINT ASPIRATION WITH FLUOROSCOPY GUIDANCE (IR) Routine 01/11/2025 9:28 AM EST Primary osteoarthritis of both shoulders PSA DIAGNOSTIC (MONITORING) Routine 12/15/2024 12:26 PM EDT Prostate cancer HEMOGLOBIN A1C Routine 10/24/2024 12:33 PM EDT Type 2 diabetes mellitus without complication, without long-term current use of insulin MICROALBUMIN/CREATI NINE RATIO, RANDOM URINE Routine 06/30/2024 9:39 AM EDT Type 2 diabetes mellitus without complication, without long-term current use of insulin DIABETES EYE EXAM FOR RESULT ENTRY ONLY Routine 11/08/2022 COLONOSCOPY FOR RESULT ENTRY ONLY Routine 03/10/2022 HEPATITIS C ANTIBODY, QUALITATIVE Routine 03/28/2017 1:35 PM EST Abdominal distention from Last 3 Months or Most Recently Relevant to Health Maintenance Results * POCT SARS-CoV-2, Influenza A/B, RSV, PCR (01/25/2025 1:21 PM EST) [facility] SARS-Cov-2 PCR Negative Negative 01/25/2025 2:[address] PM EST [facility] Influenza A Negative Negative 01/25/2025 2:00 PM EST [facility] POC Influenza B Negative Negative 01/25/2025 2:[address] [facility] RSV PCR Negative Negative 01/25/2025 2:[address] PM EST [facility] Swab (Anterior Nares) 01/25/2025 1:21 PM EST 01/25/2025 2:00 PM EST Nidia Angelo PA-C LAB POCT DOCKED DEVICE UNSO LICTED RESULTS Final Result Performing Organization Address City/[facility]/ZIP Co de Phone Number [facility] [address] [address], [place] [phone] * Prostate Specific Antigen (PSA), Monitoring (01/21/2025 11:04 AM EST) Only the most recent of2 resultswithin the time period is included. PSA Monitoring 2.06 ng/mL 01/21/2025 12:35 PM EST [facility] Comment:Post radical prostat ectomy results should be <0.1 ng/mL. Post therapy for other types of treatment should be <1.0 ng/mL. Blood (Blood) Venipuncture / Unknown 01/21/2025 11:04 AM EST 01/21/2025 11:46 AM EST [facility] - 01/21/2025 12:35 PM EST Test performed by Maricruz electrochemiluminescent immunoassay (ECLIA). Results obtained by assays using different manufacturers or methods may not be comparable and cannot be used interchangeably for patient monitoring. Lincoln Burton MELTER OPERATOR LAB BLOOD BKR ORDERABLES F inal Result Performing Organization Address City/[facility]/ZIP Co de Phone Number [address] [address] * POCT Glucose (01/11/2025 9:54 AM EST) Only the most recent of2 resultswithin the time period is included. Glucose 94 70 - 99 mg/dL 01/11/2025 9:55 AM EST [facility] Blood (Blood) 01/11/2025 9:5 4 AM EST 01/11/2025 9:55 AM EST us Frank Stephenson MD LAB POCT DOCKED DEVIC E UNSOLICTED RESULTS Final Result [facility] [address] [place] [address] * JOINT ASPIRATION WITH FLUOROSCOPY GUIDANCE (IR) (01/11/2025 9:28 AM EST) Anatomical Region Laterality Modality X-Ray Angiograph y Narrative 01/11/2025 11:29 AM EST Impression: 1. Ultrasound guided bilateral shoulder joint steroid injections under ultrasound guidance. Of note, patient is a type 2 diabetic. He developed symptomatic hypoglycemia this morning (49) despite having eaten breakfast. He does not take any diabetic medications. Symptoms and BGL improved with food. History: Patient with history of bilateral shoulder pain intra-articular steroid injection. Technical Operations Specialist: Adriana Magaña PA-C Anesthesia: Local anesthesia was obtained with1% lidocaine. Contrast: n/a Other Medications: Depo-Medrol 60 mg intra-articular into each shoulder (120 mg total) Bupivacaine 0.25% 2 mL intra-articular (4 mL total) Lidocaine 1 % 1 mL intra-articular into each shoulder (2 mg total) Estimated Blood Loss: None Specimens: None Complications: None immediate Disposition: Stable on discharge home. Description of Procedure & Findings: Written and oral informed consent was obtained from the patient (or disability representative) after explaining all risks and benefits of the procedure as well as alternatives and right to refuse. Patient was brought to the angiography suite. Patient verification and a timeout procedure were performed as per standard hospital procedure. The shoulder was exposed and prepped in usual sterile fashion. All elements of maximum sterile barrier were used including mask, cap, gloves, sterile drapes, hand hygiene and cutaneous antisepsis with 2% chlorhexidine. The right shoulder was addressed first. Using ultrasound guidance, a 22 gauge spinal needle was advanced toward and subsequently into the joint space. Lidocaine easily instilled. The therapeutic steroid injection was carried out. The needle was removed and manual compression was applied. A dry sterile dressing was applied. Images saved in the patient's electronic medical record. Next the left shoulder was addressed. Using ultrasound guidance, a 22 gauge spinal needle was advanced toward and subsequently into the joint space. Lidocaine easily instilled. The therapeutic steroid injection was carried out. The needle was removed and manual compression was applied. A dry sterile dressing was applied. Images saved in the patient's electronic medical record. Dr. Frakn Stephenson was the attending interventional radiologist for this procedure. us Jamari Ellison DO IMG IR Final Resul t * (ABNORMAL) Hemoglobin A1c (10/24/2024 12:33 PM EDT) HEMOGLOBIN A1C 6.1(H) 4.3 - 5.8 % [facility] Blood 10/24/2024 12:3 3 PM EDT 10/24/2024 12:44 PM EDT Fredi Elaine LAB BLOOD BKR ORDERABLES Final R esult [address] [address] * Microalbumin/creatinine ratio, random urine (06/30/2024 9:39 AM EDT) URINE MICROALBUMIN <1.2 0 - 2.3 mg/dL [facility] URINE CREATININE 39 mg/dL [facility] MICROALB/CRE RATIO NOT CALCULATED 0 - 20 mg/g Cre [facility] Comment:due to Microalbumin <1.2 Urine (Urine) 06/30/2024 9:3 9 AM EDT 06/30/2024 9:41 AM EDT Fredi Elaine LAB URINE ORDERABLES Final Resul t Performing Organization Address City/[facility] Co de Phone Number [address] [address] * DIABETES EYE EXAM FOR RESULT ENTRY ONLY (11/08/2022) us Historical Provider HEALTH MAINTENANCE Edited Result - Final * COLONOSCOPY FOR RESULT ENTRY ONLY (03/10/2022) us Ja Holley MD HEALTH MAINTENANCE Edited Result - Final * Hepatitis C antibody, qualitative (03/28/2017 1:35 PM EST) HCV Negative Negative [facility] Comment: This is a screening test and should be confirmed with molecular testing Blood 03/28/2017 1:35 PM EST 03/28/2017 1:39 PM EST us Emile Blake MD LAB BLOOD BKR ORDERABLES Fin al Result [facility] [address] [place] [address] from Last 3 Months or Most Recently Relevant to Health Maintenance Additional Health Concerns Infection Onset Date Last Indicated Resp-Risk 01/25/2025 01/25/2025 Insurance MEDICARE PART A & B [facility] MEDICARE PART A & B Member Subscriber Plan / Payer ( fective 2015-Present) Name:Albert Green Member ID:[id number] Relation to Subscriber:Self Name:Albert Green Subscriber ID:[id number] Payer ID:[id number] Group ID:Not on file Type:Medicare Address: [employer] [address] [place] [address] * Guarantor: Albert Green Account Type Relation to Patient Date of Phone Billing Address Personal/Family Self [address] [place] [address] [address] [address] MEDICARE PART A & B Member Subscriber Plan / Payer ( fective 2015-Present) Name:Albert Green Member ID:[id number] Relation to Subscriber:Self Name:Albert Green Subscriber ID:[id number] Payer ID:[id number] Group ID:Not on file Type:Medicare Address: [employer] [address] [place], [place] [id number] [place] [address] MEDICARE PART A & B Member Subscriber Plan / Payer ( fective 2015-Present) Name:Albert Green Member ID:[id number] Relation to Subscriber:Self Name:Albert Green Subscriber ID:[id number] Payer ID:[id number] Group ID:Not on file Type:Medicare Address: [employer] [address] [place], [place] [id number] [employer] MEDIC[employer] PART A & B Member Subscriber Plan / Payer ( fective 2015-Present) Name:Albert Green Member ID:[id number] Relation to Subscriber:Self Name:Albert Green Subscriber ID:[id number] Payer ID:[id number] Group ID:Not on file Type:Medicare Address: [employer] [address] [place], [place] [phone] [place] MEDICARE PART A & B [facility] B Member Subscriber Plan / Payer (Ef fective 2015-Present) Name:Albert Green Member ID:[id number] Relation to Subscriber:Self Name:Albert Green Subscriber ID:[id number] Payer ID:[id number] Group ID:Not on file Type:Medicare Address: [employer] [address] [place] [phone] [facility] Member Subscriber Plan / Payer (Ef fective 2015-Present) Name:Norma Albert Parker Member ID:[id number] Relation to Subscriber:Self Name:Albert Green Subscriber ID:[id number] Payer ID:[id number] Group ID:Not on file Type:Medicare Address: [employer] [address] [place], [place] [address]HEALTH MEDICARE PART A & B Member Subscriber Plan / Payer (Ef fective 2015-Present) Name:Norma Albert Parker Member ID:[id number] Relation to Subscriber:Self Name:Albert Green Subscriber ID:[id number] Payer ID:[id number] Group ID:Not on file Type:Medicare Address: [employer] [address] [place], [place] [id number] [place] [address] Advance Directives For more information, please contact: [phone] (9AM - 5PM [facility], Tuesday-Tuesday) Documents on File Type Date Recorded Patient Hat Trimmer Expl anation Healthcare Proxy 08/04/2018 2:10 PM HC PRO XY * Full Code (Latest Code Status on File) Date Activated Date Inactivated Comments 11/05/2020 11:05 AM Question Answer Comments Code Status Confirmed With: Patient Care Teams Drafting Supervisor Relationship Specialty Start Date End Date Ja Holley MD [address] [place] [address], [address] [place] [address] PCP - General Internal Medicine 07/23/20 Emile Blake MD [address] [place] [address] Gastroenterology 10/31/18 Frank Mak MD [address] [place] [address], [address] [place] [address] [email or web address] Physical Medicine and Rehabilitation 11/14/20 Jamari Ellison DO [address] [place] [address] Orthopedics & Sports Medicine, [place] [address] Orthopedic Surgery 07/24/21 Fredi Unger MD [address] [place] [address] [place] [address] Ophthalmology 07/24/21 Elroy Calderon MD [address] [place] [address], [address] [place] [address] [email or web address] Urology 10/27/21 Ja Holley MD [address] [place] [address], [address] [place] [address] Insurance Assigned Provider 05/28/23 Bartolo Morgan MD [address] [place] [address] Psychiatry 10/08/22 Maximino Dorado MD, PhD [address] [place] [address] [email or web address] Radiation Oncology 05/03/23 Lincoln Thomson MD [address] [place] [address], [address]nd [place] [address] Physical Medicine and Rehabilitation 06/26/23 Ky, Dhaval Alvarado MD [address] [place] [address] [address] [place] [address] Neurosurgery 07/07/23 Additional Source Comments The information contained in this document represents components of the legal health record. It is not the complete legal health record.[facility]
--- OUTSIDE RECORDS SUMMARY | 2025-01-31 06:34 | XMS_ITS | Encounter Summary ---
Author Organization [facility] Address [address] [place] [address] Phone Care Team Providers Care District Operations Manager Name Role Phone Ja Holley MD Primary Care Provider [phone] Encounter Details Date Type Department Care Team (Late st Contact Info) Description 07/19/2024 Documentation Only [facility], [address] [place] [address] Manuela Torres [address] [place] [address] Social History Tobacco Use Types [...] on filedocumented in this encounter Care Teams District Operations Manager Relationship Specialty Start Date End Date Ja Holley MD [address] [place] [address], [address] [place] [address] PCP - General Internal Medicine 02/21/24 documented as of this encounter
--- OUTSIDE RECORDS SUMMARY | 2025-01-31 06:34 | XMS_ITS | Encounter Summary ---
Author Organization [facility] Address [address] [place] [address] Phone Care Team Providers Care Air Export Agent Name Role Phone Emile Blake MD Unavailable [phone] Ja Holley MD Primary Care Provider + [phone] Frank Mak MD Unavailable [phone] Jamari Ellison DO Unavailable [phone] Fredi Unger MD Unavailable [phone] Elroy Calderon MD Unavailable [phone] Ja Holley MD Unavailable [phone] Bartolo Morgan MD Unavailable [phone] Molly Spring RN Unavailable [email or web address] Maximino Dorado MD, PhD Unavailable [phone] Lincoln Thomson MD Unavailable [phone] Dhaval Slater MD Unavailable Encounter Details Date Type Department Care Team (Late st Contact Info) Description 10/14/2023 Procedure Pass [facility] [place], [address] [address] Social History Tobacco Use Types Packs/Day Years [...] 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 file [...] Description 02/19/2025 3:00 PM EST Office Visit [facility] Medicine [address] [place] [address] [place] [address] Ja Holley MD [address] [facility], [address] [place] [address] 04/30/2025 10:30 AM EDT Office Visit [facility] [address] [place] [address] [place] [address] Fredi Elaine DO [address] [place] [address] 05/06/2025 12:00 PM EDT Appointment Department of Radiation Oncology [address] [place] [address] Lincoln Burton NP [address] [place] [address] [email or web address] 07/22/2025 9:40 AM EDT Office Visit [facility] [address] [place] [address] [address]rd Floor, [address] [place] [address] Asif Araiza MD, MS [address] [facility], [address] [place] [address] [email or web address] Scheduled Procedures [...] documented as of this encounter Care Teams Air Export Agent Relationship Specialty Start Date End Date Ja Holley MD [address] [facility], [address] [place] [address] [email or web address] PCP - General Internal Medicine 07/23/20 Emile Blake MD [address] [place] [address] [email or web address] Gastroenterology 10/31/18 Frank Mak MD [address] [place] [address], [address] [place] [address] [email or web address] Physical Medicine and Rehabilitation 11/14/20 Jamari Ellison DO [address] [place] [address] Orthopedics & Sports Medicine, [place] [address] Orthopedic Surgery 07/24/21 Fredi Unger MD [address] [place], [place] [address], [place] [address] Ophthalmology 07/24/21 Elroy Calderon MD [address] [place] [address], [address] [place] [address] Urology 10/27/21 Ja Holley MD [address] [place] [address], [address] [place] [address] Insurance Assigned Provider 05/28/23 Bartolo [place] MD [address] [place] [address] Psychiatry 10/08/22 Molly Spring RN [address] [place] [address] [email or web address] Representative 02/07/23 10/07/24 Maximino Dorado MD, PhD [address] [place] [address] [email or web address] Radiation Oncology 05/03/23 Lincoln Thomson MD [address] [place] [address], 2nd [place] [address] [email or web address] Physical Medicine and Rehabilitation 06/26/23 Dhaval Slater MD [address] [place] [address] Neurosurgery 07/07/23 documented as of this encounter Additional Source Comments The information contained in this document represents components of the legal health record. It is not the complete legal health record.[facility]
--- OUTSIDE RECORDS SUMMARY | 2025-01-31 06:34 | XMS_ITS | Encounter Summary ---
Author Organization [facility] Address [address] [place] [address] Phone Care Team Providers Care Compliance Director Name Role Phone Emile Blake MD Unavailable [phone] Andrei Coon DO Primary Care Provider [phone] Lupis Copeland MD Primary Care Provider [phone] Gordon Moralez MD Primary Care Provider Ja Holley MD Primary Care Provider [phone] Frank Mak MD Unavailable Alfonzo Perkins MD Unavailable Rosalia Vargas RN Unavailable [phone] Jamari Ellison DO Unavailable Fredi Unger MD Unavailable [phone] Elroy Calderon MD Unavailable [phone] Ja Holley MD Unavailable [phone] Bartolo Morgan MD Unavailable [phone] Molly Spring RN Unavailable [email or web address] Criss Cosme Unavailable [phone] Maximino Dorado MD, PhD Unavailable [phone] Maximino Dorado MD, PhD Unavailable [phone] Lincoln Thomson MD Unavailable Dhaval Slater MD Unavailable Reason for Referral * MRI/CAT Scan - Closed Specialty Diagnoses / Procedures Referred By Glory pablo Referred To Contact Radiology Diagnoses Spondylosis Lumbar radiculopathy Procedures MRI Lumbar Spine Frank Finney PA Phone: tel: Referral ID Status Reason Start Date Expiration Date Visits Re quested Visits Authorized [id number] Closed 12/04/2019 12/03/2020 1 1 Encounter Details Date Type Department Care Team (Latest Contact Info) Description 12/04/2019 Ancillary Orders Virtual Department [address] [place] [address] Frank Finney PA 16 [facility] [address] [place] [address] Spondylosis; Lumbar radiculopathy Social History Tobacco Use [...] 02/19/2025 3:00 PM EST Office Visit [facility] [address] [place] [address] [place] [address] Ja Holley MD [address] [place] [address], [address] [place] [address] 04/30/2025 10:30 AM EDT Office Visit [facility] [address] [place] [address] [place] [address] Fredi Elaine DO [address] [place] [address] [email or web address] 05/06/2025 12:00 PM EDT Appointment Department of Radiation Oncology [address] [place] [address] Lincoln Burton NP [address] [place], [place] [address] [address] [email or web address] 07/22/2025 9:40 AM EDT Office Visit [facility] [address] [place] [address] 3rd Floor, [address] [place] [address] Asif Araiza MD, MS [address] [facility], [address] [place] [address] [email or web address] Scheduled Procedures Name Priority Associated Diagnoses Date/Ti [...] spine MRI. POS - [id number] Frank SALES [facility] MR XSPECIALTY Final Result documented in this [...] documented as of this encounter Care Teams Compliance Director Relationship Specialty Start Date End Date Andrei Coon DO [address] [place] [address] [email or web address] PCP - General Family Medicine 01/08/19 01/03/20 Lupis Copeland MD [address] [place] [address] [email or web address] PCP - General Family Medicine 01/04/20 06/09/20 Gordon Moralez MD [address] [facility] [address] [place] [address] [email or web address] PCP - General 06/10/20 07/22/20 Ja Holley MD [address] [place] [address], [address] [place] [address] PCP - General Internal Medicine 07/23/20 Emile Blake MD [address] [address] Gastroenterology 10/31/18 Frank Mak MD [address] [place] [address], [address] [place] [address] [email or web address] Physical Medicine and Rehabilitation 11/14/20 Alfonzo Perkins MD [address] [place] [address] Psychiatry 02/01/21 10/07/22 Rosalia Vargas, KATEY [address] [place] [address] PHC Dragline Operator Helper 02/12/21 03/10/21 Jamari Ellison DO 4 [facility], [facility] [place] [address] [email or web address] Orthopedic Surgery 07/24/21 Fredi Unger MD [address] [place] [address] 2 [place] [address] Ophthalmology 07/24/21 Elroy Calderon MD [address] [place] [address], [address] [place] [address] [email or web address] Urology 10/27/21 Ja Holley MD [address] [place] [address], [address] [place] [address] [email or web address] Insurance Assigned Provider 05/28/23 Bartolo Morgan MD [address] [place] [address] Psychiatry 10/08/22 Molly Spring, KATEY [address] [place] [address] [email or web address] Dragline Operator Helper 02/07/23 10/07/24 Criss Cosme [address] [place] [address] [email or web address] PHC Community Health Worker 03/29/23 03/29/23 Maximino Dorado MD, PhD [address] [place] [address] [email or web address] Radiation Oncology 05/03/23 Maximino Dorado MD, PhD [address] [place] [address] [email or web address] Radiation Oncology 06/01/23 06/25/23 Lincoln Thomson MD [address] [place] [address], 2[address] [place] [address] Physical Medicine and Rehabilitation 06/26/23 Dhaval Slater MD [address] [place] [address] Dr CALIX [address] [place] [address] Neurosurgery 07/07/23 documented as of this encounter Additional Source Comments The information contained in this document represents components of the legal health record. It is not the complete legal health record.[facility]
--- OUTSIDE RECORDS SUMMARY | 2025-01-31 06:34 | XMS_ITS | Encounter Summary ---
Author Organization [facility] Address [address] [place] [address] Phone Care Team Providers Care Record Press Operator Name Role Phone Emile Blake MD Unavailable Andrei Coon DO Primary Care Provider [phone] Lupis Copeland MD Primary Care Provider Gordon Moralez MD Primary Care Provider Ja Holley MD Primary Care Provider [phone] Frank Mak MD Unavailable [phone] Alfonzo Perkins MD Unavailable Rosalia Vargas RN Unavailable [phone] Jamari Ellison DO Unavailable Fredi Unger MD Unavailable [phone] Elroy Calderon MD Unavailable [phone] Ja Holley MD Unavailable [phone] Bartolo Morgan MD Unavailable [phone] Molly Spring RN Unavailable [email or web address] Criss Cosme Unavailable [phone] Maximino Dorado MD, PhD Unavailable [phone] Maximino Dorado MD, PhD Unavailable [phone] Lincoln Thomson MD Unavailable [phone] Dhaval Slater MD Unavailable Reason for Referral * MRI/CAT Scan - Closed Specialty Diagnoses / Procedures Referred By Glory pablo Referred To Contact Radiology Diagnoses Cervical disc disorder with radiculopathy, unspecified cervical region Procedures MRI Cervical Spine Compa Monsalve MD Phone: tel: fax: Referral ID Status Reason Start Date Expiration Date Visits Re quested Visits Authorized [id number] Closed 03/13/2019 03/12/2020 1 1 Encounter Details Date Type Department Care Team ([facility] Contact Info) Description 03/13/2019 Ancillary Orders Virtual Department [address] [place] [address] Compa Monsalve MD [address] [address] Cervical disc disorder with radiculopathy, unspecified cervical [...] Description 02/19/2025 3:00 PM EST Office [facility] [address] [place] [address] [place] [address] Ja Holley MD [address] [place] [address], [address] [place] [address] 04/30/2025 10:30 AM EDT Office Visit [facility] [address] [place] [address] [place] [address] Fredi Elaine DO 22 [place] [address] 05/06/2025 12:00 PM EDT Appointment Department of Radiation Oncology [address] [place] [address] Lincoln Burton, MABLE [address] [place] [address] [email or web address] [place] [address] [email or web address] 07/22/2025 9:40 AM EDT Office Visit [facility] [address] Floor, [address] [place] [address] Asif Araiza MD, MS 22 [facility], [address] [place] [address] [email or web address] Scheduled Procedures Name Priority Associated Diagnoses Date/Ti [...] patient's symptoms and neurological exam. POS - [id number] Narrative 03/20/2019 10:18 AM EST MRI CERVICAL [...] patient's symptoms and neurological exam. POS - [id number] Compa Monsalve MD IMG MR XSPECIALTY Fin [...] documented as of this encounter Care Teams Record Press Operator Relationship Specialty Start Date End Date Andrei Coon DO [address] [place] [address] [email or web address] PCP - General Family Medicine 01/08/19 01/03/20 Lupis Copeland MD [address] [place] [address] [email or web address] PCP - General Family Medicine 01/04/20 06/09/20 Gordon Moralez MD [address] [address] Saji [email or web address] PCP - General 06/10/20 07/22/20 Ja Holley MD [address] [place] [address], [address] [place] [address] PCP - General Internal Medicine 07/23/20 Emile Blake MD [address] [address] Gastroenterology 10/31/18 Frank Mak MD [address] [place] [address], [address] [place] [address] [email or web address] Physical Medicine and Rehabilitation 11/14/20 Alfonzo Perkins MD [address] [place] [address] Psychiatry 02/01/21 10/07/22 Rosalia Vargas, RN 30 [place] [address] PHC Director Of Accounting 02/12/21 03/10/21 Jamari Ellison DO 4 [facility] Orthopedics & Sports Medicine, [facility] [place] [address] [email or web address] Orthopedic Surgery 07/24/21 Fredi Unger MD [address] [place] [address] 2 [place] [address] Ophthalmology 07/24/21 Elroy Calderon MD [address] [place] [address], [address] [place] [address] [email or web address] Urology 10/27/21 Ja Holley MD [address] [place] [address], [address] [place] [address] [email or web address] Insurance Assigned Provider 05/28/23 Bartolo Morgan MD [address] [place] [address] Psychiatry 10/08/22 Molly Spring RN [address] [place] [address] [email or web address] PHCM Director Of Accounting 02/07/23 10/07/24 Criss Cosme 10 [place] [address] [email or web address] PHCM Community Health Worker 03/29/23 03/29/23 Maximino Dorado MD, PhD [address] [place] [address] [email or web address] Radiation Oncology 05/03/23 Maximino Dorado MD, PhD [address] [place] [address] [email or web address] Radiation Oncology 06/01/23 06/25/23 Lincoln Thomson MD [address] [place] [address], 2nd [place] [address] Physical Medicine and Rehabilitation 06/26/23 Dhaval Slater MD [address] [place] [address] [place] [address] Neurosurgery 07/07/23 documented as of this encounter Additional Source Comments The information contained in this document represents components of the legal health record. It is not the complete legal health record.[facility]
--- OUTSIDE RECORDS SUMMARY | 2025-01-31 06:34 | XMS_ITS ---
Author Organization [facility] Address [address] [place] [address] [place] [address] Phone Care Team Providers Care Fulling Machine Operator Name Role Phone Emile Blake MD Unavailable Ja Holley MD Primary Care Provider [phone] Frank Mak MD Unavailable Jamari Ellison DO Unavailable Fredi Unger MD Unavailable Elroy Calderon MD Unavailable [phone] Ja Holley MD Unavailable Bartolo Morgan MD Unavailable Maximino Dorado MD, PhD Unavailable [phone] Lincoln Thomson MD Unavailable Dhaval Slater [...] He will try to do this at [facility] I did inform him this can [...] evaluation by Dr. Slater in 2019 and 2022 did not recommend surgery (symptoms do not [...] current pain management regimen. -Consider consultation with apprentice painter hand for further evaluation and treatment options. Assessment [...] 9:27 AM EST): Sees pain clinic at [facility]- failed numerous medications in the past [...] him for planning to work with the [facility] pain clinic which I think is likely [...] to have a left knee replacement at [facility]. He will likely need a preop with me prior. Assessment & Plan (07/24/2021 10:15 AM EDT): Follow-up as planned with orthopedics he is planning to discuss possible knee replacement surgery Assessment & Plan (06/18/2021 9:19 AM EDT): Patient is considering total knee replacement. Asked him to follow-up with orthopedics. He is considering seeing an orthopedist at [facility] for Vitamin D deficiency 03/30/2021 Assessment & [...] AM EST): Lab Results Component Value Date JTID2WASS 6.6 (*) 03/29/2023 GHBA1C 6.1 (H) 10/24/2024 [...] and exercise and he has seen the top edge beveler and has learned a great deal and [...] does have diabetes. He will see a manager green today and continue working on his diet. We will recheck his hemoglobin A1c at his next appointment S/P inguinal hernia repair using synthetic patch 11/18/2020 Prostate cancer 10/09/2020 Overview (06/01/2023): Diagnosed in 2019, Tatyana 3+3. 2023, disease progressing. April 2023 started brachytherapy at [facility] Assessment & Plan (01/03/2025 9:27 AM EST): Saw Dr. Calderon 05/2024- plan was to f/u in 1 year with PSA. Also follows at [facility] Per [facility] rad onc visit note 08/2024: Prostate [...] Considering having intermittent radium seeds implanted in [place]. Follow-up as planned with radiation oncology. Assessment [...] AM EST): Per prior note: L4-5, xray 2016, retrolisthesis of 6 mm of L2-3, anterolisthesis 6 mm L5-S1 November 2019 Sees pain clinic at [facility]. Assessment & Plan (12/15/2023 9:38 AM [...] considering. No follow-up as planned with the [place] pain clinic. Degenerative disc disease, cervical 09/25/2020 [...] treated prejudicially and was never accepted to [employer]. He did study medicine in [...] also asked him to start services with [employer]UR[facility] [employer]ER. Assessment & Plan (11/14/2020 12:50 PM EDT): [...] to try and establish care longitudinally with SECURITY OFFICER or [facility], and while awaiting for this [...] that continued treatments will help in this consultant internship I expect will help his blood pressure [...] clinical support options, I recommend he contact [facility], or service net and get on their [...] for him to see someone through the [facility] network. There is only brief comment as [...] his 20s. Managed by Dr. Finney at [facility]. MRI lumbar spine November [...] treatment options with implantable devices with the [facility] pain clinic. Follow-up as scheduled. Assessment [...] ibuprofen with acetaminophen. Follow-up as planned with [facility], considering another steroid injection. [...] to look into getting involved with the [employer] program. I think this is a very [...] Calderon. He will follow-up as scheduled with [facility] pain Assessment & Plan (12/26/2020 10:02 AM [...] CPAP does help- [facility] for new supplies Assessment & Plan (07/06/2023 11:23 AM EDT): Doing well with CPAP, should be observed postoperatively for possible hypoventilation. Insomnia 09/19/2008 Assessment & Plan (01/03/2025 9:27 AM EST): As above- BRIANA Current Treatment and Therapy Plans No current [...] a DXA scan that was done at [facility] on 10/03/2020 his T-scores are all [...] radiculopathy 12/10/2008 025 Overview (02/28/2024): Dr Rodriguez, [facility]
--- OUTSIDE RECORDS SUMMARY | 2025-01-31 06:34 | XMS_ITS | Encounter Summary ---
Author Organization [facility] Address [address] [place] [address] Phone Care Team Providers Care Police Justice Name Role Phone Emile Blake MD Unavailable [phone] Andrei Coon DO Primary Care Provider [phone] Lupis Copeland MD Primary Care Provider [phone] Gordon Moralez MD Primary Care Provider Ja Holley MD Primary Care Provider [phone] Frank Mak MD Unavailable [phone] Alfonzo Perkins MD Unavailable [phone] Rosalia Vargas RN Unavailable [phone] Jamari Ellison DO Unavailable Fredi Unger MD Unavailable [phone] Elroy Calderon MD Unavailable [phone] Ja Holley MD Unavailable [phone] Bartolo Morgan MD Unavailable [phone] Molly Spring RN Unavailable [email or web address] Criss Cosme Unavailable [phone] Maximino Dorado MD, PhD Unavailable [phone] Maximino Dorado MD, PhD Unavailable [phone] Lincoln Thomson MD Unavailable Dhaval Slater MD Unavailable Encounter Details Date Type Department Care Team (Late st Contact Info) Description 12/04/2019 Procedure [facility], [facility] - [address] [address] Social History Tobacco Use Types Packs/Day Years [...] Description 02/19/2025 3:00 PM EST Office Visit [address] [address] Ja Holley MD [address] [place] [address], [address] [place] [address] 04/30/2025 10:30 AM EDT Office Visit [facility] [address] [place] [address] Fredi Elaine DO [address] [place] [address] 05/06/2025 12:00 PM EDT Appointment Department of Radiation Oncology [address] [place] [address] Lincoln Burton, COMMERCIAL AGENT [facility] [place] [address] [email or web address] 07/22/2025 9:40 AM EDT Office Visit [facility] [address] [place] [address] 3rd Floor, [address] [place] [address] Asif Araiza MD, MS 22 [facility], [address] [place] [address] [email or web address] [...] documented as of this encounter Care Teams Police Justice Relationship Specialty Start Date End Date Andrei Coon DO [address] [place] [address] [email or web address] PCP - General Family Medicine 01/08/19 01/03/20 Lupis Copeland MD [address] [place] [address] [email or web address] PCP - General Family Medicine 01/04/20 06/09/20 Gordon Moralez MD [address] [address] [email or web address] g PCP - General 06/10/20 07/22/20 Ja Holley MD [address] [place] [address], [address] [place] [address] PCP - General Internal Medicine 07/23/20 Emile Blake MD [address] [place] [address] Gastroenterology 10/31/18 Frank Mak MD [address] [place] [address], [address] [place] [address] [email or web address] Physical Medicine and Rehabilitation 11/14/20 Alfonzo Perkins MD 45 [place] [address] Psychiatry 02/01/21 10/07/22 Rosalia Vargas, RN 30 [place] [address] PHC Results Engineer 02/12/21 03/10/21 Jamari Ellison DO [address] [place] [address] [facility] [place] [address] Orthopedic Surgery 07/24/21 Fredi Unger MD [address] [place] [address] Ophthalmology 07/24/21 Elroy Calderon MD [address] [place] [address], [address] [place] [address] [email or web address] Urology 10/27/21 Ja Holley MD [address] [place] [address], [address] [place] [address] [email or web address] Insurance Assigned Provider 05/28/23 Bartolo Morgan MD [address] [place] [address] Psychiatry 10/08/22 Molly Spring RN [address] [place] [address] [email or web address] PHC Results Engineer 02/07/23 10/07/24 Criss Cosme [address] [place] [address] [email or web address] [facility] Community Health Worker 03/29/23 03/29/23 Maximino Dorado MD, PhD [address] [place] [address] [email or web address] Radiation Oncology 05/03/23 Maximino Dorado MD, PhD [address] [place] [address] [email or web address] Radiation Oncology 06/01/23 06/25/23 Lincoln Thomson MD [address] [place] [address], 2nd [place] [address] [email or web address] Physical Medicine and Rehabilitation 06/26/23 Dhaval Slater MD [address] [place] [address] [place] [address] Neurosurgery 07/07/23 documented as of this encounter Additional Source Comments The information contained in this document represents components of the legal health record. It is not the complete legal health record.[facility]
--- OUTSIDE RECORDS SUMMARY | 2025-01-31 06:34 | XMS_ITS | Encounter Summary ---
Author Organization [facility] Address [address] [place] [address] Phone Care Team Providers Care Second Officer Name Role Phone Emile Blake MD Unavailable [phone] Lupis Copeland MD Primary Care Provider [phone] Gordon Moralez MD Primary Care Provider [phone] Ja Holley MD Primary Care Provider [phone] Frank Mak MD Unavailable Alfonzo Perkins MD Unavailable Rosalia Vargas RN Unavailable [phone] Jamari Ellison DO Unavailable [phone] Fredi Unger MD Unavailable Elroy Calderon MD Unavailable [phone] Ja Holley MD Unavailable [phone] Bartolo Morgan MD Unavailable [phone] Molly Spring RN Unavailable [email or web address] Criss Cosme Unavailable [phone] Maximino Dorado MD, PhD Unavailable [phone] Maximino Dorado MD, PhD Unavailable [phone] Lincoln Thomson MD Unavailable [phone] Dhaval Slater MD Unavailable Encounter Details Date Type Department Care Team (Late st Contact Info) Description 01/09/2020 Telephone [facility] Department of Orthopaedic Surgery, Foot & Ankle Service [address] [facility], 3rd Floor, [address] [place] [address] Joel Cardona MD [address] [facility] [address] [place] [address] Social History Tobacco Use Types Packs/Day Years [...] Description 02/19/2025 3:00 PM EST Office Visit [facility] [address] [place] [address] Ja Holley MD [address] [place] [address], [address] [place] [address] 04/30/2025 10:30 AM EDT Office Visit [facility] [address] [place] [address] [place] [address] Fredi Elaine DO 22 [place] [address] 05/06/2025 12:00 PM EDT Appointment Department of Radiation Oncology [address] [place] [address] Lincoln Burton, MABLE [address] [place] [address] ASB1-L2 [place] [address] [email or web address] 07/22/2025 9:40 AM EDT Office Visit [facility] [address] [place] [address] 3rd Floor, [address] [place] [address] Asif Araiza MD, MS 22 [facility], [address] [place] [address] [email or web address] [...] documented as of this encounter Care Teams Second Officer Relationship Specialty Start Date End Date Lupis Copeland MD [address] [place] [address] [email or web address] PCP - General Family Medicine 01/04/20 06/09/20 Gordon Moralez MD [address] [place] [address] Saji [email or web address] PCP - General 06/10/20 07/22/20 Ja Holley MD [address] [place] [address], [address] [place] [address] [email or web address] PCP - General Internal Medicine 07/23/20 Emile Blake MD [address] [place] [address] [email or web address] Gastroenterology 10/31/18 Frank Mak MD [address] [place] [address], [address] [place] [address] [email or web address] Physical Medicine and Rehabilitation 11/14/20 Alfonzo Perkins MD [address] [place] [address] [email or web address] Psychiatry 02/01/21 10/07/22 Rosalia Vargas RN 30 [place] [address] [email or web address] Commodity Director 02/12/21 03/10/21 Jamari Ellison DO [address] [place] [address] Orthopedics & Sports Medicine, [place] [address] [email or web address] Orthopedic Surgery 07/24/21 Fredi Unger MD [address] [place] [address] Ophthalmology 07/24/21 Elroy Calderon MD [address] [place] [address], [address] [place] [address] Urology 10/27/21 Ja Holley MD [address] [place] [address], [address] [place] [address] [email or web address] Insurance Assigned Provider 05/28/23 Bartolo Morgan MD [address] [place] [address] Psychiatry 10/08/22 Molly Spring RN [address] [place] [address] [email or web address] PHCM Commodity Director 02/07/23 10/07/24 Criss Cosme [address] [place] [address] [email or web address] PHC Community Health Worker 03/29/23 03/29/23 Maximino Dorado MD, PhD [address] [place] [address] [email or web address] Radiation Oncology 05/03/23 Maximino Dorado MD, PhD [address] [place] [address] [email or web address] Radiation Oncology 06/01/23 06/25/23 Lincoln Thomson MD [address] [place] [address] [email or web address] Physical Medicine and Rehabilitation 06/26/23 Dhaval Slater MD [address] [place] [address] [address] [place] [address] Neurosurgery 07/07/23 documented as of this encounter Additional Source Comments The information contained in this document represents components of the legal health record. It is not the complete legal health record.[facility]
--- OUTSIDE RECORDS SUMMARY | 2025-01-31 06:35 | XMS_ITS | Clinical Summary ---
Author Organization [facility] [address] [place] [address] Phone Care Team Providers Care Pick Remover Name Role Phone Ja Holley MD Primary Care Provider Allergies No known active allergies Medications amLODIPine (NORVASC) 5 MG tablet Take 1 tablet (5 mg total) by mouth every night 90 tablet 3 12/14/2024 6 Active olmesartan (BENICAR) 40 MG tablet Take 1 tablet (40 mg total) by mouth 1 (one) time each day 90 tablet 3 12/25/2024 6 Active Active Problems Problem Noted Date Diagnosed Date Essential (primary) hypertension 03/07/2024 Encounters Date Type Department Care Team Description 12/24/2024 Refill [facility] [address] [place] [phone] Nathan Bacon MD 12/13/2024 Refill [facility] [address]ette [address] [place] [phone] Nathan Bacon MD from Last 3 Months [...] Self [address] [place] [address] Medicare [place] * Guarantor: Albert Green Account Type Relation to Patient Date of Phone Billing Address Personal/Family Self [address] [place] [address] * Guarantor: Albert Green Account Type Relation to Patient Date of Phone Billing Address Personal/Family Self [address] [place] [address] Care Teams Pick Remover Relationship Specialty Start Date End Date Ja Holley MD [address] [place] [address], [address] [place] [address] PCP - General Internal Medicine 02/21/24
--- OUTSIDE RECORDS SUMMARY | 2025-01-31 06:35 | XMS_ITS | Encounter Summary ---
Author Organization [facility] Address [address] [place] [address] Phone Care Team Providers Care Medical Office Assistant Instructor Name Role Phone Emile Blake MD Unavailable Ja Holley MD Primary Care Provider Frank Mak MD Unavailable Alfonzo Perkins MD Unavailable Jamari Ellison DO Unavailable [phone] Fredi Unger MD Unavailable Elroy Calderon MD Unavailable [phone] Ja Holley MD Unavailable [phone] Bartolo Morgan MD Unavailable [phone] Molly Spring RN Unavailable [email or web address] Criss Cosme Unavailable [phone] Maximino Dorado MD, PhD Unavailable [phone] Maximino Dorado MD, PhD Unavailable [phone] Lincoln [place] MD Unavailable [phone] Dhaval Slater MD Unavailable Encounter Details Date Type Department Care Team (Late st Contact Info) Description 12/23/2021 Procedure Pass OR Admitting Dept - Virtual Department [address] [place], [place] [id number] Social History Tobacco Use Types Packs/Day Years [...] high school, GED, job training, learning the South Korean language, technical skills, or developing parenting skills)? 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 Not on file Not on file disabled Not on file Not on file Not on file documented as of this encounter Plan of Treatment Upcoming Encounters Date Type Department Care Team (Late st Contact Info) Description 02/19/2025 3:00 PM EST Office Visit [facility] Medicine [address] [place] [address] Ja Holley MD [address] [facility], [address] [place] [address] 04/30/2025 10:30 AM EDT Office Visit [facility] [address] [place] [address] Fredi Elaine DO 22 [place] [address] 05/06/2025 12:00 PM EDT Appointment Department of Radiation Oncology [address] [place] [address] Lincoln Burton NP [address] [place] [address] [email or web address] 07/22/2025 9:40 AM EDT Office Visit [facility] [address] [place] [address] 3rd Floor, [address] [place] [address] Asif Araiza MD, MS [address], [address] [place] [address] Scheduled Procedures Name Priority Associated Diagnoses Date/Ti [...] documented as of this encounter Care Teams Medical Office Assistant Instructor Relationship Specialty Start Date End Date Ja Holley MD [address] [place] [address], [address] [place] [address] PCP - General Internal Medicine 07/23/20 Emile Blake MD [address] [place] [address] Gastroenterology 10/31/18 Frank Mak MD [address] [place] [address], [address] [place] [address] [email or web address] Physical Medicine and Rehabilitation 11/14/20 Alfonzo Perkins MD [address] [place] [address] Psychiatry 02/01/21 10/07/22 Jamari Ellison DO [address] [place] [address] Orthopedics & Sports Medicine, [place] [address] Orthopedic Surgery 07/24/21 Fredi Unger MD [address] [place] [address] Ophthalmology 07/24/21 Elroy Calderon MD [address] [place] [address] Urology 10/27/21 Ja Holley MD [address] [place] [address], [address] [place] [address] [email or web address] Insurance Assigned Provider 05/28/23 Bartolo Morgan MD [address] [place] [address] Psychiatry 10/08/22 Molly Spring RN [address] [address] [email or web address] Fulfillment Mail Clerk 02/07/23 10/07/24 Criss Cosme [address] [place] [address] [email or web address] PHC Community Health Worker 03/29/23 03/29/23 Maximino Dorado MD, PhD [address] [place] [address] [email or web address] Radiation Oncology 05/03/23 Maximino Dorado MD, PhD [address] [place] [address] [email or web address] Radiation Oncology 06/01/23 06/25/23 Lincoln [place] MD [facility], 2nd [place] [address] [email or web address] Physical Medicine and Rehabilitation 06/26/23 Dhaval Slater MD [address] [place] [address] Dr CALIX [address] [place] [address] Neurosurgery 07/07/23 documented as of this encounter Additional Source Comments The information contained in this document represents components of the legal health record. It is not the complete legal health record.[facility]
--- OUTSIDE RECORDS SUMMARY | 2025-01-31 06:35 | XMS_ITS | Encounter Summary ---
Author Organization [facility] Address [address] [place] [address] Phone Care Team Providers Care Senior Finance Manager Name Role Phone Emile Blake MD Unavailable [phone] Ja Holley MD Primary Care Provider Frank Mak MD Unavailable Alfonzo Perkins MD Unavailable Rosalia Vargas RN Unavailable [phone] Jamari Ellison DO Unavailable Fredi Unger MD Unavailable Elroy Calderon MD Unavailable [phone] Ja Holley MD Unavailable Bartolo Morgan MD Unavailable Molly Spring RN Unavailable [email or web address] Criss Cosme Unavailable [phone] Maximino Dorado MD, PhD Unavailable [phone] Maximino Dorado MD, PhD Unavailable [phone] Lincoln [place] MD Unavailable Dhaval Slater MD Unavailable Reason for Visit * Reason Onset Date Comments pain clinic referral 11/21/2020 Encounter Details Date Type Department Care Team (Late st Contact Info) Description 11/21/2020 [facility]phone [facility] [address] [place] [address] Ja Holley MD [address] [place] [address] [email or web address] pain clinic referral Social History Tobacco Use [...] high school, GED, job training, learning the Jordanian language, technical skills, or developing parenting skills)? 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 Patient would like referral for [facility] pain clinic. Script and referral pended. * Ja Holley MD - 11/24/2020 11:35 AM EDT I sent in a prescription for venlafaxine. He can start taking that now and discontinue taking citalopram. During the transition between medications, he may feel mildly unwell, but this should gradually improve over a week or 2. [facility] pain clinic is not likely to be able to offer anything other than injections. I think he will have better luck at the [facility] pain clinic. If you would like referral there I can arrangethat. I suggest seeing the pain clinic there prior to seeing another surgeon. * Terrie Meyers RN - 11/24/2020 9:05 AM EDT Spoke with patient who calls to request [facility] Pain management referral. Would like to explore other modalities of treatment rather than injections and mediation. Referral pended. Patient also would like to see a back surgeon. Does PCP have recommendations at [facility], or [facility]? Patient requests new prescription. States currently taking half of Celexa and had discussed switching to Effexor at last OV. * Angel Toth 11/21/2020 1:37 PM EDT Albert called in, is not satisfied with his treatment from [facility], he would like to go to a pain clinic. Please contact and advise. documented in this encounter Plan of Treatment Upcoming Encounters Date Type Department Care Team (Late st Contact Info) Description 02/19/2025 3:00 PM EST Office Visit [facility] Medicine [address] [place] [address] [place] [address] Ja Holley MD [address] [place] [address], [address] [place] [address] 04/30/2025 10:30 AM EDT Office Visit [facility] [address] [place] [address] [place] [address] Fredi Elaine DO 22 [place] [address] 05/06/2025 12:00 PM EDT Appointment Department of Radiation Oncology [address] [place] [address] Lincoln Burton NP [address] [place] [address] [email or web address] 07/22/2025 9:40 AM EDT Office Visit [facility] [address] [place] [address] 3rd Floor, [address] [place] [address] Asif Araiza MD, MS 22 [facility], [address] [place] [address] Scheduled Procedures Name Priority Associated Diagnoses Date/Ti [...] documented as of this encounter Care Teams Senior Finance Manager Relationship Specialty Start Date End Date Ja Holley MD [address] [place] [address] [email or web address] PCP - General Internal Medicine 07/23/20 Emile Blake MD [address] [place] [address] Gastroenterology 10/31/18 Frank Mak MD [address] [place] [address] [email or web address] Physical Medicine and Rehabilitation 11/14/20 Alfonzo Perkins MD [address] [place] [address] Psychiatry 02/01/21 10/07/22 Rosalia Vargas, KATEY [address] [place] [address] [email or web address] PHCM Saddle Maker 02/12/21 03/10/21 Jamari Ellison DO [address] [place] [address] Orthopedics & Sports Medicine, [place] [address] [email or web address] Orthopedic Surgery 07/24/21 Fredi Unger MD [address] [place] [address] 2 [place] [address] Ophthalmology 07/24/21 Elroy Calderon MD [address] [place] [address], [address] [place] [address] [email or web address] Urology 10/27/21 Ja Holley MD [address] [place] [address], [address] [place] [address] [email or web address] Insurance Assigned Provider 05/28/23 Bartolo Morgan MD [address] [place] [address] Psychiatry 10/08/22 Molly Spring RN [address] [place] [address] [email or web address] Saddle Maker 02/07/23 10/07/24 Criss Cosme 10 [place] [address] [email or web address] Community Health Worker 03/29/23 03/29/23 Maximino Dorado MD, PhD [address] [place] [address] [email or web address] Radiation Oncology 05/03/23 Maximino Dorado MD, PhD [address] [place] [address] [email or web address] Radiation Oncology 06/01/23 06/25/23 Lincoln [place] MD [address] [place] [address], 2nd [place] [address] Physical Medicine and Rehabilitation 06/26/23 Dhaval Slater MD [address] [place] [address] [place] [address] Neurosurgery 07/07/23 documented as of this encounter Additional Source Comments The information contained in this document represents components of the legal health record. It is not the complete legal health record.[facility]
--- OUTSIDE RECORDS SUMMARY | 2025-01-31 06:35 | XMS_ITS | Encounter Summary ---
Author Organization [facility] Address [address] [place] [address] Phone Care Team Providers Care Window Glazier Name Role Phone Emile Blake MD Unavailable [phone] Ja Holley MD Primary Care Provider + [phone] Frank Mak MD Unavailable [phone] Jamari Ellison DO Unavailable [phone] Fredi Unger MD Unavailable [phone] Elroy Calderon MD Unavailable [phone] Ja Holley MD Unavailable [phone] Bartolo Morgan MD Unavailable [phone] Molly Spring RN Unavailable [email or web address] Maximino Dorado MD, PhD Unavailable [phone] Lincoln [place] MD Unavailable [phone] Dhaval Slater MD Unavailable Encounter Details Date Type Department Care Team (Late st Contact Info) Description 05/29/2024 Procedure Pass [facility], [address] [place] [address] Social History Tobacco Use Types Packs/Day Years [...] 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 Not on file Not on file Not on file documented as of this encounter Plan of Treatment Upcoming Encounters Date Type Department Care Team (Late st Contact Info) Description 02/19/2025 3:00 PM EST Office Visit [facility] Medicine [address] [place] [address] [place] [address] Ja Holley MD [address] [facility] [place] [address] 04/30/2025 10:30 AM EDT Office Visit [facility] [address] [place] [address] Fredi Elaine DO 22 [place] [address] 05/06/2025 12:00 PM EDT Appointment Department of Radiation Oncology [address] [place] [address] Lincoln Burton, MABLE [address] [place] [address] [email or web address] 07/22/2025 9:40 AM EDT Office Visit [facility] [address] [place] [address] 3rd Floor, [address] [place] [address] Asif Araiza MD, MS [address] [facility], [address] [place] [address] Scheduled Procedures Name Priority Associated Diagnoses Date/Ti nm COLONOSCOPY Gastroesophageal reflux disease with esophagitis without [...] documented as of this encounter Care Teams Window Glazier Relationship Specialty Start Date End Date Ja Holley MD [address] [place] [address], [address] [place] [address] PCP - General Internal Medicine 07/23/20 Emile Blake MD [address] [place] [address] Gastroenterology 10/31/18 Frank Mak MD [address] [place] [address], [address] [place] [address] [email or web address] Physical Medicine and Rehabilitation 11/14/20 Jamari Ellison DO [address] [place] [address] Orthopedics & Sports Medicine, [place] [address] Orthopedic Surgery 07/24/21 Fredi Unger MD [address] [place] [address] Ophthalmology 07/24/21 Elroy Calderon MD [facility], [address] [place] [address] Urology 10/27/21 Ja Holley MD [address] [place] [address], [address] [place] [address] [email or web address] Insurance Assigned Provider 05/28/23 Bartolo Morgan MD [address] [place] [address] Psychiatry 10/08/22 Molly Spring RN [address] [address] [email or web address] Tie Presser 02/07/23 10/07/24 Maximino Dorado MD, PhD [address] [place] [address] [email or web address] Radiation Oncology 05/03/23 Lincoln [place] MD [address] [place] [address], 2nd [place] [address] [email or web address] Physical Medicine and Rehabilitation 06/26/23 Dhaval Slater MD [address] [place] [address] Dr CALIX [address] [place] [address] Neurosurgery 07/07/23 documented as of this encounter Additional Source Comments The information contained in this document represents components of the legal health record. It is not the complete legal health record.[facility]
--- OUTSIDE RECORDS SUMMARY | 2025-01-31 06:35 | XMS_ITS | Encounter Summary ---
Author Organization [facility] Address [address] [place] [address] Phone Care Team Providers Care Insurance Territory Manager Name Role Phone Ja Holley MD Primary Care Provider Encounter Details Date Type Department Care Team (Late st Contact Info) Description 02/24/2024 Documentation Only [facility] [place], [address] [place] [address] [place]aina [place], [place] [address] [place] [address] Social History Tobacco Use Types [...] filedocumented in this encounter Care Teams Insurance Territory Manager Relationship Specialty Start Date End Date Ja Holley MD [address] [place] [address], [address] [place] [address] PCP - General Internal Medicine 02/21/24 documented as of this encounter
--- OUTSIDE RECORDS SUMMARY | 2025-01-31 06:35 | XMS_ITS | Encounter Summary ---
Author Organization [facility] Address [address] [place] [address] Phone Care Team Providers Care Textile Machinery Sales Representative Name Role Phone Emile Blake MD Unavailable Ja Holley MD Primary Care Provider Frank Mak MD Unavailable Alfonzo Perkins MD Unavailable Jamari Ellison DO Unavailable Fredi Unger MD Unavailable Elroy Calderon MD Unavailable [phone] Ja Holley MD Unavailable [phone] Bartolo Morgan MD Unavailable [phone] Molly Spring RN Unavailable [email or web address] Criss Cosme Unavailable [phone] Maximino Dorado MD, PhD Unavailable [phone] Maximino Dorado MD, PhD Unavailable [phone] Lincoln [place] MD Unavailable [phone] Dhaval Slater MD Unavailable Encounter Details Date Type Department Care Team (Late st Contact Info) Description 03/25/2021 Transcribe Orders [facility] [address] [address] [place] [address] [place] [address], [address] [place] [address] [email or web address] Social History Tobacco Use Types Packs/Day Years [...] high school, GED, job training, learning the Libyan language, technical skills, or developing parenting skills)? 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 Not on file Not on file Not on file documented as of this encounter Plan of Treatment Upcoming Encounters Date Type Department Care Team (Late st Contact Info) Description 02/19/2025 3:00 PM EST Office Visit [facility] [address] [place] [address] Ja Holley MD [address] [facility], [address] [place] [address] 04/30/2025 10:30 AM EDT Office Visit [facility] [address] [place] [address] Fredi Elaine DO 22 [place] [address] 05/06/2025 12:00 PM EDT Appointment Department of Radiation Oncology [address] [place] [address] Lincoln Burton, MABLE [address] [place] [address] [email or web address] 07/22/2025 9:40 AM EDT Office Visit [facility] [address] [place] [address] 3rd Floor, [address] [place] [address] Asif Araiza MD, MS 22 [facility], [address] [place] [address] Scheduled Procedures Name Priority Associated Diagnoses Date/Ti [...] documented as of this encounter Care Teams Textile Machinery Sales Representative Relationship Specialty Start Date End Date Ja Holley MD [address] [place] [address], [address] [place] [address] PCP - General Internal Medicine 07/23/20 Emile Blake MD [address] [place] [address] Gastroenterology 10/31/18 Frank Mak MD [address] [place] [address], [address] [place] [address] [email or web address] Physical Medicine and Rehabilitation 11/14/20 Alfonzo Perkins MD 45 [facility] [place] [address] Psychiatry 02/01/21 10/07/22 Jamari Ellison DO [address] [place] [address] [facility] [place] [address] Orthopedic Surgery 07/24/21 Fredi Unger MD [address] [place] [address] Ophthalmology 07/24/21 Elroy Calderon MD [address] [place] [address], [address] [place] [address] [email or web address] Urology 10/27/21 Ja Holley MD [address] [place] [address], [address] [place] [address] [email or web address] Insurance Assigned Provider 05/28/23 Bartolo Morgan MD [address] [place] [address] Psychiatry 10/08/22 Molly Spring RN [address] [place] [address] [email or web address] Legal Advisor 02/07/23 10/07/24 Criss Cosme [address] [place] [address] [email or web address] Community Health Worker 03/29/23 03/29/23 Maximino Dorado MD, PhD [address] [place] [address] [email or web address] Radiation Oncology 05/03/23 Maximino Dorado MD, PhD [address] [place] [address] [email or web address] Radiation Oncology 06/01/23 06/25/23 Lincoln [place] MD [address] [place] [address], 2nd [place] [address] [email or web address] Physical Medicine and Rehabilitation 06/26/23 Dhaval Slater MD [address] [place] [address] Neurosurgery 07/07/23 documented as of this encounter Additional Source Comments The information contained in this document represents components of the legal health record. It is not the complete legal health record.[facility]
--- OUTSIDE RECORDS SUMMARY | 2025-01-31 06:35 | XMS_ITS | Encounter Summary ---
Author Organization [facility] Address [address] [place] [address] Phone Care Team Providers Care Upholsterer Apprentice Name Role Phone Emile Blake MD Unavailable Ja Holley MD Primary Care Provider [phone] Frank Mak MD Unavailable [phone] Jamari Ellison DO Unavailable [phone] Fredi Unger MD Unavailable Elroy Calderon MD Unavailable [phone] Ja Holley MD Unavailable Bartolo Morgan MD Unavailable Maximino Dorado MD, PhD Unavailable [place] Thomson MD Unavailable Dhaval Slater MD Unavailable Reason for Visit * Reason Onset Date Comments Recall colonoscopy/ Add EGD? 12/13/2024 Encounter Details Date Type Department Care Team ([facility] st Contact Info) Description 12/13/2024 Telephone [facility] [address] [place], [place] [phone] Emile Blake MD [address] [id number] [email or web address] Recall colonoscopy/ Add EGD? 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 Pt states that he has been having issues with his throat with his ENT expressing concerns and wanting to know if an EGD could be added on to this procedure when it is scheduled. Pt has been scheduled [facility] in the past. documented in this encounter Plan of Treatment Upcoming Encounters Date Type Department Care Team (Late st Contact Info) Description 02/19/2025 3:00 PM EST Office Visit [facility] Medicine [address] [place] [address] Ja Holley MD [address] [place] [address], [address] [place] [address] 04/30/2025 10:30 AM EDT Office Visit [facility] [address] [place] [address] Fredi Elaine DO [address] [place] [address] 05/06/2025 12:00 PM EDT Appointment Department of Radiation Oncology [address] [place] [address] [place], MANUFACTURING ENGINEER PAINT [address] [place] [address] [place] [address] [email or web address] 07/22/2025 9:40 AM EDT Office Visit [facility] [address]rd Floor, [address] [place] [address] Asif Araiza MD, MS 22 [facility], [address] [place] [address] [email or web address] Scheduled Procedures Name Priority Associated Diagnoses Date/Ti me COLONOSCOPY Gastroesophageal reflux disease with esophagitis without hemorrhage ESOPHAGOGASTRODUODENOSCOPY Gastroesophageal reflux disease with esophagitis without hemorrhage documented as of this encounter Visit Diagnoses Not on filedocumented in this encounter Additional Health Concerns Infection Onset Date Last Indicated Resolved Time Resp-Risk 01/25/2025 01/25/2025 Assessment Noted Time PHQ-9 Depression Total Score: 025 2:55 PM EDT PHQ-2 Depression Total Score: 11/02/19 25 2:55 PM EDT documented as of this encounter Care Teams Upholsterer Apprentice Relationship Specialty Start Date End Date Ja Holley MD [address] [place] [address], [address] [place] [address] PCP - General Internal Medicine 07/23/20 Emile Blake MD [address] [place] [address] Gastroenterology 10/31/18 Frank Mak MD [address] [place] [address], [address] [place] [address] [email or web address] Physical Medicine and Rehabilitation 11/14/20 Jamari Ellison DO [address] [place] [address] [facility] [place] [place] [address] Orthopedic Surgery 07/24/21 Fredi Unger MD [address] [place] [address] [address] [place] [address] Ophthalmology 07/24/21 Elroy Calderon MD [address] [place] [address], [address] [place] [address] [email or web address] Urology 10/27/21 Ja Holley MD [address] [place] [address], [address] [place] [address] [email or web address] Insurance Assigned Provider 05/28/23 Bartolo Morgan MD [address] [place] [address] Psychiatry 10/08/22 Maximino Dorado MD, PhD [address] [place] [address] [email or web address] Radiation Oncology 05/03/23 [place] Thomson MD [address] [place] [address], 2nd [place] [address] Physical Medicine and Rehabilitation 06/26/23 Dhaval Slater MD [address] [place] [address] Neurosurgery 07/07/23 documented as of this encounter Additional Source Comments The information contained in this document represents components of the legal health record. It is not the complete legal health record.[facility]
--- OUTSIDE RECORDS SUMMARY | 2025-01-31 06:35 | XMS_ITS | Encounter Summary ---
Author Organization [facility] Address [address] [place] [address] Phone Care Team Providers Care Portrait Consultant Name Role Phone Ja Holley MD Primary Care Provider Encounter Details Date Type Department Care Team (Late st Contact Info) Description 03/16/2024 Documentation Only [facility], [address] [place] [address] Manuela Torres [address] [place] [address] Social History Tobacco Use Types [...] on filedocumented in this encounter Care Teams Portrait Consultant Relationship Specialty Start Date End Date Ja Holley MD [address] [place] [address], [address] [place] [address] PCP - General Internal Medicine 02/21/24 documented as of this encounter
--- OUTSIDE RECORDS SUMMARY | 2025-01-31 06:35 | XMS_ITS | Encounter Summary ---
Author Organization [facility] Address [address] [place] [address] Phone Care Team Providers Care Diamond Grinder Name Role Phone Emile Blake MD Unavailable Ja Holley MD Primary Care Provider Frank Mak MD Unavailable Alfonzo Perkins MD Unavailable Rosalia Vargas RN Unavailable [phone] Jamari Ellison DO Unavailable Fredi Unger MD Unavailable Elroy Calderon MD Unavailable [phone] Ja Holley MD Unavailable Bartolo Morgan MD Unavailable Molly Spring RN Unavailable [email or web address] Criss Cosme Unavailable [phone] Maximino Dorado MD, PhD Unavailable [phone] Maximino Dorado MD, PhD Unavailable [phone] [place] Thomson MD Unavailable Dhaval Slater MD Unavailable Encounter Details Date Type Department Care Team (Late st Contact Info) Description 02/04/2021 [facility] 101 [facility] [address] [address] Eunice Rajan [address] [place] [address] Social History Tobacco Use Types Packs/Day Years [...] high school, GED, job training, learning the Polish language, technical skills, or developing parenting skills)? 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 Not on file Not on file documented as of this encounter Plan of Treatment Upcoming Encounters Date Type Department Care Team (Late st Contact Info) Description 02/19/2025 3:00 PM EST Office Visit [facility] Medicine [address] [place] [address] [place] [address] Ja Holley MD [address] [place] [address], [address] [place] [address] 04/30/2025 10:30 AM EDT Office Visit [facility] [address] [place] [address] [place] [address] Fredi Elaine DO 22 [place] [address] 05/06/2025 12:00 PM EDT Appointment Department of Radiation Oncology [address] [place] [address] [place] Burton, MABLE [address] [place] [address] [email or web address] 07/22/2025 9:40 AM EDT Office Visit [facility] [address] [place] [address] 3rd Floor, [address] [place] [address] Asif Araiza MD, MS 22 [facility], [address] [place] [address] Scheduled Procedures Name Priority Associated Diagnoses Date/Ti de COLONOSCOPY Gastroesophageal reflux disease with esophagitis without [...] documented as of this encounter Care Teams Diamond Grinder Relationship Specialty Start Date End Date Ja Holley MD [address] [place] [address], [address] [place] [address] PCP - General Internal Medicine 07/23/20 Emile Blake MD [address] [place] [address] Gastroenterology 10/31/18 Frank Mak MD [address] [place] [address], [address] [place] [address] [email or web address] Physical Medicine and Rehabilitation 11/14/20 Alfonzo Perkins MD [address] [place] [address] Psychiatry 02/01/21 10/07/22 Rosalia Vargas, KATEY [address] [place] [address] PHC Operations Administrative Assistant 02/12/21 03/10/21 Jamari Ellison DO [address] [place] [address] [facility] [place] [address] Orthopedic Surgery 07/24/21 Fredi Unger MD [address] [place] [address] [place] [address] Ophthalmology 07/24/21 Elroy Calderon MD [address] [place] [address] [address] [place] [address] [email or web address] Urology 10/27/21 Ja Holley MD [address] [place] [address], [address] [place] [address] [email or web address] Insurance Assigned Provider 05/28/23 Bartolo Morgan MD [address] [place] [address] Psychiatry 10/08/22 Molly Spring RN [address] [place] [address] [email or web address] PHC Operations Administrative Assistant 02/07/23 10/07/24 Criss Cosme 10 [place] [address] [email or web address] PHC Community Health Worker 03/29/23 03/29/23 Maximino Dorado MD, PhD [address] [place] [address] [email or web address] Radiation Oncology 05/03/23 Maximino Dorado MD, PhD [address] [place] [address] [email or web address] Radiation Oncology 06/01/23 06/25/23 [place] Thomson MD [address] [place] [address], 2nd [place] [address] Physical Medicine and Rehabilitation 06/26/23 Dhaval Slater MD [address] [place] [address] [place] [address] Neurosurgery 07/07/23 documented as of this encounter Additional Source Comments The information contained in this document represents components of the legal health record. It is not the complete legal health record.[facility]
--- OUTSIDE RECORDS SUMMARY | 2025-01-31 06:35 | XMS_ITS | Encounter Summary ---
Author Organization [facility] Address [address] [place] [address] Phone Care Team Providers Care International Operations Manager Name Role Phone Kellee Gomez NP Primary Care Provider Leonel Alegria MD Primary Care Provider Emile Blake MD Unavailable Andrei Coon DO Primary Care Provider Lupis Copeland MD Primary Care Provider [phone] Gordon Moralez MD Primary Care Provider [phone] Ja Holley MD Primary Care Provider [phone] Frank Mak MD Unavailable Alfonzo Perkins MD Unavailable [phone] Rosalia Vargas RN Unavailable [phone] Jamari Ellison DO Unavailable Fredi Unger MD Unavailable Elroy Calderon MD Unavailable [phone] Ja Holley MD Unavailable [phone] Bartolo Morgan MD Unavailable [phone] Molly Spring RN Unavailable [email or web address] Criss Cosme Unavailable [phone] Maximino Dorado MD, PhD Unavailable [phone] Maximino Dorado MD, PhD Unavailable [phone] [place] Thomson MD Unavailable [phone] Dhaval Slater MD Unavailable Encounter Details Date Type Department Care Team (Late Contact Info) Description 05/19/2017 Ancillary Orders Virtual Department 30 [place] [address] Katty Love PA-C [address] [place] [address] Abdominal bloating; Nausea; Gastroesophageal reflux disease, esophagitis [...] Description 02/19/2025 3:00 PM EST Office Visit [address] [address] Ja Holley MD [address] [place] [address], [address] [place] [address] 04/30/2025 10:30 AM EDT Office Visit [facility] [address] [place] [address] Fredi Elaine DO [address] [place] [address] 05/06/2025 12:00 PM EDT Appointment Department of Radiation Oncology [address] [place] [address] [place] Burton, MABLE [address] [place], [place] [address] [place] [address] [email or web address] 07/22/2025 9:40 AM EDT Office Visit [facility] [address] [place] [address] 3rd Floor, [address] [place] [address] Asif Araiza MD, MS 22 [facility], [address] [place] [address] [email or web address] Scheduled Procedures Name Priority Associated Diagnoses Date/Ti [...] POS - [id number] Katty Love PA-C IMG MI ABDOMEN Final Result documented in this encounter [...] documented as of this encounter Care Teams International Operations Manager Relationship Specialty Start Date End Date Kellee Gomez [place] [address] [email or web address] PCP - General Family Medicine 01/19/17 05/19/17 [place] [address] [email or web address] PCP - General Internal Medicine 05/20/17 01/07/19 Andrei Coon DO [address] [place] [address] [email or web address] PCP - General Family Medicine 01/08/19 01/03/20 Lupis Copeland MD [address] [place] [address] [email or web address] PCP - General Family Medicine 01/04/20 06/09/20 Gordon Moralez MD [address] [place] [address] Saji [email or web address] PCP - General 06/10/20 07/22/20 Ja Holley MD [address] [place] [address], [address] [place] [address] [email or web address] PCP - General Internal Medicine 07/23/20 Emile Blake MD [address] [place] [address] [email or web address] Gastroenterology 10/31/18 Frank Mak MD [address] [place] [address], [address] [place] [address] [email or web address] Physical Medicine and Rehabilitation 11/14/20 Alfonzo Perkins MD [address] [place] [address] Psychiatry 02/01/21 10/07/22 Rosalia Vargas RN 30 [place] [address] [email or web address] PHCM Frame Gate Mortiser Operator 02/12/21 03/10/21 Jamari Ellison DO [address] [place] [address] Orthopedics & Sports Medicine, [facility] [place] [address] Orthopedic Surgery 07/24/21 Fredi Unger MD [address] [place] [address] Ophthalmology 07/24/21 Elroy Calderon MD [address] [place] [address], [address] [place] [address] [email or web address] Urology 10/27/21 Ja Holley MD [address] [place] [address], [address] [place] [address] [email or web address] Insurance Assigned Provider 05/28/23 Bartolo Morgan MD [address] [place] [address] Psychiatry 10/08/22 Molly Spring RN [address] [address] [email or web address] PHCM Frame Gate Mortiser Operator 02/07/23 10/07/24 Criss Cosme 10 [place] [address] [email or web address] [facility] Community Health Worker 03/29/23 03/29/23 Maximino Dorado MD, PhD [address] [place] [address] [email or web address] Radiation Oncology 05/03/23 Maximino Dorado MD, PhD [address] [place] [address] [email or web address] Radiation Oncology 06/01/23 06/25/23 [place] Thomson MD [address] [place] [address], [address] [place] [address] Physical Medicine and Rehabilitation 06/26/23 Dhaval Slater MD [address] [place] [address] [place] [address] Neurosurgery 07/07/23 documented as of this encounter Additional Source Comments The information contained in this document represents components of the legal health record. It is not the complete legal health record.[facility]
--- OUTSIDE RECORDS SUMMARY | 2025-01-31 06:35 | XMS_ITS | Encounter Summary ---
Author Organization [facility] Address [address] [place] [address] Phone Care Team Providers Care Climbing Guide Name Role Phone Emile Blake MD Unavailable Ja Holley MD Primary Care Provider Frank Mak MD Unavailable [phone] Alfonzo Perkins MD Unavailable [phone] Jamari Ellison DO Unavailable Fredi Unger MD Unavailable Elroy Calderon MD Unavailable [phone] Ja Holley MD Unavailable Bartolo Morgan MD Unavailable Molly Spring RN Unavailable [email or web address] Criss Cosme Unavailable Maximino Dorado MD, PhD Unavailable [phone] Maximino Dorado MD, PhD Unavailable [phone] [place] Thomson MD Unavailable [phone] Dhaval Slater MD Unavailable Encounter Details Date Type Department Care Team (Late st Contact Info) Description 08/21/2022 Procedure Pass [facility], Ct Scan - [address] [phone] Social History Tobacco Use Types Packs/Day Years [...] 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 Not on file Not on file Not on file documented as of this encounter Functional Status * Calculated C-SSRS Risk Score (Lifetime/Recent) Answer Date of Assessment Author No Risk Indicated 08/21/2022 10:06 AM EDT Laura Underwood RN * [place] Suicide Severity Rating Scale (Screener/Recent Self-Report) Question [...] Description 02/19/2025 3:00 PM EST Office Visit [facility] Medicine [address] [place] [address] [place] [address] Ja Holley MD [address] [place] [address], [address] [place] [address] 04/30/2025 10:30 AM EDT Office Visit [facility] [address] [place] [address] [place] [address] Fredi Elaine DO [address] [place] [address] 05/06/2025 12:00 PM EDT Appointment Department of Radiation Oncology [address] [place] [address] [place] Burton NP [address] [place] [address] [email or web address] 07/22/2025 9:40 AM EDT Office Visit [facility] [address]rd Floor, [address] [place] [address] Asif Araiza MD, MS 22 [facility], [address] [place] [address] [email or web address] Scheduled Procedures Name Priority Associated Diagnoses Date/Ti mt COLONOSCOPY Gastroesophageal reflux disease with esophagitis without [...] documented as of this encounter Care Teams Climbing Guide Relationship Specialty Start Date End Date Ja Holley MD 22 [facility], [address] [place] [address] PCP - General Internal Medicine 07/23/20 Emile Blake MD [address] [place] [address] Gastroenterology 10/31/18 Frank Mak MD [address] [place] [address], [address] [place] [address] [email or web address] Physical Medicine and Rehabilitation 11/14/20 Alfonzo Perkins MD [address] [place] [address] Psychiatry 02/01/21 10/07/22 Jamari Ellison DO [address] [place] [address] [facility] [place] [address] [email or web address] Orthopedic Surgery 07/24/21 Fredi Unger MD [address] [place] [address] 2 [place] [address] Ophthalmology 07/24/21 Elroy Calderon MD [address] [place] [address], [address] [place] [address] [email or web address] Urology 10/27/21 Ja Holley MD [address] [place] [address], [address] [place] [address] [email or web address] Insurance Assigned Provider 05/28/23 Bartolo Morgan MD [address] [place] [address] Psychiatry 10/08/22 Molly Spring, KATEY [address] [place] [address] [email or web address] PHCM Delivery Driver Assistant 02/07/23 10/07/24 Criss Cosme 10 [place] [address] [email or web address] PHC Community Health Worker 03/29/23 03/29/23 Maximino Dorado MD, PhD [address] [place] [address] [email or web address] Radiation Oncology 05/03/23 Maximino Dorado MD, PhD [address] [place] [address] [email or web address] Radiation Oncology 06/01/23 06/25/23 [place] Thomson MD [address] [place] [address], 2nd [place] [address] [email or web address] Physical Medicine and Rehabilitation 06/26/23 Dhaval Slater MD [address] [place] [address] [place] [address] Neurosurgery 07/07/23 documented as of this encounter Additional Source Comments The information contained in this document represents components of the legal health record. It is not the complete legal health record.[facility]
--- OUTSIDE RECORDS SUMMARY | 2025-01-31 06:35 | XMS_ITS | Encounter Summary ---
Author Organization [facility] Address [address] [place] [address] Phone Care Team Providers Care Technical Writer And Editor Name Role Phone Emile Blake MD Unavailable [phone] Ja Holley MD Primary Care Provider + [phone] Frank Mak MD Unavailable [phone] Jamari Ellison DO Unavailable [phone] Fredi Unger MD Unavailable [phone] Elroy Calderon MD Unavailable [phone] Ja Holley MD Unavailable [phone] Bartolo Morgan MD Unavailable [phone] Molly Spring RN Unavailable [email or web address] Maximino Dorado MD, PhD Unavailable [phone] Maximino Dorado MD, PhD Unavailable [phone] Lincoln Thomson MD Unavailable [phone] Dhaval Slater MD Unavailable Encounter Details Date Type Department Care Team (Late st Contact Info) Description 06/13/2023 Procedure Pass [address] [place] [address] Social History Tobacco Use Types Packs/Day Years [...] 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 [...] Description 02/19/2025 3:00 PM EST Office Visit [facility] [address] [place] [address] Ja Holley MD [address] [place] [address], [address] [place] [address] 04/30/2025 10:30 AM EDT Office Visit [facility] [address] [place] [address] [place] [address] Fredi Elaine DO [address] [place] [address] 05/06/2025 12:00 PM EDT Appointment Department of Radiation Oncology [address] [place] [address] Lincoln Burton NP [address] [place] [address] [email or web address] 07/22/2025 9:40 AM EDT Office Visit [facility] [address] [place] [address] 3rd Floor, [address] [place] [address] Asif Araiza MD, MS 22 [facility], [address] [address] Scheduled Procedures Name Priority Associated Diagnoses Date/Ti [...] documented as of this encounter Care Teams Technical Writer And Editor Relationship Specialty Start Date End Date Ja Holley MD [address] [place] [address], [address] [place] [address] PCP - General Internal Medicine 07/23/20 Emile Blake MD [address] [place] [address] Gastroenterology 10/31/18 Frank Mak MD [address] [place] [address], [address] [place] [address] [email or web address] Physical Medicine and Rehabilitation 11/14/20 Jamari Ellison DO [address] [place] [address] Orthopedics & Sports Medicine, [place] [address] Orthopedic Surgery 07/24/21 Fredi Unger MD [address] [place] [address] Ophthalmology 07/24/21 Elroy Calderon MD [address] [place] [address], [address] [place] [address] Urology 10/27/21 Ja Holley MD [address] [place] [address], [address] [place] [address] [email or web address] Insurance Assigned Provider 05/28/23 Bartolo Morgan MD [address] [place] [address] Psychiatry 10/08/22 Molly Spring RN [address] [place] [address] [email or web address] Vice President Of Business Development 02/07/23 10/07/24 Maximino Dorado MD, PhD [address] [place] [address] [email or web address] Radiation Oncology 05/03/23 Maximino Dorado MD, PhD [address] [place] [address] [email or web address] Radiation Oncology 06/01/23 06/25/23 Lincoln Thomson MD [address] [place] [address], 2nd [place] [address] [email or web address] Physical Medicine and Rehabilitation 06/26/23 Dhaval Slater MD [address] [place] [address] Dr CALIX [address] [place] [address] Neurosurgery 07/07/23 documented as of this encounter Additional Source Comments The information contained in this document represents components of the legal health record. It is not the complete legal health record.[facility]
--- OUTSIDE RECORDS SUMMARY | 2025-01-31 06:35 | XMS_ITS | Encounter Summary ---
Author Organization [facility] Address [address] [place] [address] Phone Care Team Providers Care Multicultural Manager Name Role Phone Emile Blake MD Unavailable [phone] Ja Holley MD Primary Care Provider Frank Mak MD Unavailable [phone] Alfonzo Perkins MD Unavailable Rosalia Vargas RN Unavailable [phone] Jamari Ellison DO Unavailable Fredi Unger MD Unavailable Elroy Calderon MD Unavailable [phone] Ja Holley MD Unavailable Bartolo Morgan MD Unavailable Molly Spring RN Unavailable [email or web address] Criss Cosme Unavailable [phone] Maximino Dorado MD, PhD Unavailable [phone] Maximino Dorado MD, PhD Unavailable [phone] Lincoln Thomson MD Unavailable [phone] Dhaval Slater MD Unavailable Encounter Details Date Type Department Care Team (Late st Contact Info) Description 02/24/2021 Telephone [facility] [address] [place] [address] Ja Holley MD 22 [facility], [address] [place] [address] Social History Tobacco Use Types Packs/Day Years [...] high school, GED, job training, learning the Sw[place] language, technical skills, or developing parenting skills)? 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 Dr Caledron wants EMG but patient does not want [...] 02/19/2025 3:00 PM EST Office Visit See [facility] [address] [place] [address] [place] [address] Ja Holley MD [address] [place] [address], [address] [place] [address] 04/30/2025 10:30 AM EDT Office Visit [facility] [address] [place] [address] [place] [address] Fredi Elaine DO [address] [place] [address] 05/06/2025 12:00 PM EDT Appointment Department of Radiation Oncology [address] [place] [address] Lincoln Burton, MABLE [address] [place] [address] [email or web address] 07/22/2025 9:40 AM EDT Office Visit [facility] [address] [place] [address] 3rd Floor, [address] [place] [address] Asif Araiza MD, MS 22 [facility], [address] [place] [address] Scheduled Procedures Name Priority Associated Diagnoses Date/Ti [...] documented as of this encounter Care Teams Multicultural Manager Relationship Specialty Start Date End Date Ja Holley MD [address] [place] [address], [address] [place] [address] PCP - General Internal Medicine 07/23/20 Emile Blake MD [address] [place] [address] Gastroenterology 10/31/18 Frank Mak MD [address] [place] [address], [address] [place] [address] [email or web address] Physical Medicine and Rehabilitation 11/14/20 Alfonzo Perkins MD [address] [place] [address] Psychiatry 02/01/21 10/07/22 Rosalia Vargas RN [address] [place] [address] [email or web address] [facility] Teletype Telegrapher 02/12/21 03/10/21 Jamari Ellison DO [address] [place] [address] Orthopedics & Sports Medicine, [place] [address] Orthopedic Surgery 07/24/21 Fredi Unger MD [address] [place] [address] Ophthalmology 07/24/21 Elroy Calderon MD [address] [place] [address], [address] [place] [address] Urology 10/27/21 Ja Holley MD [address] [place] [address], [address] [place] [address] [email or web address] Insurance Assigned Provider 05/28/23 Bartolo Morgan MD [address] [place] [address] Psychiatry 10/08/22 Molly Spring RN [address] [place] [address] [email or web address] Teletype Telegrapher 02/07/23 10/07/24 Criss Cosme [address] [place] [address] [email or web address] PHC Community Health Worker 03/29/23 03/29/23 Maximino Dorado MD, PhD [address] [place] [address] [email or web address] Radiation Oncology 05/03/23 Maxmiino Dorado MD, PhD [address] [place] [address] [email or web address] Radiation Oncology 06/01/23 06/25/23 Lincoln Thomson MD [address] [place] [address], 2nd [place] [address] Physical Medicine and Rehabilitation 06/26/23 Dhaval Slater MD [address] [place] [address] [place] [address] Neurosurgery 07/07/23 documented as of this encounter Additional Source Comments The information contained in this document represents components of the legal health record. It is not the complete legal health record.[facility]
--- OUTSIDE RECORDS SUMMARY | 2025-01-31 06:35 | XMS_ITS | Encounter Summary ---
Author Organization [facility] Address [address] [place] [address] [place] [address] Phone Care Team Providers Care Seat Joiner Name Role Phone Emile Blake MD Unavailable [phone] Ja Holley MD Primary Care Provider + [phone] Frank Mak MD Unavailable [phone] Jamari Ellison DO Unavailable [phone] Fredi Unger MD Unavailable [phone] Elroy Calderon MD Unavailable [phone] Ja Holley MD Unavailable [phone] Bartolo Morgan MD Unavailable [phone] Molly Spring RN Unavailable [email or web address] Criss Cosme Unavailable [phone] Maximino Dorado MD, PhD Unavailable [phone] Maximino Dorado MD, PhD Unavailable [phone] Lincoln Thomson MD Unavailable Dhaval Slater MD Unavailable Encounter Details Date Type Department Care Team (Late st Contact Info) Description 12/23/2022 Transcribe Orders [facility] Specimen Processing [address] [place], [place] [id number] Ja Holley MD 22 [facility], [address] [place], [place] [id number] [email or web address] Social History Tobacco Use Types Packs/Day Years [...] Description 02/19/2025 3:00 PM EST Office Visit [facility] Medicine [address] [place] [address] [place] [address] Ja Holley MD [address] [place] [address], [address] [place] [address] 04/30/2025 10:30 AM EDT Office Visit [facility] [address] [place] [address] [place] [address] Fredi Elaine DO [address] [place] [address] 05/06/2025 12:00 PM EDT Appointment Department of Radiation Oncology [address] [place] [address] Lincoln Burton, MABLE [address] [place] [address] [email or web address] 07/22/2025 9:40 AM EDT Office Visit [facility] [address] [place] [address] 3rd Floor, [address] [place] [address] Asif Araiza MD, MS 22 [facility], [address] [address] Scheduled Procedures Name Priority Associated Diagnoses Date/Ti ut COLONOSCOPY Gastroesophageal reflux disease with esophagitis without [...] documented as of this encounter Care Teams Seat Joiner Relationship Specialty Start Date End Date Ja Holley MD [address] [place] [address], [address] [place] [address] PCP - General Internal Medicine 07/23/20 Emile Blake MD [address] [place] [address] Gastroenterology 10/31/18 Frank Mak MD [address] [place] [address], [address] [place] [address] [email or web address] Physical Medicine and Rehabilitation 11/14/20 Jamari Ellison DO [address] [place] [address] Orthopedics & Sports Medicine, [place] [address] Orthopedic Surgery 07/24/21 Fredi Unger MD [address] [place] [address] Ophthalmology 07/24/21 Elroy Calderon MD [address] [place] [address], [address] [address] Urology 10/27/21 Ja Holley MD [address] [place] [address], [address] [place] [address] [email or web address] Insurance Assigned Provider 05/28/23 Bartolo Morgan MD [address] [place] [address] Psychiatry 10/08/22 Molly Spring RN [address] [place] [address] [email or web address] PHC Hand Meat Salter 02/07/23 10/07/24 Criss Cosme [address] [place] [address] [email or web address] Community Health Worker 03/29/23 03/29/23 Maximino Dorado MD, PhD [address] [place] [address] [email or web address] Radiation Oncology 05/03/23 Maximino Dorado MD, PhD [address] [place] [address] [email or web address] Radiation Oncology 06/01/23 06/25/23 Lincoln Thomson MD [address] [place] [address], 2nd [place] [address] [email or web address] Physical Medicine and Rehabilitation 06/26/23 Dhaval Slater MD [address] [place] [address] Dr CALIX [address] [place] [address] Neurosurgery 07/07/23 documented as of this encounter Additional Source Comments The information contained in this document represents components of the legal health record. It is not the complete legal health record.[facility]
--- OUTSIDE RECORDS SUMMARY | 2025-01-31 06:35 | XMS_ITS | Encounter Summary ---
Author Organization [facility] Address [address] [place] [address] Phone Care Team Providers Care Assistant Store Director Name Role Phone Ja Holley MD Primary Care Provider Encounter Details Date Type Department Care Team ([facility] st Contact Info) Description 02/21/2024 Documentation Only [facility], [address] [place] [address] [place], [place] [address] [place] [address] Social History Tobacco Use Types [...] on filedocumented in this encounter Care Teams Assistant Store Director Relationship Specialty Start Date End Date Ja Holley MD [address] [place] [address], [address] [place] [address] PCP - General Internal Medicine 02/21/24 documented as of this encounter
--- OUTSIDE RECORDS SUMMARY | 2025-01-31 06:35 | XMS_ITS | Encounter Summary ---
Author Organization [facility] Address [address] [facility] [address] [place] [address] Phone Care Team Providers Care Pollution Control Chemist Name Role Phone Emile Blake MD Unavailable Ja Holley MD Primary Care Provider + [phone] Frank Mak MD Unavailable Jamari Ellison DO Unavailable [phone] Fredi Unger MD Unavailable [phone] Elroy Calderon MD Unavailable [phone] Ja Holley MD Unavailable [phone] Bartolo Morgan MD Unavailable [phone] Molly Spring RN Unavailable [email or web address] Maximino Dorado MD, PhD Unavailable [phone] Lincoln Thomson MD Unavailable Dhaval Slater MD Unavailable Reason for Referral * Outpatient Procedure - Closed Specialty Diagnoses / Procedures Referred By Glory pablo Referred To Contact Radiology Diagnoses Hypertension, unspecified type Procedures US Renal Artery/ Veins Duplex Nathan Bacon MD [address] [facility] [address] [place] [address] Phone: tel: fax: mailto:[email or web address] Referral ID Status Reason Start Date Expiration Date Visits Re quested Visits Authorized [id number] Closed 03/09/2024 03/09/2025 1 1 Encounter Details Date Type Department Care Team (Latest Contact Info) Description 03/09/2024 Transcribe Orders Virtual Department [address] [place] [address] Nathan Bacon MD [address] [address] [email or web address] Hypertension, unspecified type (Primary Dx) Social History [...] 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 file Not on file Not on file documented as of this encounter Plan of Treatment Upcoming Encounters Date Type Department Care Team (Late st Contact Info) Description 02/19/2025 3:00 PM EST Office Visit [facility] [address] [place] [address] [place] [address] Ja Holley MD [address] [place] [address], [address] [place] [address] 04/30/2025 10:30 AM EDT Office Visit [facility] [address] [place] [address] [place] [address] Fredi Elaine DO [address] [place] [address] 05/06/2025 12:00 PM EDT Appointment Department of Radiation Oncology [address] [place] [address] Lincoln Burton NP [address] [place] [address] [email or web address] 07/22/2025 9:40 AM EDT Office Visit [facility] [address] [facility] 3rd Floor, [address] [place] [address] Asif Araiza MD, MS 22 [facility], [address] [place] [address] [email or web address] Scheduled Procedures Name Priority Associated Diagnoses Date/Ti [...] documented as of this encounter Care Teams Pollution Control Chemist Relationship Specialty Start Date End Date Ja Holley MD [address] [place] [address], [address] [place] [address] PCP - General Internal Medicine 07/23/20 Emile Blake MD [address] [place] [address] Gastroenterology 10/31/18 Frank Mak MD [address] [place] [address], [address] [place] [address] [email or web address] Physical Medicine and Rehabilitation 11/14/20 Jamari Ellison DO [address] [place] [address] Orthopedics & Sports Medicine, [place] [address] Orthopedic Surgery 07/24/21 Fredi Unger MD [address] [place] [address] Ophthalmology 07/24/21 Elroy Calderon MD [address] [place] [address], [address] [place] [address] Urology 10/27/21 Ja Holley MD [address] [place] [address], [address] [place] [address] [email or web address] Insurance Assigned Provider 05/28/23 Bartolo Morgan MD [address] [place] [address] Psychiatry 10/08/22 Molly Spring RN [address] [place] [address] [email or web address] Intern 02/07/23 10/07/24 Maximino Dorado MD, PhD [address] [place] [address] [email or web address] Radiation Oncology 05/03/23 Lincoln Thomson MD 22 [facility], 2nd [place] [address] [email or web address] Physical Medicine and Rehabilitation 06/26/23 Dhaval Slater MD [address] [place] [address] Dr CALIX [address] [place] [address] Neurosurgery 07/07/23 documented as of this encounter Additional Source Comments The information contained in this document represents components of the legal health record. It is not the complete legal health record.[facility]
--- OUTSIDE RECORDS SUMMARY | 2025-01-31 06:35 | XMS_ITS | Encounter Summary ---
Author Organization [facility] Address [address] [place] [address] Phone Care Team Providers Care Office Helper Clerical Name Role Phone Emile Blake MD Unavailable [phone] Ja Holley MD Primary Care Provider + [phone] Frank Mak MD Unavailable [phone] Jamari Ellison DO Unavailable [phone] Fredi Unger MD Unavailable [phone] Elroy Calderon MD Unavailable [phone] Ja Holley MD Unavailable [phone] Bartolo [place] MD Unavailable [phone] Molly Spring RN Unavailable [email or web address] Maximino Dorado MD, PhD Unavailable +[phone] [place] Thomson MD Unavailable [phone] Dhaval Slater MD Unavailable Reason for Referral * MRI/CAT Scan - Closed Specialty Diagnoses / Procedures Referred By Glory pablo Referred To Contact Radiology Diagnoses Liver nodule Adrenal nodule Procedures MRI Abdomen Dorita Mcelroy PA 10 [place] [address] Phone: tel: fax: Referral ID Status Reason Start Date Expiration Date Visits Re quested Visits Authorized [id number] Closed 05/29/2024 05/29/2025 1 1 Encounter Details Date Type Department Care Team (Latest Contact Info) Description 05/29/2024 Transcribe Orders Virtual Department 30 [place] [address] Dorita Mcelroy PA 10 [place] [address] Mass of adrenal gland (Primary Dx); Liver [...] 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 Not on file Not on file Not on file documented as of this encounter Plan of Treatment Upcoming Encounters Date Type Department Care Team (Late st Contact Info) Description 02/19/2025 3:00 PM EST Office Visit [facility] Medicine [address] [place] [address] [place] [address] Ja Holley MD [address] [place] [address], [address] [place] [address] 04/30/2025 10:30 AM EDT Office Visit [facility] [address] [place] [address] [place] [address] Fredi Elaine DO [address] [place] [address] 05/06/2025 12:00 PM EDT Appointment Department of Radiation Oncology [address] [place] [address] [place] Burton, MABLE [address] [place], [place] [address] [place] [address] [email or web address] 07/22/2025 9:40 AM EDT Office Visit [facility] [address] [place] [address] 3rd Floor, [address] [place] [address] Asif Araiza MD, MS 22 [facility], [address] [place] [address] [email or web address] Scheduled Procedures Name Priority Associated Diagnoses Date/Ti la COLONOSCOPY Gastroesophageal reflux disease with esophagitis without hemorrhage ESOPHAGOGASTRODUODENOSCOPY Gastroesophageal reflux disease with esophagitis without hemorrhage documented as of this encounter Results * MRI ABDOMEN (LIVER) WITH AND WITHOUT CONTRAST (06/19/2024 10:09 AM EDT) MGB IMG PACK WORKER COMMENT Growing left adrenal nodule without specific benign features. Endocrine surgery consultation advised. Numerous pancreatic cystic lesions. Subspecialty follow-up and 12 month follow-up advised. PENDING SALE TO [facility] Anatomical Region Laterality Modality Abdomen Magnetic Resonan [...] initiated on 06/22/2024 10:20 AM, Message ID [id number]. Narrative 06/22/2024 10:20 AM EDT MRI ABDOMEN (LIVER) WITH AND WITHOUT CONTRAST Referring clinician's provided indication for this examination in [facility]: Outside Radiology Order; liver and adrenal [...] clinician's provided indication for this examination in [facility]:Outside Radiology Order; liver and adrenal gland nodule [...] was initiated on 06/22/2024 10:20 AM,Message ID [id number]. us Dorita SALES IMG MR ABDOMEN Final [...] documented as of this encounter Care Teams Office Helper Clerical Relationship Specialty Start Date End Date Ja Holley MD [address] [place] [address], [address] [place] [address] PCP - General Internal Medicine 07/23/20 Emile Blake MD [address] [place] [address] Gastroenterology 10/31/18 Frank Mak MD [address] [place] [address], [address] [place] [address] [email or web address] Physical Medicine and Rehabilitation 11/14/20 Jamari Ellison DO [address] [place] [address] Orthopedics & Sports Medicine, [place] [address] Orthopedic Surgery 07/24/21 Fredi Unger MD [address] [place] [address] Ophthalmology 07/24/21 Elroy Calderon MD [address] [place] [address], [address] [place] [address] Urology 10/27/21 Ja Holley MD [address] [place] [address], [address] [place] [address] Insurance Assigned Provider 05/28/23 Bartolo [place] MD [address] [place] [address] Psychiatry 10/08/22 Molly Spring RN [address] [place] [address] [email or web address] Wash House Supervisor 02/07/23 10/07/24 Maximino Dorado MD, PhD [address] [address] [email or web address] Radiation Oncology 05/03/23 [place] Thomson MD [address] [place] [address], [address] [place] [address] [email or web address] Physical Medicine and Rehabilitation 06/26/23 Dhaval Slater MD [address] [place] [address] Dr CALIX [address] [place] [address] Neurosurgery 07/07/23 documented as of this encounter Additional Source Comments The information contained in this document represents components of the legal health record. It is not the complete legal health record.[facility]
--- OUTSIDE RECORDS SUMMARY | 2025-01-31 06:35 | XMS_ITS | Encounter Summary ---
Author Organization [facility] Address [address] [place] [address] [place] [address] Phone Care Team Providers Care Microbiology Lab Analyst Name Role Phone Emile Blake MD Unavailable [phone] Ja Holley MD Primary Care Provider Frank Mak MD Unavailable Jamari Ellison DO Unavailable [phone] Fredi Unger MD Unavailable [phone] Elroy Calderon MD Unavailable [phone] Ja Holley MD Unavailable [phone] Bartolo [place] MD Unavailable Maximino Dorado MD, PhD Unavailable [phone] [place] Thomson MD Unavailable [phone] Dhaval Slater MD Unavailable Encounter Details Date Type Department Care Team (Late st Contact Info) Description 01/11/2025 Procedure Pass [facility] 30 [place] [address] Social History Tobacco Use Types Packs/Day Years [...] 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 Not on file Not on file Not on file documented as of this encounter Plan of Treatment Upcoming Encounters Date Type Department Care Team (Late st Contact Info) Description 02/19/2025 3:00 PM EST Office Visit [facility] Medicine [address] [place] [address] [place] [address] Ja Holley MD 22 [facility], [address] [place] [address] 04/30/2025 10:30 AM EDT Office Visit [facility] [address] [place] [address] [place] [address] Fredi Elaine DO [address] [place] [address] 05/06/2025 12:00 PM EDT Appointment Department of Radiation Oncology [address] [place] [address] [place] Burton, MABLE [address] [place] [address] [email or web address] 07/22/2025 9:40 AM EDT Office Visit [facility] [address] [place] [address] 3rd Floor, [address] [place] [address] Asif Araiza MD, MS 22 [facility], [address] [place] [address] Scheduled Procedures Name Priority Associated Diagnoses Date/Ti [...] documented as of this encounter Care Teams Microbiology Lab Analyst Relationship Specialty Start Date End Date Ja Holley MD [address] [place] [address], [address] [place] [address] PCP - General Internal Medicine 07/23/20 Emile Blake MD [address] [place] [address] Gastroenterology 10/31/18 Frank Mak MD [address] [place] [address], [address] [place] [address] [email or web address] Physical Medicine and Rehabilitation 11/14/20 Jamari Ellison DO [address] [place] [address] Orthopedics & Sports Medicine, [place] [address] Orthopedic Surgery 07/24/21 Fredi Unger MD [address] [place] [address] Ophthalmology 07/24/21 Elroy Calderon MD [address] [place] [address], [address] [place] [address] Urology 10/27/21 Ja Holley MD [address] [place] [address], [address] [place] [address] [email or web address] Insurance Assigned Provider 05/28/23 Bartolo [place] MD [address] [place] [address] Psychiatry 10/08/22 Maximino Dorado MD, PhD [address] [place] [address] [email or web address] Radiation Oncology 05/03/23 [place] Thomson MD [address] [place] [address], 2nd [place] [address] [email or web address] Physical Medicine and Rehabilitation 06/26/23 Dhaval Slater MD [address] [place] [address] Dr CALIX [address] [place] [address] Neurosurgery 07/07/23 documented as of this encounter Additional Source Comments The information contained in this document represents components of the legal health record. It is not the complete legal health record.[facility]
--- OUTSIDE RECORDS SUMMARY | 2025-01-31 06:35 | XMS_ITS | Encounter Summary ---
Author Organization [facility] Address [address] [place] [address] Phone Care Team Providers Care Black Powder Glazing Operator Name Role Phone Emile Blake MD Unavailable [phone] Ja Holley MD Primary Care Provider Frank Mak MD Unavailable Alfonzo Perkins MD Unavailable Jamari Ellison DO Unavailable Fredi Unger MD Unavailable Elroy Calderon MD Unavailable [phone] Ja Holley MD Unavailable [phone] Bartolo [place] MD Unavailable Molly Spring RN Unavailable [email or web address] Criss Cosme Unavailable [phone] Maximino Dorado MD, PhD Unavailable [phone] Maximino Dorado MD, PhD Unavailable [phone] [place] Thomson MD Unavailable [phone] Dhaval Slater MD Unavailable Encounter Details Date Type Department Care Team (Late st Contact Info) Description 07/28/2021 Procedure Pass [facility], [address] [place] [address] Social History Tobacco Use Types Packs/Day Years [...] Description 02/19/2025 3:00 PM EST Office Visit [facility] Medicine [address] [place] [address] Ja Holley MD 22 [facility], [address] [place] [address] 04/30/2025 10:30 AM EDT Office Visit [facility] [address] [place] [address] Fredi Elaine DO 22 [place] [address] 05/06/2025 12:00 PM EDT Appointment Department of Radiation Oncology [address] [place] [address] [place] Burton NP [address] [place] [address] [email or web address] 07/22/2025 9:40 AM EDT Office Visit [facility] [address] [place] [address] 3rd Floor, [address] [place] [address] Asif Araiza MD, MS 22 [facility], [address] [place] [address] Scheduled Procedures Name Priority Associated Diagnoses Date/Ti ms COLONOSCOPY Gastroesophageal reflux disease with esophagitis without [...] documented as of this encounter Care Teams Black Powder Glazing Operator Relationship Specialty Start Date End Date Ja Holley MD [address] [place] [address], [address] [place] [address] PCP - General Internal Medicine 07/23/20 Emile Blake MD [address] [place] [address] Gastroenterology 10/31/18 Frank Mak MD [address] [place] [address], [address] [place] [address] [email or web address] Physical Medicine and Rehabilitation 11/14/20 Alfonzo Perkins MD [address] [place] [address] Psychiatry 02/01/21 10/07/22 Jamari Ellison DO [address] [place] [address] Orthopedics & Sports Medicine, [place] [address] Orthopedic Surgery 07/24/21 Fredi Unger MD [address] [place] [address] Ophthalmology 07/24/21 Elroy Calderon MD [address] [place] [address] Urology 10/27/21 Ja Holley MD [address] [place] [address], [address] [place] [address] [email or web address] Insurance Assigned Provider 05/28/23 Bartolo [place] MD [address] [place] [address] Psychiatry 10/08/22 Molly Spring RN [address] [address] [email or web address] PHC Lumber Sorter 02/07/23 10/07/24 Criss Cosme [address] [place] [address] [email or web address] PHC Community Health Worker 03/29/23 03/29/23 Maximino Dorado MD, PhD [address] [place] [address] [email or web address] Radiation Oncology 05/03/23 Maximino Dorado MD, PhD [address] [place] [address] [email or web address] Radiation Oncology 06/01/23 06/25/23 [place] Thomson MD [facility], 2nd [place] [address] [email or web address] Physical Medicine and Rehabilitation 06/26/23 Dhaval Slater MD [address] [place] [address] Dr CALIX [address] [place] [address] Neurosurgery 07/07/23 documented as of this encounter Additional Source Comments The information contained in this document represents components of the legal health record. It is not the complete legal health record.[facility]
--- OUTSIDE RECORDS SUMMARY | 2025-01-31 06:35 | XMS_ITS | Encounter Summary ---
Author Organization [facility] Address [address] [place] [address] Phone Care Team Providers Care Tents Assembler Name Role Phone Emile Blake MD Unavailable [phone] Lupis Copeland MD Primary Care Provider Gordon Moralez MD Primary Care Provider [phone] Ja Holley MD Primary Care Provider [phone] Frank Mak MD Unavailable Alfonzo Perkins MD Unavailable Rosalia Vargas RN Unavailable [phone] Jamari Ellison DO Unavailable [phone] Fredi Unger MD Unavailable Elroy Calderon MD Unavailable [phone] Ja Holley MD Unavailable [phone] Bartolo [place] MD Unavailable [phone] Molly Spring RN Unavailable [email or web address] Criss Cosme Unavailable [phone] Maximino Dorado MD, PhD Unavailable [phone] Maximino Dorado MD, PhD Unavailable [phone] [place] Thomson MD Unavailable [phone] Dhaval Slater MD Unavailable Encounter Details Date Type Department Care Team (Late st Contact Info) Description 05/27/2020 Ancillary Orders Virtual Department [address] [place] [address] Ewa Reza PA 3400 [facility] [address] [place] [address] Acquired cyst of kidney Social History Tobacco [...] Description 02/19/2025 3:00 PM EST Office Visit [facility] Medicine [address] [place] [address] [place] [address] Ja Holley MD 22 [facility], [address] [place] [address] 04/30/2025 10:30 AM EDT Office Visit [facility] [address] [place] [address] [place] [address] Fredi Elaine DO 22 [place] [address] 05/06/2025 12:00 PM EDT Appointment Department of Radiation Oncology [address] [place] [address] [place] Burton NP [address] [place] [address] [email or web address] 07/22/2025 9:40 AM EDT Office Visit [facility] 22 [facility] 3rd Floor, [address] [place] [address] Asif Araiza MD, MS 22 [facility], [address] [place] [address] .[email or web address] Scheduled Procedures Name Priority Associated Diagnoses Date/Ti [...] cysts asabove. No acute findings. Ewa SALES [facility] RE[facility] Final Result documented in this [...] documented as of this encounter Care Teams Tents Assembler Relationship Specialty Start Date End Date Lupis Copeland MD [address], [place] [address] [email or web address] PCP - General Family Medicine 01/04/20 06/09/20 Gordon Moralez MD [address] [address] [email or web address] PCP - General 06/10/20 07/22/20 Ja [place] MD [address] [place] [address], [address] [place] [address] PCP - General Internal Medicine 07/23/20 Emile [place] MD [address] [place] [address] Gastroenterology 10/31/18 Frank Mak MD [address] [place] [address], [address] [place] [address] [email or web address] Physical Medicine and Rehabilitation 11/14/20 Alfonzo Perkins MD [address] [place] [address] Psychiatry 02/01/21 10/07/22 Rosalia Vargas, KATEY [address] [place] [address] [email or web address] [facility] Shingle Inspector 02/12/21 03/10/21 Jamari Ellison DO [address] [place] [address] Orthopedics & Sports Medicine, [place] [address] Orthopedic Surgery 07/24/21 Fredi Unger MD [address] [place] [address] Ophthalmology 07/24/21 Elroy Calderon MD [address] [place] [address], [address] [address] Urology 10/27/21 Ja Hol[place] MD [address] [place] [address], [address] [place] [address] [email or web address] Insurance Assigned Provider 05/28/23 Bartolo [place] MD [address] [place] [address] Psychiatry 10/08/22 Molly Spring RN [address] [place] [address] [email or web address] [email or web address] Inspector 02/07/23 10/07/24 Criss Cosme [address] [place] [address] [email or web address] Community Health Worker 03/29/23 03/29/23 Maximino Dorado MD, PhD [address] [place] [address] [email or web address] Radiation Oncology 05/03/23 Maximino Dorado MD, PhD [address] [place] [address] [email or web address] Radiation Oncology 06/01/23 06/25/23 [place] Thomson MD [address] [place] [address], [address] [place] [address] [email or web address] Physical Medicine and Rehabilitation 06/26/23 Dhaval Slater MD [address] [place] [address] Dr CALIX [address] [place] [address] Neurosurgery 07/07/23 documented as of this encounter Additional Source Comments The information contained in this document represents components of the legal health record. It is not the complete legal health record.[facility]
--- OUTSIDE RECORDS SUMMARY | 2025-01-31 06:35 | XMS_ITS | Encounter Summary ---
Author Organization [facility] Address [address] [place] [address] Phone Care Team Providers Care Painter Foreman Name Role Phone Emile Blake MD Unavailable [phone] Ja Holley MD Primary Care Provider + [phone] Frank Mak MD Unavailable [phone] Jamari Ellison DO Unavailable [phone] Fredi Unger MD Unavailable [phone] Elroy Calderon MD Unavailable [phone] Ja Holley MD Unavailable [phone] Bartolo [place] MD Unavailable [phone] Molly Spring RN Unavailable [email or web address] Maximino Dorado MD, PhD Unavailable [phone] [place] Thomson MD Unavailable [phone] Dhaval Slater MD Unavailable Encounter Details Date Type Department Care Team (Late st Contact Info) Description 05/07/2024 Procedure Pass [facility], Ct Scan - [address] [id number] Social History Tobacco Use Types Packs/Day Years [...] 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 Not on file Not on file documented as of this encounter Plan of Treatment Upcoming Encounters Date Type Department Care Team (Late st Contact Info) Description 02/19/2025 3:00 PM EST Office Visit [facility] Medicine [address] [place] [address] Ja Hol[place] MD 22 [facility], [address] [place] [address] 04/30/2025 10:30 AM EDT Office Visit [facility] [address] [place] [address] Fredi Elaine DO 22 [place] [address] 05/06/2025 12:00 PM EDT Appointment Department of Radiation Oncology [address] [place] [address] [place] Burton, MABLE [address] [place] [address] [email or web address] 07/22/2025 9:40 AM EDT Office Visit [facility] [address] [place] [address] 3rd Floor, [address] [place] [address] Asif Araiza MD, MS 22 [facility], [address] [place] [address] Scheduled Procedures Name Priority Associated Diagnoses Date/Ti fl COLONOSCOPY Gastroesophageal reflux disease with esophagitis without [...] documented as of this encounter Care Teams Painter Foreman Relationship Specialty Start Date End Date Ja Hol[place] MD [address] [place] [address], [address] [place] [address] PCP - General Internal Medicine 07/23/20 Emile [place] MD [address] [place] [address] Gastroenterology 10/31/18 Frank Mak MD [address] [place] [address], [address] [place] [address] [email or web address] Physical Medicine and Rehabilitation 11/14/20 Jamari Ellison DO [address] [place] [address] Orthopedics & Sports Medicine, [place] [address] Orthopedic Surgery 07/24/21 Fredi Unger MD [address] [place] [address] Ophthalmology 07/24/21 Elroy Calderon MD [address] [place] [address], [address] [place] [address] Urology 10/27/21 Ja [place] MD [address] [place] [address], [address] [place] [address] [email or web address] Insurance Assigned Provider 05/28/23 Bartolo [place] MD [address] [place] [address] Psychiatry 10/08/22 Molly Spring RN [address] [address] [email or web address] Bobbin Winder 02/07/23 10/07/24 Maximino Dorado MD, PhD [address] [place] [address] [email or web address] Radiation Oncology 05/03/23 [place] Thomson MD [address] [place] [address], 2nd [place] [address] [email or web address] Physical Medicine and Rehabilitation 06/26/23 Dhaval Slater MD [address] [place] [address] Dr CALIX [address] [place] [address] Neurosurgery 07/07/23 documented as of this encounter Additional Source Comments The information contained in this document represents components of the legal health record. It is not the complete legal health record.[facility]
--- OUTSIDE RECORDS SUMMARY | 2025-01-31 06:35 | XMS_ITS | Encounter Summary ---
Author Organization [facility] Address [address] [place] [address] Phone Care Team Providers Care Mental Health Tech Name Role Phone Ja Holley MD Primary Care Provider Encounter Details Date Type Department Care Team (Late st Contact Info) Description 05/24/2024 Documentation Only [facility], [address] [place] [address] [place] [address] [place] [address] Social History Tobacco Use Types [...] on filedocumented in this encounter Care Teams Mental Health Tech Relationship Specialty Start Date End Date Ja Holley MD [address] [place] [address], [address] [place] [address] PCP - General Internal Medicine 02/21/24 documented as of this encounter
--- OUTSIDE RECORDS SUMMARY | 2025-01-31 06:35 | XMS_ITS | Encounter Summary ---
Author Organization [facility] Address [address] [place] [address] Phone Care Team Providers Care Single Ending Machine Operator Name Role Phone Emile Blake MD Unavailable Ja Holley MD Primary Care Provider Frank Mak MD Unavailable Alfonzo Perkins MD Unavailable [phone] Rosalia Vargas RN Unavailable [phone] Jamari Ellison DO Unavailable Fredi Unger MD Unavailable Elroy Calderon MD Unavailable Ja Holley MD Unavailable Bartolo Morgan MD Unavailable Molly Spring RN Unavailable [email or web address] Criss Cosme Unavailable [phone] Maximino Dorado MD, PhD Unavailable [phone] Maximino Dorado MD, PhD Unavailable [phone] Lincoln Thomson MD Unavailable Dhaval Slater MD Unavailable Encounter Details Date Type Department Care Team (Late st Contact Info) Description 11/05/2020 Procedure Pass OR Admitting Dept - Virtual Department [address] [place] [address] Social History Tobacco Use Types Packs/Day Years [...] high school, GED, job training, learning the Malawian language, technical skills, or developing parenting skills)? [...] 3:00 PM EST Office Visit [facility] [address] [place] [address] [place] [address] Ja Holley MD [address] [place] [address], [address] [place] [address] 04/30/2025 10:30 AM EDT Office Visit [facility] [address] [place] [address] [place] [address] Fredi Elaine DO [address] [place] [address] 05/06/2025 12:00 PM EDT Appointment Department of Radiation Oncology [address] [place] [address] Lincoln Burton, MABLE [address] [place] [address] [email or web address] 07/22/2025 9:40 AM EDT Office Visit [facility] [address] [place] [address] 3rd Floor, [address] [place] [address] Asif Araiza MD, MS 22 [facility], [address] [place] [address] Scheduled Procedures Name Priority Associated Diagnoses Date/Ti [...] documented as of this encounter Care Teams Single Ending Machine Operator Relationship Specialty Start Date End Date Ja Holley MD [address] [place] [address], [address] [place] [address] PCP - General Internal Medicine 07/23/20 Emile Blake MD [address] [place] [address] Gastroenterology 10/31/18 Frank Mak MD [address] [place] [address], [address] [place] [address] [email or web address] Physical Medicine and Rehabilitation 11/14/20 Alfonzo Perkins MD [address] [place] [address] Psychiatry 02/01/21 10/07/22 Rosalia Vargas, KATEY 30 [place] [address] PHC Engine Tester 02/12/21 03/10/21 Jamari Ellison DO [address] [place] [address] Orthopedics & Sports Medicine, [place] [address] Orthopedic Surgery 07/24/21 Fredi Unger MD [address] [address] Ophthalmology 07/24/21 Elroy Calderon MD [address] [place] [address] [email or web address] Urology 10/27/21 Ja Holley MD [address] [place] [address], [address] [place] [address] [email or web address] Insurance Assigned Provider 05/28/23 Bartolo Morgan MD [address] [place] [address] Psychiatry 10/08/22 Molly Spring RN [address] [place] [address] [email or web address] 02/07/23 10/07/24 Criss Cosme 10 [place] [address] [email or web address] [facility] Community Health Worker 03/29/23 03/29/23 Maximino Dorado MD, PhD [address] [place] [address] [email or web address] Radiation Oncology 05/03/23 Maximino Dorado MD, PhD [address] [place] [address] [email or web address] Radiation Oncology 06/01/23 06/25/23 Lincoln Thomson MD [address] [place] [address], 2nd [place] [address] Physical Medicine and Rehabilitation 06/26/23 Dhaval Slater MD [address] [place] [address] [place] [address] Neurosurgery 07/07/23 documented as of this encounter Additional Source Comments The information contained in this document represents components of the legal health record. It is not the complete legal health record.[facility]
--- OUTSIDE RECORDS SUMMARY | 2025-01-31 06:35 | XMS_ITS | Encounter Summary ---
Author Organization [facility] Address [address] [place] [address] Phone Care Team Providers Care Territory Sales Representative Name Role Phone Emile Blake MD Unavailable Ja Holley MD Primary Care Provider Frank Mak MD Unavailable [phone] Alfonzo Perkins MD Unavailable Rosalia Vargas RN Unavailable [phone] Jamari Ellison DO Unavailable Fredi Unger MD Unavailable Elroy Calderon MD Unavailable [phone] Ja Holley MD Unavailable Bartolo Morgan MD Unavailable Molly Spring RN Unavailable [email or web address] Criss Cosme Unavailable [phone] Maximino Dorado MD, PhD Unavailable [phone] Maximino Dorado MD, PhD Unavailable [phone] Lincoln Thomson MD Unavailable [phone] Dhaval Slater MD Unavailable Encounter Details Date Type Department Care Team (Latest Contact Info) Description 10/21/2020 Prep for Surgery [facility] General Surgical Care [address] [place] [address] Monique Cuenca MD 15 [facility], 2nd [place] [address] [email or web address] Non-recurrent unilateral inguinal hernia without obstruction or [...] high school, GED, job training, learning the Moroccan language, technical skills, or developing parenting skills)? 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 Not on file Not on file disabled Not on file Not on file Not on file documented as of this encounter Plan of Treatment Upcoming Encounters Date Type Department Care Team (Late st Contact Info) Description 02/19/2025 3:00 PM EST Office Visit [facility] Medicine [address] [place] [address] [place] [address] Ja Holley MD 22 [facility], [address] [place] [address] 04/30/2025 10:30 AM EDT Office Visit [facility] [address] [place] [address] [place] [address] Fredi Elaine DO [address] [place] [address] 05/06/2025 12:00 PM EDT Appointment Department of Radiation Oncology [address] [place] [address] Lincoln Burton NP [address] [place] [address] [email or web address] 07/22/2025 9:40 AM EDT Office Visit [facility] [address] [place] [address] 3rd Floor, [address] [place] [address] Asif Araiza MD, MS 22 [facility], [address] [address] Scheduled Procedures Name Priority Associated Diagnoses Date/Ti [...] documented as of this encounter Care Teams Territory Sales Representative Relationship Specialty Start Date End Date Ja Holley MD 22 [facility], [address] [place] [address] PCP - General Internal Medicine 07/23/20 Emile Blake MD [address] [place] [address] Gastroenterology 10/31/18 Frank Mak MD [address] [place] [address], [address] [place] [address] [email or web address] Physical Medicine and Rehabilitation 11/14/20 Alfonzo Perkins MD [address] [place] [address] Psychiatry 02/01/21 10/07/22 Rosalia Vargas, KATEY 30 [place] [address] PHCM Dials Supervisor 02/12/21 03/10/21 Jamari Ellison DO [address] [place] [address] [facility] [place] [address] [email or web address] Orthopedic Surgery 07/24/21 Fredi Unger MD [address] [place] [address] 2 [place] [address] Ophthalmology 07/24/21 Elroy Calderon MD [address] [place] [address], [address] [place] [address] [email or web address] Urology 10/27/21 Ja Holley MD [address] [place] [address], [address] [place] [address] [email or web address] Insurance Assigned Provider 05/28/23 Bartolo Morgan MD [address] [place] [address] Psychiatry 10/08/22 Molly Spring, KATEY [address] [place] [address] [email or web address] PHCM Dials Supervisor 02/07/23 10/07/24 Criss Cosme 10 [place] [address] [email or web address] PHCM Community Health Worker 03/29/23 03/29/23 Maximino Dorado MD, PhD [address] [place] [address] [email or web address] Radiation Oncology 05/03/23 Maximino Dorado MD, PhD [address] [place] [address] [email or web address] Radiation Oncology 06/01/23 06/25/23 Lincoln Thomson MD [address] [place] [address], 2nd [place] [address] [email or web address] Physical Medicine and Rehabilitation 06/26/23 Dhaval Slater MD [address] [place] [address] Dr CALIX [address] [place] [address] Neurosurgery 07/07/23 documented as of this encounter Additional Source Comments The information contained in this document represents components of the legal health record. It is not the complete legal health record.[facility]
--- OUTSIDE RECORDS SUMMARY | 2025-01-31 06:36 | XMS_ITS | Encounter Summary ---
Author Organization [facility] Address [address] [place] [address] Phone Care Team Providers Care Cat Driver Name Role Phone Kellee Gomez NP Primary Care Provider Leonel Alegria MD Primary Care Provider [phone] Emile Blake MD Unavailable Andrei Coon DO Primary Care Provider Lupis Copeland MD Primary Care Provider [phone] Gordon Moralez MD Primary Care Provider [phone] Ja Holley MD Primary Care Provider [phone] Frank Mak MD Unavailable Alfonzo Perkins MD Unavailable Rosalia Vargas RN Unavailable [phone] Jamari Ellison DO Unavailable Fredi Unger MD Unavailable Elroy Calderon MD Unavailable [phone] Ja Holley MD Unavailable [phone] Bartolo Morgan MD Unavailable [phone] Molly Spring RN Unavailable [email or web address] Criss Cosme Unavailable Maximino Dorado MD, PhD Unavailable [phone] Maximino Dorado MD, PhD Unavailable [phone] Lincoln Thomson MD Unavailable [phone] Dhaval Slater MD Unavailable Encounter Details Date Type Department Care Team (Late Contact Info) Description 03/02/2017 Ancillary Orders Virtual Department 30 [place] [address] Emile Blake MD [address] [place] [address] Lower abdominal pain; Abnormal results of liver [...] Description 02/19/2025 3:00 PM EST Office Visit [facility] [address] [place] [address] Ja Holley MD [address] [place] [address], [address] [place] [address] 04/30/2025 10:30 AM EDT Office Visit [facility] [address] [place] [address] Fredi Elaine DO [address] [place] [address] 05/06/2025 12:00 PM EDT Appointment Department of Radiation Oncology [address] [place] [address] Lincoln Burton, MABLE 75 [facility] ASB1-L2 [place] [address] [email or web address] 07/22/2025 9:40 AM EDT Office Visit [facility] [address] [place] [address] 3rd Floor, [address] [place] [address] Asif Araiza MD, MS 22 [facility], [address] [place] [address] [email or web address] Scheduled Procedures Name Priority [...] documented as of this encounter Care Teams Cat Driver Relationship Specialty Start Date End Date Kellee Gomez NP [facility] [place] [address] [email or web address] PCP - General Family Medicine 01/19/17 05/19/17 [place] [address] [email or web address] PCP - General Internal Medicine 05/20/17 01/07/19 Andrei Coon DO [address] [place] [address] [email or web address] PCP - General Family Medicine 01/08/19 01/03/20 Lupis Copeland MD [address] [place] [address] [email or web address] PCP - General Family Medicine 01/04/20 06/09/20 Gordon Moralez MD [address] [facility] [address] [place] [address] Saji [email or web address] PCP - General 06/10/20 07/22/20 Ja Holley MD [address] [place] [address], [address] [place] [address] PCP - General Internal Medicine 07/23/20 Emile Blake MD [address] [place] [address] Gastroenterology 10/31/18 Frank Mak MD [address] [place] [address], [address] [place] [address] [email or web address] Physical Medicine and Rehabilitation 11/14/20 Alfonzo Perkins MD [address] [place] [address] Psychiatry 02/01/21 10/07/22 Rosalia Vargas, KATEY 30 [place] [address] PHCM Commutator Assembler 02/12/21 03/10/21 Jamari Ellison DO [address] [place] [address] [facility] [address] [email or web address] Orthopedic Surgery 07/24/21 Fredi Unger MD [address] [place] [address] 2 [place] [address] Ophthalmology 07/24/21 Elroy Calderon MD [address] [place] [address], [address] [place] [address] [email or web address] Urology 10/27/21 Ja Holley MD [address] [place] [address], [address] [place] [address] [email or web address] Insurance Assigned Provider 05/28/23 Bartolo Morgan MD [address] [place] [address] Psychiatry 10/08/22 Molly Spring RN [address] [place] [address] [email or web address] Commutator Assembler 02/07/23 10/07/24 Criss Cosme 10 [place] [address] [email or web address] [facility] Community Health Worker 03/29/23 03/29/23 Maximino Dorado MD, PhD [address] [place] [address] [email or web address] Radiation Oncology 05/03/23 Maximino Dorado MD, PhD [address] [place] [address] [email or web address] Oncology 06/01/23 06/25/23 Lincoln Thomson MD [address] [place] [address], 2nd [place] [address] [email or web address] Physical Medicine and Rehabilitation 06/26/23 Dhaval Slater MD [address] [place] [address] [place] [address] Neurosurgery 07/07/23 documented as of this encounter Additional Source Comments The information contained in this document represents components of the legal health record. It is not the complete legal health record.[facility]
--- OUTSIDE RECORDS SUMMARY | 2025-01-31 06:36 | XMS_ITS | Encounter Summary ---
Author Organization [facility] Address [address] [place] [address] Phone Care Team Providers Care Sharebroker Name Role Phone Kellee Gomez NP Primary Care Provider Leonel Alegria MD Primary Care Provider Emile Blake MD Unavailable Andrei Coon DO Primary Care Provider Jami Copeland MD Primary Care Provider [phone] Gordon Moralez MD Primary Care Provider [phone] Ja Holley MD Primary Care Provider [phone] Frank Mak MD Unavailable Alfonzo Perkins MD Unavailable Rosalia Vargas RN Unavailable [phone] Jamari Ellison DO Unavailable Fredi Unger MD Unavailable Elroy Calderon MD Unavailable [phone] Ja Holley MD Unavailable [phone] Bartolo Morgan MD Unavailable [phone] Molly Spring RN Unavailable [email or web address] Criss Cosme Unavailable [phone] Maximino Dorado MD, PhD Unavailable [phone] Maximino Dorado MD, PhD Unavailable [phone] Lincoln Thomson MD Unavailable Dhaval Slater MD Unavailable Encounter Details Date Type Department Care Team (Late Contact Info) Description 01/20/2017 Procedure Pass [facility] Endoscopy Admitting Dept Virtual Department [address] [place] [address] Social History Tobacco Use Types Packs/Day Years [...] Description 02/19/2025 3:00 PM EST Office Visit [facility] [address] [address] Ja Holley MD [address] [place] [address], [address] [place] [address] 04/30/2025 10:30 AM EDT Office Visit [facility] [address] [place] [address] Fredi Elaine DO 22 [place] [address] 05/06/2025 12:00 PM EDT Appointment Department of Radiation Oncology [address] [place] [address] Lincoln Burton, FUND CONTROLLER [address] [place] [address] [email or web address] 07/22/2025 9:40 AM EDT Office Visit [facility] 22 [facility] 3rd Floor, [address] [place] [address] Asif Araiza MD, MS 22 [facility], [address] [place] [address] [email or web address] Scheduled Procedures Name Priority Associated Diagnoses Date/Ti [...] documented as of this encounter Care Teams Sharebroker Relationship Specialty Start Date End Date Kellee Gomez NP [address] [place] [address] [email or web address] PCP - General Family Medicine 01/19/17 05/19/17 [place] [address] [email or web address] PCP - General Internal Medicine 05/20/17 01/07/19 Andrei Coon DO [address] [place] [address] [email or web address] PCP - General Family Medicine 01/08/19 01/03/20 Jami Copeland MD [address] [place] [address] [email or web address] PCP - General Family Medicine 01/04/20 06/09/20 Gordon Moralez MD 110 [facility] 212 [place] [address] Saji [email or web address] PCP - General 06/10/20 07/22/20 Ja Holley MD 22 [facility], [address] [place] [address] PCP - General Internal Medicine 07/23/20 Emile Blake MD [address] [address] Gastroenterology 10/31/18 Frank Mak MD 22 [facility], [address] [place] [address] [email or web address] Physical Medicine and Rehabilitation 11/14/20 Alfonzo Perkins MD [address] [place] [address] Psychiatry 02/01/21 10/07/22 Rosalia Vargas, KATEY 30 [place] [address] PHC Lap Runner 02/12/21 03/10/21 Jamari Ellison DO [address] [place] [address] [facility] [place] [address] Orthopedic Surgery 07/24/21 Fredi Unger MD [address] [place] [address] 2 [place] [address] Ophthalmology 07/24/21 Elroy Calderon MD [address] [place] [address], [address] [place] [address] [email or web address] Urology 10/27/21 Ja Holley MD [address] [place] [address], [address] [place] [address] [email or web address] Insurance Assigned Provider 05/28/23 Bartolo Morgan MD [address] [place] [address] Psychiatry 10/08/22 Molly Spring, KATEY [address] [address] [email or web address] [email or web address] 02/07/23 10/07/24 Criss Cosme 10 [place] [address] [email or web address] PHC Community Health Worker 03/29/23 03/29/23 Maximino Dorado MD, PhD [address] [place] [address] [email or web address] Radiation Oncology 05/03/23 Maximino Dorado MD, PhD [address] [place] [address] [email or web address] Radiation Oncology 06/01/23 06/25/23 Lincoln Thomson MD [address] [place] [address], 2nd [place] [address] [email or web address] Physical Medicine and Rehabilitation 06/26/23 Dhaval Slater MD [address] [place] [address] [place] [address] Neurosurgery 07/07/23 documented as of this encounter Additional Source Comments The information contained in this document represents components of the legal health record. It is not the complete legal health record.[facility]
--- OUTSIDE RECORDS SUMMARY | 2025-01-31 06:36 | XMS_ITS | Encounter Summary ---
Author Organization [facility] Address [address] [place] [address] Phone Care Team Providers Care Equip Tech Name Role Phone Kellee Gomez NP Primary Care Provider Leonel Alegria MD Primary Care Provider Emile Blake MD Unavailable Andrei Coon DO Primary Care Provider Lupis Copeland MD Primary Care Provider [phone] Gordon Moralez MD Primary Care Provider [phone] Ja Holley MD Primary Care Provider [phone] Frank Mak MD Unavailable Alfonzo Perkins MD Unavailable Rosalia Vargas RN Unavailable [phone] Jamari Ellison DO Unavailable Fredi Unger MD Unavailable Elroy Calderon MD Unavailable [phone] Ja Holley MD Unavailable [phone] Bartolo Morgan MD Unavailable [phone] Molly Spring RN Unavailable [email or web address] Criss Cosme Unavailable [phone] Maximino Dorado MD, PhD Unavailable [phone] Maximino Dorado MD, PhD Unavailable [phone] Lincoln Thomson MD Unavailable Dhaval Slater MD Unavailable Encounter Details Date Type Department Care Team (Latest Contact Info) Description 03/02/2017 Transcribe Orders [facility] [place] [address] 2nd [place] [address] Emile Blake MD [address] [place] [address] Inguinal pain, unspecified laterality (Primary Dx); Nonspecific [...] Description 02/19/2025 3:00 PM EST Office Visit [address] [address] Ja Holley MD [address] [place] [address], [address] [place] [address] 04/30/2025 10:30 AM EDT Office Visit [facility] [address] [place] [address] [place] [address] Fredi Elaine DO [address] [place] [address] 05/06/2025 12:00 PM EDT Appointment Department of Radiation Oncology [address] [place] [address] Lincoln Burton NP 75 [facility] AS[address]L2 [place] [address] [email or web address] 07/22/2025 9:40 AM EDT Office Visit [facility] [address] [facility] 3rd Floor, [address] [place] [address] Asif Araiza MD, MS 22 [facility], [address] [place] [address] [email or web address] Scheduled Procedures Name Priority Associated Diagnoses Date/Ti me COLONOSCOPY Gastroesophageal reflux disease with esophagitis without hemorrhage ESOPHAGOGASTRODUODENOSCOPY Gastroesophageal reflux disease with esophagitis without hemorrhage documented as of this encounter Results * Sedimentation rate (ESR) (03/02/2017 10:54 AM EST) [facility] ESR 9 0 - 20 mm/h [facility] Blood 03/02/2017 10:5 4 AM EST 03/02/2017 11:04 AM EST us Emile Blake MD LAB BLOOD BKR ORDERABLES Fin al Result [address] [address] * Ferritin (03/02/2017 10:54 AM EST) [facility] FERRITIN 237 30 - 400 ug/L [facility] Blood 03/02/2017 10:5 4 AM EST 03/02/2017 11:04 AM EST us Emile Blake MD LAB BLOOD BKR ORDERABLES Fin al Result [address] [address] * C-Reactive Protein (03/02/2017 10:54 AM EST) C REACTIVE PROTEIN 0.3 0 - 0.5 mg/L [facility] Blood 03/02/2017 10:5 4 AM EST 03/02/2017 11:04 AM EST us Emile Blake MD LAB BLOOD BKR ORDERABLES Fin al Result [address] [address] * (ABNORMAL) Comprehensive metabolic panel (03/02/2017 10:54 AM EST) Pathologist [facility] SODIUM 140 133 - 146 mmol/L [facility] POTASSIUM 4.9 3.3 - 5.1 mmol/L [facility] CHLORIDE 100 96 - 108 mmol/L [facility] CO2 28 21 - 35 mmol/L [facility] BUN 21(H) 6 - 19 mg/dL [facility] CREATININE 0.90 0.5 - 1.5 mg/dL [facility] GLUCOSE 115(H) 70 - 99 mg/dL [facility] ALBUMIN 4.7 3.9 - 4.8 g/dL [facility] TOTAL PROTEIN 7.6 6.5 - 8.0 g/dL [facility] CALCIUM 10.0 8.4 - 10.3 mg/dL [facility] ALKALINE PHOSPHATASE 94 39 - 117 U/L [facility] TOTAL BILIRUBIN 0.7 0 - 1.2 mg/dL [facility] AST 29 0 - 37 U/L [facility] ALT 43(H) 0 - 40 U/L [facility] GLOBULIN 2.9 1 - 4.8 g/dL [facility] EGFR >60 >60 mL/min/1.7 3m2 [facility] Comment:Abnormal if <60. If patient is -Kazakh, multiply the result by 1.21. ANION GAP 17 10 - 20 mmol/L [facility] Blood 03/02/2017 10:5 4 AM EST 03/02/2017 11:04 AM EST us Emile Blake MD LAB BLOOD BKR ORDERABLES Fin al Result [address] [address] * Tissue transglutaminase IgA (03/02/2017 10:54 AM EST) TTG IGA ANTIBODY <1.2 <4.0 (Negative) U/mL [facility] DPT OF LAB MED AND PAT+ Blood 03/02/2017 10:5 4 AM EST 03/02/2017 11:04 AM EST Emile Blake MD LAB BLOOD BKR ORDERABLES Fin al Result Performing Organization Address [facility]/ZIP Co de Phone Number [facility] DPT OF LAB MED AND PAT+ [address] [place] [address] * Immunoglobulin A (03/02/2017 10:54 AM EST) IgA 102 70 - 400 mg/dL [facility] Blood 03/02/2017 10:5 4 AM EST 03/02/2017 11:04 AM EST Emile Blake MD LAB BLOOD BKR ORDERABLES Fin al Result Performing Organization Address [facility] Co de Phone Number [address] [address] * Gliadin deamidated antibody, IgG/IgA (03/02/2017 10:54 AM EST) Gliadin Ab, IGA <10.0 <20.0 (Negative) U [facility] DPT OF LAB MED AND PAT+ GLIADIN AB IGG <10.0 <20.0 (Negative) U [facility] DPT OF LAB MED AND PAT+ Blood 03/02/2017 10:5 4 AM EST 03/02/2017 11:04 AM EST us Emile Blake MD LAB BLOOD ORDERABLES Final R esult Performing Organization Address City/[facility]/ZIP Co de Phone Number [facility] DPT OF LAB MED AND PAT+ [address] [place] [address] * CBC and differential (03/02/2017 10:54 AM EST) WBC 6.20 3.40 - 11.20 K/uL [facility] RBC 5.33 4.50 - 5.50 M/uL [facility] HGB 15.8 13.0 - 17.0 g/dL [facility] HCT 46.7 40.0 - 51.0 % [facility] PLT 326 130 - 400 K/uL [facility] MCV 87.6 79.0 - 98.0 fL [facility] MCH 29.6 27.0 - 34.8 pg [facility] MCHC 33.8 31.5 - 36.0 g/dL [facility] RDW 13.4 10.8 - 14.6 % [facility] MPV 10.0 9.4 - 12.4 fl [facility] NRBC 0.00 /100 WBCs [facility] ABSOLUTE NRBC 0.00 K/uL [facility] DIFF METHOD Auto [facility] NEUTS 52.8 45.30 - 77.70 % [facility] LYMPHS 33.5 12.30 - 39.70 % [facility] MONOS 8.4 4.10 - 12.80 % [facility] EOS 4.0 0 - 7.2 % [facility] BASOS 1.0 0 - 2.80 % [facility] Granulocytes, immature (%) 0.3 0.0 - 0.9 % [facility] ABSOLUTE NEUTS 3.27 1.40 - 7.70 K/uL [facility] ABSOLUTE LYMPHS 2.08 0.60 - 3.20 K/uL [facility] ABSOLUTE MONOS 0.52 0.11 - 0.59 K/uL [facility] ABSOLUTE EOS 0.25 0.01 - 0.50 K/uL [facility] ABSOLUTE BASOS 0.06 0.00 - 0.08 K/uL [facility] Granulocytes, immature 0.02 0.00 - 0.05 K/uL [facility] Blood 03/02/2017 10:5 4 AM EST 03/02/2017 11:04 AM EST us Emlie Blake MD LAB BLOOD BKR ORDERABLES Fin al Result Performing Organization Address [facility] Co de Phone Number [address] [address] * Smooth Muscle Antibody (03/02/2017 10:54 AM EST) ANTI-SMOOTH MUSCLE AB Negative Negative [facility] DPT OF LAB MED AND PAT+ Comment: (NOTE) ADDITIONAL INFORMATION This test was developed and its performance characteristics determined by [facility] in a manner consistent with CLIA requirements. This test has not been cleared or approved by the U.S. Food and Drug Administration. Blood 03/02/2017 10:5 4 AM EST 03/02/2017 11:04 AM EST Emile Blake MD LAB BLOOD ORDERABLES Final R esult Performing Organization Address [facility] Co de Phone Number [facility] DPT OF LAB MED AND PAT+ [address] [place] [address] * Antinuclear antibody (RAFA) (03/02/2017 10:54 AM EST) RAFA SCREEN ON HEP 2 Negative Negative [facility] Blood 03/02/2017 10:5 4 AM EST 03/02/2017 11:04 AM EST Emile Blake MD LAB BLOOD BKR ORDERABLES Fin al Result Performing Organization Address [facility] Co de Phone Number [address] [address] * Anti-Mitochondrial Antibody (AMA) (03/02/2017 10:54 AM EST) MITOCHONDRIAL AB M2 <0.1 <0.1 (Negative) U [facility] DPT OF LAB MED AND PAT+ Blood 03/02/2017 10:5 4 AM EST 03/02/2017 11:04 AM EST us Emile Blake MD LAB BLOOD ORDERABLES Final R esult Performing Organization Address City/[facility]/ZIP Co de Phone Number [facility] DPT OF LAB MED AND PAT+ [address] [place] [address] * Luscb-0-nyzhyxryufv phenotyping (03/02/2017 10:54 AM EST) ALPHA 1 ANTITRYPSIN 112 100 - 190 mg/dL [facility] DPT OF LAB MED AND PAT+ A1A PHENOTYPE MM bands [facility] DPT OF LAB MED AND PAT+ Comment: (NOTE) A single M isoform is detected. In the context of a normal lmqkc-8-[id number] concentration, this is consistent with an MM phenotype. Blood 03/02/2017 10:5 4 AM EST 03/02/2017 11:04 AM EST Emile Blake MD LAB BLOOD ORDERABLES Final R esult Performing Organization Address City/[facility] Co de Phone Number [facility] DPT OF LAB MED AND PAT+ [address] [place] [address] documented in this encounter Visit Diagnoses Diagnosis [...] documented as of this encounter Care Teams Equip Tech Relationship Specialty Start Date End Date Kellee Gomez NP [address] [place] [address] PCP - General Family Medicine 01/19/17 05/19/17 [place] [address] [email or web address] PCP - General Internal Medicine 05/20/17 01/07/19 Andrei Coon DO [address] [place] [address] [email or web address] PCP - General Family Medicine 01/08/19 01/03/20 Lupis Copeland MD [address] [place] [address] [email or web address] PCP - General Family Medicine 01/04/20 06/09/20 Gordon Moralez MD [address] [place] [address] [email or web address] [email or web address] PCP - General 06/10/20 07/22/20 Ja Holley MD [address] [place] [address], [address] [place] [address] [email or web address] PCP - General Internal Medicine 07/23/20 Emile Blake MD [address] [place] [address] [email or web address] Gastroenterology 10/31/18 Frank Mak MD [address] [place] [address], [address] [place] [address] [email or web address] Physical Medicine and Rehabilitation 11/14/20 Alfonzo Perkins MD [address] [place] [address] Psychiatry 02/01/21 10/07/22 Rosalia Vargas RN [address] [place] [address] [email or web address] PHCM Calender Operator 02/12/21 03/10/21 Jamari Ellison DO [address] [place] [address] Orthopedics & Sports Medicine, [facility] [place] [address] Orthopedic Surgery 07/24/21 Fredi Unger MD [address] [place] [address] Ophthalmology 07/24/21 Elroy Calderon MD [address] [place] [address], [address] [place] [address] [email or web address] Urology 10/27/21 Ja Holley MD [address] [place] [address], [address] [place] [address] [email or web address] Insurance Assigned Provider 05/28/23 Bartolo Morgan MD [address] [place] [address] Psychiatry 10/08/22 Molly Spring RN [address] [address] [email or web address] Calender Operator 02/07/23 10/07/24 Criss Cosme [address] [place] [address] [email or web address] [facility] Community Health Worker 03/29/23 03/29/23 Maximino Dorado MD, PhD [address] [place] [address] [email or web address] Radiation Oncology 05/03/23 Maximino Dorado MD, PhD [address] [place] [address] [email or web address] Radiation Oncology 06/01/23 06/25/23 Lincoln Thomson MD [address] [place] [address], 2nd [place] [address] Physical Medicine and Rehabilitation 06/26/23 Dhaval Slater MD [address] [place] [address] [place] [address] Neurosurgery 07/07/23 documented as of this encounter Additional Source Comments The information contained in this document represents components of the legal health record. It is not the complete legal health record.[facility]
--- OUTSIDE RECORDS SUMMARY | 2025-01-31 06:36 | XMS_ITS | Encounter Summary ---
Author Organization [facility] Address [address] [place] [address] Phone Care Team Providers Care Packaging Tech Name Role Phone Kellee Gomez NP Primary Care Provider Leonel Alegria MD Primary Care Provider [phone] Emile Blake MD Unavailable Andrei Coon DO Primary Care Provider Lpuis Copeland MD Primary Care Provider [phone] Gordon Moralez MD Primary Care Provider [phone] Ja Holley MD Primary Care Provider [phone] Frank Mak MD Unavailable Alfonzo Perkins MD Unavailable Rosalia Vargas RN Unavailable [phone] Jamari Ellison DO Unavailable Fredi Unger MD Unavailable Elroy Calderon MD Unavailable [phone] Ja Holley MD Unavailable [phone] Bartolo Morgan MD Unavailable [phone] Molly Spring RN Unavailable [email or web address] Criss Cosme Unavailable [phone] Maximino Dorado MD, PhD Unavailable [phone] Maximino Dorado MD, PhD Unavailable [phone] Lincoln Thomson MD Unavailable [phone] Dhaval Slater MD Unavailable Encounter Details Date Type Department Care Team (Latest Contact Info) Description 01/19/2017 Transcribe Orders [facility] [place] [address] 2nd [place] [address] Dorita Mcelroy PA 10 [place] [address] Abdominal pain, epigastric (Primary Dx) Social History [...] Description 02/19/2025 3:00 PM EST Office Visit [facility] [address] [place] [address] Ja Holley MD [address] [place] [address], [address] [place] [address] 04/30/2025 10:30 AM EDT Office Visit [facility] [address] [place] [address] Fredi Elaine DO [address] [place] [address] 05/06/2025 12:00 PM EDT Appointment Department of Radiation Oncology [address] [place] [address] Lincoln Burton, [employer] [address] [place] [address] [email or web address] 07/22/2025 9:40 AM EDT Office Visit [facility] [address] [facility] 3rd Floor, [address] [place] [address] Asif Araiza MD, MS 22 [facility] [place], [address] [place] [address] Scheduled Procedures Name Priority Associated Diagnoses Date/Ti pr COLONOSCOPY Gastroesophageal reflux disease with esophagitis without hemorrhage ESOPHAGOGASTRODUODENOSCOPY Gastroesophageal reflux disease with esophagitis without hemorrhage documented as of this encounter Results * Lipase (01/19/2017 11:41 AM EST) Pathologist [facility] LIPASE 32 16 - 63 U/L [facility] Blood 01/19/2017 11:4 1 AM EST 01/19/2017 11:45 AM EST us Dorita SALES LAB BLOOD BKR ORDERABLES Fi nal Result [facility] [address] [place] [address] * (ABNORMAL) Comprehensive metabolic panel (01/19/2017 11:41 AM EST) Pathologist [facility] SODIUM 140 133 - 146 mmol/L [facility] POTASSIUM 4.5 3.3 - 5.1 mmol/L [facility] CHLORIDE 101 96 - 108 mmol/L [facility] CO2 29 21 - 35 mmol/L [facility] BUN 19 6 - 19 mg/dL [facility] CREATININE 1.10 0.5 - 1.5 mg/dL [facility] GLUCOSE 97 70 - 99 mg/dL [facility] ALBUMIN 4.3 3.9 - 4.8 g/dL [facility] TOTAL PROTEIN 7.1 6.5 - 8.0 g/dL [facility] CALCIUM 9.7 8.4 - 10.3 mg/dL [facility] ALKALINE PHOSPHATASE 89 39 - 117 U/L [facility] TOTAL BILIRUBIN 0.6 0 - 1.2 mg/dL [facility] AST 48(H) 0 - 37 U/L [facility] ALT 64(H) 0 - 40 U/L [facility] GLOBULIN 2.8 1 - 4.8 g/dL [facility] EGFR >60 60 - 1000 mL/min/1.7 3m2 [facility] Comment:Abnormal if <60. If patient is -Georgian, multiply the result by 1.21. ANION GAP 15 10 - 20 mmol/L [facility] Blood 01/19/2017 11:4 1 AM EST 01/19/2017 11:45 AM EST us Dorita SALES LAB BLOOD BKR ORDERABLES Fi nal Result Performing Organization Address City/State/[facility] Co de Phone Number [facility] [address] [place] [address] * CBC and differential (01/19/2017 11:41 AM EST) WBC 6.48 3.40 - 11.20 K/uL [facility] RBC 5.16 4.50 - 5.50 M/uL [facility] HGB 15.1 13.0 - 17.0 g/dL [facility] HCT 44.7 40.0 - 51.0 % [facility] PLT 280 130 - 400 K/uL [facility] MCV 86.6 79.0 - 98.0 fL [facility] MCH 29.3 27.0 - 34.8 pg [facility] MCHC 33.8 31.5 - 36.0 g/dL [facility] RDW 13.2 10.8 - 14.6 % [facility] MPV 9.8 9.4 - 12.4 [facility] NRBC 0.00 /100 WBCs [facility] ABSOLUTE NRBC 0.00 K/uL [facility] DIFF METHOD Auto [facility] NEUTS 50.0 45.30 - 77.70 % [facility] LYMPHS 36.7 12.30 - 39.70 % [facility] MONOS 8.8 4.10 - 12.80 % [facility] EOS 2.9 0 - 7.2 % [facility] BASOS 1.1 0 - 2.80 % [facility] Granulocytes, immature (%) 0.5 0.0 - 0.9 % [facility] ABSOLUTE NEUTS 3.24 1.40 - 7.70 K/uL [facility] ABSOLUTE LYMPHS 2.38 0.60 - 3.20 K/uL [facility] ABSOLUTE MONOS 0.57 0.11 - 0.59 K/uL [facility] ABSOLUTE EOS 0.19 0.01 - 0.50 K/uL [facility] ABSOLUTE BASOS 0.07 0.00 - 0.08 K/uL [facility] Granulocytes, immature 0.03 0.00 - 0.05 K/uL [facility] Blood 01/19/2017 11:4 1 AM EST 01/19/2017 11:45 AM EST us Dorita SALES LAB BLOOD BKR ORDERABLES Fi nal Result Performing Organization Address City/State/[facility] Co de Phone Number [address] [address] documented in this encounter Visit Diagnoses Diagnosis Abdominal pain, epigastric- Primary documented in this encounter Additional Health Concerns Infection Onset Date Last Indicated Resolved Time CoV-Exposed Comment:Recent close contact documented in the COVID-19 PCR/PRO order 12/04/2020 12/18/2020 12/19/2020 1:25 AM E DT CoV-Risk 01/21/2022 01/21/2022 02/01/2022 1:32 AM EST Resp-Risk 01/25/2025 01/25/2025 documented as of this encounter Care Teams Packaging Tech Relationship Specialty Start Date End Date Kellee Gomez NP [address] [place] [address] [email or web address] PCP - General Family Medicine 01/19/17 05/19/17 [place] [address] PCP - General Internal Medicine 05/20/17 01/07/19 Andrei Coon DO [address] [place] [address] [email or web address] PCP - General Family Medicine 01/08/19 01/03/20 Lupis Copeland MD [address] [place] [address] [email or web address] PCP - General Family Medicine 01/04/20 06/09/20 Gordon Moralez MD [address] [place] [address] Saji [email or web address] PCP - General 06/10/20 07/22/20 Ja Holley MD [address] [place] [address], [address] [place] [address] PCP - General Internal Medicine 07/23/20 Emile Blake MD [address] [place] [address] [email or web address] Gastroenterology 10/31/18 Frank Mak MD [address] [place] [address], [address] [place] [address] [email or web address] Physical Medicine and Rehabilitation 11/14/20 Alfonzo Perkins MD [address] [place] [address] Psychiatry 02/01/21 10/07/22 Rosalia Vargas RN [address] [place] [address] [email or web address] PHCM Licensed Professional Counselor 02/12/21 03/10/21 Jamari Ellison DO [address] [place] [address] [facility] [address] Orthopedic Surgery 07/24/21 Fredi Unger MD [address] [place] [address] Ophthalmology 07/24/21 Elroy Calderon MD [address] [place] [address] [email or web address] Urology 10/27/21 Ja Holley MD [address] [place] [address], [address] [place] [address] [email or web address] Insurance Assigned Provider 05/28/23 Bartolo Morgan MD [address] [place] [address] Psychiatry 10/08/22 Molly Spring RN [address] [address] [email or web address] Licensed Professional Counselor 02/07/23 10/07/24 Criss Cosme [address] [place] [address] [email or web address] [facility] Community Health Worker 03/29/23 03/29/23 Maximino Dorado MD, PhD [address] [place] [address] [email or web address] Oncology 05/03/23 Maximino Dorado MD, PhD [address] [place] [address] [email or web address] Radiation Oncology 06/01/23 06/25/23 Lincoln Thomson MD [address] [place] [address], [address] [place] [address] [email or web address] Physical Medicine and Rehabilitation 06/26/23 Dhaval Slater MD [address] [place] [address] [place] [address] Neurosurgery 07/07/23 documented as of this encounter Additional Source Comments The information contained in this document represents components of the legal health record. It is not the complete legal health record.[facility]
--- OUTSIDE RECORDS SUMMARY | 2025-01-31 06:36 | XMS_ITS | Encounter Summary ---
Author Organization [facility] Address [address] [place] [address] Phone Care Team Providers [facility] Owner Name Role Phone Kellee Gomez NP Primary Care Provider Leonel Alegria MD Primary Care Provider Emile Blake MD Unavailable Andrei Coon DO Primary Care Provider Lupis Copeland MD Primary Care Provider [phone] Gordon Moralez MD Primary Care Provider [phone] Ja Holley MD Primary Care Provider [phone] Frank Mak MD Unavailable Alfonzo Perkins MD Unavailable [phone] Rosalia Vargas RN Unavailable [phone] Jamari Ellison DO Unavailable Fredi Unger MD Unavailable Elroy Calderon MD Unavailable Ja Holley MD Unavailable [phone] Bartolo Morgan MD Unavailable [phone] Molly Spring RN Unavailable [email or web address] Criss Comse Unavailable [phone] Maximino Dorado MD, PhD Unavailable [phone] Maximino Dorado MD, PhD Unavailable [phone] Lincoln Thomson MD Unavailable Dhaval Slater MD Unavailable Encounter Details Date Type Department Care Team (Latest Contact Info) Description 03/28/2017 Transcribe Orders [facility] [place] [address] 2nd [place] [address] Emile Blake MD [address] [place] [address] Abdominal distention (Primary Dx) Social History Tobacco [...] 02/19/2025 3:00 PM EST Office Visit [facility] [address] [place] [address] [place] [address] Ja Holley MD [address] [place] [address], [address] [place] [address] 04/30/2025 10:30 AM EDT Office Visit [facility] [address] [place] [address] [place] [address] Fredi Elaine DO [address] [place] [address] 05/06/2025 12:00 PM EDT Appointment Department of Radiation Oncology [address] [place] [address] Lincoln Burton, MABLE [address] [facility] ASB1-L2 [place] [address] [email or web address] 07/22/2025 9:40 AM EDT Office Visit [facility] [address], [address] [place] [address] Asif Araiza MD, MS [address] [facility], [address] [place] [address] [email or web address] Scheduled Procedures Name Priority Associated Diagnoses Date/Ti me COLONOSCOPY Gastroesophageal reflux disease with esophagitis without hemorrhage ESOPHAGOGASTRODUODENOSCOPY Gastroesophageal reflux disease with esophagitis without hemorrhage documented as of this encounter Results * TSH (03/28/2017 1:35 PM EST) Pathologist [facility] TSH 0.78 0.27 - 4.20 uIU/mL [facility] Blood 03/28/2017 1:35 PM EST 03/28/2017 1:39 PM EST us Emile Blake MD LAB BLOOD BKR ORDERABLES Fin al Result Performing Organization Address City/[facility]/ZIP Co de Phone Number [address] [address] * Lipase (03/28/2017 1:35 PM EST) Pathologist [facility] LIPASE 34 16 - 63 U/L [facility] Blood 03/28/2017 1:35 PM EST 03/28/2017 1:39 PM EST us Emile Blake MD LAB BLOOD BKR ORDERABLES Fin al Result Performing Organization Address [facility]/ZIP Co de Phone Number [address] [address] * Hepatitis C antibody, qualitative (03/28/2017 1:35 PM EST) Pathologist [facility] HCV Negative Negative [facility] Comment: This is a screening test and should be confirmed with molecular testing Blood 03/28/2017 1:35 PM EST 03/28/2017 1:39 PM EST us Emile Blake MD LAB BLOOD BKR ORDERABLES Fin al Result Performing Organization Address [facility] Co de Phone Number [address] [address] * Hepatitis B surface antigen (03/28/2017 1:35 PM EST) HBV SURFACE ANTIGEN Negative Negative [facility] Blood 03/28/2017 1:35 PM EST 03/28/2017 1:39 PM EST us Emile Blake MD LAB BLOOD BKR ORDERABLES Fin al Result Performing Organization Address [facility] de Phone Number [address] [address] * Hepatitis A antibody, total (03/28/2017 1:35 PM EST) HAV TOTAL AB Negative Negative [facility] Blood 03/28/2017 1:35 PM EST 03/28/2017 1:39 PM EST us Emile Blake MD LAB BLOOD BKR ORDERABLES Fin al Result Performing Organization Address [facility] Co de Phone Number [address] [address] * C-Reactive Protein (03/28/2017 1:35 PM EST) C REACTIVE PROTEIN 0.2 0 - 0.5 mg/L [facility] Blood 03/28/2017 1:35 PM EST 03/28/2017 1:39 PM EST us Emile Blake MD LAB BLOOD BKR ORDERABLES Fin al Result Performing Organization Address [facility] Co de Phone Number [address] [address] documented in this encounter Visit Diagnoses Diagnosis Abdominal distention- Primary Flatulence, eructation, and gas pain documented in this encounter Additional Health Concerns Infection Onset Date Last Indicated Resolved Time CoV-Exposed Comment:Recent close contact documented in the COVID-19 PCR/PRO order 12/04/2020 12/18/2020 12/19/2020 1:25 AM E DT CoV-Risk 01/21/2022 01/21/2022 02/01/2022 1:32 AM EST Resp-Risk 01/25/2025 01/25/2025 documented as of this encounter Care Teams [facility] Owner Relationship Specialty Start Date End Date Kellee Gomez NP [address] [place] [address] [email or web address] PCP - General Family Medicine 01/19/17 05/19/17 [place] [address] [email or web address] PCP - General Internal Medicine 05/20/17 01/07/19 Andrei Coon DO [address] [place] [address] [email or web address] PCP - General Family Medicine 01/08/19 01/03/20 Lupis Copeland MD [address] [place] [address] [email or web address] PCP - General Family Medicine 01/04/20 06/09/20 Gordon Moralez MD [address] [facility] [address] [place] [address] Saji [email or web address] PCP - General 06/10/20 07/22/20 Ja Holley MD [address] [place] [address], [address] [place] [address] PCP - General Internal Medicine 07/23/20 Emile Blake MD [address] [place] [address] Gastroenterology 10/31/18 Frank Mak MD [address] [place] [address], [address] [place] [address] [email or web address] Physical Medicine and Rehabilitation 11/14/20 [place] [address] Psychiatry 02/01/21 10/07/22 Rosalia Vargas, RN [address] [place] [address] [facility] Tray Drier 02/12/21 03/10/21 Jamari Ellison DO [address] [place] [address] [facility] [place] [address] Orthopedic Surgery 07/24/21 Fredi Unger MD [address] [place] [address] Ophthalmology 07/24/21 Elroy Calderon MD [address] [place] [address], [address] [place] [address] [email or web address] Urology 10/27/21 Ja Holley MD [address] [place] [address], [address] [place] [address] [email or web address] Insurance Assigned Provider 05/28/23 Bartolo Morgan MD [address] [place] [address] Psychiatry 10/08/22 Molly Spring RN [address] [place] [address] [email or web address] [email or web address] [email or web address] 02/07/23 10/07/24 Criss Cosme [address] [place] [address] [email or web address] Community Health Worker 03/29/23 03/29/23 Maximino Dorado MD, PhD [address] [place] [address] [email or web address] Radiation Oncology 05/03/23 Maximino Dorado MD, PhD [address] [place] [address] [email or web address] [email or web address] 06/01/23 06/25/23 Lincoln Thomson MD [address] [place] [address], 2nd [place] [address] [email or web address] Physical Medicine and Rehabilitation 06/26/23 Dhaval Slater MD [address] [place] [address] Dr CALIX [address] [place] [address] Neurosurgery 07/07/23 documented as of this encounter Additional Source Comments The information contained in this document represents components of the legal health record. It is not the complete legal health record.[facility]
--- OUTSIDE RECORDS SUMMARY | 2025-01-31 06:36 | XMS_ITS | Encounter Summary ---
Author Organization [facility] Address [address] [place] [phone] Phone Care Team Providers Care Tax Intern Name Role Phone Kellee Gomez NP Primary Care Provider Leonel Alegria MD Primary Care Provider Emile Blake MD Unavailable Andrei Coon DO Primary Care Provider Lupis Copeland MD Primary Care Provider [phone] Gordon Moralez MD Primary Care Provider [phone] Ja Holley MD Primary Care Provider [phone] Frank Mak MD Unavailable Alfonzo Perkins MD Unavailable Rosalia Vargas RN Unavailable [phone] Jamari Ellison DO Unavailable Fredi Unger MD Unavailable Elroy Calderon MD Unavailable Ja Holley MD Unavailable [phone] Bartolo Morgan MD Unavailable [phone] Molly Spring RN Unavailable [email or web address] Criss Cosme Unavailable [phone] Maximino Dorado MD, PhD Unavailable [phone] Maximino Dorado MD, PhD Unavailable [phone] Lincoln Thomson MD Unavailable Dhaval Slater MD Unavailable Encounter Details Date Type Department Care Team (Late st Contact Info) Description 03/02/2017 Procedure Pass [facility], Ct Scan - [address] [address] Social History Tobacco Use Types Packs/Day Years [...] Description 02/19/2025 3:00 PM EST Office Visit [address] [address] Ja Holley MD [address] [place] [address], [address] [place] [address] 04/30/2025 10:30 AM EDT Office Visit [facility] [address] [place] [address] Fredi Elaine DO [address] [place] [address] 05/06/2025 12:00 PM EDT Appointment Department of Radiation Oncology [address] [place] [address] Lincoln Burton, LITIGATION DOCKET MANAGER [address] [place] [address] [email or web address] 07/22/2025 9:40 AM EDT Office Visit [facility] [address] [facility] 3rd Floor, [address] [place] [address] Asif Araiza MD, MS 22 [facility], [address] [place] [address] [email or web address] Scheduled Procedures Name Priority Associated Diagnoses Date/Ti [...] documented as of this encounter Care Teams Tax Intern Relationship Specialty Start Date End Date Kellee Gomez NP [address] [place] [address] [email or web address] PCP - General Family Medicine 01/19/17 05/19/17 Le[place] [address] [email or web address] PCP - General Internal Medicine 05/20/17 01/07/19 Andrei Coon DO [address] [place] [address] [email or web address] PCP - General Family Medicine 01/08/19 01/03/20 Lupis Copeland MD [address] [place] [address] [email or web address] PCP - General Family Medicine 01/04/20 06/09/20 Gordon Moralez MD 110 [facility] [address] [place] [address] Saji [email or web address] PCP - General 06/10/20 07/22/20 Ja Holley MD 22 [facility], [address] [place] [address] PCP - General Internal Medicine 07/23/20 Emile Blake MD [address] [address] Gastroenterology 10/31/18 Frank Mak MD [address] [place] [address], [address] [place] [address] [email or web address] Physical Medicine and Rehabilitation 11/14/20 Alfonzo Perkins MD [address] [place] [address] Psychiatry 02/01/21 10/07/22 Rosalia Vargas, KATEY [address] [place] [address] PHC Psychiatry Teacher 02/12/21 03/10/21 Jamari Ellison DO [address] [place] [address] Orthopedics & Sports Medicine, [facility] [place] [address] Orthopedic Surgery 07/24/21 Fredi Unger MD [address] [place] [address] 2 [place] [address] Ophthalmology 07/24/21 Elroy Calderon MD [address] [place] [address], [address] [place] [address] [email or web address] Urology 10/27/21 Ja Holley MD [address] [place] [address], [address] [place] [address] [email or web address] Insurance Assigned Provider 05/28/23 Bartolo Morgan MD [address] [place] [address] Psychiatry 10/08/22 Molly Spring, KATEY [address] [place] [address] [email or web address] [email or web address] Teacher 02/07/23 10/07/24 Criss Cosme [address] [place] [address] [email or web address] [facility] Community Health Worker 03/29/23 03/29/23 Maximino Dorado MD, PhD [address] [place] [address] [email or web address] Radiation Oncology 05/03/23 Maximino Dorado MD, PhD [address] [place] [address] [email or web address] Radiation Oncology 06/01/23 06/25/23 Lincoln Thomson MD [address] [place] [address], 2[address] [place] [address] [email or web address] Physical Medicine and Rehabilitation 06/26/23 Dhaval Slater MD [address] [place] [address] [place] [address] Neurosurgery 07/07/23 documented as of this encounter Additional Source Comments The information contained in this document represents components of the legal health record. It is not the complete legal health record.[facility]
== END 2025-01-31 06:31 | disposition home or self-care (01) ==
LOC: CF 06:30
PROVIDERS: Visit Provider Internal Medicine
DX: M47.816 Spondylosis without myelopathy or radiculopathy, lumbar region (principal)
CPT/HCPCS: 64493; 64494; J2003; J2795; Q9967

== ENCOUNTER 2025-01-31 09:55 | Outpatient (AMB) | payer MEDICARE, MEDICAID, SELFPAY ==
[2025-01-31 10:49] VITALS: BP 140/76; PULSE 74; RESP 16; O2SAT 96
--- NOTE | 2025-01-31 10:49 | MHC.OFFVIS ---
Vital Signs 01/31/25 10:49 01/31/25 11:53 BP 140/76 H 160/70 H Blood Pressure Location Lt brachial Lt brachial Position Sitting Sitting Respiration 16 16 Pulse 74 96 Pulse Source Pulse Oximeter Pulse Oximeter Pulse Oximetry (%) 96 66 L Oxygen Delivery Method Room Air Room Air Intake Visit Reasons: Bilateral Diagnostic L3-L4-L5 MBB Timber Girdler Required: No Allergies No Known Allergies Allergy (Verified 01/31/25 10:50) Medication List - Last Reconciled 01/31/25 by Marilu Rincon LPN amlodipine 5 mg PO BID cholecalciferol (vitamin D3) 50 mcg PO DAILY clonidine HCl 0.2 mg PO BID diazepam (Valium) 0.5 mg PO BID PRN olmesartan 40 mg PO DAILY rosuvastatin (Crestor) 40 mg PO DAILY tamsulosin 0.4 mg PO BEDTIME tirzepatide (Mounjaro) mg subcut HPI HPI Bilateral Diagnostic L3-L4-L5 MBB: Details: Patient presents for scheduled procedure. Denies any recent cough, cold, infection, fever or other significant changes in medical history since last office visit. [facility] Medical History (Updated 01/17/24 @ 08:29 by Feliberto Delgadillo MD) Pre-diabetes BRIANA (obstructive sleep apnea) BPH (benign prostatic hyperplasia) Hyperlipidemia Hypertension Surgical History (Updated 12/28/23 @ 10:24 by Leslie Mattson RN) History of orthopedic surgery H/O hernia repair History of knee replacement Social History Are you a primary pet care assistant to a significant other at home: No Do you presently have visiting nurse or other home services: No Patient Tobacco Use Status: Never used Tobacco Physical Exam Vital Signs: Last Vital Signs Pulse 74 01/31/25 10:49 Resp 16 01/31/25 10:49 BP 140/76 H 01/31/25 10:49 Pulse Ox 96 01/31/25 10:49 Oxygen Delivery Method Room Air 01/31/25 10:49 Office Procedures Procedure Details: Lumbar Medial Branch Block, [side] L3, L4 medial branches and L5 Dorsal Ramus (2 levels, 3 nerves) After obtaining written consent, pre-procedure blood pressure and pulse were recorded and are in the nursing record for review. The patient was placed in a prone position. The respective lumbosacral area was prepped with chloraprep and draped in sterile fashion. The skin over the target medial branch nerves was anesthetized with 0.5% lidocaine. A 22 gauge 3.5 inch needle was inserted into the target medial branch nerve under fluoroscopic guidance. No paresthesias were elicited with needle placement and aspiration was negative for blood and CSF. Next, 0.2cc of omnipaque 180 was injected to verify positioning in AP and oblique imaging. Next 0.5 ml 0.5% ropivicaine was injected (0.5cc total per level). The identical procedure was performed at the remaining levels. The skin was cleansed and a sterile bandage was applied. Following the procedure the patient's vital signs were stable. The patient tolerated the procedure well and no complications were encountered. Following the procedure the patient's vital signs were stable. The patient was discharged home in good condition with post-procedural instructions. Time Out: Immediately prior to the procedure, the following was verbally confirmed that there is a signed consent form and that the correct patient, planned procedure, site and side are consistent with documentation and that necessary equipment and/or blood products are available prior to the start of the case. Complications: none EBL: <5 cc 00790 Lumbar Facet Inj SINGLE Level- use with FL Gd order: 27152 - Bilateral 75574 Lumbar Facet Inj SECOND Level- use with FL Gd order: 98632 - Bilateral Procedure code (CPT) selection complete Assessment & Plan Assessment & Plan (1) Lumbar spondylosis: Code(s): M47.816 - Spondylosis without myelopathy or radiculopathy, lumbar region Category: Medical Plan Patient is status post bilateral L3, L4 medial branches and L5 dorsal ramus diagnostic blocks. Patient tolerated procedure well and was discharged home in stable condition with discharge instructions. All questions were answered. We will follow-up via telephone or in clinic to assess response to therapy. A follow-up appointment was made during today's visit. Orders: Orders FL guidance in treatment room Today M47.816 - Spondylosis without myelopathy or radiculopathy, lumbar region Coding Level of Care Code Procedure Only Diagnoses Lumbar spondylosis M47.816 CPT Codes Lumbar Facet Injection - 83412 Thoracic Facet Inj CPT: 68754 - Bilateral ([id number]) Lumbar Facet Injection - 48592 Thoracic Facet Inj CPT: 28647 - Bilateral ([id number])
[2025-01-31 11:53] VITALS: BP 160/70; PULSE 96; RESP 16; O2SAT 66
== END 2025-01-31 11:56 | disposition home or self-care (01) ==
LOC: HO.PMCPRC 09:55
PROVIDERS: PCP Internal Medicine; Visit Provider Internal Medicine
DX: M47.816 Spondylosis without myelopathy or radiculopathy, lumbar region (principal)
CPT/HCPCS: 64493; 64494

== ENCOUNTER 2025-02-06 10:44 | Outpatient (AMB) | payer MEDICARE, MEDICAID, SELFPAY ==
--- NOTE | 2025-02-06 10:50 | MHC.OFFVIS ---
Vital Signs 02/06/25 10:51 Height 6 ft 1 in Weight 189 lb BMI 24.9 BP 143/72 H Blood Pressure Location Lt brachial Position Sitting Respiration 16 Pulse 80 Pulse Source Pulse Oximeter Pulse Oximetry (%) 96 Oxygen Delivery Method Room Air Intake Visit Reasons: S/P Bilateral Diagnostic L3-L4-L5 MBB [employer] Required: No Allergies No Known Allergies Allergy (Verified 02/06/25 10:52) Medication List - Last Reconciled 02/06/25 by Marilu Rincon LPN amlodipine 5 mg PO BID cholecalciferol (vitamin D3) 50 mcg PO DAILY clonidine HCl 0.2 mg PO BID diazepam (Valium) 0.5 mg PO BID PRN olmesartan 40 mg PO DAILY rosuvastatin (Crestor) 40 mg PO DAILY tamsulosin 0.4 mg PO BEDTIME tirzepatide (Mounjaro) mg subcut HPI HPI S/P Bilateral Diagnostic L3-L4-L5 MBB: Details: History of Present Illness The patient is a 74 year old male presenting for a follow-up visit to discuss management of chronic low back pain. He has a history of chronic low back pain in the lumbar region since approximately 1973. The pain is positional, exacerbated by sitting, and is worse upon waking from a recumbent position. He finds relief with hot baths. He recently underwent diagnostic lumbar medial branch blocks which provided approximately 7 hours of >90% relief. A prior injection provided 5 to 6 hours of similar relief. His medical history is also significant for bilateral knee replacements and sleeps with a towel between his legs for comfort. He reports significant fear of invasive medical procedures. Pain Description - Onset: The patient has had chronic pain since 1973. - Location: The pain is located in his lower lumbar back, specifically noted at L3, L4, and L5. - Quality: The pain is described as horrible. - Exacerbating Factors: The pain is positional and feels horrible when sitting in a chair. - It hurts worse than ever upon getting up from a lying position. - Relieving Factors: The pain is relieved within two minutes of being in a hot bath. - Associated Symptoms: The patient also reports bilateral shoulder pain described as Results - Test and Diagnostics: Recent diagnostic medial branch blocks provided approximately 7 hours of pain relief. Pain Management: - Affect: The patient expresses being - Analgesia: He reported significant relief from recent diagnostic medial branch blocks, which lasted for about 7 hours. - Activities of Daily Living: His pain is positional and is horrible when sitting. - Pain is also worse upon waking from sleep. - His sleep is also affected by bilateral shoulder pain. - Aberrant Drug Related Behaviors: No aberrant drug-related behaviors were discussed. [facility] Medical History (Updated 02/12/25 @ 15:45 by Feliberto Delgadillo MD) Pre-diabetes BRIANA (obstructive sleep apnea) BPH (benign prostatic hyperplasia) Hyperlipidemia Hypertension Surgical History (Updated 12/28/23 @ 10:24 by Leslie Mattson RN) History of orthopedic surgery H/O hernia repair History of knee replacement Social History Are you a primary respiratory care faculty to a significant other at home: No Do you presently have visiting nurse or other home services: No Patient Tobacco Use Status: Never used Tobacco Physical Exam Vital Signs: Last Vital Signs Pulse 80 02/06/25 10:51 Resp 16 02/06/25 10:51 BP 143/72 H 02/06/25 10:51 Pulse Ox 96 02/06/25 10:51 Oxygen Delivery Method Room Air 02/06/25 10:51 BMI result Body Mass Index 24.9 Assessment & Plan Assessment & Plan (1) Chronic pain: Code(s): G89.29 - Other chronic pain Category: Medical (2) Lumbar spondylosis: Code(s): M47.816 - Spondylosis without myelopathy or radiculopathy, lumbar region Category: Medical Plan Plan Patient was informed and verbally consented to the use of an ambient scribe for clinic note documentation during this visit. 1. Chronic Low Back Pain - The patient has had a positive response to diagnostic medial branch blocks, with the most recent providing approximately 7 hours of relief. - Treatment options discussed included radiofrequency ablation and a temporary medial branch nerve stimulator trial. - It was explained that the stimulator trial should be performed before a potential ablation, as an ablation would denervate the area and render the stimulator less effective. - The patient agreed to proceed with a 60-day temporary medial branch nerve stimulator trial. - The procedure will be staged, starting with the right side, followed by the left side two weeks later. - The patient will require dressing changes once or twice weekly and has agreed to come to the clinic for this. - Activity restrictions were discussed, including no bathing, swimming, or rowing, while exercises like leg presses are permitted. Discussion Notes I discussed treatment options for the patient's chronic low back pain following his positive response to diagnostic medial branch blocks, which provided about 7 hours of relief. We reviewed two main options: radiofrequency ablation (RFA) and a temporary medial branch nerve stimulator trial. Although he initially preferred RFA, I explained the medical rationale for attempting the stimulator trial first, as the stimulator uses the same nerves that an ablation would destroy, thereby making a future stimulator trial less effective after an ablation. I also noted that an ablation is considered more invasive because it involves disrupting nerve tissue. The patient expressed apprehension about invasive procedures but ultimately consented to proceed with the stimulator trial based on my recommendation. I outlined the plan for a 60-day trial, which will be staged starting with the right side, followed by the left side two weeks later. We discussed the logistical requirement of weekly or bi-weekly dressing changes, and he agreed to come to the clinic for this service. Lastly, I advised him on activity restrictions, including no bathing, swimming, or rowing, but cleared him for exercises with a stable back, like leg presses. Patient Instructions - We will proceed with a temporary nerve stimulator trial for your low back pain. - This procedure will be done in two parts: first on your right side, and then on your left side two weeks later. - You will need to have the bandages on your back changed once or twice a week. - You have agreed to come to our clinic for these bandage changes. - During the 60-day trial period, do not take baths or go swimming. - Showers are okay. - Avoid activities that cause a lot of back motion, such as rowing. - Exercises like leg presses where your back remains stable are fine. - Our office will contact you to schedule the procedure. Coding Level of Care Code Est Pt Level 4 (30467) Diagnoses Chronic pain G89.29 Lumbar spondylosis M47.816
[2025-02-06 10:51] VITALS: BP 143/72; PULSE 80; RESP 16; O2SAT 96; BMI 24.9
== END 2025-02-06 11:24 | disposition home or self-care (01) ==
LOC: HO.PMC 10:44
PROVIDERS: PCP Internal Medicine; Visit Provider Internal Medicine
DX: G89.29 Other chronic pain (principal); M47.816 Spondylosis without myelopathy or radiculopathy, lumbar region
CPT/HCPCS: 99214

== ENCOUNTER → 2025-02-06 10:44 | Outpatient (BNVA) | payer MEDICARE, MEDICAID, SELFPAY | PROVIDERS: PCP Internal Medicine; Visit Provider Internal Medicine | DX: G89.29 Other chronic pain (principal); M47.816 Spondylosis without myelopathy or radiculopathy, lumbar region | CPT/HCPCS: 99212 ==